=== PATIENT | male | born 1945 | race Caucasian/White ===

== ENCOUNTER 2022-03-13 10:39 | Outpatient (CLI) | payer OTHER, SELFPAY ==
[2022-03-13 21:44] LABS: Albumin* 4.6 g/dL (3.3-5.0); Chloride* 106 mmol/L (96-114)
[2022-03-13 21:45] LABS: Potassium* 5.2 mmol/L (3.6-5.1); Sodium* 137 mmol/L (135-149)
[2022-03-13 21:47] LABS: Aspartate Amino Transferase* 42 U/L (12-35); Bilirubin Total* 1.4 mg/dL (0.1-1.5); Carbon Dioxide* 20 mmol/L (20-32); Cholesterol* 162 mg/dL (90-199); Creatinine* 1.6 mg/dL (0.5-1.5); Estimated Glomerular Filt Rate 44 ml/min; Total Protein* 7.4 g/dL (6.0-8.3)
[2022-03-13 21:48] LABS: Alanine Aminotransferase* 14 U/L (4-50); Alkaline Phosphatase* 124 U/L (40-150); Blood Urea Nitrogen* 21 mg/dL (7-30); Calcium* 9.1 mg/dL (8.4-10.6); Glucose* 93 mg/dL (60-115); HDL Cholesterol* 53 mg/dL (>=40); LDL Cholesterol Calculated 87 mg/dL (<100); Triglycerides* 111 mg/dL (40-149)
[2022-03-13 23:40] LABS: PSA Screen* 0.66 ng/mL (0.10-4.00); Vitamin B12* 335 pg/mL (243-894)
[2022-03-15 19:43] LABS: Keppra (Levetiracetam) 14 ug/mL (10-40)
== END 2022-03-13 10:40 | disposition home or self-care (01) ==
PROVIDERS: PCP Physician Assistant Medical; Visit Provider Physician Assistant Medical
DX: Z00.00 Encounter for general adult medical examination without abnormal findings (principal); I10 Essential (primary) hypertension; N18.9 Chronic kidney disease, unspecified; E78.5 Hyperlipidemia, unspecified; G40.219 Localization-related (focal) (partial) symptomatic epilepsy and epileptic syndromes with complex partial seizures, intractable, without status epilepticus; Z13.29 Encounter for screening for other suspected endocrine disorder; Z12.5 Encounter for screening for malignant neoplasm of prostate
CPT/HCPCS: 80053; 80061; 80177; 82607; 84153; 84443

== ENCOUNTER 2022-03-17 07:53 | Outpatient (CLI) | payer OTHER, SELFPAY ==
--- NOTE | 2022-03-17 08:15 | CRLHL7_ITS ---
For Patients: As a result of the Century Cures Act, medical imaging exams and procedure reports are released immediately into your electronic medical record. You may view this report before your referring provider. If you have questions, please contact your health care provider. Examination: US abdominal aorta Indication: Abdominal aortic aneurysm screening. Technique: Hung scale and color Doppler images of the aorta and common iliac arteries are obtained. Comparison: None Findings: Proximal aorta: 2.6 x 3.0 cm Mid aorta: 2.1 x 2.6 cm Distal aorta: 3.1 x 3.5 cm Right common iliac artery: 1.3 x 1.6 cm Left common iliac artery: 1.3 x 1.6 cm Diffuse atherosclerotic disease. 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 Dictated by Wesley Verde MD @ 03/17/2022 8:51:34 AM (Electronically Signed)
== END 2022-03-17 07:54 | disposition home or self-care (01) ==
PROVIDERS: PCP Physician Assistant Medical; Visit Provider Physician Assistant Medical
DX: Z13.6 Encounter for screening for cardiovascular disorders (principal); I71.4 Abdominal aortic aneurysm, without rupture
CPT/HCPCS: 76706

== ENCOUNTER 2022-05-08 11:24 | Outpatient (CLI) | payer OTHER, SELFPAY ==
[2022-05-08 22:07] LABS: Potassium* 4.5 mmol/L (3.6-5.1)
== END 2022-05-08 11:25 | disposition home or self-care (01) ==
PROVIDERS: PCP Physician Assistant Medical; Visit Provider Physician Assistant Medical
DX: E87.5 Hyperkalemia (principal)
CPT/HCPCS: 84132

== ENCOUNTER 2022-07-27 16:03 | Outpatient (CLI) | payer OTHER, SELFPAY ==
[2022-07-27 13:42] LABS: Albumin* 4.3 g/dL (3.3-5.0); Chloride* 105 mmol/L (96-114)
[2022-07-27 13:43] LABS: Potassium* 4.8 mmol/L (3.6-5.1); Sodium* 138 mmol/L (135-149)
[2022-07-27 13:45] LABS: Alanine Aminotransferase* 21 U/L (4-50); Alkaline Phosphatase* 74 U/L (40-150); Aspartate Amino Transferase* 29 U/L (12-35); Blood Urea Nitrogen* 27 mg/dL (7-30); Carbon Dioxide* 26 mmol/L (20-32); Creatinine* 1.6 mg/dL (0.5-1.5); Estimated Glomerular Filt Rate 44 ml/min; Glucose* 91 mg/dL (60-115); Total Protein* 7.1 g/dL (6.0-8.3)
== END 2022-07-27 16:04 | disposition home or self-care (01) ==
PROVIDERS: PCP Physician Assistant Medical; Visit Provider Physician Assistant Medical
DX: N18.9 Chronic kidney disease, unspecified (principal); Z79.01 Long term (current) use of anticoagulants
CPT/HCPCS: 80053

== ENCOUNTER 2023-06-01 09:30 | Outpatient (CLI) | payer OTHER, SELFPAY | END 2023-06-01 09:31 | disposition home or self-care (01) | LOC: NFLDREF 06-04 07:45 | PROVIDERS: PCP Physician Assistant Medical; Referring Provider Physician Assistant Medical; Visit Provider Physician Assistant Medical | DX: I50.9 Heart failure, unspecified (principal); Z79.01 Long term (current) use of anticoagulants; Z12.5 Encounter for screening for malignant neoplasm of prostate | CPT/HCPCS: 80053; 80061; 84153 ==

== ENCOUNTER 2023-06-18 12:50 | Outpatient (CLI) | payer OTHER, SELFPAY | END 2023-06-18 12:51 | disposition home or self-care (01) | LOC: LKVREF 12:51 | PROVIDERS: PCP Physician Assistant Medical; Visit Provider Physician Assistant Medical | DX: I50.9 Heart failure, unspecified (principal); E87.5 Hyperkalemia | CPT/HCPCS: 83880 ==

== ENCOUNTER 2023-07-05 09:35 | Outpatient (CLI) | payer OTHER, SELFPAY | END 2023-07-05 09:36 | disposition home or self-care (01) | LOC: NFLDREF 07-11 20:21 | PROVIDERS: PCP Physician Assistant Medical; Referring Provider Physician Assistant Medical; Visit Provider Physician Assistant Medical | DX: Z79.01 Long term (current) use of anticoagulants (principal) | CPT/HCPCS: 85610 ==

== ENCOUNTER 2023-09-19 09:26 | Inpatient (IN) | payer OTHER, SELFPAY ==
[2023-09-19] VITALS (12 sets, daily range): BP systolic 139–199; BP diastolic 91–160; PULSE 53–70; RESP 14–20; TEMP 36.5–37; O2SAT 90–96; BMI 32.3; BMI 32.0
--- NOTE | 2023-09-19 09:38 | CT_ITS ---
Patient: MERCEDES MCDONOUGH Facility:?[facility] RIS Patient ID:?[id number] Site Patient ID:?[id number]. Site :?1945 Study:?CT-Head W/O STROKE PROTOCOL-09/19/2023 9:56:42 AM Ordering Physician:NATO Final Report: INDICATION: Stroke, left-sided weakness TECHNIQUE: CT of the head was performed without IV contrast. COMPARISON: 12/02/2020. FINDINGS: Parenchyma: No acute hemorrhage or large territory infarct. Moderate confluent periventricular white matter hypoattenuation is nonspecific and is favored to represent chronic small vessel ischemic disease. Right frontal lobe encephalomalacia. Chronic left cerebellar encephalomalacia. 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 Ventricles and extra-axial spaces: Appropriate for age. Visualized paranasal sinuses: Opacified left maxillary sinus with thickening of the left maxillary sinus bradshaw; dehiscence of the lateral wall the maxillary sinus. Mild mucosal thickening of the bilateral ethmoid sinuses. Mastoid air cells: Clear. Bones: No focal abnormality. Additional comment: Partial visualization of postsurgical changes from median sternotomy. IMPRESSION: 1. No acute hemorrhage or large territory infarct. 2. Chronic left maxillary sinusitis. Findings discussed with Dr. George at 10:06 a.m. on 09/19/2023. Please note that all CT scans at this facility use dose modulation, iterative reconstruction, and/or weight-based dosing when appropriate to reduce radiation dose to as low as reasonably achievable. Dictated by Memo Snyder MD @ 09/19/2023 10:07:52 AM Signed by:?Memo Snyder MD @09/19/2023 10:07:52 AM (Electronic Signature)
--- NOTE | 2023-09-19 09:42 | CT_ITS ---
Patient: MERCEDES MCDONOUGH Facility:?[facility] RIS Patient ID:?[id number] Site Patient ID:?[id number]. Site :?1945 Study:?CT-Head Angio CTA HEAD W/ISOVUE 370 95CC STROKE-09/19/2023 10:03:49 AM Ordering Physician:NATO Final Report: CT ANGIOGRAM HEAD DATE: 09/19/2023 CLINICAL HISTORY: Patient with left-sided weakness. TECHNIQUE: Standard helical CT image acquisition through the intracranial circulation following intravenous administration of contrast material with bolus tracking. 2D and 3D MIP images for post-processing were performed and interpreted on an independent workstation and 3D images were permanently archived. COMPARISON: CT same day. FINDINGS: There is no proximal intracranial large vessel occlusion. There is no intracranial aneurysm. The right internal carotid artery is normal. The right middle cerebral artery and its branches are normal. The right anterior cerebral artery and its branches are normal. The left internal carotid artery is normal. The left middle cerebral artery and its branches are normal. The left anterior cerebral artery and its branches are normal. The anterior communicating artery is well visualized and appears normal. The right vertebral artery and PICA are normal. The left vertebral artery and PICA are normal. The left vertebral artery is dominant. The basilar artery is patent and appears normal. The right posterior cerebral artery is normal. The left posterior cerebral artery is normal. The visualized venous structures are patent. IMPRESSION: Patent proximal intracranial vasculature. Findings were communicated to Dr. George at 10:05 AM. Please note that all CT scans at this facility use dose modulation, iterative reconstruction, and/or weight-based dosing when appropriate to reduce radiation dose to as low as reasonably achievable. Dictated by: Maxine Gupta MD @ 09/19/2023 10:11:39 Signed by:?Maxine Gupta MD @09/19/2023 10:11:39 AM (Electronic Signature)
--- NOTE | 2023-09-19 09:42 | CT_ITS ---
Patient: MERCEDES MCDONOUGH Facility:?[facility] RIS Patient ID:?[id number] Site Patient ID:?[id number]. Site :?1945 Study:?CT-Neck Angio CTA NECK W/ISOVUE 370 95CC STROKE-09/19/2023 10:03:26 AM Ordering Physician:NATO Final Report: CT ANGIOGRAM NECK DATE: 09/19/2023 CLINICAL HISTORY: Patient with left-sided weakness. TECHNIQUE: Standard helical CT image acquisition of the neck up to the skull base after bolus intravenous contrast enhancement. 2D and 3D MIP images for post-processing were performed and interpreted on an independent workstation and 3D images were permanently archived. COMPARISON: CT same day. FINDINGS: The origins of the great vessels from the aortic arch are patent. The origin of the right vertebral artery demonstrates severe narrowing. The origin of the left vertebral artery demonstrates mild narrowing. The common carotid arteries are patent. There is a mild (<50%) stenosis at the origin of the right internal carotid artery by NASCET criteria caused by calcified plaque with a >2mm residual lumen. There is a mild (<50%) stenosis at the origin of the left internal carotid artery by NASCET criteria caused by calcified plaque with a >2mm residual lumen. The rest of the cervical segments of the internal carotid arteries are patent up to the skull base. The left vertebral artery is dominant. The cervical segments of the vertebral arteries are patent up to the skull base. The visualized lung apices are unremarkable. The thyroid gland is unremarkable. The soft tissues of the neck are unremarkable. There are degenerative changes in the cervical spine. IMPRESSION: 1. Mild (<50%) stenosis at the origin of the right internal carotid artery by NASCET criteria caused by calcified plaque with a >2mm residual lumen. 2. Mild (<50%) stenosis at the origin of the left internal carotid artery by NASCET criteria caused by calcified plaque with a >2mm residual lumen. 3. Severe right and mild dominant left vertebral artery origin stenosis. Findings were communicated to Dr. George at 10:05 AM. Please note that all CT scans at this facility use dose modulation, iterative reconstruction, and/or weight-based dosing when appropriate to reduce radiation dose to as low as reasonably achievable. Dictated by: Maxine Gupta MD @ 09/19/2023 10:09:36 Signed by:?Maxine Gupta MD @09/19/2023 10:09:36 AM (Electronic Signature)
--- NOTE | 2023-09-19 09:46 | ED.GENADULT ---
HPI - General Adult General Chief complaint: Neuro Symptoms/Altered Deficit Stated complaint: Possible stroke Time Seen by Provider: 09/19/23 09:32 History of Present Illness HPI narrative: Patient is a 70 year white male that is had a history of ischemic cardiomyopathy, coronary artery aneurysm, chronic atrial fibrillation paroxysmal, on chronic Coumadin, who has had a history of a CVA in the past by chart review, presents with left arm weakness some tingling in his right arm weakness in his lower extremities bilaterally that started when he arose this morning. He reports that at midnight last night he was well helped his back from the bathroom. This morning when he got up at about 7:00 a.m. he sat up slowly in noticed tingling in his right arm and noticed that his left arm was not as good as it has been in trouble getting the bathroom, his family presents with him to the emergency department. He continues on Coumadin, his last INR is unknown. He has no chest pain, he still feels weak in his left upper extremity and some tingling this in his right arm but mostly is symptoms are no left arm. His visions not been affected, no facial asymmetry is been noted. By description it appears his last known well as about midnight last night Related Data Home Medications Medication Instructions Recorded Confirmed nitroglycerin 0.4 mg sublingual 0.4 mg sublingual Q5M PRN 02/02/22 06/18/23 tablet levetiracetam 500 mg tablet 500 mg PO BID 03/13/22 06/18/23 (Keppra) torsemide 5 mg tablet 5 mg PO 07/07/22 06/18/23 ascorbic acid (vitamin C) 500 mg 500 mg PO QDAY 10/14/22 06/18/23 tablet cholecalciferol (vitamin D3) 62.5 mcg PO .QD 10/14/22 06/18/23 mcg (2,500 unit) capsule amiodarone 200 mg tablet 200 mg PO BID 06/18/23 06/18/23 aspirin 81 mg chewable tablet 81 mg PO DAILY 09/06/23 09/06/23 Previous Rx's Medication Instructions Recorded benzonatate 200 mg capsule 200 mg PO TID PRN cough #30 caps 10/14/22 ezetimibe 10 mg tablet 10 mg PO QDAY #90 tabs 06/20/23 warfarin 1 mg tablet 1 mg PO DIRECTED #90 tabs 07/05/23 pantoprazole 40 mg tablet,delayed 40 mg PO QDAY #90 tabs 07/31/23 release metoprolol succinate 50 mg 50 mg PO QDAY #90 tabs 08/09/23 tablet,extended release 24 hr losartan 50 mg tablet 50 mg PO QDAY #90 tabs 09/06/23 Allergies Allergy/AdvReac Type Severity Reaction Status Date / Time amlodipine Allergy Severe hives/rash Verified 09/06/23 10:48 iothalamate Allergy Severe had to do Uncoded 09/06/23 10:48 chest compressions and shock heart with angio dye statins Allergy Intermediate muscle Uncoded 09/06/23 10:48 aches HMG-CoA reductase inhibitor AdvReac Intermediate muscle Uncoded 09/06/23 10:48 aches Review of Systems Status of ROS: Reports: 6 or more systems reviewed and unremarkable except as noted in History and below [facility] Medical History History of CVA (cerebrovascular accident) ?Z86.73 - Personal history of transient ischemic attack (TIA), and cerebral infarction without residual deficits (ICD-10) Flexion deformity, right elbow ?M21.221 - Flexion deformity, right elbow (ICD-10) Ribs, multiple fractures ?S22.49XA - Multiple fractures of ribs, unspecified side, initial encounter for closed fracture (ICD-10) BPPV (benign paroxysmal positional vertigo) ?H81.10 - Benign paroxysmal vertigo, unspecified ear (ICD-10) Surgical History History of three vessel coronary artery bypass ?Z95.1 - Presence of aortocoronary bypass graft (ICD-10) History of surgery on right wrist ?Z98.890 - Other specified postprocedural states (ICD-10) History of carpal tunnel surgery of left wrist ?Z98.890 - Other specified postprocedural states (ICD-10) History of ankle surgery ?Z98.890 - Other specified postprocedural states (ICD-10) Family History Mother Asthma Maternal Grandmother Diabetes Family/Other Cardiomyopathy Father High blood pressure Social History Narrative: Does not use illicit drugs Former smoker- quit in 2011 Occasional alcohol consumption Smoking Status: Former smoker Do you use any of these nicotine containing products: None Second hand tobacco smoke exposure: No How often do you have a drink containing alcohol: monthly or less How many standard drinks containing alcohol do you have on a typical day: 1 or 2 How often do you have six or more drinks on one occasion: Never AUDIT-C Alcohol total score: 1 Non-prescribed substance use: denies use Little interest or pleasure in doing things: more than half the days Feeling down, depressed, or hopeless: not at all service: No Exam Narrative: Exam Narrative: Objective: Patient's vital signs show blood pressure 187/1 60 and this will be recheck, his afebrile, his pulse is 56, O2 sat is 95% on room air He is alert orient x3, no facial asymmetry He does have weakness to grasp in his left upper extremity is unable to pronate and supinate his left upper extremity, but he is able to hold his arms forward and does not have significant drift for up to 10 seconds Heart rhyth regular with occasional ectopic beat, 2/6 systolic murmur Abdomen benign Extremities without edema 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 His sensation appears intact. Based on his NIH stroke scale this to be about 7 given his lateral gaze deficit, his left arm weakness. Const: Vital Signs, click to edit/add: Vital Signs - 24 hr 09/19/23 09:34 09/19/23 09:34 09/19/23 10:05 Temperature 97.7 F Pulse Rate 62 Pulse Rate [Pulse Oximeter] 56 L Respiratory Rate 20 17 Blood Pressure 192/112 H Blood Pressure [Le ft Upper Arm] 187/160 H Pulse Oximetry 95 94 94 Oxygen Delivery Me thod Room Air 09/19/23 10:15 09/19/23 10:30 09/19/23 10:48 Temperature Pulse Rate 58 L 61 56 L Pulse Rate [Pulse Oximeter] Respiratory Rate 14 14 18 Blood Pressure 182/105 H 173/118 H 188/96 H Blood Pressure [Le ft Upper Arm] Pulse Oximetry 96 94 90 Oxygen Delivery Me thod 09/19/23 11:02 09/19/23 11:15 Temperature Pulse Rate 59 L 61 Pulse Rate [Pulse Oximeter] Respiratory Rate 14 14 Blood Pressure 187/112 H 169/102 H Blood Pressure [Le ft Upper Arm] Pulse Oximetry 93 93 Oxygen Delivery Me thod Course Vital Signs Vital signs: Initial Vital Signs Temperature 97.7 F 09/19/23 09:34 Temperature Source Temporal Artery Scan 09/19/23 09:34 Pulse Rate 56 L 09/19/23 09:34 Pulse Rhythm Regular 09/19/23 09:34 Respiratory Rate 20 09/19/23 09:34 Blood Pressure 187/160 H 09/19/23 09:34 Blood Pressure Mean 169 H 09/19/23 09:34 Blood Pressure Position Supine 09/19/23 09:34 Pulse Oximetry 95 09/19/23 09:34 Oxygen Delivery Method Room Air 09/19/23 09:34 Vital Signs Temperature 97.7 F 09/19/23 09:34 Pulse Rate 56 L 09/19/23 09:34 Respiratory Rate 20 09/19/23 09:34 Blood Pressure 187/160 H 09/19/23 09:34 Pulse Oximetry 95 09/19/23 09:34 Oxygen Delivery Method Room Air 09/19/23 09:34 Temperature 97.7 F 09/19/23 11:35 Pulse Rate 56 L 09/19/23 11:35 Respiratory Rate 14 09/19/23 11:35 Blood Pressure 187/160 H 09/19/23 11:35 Pulse Oximetry 93 09/19/23 11:15 Oxygen Delivery Method Room Air 09/19/23 09:34 Medications Administered Medications: Discontinued Medications Generic Name Dose Route Start Last Admin Trade Name Freq PRN Reason Stop Dose Admin Aspirin 324 mg 09/19/23 10:09 09/19/23 10:17 Aspirin 81 Mg Tab.Chew PO 09/19/23 10:10 324 mg ONCE ONE Administration Sodium Chloride 500 mls @ 500 mls/hr 09/19/23 09:38 09/19/23 11:21 0.9 % Sodium Chloride 500 Ml IV 09/19/23 10:37 Infused .Q1H ONE Infusion Medical Decision Making MDM Narrative Medical decision making narrative: Patient is a 78-year-old male with history of stroke in the past by chart review, history of paroxysmal atrial fibrillation, on Coumadin. The patient appears to have a last known well at midnight last night. He did not feel well this morning when he got up. He describes mostly tingling in his right arm and left arm weakness, he reports both legs felt weak as well. He has not had any recent illness, no chest pain. He on presentation a stroke code was activated and he was sent to CT and CTA. Dr. missy ramires was consulted at [facility] and will do interview and give recommendations based on imaging studies. He is concerned that this far out there may not be much utility in treatment with lytics, but perhaps thrombectomy might be considered. Will discuss with the family and after Dr. mendez consults. Lab studies, EKG, telemetry monitoring, IV fluid to be given. Addendum 10:19 a.m. patient's head and neck CT scans are pretty unremarkable other than pretty significant narrowing of the right vertebral artery. Dr. Ramires reviewed the films. Wilmar that local care would be appropriate likely at this time given his duration of symptoms and findings on CT CTA. He did recommend aspirin be given. He will consult with the patient via video and give further recommendations. EKG by my read shows normal sinus rhythm with occasional PVCs no acute ST T wave changes. Dr. Ramires called back and did suggest getting an MRI of the head, increasing the patient's INR. Continuing aspirin. Lab Data Labs: Lab Results 09/19/23 09/19/23 Range/Units 09:40 09:47 WBC 5.73 (4.50-11.00) K/uL RBC 5.13 (4.30-5.90) m/uL Hgb 15.4 (13.5-17.5) gm/dL Hct 47.0 (37.0-53.0) % MCV 92 (80-100) fL MCH 30 (26-34) pg MCHC 33 (32-36) gm/dL RDW Coeff of Maximus 14.4 (11.5-15.5) % Plt Count 178 (140-440) K/uL Neut % (Auto) 68.5 (42.0-72.0) % Lymph % (Auto) 18.0 L (20-44) % Blaine % (Auto) 11.5 H (0.0-11.0) % Eos % (Auto) 1.6 (0.0-7.0) % Baso % (Auto) 0.2 (0.0-3.0) % Neut # (Auto) 3.93 (1.7-7.0) K/uL Lymph # (Auto) 1.00 (0.90-2.90) K/uL Blaine # (Auto) 0.70 (0.00-0.90) K/UL Eos # (Auto) 0.09 (0.00-0.50) K/uL Baso # (Auto) 0.01 (0.00-0.30) K/uL Abs Immat Gran (auto) 0.01 (0.00-0.30) K/uL Imm/Tot Granulo (auto) 0.2 % INR 1.77 H (0.91-1.10) APTT 32 (23-33) Seconds Sodium 138 (135-149) mmol/L Potassium 4.3 (3.6-5.1) mmol/L Chloride 107 (96-114) mmol/L Carbon Dioxide 23 (20-32) mmol/L Anion Gap 8 (7-15) mEq/L BUN 24 (7-30) mg/dL Creatinine 1.7 H (0.5-1.5) mg/dL Estimated Creat Clear 32.32 Estimated GFR 41 ml/min Glucose 99 (60-115) mg/dL Calcium 9.5 (8.4-10.6) mg/dL Total Bilirubin 1.1 (0.1-1.5) mg/dL Direct Bilirubin 0.2 (0.0-0.5) mg/dL AST 28 (12-35) U/L ALT 17 (4-50) U/L Alkaline Phosphatase 74 (40-150) U/L Troponin I < 0.01 L (0.01-0.04) ng/mL C-Reactive Protein < 0.5 L (0.5-1.0) mg/dL NT-Pro-B Natriuret Pep 921 pg/mL Total Protein 7.5 (6.0-8.3) g/dL Albumin 4.5 (3.3-5.0) g/dL Urine Color Yellow (Yellow) Urine Appearance Clear (Clear) Urine pH 7.5 (5.0-8.5) Ur Specific Blackstone 1.015 (1.000-1.030) Urine Protein 2+ A (Negative) Urine Glucose (UA) Negative (Negative) Urine Ketones Negative (Negative) Urine Blood Negative (Negative) Urine Nitrite Negative (Negative) Urine Bilirubin Negative (Negative) Urine Urobilinogen 0.2 (0.2-1.0) Ur Leukocyte Esterase Negative (Negative) Urine RBC 0-2 (0-2) Urine WBC 0-2 (0-5) Ur Squamous Epith Cells None (None-Few) Urine Bacteria None (None) SARS-CoV-2 (PCR) Negative SARS-CoV-2 (Negative) Influenza Type A (PCR) Negative PCR FLU A (Negative) Influenza Type B (PCR) Negative PCR FLU B (Negative) RSV (PCR) Negative PCR RSV (Negative) Discharge Plan Discharge Clinical Impression: Acute CVA (cerebrovascular accident) Patient Disposition: Admitted As Inpatient
[2023-09-19 10:07] LABS: Basophils Absolute Auto 0.01 K/uL (0.00-0.30); Basophils Percent Auto 0.2 % (0.0-3.0); Eosinophils Absolute Auto 0.09 K/uL (0.00-0.50); Eosinophils Percent Auto 1.6 % (0.0-7.0); Hemoglobin* 15.4 gm/dL (13.5-17.5); Immature Granulocytes Abs Auto 0.01 K/uL (0.00-0.30); Immature Granulocytes Pct Auto 0.2 %; Mean Corpuscular HGB Conc 33 gm/dL (32-36); Mean Corpuscular Hemoglobin 30 pg (26-34); Mean Corpuscular Volume 92 fL (80-100); Monocytes Percent Auto 11.5 % (0.0-11.0); Neutrophils Absolute Auto 3.93 K/uL (1.7-7.0); Neutrophils Percent Auto 68.5 % (42.0-72.0); Platelet Count* 178 K/uL (140-440); RDW Coefficient of Variation % 14.4 % (11.5-15.5); Red Blood Count 5.13 m/uL (4.30-5.90); Slide Review Reflex No; White Blood Count* 5.73 K/uL (4.50-11.00)
[2023-09-19 10:10] LABS: Albumin* 4.5 g/dL (3.3-5.0); Chloride* 107 mmol/L (96-114); Sodium* 138 mmol/L (135-149)
[2023-09-19 10:11] LABS: Potassium* 4.3 mmol/L (3.6-5.1)
[2023-09-19 10:13] LABS: Anion Gap 8 mEq/L (7-15); Aspartate Amino Transferase* 28 U/L (12-35); Bilirubin Direct* 0.2 mg/dL (0.0-0.5); Bilirubin Total* 1.1 mg/dL (0.1-1.5); Blood Urea Nitrogen* 24 mg/dL (7-30); Carbon Dioxide* 23 mmol/L (20-32); Creatinine* 1.7 mg/dL (0.5-1.5); Est. Creatinine Clearance* 32.32; Estimated Glomerular Filt Rate 41 ml/min; Total Protein* 7.5 g/dL (6.0-8.3)
[2023-09-19 10:14] LABS: Alanine Aminotransferase* 17 U/L (4-50); Alkaline Phosphatase* 74 U/L (40-150); Calcium* 9.5 mg/dL (8.4-10.6); Glucose* 99 mg/dL (60-115)
[2023-09-19] MEDS: ASPIRIN 81 MG TAB.CHEW 324 MG PO (10:17)
[2023-09-19] MEDS: 0.9 % SODIUM CHLORIDE 500 ML 500 ML IV (10:18)
[2023-09-19 10:26] LABS: C Reactive Protein* < 0.5 mg/dL (0.5-1.0); NT Pro B Type NatriureticPept* 921 pg/mL; Troponin I* < 0.01 ng/mL (0.01-0.04)
[2023-09-19 10:30] LABS: INR 1.77 (0.91-1.10); Prothrombin Time 21.8 Seconds
[2023-09-19 10:31] LABS: Partial Thromboplastin Time* 32 Seconds (23-33)
[2023-09-19 10:33] LABS: PCR FLU A Negative PCR FLU A (Negative); PCR FLU B Negative PCR FLU B (Negative); PCR RSV Negative PCR RSV (Negative); SARS PCR* Negative SARS-CoV-2 (Negative)
[2023-09-19 10:59] LABS: Appearance Urine Clear (Clear); Bilirubin Urine Negative (Negative); Blood Urine Negative (Negative); Color Urine Yellow (Yellow); Glucose Urine Negative (Negative); Ketones Urine Negative (Negative); Leukocyte Esterase Urine Negative (Negative); Nitrite Urine Negative (Negative); Protein Urine 2+ (Negative); Specific Gravity Urine 1.015 (1.000-1.030); Urobilinogen Urine 0.2 (0.2-1.0); pH Urine 7.5 (5.0-8.5)
[2023-09-19 11:09] LABS: RBC Urine 0-2 (0-2); WBC Urine 0-2 (0-5)
--- NOTE | 2023-09-19 13:05 | MR_ITS ---
Patient: MERCEDES MCDONOUGH Facility:?[facility] RIS Patient ID:?[id number] Site Patient ID:?[id number]. Site :?1945 Study:?MRI-Head W/O-09/19/2023 3:39:09 PM Ordering Physician:ATPAN CORCORAN Final Report: Indication: Left face and arm numbness. Technique: Multiplanar, multisequence MRI of the brain was performed without intravenous contrast. Comparison: CT head 09/19/2023. MR brain 12/03/2020. Findings: Moderate thinning of the corpus callosum. Partially empty sella morphology. Moderate degenerative change visualized upper cervical spine. Innumerable foci of restricted diffusion, predominantly involving the right cerebral hemisphere and cerebellum although also involving the left parietal, occipital, medial temporal regions and cerebellum. There is corresponding T2 FLAIR hyperintensity. The ventricles are proportionate to the cerebral sulci. The 4th ventricle appears midline. The basal cisterns appear patent. No abnormal extra-axial fluid collection identified. Moderate parenchymal volume loss. Progressed moderate T2 FLAIR hyperintense foci within the subcortical and periventricular white matter, favored to represent chronic ischemic microvascular disease. Chronic right frontal and bilateral cerebellar infarcts. There is no intracranial mass, abnormal mass-effect or midline shift identified. Both globes are preserved. Severe left maxillary sinus mucosal disease. Impression: 1. Hfixq-[id number]-left diffuse/innumerable foci of cerebral and cerebellar acute/subacute infarcts. Overall this is suggestive of a central embolic phenomena. 2. Progressed moderate chronic ischemic microvascular disease. 3. Stable chronic right frontal and bilateral cerebellar infarcts. Dictated by Torsten Zhong MD @ 09/19/2023 3:54:26 PM Signed by:?Torsten Zhong MD @09/19/2023 3:54:26 PM (Electronic Signature)
[2023-09-19 13:22] LABS: Lab Add On Test New Spec Needed
--- NOTE | 2023-09-19 14:05 | P.IMHP_ITS ---
Hospitalist- H&P: HPI History of Present Illness Date Seen: 09/19/23 Chief complaint: Possible stroke Narrative: Isra Lehman is a 78 year old male with a history of ischemic stroke, anticoagulation with Coumadin for atrial fibrillation, coronary artery disease for which he has had a CABG, hypertension and hyperlipidemia presented through the ER today for concerns of left arm weakness. His son, Jelani, is here with him and helps to give history. Marino was up around midnight helping his get to the bathroom and back and felt okay at that time, but was not seen by anyone other than his who has some cognitive impairment and could not contribute meaningfully to the history although she is in the room with us. At 7 in the morning when he woke up, his son who lives with them, had to help him get his medications because his left arm was not working. Jelani noticed that Marino was also leaning to the left and seem to be having trouble walking with what looked like a weak left leg. Marino tells me that he has been having trouble keeping his INR within the 2-3 range recently since he started amiodarone 3 months ago. He also notes that he sometimes goes out for salad at [facility] and that seems to throw off his INR as well. He denies any headache, dizziness or lightheadedness, chest pain or shortness of breath. Jelani notes that Marino's left arm is already starting to move better than it was in the emergency department. Review of Systems Status of ROS: Reports: 10 or more systems reviewed and unremarkable except as noted in History and below [facility] Medical History (Updated 09/19/23 @ 19:01 by Laila Villalta MD) Ascending aortic aneurysm ?I71.21 - Aneurysm of the ascending aorta, without rupture (ICD-10) Abdominal aortic aneurysm (AAA) ?I71.40 - Abdominal aortic aneurysm, without rupture, unspecified (ICD-10) Former smoker ?Z87.891 - Personal history of nicotine dependence (ICD-10) Long-term (current) use of anticoagulants, INR goal 2.0-3.0 ?Z79.01 - [facility] (current) use of anticoagulants (ICD-10) Partial symptomatic epilepsy with complex partial seizures, intractable, without status epilepticus ?G40.219 - Localization-related (focal) (partial) symptomatic epilepsy and epileptic syndromes with complex partial seizures, intractable, without status epilepticus (ICD-10) Paroxysmal atrial fibrillation ?I48.0 - Paroxysmal atrial fibrillation (ICD-10) Hyperlipidemia ?E78.5 - Hyperlipidemia, unspecified (ICD-10) Gastroesophageal reflux ?K21.9 - Gastro-esophageal reflux disease without esophagitis (ICD-10) 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 - Ventricular premature depolarization (ICD-10) Coronary artery aneurysm ?I25.41 - Coronary artery aneurysm (ICD-10) COPD (chronic obstructive pulmonary disease) ?J44.9 - Chronic obstructive pulmonary disease, unspecified (ICD-10) Congestive heart failure ?I50.9 - Heart failure, unspecified (ICD-10) CKD (chronic kidney disease) ?N18.9 - Chronic kidney disease, unspecified (ICD-10) Cerebrovascular disease ?I67.9 - Cerebrovascular disease, unspecified (ICD-10) Coronary artery disease ?I25.10 - Atherosclerotic heart disease of nikolski coronary artery without angina pectoris (ICD-10) Hypertension ?I10 - Essential (primary) hypertension (ICD-10) History of CVA (cerebrovascular accident) ?Z86.73 - Personal history of transient ischemic attack (TIA), and cerebral infarction without residual deficits (ICD-10) Flexion deformity, right elbow ?M21.221 - Flexion deformity, right elbow (ICD-10) Ribs, multiple fractures ?S22.49XA - Multiple fractures of ribs, unspecified side, initial encounter for closed fracture (ICD-10) BPPV (benign paroxysmal positional vertigo) ?H81.10 - Benign paroxysmal vertigo, unspecified ear (ICD-10) Surgical History History of three vessel coronary artery bypass ?Z95.1 - Presence of aortocoronary bypass graft (ICD-10) History of surgery on right wrist ?Z98.890 - Other specified postprocedural states (ICD-10) History of carpal tunnel surgery of left wrist ?Z98.890 - Other specified postprocedural states (ICD-10) History of ankle surgery ?Z98.890 - Other specified postprocedural states (ICD-10) Family History Mother Asthma Maternal Grandmother Diabetes Family/Other Cardiomyopathy Father High blood pressure Social History (Updated 09/19/23 @ 18:10 by Laila Villalta MD) Narrative: . is undergoing treatment for Multiple Myeloma and has some cognitive impairment. Son, Jelani, lives with them and sets up meds for patient's . Son works during the day and stops by the house or calls 1-5 times during the work day to check on them. Does not use illicit drugs Former smoker- quit in 2011 Occasional alcohol consumption What is your current living situation?: I presently have a place to live Problems where you live: no known problems Problems where you live details: N/A In the past 12 months, utilities in danger of being shut off: no In past 12 months, lack of transportation kept you from medical appts, meetings, work, or getting things needed for daily living: no In the past 12 mos, have been you worried that your food would run out before you had money to buy more?: never true In the past 12 mos, the food you bought just didn't last and you didn't have money to buy more?: never true Smoking Status: Former smoker Do you use any of these nicotine containing products: None Second hand tobacco smoke exposure: No How often do you have a drink containing alcohol: monthly or less How many standard drinks containing alcohol do you have on a typical day: 1 or 2 How often do you have six or more drinks on one occasion: Never AUDIT-C Alcohol total score: 1 Non-prescribed substance use: denies use How often does anyone, including family, friends and others, physically hurt you : never How often does anyone, including family, friends and others, insult or talk down to you: never How often does anyone, including family, friends and others, threaten you with harm: never How often does anyone, including family, friends and others, scream or curse at you: never Little interest or pleasure in doing things: more than half the days Feeling down, depressed, or hopeless: not at all service: No Meds Home Medications and Allergies Home Medications Medication Instructions Recorded Confirmed Type nitroglycerin 0.4 mg sublingual 0.4 mg sublingual Q5M PRN 02/02/22 09/19/23 History tablet levetiracetam 500 mg tablet 500 mg PO BID 03/13/22 09/19/23 History (Keppra) torsemide 5 mg tablet 5 mg PO DAILY 07/07/22 09/19/23 History ascorbic acid (vitamin C) 500 mg 500 mg PO DAILY 10/14/22 09/19/23 History tablet amiodarone 200 mg tablet 200 mg PO DAILY 06/18/23 09/19/23 History acetaminophen 325 mg tablet 650 mg PO Q6H PRN 09/19/23 09/19/23 History aspirin 81 mg tablet,delayed 81 mg PO DAILY 09/19/23 09/19/23 History release cholecalciferol (vitamin D3) 125 125 mcg PO DAILY 09/19/23 09/19/23 History mcg (5,000 unit) capsule ezetimibe 10 mg tablet 10 mg PO HS 09/19/23 09/19/23 History losartan 50 mg tablet 50 mg PO HS 09/19/23 09/19/23 History melatonin 5 mg capsule 5 mg PO HS PRN 09/19/23 09/19/23 History metoprolol succinate 50 mg 50 mg PO HS 09/19/23 09/19/23 History tablet,extended release 24 hr pantoprazole 40 mg tablet,delayed 40 mg PO DAILY 09/19/23 09/19/23 History release rosuvastatin 5 mg tablet 5 mg PO MOWEFR@21 09/19/23 09/19/23 History warfarin 1 mg tablet 1 mg PO HS 09/19/23 09/19/23 History Allergies Allergy/AdvReac Type Severity Reaction Status Date / Time amlodipine Allergy Severe hives/rash Verified 09/06/23 10:48 iothalamate Allergy Severe had to do Uncoded 09/06/23 10:48 chest compressions and shock heart with angio dye statins Allergy Intermediate muscle Uncoded 09/06/23 10:48 aches HMG-CoA reductase inhibitor AdvReac Intermediate muscle Uncoded 09/06/23 10:48 aches Exam Narrative: Exam Narrative: General: No acute distress. Awake alert oriented x3. Speech is clear. HEENT: Normocephalic atraumatic, pupils equally round and reactive to light and accommodation. Oropharynx clear. Mucous membranes are moist. No cervical lymphadenopathy, thyromegaly or carotid bruits. No JVD. Cardiovascular: Regular rate and rhythm. Grade 2/6 systolic murmur loudest at left sternal border. Chest: No increased work of breathing. Clear to auscultation bilaterally. No crackles or wheezes. Abdomen: Bowel sounds present. Soft, nondistended, nontender. No hepatosplenomegaly or masses. Extremities: No edema, no cyanosis or clubbing. Skin: No jaundice, no pallor, no rashes. Neuro: Unable to do Romberg due to his inability told his left arm up for an extended period of time. While in the bed, patient repeatedly leaned profoundly to the left despite being repositioned multiple times. Left lower facial droop noted. Cranial nerves 2-12 are otherwise intact. Extraocular movements are full. No nystagmus. No facial asymmetry. Tongue is midline. Peripheral vision and vision are grossly intact. Strength is diminished in the entire left upper extremity with strength of 3/5 in the shoulder and city assessor strength of 2/5. Left lower extremity strength is 4/5 right upper and lower extremity strength are 5/5. Light touch sensation is intact in face body and extremities. Coordination is somewhat diminished in the left upper extremity but otherwise intact in right upper and both lower extremities. Const: Vital Signs, click to edit/add: Vital Signs - 24 hr 09/19/23 09:34 09/19/23 09:34 09/19/23 10:05 Temperature 97.7 F Pulse Rate 62 Pulse Rate [Pulse Oximeter] 56 L Respiratory Rate 20 17 Blood Pressure 192/112 H Blood Pressure [Le ft Upper Arm] 187/160 H Pulse Oximetry 95 94 94 Oxygen Delivery Me od Room Air 09/19/23 10:15 09/19/23 10:30 09/19/23 10:48 Temperature Pulse Rate 58 L 61 56 L Pulse Rate [Pulse Oximeter] Respiratory Rate 14 14 18 Blood Pressure 182/105 H 173/118 H 188/96 H Blood Pressure [Le ft Upper Arm] Pulse Oximetry 96 94 90 Oxygen Delivery Me thod 09/19/23 11:02 09/19/23 11:15 09/19/23 11:35 Temperature 97.7 F Pulse Rate 59 L 61 Pulse Rate [Pulse Oximeter] 56 L Respiratory Rate 14 14 14 Blood Pressure 187/112 H 169/102 H Blood Pressure [Le ft Upper Arm] 187/160 H Pulse Oximetry 93 93 Oxygen Delivery Me thod Hospitalist - H&P: Result Labs Labs: Short CBC 09/19/23 Range/Units 09:47 WBC 5.73 (4.50-11.00) K/uL Hgb 15.4 (13.5-17.5) gm/dL Hct 47.0 (37.0-53.0) % Plt Count 178 (140-440) K/uL BMP 09/19/23 09:47 Sodium 138 Potassium 4.3 Chloride 107 Carbon Dioxide 23 BUN 24 Creatinine 1.7 H Glucose 99 Calcium 9.5 Cardiac Enzymes 09/19/23 Range/Units 09:47 Troponin I < 0.01 L (0.01-0.04) ng/mL Liver Function 09/19/23 Range/Units 09:47 Total Bilirubin 1.1 (0.1-1.5) mg/dL Direct Bilirubin 0.2 (0.0-0.5) mg/dL AST 28 (12-35) U/L ALT 17 (4-50) U/L Alkaline Phosphatase 74 (40-150) U/L Albumin 4.5 (3.3-5.0) g/dL Urine 09/19/23 Range/Units 09:40 Urine Color Yellow (Yellow) Urine Appearance Clear (Clear) Urine pH 7.5 (5.0-8.5) Ur Specific [place] 1.015 (1.000-1.030) Urine Protein 2+ A (Negative) Urine Glucose (UA) Negative (Negative) Study: CT-Head W/O STROKE PROTOCOL-09/19/2023 9:56:42 AM Ordering Physician: RAVEN Final Report: INDICATION: Stroke, left-sided weakness TECHNIQUE: CT of the head was performed without IV contrast. COMPARISON: 12/02/2020. FINDINGS: Parenchyma: No acute hemorrhage or large territory infarct. Moderate confluent periventricular white matter hypoattenuation is nonspecific and is favored to represent chronic small vessel ischemic disease. Right frontal lobe encephalomalacia. Chronic left cerebellar encephalomalacia. 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 Ventricles and extra-axial spaces: Appropriate for age. Visualized paranasal sinuses: Opacified left maxillary sinus with thickening of the left maxillary sinus bradshaw; dehiscence of the lateral wall the maxillary sinus. Mild mucosal thickening of the bilateral ethmoid sinuses. Mastoid air cells: Clear. Bones: No focal abnormality. Additional comment: Partial visualization of postsurgical changes from median sternotomy. IMPRESSION: 1. No acute hemorrhage or large territory infarct. 2. Chronic left maxillary sinusitis. Findings discussed with Dr. George at 10:06 a.m. on 09/19/2023. Please note that all CT scans at this facility use dose modulation, iterative re construction, and/or weight-based dosing when appropriate to reduce radiation dose to as low as reasonably achievable. Dictated by Memo Snyder MD @ 09/19/2023 10:07:52 AM Signed by: Memo Snyder MD @09/19/2023 10:07:52 AM (Electronic Signature) Dictated By: Lillian Starks MD Signed By: 09/19/23 1034 DD/ 1007 TD/TT: 09/19/23 1033 Study: CT-Head Angio CTA HEAD W/ISOVUE 370 95CC STROKE-09/19/2023 10:03:49 AM Ordering Physician: RAVEN Final Report: CT ANGIOGRAM HEAD DATE: 09/19/2023 CLINICAL HISTORY: Patient with left-sided weakness. TECHNIQUE: Standard helical CT image acquisition through the intracranial circulation following intravenous administration of contrast material with bolus tracking. 2D and 3D MIP images for post-processing were performed and interpreted on an independent workstation and 3D images were permanently archived. COMPARISON: CT same day. FINDINGS: There is no proximal intracranial large vessel occlusion. There is no intracranial aneurysm. The right internal carotid artery is normal. The right middle cerebral artery and its branches are normal. The right anterior cerebral artery and its branches are normal. The left internal carotid artery is normal. The left middle cerebral artery and its branches are normal. The left anterior cerebral artery and its branches are normal. The anterior communicating artery is well visualized and appears normal. The right vertebral artery and PICA are normal. The left vertebral artery and PICA are normal. The left vertebral artery is dominant. The basilar artery is patent and appears normal. The right posterior cerebral artery is normal. The left posterior cerebral artery is normal. The visualized venous structures are patent. IMPRESSION: Patent proximal intracranial vasculature. Findings were communicated to Dr. George at 10:05 AM. Please note that all CT scans at this facility use dose modulation, iterative reconstruction, and/or weight-based dosing when appropriate to reduce radiation dose to as low as reasonably achievable. Dictated by: Maxine Gupta MD @ 09/19/2023 10:11:39 Signed by: Maxine Gupta MD @09/19/2023 10:11:39 AM (Electronic Signature) Dictated By: Maxine Gupta M.D. Signed By: 09/19/23 1035 DD/ 1011 TD/TT: 09/19/23 1034 Study: CT-Neck Angio CTA NECK W/ISOVUE 370 95CC STROKE-09/19/2023 10:03:26 AM Ordering Physician: RAVEN Final Report: CT ANGIOGRAM NECK DATE: 09/19/2023 CLINICAL HISTORY: Patient with left-sided weakness. TECHNIQUE: Standard helical CT image acquisition of the neck up to the skull base after bolus intravenous contrast enhancement. 2D and 3D MIP images for post-processing were performed and interpreted on an independent workstation and 3D images were permanently archived. COMPARISON: CT same day. FINDINGS: The origins of the great vessels from the aortic arch are patent. The origin of the right vertebral artery demonstrates severe narrowing. The origin of the left vertebral artery demonstrates mild narrowing. The common carotid arteries are patent. There is a mild (<50%) stenosis at the origin of the right internal carotid artery by NASCET criteria caused by calcified plaque with a >2mm residual lumen. There is a mild (<50%) stenosis at the origin of the left internal carotid artery by NASCET criteria caused by calcified plaque with a >2mm residual lumen. The rest of the cervical segments of the internal carotid arteries are patent up to the skull base. The left vertebral artery is dominant. The cervical segments of the vertebral arteries are patent up to the skull base. The visualized lung apices are unremarkable. The thyroid gland is unremarkable. The soft tissues of the neck are unremarkable. There are degenerative changes in the cervical spine. IMPRESSION: 1. Mild (<50%) stenosis at the origin of the right internal carotid artery by NASCET criteria caused by calcified plaque with a >2mm residual lumen. 2. Mild (<50%) stenosis at the origin of the left internal carotid artery by NASCET criteria caused by calcified plaque with a >2mm residual lumen. 3. Severe right and mild dominant left vertebral artery origin stenosis. Findings were communicated to Dr. George at 10:05 AM. Please note that all CT scans at this facility use dose modulation, iterative reconstruction, and/or weight-based dosing when appropriate to reduce radiation dose to as low as reasonably achievable. Dictated by: Maxine Gupta MD @ 09/19/2023 10:09:36 Signed by: Maxine Gupta MD @09/19/2023 10:09:36 AM (Electronic Signature) Dictated By: Maxine Gupta M.D. Signed By: 09/19/23 1032 DD/ 1009 TD/TT: 09/19/23 1031 Assessment and Plan Assessment and plan (1) Acute CVA (cerebrovascular accident): Problem comment: - Appreciate Dr. George's recommendations. - symptoms are most concerning for stroke although patient does have a remote seizure history for which he has been on Keppra. I will admit Marino for observation and obtain an MRI, echocardiogram, continuous cardiac monitoring, neuro checks, seizure precautions, anticoagulation and anti-platelet therapy. Will allow for permissive hypertension. Per Dr. George's recommendations I will also give gentle IV fluids. I spoke with the patient's dry cans operator, Dr. Gardner from [facility], regarding anticoagulation. We spoke about the patient's recent difficulty in keeping the INR within the goal range and the possibility of using apixaban. His dry cans operator noted that due to coronary artery ectasias, PFO, and mural thrombus history they had been keeping him on warfarin, but with his more recent difficulty having a stable INR and if this is truly a stroke, then it would be beneficial for him to gone 1 of the newer anticoagulants, preferably apixaban. Dr. Gardner noted that the patient's most recent echocardiogram in May 2023 showed an EF of 56% and there were no wall motion abnormalities and no mural thrombus. Status: Acute (2) Long-term (current) use of anticoagulants, INR goal 2.0-3.0: Problem comment: indication: a-fib, duration: lifelong Status: Chronic (3) Obstructive sleep apnea treated with continuous positive airway pressure (CPAP): Status: Chronic (4) Paroxysmal atrial fibrillation: Problem comment: 06/15/2023-saw cardiology. Started amiodarone, Holter monitor indicated that he was having asymptomatic ventricular ectopy including the interval increased burden in ventricular premature complexes as well as multiple runs of ventricular tachycardia. - good rate control, also see acute CVA above for anticoagulation discussion Status: Chronic (5) Partial symptomatic epilepsy with complex partial seizures, intractable, without status epilepticus: Problem comment: Continue Keppra, seizure precautions Status: Chronic (6) Hyperlipidemia: Problem comment: Continue rosuvastatin Status: Chronic (7) CKD (chronic kidney disease): Problem comment: Appears to be at baseline kidney function. Will need renal dosing if starting apixaban. Recheck renal function in the morning. Status: Chronic (8) Cerebrovascular disease: Problem comment: 11/2020- [facility] Status: Chronic (9) Hypertension: Problem comment: Allow for permissive hypertension for the next 72 hours. Status: Chronic Total Time Spent Total Time Spent: Today I spent 70 minutes admitting the patient. Greater than 50% included 3 different visits with the patient and his family reviewing history, medications, and results as well as 10 minute phone call with the patient's dry cans operator and reviewing [facility] records through [facility] [facility] EMR.
[2023-09-19 14:12] LABS: Troponin I* < 0.01 ng/mL (0.01-0.04)
[2023-09-19] MEDS: PERFLUTREN LIPID MICROSPHERES 2 ML VIAL IV (15:53)
[2023-09-19] MEDS: 0.9 % SODIUM CHLORIDE 1000 ml 1,000 ML 75 ML IV (16:24)
[2023-09-19] MEDS: WARFARIN 2 MG TABLET 1 MG PO (17:15)
[2023-09-19] MEDS: ROSUVASTATIN CALCIUM 10 MG TABLET 5 MG PO (21:59)
[2023-09-19] MEDS: METOPROLOL SUCCINATE (XL) 50 MG TAB PO (21:59)
[2023-09-19] MEDS: EZETIMIBE 10 MG TABLET PO (21:59)
[2023-09-19] MEDS: levETIRAcetam 500 MG TABLET PO (21:59)
[2023-09-20 03:00] VITALS: BP 143/90; PULSE 58; RESP 18; TEMP 36.6; O2SAT 95
[2023-09-20 06:28] LABS: Basophils Absolute Auto 0.01 K/uL (0.00-0.30); Basophils Percent Auto 0.2 % (0.0-3.0); Eosinophils Percent Auto 1.6 % (0.0-7.0); Hematocrit 45.4 % (37.0-53.0); Hemoglobin* 14.5 gm/dL (13.5-17.5); Immature Granulocytes Abs Auto 0.01 K/uL (0.00-0.30); Immature Granulocytes Pct Auto 0.2 %; Lymphocytes Percent Auto 21.4 % (20-44); Mean Corpuscular HGB Conc 32 gm/dL (32-36); Mean Corpuscular Hemoglobin 29 pg (26-34); Mean Corpuscular Volume 92 fL (80-100); Monocytes Percent Auto 12.2 % (0.0-11.0); Neutrophils Absolute Auto 3.91 K/uL (1.7-7.0); Neutrophils Percent Auto 64.4 % (42.0-72.0); Platelet Count* 170 K/uL (140-440); RDW Coefficient of Variation % 14.7 % (11.5-15.5); Red Blood Count 4.95 m/uL (4.30-5.90); White Blood Count* 6.07 K/uL (4.50-11.00)
[2023-09-20 06:32] LABS: Slide Review Reflex No
--- NOTE | 2023-09-20 06:35 | PC.NURSE ---
Shift note: Pt is alert and oriented to self, time, place and situation, answering questions correctly, using call-light appropriately. However seems slightly confused this morning: repeating the same questions, have some trouble making simple decisions, needs cuing with ambulation and the bathroom. Pt have been incontinent overnight, his left arm is still severely weak.
[2023-09-20] MEDS: OMEPRAZOLE 20 MG CAPSULE DR 40 MG PO (06:43)
[2023-09-20 06:44] LABS: Chloride* 109 mmol/L (96-114); Sodium* 139 mmol/L (135-149)
[2023-09-20 06:47] LABS: Anion Gap 7 mEq/L (7-15); Blood Urea Nitrogen* 21 mg/dL (7-30); Carbon Dioxide* 23 mmol/L (20-32); Cholesterol* 133 mg/dL (90-199); Creatinine* 1.7 mg/dL (0.5-1.5); Est. Creatinine Clearance* 32.32; Estimated Glomerular Filt Rate 41 ml/min
[2023-09-20 06:48] LABS: Calcium* 8.9 mg/dL (8.4-10.6); Glucose* 94 mg/dL (60-115); HDL Cholesterol* 53 mg/dL (>=40); LDL Cholesterol Calculated 66 mg/dL (<100); Triglycerides* 71 mg/dL (40-149)
[2023-09-20 07:00] VITALS: BP 154/88; PULSE 64; RESP 18; TEMP 36.6; O2SAT 95
[2023-09-20 07:10] LABS: INR 1.72 (0.91-1.10); Prothrombin Time 21.4 Seconds
[2023-09-20] MEDS: AMIODARONE 200 MG TABLET PO (09:59)
[2023-09-20] MEDS: ASCORBIC ACID 500 MG TABLET PO (09:59)
[2023-09-20] MEDS: SODIUM CHLORIDE 0.9 % (FLUSH) 10 ML SYRINGE 5 ML IVF ×2 (10:00→20:54)
[2023-09-20] MEDS: ASPIRIN 81 MG TABLET EC PO (10:00)
[2023-09-20] MEDS: TORSEMIDE 5 MG TABLET PO (10:00)
[2023-09-20] MEDS: levETIRAcetam 500 MG TABLET PO ×2 (10:00→20:53)
[2023-09-20 11:00] VITALS: BP 147/94; RESP 16; TEMP 36.6; O2SAT 93
--- NOTE | 2023-09-20 14:43 | PM.IMPN1 ---
Progress Note: A&P Assessment and plan (1) Acute CVA (cerebrovascular accident): Problem details: - Appreciate Dr. George's recommendations. - symptoms are most concerning for stroke although patient does have a remote seizure history for which he has been on Keppra. I will admit Marino for observation and obtain an MRI, echocardiogram, continuous cardiac monitoring, neuro checks, seizure precautions, anticoagulation and anti-platelet therapy. Will allow for permissive hypertension. Per Dr. George's recommendations I will also give gentle IV fluids. I spoke with the patient's director cloud transformation, Dr. Gardner from [place], regarding anticoagulation. We spoke about the patient's recent difficulty in keeping the INR within the goal range and the possibility of using apixaban. His director cloud transformation noted that due to coronary artery ectasias, PFO, and mural thrombus history they had been keeping him on warfarin, but with his more recent difficulty having a stable INR and if this is truly a stroke, then it would be beneficial for him to gone 1 of the newer anticoagulants, preferably apixaban. Dr. Gardner noted that the patient's most recent echocardiogram in May 2023 showed an EF of 56% and there were no wall motion abnormalities and no mural thrombus. 09/20: MRI showing right greater than left diffuse/innumerable foci of cerebellar and cerebral acute/subacute infarcts. Overall suggested of a central embolic phenomena. Cardioembolic in nature. Neurology follow-up recommending to stop Coumadin, start Eliquis 5 mg twice daily on 09/20. Okay to continue home metoprolol, not recommending starting any new antihypertensives currently. Status: Acute (2) Paroxysmal atrial fibrillation: Problem details: 06/15/2023-saw cardiology. Started amiodarone, Holter monitor indicated that he was having asymptomatic ventricular ectopy including the interval increased burden in ventricular premature complexes as well as multiple runs of ventricular tachycardia. - good rate control, also see acute CVA above for anticoagulation discussion 09/19: DC Coumadin, start Eliquis 5 mg b.i.d. on 09/20 (consider adjusting dose for age and kidney function in 2 years). Continue amiodarone, metoprolol. Status: Chronic (3) Obstructive sleep apnea treated with continuous positive airway pressure (CPAP): Problem details: CPAP Status: Chronic (4) Partial symptomatic epilepsy with complex partial seizures, intractable, without status epilepticus: Problem details: Continue Keppra, seizure precautions Status: Chronic (5) Hyperlipidemia: Problem details: Continue rosuvastatin Status: Chronic (6) CKD (chronic kidney disease): Problem details: Appears to be at baseline kidney function, 1.6-2.0. Per neurology recommendations, start Eliquis 5 mg b.i.d., may need to consider reducing to 2.5 mg twice daily in 2 years) Status: Chronic (7) Cerebrovascular disease: Problem details: Aspirin, statin Status: Chronic (8) Hypertension: Problem details: Allow for permissive hypertension for 72 hours. Continue metoprolol. Neurology recommending not to add any further antihypertensives. Status: Chronic Plan Therapies recommending TCU. visitor services technician to assist with discharge planning/placement needs. Time Spent With Patient Total time spent: Total time spent caring for the patient today was 45 minutes. This includes time spent for the visit reviewing the chart, time spent during the visit, time spent after the visit and documentation and planning in coordination of care. Subjective Date Seen: 09/20/23 Interval history: Patient is seen this morning after follow-up evaluation with Neurology. Is pleased with the information he is received. Reports his left-sided weakness has slightly improved since yesterday. Has remained afebrile. Tolerating orals without nausea vomiting. No difficulty swallowing after being evaluated by speech therapy yesterday. MRI shows numerous small and tiny acute ischemic strokes in bilateral cerebral and cerebellar hemispheres, cardioembolic in etiology. Therapies recommending TCU. Exam Narrative: Exam Narrative: PHYSICAL EXAM General: Very pleasant, conversant, NAD HEENT: Normocephalic, atraumatic, sclera white, EOMI, oral mucosa moist Cardiovascular: RRR, S1S2. No pitting edema Pulmonary: CTA bilaterally without rhonchi, rales, expiratory wheezes. No dyspnea Neurological: Alert, answering questions appropriately, cranial nerves intact, left-sided weakness upper extremity/lower extremity Extremities: No gross joint deformity or swelling. AROMI. Neurovascularly intact Skin: Warm, dry. Const: Vital Signs, click to edit/add: Vital Signs - 24 hr 09/19/23 15:00 09/19/23 15:00 09/19/23 15:00 Temperature Pulse Rate 59 L Pulse Rate [Apical ] 56 L Respiratory Rate 18 18 Blood Pressure [Ri ght Arm] Pulse Oximetry 93 Oxygen Delivery Me thod Room Air 09/19/23 15:00 09/19/23 19:00 09/19/23 23:00 Temperature 98 F 98 F Pulse Rate 53 L Pulse Rate [Apical ] 63 70 Respiratory Rate 18 18 Blood Pressure [Ri ght Arm] 175/110 H 142/91 H Pulse Oximetry 95 93 Oxygen Delivery Me thod Room Air Room Air 09/19/23 23:00 09/19/23 23:00 09/19/23 23:00 Temperature 98.6 F Pulse Rate Pulse Rate [Apical ] 70 68 Respiratory Rate 18 18 18 Blood Pressure [Ri ght Arm] 139/94 H Pulse Oximetry 92 92 Oxygen Delivery Me thod Room Air CPAP 09/20/23 03:00 09/20/23 07:00 09/20/23 07:00 Temperature 98 F 97.9 F Pulse Rate Pulse Rate [Apical ] 58 L Respiratory Rate 18 18 Blood Pressure [Ri ght Arm] 143/90 H 154/88 H Pulse Oximetry 95 95 95 Oxygen Delivery Me thod CPAP Room Air Room Air 09/20/23 07:00 Temperature Pulse Rate 64 Pulse Rate [Apical ] Respiratory Rate Blood Pressure [Ri ght Arm] Pulse Oximetry Oxygen Delivery Me thod Labs Labs: Laboratory Results - last 24 hr 09/19/23 09/19/23 09/20/23 09:47 15:01 05:59 WBC 6.07 RBC 4.95 Hgb 14.5 Hct 45.4 MCV 92 MCH 29 MCHC 32 RDW Coeff of Maximus 14.7 Plt Count 170 Neut % (Auto) 64.4 Lymph % (Auto) 21.4 [place] % (Auto) 12.2 H Eos % (Auto) 1.6 Baso % (Auto) 0.2 Neut # (Auto) 3.91 Lymph # (Auto) 1.30 [place] # (Auto) 0.70 Eos # (Auto) 0.10 Baso # (Auto) 0.01 Abs Immat Gran (auto) 0.01 Imm/Tot Granulo (auto) 0.2 INR 1.72 H Sodium 139 Potassium 4.0 Chloride 109 Carbon Dioxide 23 Anion Gap 7 BUN 21 Creatinine 1.7 H Estimated Creat Clear 32.32 Estimated GFR 41 Glucose 94 Calcium 8.9 Triglycerides 71 Cholesterol 133 LDL Cholesterol, Calc 66 HDL Cholesterol 53 TSH 3.130 Lab Acknowledgement Test Added
[2023-09-20 15:00] VITALS: BP 152/88; PULSE 53; RESP 18; TEMP 36.8; O2SAT 95
--- NOTE | 2023-09-20 16:44 | PC.SOCIAL ---
Discharge planning: wire web worker met with pt, his , their son and daughter this afternoon to discuss discharge planning. PT/OT are recommending short-term rehab. Pt was made inpatient today. Spoke to family about the possibility of having to private pay. This would be a financial burden for them. wire web worker spoke to the doctor on duty and he is medically ready for discharge as early as tomorrow(Sunday). Pt lives in [place] and would like to stay close to home, if possible. Pt and family asked this worker to contact the following facilities listed below. 1. [facility] #[phone]- no male TCU bed openings until September 25. 2. [facility] #[phone]- has a male TCU opening for tomorrow(Sunday) possibly, if not Sunday. wire web worker secure emailed the referral to [facility] and they are reviewing. 3. [facility] #[phone]- left message. Social work to follow-up as needed.
[2023-09-20 19:00] VITALS: BP 138/96; PULSE 62; RESP 18; TEMP 36.8; O2SAT 92
--- NOTE | 2023-09-20 19:56 | PC.NURSE ---
End of Shift: The patient is talkative and cooperative... Alert and orientated. Slight L facial droop... L ream cutter is moderately weak.. lacks some coordination in L arm. L leg has mild weakness. VS on RA.. Hypertensive... but ok Per MD. Neuro follow up was completed this morning. The patients family visited. SANTA w/ gabriel and MELISSA to [facility]. This evening @ 1830 Esther CASAS found the patient on the floor on his knees/buttocks... the patient stated he was reaching for a piece of corn that fell on the floor. He stated he did not hit his head, no visible skin tears or bruises. VS were completed after and the patient was educated that he should have called the call light was in reach..... Safety report was filled out. Rhea VALLE BSN
[2023-09-20] MEDS: METOPROLOL SUCCINATE (XL) 50 MG TAB PO (20:53)
[2023-09-20] MEDS: APIXABAN 5 MG TABLET PO (20:53)
[2023-09-20] MEDS: EZETIMIBE 10 MG TABLET PO (20:53)
--- NOTE | 2023-09-20 22:41 | PC.NURSE ---
End of Shift ([id number]): Patient pleasant and cooperative. Afebrile. Denies pain. Up to bathroom with 1 assist, walker and gait belt. Tolerating regular diet with no nausea or difficulty swallowing.
[2023-09-21] VITALS (11 sets, daily range): BP systolic 129–164; BP diastolic 80–108; PULSE 47–67; RESP 16–18; TEMP 36.6–37; O2SAT 93–95
--- NOTE | 2023-09-21 05:44 | PC.NURSE ---
Pt pleasant and cooperative. VSS he has been up to the BR twice this shift with assist of 1,walker and gait belt. Minimal gaitt disturbance noted. Right arm with moderate wkness noted. Pt does tend to pick that arm up and move it as needed. He reports no numbness or tingling. No swallowing issues noted by this nurse.
[2023-09-21] MEDS: OMEPRAZOLE 20 MG CAPSULE DR 40 MG PO (06:05)
[2023-09-21 06:46] LABS: Chloride* 108 mmol/L (96-114); Potassium* 4.1 mmol/L (3.6-5.1); Sodium* 136 mmol/L (135-149)
[2023-09-21 06:48] LABS: Creatinine* 1.7 mg/dL (0.5-1.5); Est. Creatinine Clearance* 32.32; Estimated Glomerular Filt Rate 41 ml/min
[2023-09-21 06:49] LABS: Anion Gap 6 mEq/L (7-15); Blood Urea Nitrogen* 24 mg/dL (7-30); Carbon Dioxide* 22 mmol/L (20-32)
[2023-09-21 06:50] LABS: Glucose* 93 mg/dL (60-115)
[2023-09-21] MEDS: ASPIRIN 81 MG TABLET EC PO (08:21)
[2023-09-21] MEDS: TORSEMIDE 5 MG TABLET PO (08:22)
[2023-09-21] MEDS: ASCORBIC ACID 500 MG TABLET PO (08:22)
[2023-09-21] MEDS: APIXABAN 5 MG TABLET PO ×2 (08:22→20:19)
[2023-09-21] MEDS: levETIRAcetam 500 MG TABLET PO ×2 (08:22→20:20)
--- NOTE | 2023-09-21 10:33 | NUTR.NU ---
RDN with nutrition screen related to diet education. Patient admitted for possible CVA. He has a history of heart failure, CAD, and CVAs. Current diet is Heart Healthy (low fat/low cholesterol/2gm sodium). Height 5ft 6in; weight 202lb 14.4oz; BMI is 32.7 kg/m2. Meal intakes have been adequate of 75%+. RDN visited with patient whom agreed to receive diet education. He reports his son (designated caregiver) plows snow so he will not be available. Heart healthy diet education provided. Discussed following a Mediterranean-style diet using the plate method that includes ? plate non-starchy vegetables and fruit, ? plate whole grains/starch, ? plate healthy protein (fish, poultry, legumes, nuts/seeds), and healthy fats. Discussed limiting saturated fat and sodium intake. Handouts provided to support discussion. RDN contact information provided and encouraged patient to call with questions. RDN to follow up as needed.
--- NOTE | 2023-09-21 11:25 | PC.SOCIAL ---
Addendum entered by CHANTELLE Wolf 09/21/23 14:06: Discharge planning: switchboard wire worker helper heard back from [facility] and they are still reviewing pt's referral. They questioned the pt's insurance not being active and this worker received assistance from to get additional insurance information and sent the information to [facility]. switchboard wire worker helper has not heard anything from [facility]. Social work to follow-up as needed. Original Note: Discharge planning: switchboard wire worker helper heard back from [facility] in [place] and they do not have male TCU openings right now. [facility] is reviewing the pt's referral, but has not responded back yet with an answer. switchboard wire worker helper has emailed Mary at [facility] and left multiple messages with no response. switchboard wire worker helper reached out to [facility] and they do have male TCU beds available. switchboard wire worker helper sent them the pt's referral. Pt's family did state to this social work associate yesterday that if this worker needed to start looking further out for facilities to go ahead; therefore, the reasoning behind contacting [facility]. Social work to follow-up as needed.
--- NOTE | 2023-09-21 12:50 | P.IMPN_ITS ---
Progress Note: A&P Assessment and plan (1) Acute CVA (cerebrovascular accident): Problem details: - Appreciate Dr. George's recommendations. - symptoms are most concerning for stroke although patient does have a remote seizure history for which he has been on Keppra. I will admit Marino for ob servation and obtain an MRI, echocardiogram, continuous cardiac monitoring, neuro checks, seizure precautions, anticoagulation and anti-platelet therapy. Will allow for permissive hypertension. Per Dr. George's recommendations I will also give gentle IV fluids. I spoke with the patient's hydroelectric machinery mechanic, Dr. Gardner from [facility], regarding anticoagulation. We spoke about the patient's recent difficulty in keeping the INR within the goal range and the possibility of using apixaban. His hydroelectric machinery mechanic noted that due to coronary artery ectasias, PFO, and mural thrombus history they had been keeping him on warfarin, but with his more recent difficulty having a stable INR and if this is truly a stroke, then it would be beneficial for him to gone 1 of the newer anticoagulants, preferably apixaban. Dr. Gardner noted that the patient's most recent echocardiogram in May 2023 showed an EF of 56% and there were no wall motion abnormalities and no mural thrombus. 09/19: MRI showing right greater than left diffuse/innumerable foci of cerebellar and cerebral acute/subacute infarcts. Overall suggested of a central embolic phenomena. Cardioembolic in nature. Neurology follow-up recommending to stop Coumadin, start Eliquis 5 mg twice daily on 09/20. Okay to continue home metoprolol, not recommending starting any new antihypertensives currently. surgical services tech assisting with discharge planning/placement needs. As of 09/20 [facility] is assessing. Status: Acute (2) Paroxysmal atrial fibrillation: Problem details: 06/15/2023-saw [facility] cardiology. Started amiodarone, Holter monitor indicated that he was having asymptomatic ventricular ectopy including the interval increased burden in ventricular premature complexes as well as multiple runs of ventricular tachycardia. - good rate control, also see acute CVA above for anticoagulation discussion 09/19: DC Coumadin, start Eliquis 5 mg b.i.d. on 09/20 (consider adjusting dose for age and kidney function in 2 years). Continue amiodarone, metoprolol. Status: Chronic (3) Arrhythmia: Problem details: Chronic, followed by [facility] cardiovascular disease. Bradycardic earlier in the morning, amiodarone held. EKG showing bradycardia, PVCs, bigeminy (all noted in previous history). Heart rate improved. Resume amiodarone Continue telemetry Status: Acute (4) Obstructive sleep apnea treated with continuous positive airway pressure (CPAP): Problem details: CPAP Status: Chronic (5) Partial symptomatic epilepsy with complex partial seizures, intractable, without status epilepticus: Problem details: Continue Keppra, seizure precautions Status: Chronic (6) Hyperlipidemia: Problem details: Continue rosuvastatin Status: Chronic (7) CKD (chronic kidney disease): Problem details: Appears to be at baseline kidney function, 1.6-2.0. Per neurology recommendat ions, start Eliquis 5 mg b.i.d., may need to consider reducing to 2.5 mg twice daily in 2 years) Status: Chronic (8) Cerebrovascular disease: Problem details: Aspirin, statin Status: Chronic (9) Hypertension: Problem details: Allow for permissive hypertension for 72 hours. Continue metoprolol. Neurology recommending not to add any further antihypertensives. Status: Chronic Plan Awaiting placement Time Spent With Patient Total time spent: Total time spent caring for the patient today was 45 minutes. This includes time spent for the visit reviewing the chart, time spent during the visit, time spent after the visit and documentation and planning in coordination of care. Subjective Date Seen: 09/21/23 Interval history: Patient continues to feel well. Strength is improving on left side. Denies headache or dizziness. Denies chest pain, palpitations, or shortness of breath. Remains afebrile. Tolerating orals without nausea vomiting. Overnight, heart rate noted to dip into 40s and 50s. Asymptomatic with this. In reviewing his Epic records, Cardiovascular visit at [facility] 08/21/23: echocardiogram, MRI, ECG, Holter monitor reviewed. Patient has a history of PVCs, NSVT, ischemic cardiomyopathy, CAD status post 3 vessel CABG, atrial fibrillation. Holter monitor at that time showed heart rate varied from 45-92 bpm, bigeminy, junctional rhythms. Recommendations for management of his PVCs and NSVT included continuing on amiodarone, EP study, EP study with ablation. Heart rate later in the morning noted to again be 60-70s. Exam Narrative: Exam Narrative: PHYSICAL EXAM General: Very pleasant, conversant, NAD HEENT: Normocephalic, atraumatic, sclera white, EOMI, oral mucosa moist Cardiovascular: RRR, S1S2. No pitting edema Pulmonary: CTA bilaterally without rhonchi, rales, expiratory wheezes. No dyspnea Neurological: Alert, answering questions appropriately, cranial nerves intact, left-sided weakness upper extremity/lower extremity - improved from yesterday Extremities: No gross joint deformity or swelling. AROMI. Neurovascularly intact Skin: Warm, dry. Const: Vital Signs, click to edit/add: Vital Signs - 24 hr 09/20/23 15:00 09/20/23 15:00 09/20/23 15:00 Temperature 98.3 F Pulse Rate Pulse Rate [Apical ] 53 L 53 L Respiratory Rate 18 18 18 Blood Pressure [Ri ght Arm] 152/88 H Pulse Oximetry 95 95 Oxygen Delivery Me thod Room Air Room Air 09/20/23 19:00 09/21/23 03:00 09/21/23 03:00 Temperature 98.3 F Pulse Rate 50 L Pulse Rate [Apical ] 62 50 L Respiratory Rate 18 Blood Pressure [Ri ght Arm] 138/96 H Pulse Oximetry 92 Oxygen Delivery Me thod Room Air 09/21/23 03:00 09/21/23 04:33 09/21/23 07:00 Temperature 98.3 F 97.9 F Pulse Rate Pulse Rate [Apical ] 47 L 50 L Respiratory Rate 18 16 Blood Pressure [Ri ght Arm] 129/80 134/108 H Pulse Oximetry 95 95 93 Oxygen Delivery Me thod CPAP CPAP Room Air 09/21/23 07:00 09/21/23 07:00 09/21/23 10:38 Temperature 97.8 F Pulse Rate 48 L Pulse Rate [Apical ] 52 L Respiratory Rate 16 16 Blood Pressure [Ri ght Arm] 134/85 Pulse Oximetry 93 93 Oxygen Delivery Me thod Room Air Room Air Labs Labs: Laboratory Results - last 24 hr 09/21/23 05:49 Sodium 136 Potassium 4.1 Chloride 108 Carbon Dioxide 22 Anion Gap 6 L BUN 24 Creatinine 1.7 H Estimated Creat Clear 32.32 Estimated GFR 41 Glucose 93 Calcium 9.0
[2023-09-21] MEDS: ROSUVASTATIN CALCIUM 10 MG TABLET 5 MG PO (20:18)
[2023-09-21] MEDS: METOPROLOL SUCCINATE (XL) 25 MG TAB PO (20:19)
[2023-09-21] MEDS: EZETIMIBE 10 MG TABLET PO (20:19)
[2023-09-21] MEDS: SODIUM CHLORIDE 0.9 % (FLUSH) 10 ML SYRINGE 5 ML IVF (20:20)
[2023-09-21] MEDS: MELATONIN 3 MG TABLET PO (20:20)
[2023-09-22] VITALS (9 sets, daily range): BP systolic 129–168; BP diastolic 74–105; PULSE 49–71; RESP 16–24; TEMP 36.4–36.9; O2SAT 92–97
[2023-09-22] MEDS: LORazepam 0.5 MG TABLET PO (00:27)
[2023-09-22] MEDS: ACETAMINOPHEN 325 MG TABLET 650 MG PO (05:23)
[2023-09-22] MEDS: OMEPRAZOLE 20 MG CAPSULE DR 40 MG PO (05:24)
--- NOTE | 2023-09-22 05:35 | PC.NURSE ---
Pt was slightly confused and anxious this night. 0.5mg Ativan given and pt was then able to sleep. A1 to BR and voiding. VS unremarkable. Afebrile. Left side weakness minimal compared to right.
[2023-09-22 06:46] LABS: Chloride* 107 mmol/L (96-114); Potassium* 4.1 mmol/L (3.6-5.1); Sodium* 137 mmol/L (135-149)
[2023-09-22 06:49] LABS: Anion Gap 6 mEq/L (7-15); Blood Urea Nitrogen* 23 mg/dL (7-30); Calcium* 9.1 mg/dL (8.4-10.6); Carbon Dioxide* 24 mmol/L (20-32); Creatinine* 1.7 mg/dL (0.5-1.5); Est. Creatinine Clearance* 32.32; Estimated Glomerular Filt Rate 41 ml/min; Glucose* 95 mg/dL (60-115)
--- NOTE | 2023-09-22 08:31 | PM.IMPN1 ---
Progress Note: A&P Assessment and plan (1) Acute CVA (cerebrovascular accident): Problem details: - Appreciate Dr. George's recommendations. --obtain an MRI, echocardiogram, continuous cardiac monitoring, neuro checks, seizure precautions, anticoagulation and asp/statin, gentle IV fluids. -patient's assistant professor of communication, Dr. Gardner from [facility] agreed with warfarin --> apixaban change. 09/19: MRI showing right greater than left diffuse/innumerable foci of cerebellar and cerebral acute/subacute infarcts. Overall suggested of a central embolic phenomena. Cardioembolic in nature. Neurology follow-up recommending to stop Coumadin, start Eliquis 5 mg twice daily on 09/20. Okay to continue home metoprolol, not recommending starting any new antihypertensives currently. 09/18: Echo revealed a technically limited exam. Normal LV size. Mild increased wall thickness. EF 55-60%. Global systolic RV function is normal. No significant valve disease. nutritional services cook assisting with discharge planning/placement needs. As of 09/20 Johanna is assessing. Status: Acute (2) Paroxysmal atrial fibrillation: Problem details: 06/15/2023-saw [facility] cardiology. Started amiodarone, Holter monitor indicated that he was having asymptomatic ventricular ectopy including the interval increased burden in ventricular premature complexes as well as multiple runs of ventricular tachycardia. - good rate control, also see acute CVA above for anticoagulation discussion 09/19: DC Coumadin, start Eliquis 5 mg b.i.d. on 09/20 (consider adjusting dose for age and kidney function in 2 years). Continue amiodarone, metoprolol. 09/21: Adjusted amiodarone from 200-100 mg daily. Status: Chronic (3) Arrhythmia: Problem details: Chronic, followed by [facility] cardiovascular disease. Intermittent bradycardia, albeit asymptomatic has been as low as 49. Will just amiodarone down to 100 mg daily while continue metoprolol 25 mg at night. Continue telemetry Status: Acute (4) Obstructive sleep apnea treated with continuous positive airway pressure (CPAP): Problem details: CPAP Status: Chronic (5) Partial symptomatic epilepsy with complex partial seizures, intractable, without status epilepticus: Problem details: Continue Keppra, seizure precautions Status: Chronic (6) Hyperlipidemia: Problem details: Continue rosuvastatin Status: Chronic (7) CKD (chronic kidney disease): Problem details: Appears to be at baseline kidney function, 1.6-2.0. Per neurology recommendations, start Eliquis 5 mg b.i.d., may need to consider reducing to 2.5 mg twice daily in 2 years) Status: Chronic (8) Cerebrovascular disease: Problem details: Aspirin, statin Status: Chronic (9) Hypertension: Problem details: Allow for permissive hypertension for 72 hours. Continue metoprolol. Neurology recommending not to add any further antihypertensives. Status: Chronic Subjective Date Seen: 09/22/23 Interval history: Daily Progress Note - Hospital Medicine Day #: 4 CC: cardioembolic right sided cerebellar and cerebral acute/subacute infarcts OVERNIGHT UPDATES FROM STAFF & MED, LAB, IMAGING UPDATES BMP stable. reviewed. Heart Rates: 49-67. asymptomatic with bradycardia. Cardiovascular visit at [facility] 08/21/23: echocardiogram, MRI, ECG, Holter monitor reviewed. Patient has a history of PVCs, NSVT, ischemic cardiomyopathy, CAD status post 3 vessel CABG, atrial fibrillation. Holter monitor at that time showed heart rate varied from 45-92 bpm, bigeminy, junctional rhythms. Recommendations for management of his PVCs and NSVT included continuing on amiodarone, EP study, EP study with ablation. Assessment: 78-year-old man with acute ischemic strokes in bilateral cerebral and cerebellar hemispheres. He has numerous small and tiny infarcts. Etiology is clearly cardioembolic. He has atrial fibrillation and is on Coumadin, however his INR constantly fluctuates and it is 1.7 today. I recommend switching to a DOAC for stroke prevention. ? -MRI brain reviewed, numerous small new strokes -Stop Coumadin -Start Eliquis 5 mg twice daily tomorrow (he does have a creatinine >1.5, however his age is under 80 and his weight is over 60 kg. His dose could be reduced to 2.5 mg twice daily in 2 years) -If Eliquis is not covered by insurance, would alternatively use Xarelto -PT, OT, CARPENTER SUPER[employer]OR [employer] -Okay to continue home metoprolol, but I do not recommend starting any new antihypertensives at this time -Family updated at bedside -Discussed with bedside nurse Objective: alert. was out walking with PT when I arrive to see him. 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 He is understandable, coherent. Vitals: see above Lungs: Clear. Cardiac: S1S2. Neuro: did not see him walking but report is he's improving and I take him thru the left hand gross and fine motor - improved by report. Disposition/Potential discharge - Likely to return to previous living situation. Today I spent 50minutes seeing the patient, reviewing Expanse and EPIC notes/diagnostics, discussing the care plan with our care time that includes social work, PT/OT, pharmacy, RT, intermediate and documenting my impressions and plan in the medical record. Exam Const: Vital Signs, click to edit/add: Vital Signs - 24 hr 09/21/23 10:38 09/21/23 16:09 09/21/23 16:09 Temperature 97.8 F 97.8 F Pulse Rate Pulse Rate [Apical ] 52 L 62 Respiratory Rate 16 18 18 Blood Pressure [Ri ght Arm] 134/85 164/90 H Pulse Oximetry 93 95 95 Oxygen Delivery Me thod Room Air Room Air Room Air 09/21/23 16:10 09/21/23 19:19 09/21/23 19:45 Temperature 98.6 F Pulse Rate 61 65 Pulse Rate [Apical ] 67 Respiratory Rate 16 Blood Pressure [Ri ght Arm] 152/97 H Pulse Oximetry 94 Oxygen Delivery Me thod Room Air 09/21/23 21:53 09/21/23 22:28 09/21/23 22:29 Temperature 98.2 F Pulse Rate Pulse Rate [Apical ] 54 L 54 L Respiratory Rate 16 16 16 Blood Pressure [Ri ght Arm] 157/86 H Pulse Oximetry 94 94 Oxygen Delivery Me thod Room Air Room Air 09/22/23 02:57 09/22/23 05:23 09/22/23 08:24 Temperature 98.4 F 98.4 F Pulse Rate Pulse Rate [Apical ] 60 Respiratory Rate 18 Blood Pressure [Ri ght Arm] 139/90 H Pulse Oximetry 97 92 Oxygen Delivery Me thod Room Air Room Air 09/22/23 08:24 Temperature 98.2 F Pulse Rate Pulse Rate [Apical ] 55 L Respiratory Rate 16 Blood Pressure [Ri ght Arm] 143/74 H Pulse Oximetry 92 Oxygen Delivery Me thod Room Air Labs Labs: Laboratory Results - last 24 hr 09/22/23 05:38 Sodium 137 Potassium 4.1 Chloride 107 Carbon Dioxide 24 Anion Gap 6 L BUN 23 Creatinine 1.7 H Estimated Creat Clear 32.32 Estimated GFR 41 Glucose 95 Calcium 9.1
[2023-09-22] MEDS: ASPIRIN 81 MG TABLET EC PO (09:23)
[2023-09-22] MEDS: ASCORBIC ACID 500 MG TABLET PO (09:23)
[2023-09-22] MEDS: TORSEMIDE 5 MG TABLET PO (09:24)
[2023-09-22] MEDS: APIXABAN 5 MG TABLET PO ×2 (09:24→20:14)
[2023-09-22] MEDS: AMIODARONE 200 MG TABLET 100 MG PO (09:24)
[2023-09-22] MEDS: SODIUM CHLORIDE 0.9 % (FLUSH) 10 ML SYRINGE 5 ML IVF ×2 (09:24→20:15)
[2023-09-22] MEDS: levETIRAcetam 500 MG TABLET PO ×2 (09:24→20:15)
[2023-09-22] MEDS: METOPROLOL SUCCINATE (XL) 25 MG TAB PO (20:13)
[2023-09-22] MEDS: EZETIMIBE 10 MG TABLET PO (20:14)
[2023-09-23] VITALS (8 sets, daily range): BP systolic 119–185; BP diastolic 81–107; PULSE 54–66; RESP 16–18; TEMP 36.4–36.5; O2SAT 94–97
[2023-09-23] MEDS: OMEPRAZOLE 20 MG CAPSULE DR 40 MG PO (06:21)
[2023-09-23 06:42] LABS: Chloride* 106 mmol/L (96-114); Potassium* 4.4 mmol/L (3.6-5.1); Sodium* 138 mmol/L (135-149)
[2023-09-23 06:45] LABS: Anion Gap 6 mEq/L (7-15); Blood Urea Nitrogen* 22 mg/dL (7-30); Carbon Dioxide* 26 mmol/L (20-32); Creatinine* 1.7 mg/dL (0.5-1.5); Est. Creatinine Clearance* 32.32; Estimated Glomerular Filt Rate 41 ml/min
[2023-09-23 06:46] LABS: Calcium* 9.2 mg/dL (8.4-10.6); Glucose* 93 mg/dL (60-115)
[2023-09-23] MEDS: ASPIRIN 81 MG TABLET EC PO (08:58)
[2023-09-23] MEDS: ASCORBIC ACID 500 MG TABLET PO (08:59)
[2023-09-23] MEDS: TORSEMIDE 5 MG TABLET PO (08:59)
[2023-09-23] MEDS: levETIRAcetam 500 MG TABLET PO ×2 (08:59→20:53)
[2023-09-23] MEDS: AMIODARONE 200 MG TABLET 100 MG PO (08:59)
[2023-09-23] MEDS: SODIUM CHLORIDE 0.9 % (FLUSH) 10 ML SYRINGE 5 ML IVF (08:59)
[2023-09-23] MEDS: APIXABAN 5 MG TABLET PO ×2 (08:59→20:53)
--- NOTE | 2023-09-23 10:04 | PM.IMPN1 ---
Progress Note: A&P Assessment and plan (1) Acute CVA (cerebrovascular accident): Problem details: - Appreciate Dr. George's recommendations. --obtain an MRI, echocardiogram, continuous cardiac monitoring, neuro checks, seizure precautions, anticoagulation and asp/statin, gentle IV fluids. -patient's virology teacher, Dr. Gardner from [place] agreed with warfarin --> apixaban change. 09/19: MRI showing right greater than left diffuse/innumerable foci of cerebellar and cerebral acute/subacute infarcts. Overall suggested of a central embolic phenomena. Cardioembolic in nature. Neurology follow-up recommending to stop Coumadin, start Eliquis 5 mg twice daily on 09/20. Okay to continue home metoprolol, not recommending starting any new antihypertensives currently. 09/18: Echo revealed a technically limited exam. Normal LV size. Mild increased wall thickness. EF 55-60%. Global systolic RV function is normal. No significant valve disease. web services architect assisting with discharge planning/placement needs. As of 09/20 Johanna is assessing. Status: Acute (2) Paroxysmal atrial fibrillation: Problem details: 06/15/2023-saw [facility] cardiology. Started amiodarone, Holter monitor indicated that he was having asymptomatic ventricular ectopy including the interval increased burden in ventricular premature complexes as well as multiple runs of ventricular tachycardia. - good rate control, also see acute CVA above for anticoagulation discussion 09/19: DC Coumadin, start Eliquis 5 mg b.i.d. on 09/20 (consider adjusting dose for age and kidney function in 2 years). Continue amiodarone, metoprolol. 09/21: Adjusted amiodarone from 200-100 mg daily. 09/22: on amiodarone 100mg. bradycardia improved. Status: Chronic (3) Arrhythmia: Problem details: Chronic, followed by [facility] cardiovascular disease. Will just amiodarone down to 100 mg daily while continue metoprolol 25 mg at night. Continue telemetry Status: Acute (4) Obstructive sleep apnea treated with continuous positive airway pressure (CPAP): Problem details: CPAP Status: Chronic (5) Partial symptomatic epilepsy with complex partial seizures, intractable, without status epilepticus: Problem details: Continue Keppra, seizure precautions Status: Chronic (6) Hyperlipidemia: Problem details: Continue rosuvastatin Status: Chronic (7) CKD (chronic kidney disease): Problem details: Appears to be at baseline kidney function, 1.6-2.0. Per neurology recommendations, start Eliquis 5 mg b.i.d., may need to consider reducing to 2.5 mg twice daily in 2 years) Status: Chronic (8) Cerebrovascular disease: Problem details: Aspirin, statin Status: Chronic (9) Hypertension: Problem details: Allow for permissive hypertension for 72 hours. Continue metoprolol. Neurology recommending not to add any further antihypertensives. Status: Chronic Subjective Date Seen: 09/23/23 Interval history: Daily Progress Note - Hospital Medicine Day #: 5 CC: cardioembolic right sided cerebellar and cerebral acute/subacute infarcts OVERNIGHT UPDATES FROM STAFF & MED, LAB, IMAGING UPDATES Heart Rates improved 54-71. asymptomatic with bradycardia. we decreased amiodarone to 100mg 09/21 Reports a good night. Reports irritated bleeding external hemorrhoids; RN confirmed. On a new OAC warfarin --> eliquis in this hospitalization. I reviewed PT notes. LUE, LLE weakness but making progress. BMP Stable. Objective: up alert. eating breakfast in his chair. Vitals: see above Lungs: Clear. Cardiac: S1S2. No rectal exam. Neuro: stable exam. Disposition/Potential discharge - SNF for rehab recommended. Today I spent 50minutes seeing the patient, reviewing Expanse and EPIC notes/diagnostics, discussing the care plan with our care time that includes social work, PT/OT, pharmacy, RT, ch[facility] and documenting my impressions and plan in the medical record. Exam Const: Vital Signs, click to edit/add: Vital Signs - 24 hr 09/22/23 12:30 09/22/23 15:42 09/22/23 16:08 Temperature 97.7 F Pulse Rate 61 Pulse Rate [Apical ] 58 L Pulse Rate [Pulse Oximeter] Respiratory Rate 20 Blood Pressure [Ri ght Arm] 152/79 H Pulse Oximetry 95 92 Oxygen Delivery Me thod Room Air Room Air 09/22/23 16:08 09/22/23 20:08 09/22/23 20:08 Temperature 97.8 F 97.5 F L Pulse Rate 71 Pulse Rate [Apical ] 56 L Pulse Rate [Pulse Oximeter] 66 Respiratory Rate 18 20 Blood Pressure [Ri ght Arm] 130/79 129/99 H Pulse Oximetry 92 94 Oxygen Delivery Me thod Room Air Room Air 09/22/23 20:08 09/22/23 20:08 09/22/23 22:00 Temperature 97.7 F Pulse Rate Pulse Rate [Apical ] 66 Pulse Rate [Pulse Oximeter] 64 Respiratory Rate 20 24 [facility]105 H Pulse Oximetry 94 92 Oxygen Delivery Me thod Room Air Room Air 09/23/23 03:10 09/23/23 07:47 Temperature 97.5 F L Pulse Rate Pulse Rate [Apical ] Pulse Rate [Pulse Oximeter] 54 L 64 Respiratory Rate 16 16 Blood Pressure [facility] 158/94 H 151/107 H Pulse Oximetry 95 96 Oxygen Delivery Me thod CPAP Room Air Labs Labs: Laboratory Results - last 24 hr 09/23/23 05:40 Sodium 138 Potassium 4.4 Chloride 106 Carbon Dioxide 26 Anion Gap 6 L BUN 22 Creatinine 1.7 H Estimated Creat Clear 32.32 Estimated GFR 41 Glucose 93 Calcium 9.2
--- NOTE | 2023-09-23 18:07 | PC.NURSE ---
Pt alert and oriented. Pt pleasant and cooperative. VSS. IV removed per hospitalist. Pt had no complaints of pain. Pt SBA with walker and gait belt. Family at bedside most of shift. Pt awaiting placement for discharge.? ?
[2023-09-23] MEDS: EZETIMIBE 10 MG TABLET PO (20:53)
[2023-09-23] MEDS: METOPROLOL SUCCINATE (XL) 25 MG TAB PO (21:21)
[2023-09-24] VITALS (8 sets, daily range): BP systolic 128–172; BP diastolic 69–104; PULSE 32–93; RESP 16–20; TEMP 36.4–37.2; O2SAT 91–95
[2023-09-24] MEDS: OMEPRAZOLE 20 MG CAPSULE DR 40 MG PO (05:37)
--- NOTE | 2023-09-24 06:36 | PC.NURSE ---
Pt alert and oriented x3. Afebrile. Pt denies pain, chest pain, SOB, headache and N/V. Pt's Linda coma score 15/15, pt has strong photographic supervisor and strength on both sides. Pt is up SBA with walker and gait belt to bathroom. Pt had high blood pressures, updated Dr. Brower no new orders, continuing plan of care. Pt had large bowel movement with blood overnight. Blood is bright red and pt reports having kirk of hemorrhoids. Pt slept intermittently throughout night.
[2023-09-24] MEDS: AMIODARONE 200 MG TABLET 100 MG PO (09:36)
[2023-09-24] MEDS: TORSEMIDE 5 MG TABLET PO (09:37)
[2023-09-24] MEDS: levETIRAcetam 500 MG TABLET PO ×2 (09:37→20:44)
[2023-09-24] MEDS: APIXABAN 5 MG TABLET PO ×2 (09:37→20:45)
[2023-09-24] MEDS: ASPIRIN 81 MG TABLET EC PO (09:38)
[2023-09-24] MEDS: ASCORBIC ACID 500 MG TABLET PO (09:38)
--- NOTE | 2023-09-24 12:29 | PC.SOCIAL ---
Addendum entered by Kiesha Rahman [facility] 09/24/23 16:08: Discharge planning: Pre-admission screening was done and number was sent to Mary at [facility]. [id number]. Social work to follow-up as needed. Addendum entered by Kiesha Rahman [facility] 09/24/23 15:29: Discharge planning: Pt has been offically accepted to [facility] for tomorrow(Sunday), as prior authorization has gone through. Pt's family was informed and pt's daughter can transport him to [facility] tomorrow between 11am-12pm. Social work to follow-up as needed. Addendum entered by Kiesha Rahman [facility] 09/24/23 14:53: Discharge planning: Spoke to pt's daughter who can transport pt to [facility] tomorrow(Sunday) if prior authorization is approved by then. Social work to follow-up as needed. Addendum entered by Kiesha Rahman [facility] 09/24/23 14:06: Discharge planning: Pt has been accepted to [facility], they are currently running a prior authorization through pt's insurance. log chain worker updated the pt with this information. Social work to follow-up as needed. Original Note: Discharge planning: log chain worker checked in with [facility] today about the pt's referral and they are still reviewing the referral. log chain worker has been in contact with an Kiesha Johnson from the [place] office for [facility] and she will get back to this worker when they have an answer. log chain worker met with the pt, his and son and updated them. The family is still hoping for the pt to be able to go to [facility] for rehab. Social work to follow-up as needed.
--- NOTE | 2023-09-24 13:07 | PM.IMPN1 ---
Progress Note: A&P Assessment and plan (1) Acute CVA (cerebrovascular accident): Problem details: - Appreciate Dr. George's recommendations. --obtain an MRI, echocardiogram, continuous cardiac monitoring, neuro checks, seizure precautions, anticoagulation and asp/statin, gentle IV fluids. -patient's program trainer, Dr. Gardner from [place] agreed with warfarin --> apixaban change. 09/19: MRI showing right greater than left diffuse/innumerable foci of cerebellar and cerebral acute/subacute infarcts. Overall suggested of a central embolic phenomena. Cardioembolic in nature. Neurology follow-up recommending to stop Coumadin, start Eliquis 5 mg twice daily on 09/20. Okay to continue home metoprolol, not recommending starting any new antihypertensives currently. 09/18: Echo revealed a technically limited exam. Normal LV size. Mild increased wall thickness. EF 55-60%. Global systolic RV function is normal. No significant valve disease. clinical services consultant assisting with discharge planning/placement needs. As of 09/20 Johanna is assessing. Status: Acute (2) Paroxysmal atrial fibrillation: Problem details: 06/15/2023-saw [place] cardiology. Started amiodarone, Holter monitor indicated that he was having asymptomatic ventricular ectopy including the interval increased burden in ventricular premature complexes as well as multiple runs of ventricular tachycardia. - good rate control, also see acute CVA above for anticoagulation discussion 09/19: DC Coumadin, start Eliquis 5 mg b.i.d. on 09/20 (consider adjusting dose for age and kidney function in 2 years). Continue amiodarone, metoprolol. 09/21: Adjusted amiodarone from 200-100 mg daily. 09/22: on amiodarone 100mg. bradycardia improved. Status: Chronic (3) Arrhythmia: Problem details: Chronic, followed by [place] cardiovascular disease. Will just amiodarone down to 100 mg daily while continue metoprolol 25 mg at night. Continue telemetry Status: Acute (4) Obstructive sleep apnea treated with continuous positive airway pressure (CPAP): Problem details: CPAP Status: Chronic (5) Partial symptomatic epilepsy with complex partial seizures, intractable, without status epilepticus: Problem details: Continue Keppra, seizure precautions Status: Chronic (6) Hyperlipidemia: Problem details: Continue rosuvastatin Status: Chronic (7) CKD (chronic kidney disease): Problem details: Appears to be at baseline kidney function, 1.6-2.0. Per neurology recommendations, start Eliquis 5 mg b.i.d., may need to consider reducing to 2.5 mg twice daily in 2 years) Status: Chronic (8) Cerebrovascular disease: Problem details: Aspirin, statin Status: Chronic (9) Hypertension: Problem details: Allow for permissive hypertension for 72 hours. Continue metoprolol. Neurology recommending not to add any further antihypertensives. Status: Chronic (10) Hemorrhoids: Problem details: anusol suppository; topical hydrocortisone. soften stools with miralax. Status: Acute (11) Insomnia: Problem details: trazodone started 09/23 Status: Acute Subjective Date Seen: 09/24/23 Interval history: Daily Progress Note - Hospital Medicine Day #: 6 CC: cardioembolic right sided cerebellar and cerebral acute/subacute infarcts OVERNIGHT UPDATES FROM STAFF & MED, LAB, IMAGING UPDATES Patient didn't sleep well overnight. Otherwise feels like he is slowly improving. family bedside this morning. Heart Rates have been 60's (RN charted 30's but this is likely counting every other?). we decreased amiodarone to 100mg 09/21 no new labs today. Objective: up alert. eating breakfast in his chair. Vitals: see above Lungs: Clear. Cardiac: S1S2. Neuro: stable exam. Disposition/Potential discharge - SNF for rehab recommended. Today I spent 50minutes seeing the patient, reviewing Expanse and EPIC notes/diagnostics, discussing the care plan with our care time that includes social work, PT/OT, pharmacy, RT, prison and documenting my impressions and plan in the medical record. Exam Const: Vital Signs, click to edit/add: Vital Signs - 24 hr 09/23/23 14:35 09/23/23 14:40 09/23/23 19:55 Temperature 97.5 F L 97.6 F Pulse Rate [Apical ] 60 Pulse Rate [Pulse Oximeter] 60 60 Respiratory Rate 18 18 16 Blood Pressure [Le ft Arm] Blood Pressure [Ri ght Arm] 119/91 H 167/102 H Pulse Oximetry 94 94 94 Oxygen Delivery Me thod Room Air Room Air Room Air 09/23/23 21:25 09/23/23 21:25 09/23/23 21:25 Temperature 97.5 F L Pulse Rate [Apical ] Pulse Rate [Pulse Oximeter] 65 Respiratory Rate 16 16 16 Blood Pressure [Le ft Arm] Blood Pressure [Ri ght Arm] 185/81 H Pulse Oximetry 94 95 Oxygen Delivery Or thod Room Air Room Air 09/24/23 01:41 09/24/23 08:11 09/24/23 08:11 Temperature 97.7 F 98.4 F Pulse Rate [Apical ] Pulse Rate [Pulse Oximeter] 63 32 L 32 L Respiratory Rate 16 18 18 Blood Pressure [Le ft Arm] Blood Pressure [Ri ght Arm] 172/104 H 146/84 H Pulse Oximetry 94 91 Oxygen Delivery Or thod Room Air Room Air 09/24/23 08:11 09/24/23 11:18 Temperature 97.6 F Pulse Rate [Apical ] Pulse Rate [Pulse Oximeter] 34 L Respiratory Rate 18 20 Blood Pressure [Le ft Arm] 153/74 H Blood Pressure [Ri ght Arm] Pulse Oximetry 91 95 [facility]
--- NOTE | 2023-09-24 14:10 | PC.NURSE ---
End of Shift: Patient pleasant and cooperative. Patient vitally stable, lungs clear, BS WNL, NO IV. Patient denies pain, SBA/walker. Patient tolerating regular diet, urinating, no BM this shift. Tele reapplied reading NS with 1 degree HB. Patient has been up in chair this shift. Neuros intact.
[2023-09-24] MEDS: TRAZODONE HCL 50 MG TABLET PO (20:44)
[2023-09-24] MEDS: METOPROLOL SUCCINATE (XL) 25 MG TAB PO (20:44)
[2023-09-24] MEDS: MELATONIN 3 MG TABLET PO (20:45)
[2023-09-24] MEDS: EZETIMIBE 10 MG TABLET PO (20:45)
[2023-09-24] MEDS: ROSUVASTATIN CALCIUM 10 MG TABLET 5 MG PO (21:02)
[2023-09-25 02:55] VITALS: BP 117/85; PULSE 60; RESP 14; TEMP 36.7; O2SAT 92
[2023-09-25] MEDS: OMEPRAZOLE 20 MG CAPSULE DR 40 MG PO (06:12)
--- NOTE | 2023-09-25 07:32 | PC.NURSE ---
Pt alert and oriented x3. Afebrile. Pt denies pain, chest pain, SOB, and N/V. Pt reported feeling nervous about blood with stools and taking Apixaban, RN provided education on medication and updated MD. Pt is voiding, tolerating regular diet, and up SBA with walker to the bathroom. Pt slept throughout most of night. Night uneventful. ?
[2023-09-25 08:18] VITALS: BP 134/81; PULSE 42; RESP 18; TEMP 36.4; O2SAT 96
[2023-09-25] MEDS: AMIODARONE 200 MG TABLET 100 MG PO (09:22)
[2023-09-25] MEDS: TORSEMIDE 5 MG TABLET PO (09:22)
[2023-09-25] MEDS: levETIRAcetam 500 MG TABLET PO (09:23)
[2023-09-25] MEDS: APIXABAN 5 MG TABLET PO (09:23)
[2023-09-25] MEDS: ASCORBIC ACID 500 MG TABLET PO (09:23)
[2023-09-25] MEDS: ASPIRIN 81 MG TABLET EC PO (09:23)
--- NOTE | 2023-09-25 09:52 | PC.SOCIAL ---
Addendum entered by CHANTELLE Wolf 09/25/23 11:51: Discharge planning: channel worker secure emailed D/C orders for pt to Mary at [facility] this morning. Social work to follow-up as needed. Original Note: Discharge planning: channel worker provided pt with The Important Message from Medicare form today. Pt is all set to go to [facility] today between 11am-12pm. Pt's daughter will transport him. Social work to follow-up as needed.
[2023-09-25 10:14] VITALS: O2SAT 96
[2023-09-25 10:15] VITALS: PULSE 42
[2023-09-25 10:40] VITALS: PULSE 71
--- NOTE | 2023-09-25 11:57 | PC.NURSE ---
Discharge: Pleasant and cooperative, patient discharged to [facility] at approximately 11:00. Nurse to nurse report given to Kay at [facility], all questions were answered.
--- NOTE | 2023-09-25 16:02 | PM.DS1 ---
DS: Providers Provider Date Seen: 09/25/23 Date of admission: 09/20/23 15:29 Primary care physician: Yohana Watkins PA-C Admitting Clinician: Laila Villalta MD Consults: 09/19/23 13:04 Consult to Occupational Therapy [CONS] Routine Comment: Reason(s) for OT Consult:: Evaluate and Treat Any Restrictions?:: No Restrictions Consult to Physical Therapy [CONS] Routine Comment: Reason(s) for PT Consult:: Evaluate and Treat Any Restrictions?:: No Restrictions Consult to Tool Maker [CONS] Routine Comment: Reason for Consult:: Discharge Planning Needs 09/19/23 13:05 Consult to Speech Therapy [CONS] Routine Comment: Reason(s) for Speech Consult:: Speaking Difficulty 09/19/23 18:15 Consult to Physical Therapy [CONS] Routine Comment: Reason(s) for PT Consult:: Unstable Gait Any Restrictions?:: Unknown Attending Physician on discharge: Angela Mckenzie MD [facility] Date of Discharge: 09/25/23 DS: Diagnosis Discharge Diagnosis (1) Acute CVA (cerebrovascular accident): Status: Acute Problem details: -August 2023 -Appreciate Dr. George's recommendations. -obtain an MRI, echocardiogram, continuous cardiac monitoring, neuro checks, seizure precautions, anticoagulation and asp/statin, gentle IV fluids. -patient's developmental mathematics instructor, Dr. Gardner from [facility] agreed with warfarin --> apixaban change. 09/19: MRI showing right greater than left diffuse/innumerable foci of cerebellar and cerebral acute/subacute infarcts. Overall suggested of a central embolic phenomena. Cardioembolic in nature. Neurology follow-up recommending to stop Coumadin, start Eliquis 5 mg twice daily on 09/20. Okay to continue home metoprolol, not recommending starting any new antihypertensives currently. 09/18: Echo revealed a technically limited exam. Normal LV size. Mild increased wall thickness. EF 55-60%. Global systolic RV function is normal. No significant valve disease. 09/24: Discharge to rehab, [facility] in [place] (2) Paroxysmal atrial fibrillation: Status: Chronic Problem details: 06/15/2023-saw [facility] cardiology. Started amiodarone, Holter monitor indicated that he was having asymptomatic ventricular ectopy including the interval increased burden in ventricular premature complexes as well as multiple runs of ventricular tachycardia. - good rate control, also see acute CVA above for anticoagulation discussion 09/19: DC Coumadin, start Eliquis 5 mg b.i.d. on 09/20 (consider adjusting dose for age and kidney function in 2 years). Continue amiodarone, metoprolol. 09/21: Adjusted amiodarone from 200-100 mg daily. 09/22: on amiodarone 100mg. bradycardia improved. (3) Long-term (current) use of anticoagulants, INR goal 2.0-3.0: Status: Chronic Problem details: indication: a-fib, duration: lifelong Of previously had been on warfarin which was difficult for him to manage and target INR was difficult to maintain. As of this hospitalization warfarin was transition to oral apixaban. (4) Arrhythmia: Status: Acute Problem details: Chronic, followed by [facility] cardiovascular disease. Will just amiodarone down to 100 mg daily while continue metoprolol 25 mg at night. Continue losartan (5) Hemorrhoids: Status: Acute Problem details: anusol suppository; topical hydrocortisone. soften stools with miralax. Hold apixaban if rectal bleeding from hemorrhoids is brisk were continuous. (6) Partial symptomatic epilepsy with complex partial seizures, intractable, without status epilepticus: Status: Chronic Problem details: Continue Keppra, seizure precautions (7) Insomnia: Status: Acute Problem details: trazodone started 09/23 DS: Summary Hospital Course Hospital Course: FINAL DIAGNOSIS/FOLLOW UP ISSUES: 1. CVA, acute ischemic strokes in bilateral cerebral and cerebellar hemispheres. Embolic. Warfarin was switched to Eliquis. Sent to rehab on 09/25/2023 2. Paroxysmal AFib. Rate controlled on metoprolol. 3. External hemorrhoid, intermittent bleeding with oral anticoagulation. Consider general surgery referral BRIEF HOSPITAL COURSE: Patient was admitted for 7 days. Synopsis of acute inpatient issues are outlined above. Chronic medical conditions with notable findings outlined above. Our inpatient therapy team did fantastic work with checked. They worked with his left-sided weakness. He was walking the halls with assistance before discharge. His rate control AFib was not an issue. I did lower his dose of amiodarone because he was having some mild bradycardia that was asymptomatic. Continued his losartan at discharge. I decreased his dose of metoprolol at night from 50-25 mg. I switched his warfarin to Eliquis. DISCHARGE MEDICATIONS: See Reconciled list - SIGNIFICANT CHANGES: Amiodarone went from 200-100 mg Metoprolol XL went from 50-25 mg at bedtime Losartan was continued Warfarin went to Eliquis Specific instructions to the patient and follow-up are outlined below. REVIEW OF SYSTEMS No new chest pain or dyspnea Pain controlled No voiding difficulties Tolerating diet challenge PHYSICAL EXAM: CONSTITUTIONAL: Alert, cooperative. VITAL SIGNS: see record. HEENT: Normocephalic, atraumatic. PERRL, EOMI, conjunctivae pink, no scleral icterus. Ears and nose externally normal. Pharynx normal. NECK: No JVD. No carotid bruit, no thyromegaly, no adenopathy. CHEST: Clear to auscultation bilaterally. HEART: S1 and S2 normal. Edema ABDOMEN: Soft, nontender. Normal bowel sounds. MUSCULOSKELETAL: No gross joint deformity or swelling. NEURO: Cranial nerves intact. Grossly intact. Acute, subacute left-sided hemiparesis, mild. SKIN: No rashes, petechiae, concerning changes PSYCHIATRIC: Mood euthymic. DISPOSITION: Rehab, 3 Links Time spent on discharge 37 minutes. Status at Discharge Functional status at discharge: uses cane/walker Overall status at discharge: patient is progressing back to baseline Time Spent with Patient Time attestation: Total time spent providing and/or coordinating discharge services: Time spent: Greater than 30 minutes Exam Const: Vital Signs, click to edit/add: Vital Signs - 24 hr 09/24/23 19:30 09/24/23 21:00 09/24/23 21:00 Temperature 98.2 F Pulse Rate 62 Pulse Rate [Pulse Oximeter] 65 Respiratory Rate 18 18 Blood Pressure [Ri ght Arm] 155/100 H Pulse Oximetry 92 94 Oxygen Delivery Me thod Room Air Room Air 09/24/23 21:00 09/25/23 02:55 09/25/23 08:18 Temperature 98.0 F 98.0 F 97.6 F Pulse Rate Pulse Rate [Pulse Oximeter] 60 60 42 L Respiratory Rate 18 14 18 Blood Pressure [Ri ght Arm] 150/75 H 117/85 134/81 Pulse Oximetry 94 92 96 Oxygen Delivery Me thod Room Air Room Air Room Air 09/25/23 10:14 09/25/23 10:15 09/25/23 10:40 Temperature Pulse Rate 71 Pulse Rate [Pulse Oximeter] 42 L Respiratory Rate Blood Pressure [Ri ght Arm] Pulse Oximetry 96 Oxygen Delivery Me thod Room Air Discharge Plan Discharge Disposition: Xfer [facility] Date of Admission: 09/20/23 15:29 Attending Provider on Discharge: Angela Mckenzie Primary Care Provider: Yohana Watkins Discharge Medications: New trazodone 50 mg Tablet 50 - 100 mg PO HS Qty: 60 0RF hydrocortisone [Anusol-HC] 2.5 % Cream With Perineal Applicator 1 applic topical QID PRNQty: 60 0RF Eliquis 5 mg Tablet 5 mg PO BID Qty: 60 0RF metoprolol succinate 25 mg tablet extended release 24 hr 25 mg PO HS Qty: 30 2RF Continued levetiracetam [Keppra] 500 mg tablet 500 mg PO BID torsemide 5 mg tablet 5 mg PO DAILY ascorbic acid (vitamin C) 500 mg tablet 500 mg PO DAILY acetaminophen 325 mg tablet 650 mg PO Q6H PRN cholecalciferol (vitamin D3) 125 mcg (5,000 unit) capsule 125 mcg PO DAILY melatonin 5 mg capsule 5 mg PO HS PRN aspirin 81 mg tablet,delayed release (DR/EC) 81 mg PO DAILY rosuvastatin 5 mg tablet 5 mg PO MOWEFR@21 pantoprazole 40 mg tablet,delayed release (DR/EC) 40 mg PO DAILY Rx Instructions: for GERD ezetimibe 10 mg tablet 10 mg PO HS losartan 50 mg tablet 50 mg PO HS nitroglycerin 0.4 mg tablet, sublingual 0.4 mg sublingual Q5M PRN Rx Instructions: do not exceed 3 doses per episode Changed amiodarone 200 mg tablet 100 mg PO DAILY Qty: 15 0RF Discontinued metoprolol succinate 50 mg tablet extended release 24 hr 50 mg PO HS warfarin 1 mg tablet 1 mg PO HS Protocol: Dose Management Condition: Sunday Dose/Route: 1 mg Instruction: 1 x 1 mg tablet Condition: Sunday Dose/Route: 1 mg Instruction: 1 x 1 mg tablet Condition: Sunday Dose/Route: 1 mg Instruction: 1 x 1 mg tablet Condition: Sunday Dose/Route: 1 mg Instruction: 1 x 1 mg tablet Condition: Dose/Route: 1 mg Instruction: 1 x 1 mg tablet Condition: Sunday Dose/Route: 1 mg Instruction: 1 x 1 mg tablet Condition: Sunday Dose/Route: 1 mg Instruction: 1 x 1 mg tablet Protocol Text: Adjustment Start Date: 09/06/23 INR Value: 2.0 INR Date: 09/06/23 Recheck Date: 09/20/23 Discharge Orders: Discharge Order (Routine); Ordered 09/25/23 Ordered By: Angela Mckenzie Additional Instructions: Patient has had a stroke; we feel it is from his AFIB and his warfarin was not keeping his blood thin enough. We switched him to apixaban from warfarin. He has hemorrhoids that are bleeding some and this maybe slightly worse with the anticogulant. Please watch the blood loss from these and consider having these addressed if they are more than intermittent. Activity Level: Activity as Tolerated Discharge Diet: Regular Follow Up Appointments: [facility] [place] [Outside] (Patient is being discharged to [facility]) Yohana Watkins PA-C [Primary Care Provider] - Forms: [facility] Info Instructions Admit to: SNF Discharge Potential: Good Length of Stay: <30 days Can use facility standing orders?: Yes Code Status: Full Code Rehab Potential: Good Therapy: Physical Therapy, Occupational Therapy and Speech Therapy Therapy Orders: Evaluate and Treat Oxygen: No Urinary Catheter: No INR Goal: on eliquis (apixaban) thus no INR needed Orders are good >30 days: Yes
== END 2023-09-25 11:00 | DRG 65 ==
LOC: ED 09:46 → MEDSURG 11:16
PROVIDERS: Physician Assistant; Admitting Provider Family Medicine; Emergency Provider Family Medicine; PCP Physician Assistant Medical; Visit Provider Family Medicine
DX: I63.443 Cerebral infarction due to embolism of bilateral cerebellar arteries (principal); G40.219 Localization-related (focal) (partial) symptomatic epilepsy and epileptic syndromes with complex partial seizures, intractable, without status epilepticus; I13.0 Hypertensive heart and chronic kidney disease with heart failure and stage 1 through stage 4 chronic kidney disease, or unspecified chronic kidney disease; I48.20 Chronic atrial fibrillation, unspecified; Z87.891 Personal history of nicotine dependence; Z79.01 Long term (current) use of anticoagulants; I48.0 Paroxysmal atrial fibrillation; E78.5 Hyperlipidemia, unspecified; K21.9 Gastro-esophageal reflux disease without esophagitis; I49.3 Ventricular premature depolarization; J44.9 Chronic obstructive pulmonary disease, unspecified; N18.30 Chronic kidney disease, stage 3 unspecified; I50.9 Heart failure, unspecified; I25.10 Atherosclerotic heart disease of native coronary artery without angina pectoris; Z86.73 Personal history of transient ischemic attack (TIA), and cerebral infarction without residual deficits; Z95.1 Presence of aortocoronary bypass graft; G47.33 Obstructive sleep apnea (adult) (pediatric); Z99.89 Dependence on other enabling machines and devices; R29.810 Facial weakness; G83.24 Monoplegia of upper limb affecting left nondominant side; R29.707 NIHSS score 7; I49.8 Other specified cardiac arrhythmias; K64.9 Unspecified hemorrhoids; G47.00 Insomnia, unspecified
CPT/HCPCS: 36415; 70450; 70496; 70498; 70551; 80048; 80061; 80076; 81001; 83880; 84443; 84484; 85025; 85610; 85730; 86140; 87086; 87631; 92523; 92610; 93005; 93308; 93321; 93325; 94761; 97110; 97112; 97116; 97161; 97165; 97530; 97535; 99233; 99285; 99291; G0378; G0427; A9270; J7030; Q9957; Q9967

== ENCOUNTER 2023-12-10 11:06 | Emergency (ER) | payer OTHER, SELFPAY ==
[2023-12-10 11:18] VITALS: BP 166/102; PULSE 54; RESP 16; TEMP 36.9; O2SAT 97; BMI 29.1
--- NOTE | 2023-12-10 11:24 | ED.GENADULT ---
HPI - General Adult General Chief complaint: Eye Problems Stated complaint: something blocking vision in right eye Time Seen by Provider: 12/10/23 11:10 History of Present Illness HPI narrative: patient woke up this am around 0830 noticed a black spot in the lower vision of the left eye that looks like a cloudy and has edges. hx of 40 years ago blood clot in the eye. Other hx is September 19, 2023 left sided stroke from sounds like A fib. is on [place]. 78-year-old man presenting to the emergency department with concern of loss of vision. Does have a history of CVA and atrial fibrillation. Continues to take Eliquis twice daily. Further questioning reveals that around 7:00 a.m. 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 This was noting that his lower right vision was darkened. He woke up around 830 then and this persisted. It looks like a darker [place] clearly defined. He describes later to me that he closes his eyes and it looks brighter white in that same area. History of CVA with a history of atrial fibrillation is noted. No headache and no other visual symptoms. No weakness or loss of sensation otherwise. No sense of palpitations or nausea. Blood pressure mid we is little bit elevated as I inquire when he says that he suspects that this is related to nerves. Related Data Home Medications ?Medication ?Instructions ?Recorded ?Confirmed nitroglycerin 0.4 mg sublingual 0.4 mg sublingual Q5M PRN 02/02/22 12/10/23 tablet levetiracetam 500 mg tablet 500 mg PO BID 03/13/22 12/10/23 (Keppra) torsemide 5 mg tablet 5 mg PO DAILY 07/07/22 12/10/23 ascorbic acid (vitamin C) 500 mg 500 mg PO DAILY 10/14/22 12/10/23 tablet acetaminophen 325 mg tablet 650 mg PO Q6H PRN 09/19/23 12/10/23 aspirin 81 mg tablet,delayed 81 mg PO DAILY 09/19/23 12/10/23 release cholecalciferol (vitamin D3) 125 125 mcg PO DAILY 09/19/23 12/10/23 mcg (5,000 unit) capsule ezetimibe 10 mg tablet 10 mg PO HS 09/19/23 12/10/23 losartan 50 mg tablet 50 mg PO HS 09/19/23 12/10/23 rosuvastatin 5 mg tablet 5 mg PO MOWEFR@21 09/19/23 12/10/23 metoprolol succinate 50 mg 25 mg PO QDAY 11/14/23 12/10/23 tablet,extended release 24 hr Previous Rx's ?Medication ?Instructions ?Recorded amiodarone 200 mg tablet 100 mg (1/2 x 200 mg) PO DAILY #15 09/25/23 tabs meclizine 25 mg tablet 25 mg PO TID PRN dizziness #90 tabs 10/10/23 apixaban 5 mg tablet (Eliquis) 5 mg PO BID #180 tabs 11/07/23 trazodone 50 mg tablet 50 mg PO HS #90 tabs 11/07/23 pantoprazole 40 mg tablet,delayed 40 mg PO DAILY #90 tabs 11/23/23 release Allergies Allergy/AdvReac Type Severity Reaction Status Date / Time amlodipine Allergy Severe hives/rash Verified 12/10/23 11:22 iothalamate Allergy Severe had to do Uncoded 11/07/23 14:49 chest compressions and shock heart with angio dye statins Allergy Intermediate muscle Uncoded 11/07/23 14:49 aches HMG-CoA reductase inhibitor AdvReac Intermediate muscle Uncoded 11/07/23 14:49 aches Review of Systems Status of ROS: Reports: 6 or more systems reviewed and unremarkable except as noted in History and below [facility] Medical History History of CVA (cerebrovascular accident) (~08/2023) ?Z86.73 - Personal history of transient ischemic attack (TIA), and cerebral infarction without residual deficits (ICD-10) Ulnar neuropathy ?G56.20 - Lesion of ulnar nerve, unspecified upper limb (ICD-10) Arrhythmia ?I49.9 - Cardiac arrhythmia, unspecified (ICD-10) Former smoker ?Z87.891 - Personal history of nicotine dependence (ICD-10) Hyperlipidemia ?E78.5 - Hyperlipidemia, unspecified (ICD-10) 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 - Ventricular premature depolarization (ICD-10) Coronary artery aneurysm ?I25.41 - Coronary artery aneurysm (ICD-10) Cerebrovascular disease ?I67.9 - Cerebrovascular disease, unspecified (ICD-10) Ribs, multiple fractures ?S22.49XA - Multiple fractures of ribs, unspecified side, initial encounter for closed fracture (ICD-10) BPPV (benign paroxysmal positional vertigo) ?H81.10 - Benign paroxysmal vertigo, unspecified ear (ICD-10) Surgical History History of three vessel coronary artery bypass ?Z95.1 - Presence of aortocoronary bypass graft (ICD-10) History of surgery on right wrist ?Z98.890 - Other specified postprocedural states (ICD-10) History of carpal tunnel surgery of left wrist ?Z98.890 - Other specified postprocedural states (ICD-10) History of ankle surgery ?Z98.890 - Other specified postprocedural states (ICD-10) Family History Mother Asthma Maternal Grandmother Diabetes Family/Other Cardiomyopathy Father High blood pressure Social History Narrative: . is undergoing treatment for Multiple Myeloma and has some cognitive impairment. Son, Jelani, lives with them and sets up meds for patient's . Son works during the day and stops by the house or calls 1-5 times during the work day to check on them. Does not use illicit drugs Former smoker- quit in 2011 Occasional alcohol consumption What is your current living situation?: I presently have a place to live Problems where you live: no known problems Problems where you live details: N/A In the past 12 months, utilities in danger of being shut off: no In past 12 months, lack of transportation kept you from medical appts, meetings, work, or getting things needed for daily living: no In the past 12 mos, have been you worried that your food would run out before you had money to buy more?: never true In the past 12 mos, the food you bought just didn't last and you didn't have money to buy more?: never true Smoking Status: Former smoker Do you use any of these nicotine containing products: None Second hand tobacco smoke exposure: No How often do you have a drink containing alcohol: monthly or less How many standard drinks containing alcohol do you have on a typical day: 1 or 2 How often do you have six or more drinks on one occasion: Never AUDIT-C Alcohol total score: 1 Non-prescribed substance use: denies use How often does anyone, including family, friends and others, physically hurt you: never How often does anyone, including family, friends and others, insult or talk down to you: never How often does anyone, including family, friends and others, threaten you with harm: never How often does anyone, including family, friends and others, scream or curse at you: never Little interest or pleasure in doing things: more than half the days Feeling down, depressed, or hopeless: not at all service: No Exam Narrative: Exam Narrative: Pleasant. Good sense of humor. It is warm and dry. Head is atraumatic. Neck is supple with strong carotid of stroke. He is breathing easily. Pupils are right and 2 mm and appropriately reactive. They are equal. Funduscopic exam is quite difficult but looks similar side to side. Do not appreciate clear vascular anomaly. He is clear in anterior chambers bilaterally. Moving all extremities without difficulty with good strength and without sensory losses. Cranial nerves 2-12 are in intact otherwise. He has full visual galo to confrontation bilaterally. Above this graying of lower right side vision he reports normal vision, normal acuity otherwise. Const: Vital Signs, click to edit/add: Vital Signs - 24 hr 12/10/23 11:18 Temperature 98.5 F Pulse Rate [Pulse Oximeter] 54 L Respiratory Rate 16 Blood Pressure [Ri ght Upper Arm] 166/102 H Pulse Oximetry 97 Oxygen Delivery Me thod Room Air Documenting provider has reviewed patient's vital signs: yes Course Vital Signs Vital signs: Initial Vital Signs Temperature 98.5 F 12/10/23 11:18 Temperature Source Temporal Artery Scan 12/10/23 11:18 Pulse Rate 54 L 12/10/23 11:18 Respiratory Rate 16 12/10/23 11:18 Blood Pressure 166/102 H 12/10/23 11:18 Blood Pressure Mean 123 H 12/10/23 11:18 Blood Pressure Position Sitting 12/10/23 11:18 Pulse Oximetry 97 12/10/23 11:18 Oxygen Delivery Method Room Air 12/10/23 11:18 Vital Signs Temperature 98.5 F 12/10/23 11:18 Pulse Rate 54 L 12/10/23 11:18 Respiratory Rate 16 12/10/23 11:18 Blood Pressure 166/102 H 12/10/23 11:18 Pulse Oximetry 97 12/10/23 11:18 Oxygen Delivery Method Room Air 12/10/23 11:18 Temperature 98.5 F 12/10/23 11:18 Pulse Rate 54 L 12/10/23 11:18 Respiratory Rate 16 12/10/23 11:18 Blood Pressure 166/102 H 12/10/23 11:18 Pulse Oximetry 97 12/10/23 11:18 Oxygen Delivery Method Room Air 12/10/23 11:18 Medical Decision Making MDM Narrative Medical decision making narrative: This appears to me to be more of a retinal issue/detachment. Possible hemorrhage considering anticoagulation status. Regardless this is something that he woke with going on for at least 5 hours the time this interview. He is maintained on anticoagulation and has no major deficits. Not sure what more intervention could be indicated here. Did discuss these findings with his supervisor bindery/cable tv installer in [place] who are able to see him this early afternoon. Would seem prudent particularly because he is anticoagulated to go ahead and do a basic head CT looking for any evidence of bleed. If this eye exam is fully normal, would consider return to the emergency department for MRI imaging for other occlusion/CVA at that point. Mr. Lehman is in agreement with this plan. Head CT reviewed by me looks to show chronic changes including encephalomalacia Radiology over-read just returned noted as below Study:?CT-Head WITHOUT-12/10/2023 12:28:02 PM Ordering Physician:Bisi Olson Final Report: INDICATION: CLOUDED/OBSCURED RT EYE LOWER VISUAL FIELD TECHNIQUE: CT of the head without contrast. Coronal and sagittal reformats. Bone and soft tissue algorithms. COMPARISON: MRI 09/19/2023, CT 09/19/2023, 11/08/2018 FINDINGS: No acute intracranial hemorrhage or extra-axial collection. No evidence of acute cortical infarction. 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 Chronic encephalomalacia in the right anterior frontal lobe. Chronic lacunar infarct in the head of the left caudate nucleus. Chronic infarct in the left superior cerebellum. Partially empty sella. No mass effect or midline shift. Moderate generalized cerebral/cerebellar parenchymal volume loss. Moderate regions of decreased attenuation within the periventricular and subcortical white matter of both cerebral hemispheres most likely reflects chronic microvascular ischemic disease and age related change in this patient. Vascular calcifications within the carotid siphons. Orbital contents are normal. No calvarial fractures. No lytic or sclerotic osseous lesions within the calvarium or skull base. Scalp and other imaged soft tissue structures are normal. Mastoid air cells are clear. Complete opacification of the left maxillary sinus containing hyperdense material likely inspissated secretions. IMPRESSION: 1. No evidence of acute intracranial abnormality. 2. 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 3. Chronic encephalomalacia in the right anterior frontal lobe. Chronic lacunar infarct in the head of the left caudate nucleus. Chronic infarct in the left superior cerebellum. 4. Moderate parenchymal volume loss and chronic small vessel disease. 5. Complete opacification of the left maxillary sinus containing hyperdense material likely inspissated secretions. Absent further symptoms, plan as above to receive eye exam and return if recommended. I would anticipate necessity of basic brain MRI in this case given subtlety of symptoms. On reassessment he does think that perhaps this grayed area has reduced a little. Discharge Plan Discharge Clinical Impression: Alteration in vision, Hypertension Patient Disposition: Home w/ Parent or Adult Additional Instructions: Please head on up to your eye clinic in [place]. Your eye doctor is expecting you by 230pm for an appointment. If they do not think that there is an eye issue here, you can return to this facility and we will investigate further. Our phone number here again is [phone] or [phone] Otherwise would check your blood pressure every other day after a period of rest and follow-up with your primary care provider if your pressures remain elevated. Prescriptions: No Action levetiracetam [Keppra] 500 mg tablet 500 mg PO BID trazodone 50 mg tablet 50 mg PO HS Qty: 90 1RF Rx Instructions: one tablet once daily for sleep aide Eliquis 5 mg tablet 5 mg PO BID Qty: 180 1RF Rx Instructions: one tablet twice daily metoprolol succinate 50 mg tablet extended release 24 hr 25 mg PO QDAY torsemide 5 mg tablet 5 mg PO DAILY ascorbic acid (vitamin C) 500 mg tablet 500 mg PO DAILY meclizine 25 mg tablet 25 mg PO TID PRN (Reason: dizziness) Qty: 90 0RF Rx Instructions: one tablet three times daily for vertigo acetaminophen 325 mg tablet 650 mg PO Q6H PRN cholecalciferol (vitamin D3) 125 mcg (5,000 unit) capsule 125 mcg PO DAILY aspirin 81 mg tablet,delayed release (DR/EC) 81 mg PO DAILY rosuvastatin 5 mg tablet 5 mg PO MOWEFR@21 ezetimibe 10 mg tablet 10 mg PO HS losartan 50 mg tablet 50 mg PO HS amiodarone 200 mg tablet 100 mg PO DAILY Qty: 15 0RF nitroglycerin 0.4 mg tablet, sublingual 0.4 mg sublingual Q5M PRN Rx Instructions: do not exceed 3 doses per episode pantoprazole 40 mg tablet,delayed release (DR/EC) 40 mg PO DAILY Qty: 90 2RF Rx Instructions: for GERD Follow Up/Referrals: Yohana Watkins PA-C [Primary Care Provider] - Stand Alone Forms: [facility] Info Instructions
--- NOTE | 2023-12-10 11:46 | CRLHL7_ITS ---
For Patients: As a result of the Century Cures Act, medical imaging exams and procedure reports are released immediately into your electronic medical record. You may view this report before your referring provider. If you have questions, please contact your health care provider. INDICATION: CLOUDED/OBSCURED RT EYE LOWER VISUAL FIELD TECHNIQUE: CT of the head without contrast. Coronal and sagittal reformats. Bone and soft tissue algorithms. COMPARISON: MRI 09/19/2023, CT 09/19/2023, 11/08/2018 FINDINGS: No acute intracranial hemorrhage or extra-axial collection. No evidence of acute cortical infarction. 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 Chronic encephalomalacia in the right anterior frontal lobe. Chronic lacunar infarct in the head of the left caudate nucleus. Chronic infarct in the left superior cerebellum. Partially empty sella. No mass effect or midline shift. Moderate generalized cerebral/cerebellar parenchymal volume loss. Moderate regions of decreased attenuation within the periventricular and subcortical white matter of both cerebral hemispheres most likely reflects chronic microvascular ischemic disease and age related change in this patient. Vascular calcifications within the carotid siphons. Orbital contents are normal. No calvarial fractures. No lytic or sclerotic osseous lesions within the calvarium or skull base. Scalp and other imaged soft tissue structures are normal. Mastoid air cells are clear. Complete opacification of the left maxillary sinus containing hyperdense material likely inspissated secretions. IMPRESSION: 1. No evidence of acute intracranial abnormality. 2. 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 3. Chronic encephalomalacia in the right anterior frontal lobe. Chronic lacunar infarct in the head of the left caudate nucleus. Chronic infarct in the left superior cerebellum. 4. Moderate parenchymal volume loss and chronic small vessel disease. 5. Complete opacification of the left maxillary sinus containing hyperdense material likely inspissated secretions. Please note that all CT scans at this facility use dose modulation, iterative reconstruction, and/or weight-based dosing when appropriate to reduce radiation dose to as low as reasonably achievable. Dictated by Wesley Lema MD @ 12/10/2023 1:02:51 PM (Electronically Signed)
== END 2023-12-10 13:27 | disposition home or self-care (01) ==
PROVIDERS: Emergency Provider Family Medicine; PCP Physician Assistant Medical
DX: H53.9 Unspecified visual disturbance (principal); I10 Essential (primary) hypertension
CPT/HCPCS: 70450; 99284

== ENCOUNTER 2023-12-10 16:27 | Inpatient (IN) | payer OTHER, SELFPAY ==
[2023-12-10] VITALS (14 sets, daily range): BP systolic 137–179; BP diastolic 80–100; PULSE 45–61; RESP 16–20; TEMP 36.4–36.9; O2SAT 88–98; BMI 31.3; BMI 30.9
--- NOTE | 2023-12-10 17:01 | CRLHL7_ITS ---
For Patients: As a result of the Century Cures Act, medical imaging exams and procedure reports are released immediately into your electronic medical record. You may view this report before your referring provider. If you have questions, please contact your health care provider. INDICATION: Neurologic deficit. TECHNIQUE: Brain MRI without contrast. COMPARISON: Head CT from 12/10/2023. brain MRI from 09/19/2023. FINDINGS: Punctate focus of diffusion restriction within the right periatrial white matter, likely an acute or subacute infarct. Recent, likely subacute infarct is also present within the left periatrial white matter. Right anterior frontal encephalomalacia with accompanying hemosiderin staining. Right posterior temporal microhemorrhage. Multiple more prominent microhemorrhages within the brainstem and left cerebellar hemisphere. Small chronic cortical infarct right posterior superior temporal lobe. Chronic lacunar infarcts within the basal ganglia, right thalamus and deep cerebral white matter. Multiple chronic infarcts within the bilateral cerebellar hemispheres. Patchy and confluent T2/FLAIR hyperintensity within the supratentorial white matter and brainstem, typical for chronic microvascular ischemic change. No mass effect or herniation. No hydrocephalus or extra-axial collections. The pituitary gland, parasellar structures and optic chiasm are normal. All the major intracranial vascular structures demonstrate normal flow-related signal. The orbital contents are normal. No calvarial or skull base marrow replacing process. Complete opacification of the left maxillary sinus with a polyp or retention cyst. L no extracranial soft tissue findings. IMPRESSION: 1. Punctate recent infarcts within the right and left periatrial white matter. Given the location/distribution, embolic etiology is likely, as before. 2. Numerous chronic infarcts within the supratentorial/infratentorial brain as detailed above. Also present on prior MRI, with many on that exam seen as acute to subacute. 3. Right anterior frontal encephalomalacia and hemosiderin staining, compatible with chronic hemorrhage or hemorrhagic infarct. A few microhemorrhages within the supratentorial brain as well as more prominent microhemorrhages within the brainstem and left cerebellar hemisphere. These findings are all unchanged. 4. Moderate chronic microvascular ischemic/senescent changes. Dictated by Aaron Garcia MD @ 12/10/2023 6:59:54 PM (Electronically Signed)
--- NOTE | 2023-12-10 18:01 | ED_ITS ---
HPI - General Adult General Chief complaint: Eye Problems Stated complaint: Stroke eval, blood clot in eye Time Seen by Provider: 12/10/23 16:40 Source: patient and family Mode of arrival: ambulatory Limitations: no limitations History of Present Illness HPI narrative: 78-year-old male returning to the ER today for follow-up imaging. Patient was seen earlier today with acute changes in his vision. He describes it as a black cloud on the lower visual field of the left eye is. Patient does have a history of strokes and is on Eliquis. Her his son who helps to take care of him, he states that he was a little out of it this morning. He was slower to respond and was not quite like his usual self. He states that all of that has since resolved and he is back to his usual self. Patient states that the visual field distortion was still present. He has not since developed headache, nausea or vomiting, no dizziness or vertigo. A head CT was done this morning, did not show any acute findings. He then proceeded to the eye doctor who noted a Hollenhorst plaque - this was explained to the patient as a stroke like blockage causing visual changes. He was then directed back here for an MRI. Related Data Home Medications ?Medication ?Instructions ?Recorded ?Confirmed nitroglycerin 0.4 mg sublingual 0.4 mg sublingual Q5M PRN 02/02/22 12/10/23 tablet levetiracetam 500 mg tablet 500 mg PO BID 03/13/22 12/10/23 (Keppra) torsemide 5 mg tablet 5 mg PO DAILY 07/07/22 12/10/23 ascorbic acid (vitamin C) 500 mg 500 mg PO DAILY 10/14/22 12/10/23 tablet acetaminophen 325 mg tablet 650 mg PO Q6H PRN 09/19/23 12/10/23 aspirin 81 mg tablet,delayed 81 mg PO DAILY 09/19/23 12/10/23 release cholecalciferol (vitamin D3) 125 125 mcg PO DAILY 09/19/23 12/10/23 mcg (5,000 unit) capsule ezetimibe 10 mg tablet 10 mg PO HS 09/19/23 12/10/23 losartan 50 mg tablet 50 mg PO HS 09/19/23 12/10/23 rosuvastatin 5 mg tablet 5 mg PO MOWEFR@09/19/23 12/10/23 metoprolol succinate 50 mg 25 mg PO QDAY 11/14/23 12/10/23 tablet,extended release 24 hr Previous Rx's ?Medication ?Instructions ?Recorded amiodarone 200 mg tablet 100 mg (1/2 x 200 mg) PO DAILY #15 09/25/23 tabs meclizine 25 mg tablet 25 mg PO TID PRN dizziness #90 tabs 10/10/23 apixaban 5 mg tablet (Eliquis) 5 mg PO BID #180 tabs 11/07/23 trazodone 50 mg tablet 50 mg PO HS #90 tabs 11/07/23 pantoprazole 40 mg tablet,delayed 40 mg PO DAILY #90 tabs 11/23/23 release Allergies Allergy/AdvReac Type Severity Reaction Status Date / Time amlodipine Allergy Severe hives/rash Verified 12/10/23 11:22 [id number] Reductase AdvReac Intermediate myalgia Verified 12/10/23 16:42 Inhibitor iothalamate Allergy Severe had to do Uncoded 12/10/23 16:42 chest compressions and shock heart with angio dye Review of Systems Status of ROS: Reports: 10 or more systems reviewed and unremarkable except as noted in History and below [facility] Medical History History of CVA (cerebrovascular accident) (~08/2023) ?Z86.73 - Personal history of transient ischemic attack (TIA), and cerebral infarction without residual deficits (ICD-10) Ulnar neuropathy ?G56.20 - Lesion of ulnar nerve, unspecified upper limb (ICD-10) Arrhythmia ?I49.9 - Cardiac arrhythmia, unspecified (ICD-10) Former smoker ?Z87.891 - Personal history of nicotine dependence (ICD-10) Hyperlipidemia ?E78.5 - Hyperlipidemia, unspecified (ICD-10) 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 - Ventricular premature depolarization (ICD-10) Coronary artery aneurysm ?I25.41 - Coronary artery aneurysm (ICD-10) Cerebrovascular disease ?I67.9 - Cerebrovascular disease, unspecified (ICD-10) Ribs, multiple fractures ?S22.49XA - Multiple fractures of ribs, unspecified side, initial encounter for closed fracture (ICD-10) BPPV (benign paroxysmal positional vertigo) ?H81.10 - Benign paroxysmal vertigo, unspecified ear (ICD-10) Surgical History History of three vessel coronary artery bypass ?Z95.1 - Presence of aortocoronary bypass graft (ICD-10) History of surgery on right wrist ?Z98.890 - Other specified postprocedural states (ICD-10) History of carpal tunnel surgery of left wrist ?Z98.890 - Other specified postprocedural states (ICD-10) History of ankle surgery ?Z98.890 - Other specified postprocedural states (ICD-10) Family History Mother Asthma Maternal Grandmother Diabetes Family/Other Cardiomyopathy Father High blood pressure Social History Narrative: . is undergoing treatment for Multiple Myeloma and has some cognitive impairment. Son, Jelani, lives with them and sets up meds for patient's . Son works during the day and stops by the house or calls 1-5 times during the work day to check on them. Does not use illicit drugs Former smoker- quit in 2011 Occasional alcohol consumption What is your current living situation?: I presently have a place to live Problems where you live: no known problems Problems where you live details: N/A In the past 12 months, utilities in danger of being shut off: no In past 12 months, lack of transportation kept you from medical appts, meetings, work, or getting things needed for daily living: no In the past 12 mos, have been you worried that your food would run out before you had money to buy more?: never true In the past 12 mos, the food you bought just didn't last and you didn't have money to buy more?: never true Smoking Status: Former smoker Do you use any of these nicotine containing products: None Second hand tobacco smoke exposure: No How often do you have a drink containing alcohol: monthly or less How many standard drinks containing alcohol do you have on a typical day: 1 or 2 How often do you have six or more drinks on one occasion: Never AUDIT-C Alcohol total score: 1 Non-prescribed substance use: denies use How often does anyone, including family, friends and others, physically hurt you : never How often does anyone, including family, friends and others, insult or talk down to you: never How often does anyone, including family, friends and others, threaten you with harm: never How often does anyone, including family, friends and others, scream or curse at you: never Little interest or pleasure in doing things: more than half the days Feeling down, depressed, or hopeless: not at all service: No Exam Narrative: Exam Narrative: Well-nourished well-developed patient in no acute distress. Alert and oriented. Answers questions appropriately. Mood and affect are appropriate. Thoughts are goal oriented and rational. No tangential or magical thinking noted. Patie nt speaks in full sentences without needing to catch his breath. HEENT: Normocephalic atraumatic. Pupils are equally round and dilated. Extraocular muscles are intact. Conjunctivae are moist without any icterus noted. Moist mucous membranes. Extremities: Moving all extremities without difficulty. No obvious neurologic deficits. Cranial nerves 3-12 are intact. Skin: Well perfused without any obvious rashes. Const: Vital Signs, click to edit/add: Vital Signs - 24 hr 12/10/23 16:39 12/10/23 18:35 Temperature 98.5 F Pulse Rate 54 L Pulse Rate [Pulse Oximeter] 61 Respiratory Rate 16 16 Blood Pressure 143/100 H Blood Pressure [Le ft Upper Arm] 146/81 H Pulse Oximetry 95 94 Oxygen Delivery Me thod Room Air Room Air Course Course ED Course: Brain MRI ordered. This showed recent punctate infarcts in the periatrial white matter and several microhemorrhages. Discussed this with Dr. Duarte, stroke neurology at [facility] who recommended admission an echocardiogram to rule out a cardioembolic source. She felt that this was likely a progression of his micro vascular disease. Discussed continuing his Eliquis at this time. Vital Signs Vital signs: Initial Vital Signs Temperature 98.5 F 12/10/23 16:39 Temperature Source Temporal Artery Scan 12/10/23 16:39 Pulse Rate 61 12/10/23 16:39 Respiratory Rate 16 12/10/23 16:39 Blood Pressure 146/81 H 12/10/23 16:39 Blood Pressure Mean 102 12/10/23 16:39 Blood Pressure Position Sitting 12/10/23 16:39 Pulse Oximetry 95 12/10/23 16:39 Oxygen Delivery Method Room Air 12/10/23 16:39 Vital Signs Temperature 98.5 F 12/10/23 16:39 Pulse Rate 61 12/10/23 16:39 Respiratory Rate 16 12/10/23 16:39 Blood Pressure 146/81 H 12/10/23 16:39 Pulse Oximetry 95 12/10/23 16:39 Oxygen Delivery Method Room Air 12/10/23 16:39 Temperature 98.5 F 12/10/23 16:39 Pulse Rate 54 L 12/10/23 18:35 Respiratory Rate 16 12/10/23 18:35 Blood Pressure 143/100 H 12/10/23 18:35 Pulse Oximetry 94 12/10/23 18:35 Oxygen Delivery Method Room Air 12/10/23 18:35 Medical Decision Making MDM Narrative Medical decision making narrative: 78-year-old male with stroke-like symptoms and vision changes. Patient will be admitted for further management. Medical Records Medical records reviewed: Yes I reviewed the patient's medical records Imaging Data MRI - head: Attestation: I have reviewed the pertinent imaging results. Radiologist's impression: TECHNIQUE: Brain MRI without contrast. COMPARISON: Head CT from 12/10/2023. brain MRI from 09/19/2023. FINDINGS: Punctate focus of diffusion restriction within the right periatrial white matter, likely an acute or subacute infarct. Recent, likely subacute infarct is also present within the left periatrial white matter. Right anterior frontal encephalomalacia with accompanying hemosiderin staining. Right posterior temporal microhemorrhage. Multiple more prominent microhemorrhages within the brainstem and left cerebellar hemisphere. Small chronic cortical infarct right posterior superior temporal lobe. Chronic lacunar infarcts within the basal ganglia, right thalamus and deep cerebral white matter. Multiple chronic infarcts within the bilateral cerebellar hemispheres. Patchy and confluent T2/FLAIR hyperintensity within the supratentorial white matter and brainstem, typical for chronic microvascular ischemic change. No mass effect or herniation. No hydrocephalus or extra-axial collections. The pituitary gland, parasellar structures and optic chiasm are normal. All the major intracranial vascular structures demonstrate normal flow-related signal. The orbital contents are normal. No calvarial or skull base marrow replacing process. Complete opacification of the left maxillary sinus with a polyp or retention cyst. L no extracranial soft tissue findings. IMPRESSION: 1. Punctate recent infarcts within the right and left periatrial white matter. Given the location/distribution, embolic etiology is likely, as before. 2. Numerous chronic infarcts within the supratentorial/infratentorial brain as detailed above. Also present on prior MRI, with many on that exam seen as acute to subacute. 3. Right anterior frontal encephalomalacia and hemosiderin staining, compatible with chronic hemorrhage or hemorrhagic infarct. A few microhemorrhages within the supratentorial brain as well as more prominent microhemorrhages within the brainstem and left cerebellar hemisphere. These findings are all unchanged. 4. Moderate chronic microvascular ischemic/senescent changes. Discharge Plan Discharge Clinical Impression: Stroke Patient Disposition: Admitted As Observation Condition: Stable Prescriptions: No Action levetiracetam [Keppra] 500 mg tablet 500 mg PO BID trazodone 50 mg tablet 50 mg PO HS Qty: 90 1RF Rx Instructions: one tablet once daily for sleep aide Eliquis 5 mg tablet 5 mg PO BID Qty: 180 1RF Rx Instructions: one tablet twice daily metoprolol succinate 50 mg tablet extended release 24 hr 25 mg PO QDAY torsemide 5 mg tablet 5 mg PO DAILY ascorbic acid (vitamin C) 500 mg tablet 500 mg PO DAILY meclizine 25 mg tablet 25 mg PO TID PRN (Reason: dizziness) Qty: 90 0RF Rx Instructions: one tablet three times daily for vertigo acetaminophen 325 mg tablet 650 mg PO Q6H PRN cholecalciferol (vitamin D3) 125 mcg (5,000 unit) capsule 125 mcg PO DAILY aspirin 81 mg tablet,delayed release (DR/EC) 81 mg PO DAILY rosuvastatin 5 mg tablet 5 mg PO MOWEFR@21 ezetimibe 10 mg tablet 10 mg PO HS losartan 50 mg tablet 50 mg PO HS amiodarone 200 mg tablet 100 mg PO DAILY Qty: 15 0RF nitroglycerin 0.4 mg tablet, sublingual 0.4 mg sublingual Q5M PRN Rx Instructions: do not exceed 3 doses per episode pantoprazole 40 mg tablet,delayed release (DR/EC) 40 mg PO DAILY Qty: 90 2RF Rx Instructions: for GERD Follow Up/Referrals: Yohana Watkins PA-C [Primary Care Provider] -
--- NOTE | 2023-12-10 21:00 | PM.IMHP1 ---
Hospitalist- H&P: DHAVAL History of Present Illness Date Seen: 12/10/23 Chief complaint: Stroke eval, blood clot in eye Narrative: Isra Lehman is a 78 year old male with history of multiple previous ischemic strokes, chronic anticoagulation on Eliquis, coronary artery disease, history of atrial fibrillation and history of ventricular tachycardia who awoke this morning at 6:45 a.m. and noted a visual disturbance in his right eye. He noted that in the lower left visual field of his right eye he had a purple cloud impairing his vision. He presented to the emergency department this morning for evaluation. He had a head CT which showed chronic ischemic changes: encephalomalacia in the right anterior frontal lobe, chronic lacunar infarct in the head of the left caudate nucleus and chronic infarct in the left superior cerebellum. Incidentally noted were findings consistent with left maxillary opacification and sinusitis and a 6 mm colloid cyst in the superior 3rd ventricle. No acute findings. He was referred to ophthalmology for evaluation. 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 He was referred back to the emergency room for any brain MRI. The MRI showed recent acute infarcts in the right and left periatrial white matter suggestive of embolic etiology. Also also seen were old chronic changes including multiple infarcts and some hemosiderin staining suggesting chronic hemorrhage. Neurologic consultation recommended admission and echocardiogram. He has had no other symptoms other than this cloudiness in his right eye involving the lower left visual field. No other visual disturbance, diplopia, loss of vision, focal numbness or weakness. His son notes that he was having some left-sided weakness possibly at the time but patient reports no problem now. Patient was hospitalized here in August for stroke with multiple foci of cerebral and cerebellar acute and subacute infarcts likely due to a central embolic phenomena. At that time he had a subtherapeutic INR on warfarin. He was switched to Eliquis for alternative anticoagulation. He reports he has been generally doing better since that time. He has had follow-up with [facility] and is pending electrophysiology study in December with possible ablation. Details of this are uncertain. 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 #4 Heart failure with improved ejection fraction (LV ejection fraction approximately 55%) #5 High burden ventricular ectopy including ventricular tachycardia #6 Remote history of postoperative atrial fibrillation #6 Systemic hypertension, impaired fasting glucose with elevated hemoglobin A1c, dyslipidemia with statin related myalgias #7 Mild ascending aorta dilatation (44 mm) + infrarenal abdominal aortic aneurysm (3.5 cm) #8 Atrial septal aneurysm with patent foramen ovale #9 Cardioembolic stroke (August 2023) #9a Chronic cerebro(micro)vascular ischemic changes with prior indeterminate neurologic spells #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 We also discussed the uncertainties as to the origination of the thromboembolism with potential contributors including the remote history of postoperative atrial fibrillation, the modest left ventricular systolic dysfunction but without prior apical infarction or aneurysm, as well as the atrial septal aneurysm with patent foramen ovale but without recent signs or symptoms concerning for venous thrombosis (he does not recall extremity venous ultrasound performed during hospitalization). I am in the process of requesting the outside records including the dismissal summary, medication list, and MR brain + echocardiogram images for review. No medication changes recommended today. We reviewed the recent Heart Rhythm consultation and for now have opted to continue amiodarone and will reassess in approximately one month (he will notify me when he is returning to [place] and I will arrange a in-person visit). Importance for ongoing amiodarone-related surveillance testing previously reviewed and I suspect updated thyroid function cascade and hepatic function panel were obtained during hospitalization based on my request to his admitting physician. Will require annual studies (electrocardiogram, thyroid testing, hepatic function testing, chest radiograph + pulmonary function testing, and ophthalmologic examination) which will be due in June 2024. Review of Systems Narrative: Patient reports feeling fine other than the events of today described above. He reports he is been attempting to improve his fitness by walking every day. He uses a walker primarily because he has to stop and rest every quarter mile. Last year he was able to walk 2 miles a day and so far this year he has only gotten to 1 mile a day. Activity is limited by fatigue, not dyspnea or chest pain. [facility] Medical History (Updated 12/10/23 @ 21:30 by Eris Garcia MD) Bradycardia ?R00.1 - Bradycardia, unspecified (ICD-10) History of CVA (cerebrovascular accident) (~08/2023) ?Z86.73 - Personal history of transient ischemic attack (TIA), and cerebral infarction without residual deficits (ICD-10) Ulnar neuropathy ?G56.20 - Lesion of ulnar nerve, unspecified upper limb (ICD-10) Arrhythmia ?I49.9 - Cardiac arrhythmia, unspecified (ICD-10) Former smoker ?Z87.891 - Personal history of nicotine dependence (ICD-10) Hyperlipidemia ?E78.5 - Hyperlipidemia, unspecified (ICD-10) 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 - Ventricular premature depolarization (ICD-10) Coronary artery aneurysm ?I25.41 - Coronary artery aneurysm (ICD-10) Cerebrovascular disease ?I67.9 - Cerebrovascular disease, unspecified (ICD-10) Ribs, multiple fractures ?S22.49XA - Multiple fractures of ribs, unspecified side, initial encounter for closed fracture (ICD-10) BPPV (benign paroxysmal positional vertigo) ?H81.10 - Benign paroxysmal vertigo, unspecified ear (ICD-10) Surgical History History of three vessel coronary artery bypass ?Z95.1 - Presence of aortocoronary bypass graft (ICD-10) History of surgery on right wrist ?Z98.890 - Other specified postprocedural states (ICD-10) History of carpal tunnel surgery of left wrist ?Z98.890 - Other specified postprocedural states (ICD-10) History of ankle surgery ?Z98.890 - Other specified postprocedural states (ICD-10) Family History Mother Asthma Maternal Grandmother Diabetes Family/Other Cardiomyopathy Father High blood pressure Social History (Updated 12/10/23 @ 21:23 by Eris Garcia MD) Narrative: . is undergoing treatment for Multiple Myeloma and has some cognitive impairment. Son, Jelani, lives with them and sets up meds for the patient and his . Son works during the day and stops by the house or calls 1-5 times during the work day to check on them. Does not use illicit drugs Former smoker- quit in 2011 Occasional alcohol consumption Can ambulate without a walker but uses a four-wheel walker when he goes on longer walks so he can stop and rest. What is your current living situation?: I presently have a place to live Problems where you live: no known problems Problems where you live details: N/A In the past 12 months, utilities in danger of being shut off: no In past 12 months, lack of transportation kept you from medical appts, meetings, work, or getting things needed for daily living: no In the past 12 mos, have been you worried that your food would run out before you had money to buy more?: never true In the past 12 mos, the food you bought just didn't last and you didn't have money to buy more?: never true Smoking Status: Former smoker Do you use any of these nicotine containing products: None Second hand tobacco smoke exposure: No How often do you have a drink containing alcohol: monthly or less How many standard drinks containing alcohol do you have on a typical day: 1 or 2 How often do you have six or more drinks on one occasion: Never AUDIT-C Alcohol total score: 1 Non-prescribed substance use: denies use How often does anyone, including family, friends and others, physically hurt you: never How often does anyone, including family, friends and others, insult or talk down to you: never How often does anyone, including family, friends and others, threaten you with harm: never How often does anyone, including family, friends and others, scream or curse at you: never Little interest or pleasure in doing things: more than half the days Feeling down, depressed, or hopeless: not at all service: No Meds Home Medications and Allergies Home Medications ?Medication ?Instructions ?Recorded ?Confirmed ?Type nitroglycerin 0.4 mg sublingual 0.4 mg sublingual Q5M PRN 02/02/22 12/10/23 History tablet levetiracetam 500 mg tablet 500 mg PO BID 03/13/22 12/10/23 History (Keppra) torsemide 5 mg tablet 5 mg PO DAILY 07/07/22 12/10/23 History ascorbic acid (vitamin C) 500 mg 500 mg PO DAILY 10/14/22 12/10/23 History tablet acetaminophen 325 mg tablet 650 mg PO Q6H PRN 09/19/23 12/10/23 History aspirin 81 mg tablet,delayed 81 mg PO DAILY 09/19/23 12/10/23 History release cholecalciferol (vitamin D3) 125 125 mcg PO DAILY 09/19/23 12/10/23 History mcg (5,000 unit) capsule ezetimibe 10 mg tablet 10 mg PO HS 09/19/23 12/10/23 History losartan 50 mg tablet 50 mg PO HS 09/19/23 12/10/23 History rosuvastatin 5 mg tablet 5 mg PO MOWEFR@21 09/19/23 12/10/23 History metoprolol succinate 50 mg 25 mg PO QDAY 11/14/23 12/10/23 History tablet,extended release 24 hr Allergies Allergy/AdvReac Type Severity Reaction Status Date / Time amlodipine Allergy Severe hives/rash Verified 12/10/23 11:22 [id number] Reductase AdvReac Intermediate myalgia Verified 12/10/23 16:42 Inhibitor iothalamate Allergy Severe had to do Uncoded 12/10/23 16:42 chest compressions and shock heart with angio dye Exam Narrative: Exam Narrative: He is alert and appears in no distress. He gives his own history with fair detail. He is uncertain about the medical diagnosis and treatment that he is going to have at [place] next month. Speech is fluent. Comprehension is good. He has no facial asymmetry. Eyes are normal. Pupils are equal round reactive to light. Extraocular movements are full. No dysconjugate gaze. No diplopia. Visual galo: Intact in both eyes however he describes a cloudiness to his right eye lower left visual quadrant. He can see finger movements and count fingers in that area however. Facial sensations intact. Oropharynx is normal. Tongue is midline. Neck is supple without mass or adenopathy. Respirations are clear to auscultation. Cardiovascular: S1, S2, regular rhythm, bradycardia. Distant heart sounds. Abdomen is soft without tenderness or mass. Extremities: Right elbow has chronic deformity since childhood injury with a lack of extension. Strength in both upper extremities otherwise symmetric and full in the shoulder, elbow, wrist. Lower extremities have symmetric strength in hip flexion, knee flexion and extension, ankle flexion and extension and great toe extension bilaterally. Const: Vital Signs, click to edit/add: Vital Signs - 24 hr 12/10/23 16:39 12/10/23 18:35 12/10/23 18:36 Temperature 98.5 F Pulse Rate 54 L 54 L Pulse Rate [Pulse Oximeter] 61 Respiratory Rate 16 16 Blood Pressure 143/100 H Blood Pressure [Le ft Upper Arm] 146/81 H Pulse Oximetry 95 94 88 Oxygen Delivery Me thod Room Air Room Air 12/10/23 18:37 12/10/23 18:45 12/10/23 19:00 Temperature Pulse Rate 49 L 55 L 50 L Pulse Rate [Pulse Oximeter] Respiratory Rate Blood Pressure 147/80 H Blood Pressure [Le ft Upper Arm] Pulse Oximetry 92 94 94 Oxygen Delivery Me thod 12/10/23 19:02 12/10/23 19:15 12/10/23 19:30 Temperature Pulse Rate 50 L 51 L 45 L Pulse Rate [Pulse Oximeter] Respiratory Rate 16 Blood Pressure 137/92 H Blood Pressure [Le ft Upper Arm] Pulse Oximetry 93 95 95 Oxygen Delivery Me thod Room Air 12/10/23 19:31 12/10/23 19:45 Temperature Pulse Rate 52 L 45 L Pulse Rate [Pulse Oximeter] Respiratory Rate Blood Pressure 154/93 H Blood Pressure [Le ft Upper Arm] Pulse Oximetry 96 96 Oxygen Delivery Me thod Documenting provider has reviewed patient's vital signs: yes Hospitalist - H&P: Result Imaging MR Brain: Radiologist's impression: INDICATION: Neurologic deficit. TECHNIQUE: Brain MRI without contrast. COMPARISON: Head CT from 12/10/2023. brain MRI from 09/19/2023. FINDINGS: Punctate focus of diffusion restriction within the right periatrial white matter, likely an acute or subacute infarct. Recent, likely subacute infarct is also present within the left periatrial white matter. Right anterior frontal encephalomalacia with accompanying hemosiderin staining. Right posterior temporal microhemorrhage. Multiple more prominent microhemorrhages within the brainstem and left cerebellar hemisphere. Small chronic cortical infarct right posterior superior temporal lobe. Chronic lacunar infarcts within the basal ganglia, right thalamus and deep cerebral white matter. Multiple chronic infarcts within the bilateral cerebellar hemispheres. Patchy and confluent T2/FLAIR hyperintensity within the supratentorial white matter and brainstem, typical for chronic microvascular ischemic change. No mass effect or herniation. No hydrocephalus or extra-axial collections. The pituitary gland, parasellar structures and optic chiasm are normal. All the major intracranial vascular structures demonstrate normal flow-related signal. The orbital contents are normal. No calvarial or skull base marrow replacing process. Complete opacification of the left maxillary sinus with a polyp or retention cyst. L no extracranial soft tissue findings. IMPRESSION: 1. Punctate recent infarcts within the right and left periatrial white matter. Given the location/distribution, embolic etiology is likely, as before. 2. Numerous chronic infarcts within the supratentorial/infratentorial brain as detailed above. Also present on prior MRI, with many on that exam seen as acute to subacute. 3. Right anterior frontal encephalomalacia and hemosiderin staining, compatible with chronic hemorrhage or hemorrhagic infarct. A few microhemorrhages within the supratentorial brain as well as more prominent microhemorrhages within the brainstem and left cerebellar hemisphere. These findings are all unchanged. 4. Moderate chronic microvascular ischemic/senescent changes. Assessment and Plan Assessment and plan (1) Stroke: Problem comment: MRI evidence of acute stroke. 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 Suspicious for cardioembolic stroke. Repeat echo. Refer back to [facility] for further evaluation and treatment of embolic stroke. Continue apixaban 5 mg b.i.d. and aspirin 81 mg daily Status: Acute (2) Bradycardia: Problem comment: Pulse is in the 40s and 50s today. Hold metoprolol. Consider resuming metoprolol at a reduced dose depending on his pulse. Continue amiodarone at low dose of 100 mg daily. Status: Acute Plan Patient is admitted for ongoing evaluation and management of stroke including cardiac monitoring, echocardiogram, symptom monitoring. Total Time Spent Total Time Spent: Total time spent today is 85 minutes, 60 minutes in coordination of care discussing with patient other providers ongoing evaluation management of stroke
[2023-12-10] MEDS: APIXABAN 5 MG TABLET PO (21:31)
[2023-12-10] MEDS: levETIRAcetam 500 MG TABLET PO (21:31)
[2023-12-10] MEDS: LOSARTAN POTASSIUM 50 MG TABLET PO (21:31)
[2023-12-10] MEDS: EZETIMIBE 10 MG TABLET PO (21:32)
[2023-12-10] MEDS: SODIUM CHLORIDE 0.9 % (FLUSH) 10 ML SYRINGE 5 ML IVF (21:34)
[2023-12-10] MEDS: TRAZODONE HCL 50 MG TABLET PO (22:54)
[2023-12-11 03:39] VITALS: BP 148/88; PULSE 51; RESP 20; TEMP 36; O2SAT 95
--- NOTE | 2023-12-11 05:19 | PC.NURSE ---
Patient admitted to the unit at 195. A&Ox3. Denies pain. SBA. Denies SOB/headache/CP. Cloudiness in R. eye remains but patient feels is improving. No new symptoms or concerns overnight.
[2023-12-11 07:05] VITALS: PULSE 46
[2023-12-11 08:14] VITALS: BP 143/95; PULSE 59; RESP 20; TEMP 37.2; O2SAT 100
[2023-12-11] MEDS: AMIODARONE 200 MG TABLET 100 MG PO (09:10)
[2023-12-11] MEDS: OMEPRAZOLE 20 MG CAPSULE DR 40 MG PO (09:12)
[2023-12-11] MEDS: levETIRAcetam 500 MG TABLET PO (09:12)
[2023-12-11] MEDS: APIXABAN 5 MG TABLET PO (09:12)
[2023-12-11] MEDS: TORSEMIDE 5 MG TABLET PO (09:12)
[2023-12-11] MEDS: ASPIRIN 81 MG TABLET EC PO (09:12)
[2023-12-11] MEDS: ASCORBIC ACID 500 MG TABLET PO (09:12)
[2023-12-11] MEDS: SODIUM CHLORIDE 0.9 % (FLUSH) 10 ML SYRINGE 5 ML IVF (09:13)
--- NOTE | 2023-12-11 10:02 | NUTR.NU ---
RDN with diet education related to heart healthy diet. Patient admitted for stroke. Current weight 193 lbs; height 5ft 7in; BMI 30.2 kg/m2. Weight has decreased about 10 lbs within 90 days, this is not significant weight loss. Current diet is Heart Healthy (low fat, low cholesterol, 2 gram sodium). Breakfast intake today was 100%. Patient was hospitalized in August 2022 for CVA and received heart healthy diet education on 09/21/2023. RDN visited with patient whom reports doing well at home. He has been trying to watch what he eats, however he does like sweets and cookies. He lives with his and son who cares for him. Patient declined diet education at this time. No nutrition interventions - RDN will continue to monitor and follow-up prn.
[2023-12-11 11:14] VITALS: BP 132/88; PULSE 63; RESP 18; TEMP 37.4; O2SAT 96
--- NOTE | 2023-12-11 14:50 | PM.DS1 ---
DS: Providers Provider Time Seen by Provider: 11:08 Date Seen: 12/11/23 Date of admission: 12/11/23 09:06 Primary care physician: Yohana Watkins PA-C Admitting Clinician: Eris Garcia MD Consults: 12/10/23 20:19 Consult to Occupational Therapy [CONS] Routine Comment: Reason(s) for OT Consult:: Evaluate and Treat Any Restrictions?:: No Restrictions Consult to Physical Therapy [CONS] Routine Comment: Reason(s) for PT Consult:: Evaluate and Treat Any Restrictions?:: No Restrictions Attending Physician on discharge: Laila Villalta MD Date of Discharge: 12/11/23 DS: Diagnosis Discharge Diagnosis (1) Bradycardia: Status: Acute Problem details: Pulse is in the 40s and 50s 12/09 and overnight into 12/10. Continue to hold metoprolol and have patient f/u with PCP. Continue amiodarone at low dose of 100 mg daily. (2) Stroke: Status: Acute Problem details: Although MRI evidence of acute stroke. Dr. George states these are all old lesions present on previous MRI, nothing new. 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 Continue apixaban 5 mg b.i.d. and aspirin [address] George thought this was possibly caused by a cholesterol plaque from the mild R internal carotid stenosis and we should increase crestor to 10 mg MWF or 5 mg daily. Patient wants 10mg MWF. (3) History of CVA (cerebrovascular accident): Status: Acute Problem details: -August 202309/19: MRI showing right greater than left diffuse/innumerable foci of cerebellar and cerebral acute/subacute infarcts. Overall suggested of a central embolic phenomena. Cardioembolic in nature. Started Eliquis 5 mg twice daily on 09/20. 09/18: Echo revealed a technically limited exam. Normal LV size. Mild increased wall thickness. EF 55-60%. Global systolic RV function is normal. No significant valve disease. 12/10 Dr. George reviewed MRI done 12/09 and thought there were no new lesions, but that there is a phenomenon that can happen that makes the lesions appear to be acute. He said he went through lesion by lesion and was able to match them to lesions already present on MRI from August. (4) Hyperlipidemia: Status: Chronic Problem details: Increase rosuvastatin as above DS: Summary Hospital Course Hospital Course: Per H&P: Isra Lehman is a 78 year old male with history of multiple previous ischemic strokes, chronic anticoagulation on Eliquis, coronary artery disease, history of atrial fibrillation and history of ventricular tachycardia who awoke this morning at 6:45 a.m. and noted a visual disturbance in his right eye. He noted that in the lower left visual field of his right eye he had a purple cloud impairing his vision. He presented to the emergency department this morning for evaluation. He had a head CT which showed chronic ischemic changes: encephalomalacia in the right anterior frontal lobe, chronic lacunar infarct in the head of the left caudate nucleus and chronic infarct in the left superior cerebellum. Incidentally noted were findings consistent with left maxillary opacification and sinusitis and a 6 mm colloid cyst in the superior 3rd ventricle. No acute findings. He was referred to ophthalmology for evaluation. 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 He was referred back to the emergency room for any brain MRI. The MRI showed recent acute infarcts in the right and left periatrial white matter suggestive of embolic etiology. Also also seen were old chronic changes including multiple infarcts and some hemosiderin staining suggesting chronic hemorrhage. Neurologic consultation recommended admission and echocardiogram. He has had no other symptoms other than this cloudiness in his right eye involving the lower left visual field. No other visual disturbance, diplopia, loss of vision, focal numbness or weakness. His son notes that he was having some left-sided weakness possibly at the time but patient reports no problem now. Patient was hospitalized here in August for stroke with multiple foci of cerebral and cerebellar acute and subacute infarcts likely due to a central embolic phenomena. At that time he had a subtherapeutic INR on warfarin. He was switched to Eliquis for alternative anticoagulation. He reports he has been generally doing better since that time. He has had follow-up with [facility] and is pending electrophysiology study in December with possible ablation. Details of this are uncertain. 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 #4 Heart failure with improved ejection fraction (LV ejection fraction approximately 55%) #5 High burden ventricular ectopy including ventricular tachycardia #6 Remote history of postoperative atrial fibrillation #6 Systemic hypertension, impaired fasting glucose with elevated hemoglobin A1c, dyslipidemia with statin related myalgias #7 Mild ascending aorta dilatation (44 mm) + infrarenal abdominal aortic aneurysm (3.5 cm) #8 Atrial septal aneurysm with patent foramen ovale #9 Cardioembolic stroke (August 2023) #9a Chronic cerebro(micro)vascular ischemic changes with prior indeterminate neurologic spells #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 We also discussed the uncertainties as to the origination of the thromboembolism with potential contributors including the remote history of postoperative atrial fibrillation, the modest left ventricular systolic dysfunction but without prior apical infarction or aneurysm, as well as the atrial septal aneurysm with patent foramen ovale but without recent signs or symptoms concerning for venous thrombosis (he does not recall extremity venous ultrasound performed during hospitalization). I am in the process of requesting the outside records including the dismissal summary, medication list, and MR brain + echocardiogram images for review. No medication changes recommended today. We reviewed the recent Heart Rhythm consultation and for now have opted to continue amiodarone and will reassess in approximately one month (he will notify me when he is returning to [place] and I will arrange a in-person visit). Importance for ongoing amiodarone-related surveillance testing previously reviewed and I suspect updated thyroid function cascade and hepatic function panel were obtained during hospitalization based on my request to his admitting physician. Will require annual studies (electrocardiogram, thyroid testing, hepatic function testing, chest radiograph + pulmonary function testing, and ophthalmologic examination) which will be due in June 2024. Overnight patient remained bradycardic, but asymptomatic. HR 40-60s (Metoprolol was on hold, so last dose was evening of 12/08). 12/09 MRI obtained, results below. Dr. George from stroke Neuro consulted and thought this was not a cardioembolic stroke and wanted him to have increased crestor. Patient is discharged in stable condition. Time Spent with Patient Time attestation: Total time spent providing and/or coordinating discharge services: Exam Narrative: Exam Narrative: General: No acute distress. Awake, alert, oriented x3. No pallor. No jaundice. Oropharynx: Clear. Mucous membranes moist. Cardiovascular: Regular rate and rhythm. No murmurs, gallops, or rubs. Respiratory: Clear to auscultation bilaterally. No wheezes or crackles. Neuro: He describes post edge damp like cloudiness in his right eye that is unchanged, possibly a little bit better, from yesterday. Visual galo and vision are otherwise intact. Neuro exam is otherwise unremarkable. Const: Vital Signs, click to edit/add: Vital Signs - 24 hr 12/10/23 16:39 12/10/23 18:35 12/10/23 18:36 Temperature 98.5 F Pulse Rate 54 L 54 L Pulse Rate [Pulse Oximeter] 61 Respiratory Rate 16 16 Blood Pressure 143/100 H Blood Pressure [Le ft Arm] Blood Pressure [Le ft Upper Arm] 146/81 H Blood Pressure [Ri ght Arm] Pulse Oximetry 95 94 88 Oxygen Delivery Me thod Room Air Room Air 12/10/23 18:37 12/10/23 18:45 12/10/23 19:00 Temperature Pulse Rate 49 L 55 L 50 L Pulse Rate [Pulse Oximeter] Respiratory Rate Blood Pressure 147/80 H Blood Pressure [Le ft Arm] Blood Pressure [Le ft Upper Arm] Blood Pressure [Ri ght Arm] Pulse Oximetry 92 94 94 Oxygen Delivery Me thod 12/10/23 19:02 12/10/23 19:15 12/10/23 19:30 Temperature Pulse Rate 50 L 51 L 45 L Pulse Rate [Pulse Oximeter] Respiratory Rate 16 Blood Pressure 137/92 H Blood Pressure [Le ft Arm] Blood Pressure [Le ft Upper Arm] Blood Pressure [Ri ght Arm] Pulse Oximetry 93 95 95 Oxygen Delivery Me thod Room Air 12/10/23 19:31 12/10/23 19:45 12/10/23 23:00 Temperature Pulse Rate 52 L 45 L 51 L Pulse Rate [Pulse Oximeter] Respiratory Rate Blood Pressure 154/93 H Blood Pressure [Le ft Arm] Blood Pressure [Le ft Upper Arm] Blood Pressure [Ri ght Arm] Pulse Oximetry 96 96 Oxygen Delivery Me thod 12/10/23 23:09 12/10/23 23:17 12/11/23 03:39 Temperature 97.5 F L 97.5 F L 96.8 F L Pulse Rate Pulse Rate [Pulse Oximeter] 59 L 60 51 L Respiratory Rate 20 20 20 Blood Pressure Blood Pressure [Le ft Arm] 179/82 H 141/93 H 148/88 H Blood Pressure [Le ft Upper Arm] Blood Pressure [Ri ght Arm] Pulse Oximetry 98 93 95 Oxygen Delivery Me thod Room Air Room Air Room Air 12/11/23 07:05 12/11/23 08:14 12/11/23 08:14 Temperature 98.9 F Pulse Rate 46 L Pulse Rate [Pulse Oximeter] 59 L 59 L Respiratory Rate 20 20 Blood Pressure Blood Pressure [Le ft Arm] Blood Pressure [Le ft Upper Arm] Blood Pressure [Ri ght Arm] 143/95 H Pulse Oximetry 100 Oxygen Delivery Me thod Room Air 12/11/23 11:14 Temperature 99.4 F Pulse Rate Pulse Rate [Pulse Oximeter] 63 Respiratory Rate 18 Blood Pressure Blood Pressure [Le ft Arm] 132/88 Blood Pressure [Le ft Upper Arm] Blood Pressure [Ri ght Arm] Pulse Oximetry 96 Oxygen Delivery Me thod Room Air DS: Data Data Completed and Pending Completed studies during hospitalization: 12/10/2023 EKG: Sinus bradycardia with sinus arrhythmia with occasional premature ventricular complexes, 53 beats per minute. Left anterior fascicular block. Ordering Physician: Wesley Urena M.D. Date of Service: 12/10/23 Procedure(s): CT head/brain wo con Accession Number(s): [id number] cc: Yohana PRASAD; Wesley Urena M.D.~ For Patients: As a result of the 21st Century Cures Act, medical imaging exams and procedure reports are released immediately into your electronic medical record. You may view this report before your referring provider. If you have questions, please contact your health care provider. INDICATION: CLOUDED/OBSCURED RT EYE LOWER VISUAL FIELD TECHNIQUE: CT of the head without contrast. Coronal and sagittal reformats. Bone and soft tissue algorithms. COMPARISON: MRI 09/19/2023, CT 09/19/2023, 11/08/2018 FINDINGS: No acute intracranial hemorrhage or extra-axial collection. No evidence of acute cortical infarction. 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 Chronic encephalomalacia in the right anterior frontal lobe. Chronic lacunar infarct in the head of the left caudate nucleus. Chronic infarct in the left superior cerebellum. Partially empty sella. No mass effect or midline shift. Moderate generalized cerebral/cerebellar parenchymal volume loss. Moderate regions of decreased attenuation within the periventricular and subcortical white matter of both cerebral hemispheres most likely reflects chronic microvascular ischemic disease and age related change in this patient. Vascular calcifications within the carotid siphons. Orbital contents are normal. No calvarial fractures. No lytic or sclerotic osseous lesions within the calvarium or skull base. Scalp and other imaged soft tissue structures are normal. Mastoid air cells are clear. Complete opacification of the left maxillary sinus containing hyperdense material likely inspissated secretions. IMPRESSION: 1. No evidence of acute intracranial abnormality. 2. 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 3. Chronic encephalomalacia in the right anterior frontal lobe. Chronic lacunar infarct in the head of the left caudate nucleus. Chronic infarct in the left superior cerebellum. 4. Moderate parenchymal volume loss and chronic small vessel disease. 5. Complete opacification of the left maxillary sinus containing hyperdense material likely inspissated secretions. Please note that all CT scans at this facility use dose modulation, iterative reconstruction, and/or weight-based dosing when appropriate to reduce radiation dose to as low as reasonably achievable. Dictated by Wesley Lema MD @ 12/10/2023 1:02:51 PM (Electronically Signed) Ordering Physician: Donya Baldwin M.D. Date of Service: 12/10/23 Procedure(s): MR head/brain wo con Accession Number(s): [id number] cc: Donya Baldwin M.D.; Yohana PRASAD~ For Patients: As a result of the 21st Century Cures Act, medical imaging exams and procedure reports are released immediately into your electronic medical record. You may view this report before your referring provider. If you have questions, please contact your health care provider. INDICATION: Neurologic deficit. TECHNIQUE: Brain MRI without contrast. COMPARISON: Head CT from 12/10/2023. brain MRI from 09/19/2023. FINDINGS: Punctate focus of diffusion restriction within the right periatrial white matter, likely an acute or subacute infarct. Recent, likely subacute infarct is also present within the left periatrial white matter. Right anterior frontal encephalomalacia with accompanying hemosiderin staining. Right posterior temporal microhemorrhage. Multiple more prominent microhemorrhages within the brainstem and left cerebellar hemisphere. Small chronic cortical infarct right posterior superior temporal lobe. Chronic lacunar infarcts within the basal ganglia, right thalamus and deep cerebral white matter. Multiple chronic infarcts within the bilateral cerebellar hemispheres. Patchy and confluent T2/FLAIR hyperintensity within the supratentorial white matter and brainstem, typical for chronic microvascular ischemic change. No mass effect or herniation. No hydrocephalus or extra-axial collections. The pituitary gland, parasellar structures and optic chiasm are normal. All the major intracranial vascular structures demonstrate normal flow-related signal. The orbital contents are normal. No calvarial or skull base marrow replacing process. Complete opacification of the left maxillary sinus with a polyp or retention cyst. L no extracranial soft tissue findings. IMPRESSION: 1. Punctate recent infarcts within the right and left periatrial white matter. Given the location/distribution, embolic etiology is likely, as before. 2. Numerous chronic infarcts within the supratentorial/infratentorial brain as detailed above. Also present on prior MRI, with many on that exam seen as acute to subacute. 3. Right anterior frontal encephalomalacia and hemosiderin staining, compatible with chronic hemorrhage or hemorrhagic infarct. A few microhemorrhages within the supratentorial brain as well as more prominent microhemorrhages within the brainstem and left cerebellar hemisphere. These findings are all unchanged. 4. Moderate chronic microvascular ischemic/senescent changes. Dictated by Aaron Garcia MD @ 12/10/2023 6:59:54 PM (Electronically Signed) Discharge Plan Discharge Disposition: Home, Self-Care Date of Admission: 12/11/23 09:06 Attending Provider on Discharge: Laila Villalta Primary Care Provider: Yohana Watkins Condition: Stable Anticipated Discharge Date/Time: 12/11/23 15:11 Discharge Medications: Continued levetiracetam [Keppra] 500 mg tablet 500 mg PO BID Eliquis 5 mg tablet 5 mg PO BID Qty: 180 1RF Rx Instructions: one tablet twice daily metoprolol succinate 50 mg tablet extended release 24 hr 25 mg PO QDAY torsemide 5 mg tablet 5 mg PO DAILY ascorbic acid (vitamin C) 500 mg tablet 500 mg PO DAILY meclizine 25 mg tablet 25 mg PO TID PRN (Reason: dizziness) Qty: 90 0RF Rx Instructions: one tablet three times daily for vertigo trazodone 50 mg tablet 50 mg PO HS Rx Instructions: one tablet once daily for sleep aide acetaminophen 325 mg tablet 650 mg PO Q6H PRN cholecalciferol (vitamin D3) 125 mcg (5,000 unit) capsule 125 mcg PO DAILY aspirin 81 mg tablet,delayed release (DR/EC) 81 mg PO DAILY ezetimibe 10 mg tablet 10 mg PO HS losartan 50 mg tablet 50 mg PO HS nitroglycerin 0.4 mg tablet, sublingual 0.4 mg sublingual Q5M PRN Rx Instructions: do not exceed 3 doses per episode pantoprazole 40 mg tablet,delayed release (DR/EC) 40 mg PO DAILY Qty: 90 2RF Rx Instructions: for GERD Changed rosuvastatin 5 mg tablet 10 mg PO MOWEFR@21 Qty: 30 0RF Discontinued metoprolol succinate 25 mg tablet extended release 24 hr 25 mg PO QPM amiodarone 200 mg tablet 200 mg PO DAILY Discharge Orders: Discharge Order (Routine); Ordered 12/11/23 Ordered By: Laila Villalta Additional Instructions: Cardiology 2-3 weeks Activity Level: No Restrictions Discharge Diet: Low Fat/Low Cholesterol Follow Up Appointments: Yohana Watkins PA-C [Primary Care Provider] - (3-5 days) Forms: [employer] Info Instructions
--- NOTE | 2023-12-11 17:21 | PC.NURSE ---
Discharge: Patient pleasant and cooperative. Patient vitally stable, lungs clear, BS WNL, IV removed, catheter intact. Patient denies pain and SBA when ambulating to toilet. Patient urinating and had 2 BM, tolerating regular diet. Patient reports right eye vision has not improved. Tele=Sinus Chandrakant w/ [facility] this afternoon. Patient signed belongings sheet and discharge form. Patient had no further questions regarding discharge information. Patient left the floor by foot with family to home at 1635.
== END 2023-12-11 16:35 | disposition home or self-care (01) | DRG 123 ==
LOC: ED 19:37 → MEDSURG 19:55
PROVIDERS: Admitting Provider Family Medicine; Emergency Provider Family Medicine; PCP Physician Assistant Medical; Visit Provider Family Medicine
DX: H34.211 Partial retinal artery occlusion, right eye (principal); R00.1 Bradycardia, unspecified; I48.91 Unspecified atrial fibrillation; Z79.01 Long term (current) use of anticoagulants; I69.398 Other sequelae of cerebral infarction; G93.89 Other specified disorders of brain; I44.4 Left anterior fascicular block; I25.10 Atherosclerotic heart disease of native coronary artery without angina pectoris; Z95.1 Presence of aortocoronary bypass graft; E78.5 Hyperlipidemia, unspecified
CPT/HCPCS: 70450; 70551; 97112; 97116; 97161; 97165; 99284; G0378; A9270

== ENCOUNTER 2024-01-22 11:33 | Outpatient (CLI) | payer OTHER, SELFPAY | END 2024-01-22 11:34 | disposition home or self-care (01) | LOC: NFLDREF 01-24 10:38 | PROVIDERS: PCP Physician Assistant Medical; Referring Provider Physician Assistant Medical; Visit Provider Physician Assistant Medical | DX: I10 Essential (primary) hypertension (principal) | CPT/HCPCS: 80048 ==

== ENCOUNTER 2024-01-31 09:35 | Outpatient (CLI) | payer OTHER, SELFPAY | END 2024-01-31 09:36 | disposition home or self-care (01) | LOC: NFLDREF 02-02 06:37 | PROVIDERS: PCP Physician Assistant Medical; Referring Provider Physician Assistant Medical; Visit Provider Physician Assistant Medical | DX: I10 Essential (primary) hypertension (principal); E78.5 Hyperlipidemia, unspecified | CPT/HCPCS: 80048 ==

== ENCOUNTER 2024-02-14 13:11 | Outpatient (CLI) | payer OTHER, SELFPAY | END 2024-02-14 13:12 | disposition home or self-care (01) | PROVIDERS: PCP Physician Assistant Medical; Referring Provider Physician Assistant Medical; Visit Provider Physician Assistant Medical | DX: I10 Essential (primary) hypertension (principal) | CPT/HCPCS: 80048 ==

== ENCOUNTER 2024-05-28 11:45 | Outpatient (RCR) | payer OTHER, SELFPAY ==
--- NOTE | 2024-02-18 10:05 | PT.OPE ---
PT [place] Outpatient Eval PT [facility] Outpatient Eval Start: 02/14/24 18:04 Freq: Status: Active Protocol: Document 02/14/24 18:04 BMS (Rec: 02/14/24 18:09 BMS [id number]) E-signed By Kemi Mckeon PT Physical Therapy Outpatient Evaluation Insurance Information Recert Due Date 05/13/24 Insurance Name [employer] Insurance Information/Comments medicare advantage Medical Diagnosis history of falling Z91.81 dizziness and giddiness R42 TIA Z86.73 other malaise R53.81 Treating Diagnosis abnormal gait R26.89 dysmetria R27.8 weakness R53.1 Imaging Report Information 12/10/23upnctate focus of diffusion restriction R periatrial white matter, acute or subacute. alsp L periatrial multiple chronic infarcts B cerebellar hemispheres. chronic lacunar infarcts basal ganglia, R thalamus and deep cerebral white matter. stable 6mm colloid cyst ant sup 3rd ventricle chronic encephalomalacia in R anterior frontal lobe. chronic lacunar in head of L caudate nucleus. chronic infarct in L superior cerebellum. mod parenchymal volume loss and chronic small vessel disease. complete opacification of L maxillary sinus. Referring MD Yohana Watkins Subjective Preferred Name Marino Subjective had stroke in August, discovered when I couldnt turn hand over. went to ED. L side affected. hx of vertigo 7+ years ago, fell to floor, vomiting etc, had little bit few nights before stroke. Happened in care center severe again where I vomited and had to call 911 to get help. Vision in R eye is cloudy, now like a kaleidoscope, happened about a month after stroke. have hereditory 'thick blood' dont know why, was on warfarin now on eliquis. had triple bypass 06/2017, heart ablation 03/2018. want to be able to get up and down from floor, run and play with 5 grandkids, improve leg strength, get up from low/soft furniture, bed in/out and better balance and not verr to L with walking. 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 #4 Heart failure with improved ejection fraction (LV ejection fraction approximately 55%) #5 High burden ventricular ectopy including ventricular tachycardia #6 Remote history of postoperative atrial fibrillation #6 Systemic hypertension, impaired fasting glucose with elevated hemoglobin A1c, dyslipidemia with statin related myalgias #7 Mild ascending aorta dilatation (44 mm) + infrarenal abdominal aortic aneurysm (3.5 cm) #8 Atrial septal aneurysm with patent foramen ovale #9 Cardioembolic stroke (August 2023) #9a Chronic cerebro(micro) vascular ischemic changes with prior indeterminate neurologic spells #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 R shoulder limited in flex and ext R elbow flex WFL, ext only to 90, hard end feel. hip flex 90, ER/IR not assessed this date. abduct 45 in standing with lateral lean ext limited in standing. knees B HS tightness, ankle tightness. Strength hip flex R = 5/5, L = 4+/5. L hoof trimmer ~ 50% R though no dynamometer available at time of exam shoulder R ER 3/5, abduct 3/5 other shoulder, elbow wrist groups 5/5 Balance & Gait Gait = wide based, lack of full hip ext B, knee flex for compnesation, lack of L arm swing and path deviation with head turn. patient reports hx of veering to left meena when in open space, and bumping left door frame when passing through. heels ~4 apart EO steady after adjusting foot position, EC LOB to L, tandem falls to L sit to stand requires use of calves on chair or use of UE, LOB requiring mod to max assist for recovery. reaching overhead w R UE - LOB L Posture sitting in chair, left slump, lean that progresses as patient talks. can correct with verbal cueing, standing also slumps leftsomewhat. COG awareness limited. ant pelvic tilt, seated more of a sacral sit after minutes. Other/Pertinent Objective attempts to stand with hips toward back of chair, even with cueing tends to LOB posterior Double vision with convergence point ~ 12 from bridge, gaze stab target doubles with R cervical rotation. able to smooth pursuit and target with some difficulty. gaze stab not accurate due to visual deficits, continue to test. Finger to nose L moderate dysmetria with difficulty attaining target, lateral over /under shoot Functional Test Performed & Score 5x STS 20 sec use of backs of legs on chair or UE - LOB L and posterior Activities-specific Balance Confidence (ABC) Scale Summary 1. Walk around the house? Confidence walking around the house: 100 / 100 (100 points) 2. Walk up or down stairs? Confidence walking up or down stairs: 80 / 100 (80 points) 3. Bend over and cotton picker a slipper from the front of a closet floor? Confidence bending over (e.g. to cotton picker slipper): 80 / 100 (80 points) 4. Reach for a small can off a shelf at eye level? Confidence reaching for a can at eye level: 100 / 100 (100 points) 5. Stand on your tip toes and reach for something above your head? Confidence standing on tip toes, reaching above head: 80 / 100 (80 points) 6. Stand on a chair and reach for something? Confidence standing on a chair and reachin / 100 (50 points) 7. Sweep the floor? Confidence sweeping the floor: 100 / 100 (100 points) 8. Walk outside the house to a car parked in the driveway? Confidence walking outside home to car in driveway: 100 / 100 (100 points) 9. Get into or out of a car? Confidence getting into or out of car: 80 / 100 (80 points) 10. Walk across a parking lot to the mall? Confidence walking across parking lot to mall: 100 / 100 (100 points) 11. Walk up or down a ramp? Confidence walking down a ramp : 80 / 100 (80 points) 12. Walk in a crowded mall where people rapidly walk past you? Confidence walking in crowded mall with people walking rapidly: 80 / 100 (80 points) 13. Are bumped into by people as you walk through the mall? Confidence when bumped into by people walking at mall: 80 / 100 (80 points) 14. Step onto or off of an escalator while you are holding onto a railing? Confidence stepping on or off escalator holding railin / 100 (100 points) 15. Step on/off escalator holding parcels so cannot hold railing? Confidence stepping on or off escalator not holding railing : 50 / 100 (50 points) 16. Walk outside on icy sidewalks? Confidence walking on icy sidewalks: 40 / 100 (40 points) The tools listed on this website do not substitute for the informed opinion of a licensed physician or other health care provider. All scores should be re- checked. Please see our full Terms of Use. Total ABC score: 1300/1600=81.3 percent Assessment Assessment/Impression Patient is very pleasant 78 yo male referred to physical therapy s/p CVA in August, TIAs and poss even in November. He presents with altered perception of midline, visual deficit in R lower hemisphere of eye presenting as kalideoscope pattern per patient report, weakness of L UE and LE, altered gait, impaired ROM R elbow (dominant arm) after childhood injury and multiple surgeries resulting in extension limited to 90 and loss of supination pronation. L LE loss of hamstring flexibility, core weakness, L lean in stance and gait, decreased awareness of L side and impaired balance reactions. He did spend 2.5 weeks in care center in [place] and relates it was not a positive experience. He has been doing 's rehab exercises with her (she has deconditioning due to multiple myeloma and treatment affects ), they both live with son Albaro who is primary caregiver, appears attentive and accompanies patient to this appt to assist in hx. 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 Vision impairment due to hx clot in R eye impairs visual compensation in gait and balance. Dysmetria noted L UE with finger to nose test. Has hx of thick blood and has now switched to Eliquis rather than warfarin, August CVA poss due to low INR. He also endorses hx of vertigo, poss position related that was severe many years ago, then again in care center had severe bout and vomited. Despite deconditioning and functional weakness, impaired vision, lack of balance and multiple limitations anticipate patient will achieve goals though may take extended period of time due to complexity. Further assessment of neuro status ( sensation, proprioception etc) to follow as warranted. Primary Functional Limitations L side weakness, endurance, impaired proprioception and perception of midline in sitting and stance, impaired gait and balance, weakness and ROM deficiets Plan of Care Rehabilitation Potential Good Rehabilitation Potential Comments very motivated, with involved director marketing communications (son) however is chronically ill with multiple myeloma and memory loss will impact ability to participate in clinic sessions . Physical Therapy Goals 1) Pt demo I with home program for safety modifications and exercise to mitigate fall risk , improve functional strength and improve balance and gait. Program to be advanced as tolerated to maximize patient gain. 2) Patient demo ability to perform floor transfers for fall recovery with and without use of chair or stool. 3) Patient demo appropriate balance reactions including ankle, hip and step strategies . 4) Patient demo ability to achieve and maintain midline in stance and sitting to reduce back and hip pain 5) Pt demo ability to dual and multitask safely in gait to assist for whom he is caregiver. 6) Pt demo ability to change speed and direction on command and in response to environment safely and with appropriate swiftness for dependent care and interaction with grandchildren Coordination/Communication With Referral Source Treatment Plan/Direct Interventions Gait Training,Manual Therapy, Neuromuscular Re-ed,Self-Care/ Home Management,Therapeutic Activities,Therapeutic Exercises Frequency/Duration 1-2x/ week x 6 weeks, then 1x/ 1-2 weeks x 6 weeks Patient Will Be Discharged From Therapy Completion of LTG(s),Skills Plateau,Independent w/HEP, Independently Progressing Evaluation Billing Untimed Code Treatment Minutes 40 Complexity Low Certification Information Initial Certification Date 02/14/24 Ending Certification Date 05/13/24 Provider Signature Required Yes Provider Signature Shows Agreement With POC & Medical Necessity Physician NPI Number Write NPI# Here Physician Comment/Change : Physician Signature & Date Requested Please Sign/Date Here
== END 2024-09-25 23:59 | disposition home or self-care (01) ==
PROVIDERS: PCP Physician Assistant Medical; Visit Provider Physician Assistant Medical
DX: Z91.81 History of falling (principal); R42 Dizziness and giddiness; Z86.73 Personal history of transient ischemic attack (TIA), and cerebral infarction without residual deficits; R53.81 Other malaise; R26.89 Other abnormalities of gait and mobility; R53.1 Weakness; Z51.89 Encounter for other specified aftercare
CPT/HCPCS: 97110; 97112; 97116; 97140; 97161

== ENCOUNTER 2024-07-07 17:38 | Emergency (ER) | payer OTHER, SELFPAY ==
--- OUTSIDE RECORDS SUMMARY | 2024-07-07 17:41 | XMS_ITS | Referral Summary ---
Author Organization [facility] Address [address] [place] [address] Care Team Providers Care Kraft Digester Operator Name Role Phone Yohana Watkins PA-C Primary Care Provider Allergies Active Allergy Reactions Criticality Noted Date Comments Amlodipine Hives Medium 01/13/2021 Contrast Dye Anaphylaxis High 05/10/2016 Cardiac arrest during stent placement Iodinated Contrast Media Anaphylaxis High 08/16/2017 Medications VITAMIN D, CHOLECALCIFEROL , PO Take 1,000 Units by mouth daily Active Nitroglycerin (NITROSTAT SL) Place 0.4 mg under the tongue every 5 minutes as needed for chest pain Active acetaminophen (TYLENOL) 325 MG tablet Take 650 mg by mouth every 6 hours as needed Active aspirin (ASA) 81 MG EC tablet Take 81 mg by mouth every morning Active pantoprazole (PROTONIX) 40 MG EC tablet Take 40 mg by mouth daily Active ketoconazole (NIZORAL) 2 % external cream Apply topically 2 times daily as needed Active Ascorbic Acid (VITAMIN C) 500 MG CAPS Take 1 capsule by mouth daily Active melatonin 3 MG tablet Take 1 mg by mouth nightly as needed Active warfarin (COUMADIN) 1 MG tablet Take 2 mg by mouth Six days a week except Sunday Active levETIRAcetam (KEPPRA) 500 MG tabletIndicatio ns:Seizure (H) Take 1 tablet (500 mg) by mouth 2 times daily 60 tablet 8 Active lisinopril (ZESTRIL) 5 MG tablet Take 5 mg by mouth 2 times daily Active ezetimibe (ZETIA) 10 MG tablet Take 10 mg by mouth daily Active metoprolol succinate ER (TOPROL-XL) 50 MG 24 hr tablet Take 50 mg by mouth every evening Active Active Problems Problem Noted Date Diagnosed Date Cerebrovascular accident (CVA), unspecified mech anism 01/13/2021 Altered mental status 06/19/2018 NSTEMI (non-ST elevated myocardial infarction) 1 Esophageal reflux 05/19/2002 Essential hypertension, benign Immunizations Name Administration Dates Next Due Dates Unk - Records Requested 03/20/2000 Pneumococcal 23 valent 02/04/2007 TD,PF 7+ (Tenivac) 05/19/2002 Social History Tobacco Use Types Packs/Day Years Used Date Smoking Tobacco: Former Cigarettes 1.5 20 0 01/30/1982 - 01/30/2002 Comments:very seldom Alcohol Use Standard Drinks/Week Comments Yes 5 (1 standard drink = 0.6 oz pur e alcohol) 1-2 drinks/ night Adolescent Education Answer Date Record ed Getting School Help Needed Not on file 04/07 Sex and Gender Information Value Date Recorded Sex Assigned at Not on file 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 Sex 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 Gender Identity Not on file Sexual Orientation Not on file 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 Not on file Not on file Not on file Last Filed Vital Signs Vital Sign Reading Time Taken Comments Blood Pressure 127/77 01/14/2021 1:27 PM CDT Pulse 71 01/14/2021 1:27 PM CDT Temperature 36.6 C (97.8 F) 01/14/2021 1:27 PM CDT Respiratory Rate 18 01/14/2021 1:27 PM CDT Oxygen Saturation 94% 01/14/2021 1:27 PM CDT Inhaled Oxygen Concentration - - Weight 88.8 kg (195 lb 12.8 oz) 01/13/2021 5:19 PM CDT Height 162.6 cm (5' 4) 01/13/2021 5:19 PM CDT Body Mass Index 33.61 01/13/2021 5:19 PM CDT Plan of Treatment Not on file Insurance [facility] MEDICARE ADVANTAGE Advance Directives For more information, please contact: [phone] * No CPR- Do NOT Intubate (Latest Code Status on File) Date Activated Date Inactivated Comments 01/13/2021 5:21 PM 01/14/2021 6:32 PM NO basic or advanced life-sustaining interventions are performed Question Answer Comments Code status determined by: Discussion with patie nt/ legal decision maker * Full Code Date Activated Date Inactivated Comments 06/19/2018 9:28 PM 06/20/2018 7:09 PM Question Answer Comments Code status determined by: Other (please documen t) * Full Code Date Activated Date Inactivated Comments 04/25/2017 12:11 PM 06/19/2018 6:20 PM * Full Code Date Activated Date Inactivated Comments 04/24/2017 2:55 PM 04/25/2017 12:11 PM Care Teams Kraft Digester Operator Relationship Specialty Start Date End Date Yohana Watkins PA-C [facility] [id number], [place] [id number] PCP - General Physician Recreational Specialist 01/13/21
--- OUTSIDE RECORDS SUMMARY | 2024-07-07 17:41 | XMS_ITS | Clinical Summary ---
Author Organization [facility] Address [address] 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 Gender Identity Not on file Sexual Orientation [...] Plan of Treatment Not on file Insurance [facility] MEDICARE ADVANTAGE Advance Directives For more information, please contact: [phone] * No CPR- Do NOT Intubate (Latest Code Status on File) Date Activated Date Inactivated Comments 01/13/2021 5:21 PM 01/14/2021 6:32 PM NO basic or advanced life-sustaining interventions are performed Question Answer Comments Code status determined by: Discussion with vinnye nt/ legal decision maker * Full Code Date Activated Date Inactivated Comments 06/19/2018 9:28 PM 06/20/2018 7:09 PM Question Answer Comments Code status determined by: Other (please yfnn t) * Full Code Date Activated Date Inactivated Comments 04/25/2017 12:11 PM 06/19/2018 6:20 PM * Full Code Date Activated Date Inactivated Comments 04/24/2017 2:55 PM 04/25/2017 12:11 PM Care Teams Armhole Raiser Lockstitch Relationship Specialty Start Date End Date Yohana Watkins PA-C [facility] [address], [place] [address] PCP - General Physician Records Management Coordinator 01/13/21
--- OUTSIDE RECORDS SUMMARY | 2024-07-07 17:41 | XMS_ITS | Clinical Summary ---
Author Organization [facility]) [facility] & [facility] Address [place], [place] [address] Care Team Providers Care Partner Cco Name Role Phone BaldwinDonya Jeff Primary Care Provider [phone] Allergies Active Allergy Reactions Criticality Noted Date Comments Amlodipine Hives High 01/13/2021 Iodinated Contrast Media Anaphylaxis,Other - Describe In Comment Field High 05/10/2016 Cardiac arrest during stent placement Vjkqtrd-Rct-Put Reductase Inhibitors Other - Describe In Comment Field High 01/03/2022 Medications meclizine (ANTIVERT) 25 mg tabletIndication s:Vertigo Take 1 Tablet (25 mg) by mouth 3 times daily if needed for Vertigo. 30 Tablet 10/03/2023 Active Social History Tobacco Use Types Packs/Day Years Used Date Smoking Tobacco: Never Assessed Sex and Gender Information Value Date Recorded Sex Assigned at Not on file Legal Sex Male 10:23 AM CDT Gender Identity Not on file Sexual Orientation Not on file Last Filed Vital Signs Vital Sign Reading Time Taken Comments Blood Pressure 118/72 10/03/2023 4:07 AM CDT Pulse 58 10/03/2023 4:07 AM CDT Temperature 36.6 C (97.8 F) 10/02/2023 11:42 PM CDT Respiratory Rate 18 10/02/2023 11:42 PM CDT Oxygen Saturation 95% 10/03/2023 4:07 AM CDT Inhaled Oxygen Concentration - - Weight 93 kg (205 lb) 10/02/2023 11:40 PM CDT Height 167.6 cm (5' 6) 10/02/2023 11:40 PM CDT Body Mass Index 33.09 10/02/2023 11:40 PM CDT Plan of Treatment Health Maintenance Due Date Last Done Comments Tdap 1956 Depression screening for age 12+ 1957 BMI (ht and wt on same day) for age 18+ 1963 Hepatitis C screening for ag e 18-79 1963 Tetanus booster 1965 Zoster (shingles) series for age 50+ (1 of 2) 1995 Medicare Wellness for age 65+ 2010 Pneumococcal series for age 50+ (1 of 1 - PCV) 2010 RSV vaccine for adults or (1 - 1-dose 75+ series) 2020 COVID-19 vaccine series (2023- season) 2024 05/18/2022, 05/17/2021, 09/11/2020, Additional history exists Influenza for age 65+ 03/02/2024 Insurance [employer] MEDICARE PART B HB ONLY Advance Directives Documents on File Type Date Recorded Patient Asset Protection Officer Expl anation POLST 09/27/2023 Care Teams Partner Cco Relationship Specialty Start Date End Date Donya Baldwin PCP - General Family Practice 07/02/13
--- OUTSIDE RECORDS SUMMARY | 2024-07-07 17:42 | XMS_ITS | Continuity of Care Document ---
Author Organization [facility] Address [address] [place] [address] Care Team Providers Care Wood Gang Sawyer Name Role Phone Elsewhere, Pcp Primary Care Provider Unavailabl e Source Comments Patient records contain information from all sites at [facility]. For routine questions regarding patient records, call [phone] during business hours, M-F 8:00 AM - 5:00 PM Central Time. Record requests for emergency care only can be directed to [phone] at any time.[facility] Encounters Date Type Department Care Team Description 06/16/2024 8:16 AM WOOD GANG SAWYER - 06/16/2024 11:59 PM WOOD GANG SAWYER Hospital Encounter Department of Cardiovascular Diseases in [place], [place] [address] [place] [address] Aaron Galan M.D. Aftercare Cardiac Defibrillator Discharge Disposition: Home or Self Care 06/16/2024 10:00 AM WOOD GANG SAWYER Office Visit Department of Cardiovascular Medicine in [place], [place] [address] [place] [address] Arminda Schaeffer M.D. Beat Premature Ventricular (Primary Dx); Presence Cardioverter- Defibrillator (ICD And AICD); Tachycardia Ventricular Nonsustained (HCC); Coronary Artery Disease With Stable Angina (HCC); Aneurysm Coronary Artery 06/12/2024 2:15 PM WOOD GANG SAWYER Clinical Communication Virtual Review in [place], [place] [address] [place] [address] Pre-visit Intake 05/15/2024 Clinical Communication Department of Cardiovascular Medicine in [place], [place] [address] [place] [phone] eNha Gardner M.D. Update on blood pressures and med 05/01/2024 Documentation Department of Cardiovascular Medicine in [place], [place] [address] [place] [phone] Neha Gardner M.D. 05/01/2024 Orders Only Department of Cardiovascular Medicine in [place], [place] [address] [place] [phone] Neha Gardner M.D. 03/24/2024 4:30 PM CDT Office Visit Department of Cardiovascular Medicine in [place], [place] [address] [place] [phone] Kemal Miller M.D. Presence Cardioverter- Defibrillator (ICD And AICD) (Primary Dx) 03/21/2024 Documentation Division of Cardiovascular Diseases in [address] [address] Kemal Miller M.D. 03/21/2024 Clinical Communication Department of Cardiovascular Medicine in [place], [place] [address] [place] [phone] Caramel Coloring OperatorPartha M.D. 03/21/2024 7:51 AM CDT - 03/21/2024 11:59 PM CDT Hospital Encounter Department of Cardiovascular Diseases in [place], [place] [address] [place] [phone] Wesley Varghese M.D., Ph.D. Discharge Disposition: Home or Self Care 03/20/2024 Orders Only Department of Cardiovascular Medicine in [place], [place] [address] [place] [phone] Edna Harirs R.N. Aftercare Cardiac Defibrillator (Primary Dx) 03/20/2024 Clinical Communication Department of Cardiovascular Medicine in [address] [address] Kemal Miller M.D. DEVICE REGISTRATION (ICD IMPLANT) 03/20/2024 9:56 AM CDT - 03/20/2024 11:59 PM CDT Hospital Encounter Department of Cardiovascular Diseases in [address] [address] Kemal Miller M.D. Aftercare Cardiac Defibrillator Discharge Disposition: Home or Self Care 03/19/2024 Orders Only Division of Cardiovascular Diseases in [address] [address] Vickie Leavitt R.N. Aftercare Cardiac Defibrillator (Primary Dx) 03/19/2024 12:19 PM CDT Anesthesia Event Division of Cardiovascular Diseases in [address] [address] Edu Escalona APRN, DARIELA, D.N.P. Catrachita Farah APRN, CRNA, D.N.P. 03/19/2024 12:35 PM CDT - 03/19/2024 4:05 PM CDT Surgery Division of Cardiovascular Diseases in [address] [address] Kemal Miller M.D. DIAGNOSTIC EPS 03/19/2024 10:38 AM CDT - 03/19/2024 6:30 PM CDT Hospital Encounter Division of Cardiovascular Diseases in [address] [address] Kemal Miller M.D. Tachycardia Ventricular Nonsustained (HCC) Discharge Disposition: Home or Self Care 03/18/2024 3:00 PM CDT Office Visit Department of Cardiovascular Medicine in [place], [place] [address] [place] [phone] Neha Gardner M.D. Tachycardia Ventricular Nonsustained (HCC) (Primary Dx); Coronary Artery Disease With Stable Angina (HCC); Hyperlipidemia 03/18/2024 8:18 AM CDT - 03/18/2024 10:23 AM CDT Hospital Encounter Department of Cardiovascular Diseases in [place], [place] [address] [place] [phone] Kemal Miller M.D. Tachycardia Ventricular Nonsustained (HCC) Discharge Disposition: Home or Self Care 03/18/2024 11:57 AM CDT - 03/18/2024 11:59 PM CDT Hospital Encounter Department of Radiology, [facility] in [place], [place] [address] [place] [address] Kemal Miller M.D. Tachycardia Ventricular Nonsustained (HCC) Discharge Disposition: Home or Self Care 03/18/2024 10:24 AM CDT - 03/18/2024 11:56 AM CDT Hospital Encounter Department of Laboratory Medicine and Pathology, [facility] in [place], [place] [address] [place] [address] Kemal Miller M.D. Tachycardia Ventricular Nonsustained (HCC) Discharge Disposition: Home or Self Care 03/18/2024 1:00 PM CDT Office Visit Department of Cardiovascular Medicine in [place], [place] [address] [place] [phone] Katie Harvey APRN, C.N.P. 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 Ablation Questions 02/14/2024 Clinical Communication Department of Cardiovascular Medicine in [place], [place] [address] [place] [phone] Neha Gardner M.D. Follow-up (Labs today) 02/08/2024 Clinical Communication Department of Cardiovascular Medicine in [place], [place] [address] [place] [phone] Neha Gardner M.D. Blood Pressure (Blood pressure log) 01/18/2024 Clinical Communication Department of Cardiovascular Medicine in [place], [place] [address] [place] [phone] Neha Gardner M.D. Follow-up 01/15/2024 4:26 PM CDT - 01/15/2024 11:59 PM CDT Hospital Encounter Department of Laboratory Medicine and Pathology, [facility] in [place], [place] [address] [place] [phone] Neha Gardner M.D. Ectopy Ventricular Discharge Disposition: Home or Self Care 01/15/2024 3:00 PM CDT Office Visit Department of Cardiovascular Medicine in [place], [place] [address] [place] [phone] Neha Gardner M.D. 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 Med Question 01/07/2024 Orders Only Department of Cardiovascular Medicine in [place], [place] [address] [place] [phone] Neha Gardner M.D. Tachycardia Ventricular Nonsustained (HCC) (Primary Dx); Coronary Artery Disease With Stable Angina (HCC) 01/01/2024 Clinical Communication Department of Cardiovascular Medicine in [place], [place] [address] [place] [phone] Vida Guido, RSashaNSasha 01/01/2024 Documentation Division of Cardiovascular Diseases in [address] [phone] Kemal Miller M.D. 01/01/2024 Orders Only Division of Cardiovascular Diseases in [place], [place] [address] [place] [address] Kemal Miller M.D. 12/31/2023 Clinical Communication Department of Cardiovascular Medicine in [place], [place] [address] [place] [address] Neha Gardner M.D. EP study +/- ICD implantation still on? 12/19/2023 Clinical Communication Department of Cardiovascular Medicine in [place], [place] [address] [place] [address] Neha Gardner M.D. Follow-up 12/18/2023 2:00 PM CDT Office Visit Department of Cardiovascular Medicine in [place], [place] [address] [place] [address] Neha Gardner M.D. Ectopy Ventricular (Primary Dx); Tachycardia Ventricular Nonsustained (HCC); Hyperlipidemia; Aneurysm Coronary Artery; 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 Failure (HCC) 12/18/2023 11:51 AM CDT - 12/18/2023 11:59 PM CDT Hospital Encounter Department of Cardiovascular Diseases in [place], [place] [address] [place] [address] Kemal Miller M.D. Tachycardia Ventricular Nonsustained (HCC) Discharge Disposition: Home or Self Care 12/04/2023 Clinical Communication Department of Cardiovascular Medicine in [place], [place] [address] [place] [address] Neha Gardner M.D. Follow-up 11/08/2023 Clinical Communication Department of Cardiovascular Medicine in [place], [place] [address] [place] [address] Neha Gardner M.D. Med Question 11/07/2023 Clinical Communication Department of Cardiovascular Medicine in [place], [place] [address] [place] [phone] Caramel Coloring OperatorPartha M.D. 10/09/2023 Clinical Communication Department of Cardiovascular Medicine in [place], [place] [address] [place] [address] Jolanta Carranza R.N. 09/26/2023 10:00 AM CDT Virtual Visit Department of Cardiovascular Medicine in [place], [place] [address] [place] [address] Neha Gardner M.D. 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 Coronary Artery Disease With Stable Angina (HCC) (Primary Dx) 08/30/2023 Clinical Communication Department of Cardiovascular Medicine in [place], [place] [address] [place] [phone] Arminda Schaeffer M.D. After Visit Question (EP study) 08/09/2023 9:00 AM WOOD GANG SAWYER Comprehensive Visit Department of Cardiovascular Medicine in [place], [place] [address] [place] [address] Kemal Miller M.D. Tachycardia Ventricular Nonsustained (HCC) (Primary Dx); Ectopy Ventricular; Cardiomyopathy Ischemic; Coronary Artery Disease With Stable Angina (HCC) 07/06/2023 10:50 AM WOOD GANG SAWYER - 07/06/2023 11:04 AM WOOD GANG SAWYER Hospital Encounter Department of Laboratory Medicine and Pathology, [facility] in [place], [place] [address] [place] [address] Neha Gardner M.D. Ectopy Ventricular; Cardiomyopathy Ischemic; Coronary Artery Disease With Stable Angina (HCC) Discharge Disposition: Home or Self Care 07/06/2023 12:46 PM WOOD GANG SAWYER - 07/06/2023 11:59 PM WOOD GANG SAWYER Hospital Encounter Department of Cardiovascular Diseases in [place], [place] [address] [place] [address] Neha Gardner M.D. Ectopy Ventricular; Cardiomyopathy Ischemic; Coronary Artery Disease With Stable Angina (HCC) Discharge Disposition: Home or Self Care 07/06/2023 11:05 AM WOOD GANG SAWYER - 07/06/2023 12:45 PM WOOD GANG SAWYER Hospital Encounter Department of Radiology, [address] [address] Neha Gardner M.D. Ectopy Ventricular; Cardiomyopathy Ischemic; Coronary Artery Disease With Stable Angina (HCC) Discharge Disposition: Home or Self Care 06/15/2023 Refill Department of Cardiovascular Medicine in [address] [address] Neha Gardner M.D. Med Refill 06/15/2023 Clinical Communication Department of Cardiovascular Medicine in [address] [address] Caramel Coloring OperatorPartha M.D. Int cons (Int cons/Evaluate for VT ablation) 06/15/2023 8:14 AM WOOD GANG SAWYER - 06/15/2023 9:49 AM WOOD GANG SAWYER Hospital Encounter Department of Laboratory Medicine and Pathology, [address] [address] Neha Gardner M.D. Coronary Artery Disease With Stable Angina (HCC); Ectopy Ventricular; 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 Failure (HCC); Hyperlipidemia Discharge Disposition: Home or Self Care 06/15/2023 9:50 AM WOOD GANG SAWYER - 06/15/2023 11:59 PM WOOD GANG SAWYER Hospital Encounter Department of Radiology, [facility] in [address] [address] Neha Gardner M.D. Coronary Artery Disease With Stable Angina (HCC); Ectopy Ventricular; 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 Failure (HCC); Hyperlipidemia Discharge Disposition: Home or Self Care 06/15/2023 1:00 PM WOOD GANG SAWYER Office Visit Department of Cardiovascular Medicine [address] [address] Neha Gardner M.D. Ectopy Ventricular (Primary Dx); Cardiomyopathy Ischemic; Coronary Artery Disease With Stable Angina (HCC); Aneurysm Coronary Artery; Hyperlipidemia 06/14/2023 9:15 AM WOOD GANG SAWYER Clinical Communication Virtual Review in [place], [place] [address] [place] [address] Pre-visit Intake 05/30/2023 9:00 AM WOOD GANG SAWYER Virtual Visit Department of Cardiovascular Medicine in [place], [place] [address] [place] [address] Neha Gardner M.D. Coronary Artery Disease With Stable Angina (HCC) (Primary Dx); Ectopy Ventricular; 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 Failure (HCC); Hyperlipidemia 05/29/2023 Orders Only Department of Cardiovascular Medicine in [place], [place] [address] [place] [address] Neha Gardner M.D. Ectopy Ventricular (Primary Dx) 05/28/2023 Clinical Communication Department of Cardiovascular Medicine in [address] [address] Neha Gardner M.D. Notification criteria 05/23/2023 Orders Only Department of Cardiovascular Medicine in [address] [address] Manpreet Lanier M.D. 05/23/2023 12:49 PM WOOD GANG SAWYER - 05/23/2023 11:59 PM WOOD GANG SAWYER Hospital Encounter Department of Cardiovascular Diseases in [address] [address] Neha Gardner M.D. Coronary Artery Disease With Stable Angina (HCC); Ectopy Ventricular; 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 Failure (HCC); Hyperlipidemia Discharge Disposition: Home or Self Care 05/23/2023 12:13 PM WOOD GANG SAWYER - 05/23/2023 12:48 PM WOOD GANG SAWYER Hospital Encounter Department of Laboratory Medicine and Pathology, [facility] in [address] [address] Neha Gardner M.D. Coronary Artery Disease With Stable Angina (HCC); Ectopy Ventricular; 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 Failure (HCC); Hyperlipidemia Discharge Disposition: Home or Self Care 05/23/2023 11:17 AM WOOD GANG SAWYER - 05/23/2023 12:12 PM WOOD GANG SAWYER Hospital Encounter Department of Cardiovascular Diseases in [place], [place] [address] [place] [address] Neha Gardner M.D. Coronary Artery Disease With Stable Angina (HCC); Ectopy Ventricular; 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 Failure (HCC); Hyperlipidemia Discharge Disposition: Home or Self Care 04/11/2023 Clinical Communication Department of Cardiovascular Medicine in [place], [place] [address] [place] [address] Neha Gardner M.D. Echo 08/07/2022 8:50 AM WOOD GANG SAWYER - 08/07/2022 11:59 PM WOOD GANG SAWYER Hospital Encounter Department of Laboratory Medicine and Pathology, [place], [place] [address] [place] [address] Neha Gardner M.D. Coronary Artery Disease With Stable Angina (HCC) Discharge Disposition: Home or Self Care 08/05/2022 Orders Only Department of Cardiovascular Medicine in [address] [address] Neha Gardner M.D. Coronary Artery Disease With Stable Angina (HCC) (Primary Dx) 06/28/2022 Episode Changes Department of Cardiovascular Medicine in [address] [address] Donna Swift 06/23/2022 8:30 AM WOOD GANG SAWYER Office Visit Department of Cardiovascular Medicine in [place], [place] [address] [place] [phone] Neha Gardner M.D. Coronary Artery Disease With Stable Angina (HCC) (Primary Dx); Ectopy Ventricular; 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 Failure (HCC); Hyperlipidemia 06/09/2022 11:15 AM WOOD GANG SAWYER - 06/09/2022 11:53 AM WOOD GANG SAWYER Hospital Encounter Department of Laboratory Medicine and Pathology, [place], [place] [address] [place] [address] Neha Gardner M.D. Cardiomyopathy Ischemic; Coronary Artery Disease With Stable Angina (HCC); Aneurysm Coronary Artery; Ectopy Ventricular; Hyperlipidemia Discharge Disposition: Home or Self Care 06/09/2022 2:34 PM WOOD GANG SAWYER - 06/09/2022 11:59 PM WOOD GANG SAWYER Hospital Encounter Department of Cardiovascular Diseases in [place], [place] [address] [place] [address] Neha Gardner M.D. Cardiomyopathy Ischemic; Coronary Artery Disease With Stable Angina (HCC); Aneurysm Coronary Artery; Ectopy Ventricular; Hyperlipidemia Discharge Disposition: Home or Self Care 06/09/2022 11:54 AM WOOD GANG SAWYER - 06/09/2022 2:33 PM WOOD GANG SAWYER Hospital Encounter Department of Cardiovascular Diseases in [place], [place] [address] [place] [address] Neha Gardner M.D. Cardiomyopathy Ischemic; Coronary Artery Disease With Stable Angina (HCC); Aneurysm Coronary Artery; Ectopy Ventricular; Hyperlipidemia Discharge Disposition: Home or Self Care 06/08/2022 9:45 AM WOOD GANG SAWYER Clinical Communication Virtual Review in [place], [place] [address] [place] [address] Pre-visit Intake 05/29/2022 Clinical Communication Department of Cardiovascular Medicine in [place], [place] [address] [place] [phone] Caramel Coloring OperatorPartha M.D. 05/22/2022 8:15 AM WOOD GANG SAWYER Clinical Communication Virtual Review in [address] [address] 05/05/2022 Orders Only Department of Cardiovascular Medicine in [place], [place] [address] [place] [address] Neha Gardner M.D. Cardiomyopathy Ischemic (Primary Dx); Coronary Artery Disease With Stable Angina (HCC); Aneurysm Coronary Artery; Ectopy Ventricular; Hyperlipidemia 05/04/2022 Clinical Communication Department of Cardiovascular Medicine in [place], [place] [address] [place] [address] Neha Gardner M.D. Follow-up 04/04/[address] [address] Yohana Watkins P.A. 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 (HCC) (Primary Dx); Abdominal Aortic Aneurysm Without Rupture Unspecified (HCC); Aneurysm Coronary Artery 08/26/2021 Refill Department of Cardiovascular Medicine in [place], [place] [address] [place] [phone] Neha Gardner M.D. Med Refill 08/14/2021 Refill Department of Cardiovascular Medicine in [place], [place] [address] [place] [address] Neha Gardner M.D. Med Refill 08/01/2021 Remote Monitoring Remote Patient Monitoring [facility] [address] [place] [address] Makenzie Meeks Complex Care Coordination (July Bill ) 07/15/2021 Remote Monitoring Remote Patient Monitoring [facility] [address] [place] [address] Makenzie Meeks Graduation (Patient graduated from the Remote Monitoring program. ) 07/15/2021 Remote Monitoring Remote Patient Monitoring [facility] [address] [place] [address] Kathryn Avitia, R.N. COVID-19 Remote Patient Monitoring; Graduation 07/14/2021 Remote Monitoring Remote Patient Monitoring [facility] [address] [place] [address] Karen Maxwell, R.N. COVID-19 Remote Patient Monitoring; Symptom Assessment 07/14/2021 Remote Monitoring Remote Patient Monitoring [facility] [address] [place] [address] Mabel Brambila, M.S.N., R.N. COVID-19 Remote Patient Monitoring; Symptom Assessment 07/13/2021 Remote Monitoring Remote Patient Monitoring [facility] [address] [place] [address] Joo Mckeon, R.N., C.M.S.R.N., [facility] COVID-19 Remote Patient Monitoring; Symptom Assessment 07/10/2021 Refill Department of Cardiovascular Medicine in [place], [place] [address] [place] [address] Neha Gardner M.D. Med Refill 07/07/2021 Remote Monitoring Remote Patient Monitoring [facility] [address] [place] [address] Megan Clinton Welcome Call (Welcome call completed (automatic vulcanizing lead operator), equipment ordered before 1 pm today, scheduled to arrive 07/08); Patient Education (Complex Care/COVID19, welcome letter, and terms of service sent 07/07) 07/07/2021 Episode Changes Remote Patient Monitoring [facility] [address] [place] [address] Megan Clinton Nereyda 07/07/2021 Remote Monitoring Remote Patient Monitoring [facility] [address] [place] [address] Karen Maxwell, RSashaN. COVID-19 Remote Patient Monitoring; Intake Assessment 07/06/2021 Episode Changes Remote Patient Monitoring [facility] [address] [place] [address] Kalee Hilton R.N. 07/06/2021 Clinical Communication Division of [facility], [place], [place] [address] [place] [phone] Fabian Mckinney M.S., R.N. Results ([facility]) 07/05/2021 External Outreach Department of Family Medicine in [place], [place] [address] [place] [address] Tana Brunner M.D. Contact With And (Suspected) Exposure To COVID-19 (Primary Dx) Discharge Disposition: Home or Self Care 07/05/2021 2:40 PM WOOD GANG SAWYER Admin Visit Urgent Care, [facility], in [place], [place] [address] [place] [address] 07/04/2021 Clinical Communication Division of [facility], [place], [place] [address] [place] [phone] Marciano Kelly R.N. 03/29/2021 Orders Only RST PCP HL[facility] RXOANAT Yohana Chavez M.D. 03/22/2021 9:00 AM CDT Ancillary Procedure Department of Radiology in [place], [place] [address] [place] [phone] Lauren Portillo M.D. Stroke Cerebrovascular Accident Personal History 03/22/2021 9:00 AM CDT Ancillary Procedure Department of Radiology in [place], [place] [address] [place] [phone] Lauren Portillo M.D. Stroke Cerebrovascular Accident Personal History 03/22/2021 11:30 AM CDT Comprehensive Visit Department of Neurology in [place], [place] [address] [place] [phone] Lauren Portillo M.D. Cerebrovascular Disease (Primary Dx); Spells Neurological (HCC) 03/21/2021 9:40 AM CDT Clinical Communication Virtual Review in [place], [place] [address] [place] [address] Neha Gardner M.D. Pre-visit Intake 01/19/[address] [address] Yohana Watkins P.A. Stroke (HCC) (Primary Dx) 01/07/2021 Documentation Department of Cardiovascular Medicine in [place], [place] [address] [place] [phone] Neha Gardner M.D. 01/07/2021 Orders Only Department of Cardiovascular Medicine in [place], [place] [address] [place] [phone] Neha Gardner M.D. Stroke (HCC) (Primary Dx) 07/12/2020 Refill Department of Cardiovascular Medicine in [place], [place] [address] [place] [phone] Neha Gardner M.D. Med Refill 06/16/2020 4:00 PM WOOD GANG SAWYER Office Visit Department of Cardiovascular Medicine in [address] [address] Neha Gardner M.D. 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 Beat Premature Ventricular; Cardiomyopathy Ischemic; Coronary Artery Disease With Stable Angina (HCC); Hyperlipidemia Discharge Disposition: Home or Self Care 06/16/2020 11:43 AM WOOD GANG SAWYER - 06/16/2020 11:59 PM [facility] Hospital Encounter Department of Cardiovascular Diseases in [place], [place] [address] [place] [phone] Neha Gardner M.D. Beat Premature Ventricular; Cardiomyopathy Ischemic; Coronary Artery Disease With Stable Angina (HCC); Hyperlipidemia Discharge Disposition: Home or Self Care 06/14/2020 Orders Only Department of Cardiovascular Medicine in [place], [place] [address] [place] [phone] Neha Gardner M.D. Cardiomyopathy Ischemic (Primary Dx); Beat Premature Ventricular; Coronary Artery Disease With Stable Angina (HCC); Hyperlipidemia 06/11/2020 Orders Only Department of Cardiovascular Medicine in [address] [phone] Neha Gardner M.D. 02/09/2020 Refill Department of Cardiovascular Medicine in [address] [phone] Neha Gardner M.D. Med Refill 12/09/2019 Clinical Communication Department of Cardiovascular Medicine in [address] [phone] Neha Gardner M.D. Med Question (Communication) 08/26/2019 Refill Department of Cardiovascular Medicine in [address] [phone] Neha Gardner M.D. Med Refill; Med Refill 08/14/2019 Refill Department of Cardiovascular Medicine in [place], [place] [address] [place] [phone] Neha Gardner M.D. Med Refill 08/12/2019 Clinical Communication Department of Cardiovascular Medicine in [address] [phone] Neha Gardner M.D. Results 08/07/2019 Clinical Communication Department of Cardiovascular Medicine in [address] [phone] Neha Gardner M.D. New Medication Clarification 07/30/2019 Clinical Communication Department of Cardiovascular Diseases in [place], [place] [address] [place] [phone] Gisela Galdamez CRAT 07/21/2019 9:19 AM WOOD GANG SAWYER - 07/21/2019 11:59 PM WOOD GANG SAWYER Hospital Encounter Department of Cardiovascular Diseases in [place], [place] [address] [place] [address] Neha Gardner M.D. Failure Heart (HCC); Beat Premature Ventricular; Cardiomyopathy Ischemic Discharge Disposition: Home or Self Care 07/09/2019 Orders Only Department of Cardiovascular Medicine in [place], [place] [address] [place] [phone] Neha Gardner M.D. Cardiomyopathy Ischemic (Primary Dx) 07/08/2019 2:00 PM WOOD GANG SAWYER Comprehensive Visit Department of Cardiovascular Medicine in [place], [place] [address] [place] [phone] Neha Gardner M.D. 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 Cardiomyopathy Ischemic; Failure Heart (HCC); Chronic Kidney Disease Stage 3 Glomerular Filtration Rate 30 To 59; Hyperlipidemia; Aneurysm Coronary Artery; Coronary Artery Disease With Stable Angina (HCC) Discharge Disposition: Home or Self Care 07/08/2019 10:20 AM WOOD GANG SAWYER - 07/08/2019 11:59 PM [facility] GANG SAW[facility] Hospital Encounter Department of Laboratory Medicine and Pathology, [facility] in [place], [place] [address] [place] [address] Neha Gardner M.D. Cardiomyopathy Ischemic; Failure Heart (HCC); Chronic Kidney Disease Stage 3 Glomerular Filtration Rate 30 To 59; Hyperlipidemia; Aneurysm Coronary Artery; Coronary Artery Disease With Stable Angina (HCC) Discharge Disposition: Home or Self Care 07/04/2019 Clinical Communication Department of Cardiovascular Medicine in [place], [place] [address] [place] [phone] Neha Gardner M.D. 06/26/2019 Clinical Communication Department of Cardiovascular Medicine in [place], [place] [address] [place] [phone] Neha Gardner M.D. 06/03/2019 Clinical Communication Department of Cardiovascular Medicine in [place], [place] [address] [place] [phone] Neha Gardner M.D. Appointment 01/21/2019 4:00 PM CDT Office Visit Department of Cardiovascular Medicine in [address] [phone] Neha Gardner M.D. Cardiomyopathy Ischemic (Primary Dx); Failure Heart (HCC); Chronic Kidney Disease Stage 3 Glomerular Filtration Rate 30 To 59; Hyperlipidemia; Aneurysm Coronary Artery; Coronary Artery Disease With Stable Angina (HCC) 01/21/2019 1:14 PM CDT - 01/21/2019 11:59 PM CDT Hospital Encounter Department of Cardiovascular Diseases in [address] [phone] Neha Gardner M.D. Coronary Artery Disease (Unspecified); Cardiomyopathy Ischemic; Pain Chest; Dyspnea On Exertion; Snoring; Apnea Sleep Obstructive Discharge Disposition: Home or Self Care 01/07/2019 8:44 AM CDT - 01/07/2019 12:18 PM CDT Hospital Encounter Department of Radiology, [facility], in [place], [place] [address] [place] [phone] Neha Gardner M.D. Coronary Artery Disease (Unspecified); Cardiomyopathy Ischemic; Pain Chest; Dyspnea On Exertion; Snoring; Apnea Sleep Obstructive Discharge Disposition: Home or Self Care 01/07/2019 12:19 PM CDT - 01/07/2019 11:59 PM CDT Hospital Encounter Department of Radiology, [facility], in [place], [place] [address] [place] [phone] Neha Gardner M.D. Coronary Artery Disease (Unspecified); Cardiomyopathy Ischemic; Pain Chest; Dyspnea On Exertion; Snoring; Apnea Sleep Obstructive Discharge Disposition: Home or Self Care 12/31/2018 7:20 AM CDT - 12/31/2018 11:59 PM CDT Hospital Encounter Department of Radiology, [facility] in [place], [place] [address] [place] [address] Neha Gardner M.D. Coronary Artery Disease (Unspecified); Hyperlipidemia; Fatigue; Impaired Fasting Glucose; Cardiomyopathy Ischemic Discharge Disposition: Home or Self Care 12/31/2018 6:50 AM CDT - 12/31/2018 7:19 AM CDT Hospital Encounter Department of Laboratory Medicine and Pathology, [facility] in [place], [place] [address] [place] [phone] Neha Gardner M.D. Coronary Artery Disease (Unspecified); Hyperlipidemia; Fatigue; Impaired Fasting Glucose; Cardiomyopathy Ischemic Discharge Disposition: Home or Self Care 12/31/2018 9:30 AM CDT Office Visit Department of Cardiovascular Medicine in [place], [place] [address] [place] [phone] Neha Gardner M.D. 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 Coronary Artery Disease (Unspecified); Hyperlipidemia; Fatigue; Impaired Fasting Glucose; Cardiomyopathy Ischemic Discharge Disposition: Home or Self Care 12/16/2018 Orders Only Department of Cardiovascular Medicine in [place], [place] [address] [place] [phone] Neha Gardner M.D. Coronary Artery Disease (Unspecified) (Primary Dx); Hyperlipidemia; Fatigue; Impaired Fasting Glucose; Cardiomyopathy Ischemic 12/13/2018 Clinical Communication Department of Cardiovascular Medicine in [place], [place] [address] [place] [address] Neha Gardner M.D. Appointment 06/14/2018 Refill Department of Cardiovascular Medicine in [place], [place] [address] [place] [address] Neha Gardner M.D. Med Refill 06/04/2017 6:13 AM WOOD GANG SAWYER - 06/12/2017 1:56 PM [facility] GANG SAWYER Hospital Encounter HX [facility] LEONOR FORDE 5C 06/04/2017 5:10 AM WOOD GANG SAWYER - 06/04/2017 11:59 PM [facility] GANG SAWYER Hospital Encounter HX NO MAPPING Natasha Duarte 06/04/2017 7:50 AM WOOD GANG SAWYER Telemedicine Department of Anesthesiology 06/01/2017 - 06/01/2017 11:59 PM WOOD GANG SAWYER Hospital Encounter HX NO MAPPING Provider, Historical 05/08/2017 - 05/08/2017 11:59 PM [facility] GANG SAWYER Hospital Encounter HX NO MAPPING Provider, Historical 05/08/2017 3:16 PM WOOD GANG SAWYER - 05/08/2017 11:59 PM [facility] GANG SAWYER Hospital Encounter HX [facility] Elvin Moreno M.D. 12/13/2016 - 12/13/2016 11:59 PM CDT Hospital Encounter HX NO MAPPING 05/02/2016 - 05/02/2016 11:59 PM CDT Hospital Encounter HX NO MAPPING Provider, Historical 03/21/2016 - 03/21/2016 11:59 PM CDT Hospital Encounter HX NO MAPPING 02/16/2016 - 02/16/2016 11:59 PM CDT Hospital Encounter HX NO MAPPING 01/27/2016 - 01/27/2016 11:59 PM CDT Hospital Encounter HX NO MAPPING 01/27/2016 - 01/27/2016 11:59 PM CDT Hospital Encounter HX NO MAPPING 01/13/2016 11:26 PM CDT - 01/14/2016 11:04 PM CDT Hospital Encounter HX RST KRISTEN 2C 01/13/2016 5:36 PM CDT - 01/13/2016 11:26 PM CDT Hospital Encounter HX [facility]ERG[facility]Y TRAUMA UNI Provider, Historical Allergies Active Allergy Reactions Criticality Noted Date Comments Iodinated Contrast Media Anaphylaxis High 05/10/2016 Cardiac arrest during stent placement Amlodipine Hives (Reselect Reaction) High 01/13/2021 Cyfjpmr-Lpn-Efs Reductase Inhibitors Other (see comments) Medium 01/03/2022 Body/Joint Aches Iothalamate Sodium Other (see comments) High 022 Contrast Dye Medications acetaminophen (TYLENOL) 325 mg tablet Take 650 mg by mouth as needed. Active ascorbic acid, vitamin C, 500 mg capsule Take 1 capsule by mouth daily. Active levETIRAcetam (KEPPRA) 500 mg tablet Take 500 mg by mouth 2 (two) times a day. 8 Active pantoprazole (PROTONIX) 40 mg EC tablet Take 40 mg by mouth every morning before breakfast. Active ezetimibe (ZETIA) 10 mg tablet Take 1 tablet (10 mg total) by mouth daily. 30 tablet 11 [address] Active [address] tablet Take 81 mg by mouth daily. Active nitroglycerin (NITROSTAT) 0.4 mg SL tablet DISSOLVE ONE TABLET UNDER THE TONGUE EVERY 5 MINUTES NEEDED FOR CHEST PAIN. DO NOT EXCEED A TOTAL OF 3 DOSES IN 15 MINUTES 25 tablet 3 2 Active rosuvastatin (CRESTOR) 10 mg tablet Take 10 mg by mouth 3 (three) times a week. Every Sunday, Sunday, and Sunday 30 tablet 11 4 Active apixaban (ELIQUIS) 5 mg tablet Take 5 mg by mouth 2 (two) times a day. Active meclizine (ANTIVERT) 25 mg tablet Take 25 mg by mouth 3 (three) times a day as needed for dizziness. Active cholecalciferol (Vitamin D3) 125 mcg (5,000 Unit) tablet Take 1 tablet (125 mcg total) by mouth daily. 4 Active amiodarone (Pacerone) 200 mg tablet Take 0.5 tablets (100 mg total) by mouth daily. 4 Active torsemide (Demadex) 5 mg tablet Take 1 tablet (5 mg total) by mouth daily. Continue rotation list below: Day 1 - 1 Tablet Day 2 - 2 Tablets 90 tablet 4 Active carvediloL (Coreg) 6.25 mg tablet TAKE 1 TABLET BY MOUTH TWICE DAILY WITH A MEAL /FOOD 4 Active valsartan (Diovan) 160 mg tablet Take 160 mg by mouth 2 (two) times a day. 4 Active losartan (Cozaar) 50 mg tablet Take 50 mg by mouth 2 (two) times a day. 4 06/16/20 24 Discontinu ed(Alterna te therapy) metoprolol succinate (Toprol XL) 50 mg 24 hr tablet Take 1 tablet (50 mg total) by mouth daily. Do not crush or chew. 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 12/31/2018 Aneurysm Coronary Artery 12/31/2018 Hypertensive Heart And Chron ic Kidney Disease Without Heart Failure With Stage 1 To 4 Chronic Kidney Disease Or Unspecified Chronic Kidney Disease 12/31/2018 Ulnar Hammer Syndrome 12/31/2018 Hyperlipidemia 12/31/2018 Cardiomyopathy Ischemic 04/07/2016 Coronary Artery Disease With Stable Angina 03/07 Resolved Problems Problem Noted Date Diagnosed Date Resolved Date Prolonged QT Interval 06/11/20172018 Failure Heart 11/02/2016 06/18/2020 Immunizations Name Administration Dates Next Due Influenza Split 04/20/2017 Tdap 01/13/2016 Family History Medical History Relation Name Comments Hypertension Father Casey Speiker Asthma Mother Afshan Salas (Gerald) Speiker Rheum arthritis Mother Afshan Salas (Gerald) Speiker Diabetes Paternal Grandfather Isra Duarte Relation Name Status Comments Father Casey Speiker Alive Mother Afshan Salas (Gerlad) Speiker Alive Paternal Grandfather Isra Duarte Alive Social History Smoking Status as of 07/07/2024 Tobacco Use Types Packs/Day Years Used Date Smoking Tobacco: Never Assessed Social Connection and Isolation Panel [NHANES] A nswer Date Recorded In a typical week, how many times do you talk on the phone with family, friends, or neighbors? Twice a week 03/18/20 21 How often do you get togethe r with friends or relatives? Once a week 03/18/2021 How often do you attend chur ch or catholic services? 1 to 4 times per year 03/18/2021 Do you belong to any clubs o r organizations such as presybeterian groups, unions, fraternal or athletic groups, or school groups? No 03/18/2021 How often do you attend meet ings of the clubs or organizations you belong to? 1 to 4 times per year 03/18/2021 Are you , , di vorced, , never , or living with a partner? 03/18/2021 AUDIT-C Answer Date Recorded Q1: How often do you have a drink containing alc ohol? Monthly or less 03/18/2021 Q2: How many drinks containi ng alcohol do you have on a typical day when you are drinking? 1 or 2 03/18/2021 Q3: How often do you have si x or more drinks on one occasion? Less than monthly 03/18/2021 Overall Financial Resource Strain (CARDIA) Answe r Date Recorded How hard is it for you to pa y for the very basics like food, housing, medical care, and heating? Not hard at all 05/29/2023 [facility] [place] [facility] - Occupational Stress Questionnaire Answer Date Recorded Do you feel stress - tense, restless, nervous, or anxious, or unable to sleep at night because your mind is troubled all the time - these days? Not at all 03/18/2021 Exercise Vital Sign Answer Date Recorde d On average, how many days pe r week do you engage in moderate to strenuous exercise (like a brisk walk)? 1 day 05/29/2023 On average, how many minutes do you engage in exercise at this level? 60 min 05/29/2023 Hunger Vital Sign Answer Date Recorded Within the past 12 months, y ou worried that your food would run out before you got the money to buy more. Never true 05/29/20 23 Within the past 12 months, t he food you bought just didn't last and you didn't have money to get more. Never true 05/29/2023 PRAPARE - Transportation Answer Date Re corded In the past 12 months, has l ack of transportation kept you from medical appointments or from getting medications? No 05/03 In the past 12 months, has l ack of transportation kept you from meetings, work, or from getting things needed for daily living? No 05/29/2023 Nutrition Answer Date Recorded On average, how many serving s of fruits and vegetables do you eat per day (serving size is equal to 1 cup or approximately the size of a tennis ball)? 0-2 05/29/2023 Dental Answer Date Recorded Dental: Regular Dentist Yes 06/29/20 Employment Answer Date Recorded Employment status Retired 05/29/2023 Housing Stability Answer Date Recorded What is your living situation today? I have a [facility] place to live 05/29/2023 Education Answer Date Recorded What is the highest level of school you have completed or the highest degree you have received? 12th grade 03/18/2021 Sex and Gender Information Value Date Recorded Sex Assigned at Male 03/18/2021 9:25 AM CDT Legal Sex Male 6:03 AM WOOD GANG SAWYER Gender Identity Male 12/20/2017 11:12 AM CDT Sexual Orientation Straight 12/20/2017 11 :12 AM CDT Last Filed Vital Signs Vital Sign Reading Time Taken Comments Blood Pressure 144/90 06/16/2024 9:51 AM WOOD GANG SAWYER Pulse 70 06/16/2024 9:51 AM WOOD GANG SAWYER Temperature 36.8 C (98.2 F) 03/24/2024 5:10 PM CDT Respiratory Rate 21 06/12/2017 1:15 PM WOOD GANG SAWYER Value from [employer]. Oxygen Saturation 96% 03/24/2024 5:1 0 PM CDT Inhaled Oxygen Concentration - - Weight 89.7 kg (197 lb 10.3 oz) 06/16/2024 9:51 AM WOOD GANG SAWYER Height 165.9 cm (5' 5.32) 06/16/2024 9 :51 AM WOOD GANG SAWYER Body Mass Index 32.57 06/16/2024 9:51 AM WOOD GANG SAWYER Plan of Treatment Not on file Medical Devices Implanted Type Area Lead Software Architect Device Identifier Shelf Expiration Date Model / Serial / Lot Conversions - Default Historical Implant Device Implanted:Qty: 2 on 01/14/2016 Ankle Implant Right: Ankle Description:Body Location - Ankle R. Device Status Text - Ankle Imp. Lead Rl4f Defib Biplr 59 - [id number] - [id number] Implanted:Qty: 1 on 03/19/2024 by Kemal Miller M.D. at [facility] Cardiac Lead N/A: Heart [employer] 01/29/2026 [id number] / [id number] / Lead Ppm Ingevity+ Biplr 52 - [id number] - [id number] Implanted:Qty: 1 on 03/19/2024 by Kemal Miller M.D. at [facility] Cardiac Lead N/A: Heart [employer] 01/29/2026 [id number] / [id number] / Variax-Screw Lock Cross Pin 2.3x 8 - Renee [id number] Implanted:Qty: 2 on 01/14/2016 Hardware e.g. pins/screws/rods Polina Description:Device Manufactu rer - Polina Quynh.. Device Status Text - [id number]. Trimed-Screw Andrés. 3.5mm X 35mm - Renee [id number] Implanted:Qty: 1 on 01/14/2016 Hardware e.g. pins/screws/rods [employer] Description:Device Manufactu rer - [employer].. Device Status Text - [id number]. Variax-Screw Lock Cross Pin 2.3x13 - Renee [id number] Implanted:Qty: 1 on 01/14/2016 Hardware e.g. pins/screws/rods [place] Description:Device Manufactu rer - Polina Quynh.. Device Status Text - [id number]. Variax-Screw Lock Cross Pin 2.3x11 - Renee [id number] Implanted:Qty: 1 on 01/14/2016 Hardware e.g. pins/screws/rods Polina Description:Device Manufactu rer - [place] Quynh.. Device Status Text - [id number]. Variax-Plate 2.3mm Profyle T Ji 6ho - Renee [id number] Implanted:Qty: 1 on 01/14/2016 Hardware e.g. pins/screws/rods Polina Description:Device Manufactu rer - [place] Quynh.. Device Status Text - [id number]. Icd Rsn Dr 0.99x5.37x7.38 - [id number] - [id number] Implanted:Qty: 1 on 03/19/2024 by Kemal Miller M.D. at [facility] Implant Cardiac Defibrillator Left: Chest [employer] 02/13/2026 [id number] / [id number] / Conversions - Default Historical Implant Device Implanted:01/13 (Quantity not on file) Misc Other Right: Wrist Description:Body Location - Wrist R. plate and screws. Device Status Text - MiscOther. Conversions - Default Historical Implant Device Implanted:01/13 (Quantity not on file) Orthopedic Other Right: Wrist Description:Body Location - Wrist R. plate and screws. Device Status Text - OrthoOthr. Conversions - Default Historical Implant Device Implanted:01/13 (Quantity not on file) Wrist Implant Right: Wrist Description:Body Location - Wrist R. plate and screws. Device Status Text - Wrist Imp. Procedures Procedure Name Priority Date/Time Associated Diagnosis Comments ICD DUAL CHAMBER INTERROGATION WITH PROGRAMMING Routine 06/16/2024 8:47 AM WOOD GANG SAWYER Aftercare Cardiac Defibrillator INTERFACED REMOTE DEVICE CHECK Routine 03/21/2024 7:51 AM CDT ICD DUAL CHAMBER INTERROGATION WITH PROGRAMMING Routine 03/20/2024 10:33 AM CDT Aftercare Cardiac Defibrillator DX CHEST AP OR PA AND LATERAL 2 VIEWS RAD - Routine (most inpatients and all outpatients) 03/19/2024 4:19 PM CDT ECG Routine 03/19/2024 3:55 PM CDT HEART RHYTHM PROCEDURE Routine 03/19/2024 3:12 PM CDT Tachycardia Ventricular Nonsustained (HCC) HEART RHYTHM PROCEDURE Routine 03/19/2024 3:12 PM CDT Tachycardia Ventricular Nonsustained (HCC) CAR CARDIAC DEVICE INTERROGATION Routine 03/19/2024 2:58 PM CDT DX CHEST AP OR PA AND LATERAL 2 VIEWS RAD - Routine (most inpatients and all outpatients) 03/18/2024 12:13 PM CDT Tachycardia Ventricular Nonsustained (HCC) ECG Routine 03/18/2024 11:46 AM CDT Tachycardia Ventricular Nonsustained (HCC) TYPE AND SCREEN Routine 03/18/2024 11:06 AM CDT Tachycardia Ventricular Nonsustained (HCC) CBC WITHOUT DIFFERENTIAL, B Routine 03/18/2024 11:06 AM CDT Tachycardia Ventricular Nonsustained (HCC) COMPREHENSIVE METABOLIC PANEL, S/P Routine 03/18/2024 11:06 AM CDT Tachycardia Ventricular Nonsustained (HCC) (TTE) 2D ECHO DOPPLER COLOR Routine 03/18/2024 9:57 AM CDT Tachycardia Ventricular Nonsustained (HCC) BASIC METABOLIC PANEL, S/P Routine 01/15/2024 4:33 PM CDT Ectopy Ventricular ECG Routine 01/15/2024 2:10 PM CDT Tachycardia Ventricular Nonsustained (HCC) Coronary Artery Disease With Stable Angina (HCC) HOLTER MONITOR - IN CLINIC DIVISION CHIEF Routine 12/18/2023 12:08 PM CDT Tachycardia Ventricular Nonsustained (HCC) OUTSIDE MR NEURO Routine 09/19/2023 2:[address] NEURO Routine 09/19/2023 9:[address] NEURO Routine 09/19/2023 9:50 AM CDT OUTSIDE OTHER Routine 09/19/2023 9:45 AM CDT OUTSIDE US CARD Routine 09/19/2023 12:00 AM CDT HOLTER MONITOR - IN CLINIC DIVISION CHIEF Routine 07/07/2023 3:08 PM WOOD GANG SAWYER Ectopy Ventricular Cardiomyopathy Ischemic Coronary Artery Disease With Stable Angina (HCC) MR CARDIAC WITHOUT AND WITH IV CONTRAST RAD - Routine (most inpatients and all outpatients) 07/06/2023 12:32 PM WOOD GANG SAWYER Ectopy Ventricular Cardiomyopathy Ischemic Coronary Artery Disease With Stable Angina (HCC) ALANINE AMINOTRANSFERASE (ALT), S/P Routine 07/06/2023 10:59 AM WOOD GANG SAWYER Ectopy Ventricular Cardiomyopathy Ischemic Coronary Artery Disease With Stable Angina (HCC) LIPID PANEL, S Routine 07/06/2023 10:59 AM WOOD GANG SAWYER Ectopy Ventricular Cardiomyopathy Ischemic Coronary Artery Disease With Stable Angina (HCC) PULMONARY FUNCTION TESTS Routine 06/15/2023 10:28 AM WOOD GANG SAWYER Coronary Artery Disease With Stable Angina (HCC) Ectopy Ventricular 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 Failure (HCC) Hyperlipidemia DX CHEST AP OR PA AND LATERAL 2 VIEWS RAD - Routine (most inpatients and all outpatients) 06/15/2023 9:58 AM WOOD GANG SAWYER Coronary Artery Disease With Stable Angina (HCC) Ectopy Ventricular 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 Failure (HCC) Hyperlipidemia ECG Routine 06/15/2023 8:48 AM [facility] GANG SAWYER Coronary Artery Disease With Stable Angina (HCC) Ectopy Ventricular 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 Failure (HCC) Hyperlipidemia THYROID FUNCTION CASCADE, S Routine 06/15/2023 8:28 AM [facility] GANG SAWYER Coronary Artery Disease With Stable Angina (HCC) Ectopy Ventricular 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 Failure (HCC) Hyperlipidemia MAGNESIUM, S Routine 06/15/2023 8:28 AM [facility] GANG SAWYER Coronary Artery Disease With Stable Angina (HCC) Ectopy Ventricular 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 Failure (HCC) Hyperlipidemia PROTHROMBIN TIME (PT), P Routine 06/15/2023 8:27 AM [facility] Coronary Artery Disease With Stable Angina (HCC) Ectopy Ventricular 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 Failure (HCC) Hyperlipidemia [employer] - [employer] DIV[employer] CHIEF Routine 05/24/2023 10:55 AM [facility] Coronary Artery Disease With Stable Angina (HCC) Ectopy Ventricular 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 Failure (HCC) Hyperlipidemia (TTE) 2D ECHO DOPPLER COLOR Routine 05/23/2023 1:44 PM [facility] Coronary Artery Disease With Stable Angina (HCC) Ectopy Ventricular 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 Failure (HCC) Hyperlipidemia CBC WITHOUT DIFFERENTIAL, B Routine 05/23/2023 12:26 PM [facility] Coronary Artery Disease With Stable Angina (HCC) Ectopy Ventricular 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 Failure (HCC) Hyperlipidemia LIPID PANEL, S Routine 05/23/2023 12:26 PM [facility] Coronary Artery Disease With Stable Angina (HCC) Ectopy Ventricular 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 Failure (HCC) Hyperlipidemia COMPREHENSIVE METABOLIC PANEL, S/P Routine 05/23/2023 12:26 PM [facility] Coronary Artery Disease With Stable Angina (HCC) Ectopy Ventricular 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 Failure (HCC) Hyperlipidemia HEMOGLOBIN A1C, B Routine 05/23/2023 12:26 PM [facility] Coronary Artery Disease With Stable Angina (HCC) Ectopy Ventricular 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 Failure (HCC) Hyperlipidemia NT-PRO B-TYPE NATRIURETIC PEPTIDE (BNP), S Routine 05/23/2023 12:26 PM [facility] Coronary Artery Disease With Stable Angina (HCC) Ectopy Ventricular 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 Failure (HCC) Hyperlipidemia BASIC METABOLIC PANEL, S/P Routine 08/07/2022 9:47 AM [facility] Coronary Artery Disease With Stable Angina (HCC) [employer] MONIT[employer] - IN CLINIC DIVISION CHIEF Routine 06/10/2022 12:51 PM [facility] Cardiomyopathy Ischemic Coronary Artery Disease With Stable Angina (HCC) Aneurysm Coronary Artery Ectopy Ventricular Hyperlipidemia (TTE) 2D ECHO DOPPLER COLOR AND CONTRAST Routine 06/09/2022 4:08 PM [facility] Cardiomyopathy Ischemic Coronary Artery Disease With Stable Angina (HCC) Aneurysm Coronary Artery Ectopy Ventricular Hyperlipidemia ECG Routine 06/09/2022 11:50 AM [facility] Cardiomyopathy Ischemic Coronary Artery Disease With Stable Angina (HCC) Aneurysm Coronary Artery Ectopy Ventricular Hyperlipidemia CBC WITH DIFFERENTIAL, B Routine 06/09/2022 11:37 AM [facility] Cardiomyopathy Ischemic Coronary Artery Disease With Stable Angina (HCC) Aneurysm Coronary Artery Ectopy Ventricular Hyperlipidemia COMPREHENSIVE METABOLIC PANEL, S/P Routine 06/09/2022 11:37 AM [facility] Cardiomyopathy Ischemic Coronary Artery Disease With Stable Angina (HCC) Aneurysm Coronary Artery Ectopy Ventricular Hyperlipidemia HEMOGLOBIN A1C, B Routine 06/09/2022 11:37 AM [facility] Cardiomyopathy Ischemic Coronary Artery Disease With Stable Angina (HCC) Aneurysm Coronary Artery Ectopy Ventricular Hyperlipidemia MAGNESIUM, S Routine 06/09/2022 11:37 AM [facility] Cardiomyopathy Ischemic Coronary Artery Disease With Stable Angina (HCC) Aneurysm Coronary Artery Ectopy Ventricular Hyperlipidemia THYROID FUNCTION CASCADE, S Routine 06/09/2022 11:37 AM [facility] Cardiomyopathy Ischemic Coronary Artery Disease With Stable Angina (HCC) Aneurysm Coronary Artery Ectopy Ventricular Hyperlipidemia LIPID PANEL, S Routine 06/09/2022 11:37 AM [facility] Cardiomyopathy Ischemic Coronary Artery Disease With Stable Angina (HCC) Aneurysm Coronary Artery Ectopy Ventricular Hyperlipidemia OUTSIDE US BODY Routine 03/17/2022 8:10 AM CDT OUTSIDE DX SKELETAL Routine 11/24/2021 9:15 AM CDT OUTSIDE DX SKELETAL Routine 11/24/2021 9:10 AM CDT SARS CORONAVIRUS-2 RNA, V Routine 07/05/2021 2:52 PM [facility] Contact With And (Suspected) Exposure To COVID-19 INTERPRETATION OF OUTSIDE MR HEAD RAD - Routine (most inpatients and all outpatients) 03/22/2021 9:15 AM CDT Stroke Cerebrovascular Accident Personal History INTERPRETATION OF OUTSIDE CT HEAD RAD - Routine (most inpatients and all outpatients) 03/22/2021 9:09 AM CDT Stroke Cerebrovascular Accident Personal History OUTSIDE MR NEURO Routine 12/03/2020 11:50 AM CDT OUTSIDE MR NEURO Routine 12/03/2020 11:45 AM CDT OUTSIDE MR NEURO Routine 12/03/2020 11:[address] NEURO Routine 12/02/2020 5:10 PM CDT (TTE) 2D ECHO DOPPLER COLOR AND CONTRAST Routine 06/16/2020 1:43 PM [facility] Beat Premature Ventricular Cardiomyopathy Ischemic Coronary Artery Disease With Stable Angina (HCC) Hyperlipidemia ECG Routine 06/16/2020 8:56 AM [facility] Beat Premature Ventricular Cardiomyopathy Ischemic Coronary Artery Disease With Stable Angina (HCC) Hyperlipidemia CBC WITHOUT DIFFERENTIAL, B Routine 06/16/2020 8:44 AM [facility] Beat Premature Ventricular Cardiomyopathy Ischemic Coronary Artery Disease With Stable Angina (HCC) Hyperlipidemia NT-PRO B-TYPE NATRIURETIC PEPTIDE (BNP), S Routine 06/16/2020 8:44 AM [facility] Beat Premature Ventricular Cardiomyopathy Ischemic Coronary Artery Disease With Stable Angina (HCC) Hyperlipidemia THYROID-STIMULATING HORMONE-SENSITIVE (S-TSH) Routine 06/16/2020 8:44 AM [facility] Beat Premature Ventricular Cardiomyopathy Ischemic Coronary Artery Disease With Stable Angina (HCC) Hyperlipidemia LIPID PANEL, S Routine 06/16/2020 8:44 AM [facility] Beat Premature Ventricular Cardiomyopathy Ischemic Coronary Artery Disease With Stable Angina (HCC) Hyperlipidemia COMPREHENSIVE METABOLIC PANEL, S/P Routine 06/16/2020 8:44 AM [facility] Beat Premature Ventricular Cardiomyopathy Ischemic Coronary Artery Disease With Stable Angina (HCC) Hyperlipidemia [employer] - [employer] DIVISION CHIEF Routine 07/21/2019 9:34 AM [facility] Failure Heart (HCC) Beat Premature Ventricular Cardiomyopathy Ischemic ECG Routine 07/08/2019 11:23 AM [facility] Cardiomyopathy Ischemic Failure Heart (HCC) Chronic Kidney Disease Stage 3 Glomerular Filtration Rate 30 To 59 Hyperlipidemia Aneurysm Coronary Artery Coronary Artery Disease With Stable Angina (HCC) NM CARDIAC BLOOD POOL MUGA AT REST RAD - Routine (most inpatients and all outpatients) 07/08/2019 11:12 AM [facility] Cardiomyopathy Ischemic Failure Heart (HCC) Chronic Kidney Disease Stage 3 Glomerular Filtration Rate 30 To 59 Hyperlipidemia Aneurysm Coronary Artery Coronary Artery Disease With Stable Angina (HCC) CBC WITHOUT DIFFERENTIAL, B Routine 07/08/2019 10:58 AM [facility] Cardiomyopathy Ischemic Failure Heart (HCC) Chronic Kidney Disease Stage 3 Glomerular Filtration Rate 30 To 59 Hyperlipidemia Aneurysm Coronary Artery Coronary Artery Disease With Stable Angina (HCC) NT-PRO B-TYPE NATRIURETIC PEPTIDE (BNP), S Routine 07/08/2019 10:58 AM [facility] Cardiomyopathy Ischemic Failure Heart (HCC) Chronic Kidney Disease Stage 3 Glomerular Filtration Rate 30 To 59 Hyperlipidemia Aneurysm Coronary Artery Coronary Artery Disease With Stable Angina (HCC) LIPID PANEL, S Routine 07/08/2019 10:58 AM [facility] Cardiomyopathy Ischemic Failure Heart (HCC) Chronic Kidney Disease Stage 3 Glomerular Filtration Rate 30 To 59 Hyperlipidemia Aneurysm Coronary Artery Coronary Artery Disease With Stable Angina (HCC) BASIC METABOLIC PANEL, S/P Routine 07/08/2019 10:54 AM [facility] Failure Heart (HCC) CARDIOPULMONARY (VO2) EXERCISE TEST Routine 01/21/2019 2:10 PM CDT Coronary Artery Disease (Unspecified) Cardiomyopathy Ischemic Pain Chest Dyspnea On Exertion Snoring Apnea Sleep Obstructive PULMONARY FUNCTION TESTS Routine 01/21/2019 9:02 AM CDT Coronary Artery Disease (Unspecified) Cardiomyopathy Ischemic Pain Chest Dyspnea On Exertion Snoring Apnea Sleep Obstructive PET CT CARDIAC PERFUSION REST AND STRESS RAD - Routine (most inpatients and all outpatients) 01/07/2019 3:14 PM CDT Coronary Artery Disease (Unspecified) Cardiomyopathy Ischemic Pain Chest Dyspnea On Exertion Snoring Apnea Sleep Obstructive CT CARDIAC ANGIOGRAM WITH CORONARY ARTERIES WITH IV CONTRAST RAD - Routine (most inpatients and all outpatients) 01/07/2019 10:43 AM CDT Coronary Artery Disease (Unspecified) Cardiomyopathy Ischemic Pain Chest Dyspnea On Exertion Snoring Apnea Sleep Obstructive ECG Routine 12/31/2018 8:01 AM CDT Coronary Artery Disease (Unspecified) Hyperlipidemia Fatigue Impaired Fasting Glucose Cardiomyopathy Ischemic DX CHEST AP OR PA AND LATERAL 2 VIEWS RAD - Routine (most inpatients and all outpatients) 12/31/2018 7:32 AM CDT Coronary Artery Disease (Unspecified) Hyperlipidemia Fatigue Impaired Fasting Glucose Cardiomyopathy Ischemic PROTHROMBIN TIME (PT), P Routine 12/31/2018 7:15 AM CDT Coronary Artery Disease (Unspecified) Hyperlipidemia Fatigue Impaired Fasting Glucose Cardiomyopathy Ischemic NT-PRO B-TYPE NATRIURETIC PEPTIDE (BNP), S Routine 12/31/2018 7:15 AM CDT Coronary Artery Disease (Unspecified) Hyperlipidemia Fatigue Impaired Fasting Glucose Cardiomyopathy Ischemic TROPONIN T, 5TH GEN, P Routine 12/31/2018 7:15 AM CDT Coronary Artery Disease (Unspecified) Hyperlipidemia Fatigue Impaired Fasting Glucose Cardiomyopathy Ischemic HEMOGLOBIN A1C, B Routine 12/31/2018 7:15 AM CDT Coronary Artery Disease (Unspecified) Hyperlipidemia Fatigue Impaired Fasting Glucose Cardiomyopathy Ischemic CBC WITHOUT DIFFERENTIAL, B Routine 12/31/2018 7:15 AM CDT Coronary Artery Disease (Unspecified) Hyperlipidemia Fatigue Impaired Fasting Glucose Cardiomyopathy Ischemic THYROID-STIMULATING HORMONE-SENSITIVE (S-TSH) Routine 12/31/2018 7:15 AM CDT Coronary Artery Disease (Unspecified) Hyperlipidemia Fatigue Impaired Fasting Glucose Cardiomyopathy Ischemic LIPID PANEL, S Routine 12/31/2018 7:15 AM CDT Coronary Artery Disease (Unspecified) Hyperlipidemia Fatigue Impaired Fasting Glucose Cardiomyopathy Ischemic COMPREHENSIVE METABOLIC PANEL, S/P Routine 12/31/2018 7:15 AM CDT Coronary Artery Disease (Unspecified) Hyperlipidemia Fatigue Impaired Fasting Glucose Cardiomyopathy Ischemic C-REACTIVE PROTEIN (CRP), S/P Routine 12/31/2018 7:13 AM CDT Coronary Artery Disease (Unspecified) Pain Chest (TTE) 2D ECHO DOPPLER COLOR AND CONTRAST Routine 12/30/2018 8:04 PM CDT Coronary Artery Disease (Unspecified) Hyperlipidemia Fatigue Impaired Fasting Glucose Cardiomyopathy Ischemic OUTSIDE OTHER Routine 11/08/2018 1:05 PM CDT PROTHROMBIN TIME (PT), P Routine 05/28/2018 9:18 AM [facility] Coronary Artery Disease CBC WITHOUT DIFFERENTIAL, B Routine 06/12/2017 6:50 AM [facility] PROTHROMBIN TIME (PT), P Routine 06/12/2017 6:50 AM [facility] ELPN WITH CREATININE SHEREEN, P Routine 06/12/2017 6:50 AM [facility] PROTHROMBIN TIME (PT), P Routine 06/11/2017 7:46 AM [facility] CBC WITHOUT DIFFERENTIAL, B Routine 06/11/2017 7:46 AM [facility] ELPN WITH CREATININE SHEREEN, P Routine 06/11/2017 7:46 AM [facility] ECG Routine 06/11/2017 7:15 AM [facility] DX CHEST AP OR PA AND LATERAL 2 VIEWS Routine 06/11/2017 6:08 AM [facility] GLUCOSE POCT, B Routine 06/10/2017 5:36 PM [facility] GLUCOSE POCT, B Routine 06/10/2017 12:05 PM [facility] DX CHEST PORTABLE 1 VIEW Routine 06/10/2017 9:22 AM [facility] ELPN WITH CREATININE SHEREEN, P Routine 06/10/2017 6:09 AM [facility] CBC WITHOUT DIFFERENTIAL, B Routine 06/10/2017 6:09 AM [facility] PROTHROMBIN TIME (PT), P Routine 06/10/2017 6:09 AM [facility] GLUCOSE POCT, B Routine 06/09/2017 10:40 PM [facility] DX ABDOMEN PORTABLE ANTERIOR POSTERIOR 1 VIEW Routine 06/09/2017 6:25 PM [facility] GLUCOSE POCT, B Routine 06/09/2017 5:54 PM [facility] DX CHEST AP OR PA AND LATERAL 2 VIEWS Routine 06/09/2017 5:35 PM [facility] GLUCOSE POCT, B Routine 06/09/2017 12:33 PM [facility] MAGNESIUM, S Routine 06/09/2017 6:18 AM [facility] PROTHROMBIN TIME (PT), P Routine 06/09/2017 6:18 AM [facility] CBC WITHOUT DIFFERENTIAL, B Routine 06/09/2017 6:18 AM [facility] ELPN WITH CREATININE SHEREEN, P Routine 06/09/2017 6:18 AM [facility] PHOSPHORUS (INORGANIC), S Routine 06/09/2017 6:18 AM [facility] CALCIUM, TOT, S/P Routine 06/09/2017 6:18 AM [facility] MICROSCOPIC MANUAL Routine 06/08/2017 11:13 PM [facility] CREATININE, RANDOM, U Routine 06/08/2017 11:13 PM [facility] URINALYSIS WITH MICROSCOPIC Routine 06/08/2017 11:13 PM [facility] CHLORIDE, RANDOM, U Routine 06/08/2017 11:13 PM [facility] SODIUM, RANDOM, U Routine 06/08/2017 11:13 PM [facility] DX CHEST PORTABLE POST-PICC PLACEMENT 1 VIEW Routine 06/08/2017 6:35 PM [facility] GLUCOSE POCT, B Routine 06/08/2017 6:01 PM [facility] ELPN WITH CREATININE SHEREEN, P Routine 06/08/2017 3:44 PM [facility] GLUCOSE POCT, B Routine 06/08/2017 11:39 AM [facility] GLUCOSE POCT, B Routine 06/08/2017 7:39 AM [facility] ELPN WITH CREATININE SHEREEN, P Routine 06/08/2017 6:38 AM [facility] CBC WITHOUT DIFFERENTIAL, B Routine 06/08/2017 6:38 AM [facility] PROTHROMBIN TIME (PT), P Routine 06/08/2017 6:38 AM [facility] DX CHEST PORTABLE 1 VIEW Routine 06/08/2017 6:35 AM [facility] GLUCOSE POCT, B Routine 06/07/2017 9:52 PM [facility] GLUCOSE POCT, B Routine 06/07/2017 6:06 PM [facility] GLUCOSE POCT, B Routine 06/07/2017 11:43 AM [facility] ELPN WITH CREATININE SHEREEN, P Routine 06/07/2017 11:43 AM [facility] PROTHROMBIN TIME (PT), P Routine 06/07/2017 11:43 AM [facility] CORTROSYN STIM/ANTONI Routine 06/07/2017 9:02 AM [facility] THYROID FUNCTION CASCADE, S Routine 06/07/2017 9:02 AM [facility] GLUCOSE POCT, B Routine 06/07/2017 7:48 AM [facility] DX CHEST PORTABLE 1 VIEW Routine 06/07/2017 6:38 AM [facility] ELPN WITH CREATININE SHEREEN, P Routine 06/07/2017 5:47 AM [facility] PROTHROMBIN TIME (PT), P Routine 06/07/2017 5:47 AM [facility] ABG W/COOX Routine 06/07/2017 5:47 AM [facility] CBC WITHOUT DIFFERENTIAL, B Routine 06/07/2017 5:47 AM [facility] GLUCOSE POCT, B Routine 06/06/2017 9:44 PM [facility] ELPN WITH CREATININE SHEREEN, P Routine 06/06/2017 8:51 PM [facility] GLUCOSE POCT, B Routine 06/06/2017 5:16 PM [facility] ELPN WITH CREATININE SHEREEN, P Routine 06/06/2017 12:50 PM [facility] GLUCOSE POCT, B Routine 06/06/2017 12:42 PM [facility] PREPARE RED BLOOD CELLS Routine 06/06/2017 8:22 AM [facility] ANTIBODY SCREEN, B Routine 06/06/2017 8:22 AM [facility] ABORH, RBC Routine 06/06/2017 8:22 AM [facility] ABG W/COOX Routine 06/06/2017 8:08 AM [facility] GLUCOSE POCT, B Routine 06/06/2017 8:06 AM [facility] DX CHEST PORTABLE 1 VIEW Routine 06/06/2017 6:45 AM [facility] CBC WITHOUT DIFFERENTIAL, B Routine 06/06/2017 4:53 AM [facility] PROTHROMBIN TIME (PT), P Routine 06/06/2017 4:53 AM [facility] ELPN WITH CREATININE SHEREEN, P Routine 06/06/2017 4:53 AM [facility] ELPN WITH CREATININE SHEREEN, P Routine 06/06/2017 2:57 AM [facility] GLUCOSE POCT, B Routine 06/05/2017 9:40 PM [facility] GLUCOSE POCT, B Routine 06/05/2017 5:36 PM [facility] LACTATE, B/P Routine 06/05/2017 4:51 PM [facility] GLUCOSE POCT, B Routine 06/05/2017 4:49 PM [facility] ABG W/COOX Routine 06/05/2017 3:56 PM [facility] GLUCOSE POCT, B Routine 06/05/2017 3:54 PM [facility] DX CHEST PORTABLE 1 VIEW Routine 06/05/2017 3:10 PM [facility] ABG AND ELECTROLYTES, B (RAPIDPOINT - AZ) Routine 06/05/2017 2:51 PM [facility] GLUCOSE POCT, B Routine 06/05/2017 2:48 PM [facility] GLUCOSE POCT, B Routine 06/05/2017 1:25 PM [facility] ELECTROLYTE (CHEM 4) PANEL, S/P Routine 06/05/2017 12:35 PM [facility] GLUCOSE POCT, B Routine 06/05/2017 12:14 PM [facility] GLUCOSE POCT, B Routine 06/05/2017 11:26 AM [facility] GLUCOSE POCT, B Routine 06/05/2017 10:31 AM [facility] GLUCOSE POCT, B Routine 06/05/2017 9:33 AM [facility] GLUCOSE POCT, B Routine 06/05/2017 8:37 AM [facility] GLUCOSE POCT, B Routine 06/05/2017 8:00 AM [facility] GLUCOSE POCT, B Routine 06/05/2017 6:41 AM [facility] DX CHEST PORTABLE 1 VIEW Routine 06/05/2017 6:03 AM [facility] GLUCOSE POCT, B Routine 06/05/2017 5:34 AM [facility] GLUCOSE POCT, B Routine 06/05/2017 4:28 AM [facility] ELPN WITH CREATININE SHEREEN, P Routine 06/05/2017 3:49 AM [facility] ACTIVATED PARTIAL THROMBOPLASTIN TIME (APTT), P Routine 06/05/2017 3:49 AM [facility] CBC WITHOUT DIFFERENTIAL, B Routine 06/05/2017 3:49 AM [facility] ABG W/COOX Routine 06/05/2017 3:49 AM [facility] PROTHROMBIN TIME (PT), P Routine 06/05/2017 3:49 AM [facility] GLUCOSE POCT, B Routine 06/05/2017 3:44 AM [facility] GLUCOSE POCT, B Routine 06/05/2017 2:48 AM [facility] GLUCOSE POCT, B Routine 06/05/2017 1:36 AM [facility] GLUCOSE POCT, B Routine 06/05/2017 12:50 AM [facility] GLUCOSE POCT, B Routine 06/04/2017 11:49 PM [facility] ACTIVATED PARTIAL THROMBOPLASTIN TIME (APTT), P Routine 06/04/2017 11:07 PM [facility] ELPN WITH CREATININE SHEREEN, P Routine 06/04/2017 11:07 PM [facility] ABG W/COOX Routine 06/04/2017 11:07 PM [facility] FIBRINOGEN, P Routine 06/04/2017 11:07 PM [facility] CBC WITHOUT DIFFERENTIAL, B Routine 06/04/2017 11:07 PM [facility] LACTATE, B/P Routine 06/04/2017 11:07 PM [facility] PROTHROMBIN TIME (PT), P Routine 06/04/2017 11:07 PM [facility] ACT, POCT, B Routine 06/04/2017 11:06 PM [facility] GLUCOSE POCT, B Routine 06/04/2017 11:04 PM [facility] DX CHEST PORTABLE 1 VIEW Routine 06/04/2017 10:34 PM [facility] ECG Routine 06/04/2017 10:13 PM [facility] ABG W/COOX Routine 06/04/2017 8:19 PM [facility] CALCIUM, IONIZED, S/B Routine 06/04/2017 8:19 PM [facility] LACTATE, B/P Routine 06/04/2017 8:19 PM [facility] GLUCOSE, WHOLE BLOOD Routine 06/04/2017 8:19 PM [facility] POTASSIUM, B Routine 06/04/2017 8:19 PM [facility] SODIUM, S/P Routine 06/04/2017 8:19 PM [facility] ACT, POCT, B Routine 06/04/2017 8:18 PM [facility] GLUCOSE POCT, B Routine 06/04/2017 8:18 PM [facility] HEMOGLOBIN (HGB), POCT, B Routine 06/04/2017 8:17 PM [facility] ACTIVATED PARTIAL THROMBOPLASTIN TIME (APTT), P Routine 06/04/2017 7:32 PM [facility] FIBRINOGEN, P Routine 06/04/2017 7:32 PM [facility] PROTHROMBIN TIME (PT), P Routine 06/04/2017 7:32 PM [facility] CBC WITHOUT DIFFERENTIAL, B Routine 06/04/2017 7:32 PM [facility] GLUCOSE POCT, B Routine 06/04/2017 7:27 PM [facility] LACTATE, B/P Routine 06/04/2017 6:50 PM [facility] GLUCOSE POCT, B Routine 06/04/2017 6:48 PM [facility] ABG W/COOX Routine 06/04/2017 5:27 PM [facility] GLUCOSE POCT, B Routine 06/04/2017 5:25 PM [facility] GLUCOSE POCT, B Routine 06/04/2017 4:44 PM [facility] GLUCOSE POCT, B Routine 06/04/2017 3:37 PM [facility] DX CHEST PORTABLE 1 VIEW Routine 06/04/2017 3:04 PM [facility] ACT, POCT, B Routine 06/04/2017 2:41 PM [facility] PROTHROMBIN TIME (PT), P Routine 06/04/2017 2:41 PM [facility] ACTIVATED PARTIAL THROMBOPLASTIN TIME (APTT), P Routine 06/04/2017 2:41 PM [facility] CALCIUM, IONIZED, S/B Routine 06/04/2017 2:41 PM [facility] ABG W/COOX Routine 06/04/2017 2:41 PM [facility] LACTATE, B/P Routine 06/04/2017 2:41 PM [facility] CBC WITHOUT DIFFERENTIAL, B Routine 06/04/2017 2:41 PM [facility] FIBRINOGEN, P Routine 06/04/2017 2:41 PM [facility] ELPN WITH CREATININE SHEREEN, P Routine 06/04/2017 2:41 PM [facility] GLUCOSE POCT, B Routine 06/04/2017 2:31 PM [facility] DX CHEST PORTABLE 1 VIEW Routine 06/04/2017 1:59 PM [facility] ACTIVATED PARTIAL THROMBOPLASTIN TIME (APTT), P Routine 06/04/2017 12:37 PM [facility] PLATELETS, B Routine 06/04/2017 12:37 PM [facility] SODIUM, S/P Routine 06/04/2017 12:37 PM [facility] ABG W/COOX Routine 06/04/2017 12:37 PM [facility] FIBRINOGEN, P Routine 06/04/2017 12:37 PM [facility] LACTATE, B/P Routine 06/04/2017 12:37 PM [facility] PROTHROMBIN TIME (PT), P Routine 06/04/2017 12:37 PM [facility] CALCIUM, IONIZED, S/B Routine 06/04/2017 12:37 PM [facility] GLUCOSE, WHOLE BLOOD Routine 06/04/2017 12:37 PM [facility] POTASSIUM, B Routine 06/04/2017 12:37 PM [facility] ACT, POCT, B Routine 06/04/2017 12:36 PM [facility] ACT, POCT, B Routine 06/04/2017 11:36 AM [facility] POTASSIUM, B Routine 06/04/2017 11:05 AM [facility] SODIUM, S/P Routine 06/04/2017 11:05 AM [facility] GLUCOSE, WHOLE BLOOD Routine 06/04/2017 11:05 AM [facility] CALCIUM, IONIZED, S/B Routine 06/04/2017 11:05 AM [facility] ABG W/COOX Routine 06/04/2017 11:05 AM [facility] ACT, POCT, B Routine 06/04/2017 10:49 AM [facility] HXINTRA-OP AUTO TX Routine 06/04/2017 10:45 AM [facility] ACT, POCT, B Routine 06/04/2017 10:15 AM [facility] HEMOGLOBIN (HGB), POCT, B Routine 06/04/2017 10:14 AM [facility] ACT, POCT, B Routine 06/04/2017 8:48 AM [facility] POTASSIUM, B Routine 06/04/2017 8:42 AM [facility] ABG W/COOX Routine 06/04/2017 8:42 AM [facility] GLUCOSE, WHOLE BLOOD Routine 06/04/2017 8:42 AM [facility] LACTATE, B/P Routine 06/04/2017 8:42 AM [facility] [facility] SODIUM, S/P Routine 06/04/2017 8:42 AM [employer] [facility] CALCIUM, IONIZED, S/B Routine 06/04/2017 8:42 AM [facility] [facility] [facility] ANESTHESIOLOGY IMAGE EXAM Routine 06/04/2017 7:50 AM [employer] [facility] [facility] ECHO TRANSESOPHAGEAL (JOSTIN) Routine 06/04/2017 7:37 AM [employer] [facility] [facility] ECHOCARDIOLOGY IMAGE EXAM Routine 06/04/2017 6:45 AM [employer] [facility] ECG Routine 06/01/2017 12:34 PM [employer] [facility] US LOWER EXTREMITY VEINS Routine 06/01/2017 12:09 PM [employer] US UPPER EXTREMITY ARTERIES GRAFT Routine 06/01/2017 12:08 PM [employer] [facility] ABORH, RBC Routine 06/01/2017 11:56 AM [employer] [facility] ANTIBODY SCREEN, B Routine 06/01/2017 11:55 AM [employer] [facility] ABORH, RBC Routine 06/01/2017 11:55 AM [employer] [facility] CBC WITH DIFFERENTIAL, B Routine 06/01/2017 10:37 AM [employer] [facility] POTASSIUM, S/P Routine 06/01/2017 10:37 AM [employer] SODIUM, S/P Routine 06/01/2017 10:37 AM [employer] [facility] BUN (BLOOD UREA NITROGEN), S/P Routine 06/01/2017 10:37 AM [employer] [facility] PROTHROMBIN TIME (PT), P Routine 06/01/2017 10:37 AM [employer] [facility] CREATININE WITH EGFR, S/P Routine 06/01/2017 10:37 AM [employer] [facility] HEMOGLOBIN A1C, B Routine 06/01/2017 10:37 AM [employer] [facility] DX CHEST AP OR PA AND LATERAL 2 VIEWS Routine 06/01/2017 9:36 AM [employer] [facility] [facility] CARDIOLOGY IMAGE EXAM Routine 05/08/2017 11:15 AM [employer] [facility] [facility] CARDIAC CATHETERIZATION Routine 05/08/2017 11:08 AM [employer] [facility] COENZYME Q10, TOTAL, P Routine 05/08/2017 7:52 AM [employer] [facility] ALKALINE PHOSPHATASE, S/P Routine 05/08/2017 7:52 AM [employer] [facility] LIPASE, S/P Routine 05/08/2017 7:52 AM [employer] [facility] 25-HYDROXYVITAMIN D2 AND D3, S Routine 05/08/2017 7:52 AM [employer] ALANINE AMINOTRANSFERASE (ALT), S/P Routine 05/08/2017 7:52 AM [employer] BILIRUBIN, TOT, S/P Routine 05/08/2017 7:52 AM [employer] [facility] ECG Routine 05/04/2017 8:36 AM CDT CBC WITHOUT DIFFERENTIAL, B Routine 05/04/2017 8:26 AM CDT CREATININE WITH EGFR, S/P Routine 05/04/2017 8:26 AM CDT GLUCOSE, FASTING, S/P Routine 05/04/2017 8:26 AM CDT TROPONIN T, 5TH GEN, P Routine 05/04/2017 8:26 AM CDT SODIUM, S/P Routine 05/04/2017 8:26 AM CDT BUN (BLOOD UREA NITROGEN), S/P Routine 05/04/2017 8:26 AM CDT POTASSIUM, S/P Routine 05/04/2017 8:26 AM CDT ECG Routine 12/13/2016 12:48 PM CDT ECHO TRANSTHORACIC (TTE) Routine 12/13/2016 10:34 AM CDT ECHOCARDIOLOGY IMAGE EXAM Routine 12/13/2016 10:30 AM CDT POTASSIUM, S/P Routine 12/13/2016 9:44 AM CDT LIPID PANEL, S Routine 12/13/2016 9:44 AM CDT CREATININE WITH EGFR, S/P Routine 12/13/2016 9:44 AM CDT GLUCOSE, FASTING, S/P Routine 12/13/2016 9:44 AM CDT NT-PRO B-TYPE NATRIURETIC PEPTIDE (BNP), S Routine 12/13/2016 9:44 AM CDT CBC WITHOUT DIFFERENTIAL, B Routine 12/13/2016 9:44 AM CDT SODIUM, S/P Routine 12/13/2016 9:44 AM CDT DX WRIST 3+ VIEWS Routine 05/29/2016 8:22 AM [employer] DX HAND UNILATERAL 2 VIEWS Routine 05/29/2016 8:22 AM [employer] DX FINGER UNILATERAL 2+ VIEWS Routine 05/29/2016 8:22 AM [employer] CARDIAC CATHETERIZATION Routine 05/02/2016 10:50 AM CDT CARDIOLOGY IMAGE EXAM Routine 05/02/2016 10:28 AM CDT PROTHROMBIN TIME (PT), P Routine 05/02/2016 9:11 AM CDT CREATININE WITH EGFR, S/P Routine 05/02/2016 9:11 AM CDT SODIUM, S/P Routine 05/02/2016 9:11 AM CDT POTASSIUM, S/P Routine 05/02/2016 9:11 AM CDT CBC WITHOUT DIFFERENTIAL, B Routine 05/02/2016 9:11 AM CDT MR CARDIAC WITHOUT AND WITH IV CONTRAST Routine 03/21/2016 3:02 PM CDT NM CARDIAC PERFUSION REST AND STRESS SPECT Routine 03/21/2016 12:07 PM CDT DX CHEST AP OR PA AND LATERAL 2 VIEWS Routine 03/21/2016 9:41 AM CDT SESTAMIBI SCAN Routine 03/21/2016 9:39 AM CDT LIPID PANEL, S Routine 03/21/2016 9:03 AM CDT CBC WITHOUT DIFFERENTIAL, B Routine 03/21/2016 9:03 AM CDT SODIUM, S/P Routine 03/21/2016 9:03 AM CDT THYROID-STIMULATING HORMONE-SENSITIVE (S-TSH) Routine 03/21/2016 9:03 AM CDT MAGNESIUM, S Routine 03/21/2016 9:03 AM CDT CREATININE WITH EGFR, S/P Routine 03/21/2016 9:03 AM CDT BUN (BLOOD UREA NITROGEN), S/P Routine 03/21/2016 9:03 AM CDT POTASSIUM, S/P Routine 03/21/2016 9:03 AM CDT ECG Routine 03/21/2016 8:26 AM CDT DX FINGER UNILATERAL 2+ VIEWS Routine 03/02/2016 9:48 AM CDT DX HAND UNILATERAL 3+ VIEWS Routine 03/02/2016 9:48 AM CDT DX WRIST 3+ VIEWS Routine 03/02/2016 9:48 AM CDT ECHOCARDIOLOGY IMAGE EXAM Routine 02/25/2016 12:31 PM CDT ECHO TRANSTHORACIC (TTE) Routine 02/25/2016 12:10 PM CDT DX FINGER UNILATERAL 2+ VIEWS Routine 02/16/2016 11:33 AM CDT DX WRIST 3+ VIEWS Routine 02/16/2016 11:33 AM CDT DX HAND UNILATERAL 3+ VIEWS Routine 02/16/2016 11:33 AM CDT DX HAND UNILATERAL 3+ VIEWS Routine 01/27/2016 10:13 AM CDT DX FINGER UNILATERAL 2+ VIEWS Routine 01/27/2016 10:13 AM CDT DX WRIST 3+ VIEWS Routine 01/27/2016 10:13 AM CDT FL FLUORO LESS THAN 1 HOUR Routine 01/14/2016 3:[address] 3D REQUIRING INDEPENDENT WORKSTATION Routine 01/14/2016 8:40 AM CDT PLASTIC AND RECON SURGERY IMAGE EXAM Routine 01/14/2016 12:[address] UPPER EXTREMITY WITHOUT IV CONTRAST Routine 01/13/2016 11:50 PM CDT OUTSIDE DX SKELETAL Routine 01/13/2016 1:26 PM CDT ECHOCARDIOLOGY IMAGE EXAM Routine 02/10/2015 9:19 AM CDT ECHO TRANSTHORACIC (TTE) Routine 02/10/2015 9:05 AM CDT ARTERIAL UPPER EXTREMITY Routine 10/11/2012 9:58 AM CDT SEDIMENTATION RATE, B Routine 10/11/2012 9:50 AM CDT CBC WITH DIFFERENTIAL, B Routine 10/11/2012 9:50 AM CDT ANTINUCLEAR ABS (LIZZIE), S Routine 10/11/2012 9:50 AM CDT Results * ICD DUAL CHAMBER INTERROGATION WITH PROGRAMMING (06/16/2024 8:47 AM [employer]) Only the most recent of3 resultswithin the time period is included. Date Time Interrogation Session [id number] [employer] [facility] Implantable Pulse Generator Lead Software Architect [email or web address] LAB SYSTEM Implantable Pulse Generator Type Defibrillator [facility] Implantable Pulse Generator Model D533 [facility] Implantable Pulse Generator Serial Number [id number] [facility] Implantable Pulse Generator Implant Date 20240319 [facility] Battery Status [facility] Chandrakant Statistic RA Percent Paced 72.00 [facility] Chandrakant Statistic RV Percent Paced 4.00 [facility] Lead Channel Sensing Intrinsic Amplitude 4.700 [facility] Lead Channel Setting Sensing Sensitivity 0.25 [facility] Lead Channel Impedance Value 595 [facility] Lead Channel Pacing Threshold Amplitude 0.900 [facility] Lead Channel Pacing Threshold Pulse Width 0.4 [facility] Lead Channel Measurements Date and Time 20240616 [facility] Lead Channel Setting Pacing Amplitude 2.000 [facility] Lead Channel Setting Pacing Pulse Width 0.4 [facility] Lead Channel Sensing Intrinsic Amplitude 7.100 [facility] Lead Channel Setting Sensing Sensitivity 0.60 [facility] Lead Channel Impedance Value 363 [facility] Lead Channel Pacing Threshold Amplitude 0.700 [facility] Lead Channel Pacing Threshold Pulse Width 0.4 [facility] Lead Channel Measurements Date and Time 20240320 [facility] Lead Channel Setting Pacing Amplitude 3.500 [facility] Lead Channel Setting Pacing Pulse Width 0.4 [facility] Chandrakant Setting Mode (NBG Code) DDDR [facility] Chandrakant Setting Lower Rate Limit 70 [facility] Chandrakant Setting AT Mode Switch Rate 170 [facility] Chandrakant Setting Maximum Tracking Rate 120 [facility] Chandrakant Setting Maximum Sensor Rate 120 [facility] Chandrakant Setting PAV Delay 180 [facility] Chandrakant Setting CARLOS Delay 150 [facility] Therapy Statistic Recent Shocks Delivered 0 [facility] Therapy Statistic Recent Shocks Aborted 0 [facility] Therapy Statistic Recent ATP Delivered 0 [facility] Murj Shock Measured Impedance 61 [facility] Zone Setting Type Category VF [facility] Murj Rate 1 200 [facility] Murj Therapies 41J, 41Jx7 [facility] Zone Setting Status On [facility] Murj Zone ID 1 [facility] Zone Setting Type Category [place] [facility] Murj Rate 1 150 [facility] Murj Therapies OffJ,OffJ [facility] Zone Setting Status Monitor F[facility] Murj Zone ID 2 [facility] Implantable Lead Lead Software Architect [employer] [facility] Implantable Lead Model 7841-52 [facility] Implantable Lead Location Right Atrium [facility] Implantable Lead Connection Status Connected [facility] Implantable Lead Serial Number [id number] [facility] Implantable Lead Implant Date 20240319 [facility] Implantable Lead Special Function Lead length: 52.00 cm [facility] Implantable Lead Lead Software Architect [employer] [facility] Implantable Lead Model 0672-59 [facility] Implantable Lead Location Right Ventricle [facility] Implantable Lead Connection Status Connected [facility] Implantable Lead Serial Number [id number] [facility] Implantable Lead Implant Date 20240319 [facility] Implantable Lead Special Function Lead length: 59.00 cm [facility] Anatomical Region Laterality Modality Echocardiography 06/20/2024 6:18 PM [employer] Impressions 06/20/2024 6:18 PM [employer] Encounter Impression: Title: Normal In-Office: With Events * Normal Device Function * 3 month post implant follow-up * Events or Alerts: 2, device reports 2 NSVT event, One EGM shows ventricular tachy run, rate ~150 bpm, duration 8 seconds, second EGM shows ventricular tachy run ~170 bpm, duration ~ 1 second, followed by some PVC's. * Battery: MATIAS, 13 years * Sensing, impedance and thresholds reviewed and tested * Presenting Rhythm: A paced, V sensed 70 bpm. * Underlying Rhythm: Sinus rhythm 60 bpm. * Heart Rate Histograms reviewed * Pacing and Detection Parameters were evaluated Plan: This patient underwent device interrogation. I agree that the device interrogation was medically indicated to provide appropriate care and continue routine device interrogations as indicated. Encounter Summary: This report includes 1 transmission that was received on 2024-06-16. Battery, lead impedance, sensing amplitude and pacing threshold data was reviewed. Narrative Procedure Note Avinash Jefferson M.B.B.S. - 06/20/2024 IMPRESSION: Encounter Impression: Title: Normal In-Office: With Events * Normal Device Function * 3 month post implant follow-up * Events or Alerts: 2, device reports 2 NSVT event, One EGM showsventricular tachy run, rate ~150 bpm, duration 8 seconds, second EGM showsventricular tachy run ~170 bpm, duration ~ 1 second, followed by somePVC's. * Battery: MATIAS, 13 years * Sensing, impedance and thresholds reviewed and tested * Presenting Rhythm: A paced, V sensed 70 bpm. * Underlying Rhythm: Sinus rhythm 60 bpm. * Heart Rate Histograms reviewed * Pacing and Detection Parameters were evaluated Plan: This patient underwent device interrogation. I agree that the deviceinterrogation was medically indicated to provide appropriate care andcontinue routine device interrogations as indicated. Encounter Summary: This report includes 1 transmission that was receivedon 2024-06-16. Battery, lead impedance, sensing amplitude and pacingthreshold data was reviewed. us Aaron Galan M.D. CV IMPLANTABLE CARDIAC DEVICE Final Result * CAR CARDIAC DEVICE INTERROGATION (03/21/2024 7:51 AM CDT) Date Time Interrogation Session [id number] [employer] [facility] Type Interrogation Session Remote Device Initiated [employer] [facility] Implantable Pulse Generator Lead Software Architect [email or web address] LAB SYSTEM Implantable Pulse Generator Type Defibrillator [facility] Implantable Pulse Generator Model D533 [facility] Implantable Pulse Generator Serial Number [id number] [facility] Implantable Pulse Generator Implant Date 20240319 [employer] [facility] Battery Remaining Percentage 100.00 % [employer] [facility] Battery Remaining Longevity 120.0 mo [employer] [facility] Battery Status Beginning of Service [employer] [facility] Chandrakant Statistic RA Percent Paced 70.00 [facility] Chandrakant Statistic RV Percent Paced 5.00 [facility] Lead Channel Setting Sensing Sensitivity 0.25 [facility] Lead Channel Pacing Threshold Amplitude 0.500 [facility] Lead Channel Pacing Threshold Pulse Width 0.4 [facility] Lead Channel Measurements Date and Time 2024-03-19 [facility] Lead Channel Setting Pacing Amplitude 3.500 [facility] Lead Channel Setting Pacing Pulse Width 0.4 [facility] Lead Channel Setting Sensing Sensitivity 0.60 [facility] Lead Channel Pacing Threshold Amplitude 0.400 [facility] Lead Channel Pacing Threshold Pulse Width 0.4 [facility] Lead Channel Measurements Date and Time 2024-03-19 [facility] Lead Channel Setting Pacing Amplitude 3.500 [facility] Lead Channel Setting Pacing Pulse Width 0.4 [facility] Chandrakant Setting Mode (NBG Code) DDDR [facility] Chandrakant Setting Lower Rate Limit 70 [facility] Chandrakant Setting AT Mode Switch Rate 170 [facility] Chandrakant Setting Maximum Tracking Rate 120 [facility] Chandrakant Setting Maximum Sensor Rate 120 [facility] Chandrakant Setting PAV Delay 80 [facility] Chandrakant Setting CARLOS Delay 65 [facility] Therapy Statistic Recent Shocks Delivered 0 [facility] Therapy Statistic Recent Shocks Aborted 0 [facility] Therapy Statistic Recent ATP Delivered 0 [facility] Lead Channel Setting Sensing Polarity Bipolar [facility] Lead Channel Setting Sensing Polarity Bipolar [facility] Lead Channel Setting Pacing Polarity Bipolar [facility] Lead Channel Setting Pacing Polarity Bipolar [facility] Lead Channel Pacing Threshold Polarity Bipolar [facility] Lead Channel Pacing Threshold Polarity Bipolar [facility] Zone Setting Type Category VF [facility] Murj Rate 1 200 [facility] Murj Therapies Burst,41J,41J,41J x 6 [facility] Zone Setting Status On [facility] Murj Zone ID 1 [facility] Zone Setting Type Category [place] [facility] Murj Rate 1 150 [facility] Zone Setting Status Monitor F[facility] Murj Zone ID 2 [facility] Implantable Lead Lead Software Architect [employer] [facility] Implantable Lead Model 7841-52 [facility] Implantable Lead Location Right Atrium [facility] Implantable Lead Connection Status Connected [facility] Implantable Lead Serial Number [id number] [facility] Implantable Lead Implant Date 20240319 [facility] Implantable Lead Polarity Type Bipolar Lead [facility] Implantable Lead Special Function Lead length: 52.00 cm [facility] Implantable Lead Lead Software Architect [employer] [facility] Implantable Lead Model 0672-59 [facility] Implantable Lead Location Right Ventricle [facility] Implantable Lead Connection Status Connected [facility] Implantable Lead Serial Number [id number] [facility] Implantable Lead Implant Date 20240319 [facility] Implantable Lead Polarity Type Unknown [facility] Implantable Lead Special Function Lead length: 59.00 cm [facility] Anatomical Region Laterality Modality Other 03/24/2024 9:55 AM CDT Impressions 03/24/2024 9:55 AM CDT Encounter Impression: Title: Unscheduled Remote * Reason: Right ventricular intrinsic amplitude out of range. New implant from 03-19-2024 * Alerts or Events: 1 * Battery: Battery is at 100%, 10.00 yrs * Sensing, impedance and thresholds reviewed * Programmed parameters reviewed * Presenting rhythm reviewed and reports AP-VS at 68 bpm, with PACs and PVCs-no undersensing noted * Heart Rate Histograms reviewed * No significant changes noted Title: Non-sustained Ventricular Tachycardia * Stored EGMs are consistent with or suggestive of Non-sustained VT * Total episodes: 1 Review of EGM is suggestive of intermittent runs of 3-10 beats at time, of NSVT with retrograde, at 165 bpm. Title: Premature Ventricular Contraction (PVC) Number of PVCs from counters: Since 03-20-2024, there has been 4780 total PVCs. Plan: Routine remote follow up and as needed. This patient underwent device interrogation. I agree that the device interrogation was medically indicated to provide appropriate care and continue routine device interrogations as indicated. Encounter Summary: This report includes 2 total transmissions that were received between 2024-03-20 and 2024-03-21. 1 transmission was archived as non- contributory. The remaining transmission was used to construct the conclusion and plan for this report. Battery, lead impedance, sensing amplitude and pacing threshold data was reviewed. Narrative Procedure Note Wesley Varghese M.D., Ph.D. - 03/24/2024 IMPRESSION: Encounter Impression: Title: Unscheduled Remote * Reason: Right ventricular intrinsic amplitude out of range. New implantfrom 03-19-2024 * Alerts or Events: 1 * Battery: Battery is at 100%, 10.00 yrs * Sensing, impedance and thresholds reviewed * Programmed parameters reviewed * Presenting rhythm reviewed and reports AP-VS at 68 bpm, with PACs andPVCs-no undersensing noted * Heart Rate Histograms reviewed * No significant changes noted Title: Non-sustained Ventricular Tachycardia * Stored EGMs are consistent with or suggestive of Non-sustained VT * Total episodes: 1 Review of EGM is suggestive of intermittent runs of 3-10 beats at time, ofNSVT with retrograde, at 165 bpm. Title: Premature Ventricular Contraction (PVC) Number of PVCs from counters: Since 03-20-2024, there has been 4780 totalPVCs. Plan: Routine remote follow up and as needed. This patient underwent device interrogation. I agree that the deviceinterrogation was medically indicated to provide appropriate care andcontinue routine device interrogations as indicated. Encounter Summary: This report includes 2 total transmissions that werereceived between 2024-03-20 and 2024-03-21. 1 transmission was archived asnon- contributory. The remaining transmission was used to construct theconclusion and plan for this report. Battery, lead impedance, sensing amplitude and pacing threshold data wasreviewed. us Wesley Varghese M.D., Ph.D. CV IMPLANTABLE CARDI AC DEVICE Edited Result - Final * DX Chest AP or PA and Lateral 2 Views (03/19/2024 4:19 PM CDT) Only the most recent of8 resultswithin the time period is included. Anatomical Region Laterality Modality Chest, Thoracic RST LOS, Tho racic ARZ LOS, Thoracic FLA LOS N/A Digital Radiography Impressions 03/19/2024 4:24 PM CDT Since 03/18/2024, interval placement of left chest wall ICD with leads projecting over the right atrium and right ventricle. No pneumothorax. Mild bibasilar atelectasis. Tortuous aorta. Sternotomy. Mediastinal surgical clips. Old left rib fractures. Thoracic spondylosis. Narrative 03/19/2024 4:24 PM CDT EXAM: DX CHEST AP OR PA AND LATERAL 2 VIEWS Procedure Note Khang Coronel M.D. - 03/19/2024 EXAM: DX CHEST AP OR PA AND LATERAL 2 VIEWS IMPRESSION: Since 03/18/2024, interval placement of left chest wall ICD with leadsprojecting over the right atrium and right ventricle. No pneumothorax.Mild bibasilar atelectasis. Tortuous aorta. Sternotomy. Mediastinalsurgical clips. Old left rib fractures. Thoracic spondylosis. us Cindy Martinez APRN., M.S.N. IMG DIAGNOSTIC IMAGING PROCEDURES Final Result * ECG 12 Lead (03/19/2024 3:55 PM CDT) Only the most recent of14 resultswithin the time period is included. Ventricular Rate ECG/Min 73 BPM MUSE ND Interval 224 ms MUSE QRSD Interval 106 ms MUSE QT Interval 420 ms MUSE QTC Interval 462 ms MUSE R Foster -52 degrees MUSE T Wave Foster 77 degrees MUSE 03/19/2024 3:55 PM CDT 03/19/2024 4:26 PM CDT Impressions MUSE - 03/19/2024 4:26 PM CDT Atrial-paced rhythm Premature ventricular complexes Left anterior fascicular block Nonspecific ST and T wave abnormality When compared with ECG of 18-Mar-2024 11:46, Significant changes have occurred Reviewed by ARTI Griffin Narrative Procedure Note Basilio Laureano M.B.B.SSasha - 03/19/2024 IMPRESSION: Atrial-paced rhythm Premature ventricular complexes Left anterior fascicular block Nonspecific ST and T wave abnormality When compared with ECG of 18-Mar-2024 11:46, Significant changes have occurred Reviewed by ARTI Griffin us Manpreet Martinez APRNNUmberto., M.S.N. ECG ORDER TODD Final Result MUSE NA * DIAGNOSTIC EPS, ICD IMPLANT (03/19/2024 3:12 PM CDT) Anatomical Region Laterality Modality X-Ray Angiograph y 03/19/2024 12:4 9 PM CDT Narrative 03/20/2024 7:54 AM CDT For the complete report, see the Order-Level Documents. PROCEDURE TYPES 1. DIAGNOSTIC EPS 2. ICD IMPLANT PRE-PROCEDURE DIAGNOSIS 1. Tachycardia Ventricular Nonsustained (HCC) FINAL IMPRESSIONS 1. Inducible sustained ventricular tachycardia. 2. Post dual chamber internal cardioverter defibrillator (ICD). HRS NOTE EP STUDY POSITIVE Mr. Lehman was brought to the EP lab in the post-absorptive state. He was prepped and draped in the usual sterile fashion. Patient then was placed under sedation by Anesthesia team. Vascular access was obtained as mentioned elsewhere in this note. An octapolar catheter was placed in the right ventricle. Once catheters were in place, patient was given 2000 U of heparin. At baseline patient was in sinus rhythm with normal intracardiac intervals as mentioned below. He had frequent PVCs with a RBBB morphology and superior axis, all positive in the precordial leads. Programmed ventricular stimulation was performed from the right ventricular apex at 600 ms and [address] trains and up to 3 ventricular extra stimuli. With triplets we induced a fast monomorphic ventricular tachycardia degenerating in ventricular flutter and fibrillation. The monomorphic VT was similar in morphology with the PVC's. Patient collapsed hemodynamically. A single 200 J shock restored sinus rhythm. The EP study was terminated at this juncture. Catheter was removed from the body. Pressure applied to the vascular access sites. Post procedure measurements as in the appended note. There were no recognized complications. ICD IMPLANT After the EP study patient was prepped and re-draped in the usual sterile manner. He received prophylactic IV antibiotic. Under moderate sedation and local anesthesia, a left infraclavicular incision was made and a pre-pectoral pocket was formed using a combination of sharp, blunt, and cautery dissection. Using the Seldinger technique and guided by ultrasound, vascular access was obtained to the left subclavian/axillary vein without difficulties. The right ventricular lead then was advanced to the right ventricle and positioned in the right ventricular apex. At the final location, adequate sensing and pacing thresholds were observed (R-wave 14-17 mV, pacing threshold 0.7V @ 0.5ms). The atrial lead was placed at the area of the right atrial appendage. The leads' set screws were fully deployed under fluoroscopy. The atrial lead at the final location had adequate pacing threshold and sensing (P-wave 1.7-2.0 mV, pacing threshold 1.1V @0.5ms). There was no extra cardiac stimulation at full output in both leads. Both leads stayed in stable positions and were secured to the pectoral muscle using suture sleeves. The pocket was then irrigated with saline solution. The pulse generator was interfaced with the leads and the leads were secured using a wrench torque. On all leads, the connecting pin was visualized through the distal set screw which was tightened and tested under direct observation. Gentle tugging to each lead assured secure connections. The pulse generator was placed in the pocket with the excess leads coiled underneath. The generator was sutured to the underlying pectoral muscle. The pocket was then closed. The incision was covered with sterile dressing. Final fluoroscopy confirmed stable positions of both leads. DIAGNOSTIC/ABLATION INTRA-PROCEDURE - MAC Anesthesia - Central access completed - Catheter placement - Patient underwent ventricular pacing protocols. - Arrhythmia initiated - DC cardioversion/defibrillation was required 1 times - Proceed to ICD implantation For the complete report, see the Order-Level Documents. Procedure Note Kemal Miller M.D. - 03/20/2024 For the complete report, see the Order-Level Documents. PROCEDURE TYPES 1. DIAGNOSTIC EPS 2. ICD IMPLANT PRE-PROCEDURE DIAGNOSIS 1. Tachycardia Ventricular Nonsustained (HCC) FINAL IMPRESSIONS 1. Inducible sustained ventricular tachycardia. 2. Post dual chamber internal cardioverter defibrillator (ICD). HRS NOTE EP STUDY POSITIVE Mr. Lehman was brought to the EP lab in thepost-absorptive state. He was prepped and draped in the usual sterilefashion. Patient then was placed under sedation by Anesthesia team.Vascular access was obtained as mentioned elsewhere in this note. Anoctapolar catheter was placed in the right ventricle. Once catheters werein place, patient was given 2000 U of heparin. At baseline patient was in sinus rhythm with normal intracardiac intervalsas mentioned below. He had frequent PVCs with a RBBB morphology andsuperior axis, all positive in the precordial leads. Programmedventricular stimulation was performed from the right ventricular apex at600 ms and [address] and up to 3 ventricular extra stimuli. Withtriplets we induced a fast monomorphic ventricular tachycardiadegenerating in ventricular flutter and fibrillation. The monomorphic VTwas similar in morphology with the PVC's. Patient collapsedhemodynamically. A single 200 J shock restored sinus rhythm. The EP studywas terminated at this juncture. Catheter was removed from the body.Pressure applied to the vascular access sites. Post procedure measurementsas in the appended note. There were no recognized complications. ICD IMPLANT After the EP study patient was prepped and re-draped in the usual sterilemanner. He received prophylactic IV antibiotic. Under moderate sedationand local anesthesia, a left infraclavicular incision was made and apre-pectoral pocket was formed using a combination of sharp, blunt, andcautery dissection. Using the Seldinger technique and guided byultrasound, vascular access was obtained to the left subclavian/axillaryvein without difficulties. The right ventricular lead then was advanced tothe right ventricle and positioned in the right ventricular apex. At thefinal location, adequate sensing and pacing thresholds were observed(R-wave 14-17 mV, pacing threshold 0.7V @ 0.5ms). The atrial lead wasplaced at the area of the right atrial appendage. The leads' set screwswere fully deployed under fluoroscopy. The atrial lead at the finallocation had adequate pacing threshold and sensing (P-wave 1.7- 2.0 mV,pacing threshold 1.1V @0.5ms). There was no extra cardiac stimulation atfull output in both leads. Both leads stayed in stable positions and weresecured to the pectoral muscle using suture sleeves. The pocket was thenirrigated with saline solution. The pulse generator was interfaced withthe leads and the leads were secured using a wrench torque. On all leads,the connecting pin was visualized through the distal set screw which wastightened and tested under direct observation. Gentle tugging to each leadassured secure connections. The pulse generator was placed in the pocketwith the excess leads coiled underneath. The generator was sutured to theunderlying pectoral muscle. The pocket was then closed. The incision wascovered with sterile dressing. Final fluoroscopy confirmed stablepositions of both leads. DIAGNOSTIC/ABLATION INTRA-PROCEDURE - MAC Anesthesia - Central access completed - Catheter placement - Patient underwent ventricular pacing protocols. - Arrhythmia initiated - DC cardioversion/defibrillation was required 1 times - Proceed to ICD implantation For the complete report, see the Order-Level Documents. us Kemal Gu M.D. CV ELECTROPHYSIOLOG Y PROCS Edited Result - Final * CBC without Differential (03/18/2024 11:06 AM CDT) Only the most recent of20 resultswithin the time period is included. Hemoglobin 14.9 13.2 - 16.6 g/dL 03/18/2024 11:47 AM CDT DTL Hematocrit 45.9 38.3 - 48.6 % 03/18/2024 11:47 AM CDT DTL Erythrocytes 4.79 4.35 - 5.65 x10(12)/L 03/18/2024 11:47 AM CDT DTL MCV 95.8 78.2 - 97.9 fL 03/18/2024 11:47 AM CDT DTL RBC Distrib Width 13.9 11.8 - 14.5 % 03/18/2024 11:47 AM CDT DTL Platelet Count 145 135 - 317 x10(9)/L 03/18/2024 11:47 AM CDT DTL Leukocytes 6.4 3.4 - 9.6 x10(9)/L 03/18/2024 11:47 AM CDT DTL Blood (Blood, Venous) 03/18/2024 11:06 AM CDT 03/18/2024 11:29 AM CDT Kemal Gu M.D. LAB BLOOD ADD-ON Fi nal Result [facility] [address] [place] [address], [facility] [address] [place] [address] * Type and Screen (with Reflex Antibody ID) (03/18/2024 11:06 AM CDT) ABORh O Pos Not applicable 03/18/2024 12:55 PM CDT ETRM Antibody Screen Negative Negative 03/18/2024 1:07 PM CDT ETRM Type & Screen Expiration 03/21/2024 23:59 03/18/2024 12:55 PM CDT ETRM Testing Location [facility] DEFAULT 03/18/2024 11:44 AM CDT ETRM Blood (Blood, Venous) 03/18/2024 11:06 AM CDT 03/18/2024 11:44 AM CDT us Kemal Gu M.D. LAB BLOOD BANK TEST ORDERABLES Final Result [facility] [address] [place] [address], [place] ETRM [facility] [address] [place] [address] * (ABNORMAL) Comprehensive Metabolic Panel (03/18/2024 11:06 AM CDT) Only the most recent of5 resultswithin the time period is included. Potassium, S 4.6 3.6 - 5.2 mmol/L 03/18/2024 11:56 AM CDT DTL Sodium, S 142 135 - 145 mmol/L 03/18/2024 11:56 AM CDT DTL Chloride, S 104 98 - 107 mmol/L 03/18/2024 11:56 AM CDT DTL Bicarbonate, S 30(H) 22 - 29 mmol/L 03/18/2024 11:56 AM CDT DTL Anion Gap 8 7 - 15 03/18/2024 11:56 AM CDT DTL BUN (Blood Urea Nitrogen), S 18 8 - 24 mg/dL 03/18/2024 11:56 AM CDT DTL Creatinine 1.92(H) 0.74 - 1.35 mg/dL 03/18/2024 11:56 AM CDT DTL Estimated GFR (eGFR) 35(L) >=60 mL/min/BS A 03/18/2024 11:56 AM CDT DTL Comment: Estimated GFR calculated using the 2020 CKD_EPI creatinine equation. Calcium, Total, S 9.3 8.8 - 10.2 mg/dL 03/18/2024 11:56 AM CDT DTL Glucose, S 92 70 - 140 mg/dL 03/18/2024 11:56 AM CDT DTL Protein, Total, S 6.6 6.3 - 7.9 g/dL 03/18/2024 11:56 AM CDT DTL Albumin, S 4.3 3.5 - 5.0 g/dL 03/18/2024 11:56 AM CDT DTL Aspartate Aminotransferase (AST), S 18 8 - 48 U/L 03/18/2024 11:56 AM CDT DTL Alkaline Phosphatase, S 87 40 - 129 U/L 03/18/2024 11:56 AM CDT DTL Alanine Aminotransferase (ALT), S 11 7 - 55 U/L 03/18/2024 11:56 AM CDT DTL Bilirubin, Total, S 1.1 0.0 - 1.2 mg/dL 03/18/2024 11:56 AM CDT DTL Blood (Blood, Venous) 03/18/2024 11:06 AM CDT 03/18/2024 11:38 AM CDT Kemal Gu M.D. LAB BLOOD ADD-ON Fi nal Result [facility] [address] [place] [address], [facility] [address] [place] [address] * (TTE) 2D ECHO DOPPLER COLOR (03/18/2024 9:57 AM CDT) Ejection Fraction 55 MC CV EIMS Sinus of Valsalva 41 MC CV EIMS Sinotubular Junction 32 MC CV EIMS Wall Motion Score Index 1.06 MC CV EIMS LV End-Diastolic Diameter 52 MC CV EIMS LV End-Systolic Diameter 35 MC CV EIMS MV E Velocity 0.6 MC CV EIMS MV A Velocity 0.9 MC CV EIMS MV E/A 0.67 MC CV EIMS MV e' Velocity Medial 0.05 MC CV EIMS MV E/e' Medial 12 MC CV EIMS Left ventricular stroke volume index 40 MC CV EIMS Cardiac Output 4.33 MC CV EIMS Cardiac Index 2.2 MC CV EIMS Tricuspid Annular S 0.06 MC CV EIMS TR Vmax 2.5 MC CV EIMS RA Pressure 5 MC CV EIMS RV Systolic Pressure 30 MC CV EIMS Anatomical Region Laterality Modality Echocardiography 03/18/2024 8:48 AM CDT Impressions 03/18/2024 10:27 AM CDT Status post coronary artery bypass graft(s) (Linneus, 06-04-2017). LEFT VENTRICLE:Mildly enlarged left ventricular chamber size. Calculated 2-D linear left ventricular ejection fraction 55%. Regional wall motion abnormalities were present (see wall motion graphics). Left ventricular cardiac index 2.20 l/min/m2. Left ventricular stroke volume index 40 ml/m2. Increased concentric left ventricular wall thickness. Abnormal ventricular septal motion due to conduction. Normal left ventricular filling pressure. RIGHT VENTRICLE:Mildly enlarged right ventricular chamber size. Borderline reduced right ventricular systolic function. Estimated right ventricular systolic pressure 30 mmHg (right atrial pressure of 5 mmHg). ATRIA:Mildly enlarged left atrial size. Normal right atrial size. CARDIAC VALVES:Sclerotic aortic valve. Trivial aortic valve regurgitation. Mildly calcified mitral annulus. Mildly thickened mitral valve. Mild mitral valve regurgitation. Normal tricuspid valve. Mild tricuspid valve regurgitation. OTHER ECHO FINDINGS:Normal inferior vena cava size with normal inspiratory collapse (>50%). Normal sinus of Valsalva diameter of 41 mm. Upper limit of normal of the sinus of Valsalva for age, sex and BSA is 43 mm. Prominent epicardial fat layer. No pericardial effusion. No intracardiac mass or thrombus, but the left atrial appendage cannot be visualized adequately with transthoracic echo to exclude thrombus in this location. For the complete report, see the Order-Level Documents. Narrative 03/18/2024 10:27 AM CDT For the complete report, see the Order-Level Documents. Hemodynamics Heart Rate: 55 BPM Blood Pressure: 149 / 92 mmHg ECG: Sinus rhythm with ectopics, Bradycardia. Final Impressions 1. Mildly enlarged left ventricular chamber size, calculated 2-D linear ejection fraction 55%. 2. Mildly enlarged right ventricular chamber size, borderline reduced systolic function, estimated right ventricular systolic pressure 30 mmHg (right atrial pressure of 5 mmHg). 3. Normal left ventricular filling pressure. 4. Mild tricuspid valve regurgitation. 5. Mild mitral valve regurgitation. 6. Normal sinus of Valsalva diameter of 41 mm, upper limit of normal for age, sex and BSA is 43 mm. 7. Normal inferior vena cava size with normal inspiratory collapse (>50%). 8. No pericardial effusion. Procedure Note Kalin Garcia M.D. - 03/18/2024 For the complete report, see the Order-Level Documents. Hemodynamics Heart Rate: 55 BPM Blood Pressure: 149 / 92 mmHg ECG: Sinus rhythm with ectopics, Bradycardia. Final Impressions 1. Mildly enlarged left ventricular chamber size, calculated 2-D linearejection fraction 55%. 2. Mildly enlarged right ventricular chamber size, borderline reducedsystolic function, estimated right ventricular systolic pressure 30 mmHg(right atrial pressure of 5 mmHg). 3. Normal left ventricular filling pressure. 4. Mild tricuspid valve regurgitation. 5. Mild mitral valve regurgitation. 6. Normal sinus of Valsalva diameter of 41 mm, upper limit of normal forage, sex and BSA is 43 mm. 7. Normal inferior vena cava size with normal inspiratory collapse(>50%). 8. No pericardial effusion. Findings Status post coronary artery bypass graft(s) (Linneus, 06-04-2017). LEFT VENTRICLE:Mildly enlarged left ventricular chamber size. Calculated2-D linear left ventricular ejection fraction 55%. Regional wall motionabnormalities were present (see wall motion graphics). Left ventricularcardiac index 2.20 l/min/m2. Left ventricular stroke volume index 40ml/m2. Increased concentric left ventricular wall thickness. Abnormalventricular septal motion due to conduction. Normal left ventricularfilling pressure. RIGHT VENTRICLE:Mildly enlarged right ventricular chamber size. Borderlinereduced right ventricular systolic function. Estimated right ventricularsystolic pressure 30 mmHg (right atrial pressure of 5 mmHg). ATRIA:Mildly enlarged left atrial size. Normal right atrial size. CARDIAC VALVES:Sclerotic aortic valve. Trivial aortic valve regurgitation.Mildly calcified mitral annulus. Mildly thickened mitral valve. Mildmitral valve regurgitation. Normal tricuspid valve. Mild tricuspid valveregurgitation. OTHER ECHO FINDINGS:Normal inferior vena cava size with normal inspiratorycollapse (>50%). Normal sinus of Valsalva diameter of 41 mm. Upper limitof normal of the sinus of Valsalva for age, sex and BSA is 43 mm.Prominent epicardial fat layer. No pericardial effusion. No intracardiacmass or thrombus, but the left atrial appendage cannot be visualizedadequately with transthoracic echo to exclude thrombus in this location. For the complete report, see the Order-Level Documents. Kemal Gu M.D. CV ECHO PROCEDURES Final Result * (ABNORMAL) Basic Metabolic Panel (01/15/2024 4:33 PM CDT) Only the most recent of3 resultswithin the time period is included. Potassium, S 4.8 3.6 - 5.2 mmol/L 01/15/2024 5:28 PM CDT DTL Sodium, S 143 135 - 145 mmol/L 01/15/2024 5:28 PM CDT DTL Chloride, S 106 98 - 107 mmol/L 01/15/2024 5:28 PM CDT DTL Bicarbonate, S 28 22 - 29 mmol/L 01/15/2024 5:28 PM CDT DTL Anion Gap 9 7 - 15 01/15/2024 5:28 PM CDT DTL BUN (Blood Urea Nitrogen), S 21 8 - 24 mg/dL 01/15/2024 5:28 PM CDT DTL Creatinine 1.99(H) 0.74 - 1.35 mg/dL 01/15/2024 5:28 PM CDT DTL Estimated GFR (eGFR) 34(L) >=60 mL/min/BSA 01/15/2024 5:28 PM CDT DTL Comment: Estimated GFR calculated using the 2020 CKD_EPI creatinine equation. Calcium, Total, S 9.1 8.8 - 10.2 mg/dL 01/15/2024 5:28 PM CDT DTL Glucose, S 93 70 - 140 mg/dL 01/15/2024 5:28 PM CDT DTL Blood (Blood, Venous) 01/15/2024 4:33 PM CDT 01/15/2024 5:11 PM CDT us Neha Gardner M.D. LAB BLOOD ADD-ON Final Resul t [facility] [address] [place] [address], [facility] DTL [facility] [address] [place] [address] * HOLTER MONITOR - IN CLINIC DIVISION CHIEF (12/18/2023 12:08 PM CDT) Only the most recent of5 resultswithin the time period is included. Bradycardia Runs 0 count HOLTER SENTINEL Min Heart Rate 46 ALEIDA R SENTINEL Holter Pauses 0 count HOLTER SENTINEL SVE Max Per Hour Time [id number] HOLTER SENTINEL SVE Percent Beats 0 percent HOLTER SENTINEL VT Max Rate Time [id number] HOLTER SENTINEL Max Heart Rate 106 ALEIDA R SENTINEL VT Longest 5 beats HOLTER SENTINEL VT Runs 17 count HOLTER SENTINEL SVE Max Per Hour 77 count HOLTER SENTINEL SVE Total Beats 421 count HOLTER SENTINEL VE Total Beats 16,415 count ALEIDA R SENTINEL Recording Date [id number] HOLTER SENTINEL VT Max Rate 124 HOLTER SENTINEL Mean Heart Rate 71 HOLTER SENTINEL VE Percent Beats 12 percent HOLTER SENTINEL Max Heart Rate Time [id number] HOLTER SENTINEL VT Longest Time [id number] HOLTER SENTINEL VE Max Per Hour 1,346 count HOLTER SENTINEL Analysis Date 20,240,625 ALEIDA R SENTINEL Min Heart Rate Time [id number] HOLTER SENTINEL VE Max Per Hour Time [id number] HOLTER SENTINEL AF Count 0 count HOLTER SENTINEL SVT Runs 0 count HOLTER SENTINEL Tachycardia Runs 0 count HOLTER SENTINEL 12/18/2023 12:0 6 PM CDT Kemal Gu M.D. CV CARDIAC SERVICES PROCEDURES Final Result Performing Organization Address City/[facility]/ZIP Co de Phone Number HOLTER SENTINEL NA * MR head/brain wo con-Outside MR Neuro (09/19/2023 2:55 PM CDT) Only the most recent of4 resultswithin the time period is included. Narrative IIMS - 10/02/2023 4:32 PM CDT This order has been created and auto-finalized to support the import of outside images. If available, original interpretation can be found on the Media Tab in Chart Review, in Document Viewer, or as an image in QREADS. If a re-interpretation or overread is required please follow defined workflow. us Provider Not In System IMG MRI PROCEDURES Final Result IIMS NA * CT angio head-Outside CT Neuro (09/19/2023 9:55 AM CDT) Only the most recent of3 resultswithin the time period is included. Narrative IIMS - 10/02/2023 4:40 PM CDT This order has been created and auto-finalized to support the import of outside images. If available, original interpretation can be found on the Media Tab in Chart Review, in Document Viewer, or as an image in QREADS. If a re-interpretation or overread is required please follow defined workflow. us Provider Not In System IMG CT PROCEDURES Final R esult Performing Organization Address [facility] de Phone Number IIMS NA * CT ANGIO NECK-Outside Other (09/19/2023 9:45 AM CDT) Only the most recent of2 resultswithin the time period is included. Narrative IIMS - 11/08/2023 1:05 PM CDT This order has been created and auto-finalized to support the import of outside images. If available, original interpretation can be found on the Media Tab in Chart Review, in Document Viewer, or as an image in QREADS. If a re-interpretation or overread is required please follow defined workflow. us Provider Not In System IMG DIAGNOSTIC IMAGING ND OCEDURES Final Result Performing Organization Address [facility] de Phone Number IIMS NA * ECHO TTE LIMITED W CONTRAST W COLOR W DOPPLER-Outside US Card (09/19/2023 12:00 AM CDT) Narrative IIPA - 09/26/2023 4:22 PM CDT This order has been created and auto-finalized to support the import of outside images. If available, original interpretation can be found on the Media Tab in Chart Review, in Document Viewer, or as an image in QREADS. If a re-interpretation or overread is required please follow defined workflow. us Provider Not In System IMG NON RAD IMAGING PROCE DURES Final Result Performing Organization Address [facility] de Phone Number IIMS NA * MR Cardiac without and with IV Contrast (07/06/2023 12:32 PM WOOD GANG SAWYER) Only the most recent of2 resultswithin the time period is included. Anatomical Region Laterality Modality Cardiac, Cardiovascular RST LOS, Thoracic ARZ LOS, Cardiovascular FLA LOS N/A Magnetic Resonance Impressions 07/06/2023 2:46 PM WO[facility] GANG SAWYER 1. Linear mid-myocardial and subepicardial late enhancement of the basal to mid lateral, inferior, and inferoseptal segments with sparing of the majority of the subendocardium (e.g. series 9, image 5-8). While not definitive, these findings are more suggestive of an underlying nonischemic cardiomyopathy, such as genetic or idiopathic dilated cardiomyopathy, a large territory of prior healed myocarditis, or less likely cardiac sarcoidosis. The pattern and degree of late enhancement is similar compared to MRI on 03/21/2016, however improved image quality better shows predominant subendocardial sparing. 2. Normal left ventricular size with intraventricular dyssynchrony and mild global hypokinesis. LVEF 41%. 3. Normal right ventricular size and systolic function. RVEF 45%. Narrative 07/06/2023 2:46 PM WOOD GANG SAWYER EXAM: MR CARDIAC WITHOUT AND WITH IV CONTRAST COMPARISON: Cardiac PET perfusion from 01/07/2019, CT cardiac angiogram from 01/07/2019, cardiac MRI 03/21/2016 FINDINGS: Imaging series somewhat limited due to patient tiring with respiratory holds. LEFT VENTRICLE: Normal left ventricular chamber size. Normal wall thickness. Abnormal septal motion and generalized hypokinesis without other regional wall motion abnormalities. Delayed postcontrast images demonstrate linear mid myocardial and subepicardial late enhancement of the basal to mid lateral, inferior, and inferoseptal segments (e.g. Series 9, image 5-8). RIGHT VENTRICLE: Normal right ventricular chamber size. Normal systolic function. ATRIA: Qualitatively, mildly enlarged left and normal right atrial size. VALVES: Aortic Valve: Normal cusp thickness. Tiny jet of regurgitation. Mitral Valve: Normal leaflet thickness. Small jet of regurgitation. Pulmonic Valve: Not well visualized. Tricuspid Valve: Normal leaflet thickness. Small jet of regurgitation. PERICARDIUM: Normal pericardial thickness. No pericardial effusion. No abnormal pericardial enhancement. ADDITIONAL FINDINGS: Trace right pleural effusion with associated probable mild linear subsegmental atelectasis or scarring. Bilateral renal cysts. Sternotomy. MEASUREMENTS: Patient weight: 91.4 kg Patient height: 166.2 cm BSA: 2.1 m2 Series 5: LEFT VENTRICLE: LV End Diastolic Volume = 115mL; Index = 56mL/m2 (normal = 55-115) LV End Systolic Volume = 68mL; Index = 33mL/m2 (normal = 20-52) LV Stroke Volume = 47mL; Index = 23mL/m2 (normal = 29-69) LV Ejection Fraction = 41% (normal = 48-68) LV End Diastolic Mass = 120g; Index = 58g/m2 (normal = 35-71) Series 5: RIGHT VENTRICLE: RV End Diastolic Volume = 101mL; Index = 49mL/m2 (normal = 59-127) RV End Systolic Volume = 56mL; Index = 27mL/m2 (normal = 21-65) RV Stroke Volume = 45mL; Index = 22mL/m2 (normal = 32-68) RV Ejection Fraction = 45% (normal = 42-66) Procedure Note Meghna Moeller M.D. - 07/06/2023 EXAM: MR CARDIAC WITHOUT AND WITH IV CONTRAST COMPARISON: Cardiac PET perfusion from 01/07/2019, CT cardiac angiogramfrom 01/07/2019, cardiac MRI 03/21/2016 FINDINGS: Imaging series somewhat limited due to patient tiring withrespiratory holds. LEFT VENTRICLE: Normal left ventricular chamber size. Normal wall thickness. Abnormalseptal motion and generalized hypokinesis without other regional wallmotion abnormalities. Delayed postcontrast images demonstrate linear mid myocardial andsubepicardial late enhancement of the basal to mid lateral, inferior, andinferoseptal segments (e.g. Series 9, image 5-8). RIGHT VENTRICLE: Normal right ventricular chamber size. Normal systolic function. ATRIA: Qualitatively, mildly enlarged left and normal right atrial size. VALVES: Aortic Valve: Normal cusp thickness. Tiny jet of regurgitation. Mitral Valve: Normal leaflet thickness. Small jet of regurgitation. Pulmonic Valve: Not well visualized. Tricuspid Valve: Normal leaflet thickness. Small jet of regurgitation. PERICARDIUM: Normal pericardial thickness. No pericardial effusion. No abnormalpericardial enhancement. ADDITIONAL FINDINGS: Trace right pleural effusion with associated probable mild linearsubsegmental atelectasis or scarring. Bilateral renal cysts.Sternotomy. MEASUREMENTS: Patient weight: 91.4 kg Patient height: 166.2 cm BSA: 2.1 m2 Series 5: LEFT VENTRICLE: LV End Diastolic Volume = 115mL; Index = 56mL/m2 (normal = 55-115) LV End Systolic Volume = 68mL; Index = 33mL/m2 (normal = 20-52) LV Stroke Volume = 47mL; Index = 23mL/m2 (normal = 29-69) LV Ejection Fraction = 41% (normal = 48-68) LV End Diastolic Mass = 120g; Index = 58g/m2 (normal = 35-71) Series 5: RIGHT VENTRICLE: RV End Diastolic Volume = 101mL; Index = 49mL/m2 (normal = 59-127) RV End Systolic Volume = 56mL; Index = 27mL/m2 (normal = 21-65) RV Stroke Volume = 45mL; Index = 22mL/m2 (normal = 32-68) RV Ejection Fraction = 45% (normal = 42-66) IMPRESSION: 1. Linear mid-myocardial and subepicardial late enhancement of the basalto mid lateral, inferior, and inferoseptal segments with sparing of themajority of the subendocardium (e.g. series 9, image 5-8). While notdefinitive, these findings are more suggestive of an underlying nonischemic cardiomyopathy, such as genetic oridiopathic dilated cardiomyopathy, a large territory of prior healedmyocarditis, or less likely cardiac sarcoidosis. The pattern and degree oflate enhancement is similar compared to MRI on 03/21/2016, however improved image quality better showspredominant subendocardial sparing. 2. Normal left ventricular size with intraventricular dyssynchrony andmild global hypokinesis. LVEF 41%. 3. Normal right ventricular size and systolic function. RVEF 45%. us Neha Gardner M.D. [facility] MRI PROCEDURES Final Res ult * Lipid Panel (07/06/2023 10:59 AM WO[facility] GANG SAWYER) Only the most recent of8 resultswithin the time period is included. Triglycerides 121 mg/dL 07/06/2023 11:55 AM [facility] DTL Comment: ----REFERENCE VALUE---- Normal: <150 mg/dL Borderline High: 150-199 mg/dL High: 200-499 mg/dL Very High: > or =500 mg/dL Cholesterol, Total 143 mg/dL 2023 11:55 AM [facility] DTL Comment: ----REFERENCE VALUE---- Desirable: < 200 mg/dL Borderline High: 200 - 239 mg/dL High: > or = 240 mg/dL Cholesterol, LDL, Calculated 62 mg/dL 07/06/2023 11:55 AM [facility] GANG [facility]WY[facility] DTL Comment: ----REFERENCE VALUE---- Desirable: <100 mg/dL Above Desirable: 100-129 mg/dL Borderline High: 130-159 mg/dL High: 160-189 mg/dL Very High: >=190 mg/dL ----ADDITIONAL INFORMATION---- LDL cholesterol calculated using the Madrid/NIH equation. Cholesterol, HDL, S 60 >=40 mg/dL 07/06/2023 11:55 AM [facility] GANG [facility]WY[facility] DTL Cholesterol, Non-HDL, Calculated 83 mg/dL 07/06/2023 11:55 AM [facility]ANG [facility] DTL Comment: ----REFERENCE VALUE---- Desirable: <130 mg/dL Above Desirable: 130-159 mg/dL Borderline High: 160-189 mg/dL High: 190-219 mg/dL Very High: > or =220 mg/dL Fasting (8 HR or more) No 07/06/2023 11:37 AM [facility] GANG [facility]WYER DTL Blood (Blood, Venous) 07/06/2023 10:59 AM WO[facility] GANG SAWYER 07/06/2023 11:37 AM [facility] GANG [facility]ER us Neha Gardner M.D. LAB BLOOD ADD-ON Final Resul t [facility] [address] [place] [address], [facility] [address] [place] [address] * ALT (Alanine Aminotransferase) (07/06/2023 10:59 AM WOOD GANG SAWYER) Only the most recent of2 resultswithin the time period is included. Alanine Aminotransferase (ALT), S 14 7 - 55 U/L 07/06/2023 11:55 AM [facility] GANG SAWYER DTL Blood (Blood, Venous) 07/06/2023 10:59 AM WO[facility] GANG SAWYER 07/06/2023 11:37 AM [facility] GANG SAWYER us Neha Gardner M.D. LAB BLOOD ADD-ON Final Resul t [facility] [address] [place] [address], [facility] [address] [place] [address] * Pulmonary Function Tests (06/15/2023 10:28 AM WOOD GANG SAWYER) PostFVC 3.53 L 06/15/2023 12:58 PM [facility] SUITE PostFEV1 2.25 L 06/15/2023 12:58 PM [facility] FEV1/FVC POST 63.77 % 06/15/2023 12:58 PM [facility] FEF 25-75 % POST 1.14 L/s 06/15/2023 12:58 PM [facility] PEF POST 7.34 L/s 06/15/2023 12:58 PM [facility] PIF POST 6.44 L/s 06/15/2023 12:58 PM [facility] SUITE FEF 50 % FIF 50 POST 20.99 % 06/15/2023 12:58 PM [facility] FET POST 11.81 sec 06/15/2023 12:58 PM [facility] TLC 6.06 L 06/15/2023 12:58 PM [facility] FRCPLETH PROVBASE 3.84 L 06/15/2023 12:58 PM [facility] SUITE RV 2.62 L 06/15/2023 12:58 PM [facility] RV % TLC PRE 43.31 % 06/15/2023 12:58 PM [facility] SUITE DLCO 22.57 ml/(min*mm Hg) 06/15/2023 12:58 PM [facility] DLCOc 21.97 ml/(min*mm Hg) 06/15/2023 12:58 PM [facility] HB 15.60 g(Hb)/dL 06/15/2023 12:58 PM [facility] VA 5.98 L 06/15/2023 12:58 PM [facility] FVC 3.07 L 06/15/2023 12:58 PM [facility] FEV1 1.91 L 06/15/2023 12:58 PM [facility] FEV1/FVC 62.18 % 06/15/2023 12:58 PM [facility] TIH24-10% 0.91 L/s 06/15/2023 12:58 PM [facility] PEF PRE 6.25 L/s 06/15/2023 12:58 PM [facility] PIF PRE 6.02 L/s 06/15/2023 12:58 PM [facility] FEF 50 % FIF 50 PRE 17.83 % 06/15/2023 12:58 PM [facility] FET PRE 12.37 sec 06/15/2023 12:58 PM [facility] SUBSTANCE POST Albuterol 06/15/2023 12:58 PM [facility] 06/15/2023 10:2 8 AM [facility] Impressions [place] - 06/15/2023 12:58 PM [facility] The FEV1 is mildly reduced with the FEV1/ FVC ratio near the lowest limit of normal suggesting that this is on the basis of airway obstruction as there is also an acute improvement in expiratory flow and volume with bronchodilator. Lung volumes, diffusing capacity, and oxygen saturation at rest are within normal limits. Compared to previous testing done on 01/21/2019, there has been and improvement in post bronchodilator FVC. Narrative Procedure Note Sunny Chowdhury M.D. - 06/15/2023 IMPRESSION: The FEV1 is mildly reduced with the FEV1/ FVC ratio near the lowest limitof normal suggesting that this is on the basis of airway obstruction asthere is also an acute improvement in expiratory flow and volume withbronchodilator. Lung volumes, diffusing capacity, and oxygen saturation at rest are within normallimits. Compared to previous testing done on 01/21/2019, there has beenand improvement in post bronchodilator FVC. us Neha Gardner M.D. PFT ORDERABLES Final Result Performing Organization Address City/[facility]/ZIP Co de Phone Number [place] [facility] SU[address] NA * Thyroid Function [place] (06/15/2023 8:28 AM [facility]) Only the most recent of3 resultswithin the time period is included. TSH, Sensitive 3.5 0.3 - 4.2 mIU/L 06/15/2023 9:38 AM [facility] DTL Blood (Blood, Venous) 06/15/2023 8:28 AM [facility] 06/15/2023 9:13 AM [facility] us Neha Gardner M.D. LAB BLOOD ADD-ON Final Resul t Performing Organization Address [facility] Co de Phone Number [facility] [address] [facility] [address] [place] [address] * Magnesium (06/15/2023 8:28 AM [facility]) Only the most recent of4 resultswithin the time period is included. Magnesium, S 2.2 1.7 - 2.3 mg/dL 06/15/2023 9:38 AM [facility] DTL Blood (Blood, Venous) 06/15/2023 8:28 AM [facility] 06/15/2023 9:13 AM [facility] us Neha Gardner M.D. LAB BLOOD ADD-ON Final Resul t Performing Organization Address City/[facility] Co de Phone Number [facility] [address] [place] [address], [facility] DTL [facility] [address] [place] [address] * (ABNORMAL) Prothrombin Time (PT) (06/15/2023 8:27 AM [facility]) Only the most recent of18 resultswithin the time period is included. Prothrombin Time, P 36.9(H) 9.4 - 12.5 sec 06/15/2023 9:17 AM [facility] DTL INR 3.3 0.9 - 1.1 06/15/2023 9:17 AM [facility] DTL Comment: ----ADDITIONAL INFORMATION---- Standard intensity warfarin therapeutic range: 2.0 to 3.0 High intensity warfarin therapeutic range: 2.5 to 3.5 Blood (Blood, Venous) 06/15/2023 8:27 AM [facility] 06/15/2023 8:55 AM [facility] us Neha Gardner M.D. LAB BLOOD ADD-ON Final Resul t [facility] [address] [place] [address], [facility] [address] [place] [address] * (TTE) 2D ECHO DOPPLER COLOR (05/23/2023 1:44 PM [facility]) Ejection Fraction 56 MC CV EIMS Sinus of Valsalva 43 MC CV EIMS Mid-Ascending Aorta 44 MC CV EIMS Wall Motion Score Index 1 MC CV EIMS LV End-Diastolic Diameter 59 MC CV EIMS LV End-Systolic Diameter 39 MC CV EIMS LV End-Diastolic Volume 146 MC CV EIMS LV End-Systolic Volume 62 MC CV EIMS Left ventricular stroke volume index 35 MC CV EIMS Cardiac Output 5.11 MC CV EIMS Cardiac Index 2.5 MC CV EIMS TR Vmax 2.28 MC CV EIMS RA Pressure 5 MC CV EIMS RV Systolic Pressure 26 MC CV EIMS IVC Diameter 13 MC CV EIMS AV mean gradient 6 MC CV EIMS Aortic valve area 2.28 MC CV EIMS Aortic Valve Dimensionless Index 0.5 MC CV EIMS Aortic Valve Systolic Peak Velocity 1.6 MC CV EIMS Anatomical Region Laterality Modality Echocardiography 05/23/2023 1:10 PM [facility] Impressions 05/23/2023 11:12 PM [facility] Status post coronary artery bypass graft(s). Frequent atrial ectopy was noted during the exam. LEFT VENTRICLE:Mildly enlarged left ventricular chamber size. Increased concentric left ventricular wall thickness. Calculated 2-D linear left ventricular ejection fraction 56%. Left ventricular stroke volume index 35 ml/m2. Left ventricular cardiac index 2.50 l/min/m2. Normal left ventricular filling pressure. RIGHT VENTRICLE:Mildly enlarged right ventricular chamber size. Borderline reduced right ventricular systolic function. Estimated right ventricular systolic pressure 26 mmHg (systolic blood pressure 165 mmHg). ATRIA:Mildly enlarged left atrial size by visual estimate. Normal right atrial size by visual estimate. CARDIAC VALVES:Trileaflet aortic valve. Sclerotic aortic valve. Trivial aortic valve regurgitation. Mildly calcified mitral annulus. Mildly thickened mitral valve. Mild mitral valve regurgitation. Pulmonary valve not well visualized. Normal pulmonary valve systolic velocities. No pulmonary valve regurgitation. Normal tricuspid valve. Mild tricuspid valve regurgitation. OTHER ECHO FINDINGS:Normal inferior vena cava size with normal inspiratory collapse (>50%). Borderline enlarged sinus of Valsalva diameter of 43 mm. Upper limit of normal of the sinus of Valsalva for age, sex and BSA is 43 mm. Enlarged mid ascending aorta diameter of 44 mm. Upper limit of normal of the mid ascending aorta, for age, sex and BSA is 43 mm. No intracardiac mass or thrombus, but the left atrial appendage cannot be visualized adequately with transthoracic echo to exclude thrombus in this location. No pericardial effusion. Prominent epicardial fat layer. For the complete report, see the Order-Level Documents. Narrative 05/23/2023 11:12 PM [facility] For the complete report, see the Order-Level Documents. Hemodynamics Heart Rate: 81 BPM Blood Pressure: 165 / 81 mmHg Final Impressions 1. Mildly enlarged left ventricular chamber size. Ejection fraction 56% with [id number] variability in setting of frequent ventricular ectopic beats. No regional wall motion abnormalities. 2. Normal left ventricular filling pressure. 3. Mildly enlarged right ventricular chamber size, borderline reduced systolic function. 4. Estimated right ventricular systolic pressure 26 mmHg (right atrial pressure of 5 mmHg). 5. Borderline enlarged sinus of Valsalva diameter of 43 mm, upper limit of normal for age, sex and BSA is 43 mm. 6. Enlarged mid ascending aorta diameter of 44 mm, upper limit of normal for age, sex and BSA is 43 mm. 7. No pericardial effusion. 8. Compared to the report of 06/09/2022 the following changes have occurred: ejection fraction has improved. Side by side comparison of images performed. Procedure Note Manpreet Lanier M.D. - 05/23/2023 For the complete report, see the Order-Level Documents. Hemodynamics Heart Rate: 81 BPM Blood Pressure: 165 / 81 mmHg Final Impressions 1. Mildly enlarged left ventricular chamber size. Ejection fraction 56%with [id number] variability in setting of frequent ventricular ectopicbeats. No regional wall motion abnormalities. 2. Normal left ventricular filling pressure. 3. Mildly enlarged right ventricular chamber size, borderline reducedsystolic function. 4. Estimated right ventricular systolic pressure 26 mmHg (right atrialpressure of 5 mmHg). 5. Borderline enlarged sinus of Valsalva diameter of 43 mm, upper limit ofnormal for age, sex and BSA is 43 mm. 6. Enlarged mid ascending aorta diameter of 44 mm, upper limit of normalfor age, sex and BSA is 43 mm. 7. No pericardial effusion. 8. Compared to the report of 06/09/2022 the following changes haveoccurred: ejection fraction has improved. Side by side comparison ofimages performed. Findings Status post coronary artery bypass graft(s). Frequent atrial ectopy wasnoted during the exam. LEFT VENTRICLE:Mildly enlarged left ventricular chamber size. Increasedconcentric left ventricular wall thickness. Calculated 2-D linear leftventricular ejection fraction 56%. Left ventricular stroke volume index 35ml/m2. Left ventricular cardiac index 2.50 l/min/m2. Normal leftventricular filling pressure. RIGHT VENTRICLE:Mildly enlarged right ventricular chamber size. Borderlinereduced right ventricular systolic function. Estimated right ventricularsystolic pressure 26 mmHg (systolic blood pressure 165 mmHg). ATRIA:Mildly enlarged left atrial size by visual estimate. Normal rightatrial size by visual estimate. CARDIAC VALVES:Trileaflet aortic valve. Sclerotic aortic valve. Trivialaortic valve regurgitation. Mildly calcified mitral annulus. Mildlythickened mitral valve. Mild mitral valve regurgitation. Pulmonary valvenot well visualized. Normal pulmonary valve systolic velocities. Nopulmonary valve regurgitation. Normal tricuspid valve. Mild tricuspidvalve regurgitation. OTHER ECHO FINDINGS:Normal inferior vena cava size with normal inspiratorycollapse (>50%). Borderline enlarged sinus of Valsalva diameter of 43 mm.Upper limit of normal of the sinus of Valsalva for age, sex and BSA is 43mm. Enlarged mid ascending aorta diameter of 44 mm. Upper limit of normalof the mid ascending aorta, for age, sex and BSA is 43 mm. No intracardiacmass or thrombus, but the left atrial appendage cannot be visualizedadequately with transthoracic echo to exclude thrombus in this location.No pericardial effusion. Prominent epicardial fat layer. For the complete report, see the Order-Level Documents. us Neha Gardner M.D. CV ECHO PROCEDURES Final Res ult * (ABNORMAL) NT-Pro B-Type Natriuretic Peptide (BNP) (05/23/2023 12:26 PM [facility]) Only the most recent of5 resultswithin the time period is included. NT-Pro BNP 996(H) <=540 pg/mL 05/23/2023 1:34 PM [facility] DTL Comment: NT-proBNP values less than 300 pg/mL have a 99% negative predictive value for excluding acute congestive heart failure. A cutoff of 1200 pg/mL for patients with an eGFR<60 yields a diagnostic sensitivity and specificity of 89% and 72% for acute congestive heart failure. A diagnostic NT-proBNP cutoff of 1800 pg/mL has been suggested in adults over 75 years of age in the absence of renal failure. Blood (Blood, Venous) 05/23/2023 12:26 PM [facility] 05/23/2023 12:59 PM [facility] us Neha Gardner M.D. LAB BLOOD ADD-ON Final Resul t [facility] [address] [place] [address], [place] DTL [facility] [address] [place] [address] * (ABNORMAL) Hemoglobin A1c (05/23/2023 12:26 PM [facility]) Only the most recent of4 resultswithin the time period is included. Hemoglobin A1c, B 6.2(H) 4.0 - 5.6 % 05/23/2023 1:28 PM [facility] DTL Comment: Hemoglobin A1c values of 5.7-6.4 percent indicate an increased risk for developing diabetes mellitus. In diabetic patients, HbA1c goals should be discussed with healthcare provider. Blood (Blood, Venous) 05/23/2023 12:26 PM [facility] 05/23/2023 1:00 PM [facility] us Neha Gardner M.D. LAB BLOOD ADD-ON Final Resul t [facility] [address] [place] [address], [place] DTL [facility] [address] [place] [address] * (TTE) 2D ECHO DOPPLER COLOR AND CONTRAST (06/09/2022 4:08 PM [facility]) Pathologist [facility] Ejection Fraction 49 MC CV EIMS Sinus of Valsalva 43 MC CV EIMS Mid-Ascending Aorta 44 MC CV EIMS Wall Motion Score Index 1.31 MC CV EIMS LV Mass Index 128 MC CV EIMS LV End-Diastolic Diameter 54 MC CV EIMS LV End-Systolic Diameter 38 MC CV EIMS LV End-Diastolic Volume 143 MC CV EIMS LV End-Systolic Volume 73 MC CV EIMS MV E Velocity 0.60 MC CV EIMS MV A Velocity 0.90 MC CV EIMS MV E/A 0.67 MC CV EIMS MV e' Velocity Medial 0.05 MC CV EIMS MV e' Velocity Lateral 0.14 MC CV EIMS MV E/e' Medial 12 MC CV EIMS MV E/e' Lateral 4.30 MC CV EIMS Left ventricular stroke volume index 41 MC CV EIMS Cardiac Output 5.68 MC CV EIMS Cardiac Index 2.93 MC CV EIMS LV Interventricular Septal Wall Thickness 11 MC CV EIMS LV Posterior Wall Thickness 12 MC CV EIMS LV Relative Wall Thickness 44 MC CV EIMS TAPSE 12 MC CV EIMS Tricuspid Annular S 0.06 MC CV EIMS TR Vmax 2.48 MC CV EIMS RA Pressure 5 MC CV EIMS RV Systolic Pressure 30 MC CV EIMS AV mean gradient 6 MC CV EIMS Aortic valve area 2.51 MC CV EIMS Aortic Valve Dimensionless Index 0.61 MC CV EIMS MV mean gradient 2 MC CV EIMS Aortic Valve Systolic Peak Velocity 1.60 MC CV EIMS Anatomical Region Laterality Modality Echocardiography 06/09/2022 2:39 PM [facility] Impressions 06/09/2022 4:12 PM [facility] Status post coronary artery bypass graft(s). Frequent atrial ectopy was noted during the exam. LEFT VENTRICLE:Mildly enlarged left ventricular chamber size. Increased concentric left ventricular wall thickness. Left ventricular mass index by 2D 128 g/m2. Calculated 2-D biplane volumetric left ventricular ejection fraction of 49% with the use of ultrasound enhancing agent. Left ventricular stroke volume index 41 ml/m2. Left ventricular cardiac index 2.93 l/min/m2. Regional wall motion abnormalities were present (see wall motion graphics). Grade 1/3 left ventricular diastolic dysfunction, consistent with low to normal left ventricular filling pressure at rest. RIGHT VENTRICLE:Mildly enlarged right ventricular chamber size. Borderline reduced right ventricular systolic function. Estimated right ventricular systolic pressure 30 mmHg (systolic blood pressure 156 mmHg). ATRIA:Mildly enlarged left atrial size by visual estimate. Normal right atrial size by visual estimate. CARDIAC VALVES:Trileaflet aortic valve. Sclerotic aortic valve. Trivial aortic valve regurgitation. Mildly calcified mitral annulus. Mildly thickened mitral valve. Mild mitral valve regurgitation. Pulmonary valve not well visualized. Normal pulmonary valve systolic velocities. No pulmonary valve regurgitation. Normal tricuspid valve. Mild tricuspid valve regurgitation. OTHER ECHO FINDINGS:Normal inferior vena cava size with normal inspiratory collapse (>50%). Borderline enlarged sinus of Valsalva diameter of 43 mm. Upper limit of normal of the sinus of Valsalva for age, sex and BSA is 43 mm. Enlarged mid ascending aorta diameter of 44 mm. Upper limit of normal of the mid ascending aorta, for age, sex and BSA is 42 mm. Abdominal aorta incompletely visualized. Imaging inadequate for detection of atrial level shunt by color flow imaging. No intracardiac mass or thrombus, but the left atrial appendage cannot be visualized adequately with transthoracic echo to exclude thrombus in this location. No pericardial effusion. Prominent epicardial fat layer. For the complete report, see the Order-Level Documents. Narrative 06/09/2022 4:12 PM [facility] For the complete report, see the Order-Level Documents. Hemodynamics Heart Rate: 69 BPM Blood Pressure: 156 / 92 mmHg ECG: Sinus rhythm with ectopics, LAFB Final Impressions 1. Echo findings are consistent with hypertensive heart disease and coronary artery disease with mild degenerative aortic valve disease. 2. Calculated 2-D biplane volumetric left ventricular ejection fraction of 49% with the use of ultrasound enhancing agent. 3. Left ventricular cardiac index 2.93 l/min/m2. 4. Grade 1/3 left ventricular diastolic dysfunction, consistent with low to normal left ventricular filling pressure at rest. 5. Estimated right ventricular systolic pressure 30 mmHg (systolic blood pressure 156 mmHg). 6. No intracardiac mass or thrombus, but the left atrial appendage cannot be visualized adequately with transthoracic echo to exclude thrombus in this location. 7. No pericardial effusion. 8. Prominent epicardial fat layer. Procedure Note Miguel Mcnamara M.D. - 06/09/2022 For the complete report, see the Order-Level Documents. Hemodynamics Heart Rate: 69 BPM Blood Pressure: 156 / 92 mmHg ECG: Sinus rhythm with ectopics, LAFB Final Impressions 1. Echo findings are consistent with hypertensive heart disease andcoronary artery disease with mild degenerative aortic valve disease. 2. Calculated 2-D biplane volumetric left ventricular ejection fraction of49% with the use of ultrasound enhancing agent. 3. Left ventricular cardiac index 2.93 l/min/m2. 4. Grade 1/3 left ventricular diastolic dysfunction, consistent with lowto normal left ventricular filling pressure at rest. 5. Estimated right ventricular systolic pressure 30 mmHg (systolic bloodpressure 156 mmHg). 6. No intracardiac mass or thrombus, but the left atrial appendage cannotbe visualized adequately with transthoracic echo to exclude thrombus inthis location. 7. No pericardial effusion. 8. Prominent epicardial fat layer. Findings Status post coronary artery bypass graft(s). Frequent atrial ectopy wasnoted during the exam. LEFT VENTRICLE:Mildly enlarged left ventricular chamber size. Increasedconcentric left ventricular wall thickness. Left ventricular mass index by2D 128 g/m2. Calculated 2-D biplane volumetric left ventricular ejectionfraction of 49% with the use of ultrasound enhancing agent. Leftventricular stroke volume index 41 ml/m2. Left ventricular cardiac index2.93 l/min/m2. Regional wall motion abnormalities were present (see wallmotion graphics). Grade 1/3 left ventricular diastolic dysfunction,consistent with low to normal left ventricular filling pressure at rest. RIGHT VENTRICLE:Mildly enlarged right ventricular chamber size. Borderlinereduced right ventricular systolic function. Estimated right ventricularsystolic pressure 30 mmHg (systolic blood pressure 156 mmHg). ATRIA:Mildly enlarged left atrial size by visual estimate. Normal rightatrial size by visual estimate. CARDIAC VALVES:Trileaflet aortic valve. Sclerotic aortic valve. Trivialaortic valve regurgitation. Mildly calcified mitral annulus. Mildlythickened mitral valve. Mild mitral valve regurgitation. Pulmonary valvenot well visualized. Normal pulmonary valve systolic velocities. Nopulmonary valve regurgitation. Normal tricuspid valve. Mild tricuspidvalve regurgitation. OTHER ECHO FINDINGS:Normal inferior vena cava size with normal inspiratorycollapse (>50%). Borderline enlarged sinus of Valsalva diameter of 43 mm.Upper limit of normal of the sinus of Valsalva for age, sex and BSA is 43mm. Enlarged mid ascending aorta diameter of 44 mm. Upper limit of normalof the mid ascending aorta, for age, sex and BSA is 42 mm. Abdominal aortaincompletely visualized. Imaging inadequate for detection of atrial levelshunt by color flow imaging. No intracardiac mass or thrombus, but theleft atrial appendage cannot be visualized adequately with transthoracicecho to exclude thrombus in this location. No pericardial effusion.Prominent epicardial fat layer. For the complete report, see the Order-Level Documents. us Neha Gardner M.D. CV ECHO PROCEDURES Final Res ult * (ABNORMAL) CBC with Differential, Blood (06/09/2022 11:37 AM [facility]) Only the most recent of3 resultswithin the time period is included. Hemoglobin 15.3 13.2 - 16.6 g/dL 06/09/2022 12:24 PM [facility] DTL Hematocrit 48.9(H) 38.3 - 48.6 % 06/09/2022 12:24 PM [facility] DTL Erythrocytes 5.31 4.35 - 5.65 x10(12)/L 06/09/2022 12:24 PM [facility] DTL MCV 92.1 78.2 - 97.9 fL 06/09/2022 12:24 PM [facility] DTL RBC Distrib Width 14.2 11.8 - 14.5 % 06/09/2022 12:24 PM [facility] DTL Platelet Count 201 135 - 317 x10(9)/L 06/09/2022 12:24 PM [facility] DTL Leukocytes 5.9 3.4 - 9.6 x10(9)/L 06/09/2022 12:24 PM [facility] DTL Neutrophils 3.20 1.56 - 6.45 x10(9)/L 06/09/2022 12:24 PM [facility] DTL Lymphocytes 1.79 0.95 - 3.07 x10(9)/L 06/09/2022 12:24 PM [facility] DTL Monocytes 0.62 0.26 - 0.81 x10(9)/L 06/09/2022 12:24 PM [facility] DTL Eosinophils 0.24 0.03 - 0.48 x10(9)/L 06/09/2022 12:24 PM [facility] DTL Basophils <0.03 0.01 - 0.08 x10(9)/L 06/09/2022 12:24 PM [facility] DTL Blood (Blood, Venous) 06/09/2022 11:37 AM [facility] 06/09/2022 12:15 PM [facility] us Neha Gardner M.D. LAB BLOOD ADD-ON Final Resul t Performing Organization Address City/[facility]/[place] [address], [facility] [place] [address] * US Abd Aortic Aneurysm Screen-Outside US Body (03/17/2022 8:10 AM CDT) Narrative [facility] - 05/10/2022 1:22 PM [facility] This order has been created and auto-finalized to support the import of outside images. If available, original interpretation can be found on the Media Tab in Chart Review, in Document Viewer, or as an image in QREADS. If a re-interpretation or overread is required please follow defined workflow. us Provider Not In System IMG US PROCEDURES Final R esult Performing Organization Address City/[facility]/ZIP Co de Phone Number [facility] NA * KNEE, LEFT 1 or 2V-Outside Skeletal Xray (11/24/2021 9:15 AM CDT) Only the most recent of3 resultswithin the time period is included. Narrative [facility] - 05/10/2022 1:22 PM [facility] This order has been created and auto-finalized to support the import of outside images. If available, original interpretation can be found on the Media Tab in Chart Review, in Document Viewer, or as an image in QREADS. If a re-interpretation or overread is required please follow defined workflow. us Provider Not In System IMG DIAGNOSTIC IMAGING ND OCEDURES Final Result Performing Organization Address [facility] Co de Phone Number [facility] NA * (ABNORMAL) SARS Coronavirus-2 RNA, V Symptomatic (07/05/2021 2:52 PM [facility]) SARS-CoV-2 Specimen Source Swab, Nasopharynx 07/05/2021 11:04 PM [facility] SARS CoV-2 RNA, TMA Detected(A) Undetected 07/05/2021 11:04 PM [facility] Comment: SARS-CoV-2 RNA present. ----ADDITIONAL INFORMATION---- This molecular amplification test was performed using the Aptima SARS-CoV-2 assay ([employer] on the [employer] System under emergency use authorization (EUA) by the U.S. Food and Drug Administration. Fact sheets for this EUA assay can be found at the following links: For Healthcare Providers: https://www.fda.gov/media/648568/download For Patients: https://www.fda.gov/media/275158/download Varies (Nasopharynx) 07/05/2021 2:52 PM WO[employer] GANG SAWYER 07/05/2021 5:13 PM [employer]WYER us Tana Brunner M.D. LAB MICROBIOLOGY - GENERAL ORDERABLES Final Result Performing Organization Address City/[facility]/ZIP Co de Phone Number [facility] [place] [address], [facility] MKTO [facility] [place] [address] * Interpretation of Outside MR Head (03/22/2021 9:15 AM CDT) Anatomical Region Laterality Modality Neuroradiology RST LOS, Neur oradiology ARZ LOS, Neuroradiology FLA LOS, Head, Other N/A Magnetic Resonance 03/22/2021 10:3 5 AM CDT Impressions 03/22/2021 10:56 AM CDT 1. 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 2. Extensive chronic ischemic changes as noted. Narrative 03/22/2021 10:56 AM CDT EXAM: INTERPRETATION OF OUTSIDE MR HEAD, INTERPRETATION OF OUTSIDE CT HEAD COMPARISON: Outside head CT 11/08/2018 FINDINGS: Outside MRI brain with and without IV contrast 12/03/[address] without IV contrast 12/02/2020: Minimal possible restricted diffusion in the right frontal centrum semiovale could represent an early subacute infarct, though this has some chronic changes centrally. Advanced leukoaraiosis. Extensive scattered chronic infarcts, most prominently in the left cerebellar hemisphere, left beni (with a small amount of associated hemosiderin), and right frontal lobe. Moderate to advanced generalized parenchymal volume loss. Head CT demonstrates no acute intracranial hemorrhage or mass effect. Small 4-5 mm hyperattenuating lesion in the anterior superior 3rd ventricle, likely representing a colloid cyst. Lateral ventricular caliber is unchanged compared to 11/08/2018. Low-attenuation change around the lateral ventricles is also stable. Procedure Note Franco Marin M.D. - 03/22/2021 EXAM: INTERPRETATION OF OUTSIDE MR HEAD, INTERPRETATION OF OUTSIDE CTHEAD COMPARISON: Outside head CT 11/08/2018 FINDINGS: Outside MRI brain with and without IV contrast 12/03/[address] without IV contrast 12/02/2020: Minimal possible restricted diffusion in the right frontal centrumsemiovale could represent an early subacute infarct, though this has some chronicchanges centrally. Advanced leukoaraiosis. Extensive scattered chronic infarcts,most prominently in the left cerebellar hemisphere, left beni (with a smallamount of associated hemosiderin), and right frontal lobe. Moderate to advanced generalized parenchymal volume loss. Head CT demonstrates no acute intracranial hemorrhage or mass effect.Small 4-5 mm hyperattenuating lesion in the anterior superior 3rd ventricle,likely representing a colloid cyst. Lateral ventricular caliber is unchangedcompared to 11/08/2018. Low-attenuation change around the lateral ventricles isalso stable. IMPRESSION: 1. 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 2. Extensive chronic ischemic changes as noted. us Lauren HODGSON MRI PROCEDURES Final Res ult * Interpretation of Outside CT Head (03/22/2021 9:09 AM CDT) Anatomical Region Laterality Modality Head, Neuroradiology RST LOS , Neuroradiology ARZ LOS, Neuroradiology FLA LOS, Other N/A Computed Tomography 03/22/2021 10:3 5 AM CDT Impressions 03/22/2021 10:56 AM CDT 1. 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 2. Extensive chronic ischemic changes as noted. Narrative 03/22/2021 10:56 AM CDT EXAM: INTERPRETATION OF OUTSIDE MR HEAD, INTERPRETATION OF OUTSIDE CT HEAD COMPARISON: Outside head CT 11/08/2018 FINDINGS: Outside MRI brain with and without IV contrast 12/03/[address] without IV contrast 12/02/2020: Minimal possible restricted diffusion in the right frontal centrum semiovale could represent an early subacute infarct, though this has some chronic changes centrally. Advanced leukoaraiosis. Extensive scattered chronic infarcts, most prominently in the left cerebellar hemisphere, left beni (with a small amount of associated hemosiderin), and right frontal lobe. Moderate to advanced generalized parenchymal volume loss. Head CT demonstrates no acute intracranial hemorrhage or mass effect. Small 4-5 mm hyperattenuating lesion in the anterior superior 3rd ventricle, likely representing a colloid cyst. Lateral ventricular caliber is unchanged compared to 11/08/2018. Low-attenuation change around the lateral ventricles is also stable. Procedure Note Franco Marin M.D. - 03/22/2021 EXAM: INTERPRETATION OF OUTSIDE MR HEAD, INTERPRETATION OF OUTSIDE CTHEAD COMPARISON: Outside head CT 11/08/2018 FINDINGS: Outside MRI brain with and without IV contrast 12/03/[address] without IV contrast 12/02/2020: Minimal possible restricted diffusion in the right frontal centrumsemiovale could represent an early subacute infarct, though this has some chronicchanges centrally. Advanced leukoaraiosis. Extensive scattered chronic infarcts,most prominently in the left cerebellar hemisphere, left beni (with a smallamount of associated hemosiderin), and right frontal lobe. Moderate to advanced generalized parenchymal volume loss. Head CT demonstrates no acute intracranial hemorrhage or mass effect.Small 4-5 mm hyperattenuating lesion in the anterior superior 3rd ventricle,likely representing a colloid cyst. Lateral ventricular caliber is unchangedcompared to 11/08/2018. Low-attenuation change around the lateral ventricles isalso stable. IMPRESSION: 1. 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 2. Extensive chronic ischemic changes as noted. us Lauren Portillo M.D. IMG CT PROCEDURES Final Resu lt * (TTE) 2D ECHO DOPPLER COLOR AND CONTRAST (06/16/2020 1:43 PM WO[employer]ANG SAWYER) Ejection Fraction 44 MC CV EIMS Wall Motion Score Index 1.75 MC CV EIMS LV End-Diastolic Volume 154 MC CV EIMS LV End-Systolic Volume 85 MC CV EIMS MV E Velocity 0.5 MC CV EIMS MV A Velocity 0.9 MC CV EIMS MV E/A 0.56 MC CV EIMS MV e' Velocity Medial 0.04 MC CV EIMS MV E/e' Medial 12.5 MC CV EIMS Left ventricular stroke volume index 44 MC CV EIMS Cardiac Output 6.70 MC CV EIMS Cardiac Index 3.28 MC CV EIMS TR Vmax 2.50 MC CV EIMS RA Pressure 5 MC CV EIMS RV Systolic Pressure 30 MC CV EIMS WMSI At Rest 1.75 MC CV EIMS WMSI At Peak Stress 1.75 MC CV EIMS Anatomical Region Laterality Modality Echocardiography 06/16/2020 12:2 7 PM [employer] GANG SAWYER Impressions 06/16/2020 2:06 PM [employer] GANG SAWYER Intravenous Lumason ultrasound enhancement agent(s) administered to enhance endocardial border definition. Echocardiogram performed per left ventricular function protocol. Last full echocardiogram performed 12/30/2018. LEFT VENTRICLE: Mildly enlarged left ventricular chamber size. Calculated 2-D biplane volumetric left ventricular ejection fraction 44 %. Regional wall motion abnormalities were present (see wall motion graphics). Grade 1/3 left ventricular diastolic dysfunction, consistent with low to normal left ventricular filling pressure at rest. RIGHT VENTRICLE: Mildly enlarged right ventricular chamber size. Mildly reduced right ventricular systolic function. Estimated right ventricular systolic pressure 30 mmHg (systolic blood pressure 142 mmHg). ATRIA: Enlarged left atrial size. Enlarged right atrial size. CARDIAC VALVES: Sclerotic aortic valve. No aortic valve regurgitation. Mildly thickened mitral valve. Mildly calcified mitral annulus. Trivial mitral valve regurgitation. Normal tricuspid valve. Mild tricuspid valve regurgitation. OTHER ECHO FINDINGS: Normal inferior vena cava size with normal inspiratory collapse (>50%). No intracardiac mass or thrombus, but the left atrial appendage cannot be visualized adequately with transthoracic echo to exclude thrombus in this location. No pericardial effusion. Prominent anterior epicardial fat layer. For the complete report, see the Order-Level Documents. Narrative 06/16/2020 2:06 PM [employer]ANG SAWYER For the complete report, see the Order-Level Documents. Final Impressions 1. Status post coronary artery bypass graft(s) (04 JUN 2017). 2. Technically challenging study despite the use of echo contrast imaging. 3. Mildly enlarged left ventricular chamber size. Calculated ejection fraction 44%. 4. Regional wall motion abnormalities were present (see wall motion graphics). 5. Grade 1/3 left ventricular diastolic dysfunction, consistent with low to normal left ventricular filling pressure at rest. 6. Mildly enlarged right ventricular chamber size. Mildly reduced right ventricular systolic function. 7. Estimated right ventricular systolic pressure 30 mmHg (systolic blood pressure 142 mmHg). 8. No significant valvular heart disease. 9. Normal inferior vena cava size with normal inspiratory collapse (>50%). 10. Compared to the report of 12/30/2018 no significant change has occurred. Side by side comparison of images performed. Procedure Note Nam Rivera M.D. - 06/16/2020 For the complete report, see the Order-Level Documents. Final Impressions 1. Status post coronary artery bypass graft(s) (04 JUN 2017). 2. Technically challenging study despite the use of echo contrastimaging. 3. Mildly enlarged left ventricular chamber size. Calculated ejectionfraction 44%. 4. Regional wall motion abnormalities were present (see wall motiongraphics). 5. Grade 1/3 left ventricular diastolic dysfunction, consistent with lowto normal left ventricular filling pressure at rest. 6. Mildly enlarged right ventricular chamber size. Mildly reduced rightventricular systolic function. 7. Estimated right ventricular systolic pressure 30 mmHg (systolic bloodpressure 142 mmHg). 8. No significant valvular heart disease. 9. Normal inferior vena cava size with normal inspiratory collapse(>50%). 10. Compared to the report of 12/30/2018 no significant change hasoccurred. Side by side comparison of images performed. Findings Intravenous Lumason ultrasound enhancement agent(s) administered toenhance endocardial border definition. Echocardiogram performed per left ventricular functionprotocol. Last full echocardiogram performed 12/30/2018. LEFT VENTRICLE: Mildly enlargedleft ventricular chamber size. Calculated 2-D biplane volumetric left ventricular ejectionfraction 44 %. Regional wall motion abnormalities were present (see wall motion graphics). Grade1/3 left ventricular diastolic dysfunction, consistent with low to normal left ventricularfilling pressure at rest. RIGHT VENTRICLE: Mildly enlarged right ventricular chamber size. Mildlyreduced right ventricular systolic function. Estimated right ventricular systolicpressure 30 mmHg (systolic blood pressure 142 mmHg). ATRIA: Enlarged left atrial size. Enlargedright atrial size. CARDIAC VALVES: Sclerotic aortic valve. No aortic valve regurgitation.Mildly thickened mitral valve. Mildly calcified mitral annulus. Trivial mitral valveregurgitation. Normal tricuspid valve. Mild tricuspid valve regurgitation. OTHER ECHOFINDINGS: Normal inferior vena cava size with normal inspiratory collapse (>50%). No intracardiacmass or thrombus, but the left atrial appendage cannot be visualized adequately withtransthoracic echo to exclude thrombus in this location. No pericardial effusion. Prominent anteriorepicardial fat layer. For the complete report, see the Order-Level Documents. us Neha Gardner M.D. CV ECHO PROCEDURES Final Res ult * S-TSH (Thyroid-Stimulating Hormone - Sensitive) (06/16/2020 8:44 AM WO[employer] SAWYER) Only the most recent of3 resultswithin the time period is included. TSH, Sensitive 1.7 0.3 - 4.2 mIU/L 06/16/2020 10:03 AM [employer]ANG SAWYER DTL Blood (Blood, Venous) 06/16/2020 8:44 AM [employer] SAWYER 06/16/2020 9:06 AM [employer] us Neha Gardner M.D. LAB BLOOD ADD-ON Final Resul t [facility] [address] [place] [address], [facility] DTL [facility] [address] [place] [address] * NM Cardiac Blood Pool MUGA (07/08/2019 11:12 AM WOOD GANG SAWYER) 07/08/2019 9:10 AM WO[employer] GANG SAWYER Narrative CV MERGE - 07/08/2019 11:45 AM WO[employer] GANG SAWYER See PDF For Result Procedure Note Sly Glass M.D. - 07/08/2019 See PDF For Result us Neha Gardner M.D. IMG NM PROCEDURES Final Resu lt LISA GARCIA NA * CARDIOPULMONARY (VO2) EXERCISE TEST (01/21/2019 2:10 PM CDT) 01/21/2019 1:14 PM CDT Narrative CV MERGE - 01/21/2019 4:06 PM CDT See PDF For Result Procedure Note Deepa Abrams M.D. - 01/21/2019 See PDF For Result us Neha Gardner M.D. CV STRESS PROCEDURES Final R esult Performing Organization Address City/[facility]/ZIP Co de Phone Number CV RADHA NA * Pulmonary Function Tests (01/21/2019 9:02 AM CDT) [facility]CO SINGLE BREATH POST 21.13 ml/(min*mm Hg) 01/21/2019 1:48 PM CDT [place] DLCOC SINGLE BREATH POST 20.32 ml/(min*mm Hg) 01/21/2019 1:48 PM CDT [place] HB 16.10 g(Hb)/dL 01/21/2019 1:48 PM CDT [place] VA SINGLE BREATH POST 5.54 L 01/21/2019 1:48 PM CDT [place] VC MAX POST 3.26 L 01/21/2019 1:48 PM CDT [place] PostFVC 3.25 L 01/21/2019 1:48 PM CDT [place] [facility] PostFEV1 2.11 L 01/21/2019 1:48 PM CDT [place] [facility] FEV1/FVC POST 64.80 % 01/21/2019 1:48 PM CDT [place] [facility] FEF 25-75 % POST 1.09 L/s 01/21/2019 1:48 PM CDT [place] [facility] PEF POST 7.51 L/s 01/21/2019 1:48 PM CDT [place] [facility] FET POST 10.17 sec 01/21/2019 1:48 PM CDT [facility] VC MAX PRE 3.54 L 01/21/2019 1:48 PM CDT [place] [facility] FVC 3.54 L 01/21/2019 1:48 PM CDT [place] [facility] FEV1 2.34 L 01/21/2019 1:48 PM CDT [place] [facility] FEV1/FVC 65.94 % 01/21/2019 1:48 PM CDT [facility] SU[facility] UNT65-18% 1.31 L/s 01/21/2019 1:48 PM CDT [place] [facility] PEF PRE 6.61 L/s 01/21/2019 1:48 PM CDT [place] [facility] FET PRE 9.96 sec 01/21/2019 1:48 PM CDT [place] [facility] MVV 71.93 L/min 01/21/2019 1:48 PM CDT [place] [facility] SUBSTANCE POST NaN 01/21/2019 1:48 PM CDT [place] [facility] DOSE POST NaN 01/21/2019 1:48 PM CDT [facility] SU[facility] % PRED VC MAX 101.21 % 01/21/2019 1:48 PM CDT [facility] SUITE FVC% 101.21 % 01/21/2019 1:48 PM CDT [facility] SUITE FEV1% 87.82 % 01/21/2019 1:48 PM CDT [place] [facility] % PRED FEV1/FVC 86.46 % 01/21/2019 1:48 PM CDT [place] [facility] % PRED FEF 25-75% 64.20 % 01/21/2019 1:48 PM CDT [place] [facility] % PRED PEF 93.24 % 01/21/2019 1:48 PM CDT [place] [facility] PRED VC MAX 3.50 L 01/21/2019 1:48 PM CDT [place] [facility] PRED FVC 3.50 L 01/21/2019 1:48 PM CDT [facility] PRED FEV 1 2.66 L 01/21/2019 1:48 PM CDT [place] PRED FEV1/FVC 76.27 % 01/21/2019 1:48 PM CDT [place] PRED FEF 25-75% 2.03 L/s 01/21/2019 1:48 PM CDT [place] PRED PEF 7.09 L/s 01/21/2019 1:48 PM CDT [place] 01/21/2019 9:02 AM CDT us Neha Gardner M.D. PFT ORDERABLES Final Result Performing Organization Address [facility] Co de Phone Number [place] NA * PET Cardiac Perfusion Rest and Stress (01/07/2019 3:14 PM CDT) 01/07/2019 2:55 PM CDT Narrative [facility] MERGE - 01/07/2019 4:53 PM CDT See PDF For Result us Neha Gardner M.D. IMG NM PROCEDURES Final Resu lt Performing Organization Address [facility] Co de Phone Number [facility] NA * CT Cardiac Angiogram with Coronary Arteries with IV Contrast (01/07/2019 10:43 AM CDT) Anatomical Region Laterality Modality Cardiac, Cardiovascular RST LOS, Thoracic ARZ LOS, Cardiovascular FLA LOS N/A Computed Tomography 01/07/2019 2:08 PM CDT Impressions 01/07/2019 2:55 PM CDT 1. No evidence of sternal dehiscence or mediastinitis. 2. Patent coronary artery bypass grafts. 3. 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 4. Fusiform dilatation of the ascending aorta, 40 mm. Narrative 01/07/2019 2:55 PM CDT EXAM: CT CARDIAC ANGIOGRAM WITH CORONARY ARTERIES WITH IV CONTRAST COMPARISON: PA and lateral chest radiographs 12/31/2018. FINDINGS: Postoperative changes of median sternotomy and coronary artery bypass grafting. Intact sternal wires. Well opposed sternal fragments with upper limit of normal separation of the sternal manubrial fragments, however, no osteolysis. No ventral extrapleural chest wall emphysema or fluid collection. No retrosternal/anterior mediastinal fluid collection. No pneumomediastinum. Mild thickening and/or trace fluid in the anterior inferior or cardiomegaly overlying the right ventricular apex (series 7, image 201). No pericardial enhancement or calcification. CORONARY ARTERY BYPASS GRAFTS: Left internal mammary artery to distal left anterior descending coronary artery: Patent. Aortosaphenous saphenous vein graft to the dominant obtuse marginal branch: Widely patent. Mild fusiform ectasia of the distal graft, however, no thrombus. Aortosaphenous vein graft to right coronary artery: Widely patent. [place] CORONARY ARTERIES: Mild calcification of the left main coronary artery. Otherwise, diffuse calcified and noncalcified atherosclerotic plaque. Patent. Fusiform dilatation of the distal left circumflex coronary artery measuring up to 10 mm with large mural thrombus. Fusiform dilatation of the mid and distal right coronary artery measuring up 9 mm in the mid segment with minimal thrombus. CAD-RADS 2G. THORACIC AORTA: Fusiform dilatation of the ascending aorta, 40 mm in the midsegment. Scattered calcified atherosclerotic plaque of the aortic root, centered to the junction, and proximal ascending aorta. Mild-moderate mixed atherosclerotic plaque of the aortic arch and descending thoracic aorta. Near moderate luminal stenosis of the proximal left subclavian artery secondary to predominantly noncalcified ulcerated noncalcified atherosclerotic plaque. PULMONARY ARTERY: Nondilated main pulmonary artery. PULMONARY VEINS: Two right and 2 left widely patent pulmonary veins drain to the left atrium. OTHER CARDIAC FINDINGS: Interventricular septal dyskinesis. Hypokinesis of the left ventricular apex most conspicuous in the inferior segment. Left atrial chamber enlargement. Small patent foramen ovale suspected. Mild thickening of the anterior posterior mitral valve leaflets. Normal calcification of the posterior mitral valve leaflet. ADDITIONAL FINDINGS: Minimal right right greater than left biapical pulmonary emphysema. Very mild pulmonary fibrosis in the peripheral upper lobes, and middle lobe, lingula, and posterior lateral lung bases. Associated bronchiolectasis most conspicuous in the lower lobes. Minimal subsegmental bronchial plugging, for example in the superior right lower lobe. Few benign intrapulmonary lymph nodes most conspicuous along the peripheral minor fissure. Subcentimeter calcified pulmonary granuloma in the peripheral middle lobe. Noncalcified solid pulmonary micronodule (sub-3 mm) in the peripheral superior lingula (series 7, image 153) is most likely infectious or inflammatory but technically indeterminant. Trace nondependent left pleural fluid/pleural thickening may be sequela of prior cardiac surgery. No right pleural effusion. Possible peripheral hepatic segment 2 cyst, incompletely visualized. Small exophytic cortical cysts in the visualized superior right renal pole. Subcentimeter lipoma of the right diaphragmatic varsha. CAD-RADS CATEGORIES: (based on most severe single lesion) 0: 0%, No stenosis 1: 1-24%, Minimal stenosis 2: 25-49%, Mild stenosis 3: 50-69%, Moderate stenosis 4: 70-99%, Severe stenosis 5: 100%, Occluded Modifiers: N: Non-diagnostic segment(s) S: Stent G: Graft V: Vulnerable plaque Procedure Note Rosio Bae M.D. - 01/07/2019 EXAM: CT CARDIAC ANGIOGRAM WITH CORONARY ARTERIES WITH IV CONTRAST COMPARISON: PA and lateral chest radiographs 12/31/2018. FINDINGS: Postoperative changes of median sternotomy and coronary artery bypassgrafting. Intact sternal wires. Well opposed sternal fragments with upper limit of normal separation ofthe sternal manubrial fragments, however, no osteolysis. No ventralextrapleural chest wall emphysema or fluid collection. No retrosternal/anterior mediastinal fluid collection. Nopneumomediastinum. Mild thickening and/or trace fluid in the anterior inferior orcardiomegaly overlying the right ventricular apex (series 7, image 201). Nopericardial enhancement or calcification. CORONARY ARTERY BYPASS GRAFTS: Left internal mammary artery to distal left anterior descending coronaryartery: Patent. Aortosaphenous saphenous vein graft to the dominant obtuse marginalbranch: Widely patent. Mild fusiform ectasia of the distal graft, however, nothrombus. Aortosaphenous vein graft to right coronary artery: Widely patent. [place] CORONARY ARTERIES: Mild calcification of the left main coronaryartery. Otherwise, diffuse calcified and noncalcified atherosclerotic plaque.Patent. Fusiform dilatation of the distal left circumflex coronary arterymeasuring up to 10 mm with large mural thrombus. Fusiform dilatation of the mid anddistal right coronary artery measuring up 9 mm in the mid segment with minimal thrombus. CAD-RADS 2G. THORACIC AORTA: Fusiform dilatation of the ascending aorta, 40 mm in the midsegment.Scattered calcified atherosclerotic plaque of the aortic root, centered to thejunction, and proximal ascending aorta. Mild-moderate mixed atherosclerotic plaqueof the aortic arch and descending thoracic aorta. Near moderate luminal stenosisof the proximal left subclavian artery secondary to predominantly noncalcified ulcerated noncalcified atherosclerotic plaque. PULMONARY ARTERY: Nondilated main pulmonary artery. PULMONARY VEINS: Two right and 2 left widely patent pulmonary veins drain to the leftatrium. OTHER CARDIAC FINDINGS: Interventricular septal dyskinesis. Hypokinesis of the left ventricularapex most conspicuous in the inferior segment. Left atrial chamber enlargement. Small patent foramen ovale suspected. Mild thickening of the anterior posterior mitral valve leaflets. Normal calcification of the posterior mitral valve leaflet. ADDITIONAL FINDINGS: Minimal right right greater than left biapical pulmonary emphysema. Verymild pulmonary fibrosis in the peripheral upper lobes, and middle lobe,lingula, and posterior lateral lung bases. Associated bronchiolectasis most conspicuousin the lower lobes. Minimal subsegmental bronchial plugging, for example inthe superior right lower lobe. Few benign intrapulmonary lymph nodes most conspicuous along the peripheral minor fissure. Subcentimeter calcified pulmonary granuloma in the peripheral middle lobe. Noncalcified solidpulmonary micronodule (sub-3 mm) in the peripheral superior lingula (series 7, ) is most likely infectious or inflammatory but technically indeterminant. Trace nondependent left pleural fluid/pleural thickening may be sequela ofprior cardiac surgery. No right pleural effusion. Possible peripheral hepatic segment 2 cyst, incompletely visualized.Small exophytic cortical cysts in the visualized superior right renal pole. Subcentimeter lipoma of the right diaphragmatic varsha. CAD-RADS CATEGORIES: (based on most severe single lesion) 0: 0%, No stenosis 1: 1-24%, Minimal stenosis 2: 25-49%, Mild stenosis 3: 50-69%, Moderate stenosis 4: 70-99%, Severe stenosis 5: 100%, Occluded Modifiers: N: Non-diagnostic segment(s) S: Stent G: Graft V:Vulnerable plaque IMPRESSION: 1. No evidence of sternal dehiscence or mediastinitis. 2. Patent coronary artery bypass grafts. 3. Advanced takotna coronary artery disease with fusiform aneurysms of theleft circumflex and right coronary arteries with mural thrombus. 4. Fusiform dilatation of the ascending aorta, 40 mm. us Neha Gardner M.D. IMG CT PROCEDURES Final Resu lt * (ABNORMAL) Troponin T, 5th Generation (12/31/2018 7:15 AM CDT) Only the most recent of2 resultswithin the time period is included. Troponin T, 5th gen 25(H) <=15 ng/L 12/31/2018 8:37 AM CDT Blood (Blood, Venous) 12/31/2018 7:15 AM CDT 12/31/2018 7:37 AM CDT us Neha Gardner M.D. LAB BLOOD ADD-ON Final Resul t Performing Organization Address City/[facility] Co de Phone Number [facility] [address] * CRP (C-Reactive Protein) (12/31/2018 7:13 AM CDT) Pathologist [facility] C-Reactive Protein (CRP), S <3.0 <=8.0 mg/L 01/03/2019 10:46 AM CDT Blood (Blood, Venous) 12/31/2018 7:13 AM CDT 01/03/2019 10:10 AM CDT us Neha Gardner M.D. LAB BLOOD ADD-ON Final Resul t Performing Organization Address City/[facility]/ZIP Co de Phone Number [facility] [address] * (TTE) 2D ECHO DOPPLER COLOR AND CONTRAST (12/30/2018 8:04 PM CDT) Pathologist [facility] Ejection Fraction 42 MC CV EIMS Sinus of Valsalva 39 MC CV EIMS Aortic arch 35 MC CV EIMS Mid-Ascending Aorta 42 MC CV EIMS Wall Motion Score Index 1.94 MC CV EIMS LV Mass Index 162 MC CV EIMS LV End-Diastolic Diameter 58 MC CV EIMS LV End-Systolic Diameter 44 MC CV EIMS LV End-Diastolic Volume 141 MC CV EIMS LV End-Systolic Volume 81 MC CV EIMS MV E Velocity 0.5 MC CV EIMS MV A Velocity 0.9 MC CV EIMS MV E/A 0.56 MC CV EIMS MV e' Velocity Medial 0.04 MC CV EIMS MV e' Velocity Lateral 0.07 MC CV EIMS MV E/e' Medial 12.5 MC CV EIMS MV E/e' Lateral 7.1 MC CV EIMS Left ventricular stroke volume index 38 MC CV EIMS Cardiac Output 4.59 MC CV EIMS Cardiac Index 2.38 MC CV EIMS LV Interventricular Septal Wall Thickness 12 MC CV EIMS LV Posterior Wall Thickness 13 MC CV EIMS LV Relative Wall Thickness 45 MC CV EIMS TAPSE 14 MC CV EIMS Tricuspid Annular S 0.08 MC CV EIMS TR Vmax 2.50 MC CV EIMS RA Pressure 5 MC CV EIMS RV Systolic Pressure 30 MC CV EIMS AV mean gradient 5 MC CV EIMS Aortic valve area 2.82 MC CV EIMS Aortic Valve Dimensionless Index 0.62 MC CV EIMS LA Volume Index 40 MC CV EIMS WMSI At Rest 1.94 MC CV EIMS WMSI At Peak Stress 1.94 MC CV EIMS Anatomical Region Laterality Modality Echocardiography 12/30/2018 6:23 PM CDT Narrative 12/30/2018 8:44 PM CDT For the complete report, see the Order-Level Documents below. Final Impressions 1. Technically challenging study despite the use of echo contrast imaging. 2. Status post coronary artery bypass graft(s) (04 JUN 2017). 3. Mild left ventricular enlargement. Concentric hypertrophy. Calculated ejection fraction 42%. 4. Regional wall motion abnormalities were present (see wall motion graphics) (challenging endocardial delineation). 5. Grade 1/4 left ventricular diastolic dysfunction, consistent with low to normal left ventricular filling pressure. 6. Mild right ventricular enlargement with mild decreased systolic function. Estimated RV systolic pressure 30 mmHg. 7. No significant valvular heart disease. 8. Normal inferior vena cava size with normal inspiratory collapse (>50%). No pericardial effusion. Findings Intravenous Definity ultrasound enhancement agent was administered to enhance endocardial border definition. Definity was not very helpful. LEFT VENTRICLE: Mild left ventricular enlargement. Concentric left ventricular hypertrophy. Calculated left ventricular ejection fraction 42 %. Regional wall motion abnormalities were present (see wall motion graphics). Grade 1/4 left ventricular diastolic dysfunction, consistent with low to normal left ventricular filling pressure. RIGHT VENTRICLE: Mild right ventricular enlargement. Mild decrease in right ventricular systolic function. Estimated right ventricular systolic pressure 30 mmHg (systolic blood pressure 144 mmHg). ATRIA: Mild-moderate left atrial enlargement. Left atrial volume index 40 ml/m^2. Right atrial enlargement. CARDIAC VALVES: Trileaflet aortic valve. Sclerotic aortic valve. Trivial aortic valve regurgitation. Mildly thickened mitral valve. Mildly calcified mitral annulus. Mild mitral valve regurgitation. Normal pulmonary valve. Normal pulmonary valve systolic velocity. Trivial pulmonary valve regurgitation. Normal tricuspid valve. Mild tricuspid valve regurgitation. OTHER ECHO FINDINGS: Normal inferior vena cava size with normal inspiratory collapse (>50%). Ascending aorta dilatation (diameter 42 mm at mid level). No abdominal aortic aneurysm. No atrial level shunt by color flow imaging. No intracardiac mass or thrombus, but the left atrial appendage cannot be visualized adequately with transthoracic echo to exclude thrombus in this location. No pericardial effusion. Prominent anterior epicardial fat layer. For the complete report, see the Order-Level Documents below. See PDF For Result Procedure Note iMrian Wren M.B.B.S., Ph.D. - 12/30/2018 For the complete report, see the Order-Level Documents below. Final Impressions 1. Technically challenging study despite the use of echo contrastimaging. 2. Status post coronary artery bypass graft(s) (04 JUN 2017). 3. Mild left ventricular enlargement. Concentric hypertrophy. Calculatedejection fraction 42%. 4. Regional wall motion abnormalities were present (see wall motiongraphics) (challenging endocardial delineation). 5. Grade 1/4 left ventricular diastolic dysfunction, consistent with lowto normal left ventricular filling pressure. 6. Mild right ventricular enlargement with mild decreased systolicfunction. Estimated RV systolic pressure 30 mmHg. 7. No significant valvular heart disease. 8. Normal inferior vena cava size with normal inspiratory collapse (>50%).No pericardial effusion. Findings Intravenous Definity ultrasound enhancement agent was administered toenhance endocardial border definition. Definity was not very helpful. LEFT VENTRICLE: Mildleft ventricular enlargement. Concentric left ventricular hypertrophy. Calculated leftventricular ejection fraction 42 %. Regional wall motion abnormalities were present (see wallmotion graphics). Grade 1/4 left ventricular diastolic dysfunction, consistent with low tonormal left ventricular filling pressure. RIGHT VENTRICLE: Mild right ventricularenlargement. Mild decrease in right ventricular systolic function. Estimated rightventricular systolic pressure 30 mmHg (systolic blood pressure 144 mmHg). ATRIA: Mild-moderate leftatrial enlargement. Left atrial volume index 40 ml/m^2. Right atrial enlargement. CARDIACVALVES: Trileaflet aortic valve. Sclerotic aortic valve. Trivial aortic valveregurgitation. Mildly thickened mitral valve. Mildly calcified mitral annulus. Mild mitral valveregurgitation. Normal pulmonary valve. Normal pulmonary valve systolic velocity. Trivialpulmonary valve regurgitation. Normal tricuspid valve. Mild tricuspid valveregurgitation. OTHER ECHO FINDINGS: Normal inferior vena cava size with normal inspiratory collapse(>50%). Ascending aorta dilatation (diameter 42 mm at mid level). No abdominal aorticaneurysm. No atrial level shunt by color flow imaging. No intracardiac mass or thrombus, but theleft atrial appendage cannot be visualized adequately with transthoracic echo to excludethrombus in this location. No pericardial effusion. Prominent anterior epicardial fat layer. For the complete report, see the Order-Level Documents below. See PDF For Result us Neha Gardner M.D. CV ECHO PROCEDURES Final Res ult * (ABNORMAL) Electrolyte Panel with Creatinine Shereen (06/12/2017 6:50 AM [facility]) Only the most recent of15 resultswithin the time period is included. Chloride, S 90(L) 98 - 107 MMOL/L [facility] BUN (Blood Urea Nitrogen), S 39(H) 8 - 24 MG/DL [facility] HX Bicarbonate, P/S 31(H) 22 - 29 MMOL/L [facility] Creatinine, Shereen 2.5(H) 0.7 - 1.2 MG/DL [facility] Sodium, P 134(L) 135 - 145 MMOL/L [facility] Potassium, P 3.6 3.6 - 5.2 MMOL/L [facility] Glucose, S 137 70 - 140 MG/DL [facility] Anion Gap 13 7 - [address] [facility] 06/12/2017 6:50 AM [facility] 06/12/2017 6:50 AM [facility] [facility] us Elvin Moreno M.D. LAB BLOOD ADD-ON Final Resu lt Performing Organization Address City/[facility]/ZIP Co de Phone Number [facility] [address] * Glucose, POCT (06/10/2017 5:36 PM [facility] [facility]) Only the most recent of44 resultswithin the time period is included. Last Intake 3-4 hours [facility] Glucose, POCT, B 106 70 - 140 MG/DL [facility] Sample Site, Blood Gas, POCT Capillary [facility] 06/10/2017 5:36 PM [facility] 06/10/2017 5:36 PM [facility] Historical Provider LAB POCT ORDERABLES-MANUAL F inal Result Performing Organization Address City/[facility] Co de Phone Number [facility] [address] * DX Chest Portable 1 View (06/10/2017 9:22 AM [facility] [facility]) Only the most recent of9 resultswithin the time period is included. Anatomical Region Laterality Modality Chest N/A Radiographic Ayana ging 06/10/2017 9:22 AM [facility] Impressions 06/10/2017 9:45 AM [facility] Improved aeration of the lungs since 06/09/17 with decreased left basilar atelectasis. Right basilar chest tube. No pneumothorax. Mild right basilar atelectasis. Left PICC tip at the SVC/RA junction. Sternotomy. Mild pulmonary vascular congestion. Electronically signed by: Neha Coronel MD [phone] 10-Jun-2017 09:45 Narrative 06/10/2017 9:45 AM [facility] 10-Jun-2017 09:22:00 Exam: Portable-Chest Indications: S/P CVS ORIGINAL REPORT - 10-Jun-2017 09:45:00 EXAM: Chest; 1 view: Procedure Note Khang Coronel M.D. - 09/26/2017 10-Jun-2017 09:22:00 Exam: Portable-Chest Indications: S/P CVS ORIGINAL REPORT - 10-Jun-2017 09:45:00 EXAM: Chest; 1 view: IMPRESSION: Improved aeration of the lungs since 06/09/17 with decreasedleft basilar atelectasis. Right basilar chest tube. No pneumothorax. Mildright basilar atelectasis. Left PICC tip at the SVC/RA junction.Sternotomy. Mild pulmonary vascular congestion. Electronically signed by: Neha Coronle MD [phone] 10-Jun-2017 09:45 us Maribell Roberts APRN, C.N.P., M.S.N. IMG DIAGNOS TIC IMAGING PROCEDURES Final Result * DX Abdomen Portable Anterior Posterior 1 View (06/09/2017 6:25 PM [facility] [facility]) Anatomical Region Laterality Modality Abdomen N/A Radiographic Ayana ging 06/09/2017 6:25 PM [facility] Impressions 06/09/2017 8:19 PM [facility] [facility] Nonobstructive bowel gas pattern with gas seen in the distal colon and rectum. 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 Electronically signed by: Kita Marin MD [phone] 09-Jun-2017 18:58 I have reviewed the films/images and agree with the above interpretation. Electronically signed by: Wesley Brock M.D. [phone] 09-Jun-2017 20:19 Narrative 06/09/2017 8:19 PM [facility] 09-Jun-2017 18:25:00 Exam: Portable-Abdomen Indications: R/O ileus ORIGINAL REPORT - 09-Jun-2017 18:58:00 EXAM: Portable-Abdomen, 1vw: Procedure Note Wesley Brock M.B., Ch.B. - 09/26/2017 09-Jun-2017 18:25:00 Exam: Portable-Abdomen Indications: R/O ileus ORIGINAL REPORT - 09-Jun-2017 18:58:00 EXAM: Portable-Abdomen, 1vw: IMPRESSION: Nonobstructive bowel gas pattern with gas seen in the distal colon andrectum. Advanced degenerative changes of the thoracolumbar spine and SIjoints. Electronically signed by: Kita Marin MD [phone] 09-Jun-2017 18:58 I have reviewed the films/images and agree with the above interpretation. Electronically signed by: Wesley Brock M.D. [phone] 09-Jun-2017 20:19 Maribell Roberts APRN, C.N.P., M.S.N. IMG DIAGNOS TIC IMAGING PROCEDURES Final Result * Phosphorus Inorganic (06/09/2017 6:18 AM [facility]) Phosphorus (Inorganic), S 4.1 2.5 - 4.5 MG/DL [facility] Comment:Drawn From PICC 06/09/2017 6:18 AM [facility] 06/09/2017 6:18 AM [facility] Narrative [facility] - 06/09/2017 8:57 AM [facility] [facility] Drawn From PICC us Elvin Moreno M.D. LAB BLOOD ADD-ON Final Resu lt Performing Organization Address [facility] Co de Phone Number [facility] [address] * (ABNORMAL) Calcium, Total (06/09/2017 6:18 AM [facility]) Calcium, Total, S 8.3(L) 8.9 - 10.1 MG/DL [facility] Comment:Drawn From PICC 06/09/2017 6:18 AM [facility] 06/09/2017 6:18 AM [facility] [facility] Narrative [facility] - 06/09/2017 8:57 AM [facility] [facility] Drawn From PICC us Elvin Moreno M.D. LAB BLOOD ADD-ON Final Resu lt Performing Organization Address City/[facility]/ZIP Co de Phone Number [facility] [address] * Sodium, Random, Urine (06/08/2017 11:13 PM [facility] [facility]) Sodium, Random, U 32 Interpret with other; clinical data. MMOL/L [facility] 06/08/2017 11:1 3 PM [facility] 06/08/2017 11:13 PM [facility] Getachew Dunaway APRN.N.P., M.S.N. LAB URINE O RDERABLES Final Result Performing Organization Address City/[facility]/ZIP Co de Phone Number [facility] [address] * (ABNORMAL) Microscopic Manual (06/08/2017 11:13 PM [facility]) Dysmorphic RBC <25 <25 % [facility] WBC 1-3 1-3 (Males); 1-10 (Females) /HPF [facility] Microscopy Abnormal [facility] Blood 21-30(A) <3 /HPF [facility] Casts, Hyaline 1-3 /LPF [facility] 06/08/2017 11:1 3 PM [facility] 06/08/2017 11:13 PM [facility] Getachew Dunaway APRN.N.P., M.S.N. LAB URINE O RDERABLES Final Result Performing Organization Address [facility]/ZIP Co de Phone Number [facility] [address] * Creatinine, Random, Urine (06/08/2017 11:13 PM [facility] [facility]) Creatinine, Random, U 52 Used to normalize other; values. MG/DL [facility] 06/08/2017 11:1 3 PM [facility] 06/08/2017 11:13 PM [facility] Getachew Dunaway APRN.N.P., M.S.N. LAB URINE O RDERABLES Final Result [facility] [address] * Chloride, Random, Urine (06/08/2017 11:13 PM [facility]) Chloride, Random, U 31 Interpret with other; clinical data. MMOL/L [facility] 06/08/2017 11:1 3 PM [facility] 06/08/2017 11:13 PM [facility] Getachew Dunaway APRN.N.P., M.S.N. LAB URINE O RDERABLES Final Result [facility] [address] * (ABNORMAL) Urinalysis with Microscopic (06/08/2017 11:13 PM [facility]) pH, 24 HR, U 5.2 4.5 - 8.0 [facility] Comment: ADDITIONAL INFORMATION This test was developed and its performance characteristics determined by [facility] in a manner consistent with CLIA requirements. This test has not been cleared or approved by the [place]. Food and Drug Administration. Appearance Normal Normal [facility] Source Void [facility] Osmolality, 24 HR, U 264 150 - 1150 MOSM/KG [facility] Glucose 3 0 - 15 MG/DL [facility] Protein, U 10 <26 MG/DL [facility] Comment: ADDITIONAL INFORMATION On 12/26/2016 the total protein assay method changed resulting in approximately a 15% increase in protein values. Protein/Osmolality 0.38 <0.42 RATIO [facility] Comment: ADDITIONAL INFORMATION On 12/26/2016 the total protein assay method changed resulting in approximately a 15% increase in protein values. Predicted 24 Hr Protein 373 MG/24 H [facility] Predicted Range 118-1176 MG/24 H [facility] Hemoglobin, QL Moderate( A) Negative [facility] 06/08/2017 11:1 3 PM [facility] 06/08/2017 11:13 PM [facility] [facility] us Maribell Roberts APRN, C.N.P., M.S.N. LAB URINE O RDERABLES Final Result [facility] [address] [place] [address], [facility] * DX Chest Portable Post PICC Placement 1 View (06/08/2017 6:35 PM [facility] [facility]) Anatomical Region Laterality Modality Chest N/A Radiographic Ayana ging 06/08/2017 6:35 PM [facility] Impressions 06/08/2017 8:47 PM [facility] Left PICC with tip in the upper SVC. Electronically signed by: Nereyda Hilton MD [phone] 08-Jun-2017 18:39 I have reviewed the films/images and agree with the above interpretation. Electronically signed by: Wesley Brock M.D. [phone] 08-Jun-2017 20:47 Narrative 06/08/2017 8:47 PM [facility] 08-Jun-2017 18:35:00 Exam: Portable-Chest PICC Indications: Left - PICC Placement ORIGINAL REPORT - 08-Jun-2017 18:39:00 EXAM: Chest; 1 view Procedure Note Wesley Brock M.B., Ch.B. - 09/26/2017 08-Jun-2017 18:35:00 Exam: Portable-Chest PICC Indications: Left - PICC Placement ORIGINAL REPORT - 08-Jun-2017 18:39:00 EXAM: Chest; 1 view IMPRESSION: Left PICC with tip in the upper SVC. Electronically signed by: Nereyda Hilton MD [phone] 08-Jun-2017 18:39 I have reviewed the films/images and agree with the above interpretation. Electronically signed by: Wesley Brock M.D. [phone] 08-Jun-2017 20:47 Sherly Hay R.N. IMG DIAGNOSTIC IMAGING ND OCEDURES Final Result * Cortrosyn Stim/Antoni (06/07/2017 9:02 AM [facility]) [facility] Cortisol, 60 Min 48 Not applicable MCG/DL [facility] Cortisol, Baseline 21 Not applicable MCG/DL [facility] Cortisol, 30 Min 42 Not applicable MCG/DL [facility] 06/07/2017 9:02 AM [facility] 06/07/2017 9:02 AM [facility] Elvin Moreno M.D. LAB BLOOD NON ADD-ON Final Result Performing Organization Address City/State/[facility] Co de Phone Number [facility] [address] * (ABNORMAL) Blood Gas with Coox, Arterial (06/07/2017 5:47 AM [facility]) Only the most recent of11 resultswithin the time period is included. [facility] Arterial Sample Site Art Line [facility] FIO2 0.53 .21=AIR [facility] pH 7.46(H) 7.35 - 7.45 PH [facility] Base Excess 5(H) -2 - 2 MMOL/L [facility] O2Hb 97.4 94.0 - 98.0 % [facility] COHb 1.1 <3.0 % [facility] Device [place] [facility] Spont. breaths/min 18 [facility] pO2 121(H) 80 - 100 MM HG [facility] pCO2 40 35 - 45 MM HG [facility] HCO3 29(H) 22 - 26 MMOL/L [facility] Hb 9.7(L) 13.5 - 17.5 G/DL [facility] MetHb <1.0 <1.6 % [facility] CtO2 13.5(L) 21.0 - 23.0 VOL % [facility] 06/07/2017 5:47 AM [facility] 06/07/2017 5:47 AM [facility] Elvin Moreno M.D. LAB BLOOD NON ADD-ON Final Result Performing Organization Address [facility] Co de Phone Number [facility] [address] * ABORh, RBC (06/06/2017 8:22 AM [facility]) Only the most recent of3 resultswithin the time period is included. Pathologist [facility] HXABO/RH BLOOD TYPE O Pos [facility] 06/06/2017 8:22 AM [facility] Historical Provider LAB BLOOD BANK TEST ORDERABL ES Final Result Performing Organization Address [facility] de Phone Number [facility] [address] * Prepare Red Blood Cells (06/06/2017 8:22 AM [facility]) Pathologist [facility] HXRBC # UNITS TRANSFUSED 1 [facility] HXRBC UNIT INFO RBC [facility] Comment: Unit Blood Type O Pos Unit Number [id number] Component Type Red Blood Cells - -3 Leukoreduced Issue Date/Time [id number] 06/06/2017 8:22 AM [facility] Historical Provider BLOOD BANK PRODUCT ORDERABLE S Final Result Performing Organization Address [facility] de Phone Number [facility] [address] * Antibody Screen, RBC (06/06/2017 8:22 AM [facility]) Only the most recent of2 resultswithin the time period is included. Pathologist [facility] Antibody Screen Negative [facility] 06/06/2017 8:22 AM [facility] Historical Provider LAB BLOOD BANK TEST ORDERABL ES Final Result Performing Organization Address City/[facility]/ZIP Co de Phone Number [facility] [address] * Lactate (06/05/2017 4:51 PM [facility]) Only the most recent of7 resultswithin the time period is included. Lactate, P 0.8 0.6 - 2.3 MMOL/L [facility] 06/05/2017 4:51 PM [facility] 06/05/2017 4:51 PM [facility] Pete Baker P.A.-C. LAB BLOOD NON ADD-ON Fi nal Result Performing Organization Address [facility] Co de Phone Number [facility] [address] * (ABNORMAL) ABG and Lytes, POCT (06/05/2017 2:51 PM [facility]) Arterial Sample Site Artline [facility] Comment: ADDITIONAL INFORMATION Performed at the Point of Care pH 7.41 7.35 - 7.45 [facility] Comment: ADDITIONAL INFORMATION Performed at the Point of Care Base Excess 3(H) -2 - 2 MMOL/L [facility] Comment: ADDITIONAL INFORMATION Performed at the Point of Care HCO3 27(H) 21 - 25 MMOL/L [facility] Comment: ADDITIONAL INFORMATION Performed at the Point of Care Sodium, B 138 135 - 145 MMOL/L [facility] Comment: ADDITIONAL INFORMATION Performed at the Point of Care Potassium, B 4.5 3.6 - 5.2 MMOL/L [facility] Comment: ADDITIONAL INFORMATION Performed at the Point of Care Calcium, Ionized, B 4.70 4.65 - 5.30 MG/DL [facility] Comment: ADDITIONAL INFORMATION Performed at the Point of Care pH 7.41 7.35 - 7.45 [facility] Comment: ADDITIONAL INFORMATION Performed at the Point of Care Glucose, POCT, B 127 70 - 140 MG/DL [facility] Comment: ADDITIONAL INFORMATION Performed at the Point of Care Hematocrit, POCT, B 23.0(L) 38.8 - 50.0 % [facility] Comment: ADDITIONAL INFORMATION Performed at the Point of Care pCO2 43 35 - 45 MM HG [facility] Comment: ADDITIONAL INFORMATION Performed at the Point of Care pO2 60(L) 70 - 100 MM HG [facility] Comment: ADDITIONAL INFORMATION Performed at the Point of Care 06/05/2017 2:51 PM [facility] 06/05/2017 2:51 PM [facility] Historical Provider LAB BLOOD NON ADD-ON Final R esult Performing Organization Address City/[facility]/ZIP Co de Phone Number [facility] [address] * (ABNORMAL) Electrolyte (Chem 4) Panel (06/05/2017 12:35 PM [facility]WY[facility]) Sodium, S 140 135 - 145 MMOL/L [facility] Potassium, S 4.9 3.6 - 5.2 MMOL/L [facility] Creatinine 2.1(H) 0.8 - 1.3 MG/DL [facility] BUN (Blood Urea Nitrogen), S 27(H) 8 - 24 MG/DL [facility] Anion Gap 16(H) 7 - [address] [facility] Glucose, S 114 70 - 140 MG/DL [facility] Chloride, S 99 98 - 107 MMOL/L [facility] HX Bicarbonate, P/S 25 22 - 29 MMOL/L [facility] 06/05/2017 12:3 5 PM [employer] [facility] [facility] 06/05/2017 12:35 PM [employer] Elvin Moreno M.D. LAB BLOOD ADD-ON Final Resu lt Performing Organization Address City/[facility]/ZIP Co de Phone Number [facility] [address] * APTT (Activated Partial Thromboplastin Time) (06/05/2017 3:49 AM [employer]WY[employer]) Only the most recent of5 resultswithin the time period is included. APTT, P 27 25 - 37 [facility] 06/05/2017 3:49 AM [facility] [facility] 06/05/2017 3:49 AM [employer] Maria Del Carmen Bruce APRN C.N.P. LAB BLOOD ADD-ON Final Result Performing Organization Address [facility] Co de Phone Number [facility] [address] * (ABNORMAL) Fibrinogen (06/04/2017 11:07 PM [employer]) Only the most recent of4 resultswithin the time period is included. Fibrinogen, P 198(L) 200 - 393 MG/DL [facility] 06/04/2017 11:0 7 PM [employer] 06/04/2017 11:07 PM [employer] us Hugo Aj PSashaA.ClarenceC. LAB BLOOD ADD-ON Final Result Performing Organization Address [facility] de Phone Number [facility] [address] * ACT (Activated Clotting Time), POCT (06/04/2017 11:06 PM [employer]WYER) Only the most recent of8 resultswithin the time period is included. Activated Clotting Time, POCT 131 84 - 139 SEC [facility] 06/04/2017 11:0 6 PM [employer] 06/04/2017 11:06 PM [employer] Historical Provider LAB POCT ORDERABLES - DEVICE Final Result Performing Organization Address [facility] de Phone Number [facility] [address] * Potassium, Blood (06/04/2017 8:19 PM [employer]WY[employer]) Only the most recent of4 resultswithin the time period is included. Potassium, B 4.8 3.6 - 5.2 MMOL/L [facility] Comment:Drawn in [place] 06/04/2017 8:19 PM [employer] 06/04/2017 8:19 PM [employer] Narrative [facility] - 06/04/2017 8:22 PM [employer] Drawn in [place] us Elvin Moreno M.D. LAB BLOOD NON ADD-ON Final Result Performing Organization Address City/[facility]/ZIP Co de Phone Number [facility] [address] * (ABNORMAL) Glucose, Whole Blood (06/04/2017 8:19 PM [employer]) Only the most recent of4 resultswithin the time period is included. Glucose, S 168(H) 70 - 140 MG/DL [facility] Comment:Drawn in [place] 06/04/2017 8:19 PM [employer] 06/04/2017 8:19 PM [employer] Narrative [facility] - 06/04/2017 8:22 PM [employer] Drawn in [place] us Elvin Moreno M.D. LAB BLOOD ADD-ON Final Resu lt Performing Organization Address [facility] Co de Phone Number [facility] [address] * Sodium (06/04/2017 8:19 PM [employer]) Only the most recent of9 resultswithin the time period is included. Sodium, B 141 135 - 145 MMOL/L [facility] Comment:Drawn in [place] 06/04/2017 8:19 PM [employer] 06/04/2017 8:19 PM [employer] Narrative [facility] - 06/04/2017 8:23 PM [employer] Drawn in [place] us Elvin Moreno M.D. LAB BLOOD ADD-ON Final Resu lt Performing Organization Address City/[facility]/ZIP Co de Phone Number [facility] [address] * Calcium, Ionized (06/04/2017 8:19 PM [employer]) Only the most recent of5 resultswithin the time period is included. Calcium, Ionized, B 5.08 4.65 - 5.30 MG/DL [facility] Comment:Drawn in [place] 06/04/2017 8:19 PM [employer] 06/04/2017 8:19 PM [employer] SAW[employer]ER Narrative [facility] - 06/04/2017 8:22 PM [employer] Drawn in [place] Elvin Moreno M.D. LAB BLOOD NON ADD-ON Final Result Performing Organization Address City/[facility]/ZIP Co de Phone Number [facility] [address] * (ABNORMAL) Hemoglobin (HGB), POCT (06/04/2017 8:17 PM [employer]) Only the most recent of2 resultswithin the time period is included. Pathologist [facility] Hemoglobin, B 12.5(L) 13.5 - 17.5 G/DL [facility] 06/04/2017 8:17 PM [employer] 06/04/2017 8:17 PM [employer] Historical Provider LAB POCT ORDERABLES - DEVICE Final Result Performing Organization Address [facility] Co de Phone Number [facility] [address] * (ABNORMAL) Platelet Count (06/04/2017 12:37 PM WO[employer] GANG SAWYER) [facility] HX Platelet Count 133(L) 150 - 450 X10(9)/L [facility] Comment:Drawn in [place] 06/04/2017 12:3 7 PM [employer] 06/04/2017 12:37 PM [employer] Narrative [facility] - 06/04/2017 12:47 PM [employer] Drawn in [place] Historical Provider LAB BLOOD ADD-ON Final Resul t Performing Organization Address City/[facility]/ZIP Co de Phone Number [facility] [address] * HX intra-Op Auto Tx (06/04/2017 10:45 AM WO[employer] SAWYER) HXRBC # UNITS TRANSFUSED 1.25 [facility] HXRBC UNIT INFO RBC [facility] Comment: Component Type Intraoperative Salvaged RBC Unit Number =[id number] Issue Date/Time [id number] Component Type Intraoperative Salvaged RBC Unit Number =[id number] Issue Date/Time [id number] 06/04/2017 10:4 5 AM [employer] us Historical Provider LAB HISTORICAL ORDERS Final Result Performing Organization Address City/[facility]/ZIP Co de Phone Number [facility] [address] * ANESTHESIOLOGY IMAGE EXAM (06/04/2017 7:50 AM [employer]WYER) 06/04/2017 7:49 AM [employer] Narrative [facility] - 06/04/2017 8:55 AM [employer] This order has been created and auto-finalized to support the import of images acquired without order. The clinical documentation to support these images can be found on the encounter that produced images. us Provider Not In System IMG NON RAD IMAGING PROCE DURES Final Result Performing Organization Address [facility] Co de Phone Number [facility] NA * Echo Transesophageal (JOSTIN) (06/04/2017 7:37 AM WO[employer]WYER) Anatomical Region Laterality Modality Echocardiography 06/04/2017 7:37 AM [employer] us Historical Provider CV ECHO PROCEDURES Final Res ult * Echocardiology Image Exam (06/04/2017 6:45 AM [employer]) Only the most recent of4 resultswithin the time period is included. Anatomical Region Laterality Modality Other 06/04/2017 6:45 AM [employer] Addenda Addendum by Provider, Dianna Samuel on 06/04/2017 6:45 AM [employer] ECHO^^^MCR INTRAOP 06/04/2017 06:45:08 INTRAOP us Historical Provider IMG NON RAD IMAGING PROCEDUR ES Final Result * US Lower Extremity Veins (06/01/2017 12:09 PM [employer] SAWYER) Anatomical Region Laterality Modality Vascular, Lower Extremity Ultras ound 06/01/2017 12:0 9 PM [employer] Impressions 06/01/2017 12:14 PM [employer] Both great saphenous veins are suitable in size for graft purposes from the upper thigh to near the ankle. FINDINGS: Right: The right great saphenous vein measures 3 mm in the upper thigh, 3.6 mm in the lower thigh, 3.6 mm in the upper calf and 3.2 mm at the ankle. Left: The left great saphenous vein measures 4.9 mm in the upper thigh, 4.6 mm in the lower thigh, 3.6 mm in the upper calf and 4.4 mm at the ankle. Electronically signed by: Bev Avendano MD. [id number] 01-Jun-2017 12:14 Narrative 06/01/2017 12:14 PM [employer] 01-Jun-2017 12:09:00 Exam: B US Lower Extremity Veins Lmt Indications: Coronary Artery Disease (CAD) With Stable Angina ORIGINAL REPORT - 01-Jun-2017 12:14:00 EXAM: US Extremity Duplex Scan Veins Limited with color and spectral Doppler analysis BOTH COMPARISON: None Procedure Note Abimael Avendano M.D. - 09/26/2017 01-Jun-2017 12:09:00 Exam: B US Lower Extremity Veins Lmt Indications: Coronary Artery Disease (CAD) With Stable Angina ORIGINAL REPORT - 01-Jun-2017 12:14:00 EXAM: US Extremity Duplex Scan Veins Limited with color and spectralDoppler analysis BOTH COMPARISON: None IMPRESSION: Both great saphenous veins are suitable in size for graftpurposes from the upper thigh to near the ankle. FINDINGS: Right: The right great saphenous vein measures 3 mm in theupper thigh, 3.6 mm in the lower thigh, 3.6 mm in the upper calf and 3.2mm at the ankle. Left: The left great saphenous vein measures 4.9 mm in the upper thigh,4.6 mm in the lower thigh, 3.6 mm in the upper calf and 4.4 mm at theankle. Electronically signed by: Bev Avendano MD. [id number] 01-Jun-2017 12:14 us Kirsty Pennington P.A.-C. 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 The radial arteries should NOT be used for graft purposes. Electronically signed by: Bev Avendano MD. [id number] 01-Jun-2017 12:14 Narrative 06/01/2017 12:14 PM [employer]ER 01-Jun-2017 12:08:00 Exam: B US Upper Extrem Art-Graft Lm Indications: Coronary Artery Disease (CAD) With Stable Angina ORIGINAL REPORT - 01-Jun-2017 12:14:00 EXAM: US Upper Extremity Artery and/or Graft Limited with color and spectral Doppler analysis BOTH COMPARISON: None Procedure Note Abimael Avendano M.D. 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 The radialarteries should NOT be used for graft purposes. Electronically signed by: Bev Avendano MD. [id number] 01-Jun-2017 12:14 us Kirsty Pennington P.A.-C. IMG US PROCEDURES Final Result * BUN (Blood Urea Nitrogen) (06/01/2017 10:37 AM [employer]) Only the most recent of3 resultswithin the time period is included. BUN (Blood Urea Nitrogen), S 21 8 - 24 MG/DL [facility] 06/01/2017 10:3 7 AM [employer] 06/01/2017 10:37 AM [employer] us Kirsty Pennington P.A.-C. LAB BLOOD ADD-ON Final R esult Performing Organization Address [facility] Co de Phone Number [facility] [address] * (ABNORMAL) Potassium (06/01/2017 10:37 AM [employer]) Only the most recent of5 resultswithin the time period is included. Potassium, S 5.3(H) 3.6 - 5.2 MMOL/L [facility] 06/01/2017 10:3 7 AM [employer] 06/01/2017 10:37 AM [employer] us Kirsty FryeCSasha LAB BLOOD ADD-ON Final R esult Performing Organization Address [facility] de Phone Number [facility] [address] * Creatinine with Estimated GFR (MDRD) (06/01/2017 10:37 AM [employer]WYER) Only the most recent of5 resultswithin the time period is included. Creatinine 1.3 0.8 - 1.3 MG/DL [facility] 06/01/2017 10:3 7 AM [employer] 06/01/2017 10:37 AM [employer] us Kirsty FryeCSasha LAB BLOOD ADD-ON Final R esult Performing Organization Address [facility] de Phone Number [facility] [address] * Cardiology Image Exam (05/08/2017 11:15 AM [employer]) Only the most recent of2 resultswithin the time period is included. Anatomical Region Laterality Modality Other 05/08/2017 11:1 5 AM [employer] [facility] Addenda Addendum by Provider, Dianna Samuel on 05/08/2017 11:15 AM [employer] [facility] CARD^^^MCR CATH 05/08/2017 11:15:04 CATH Historical Provider IMG NON RAD IMAGING PROCEDUR ES Final Result * Cardiac Catheterization (05/08/2017 11:08 AM [employer]) Anatomical Region Laterality Modality Other 05/08/2017 11:0 8 AM [employer] Historical Provider CV CARDIAC CATH PROCEDURES F inal Result * (ABNORMAL) Coenzyme Q10, Total, P (05/08/2017 7:52 AM [employer]WYER) Interpretation . [facility] Comment: In this sample, the total coenzyme Q10 concentration was elevated. This finding is likely related to supplementation. Other possible causes include cardiovascular diseases or hypercholesterolemia. ADDITIONAL INFORMATION High-Performance Liquid Chromatography (HPLC) with Electrochemical Detection This test was developed and its performance characteristics determined by [facility] in a manner consistent with CLIA requirements. This test has not been cleared or approved by the U.S. Food and Drug Administration. HX CoQ10 Total-Linneus 2901(H) 433 - 1532 MCG/L [facility] Reviewed by . [facility] Comment:Deuce Gaitan 05/08/2017 7:52 AM [employer] 05/08/2017 7:52 AM [employer] Neha Gardner M.D. LAB BLOOD ADD-ON Final Resul t [facility] [address] [place] [address], [facility] * 25-Hydroxyvitamin D2 and D3 (05/08/2017 7:52 AM [employer]) 25-Hydroxy D2 <4.0 NG/ML [facility] 25-Hydroxy D3 44 NG/ML [facility] 25-Hydroxy D Total 44 SeeComment NG/ML [facility] Comment: REFERENCE VALUE 25-HYDROXY D TOTAL (D2+D3) Optimum levels in the healthy population are 20-50, patients with bone disease may benefit from higher levels within this range. ADDITIONAL INFORMATION This test was developed and its performance characteristics determined by [facility] in a manner consistent with CLIA requirements. This test has not been cleared or approved by the U.S. Food and Drug Administration. 05/08/2017 7:52 AM [employer] 05/08/2017 7:52 AM [employer] us Neha Gardner M.D. LAB BLOOD ADD-ON Final Resul t Performing Organization Address [facility] Co de Phone Number [facility] [address] * Alkaline Phosphatase (05/08/2017 7:52 AM WO[employer] SAWYER) Alkaline Phosphatase, S 67 45 - 115 U/L [facility] 05/08/2017 7:52 AM [employer] 05/08/2017 7:52 AM [employer] us Neha Gardner M.D. LAB BLOOD ADD-ON Final Resul t Performing Organization Address [facility] Co de Phone Number [facility] [address] * Lipase (05/08/2017 7:52 AM WO[employer] SAWYER) Lipase, S 49 10 - 73 U/L [facility] 05/08/2017 7:52 AM [employer] SAW[employer]ER 05/08/2017 7:52 AM [employer] us Neha Gardner M.D. LAB BLOOD ADD-ON Final Resul t Performing Organization Address [facility] Co de Phone Number [facility] [address] * Bilirubin, Total (05/08/2017 7:52 AM WO[employer] SAWY[employer]) Bilirubin, Total, S 1.0 <=1.2 MG/DL [facility] 05/08/2017 7:52 AM [employer] 05/08/2017 7:52 AM [employer] us Neha Gardner M.D. LAB BLOOD ADD-ON Final Resul t Performing Organization Address [facility] de Phone Number [facility] [address] * Glucose, Fasting (05/04/2017 8:26 AM CDT) Only the most recent of2 resultswithin the time period is included. Last Intake 14 HR [facility] Glucose, P 89 70 - 100 MG/DL [facility] 05/04/2017 8:26 AM CDT 05/04/2017 8:26 AM CDT Result Sarah Gardner M.D. LAB BLOOD NON ADD-ON Final R esult Performing Organization Address [facility] de Phone Number [facility] [address] * Echo Transthoracic (TTE) (12/13/2016 10:34 AM CDT) Anatomical Region Laterality Modality Echocardiography 12/13/2016 10:3 4 AM CDT Result Sarah Gardner M.D. CV ECHO PROCEDURES Final Res ult * DX Wrist 3+ Views (05/29/2016 8:22 AM [employer]) Only the most recent of4 resultswithin the time period is included. Anatomical Region Laterality Modality Radiographic Ayana ging 05/29/2016 8:22 AM [employer] Impressions 05/29/2016 8:33 AM [employer] Since 03/02/2016, interval removal of the percutaneous pin across a fracture of the distal phalanx of the thumb. There has been interval healing with sclerosis and the fracture has nearly completely healed. Advanced arthritis at the 1st CMC, MCP, and IP joints. Stable luceny in the base of the 1st metacarpal, likely degenerative. Decrease in the soft tissue swelling of the thumb. Screw fixation of the distal radius. The distal radial fracture has undergone mild healing with the fracture line still visible. Healing, comminuted fracture of the distal ulna with a well-corticated osseous fragment adjacent to the tip of the distal ulna. Ulnar positive variance. Advanced arthritis at the DRUJ. Plate and screw fixation of the 5th metacarpal shaft with interval healing of the fracture. Mild interval healing of the fracture at the base of the 3rd proximal phalanx. Well-corticated ossicle adjacent to the 1st IP joint, likely from prior trauma. 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 Degenerative arthritis throughout the hand and wrist. Osteopenia. Linear radiopaque density adjacent to the 5th MCP joint is again seen. Scattered soft tissue swelling. Electronically signed by: Ashli Grayson MD [id number] 29-May-2016 08:33 Narrative 05/29/2016 8:33 AM [employer] 29-May-2016 08:22:00 Exam: R Wrist 3vw AP/Lat w/tilt Lat Indications: Fx Radius Distal Closed Subsequent R ORIGINAL REPORT - 29-May-2016 08:33:00 EXAM: Right Thumb 3vw AP/Lat/Obl: Right Hand 2vw: Right Wrist 3vw AP/Lat w/tilt Lat: Procedure Note Neil Grayson M.D. - 09/27/2017 29-May-2016 08:22:00 Exam: R Wrist 3vw AP/Lat w/tilt Lat Indications: Fx Radius Distal Closed Subsequent R ORIGINAL REPORT - 29-May-2016 08:33:00 EXAM: Right Thumb 3vw AP/Lat/Obl: Right Hand 2vw: Right Wrist 3vw AP/Lat w/tilt Lat: IMPRESSION: Since 03/02/2016, interval removal of the percutaneous pinacross a fracture of the distal phalanx of the thumb. There has beeninterval healing with sclerosis and the fracture has nearly completelyhealed. Advanced arthritis at the 1st CMC, MCP, and IP joints. Stableluceny in the base of the 1st metacarpal, likely degenerative. Decrease inthe soft tissue swelling of the thumb. Screw fixation of the distal radius. The distal radial fracture hasundergone mild healing with the fracture line still visible. Healing,comminuted fracture of the distal ulna with a well-corticated osseousfragment adjacent to the tip of the distal ulna. Ulnar positive variance.Advanced arthritis at the DRUJ. Plate and screw fixation of the 5th metacarpal shaft with interval healingof the fracture. Mild interval healing of the fracture at the base of the3rd proximal phalanx. Well-corticated ossicle adjacent to the 1st IPjoint, likely from prior trauma. 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 Degenerative arthritis throughout the handand wrist. Osteopenia. Linear radiopaque density adjacent to the 5th MCPjoint is again seen. Scattered soft tissue swelling. Electronically signed by: Ashli Grayson MD 29-May-2016 08:33 Dulce Angeles IM DIAGNOSTIC IMAGING PROC EDURES Final Result * DX Hand 2 Views (05/29/2016 8:22 AM [employer]) Anatomical Region Laterality Modality Upper Extremity, Hand N/A Radiograph ic Imaging 05/29/2016 8:22 AM [employer] Impressions 05/29/2016 8:33 AM [employer] Since 03/02/2016, interval removal of the percutaneous pin across a fracture of the distal phalanx of the thumb. There has been interval healing with sclerosis and the fracture has nearly completely healed. Advanced arthritis at the 1st CMC, MCP, and IP joints. Stable luceny in the base of the 1st metacarpal, likely degenerative. Decrease in the soft tissue swelling of the thumb. Screw fixation of the distal radius. The distal radial fracture has undergone mild healing with the fracture line still visible. Healing, comminuted fracture of the distal ulna with a well-corticated osseous fragment adjacent to the tip of the distal ulna. Ulnar positive variance. Advanced arthritis at the DRUJ. Plate and screw fixation of the 5th metacarpal shaft with interval healing of the fracture. Mild interval healing of the fracture at the base of the 3rd proximal phalanx. Well-corticated ossicle adjacent to the 1st IP joint, likely from prior trauma. 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 Degenerative arthritis throughout the hand and wrist. Osteopenia. Linear radiopaque density adjacent to the 5th MCP joint is again seen. Scattered soft tissue swelling. Electronically signed by: Ashli Grayson MD [id number] 29-May-2016 08:33 Narrative 05/29/2016 8:33 AM [facility] [facility] 29-May-2016 08:22:00 Exam: R Hand 2vw Indications: Fx Metacarpal Bone Closed Initial ORIGINAL REPORT - 29-May-2016 08:33:00 EXAM: Right Thumb 3vw AP/Lat/Obl: Right Hand 2vw: Right Wrist 3vw AP/Lat w/tilt Lat: Procedure Note Neil Grayson M.D. - 09/27/2017 29-May-2016 08:22:00 Exam: R Hand 2vw Indications: Fx Metacarpal Bone Closed Initial ORIGINAL REPORT - 29-May-2016 08:33:00 EXAM: Right Thumb 3vw AP/Lat/Obl: Right Hand 2vw: Right Wrist 3vw AP/Lat w/tilt Lat: IMPRESSION: Since 03/02/2016, interval removal of the percutaneous pinacross a fracture of the distal phalanx of the thumb. There has beeninterval healing with sclerosis and the fracture has nearly completelyhealed. Advanced arthritis at the 1st CMC, MCP, and IP joints. Stableluceny in the base of the 1st metacarpal, likely degenerative. Decrease inthe soft tissue swelling of the thumb. Screw fixation of the distal radius. The distal radial fracture hasundergone mild healing with the fracture line still visible. Healing,comminuted fracture of the distal ulna with a well-corticated osseousfragment adjacent to the tip of the distal ulna. Ulnar positive variance.Advanced arthritis at the DRUJ. Plate and screw fixation of the 5th metacarpal shaft with interval healingof the fracture. Mild interval healing of the fracture at the base of the3rd proximal phalanx. Well-corticated ossicle adjacent to the 1st IPjoint, likely from prior trauma. 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 Degenerative arthritis throughout the handand wrist. Osteopenia. Linear radiopaque density adjacent to the 5th MCPjoint is again seen. Scattered soft tissue swelling. Electronically signed by: Ashli Grayson MD 29-May-2016 08:33 Dulce Angeles IMG DIAGNOSTIC IMAGING PROC EDURES Final Result * DX Finger 2+ Views (05/29/2016 8:22 AM [employer]) Only the most recent of4 resultswithin the time period is included. Anatomical Region Laterality Modality Upper Extremity, Fingers N/A Radiogr aphic Imaging 05/29/2016 8:22 AM [employer] Impressions 05/29/2016 8:33 AM [employer] Since 03/02/2016, interval removal of the percutaneous pin across a fracture of the distal phalanx of the thumb. There has been interval healing with sclerosis and the fracture has nearly completely healed. Advanced arthritis at the 1st CMC, MCP, and IP joints. Stable luceny in the base of the 1st metacarpal, likely degenerative. Decrease in the soft tissue swelling of the thumb. Screw fixation of the distal radius. The distal radial fracture has undergone mild healing with the fracture line still visible. Healing, comminuted fracture of the distal ulna with a well-corticated osseous fragment adjacent to the tip of the distal ulna. Ulnar positive variance. Advanced arthritis at the DRUJ. Plate and screw fixation of the 5th metacarpal shaft with interval healing of the fracture. Mild interval healing of the fracture at the base of the 3rd proximal phalanx. Well-corticated ossicle adjacent to the 1st IP joint, likely from prior trauma. 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 Degenerative arthritis throughout the hand and wrist. Osteopenia. Linear radiopaque density adjacent to the 5th MCP joint is again seen. Scattered soft tissue swelling. Electronically signed by: Ashli Grayson MD 29-May-2016 08:33 Narrative 05/29/2016 8:33 AM [employer] 29-May-2016 08:22:00 Exam: R Thumb 3vw AP/Lat/Obl Indications: Fx Thumb Base Closed Initial NOS ORIGINAL REPORT - 29-May-2016 08:33:00 EXAM: Right Thumb 3vw AP/Lat/Obl: Right Hand 2vw: Right Wrist 3vw AP/Lat w/tilt Lat: Procedure Note Neil Grayson M.D. - 09/27/2017 29-May-2016 08:22:00 Exam: R Thumb 3vw AP/Lat/Obl Indications: Fx Thumb Base Closed Initial NOS ORIGINAL REPORT - 29-May-2016 08:33:00 EXAM: Right Thumb 3vw AP/Lat/Obl: Right Hand 2vw: Right Wrist 3vw AP/Lat w/tilt Lat: IMPRESSION: Since 03/02/2016, interval removal of the percutaneous pinacross a fracture of the distal phalanx of the thumb. There has beeninterval healing with sclerosis and the fracture has nearly completelyhealed. Advanced arthritis at the 1st CMC, MCP, and IP joints. Stableluceny in the base of the 1st metacarpal, likely degenerative. Decrease inthe soft tissue swelling of the thumb. Screw fixation of the distal radius. The distal radial fracture hasundergone mild healing with the fracture line still visible. Healing,comminuted fracture of the distal ulna with a well-corticated osseousfragment adjacent to the tip of the distal ulna. Ulnar positive variance.Advanced arthritis at the DRUJ. Plate and screw fixation of the 5th metacarpal shaft with interval healingof the fracture. Mild interval healing of the fracture at the base of the3rd proximal phalanx. Well-corticated ossicle adjacent to the 1st IPjoint, likely from prior trauma. 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 Degenerative arthritis throughout the handand wrist. Osteopenia. Linear radiopaque density adjacent to the 5th MCPjoint is again seen. Scattered soft tissue swelling. Electronically signed by: Ashli Grayson MD 8-29-May-2016 08:33 Dulce Angeles IMG DIAGNOSTIC IMAGING PROC EDURES Final Result * Cardiac Catheterization (05/02/2016 10:50 AM CDT) Anatomical Region Laterality Modality Other 05/02/2016 10:5 0 AM CDT Historical Provider CV CARDIAC CATH PROCEDURES F inal Result * NM Cardiac Perfusion Rest and Stress SPECT (03/21/2016 12:07 PM CDT) 03/21/2016 12:0 7 PM CDT [facility] - 03/21/2016 1:46 PM CDT (Please note: Additional images are available in Synthesis) 1. Large area of exercise-induced ischemia involving the apical, anterior and anteroseptal segments. The lack of complete reversibility in the apical and anteroseptal defect could represent associated infarction and/or attenuation. 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 The area of infarction is quantitated at 22% of the myocardium. 2. LV size is normal. LVEF is quantitated at 42% at rest. Regional wall motion abnormalities include hypokinesis involving the apical and inferior segments. 3. There are no previous nuclear stress studies for comparison. 4. * Dr. GARDNER's office notified of study results. STUDY: NC Sestamibi S/R-Exercise INDICATIONS: Primary Reason for Study: Diagnosis of chest pain; Secondary Reason for Study: Screening for CAD; STRESS INFORMATION: Treadmill Protocol: Xavier; METS: 8.97; %FAC: 112.47; Injection Time: 06:31; Total Exercise Time: 07:58; Total Recovery Time: 06:54; SYMPTOMS: Primary Reason for Stopping Study: Fatigue; ECG: Stress ECG Interpretation: Negative for ischemia; Magnitude of ST segment Depression: < 1mm; Configuration of ST Segment: Clearly upsloping; Ventricular Ectopy: > 6 per min; Comment: frequent PVCs and 3 beat runs of nonsustained VT.; PATIENT EDUCATION: Instructions for undergoing test were given: ; Presented: About Your Nuclear Cardiology Stress Test ([id number]); Patient verbalized and demonstrated understanding.; Education Time in minutes: 15; MONITORING PERSONNEL: Primary Monitor: Sangeeta Alcaraz Book Trimmer: Augustus Menard REFERRING PHYSICIAN: ANDREEA GARDNER III INTERPRETING PHYSICIAN: Amador Funez/Vinh Baxter Electronically signed by: Bev Funez MD. [id number] 21-Mar-2016 13:46 [facility] - 03/21/2016 1:46 PM CDT 21-Mar-2016 12:07:00 Exam: NC Sestamibi S/R-Exercise Indications: Ectopy Ventricular;Coronary Artery Disease (CAD) With Stable Angina ORIGINAL REPORT - 21-Mar-2016 13:46:00 SPECT Sestamibi Stress (Exercise) and Rest: FINAL Procedure Note Amador Funez M.D. - 09/27/2017 21-Mar-2016 12:07:00 Exam: NC Sestamibi S/R-Exercise Indications: Ectopy Ventricular;Coronary Artery Disease (CAD) With StableAngina ORIGINAL REPORT - 21-Mar-2016 13:46:00 SPECT Sestamibi Stress (Exercise) and Rest: FINAL IMPRESSION: (Please note: Additional images are available inSynthesis) 1. Large area of exercise-induced ischemia involving the apical, anteriorand anteroseptal segments. The lack of complete reversibility in the apical and anteroseptaldefect could represent associated infarction and/or attenuation. 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 The area of infarction is quantitated at 22% of the myocardium. 2. LV size is normal. LVEF is quantitated at 42% at rest. Regional wall motion abnormalities include hypokinesis involving theapical and inferior segments. 3. There are no previous nuclear stress studies for comparison. 4. * Dr. GARDNER's office notified of study results. STUDY: NC Sestamibi S/R-Exercise INDICATIONS: Primary Reason for Study: Diagnosis of chest pain; SecondaryReason for Study: Screening for CAD; STRESS INFORMATION: Treadmill Protocol: Xavier; METS: 8.97; %FAC: 112.47;Injection Time: 06:31; Total Exercise Time: 07:58; Total Recovery Time:06:54; SYMPTOMS: Primary Reason for Stopping Study: Fatigue; ECG: Stress ECG Interpretation: Negative for ischemia; Magnitude of STsegment Depression: < 1mm; Configuration of ST Segment: Clearly upsloping;Ventricular Ectopy: > 6 per min; Comment: frequent PVCs and 3 beat runsof nonsustained VT.; PATIENT EDUCATION: Instructions for undergoing test were given: ;Presented: About Your Nuclear Cardiology Stress Test ([id number]); Patientverbalized and demonstrated understanding.; Education Time in minutes: 15; MONITORING PERSONNEL: Primary Monitor: Sangeeta Alcaraz Book Trimmer:Augustus Menard REFERRING PHYSICIAN: ANDREEA GARDNER III INTERPRETING PHYSICIAN: Amador Funez/Vinh Baxter Electronically signed by: Bev Funez MD. [id number] 21-Mar-2016 13:46 Neha Gardner M.D. IMG NM PROCEDURES Final Resu lt Performing Organization Address City/State/[facility] Co de Phone Number [facility] [address] [place] [address] * Sestamibi Scan (03/21/2016 9:39 AM CDT) Anatomical Region Laterality Modality Other 03/21/2016 9:39 AM CDT Historical Provider CV CARDIAC CATH PROCEDURES F inal Result * DX Hand 3+ Views (03/02/2016 9:48 AM CDT) Only the most recent of3 resultswithin the time period is included. Anatomical Region Laterality Modality Upper Extremity, Hand N/A Radiograph ic Imaging 03/02/2016 9:48 AM CDT Impressions 03/02/2016 9:58 AM CDT Pin fixation across a fracture of the distal phalanx of the thumb. The fracture line remains visible. Alignment is unchanged. Screw fixation across the intraarticular fracture of the medial styloid. Mild interval healing since 02/16/2016. The fracture line remains visible, predominantly laterally. Healing comminuted fracture of the distal ulna with an ununited well corticated ossicle adjacent to the tip of the distal ulna. Sxglu-zdb-adash fixation across the comminuted fracture of the 5th metacarpal. Fracture line remains visible. Healing fracture of the base of the 3rd proximal phalanx and the 1st proximal phalanx. 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 Scattered degenerative changes throughout the hand and wrist, most marked at the 1st CMC joint where it is advanced. Soft tissue swelling. Electronically signed by: Ashli Grayson MD [id number] 02-Mar-2016 09:58 Narrative 03/02/2016 9:58 AM CDT 02-Mar-2016 09:48:00 Exam: R Hand PA Obl Splayed Lateral Indications: Fx Metacarpal Bone Closed Initial ORIGINAL REPORT - 02-Mar-2016 09:58:00 EXAM: Right Thumb 3vw AP/Lat/Obl: Right Wrist 3vw AP/Lat w/tilt Lat: Right Hand PA Obl Splayed Lateral: Procedure Note Neil Grayson M.D. - 09/27/2017 02-Mar-2016 09:48:00 Exam: R Hand PA Obl Splayed Lateral Indications: Fx Metacarpal Bone Closed Initial ORIGINAL REPORT - 02-Mar-2016 09:58:00 EXAM: Right Thumb 3vw AP/Lat/Obl: Right Wrist 3vw AP/Lat w/tilt Lat: Right Hand PA Obl Splayed Lateral: IMPRESSION: Pin fixation across a fracture of the distal phalanx of the thumb. Thefracture line remains visible. Alignment is unchanged. Screw fixationacross the intraarticular fracture of the medial styloid. Mild intervalhealing since 02/16/2016. The fracture line remains visible, predominantlylaterally. Healing comminuted fracture of the distal ulna with an ununitedwell corticated ossicle adjacent to the tip of the distal ulna.Vogzc-qth-pylcy fixation across the comminuted fracture of the 5thmetacarpal. Fracture line remains visible. Healing fracture of the base ofthe 3rd proximal phalanx and the 1st proximal phalanx. Chondrocalcinosisin the wrist. Scattered degenerative changes throughout the hand andwrist, most marked at the 1st CMC joint where it is advanced. Soft tissueswelling. Electronically signed by: Ashli Grayson MD 9-02-Mar-2016 09:58 us José Antonio Kauffman Jr., P.A.-C. IMG DIAGNOSTIC I MAGING PROCEDURES Final Result * Echo Transthoracic (TTE) (02/25/2016 12:10 PM CDT) Anatomical Region Laterality Modality Echocardiography 02/25/2016 12:1 0 PM CDT us Nickolas Blake M.D., Ph.D. CV ECHO PROCEDURES Catherine l Result * FL Fluoro Less Than 1 Hour (01/14/2016 3:58 PM CDT) Anatomical Region Laterality Modality Radiographic Ayana ging 01/14/2016 3:58 PM CDT Impressions 01/14/2016 4:13 PM CDT Image intensifier used. Image(s) acquired. Electronically signed by: Torsten Pham MD [phone] 14-Jan-2016 16:13 Narrative 01/14/2016 4:13 PM CDT 14-Jan-2016 15:58:00 Exam: Fluoro Assistance less < 1hr Indications: OR 411, ortho, distal radius fracture, first distal phalanx fracture, fifth metacarpal fracture, ulnar styloid fracture, Right Open Reduction Internal Fixation-metacarpal fracture (fifth metacarpal); Right Extensor tendon repair (ring finger); Right Open Reduction Internal Fixation-distal radius fracture; Right Open Reduction Internal Sabdxawq-vkjtigc-sqhdyl fracture (first finger), [facility] ORIGINAL REPORT - 14-Jan-2016 16:13:00 EXAM: Fluoro Assistance less < 1hr: Procedure Note Torsten Pham M.D. - 09/27/2017 14-Jan-2016 15:58:00 Exam: Fluoro Assistance less < 1hr Indications: OR 411, ortho, distal radius fracture, first distal phalanxfracture, fifth metacarpal fracture, ulnar styloid fracture, Right OpenReduction Internal Fixation-metacarpal fracture (fifth metacarpal); RightExtensor tendon repair (ring finger); Right Open Reduction InternalFixation-distal radius fracture; Right Open Reduction HlaixhfvUavslnvq-ytszqmh-blgbdb fracture (first finger), [facility] ORIGINAL REPORT - 14-Jan-2016 16:13:00 EXAM: Fluoro Assistance less < 1hr: IMPRESSION: Image intensifier used. Image(s) acquired. Electronically signed by: Torsten Pham MD [phone] 14-Jan-2016 16:13 us Dulce Angeles IMG FLUOROSCOPY PROCEDURES Final Result * CT 3D Requiring Independent Workstation (01/14/2016 8:40 AM CDT) Anatomical Region Laterality Modality Abdomen, Pelvis Computed Tomogra phy 01/14/2016 8:40 AM CDT Narrative 01/14/2016 3:32 PM CDT 14-Jan-2016 08:40:00 Exam: 3D Requiring independent WS Indications: fx 3D's of rt wrist & hand ORIGINAL REPORT - 14-Jan-2016 15:32:00 3-D images performed on an independent workstation and reside in the CT right CT extremity upper without folder in QREADS dated 01/13/2016. Electronically signed by: Linda Al MD. [phone] 14-Jan-2016 15:32 Procedure Note Bruno Al M.D. - 09/27/2017 14-Jan-2016 08:40:00 Exam: 3D Requiring independent WS Indications: fx 3D's of rt wrist & hand ORIGINAL REPORT - 14-Jan-2016 15:32:00 3-D images performed on an independent workstation and reside in the CTright CT extremity upper without folder in QREADS dated 01/13/2016. Electronically signed by: Linda Al MD. [id number] 14-Jan-2016 15:32 Ho Ferreira M[address]D. IMG CT PROCEDURES Final Result * PLASTIC AND RECON SURGERY IMAGE EXAM (01/14/2016 12:00 AM CDT) Anatomical Region Laterality Modality Other 01/14/2016 Addenda Addendum by ProviderLizzie M.D. on 01/14/2016 12:00 AM CDT PLS^^^MCR Elbow 01/14/2016 00:00:00 Historical Provider IMG NON RAD IMAGING PROCEDUR ES Final Result * CT Upper Extremity without IV Contrast (01/13/2016 11:50 PM CDT) Anatomical Region Laterality Modality Upper Extremity Computed Tomogra phy 01/13/2016 11:5 0 PM CDT Impressions 01/14/2016 9:15 AM CDT 1. Acute, comminuted, intra-articular fracture of the distal right radial metaphysis and epiphysis. 2. Acute, comminuted fracture of the ulnar styloid. 3. Dorsal subluxation/dislocation of the distal ulna in relationship to the radius, suggestive of ligamentous injury at the DRUJ. 4. Additional fractures of the hand, including the right first proximal phalanx, first distal phalanx, fifth metacarpal and third proximal phalanx. 5. Soft tissue edema and blood products about the wrist. FINDINGS: As seen on outside radiographs, there is a acute, comminuted, intra-articular fracture of the distal right radial metaphysis and epiphysis. Mild volar and lateral displacement of the radial styloid fracture fragment. Multiple minimally displaced tiny fracture fragments along the dorsal and volar surface of the distal radius. No definite fracture fragments within the radiocarpal joint. No fracture extension into the DRUJ. Additional comminuted, minimally displaced fracture of the ulnar styloid. 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 There is dorsal subluxation/dislocation of the distal ulna in relationship to the radius, suggestive of ligamentous injury. Degenerative changes about the DRUJ. Acute, comminuted and minimally displaced fracture of the base of the right first proximal phalanx, with intra-articular extension. Acute, nondisplaced fractures of the right first distal phalanx; that there does appear to be a component of this fracture which extends into the IP joint. Acute, mildly displaced fracture of the base of the right fifth metacarpal, with mild lateral displacement of the distal fracture fragment. No definite intra-articular extension. Acute, nondisplaced fracture of the lateral aspect of the base of the right third proximal phalanx. Soft tissue edema and blood products about the wrist. Tiny bone cyst in the capitate. Advanced degenerative changes at the STT joint, including joint space narrowing, subchondral sclerosis and cystic changes. Tiny density medial to the fifth MCP joint is likely due to tiny foreign body. Casting/splinting material about the wrist and hand. Electronically signed by: Manpreet Ovalles MD [phone] 14-Jan-2016 00:15 I have reviewed the films/images and agree with the above interpretation. Electronically signed by: Linda Al MD. [id number] 14-Jan-2016 09:15 Narrative 01/14/2016 9:15 AM CDT 13-Jan-2016 23:50:00 Exam: R CT EXT UPPER wo Indications: fx ORIGINAL REPORT - 14-Jan-2016 00:15:00 EXAM: CT EXT UPPER wo RIGHT COMPARISON: Outside radiograph 01/13/2016 (available in QREADS). Procedure Note Bruno Al M.D. - 09/27/2017 13-Jan-2016 23:50:00 Exam: R CT EXT UPPER wo Indications: fx ORIGINAL REPORT - 14-Jan-2016 00:15:00 EXAM: CT EXT UPPER wo RIGHT COMPARISON: Outside radiograph 01/13/2016 (available in QREADS). IMPRESSION: 1. Acute, comminuted, intra-articular fracture of the distal right radialmetaphysis and epiphysis. 2. Acute, comminuted fracture of the ulnar styloid. 3. Dorsal subluxation/dislocation of the distal ulna in relationship tothe radius, suggestive of ligamentous injury at the DRUJ. 4. Additional fractures of the hand, including the right first proximalphalanx, first distal phalanx, fifth metacarpal and third proximalphalanx. 5. Soft tissue edema and blood products about the wrist. FINDINGS: As seen on outside radiographs, there is a acute, comminuted,intra-articular fracture of the distal right radial metaphysis andepiphysis. Mild volar and lateral displacement of the radial styloidfracture fragment. Multiple minimally displaced tiny fracture fragmentsalong the dorsal and volar surface of the distal radius. No definitefracture fragments within the radiocarpal joint. No fracture extensioninto the DRUJ. Additional comminuted, minimally displaced fracture of theulnar styloid. Well-corticated ossification about the tip of the ulnarstyloid likely represents chronic ununited fracture or ununitedossification center. There is dorsal subluxation/dislocation of the distalulna in relationship to the radius, suggestive of ligamentous injury.Degenerative changes about the DRUJ. Acute, comminuted and minimally displaced fracture of the base of theright first proximal phalanx, with intra-articular extension. Acute,nondisplaced fractures of the right first distal phalanx; that there doesappear to be a component of this fracture which extends into the IP joint.Acute, mildly displaced fracture of the base of the right fifthmetacarpal, with mild lateral displacement of the distal fracturefragment. No definite intra-articular extension. Acute, nondisplacedfracture of the lateral aspect of the base of the right third proximalphalanx. Soft tissue edema and blood products about the wrist. Tiny bone cyst inthe capitate. Advanced degenerative changes at the STT joint, includingjoint space narrowing, subchondral sclerosis and cystic changes. Tinydensity medial to the fifth MCP joint is likely due to tiny foreign body. Casting/splinting material about the wrist and hand. Electronically signed by: Manpreet Ovalles MD [phone] 14-Jan-2016 00:15 I have reviewed the films/images and agree with the above interpretation. Electronically signed by: Linda Al MD. [id number] 14-Jan-2016 09:15 Ho Ferreira M.D. IMG CT PROCEDURES Final Result * Echo Transthoracic (TTE) (02/10/2015 9:05 AM CDT) Anatomical Region Laterality Modality Echocardiography 02/10/2015 9:05 AM CDT Nickolas Blake M.D., Ph.D. CV ECHO PROCEDURES Catherine l Result * Arterial Upper Extremity (10/11/2012 9:58 AM CDT) Anatomical Region Laterality Modality Other 10/11/2012 9:58 AM CDT Wesley Johansen II, M.D., D.P.M. CV CARDIAC CATH PROCEDURES Final Result * Sedimentation Rate (10/11/2012 9:50 AM CDT) Sedimentation Rate, B 0 0 - 22 MM/1 H [facility] 10/11/2012 9:50 AM CDT 10/11/2012 9:50 AM CDT Neha Gardner M.D. LAB BLOOD ADD-ON Final Resul t [facility] [address] * LIZZIE (Antinuclear Antibodies) (10/11/2012 9:50 AM CDT) Antinuclear Ab, S 0.3 <=1.0 (Negative) U [facility] 10/11/2012 9:50 AM CDT 10/11/2012 9:50 AM CDT us Neha Gardner M.D. 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 Coronary Artery Disease (Unspecified) 12/30/2018 Hyperlipidemia 12/30/2018 Fatigue 12/30/2018 Impaired Fasting Glucose 12/30/2018 Cardiomyopathy Ischemic 12/30/2018 Coronary Artery Disease (Unspecified) 12/31/2018 Hyperlipidemia 12/31/2018 Fatigue 12/31/2018 Impaired Fasting Glucose 12/31/2018 Cardiomyopathy Ischemic 12/31/2018 Coronary Artery Disease (Unspecified) 12/31/2018 Hyperlipidemia 12/31/2018 Fatigue 12/31/2018 Impaired Fasting Glucose 12/31/2018 Cardiomyopathy Ischemic 12/31/2018 Coronary Artery Disease (Unspecified) 12/31/2018 Cardiomyopathy Ischemic 12/31/2018 Pain Chest 12/31/2018 Dyspnea On Exertion 12/31/2018 Snoring 12/31/2018 Apnea Sleep Obstructive 12/31/2018 Hyperlipidemia 12/31/2018 Chronic Kidney Disease Stage 3 Glomerular Filtration Rate 30 To 59 12/31/2018 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) 12/31/2018 Aneurysm Coronary Artery 12/31/2018 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) 12/31/2018 Coronary Artery Disease (Unspecified) 01/07/2019 Cardiomyopathy Ischemic 01/07/2019 Pain Chest 01/07/2019 Dyspnea On Exertion 01/07/2019 Snoring 01/07/2019 Apnea Sleep Obstructive 01/07/2019 Coronary Artery Disease (Unspecified) 01/07/2019 Cardiomyopathy Ischemic 01/07/2019 Pain Chest 01/07/2019 Dyspnea On Exertion 01/07/2019 Snoring 01/07/2019 Apnea Sleep Obstructive 01/07/2019 Cardiomyopathy Ischemic 01/21/2019 Failure Heart (HCC) 01/21/2019 Chronic Kidney Disease Stage 3 Glomerular Filtration Rate 30 To 59 01/21/2019 Hyperlipidemia 01/21/2019 Aneurysm Coronary Artery 01/21/2019 Coronary Artery Disease With Stable Angina (HCC) 01/21/2019 Coronary Artery Disease (Unspecified) 01/21/2019 Cardiomyopathy Ischemic 01/21/2019 Pain Chest 01/21/2019 Dyspnea On Exertion 01/21/2019 Snoring 01/21/2019 Apnea Sleep Obstructive 01/21/2019 Failure Heart (HCC) 07/08/2019 Beat Premature Ventricular 07/08/2019 Cardiomyopathy Ischemic 07/08/2019 Coronary Artery Disease With Stable Angina (HCC) 07/08/2019 Aneurysm Coronary Artery 07/08/2019 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 (HCC) 07/08/2019 Hyperlipidemia 07/08/2019 Cardiomyopathy Ischemic 07/08/2019 Failure Heart (HCC) 07/08/2019 Chronic Kidney Disease Stage 3 Glomerular Filtration Rate 30 To 59 07/08/2019 Hyperlipidemia 07/08/2019 Aneurysm Coronary Artery 07/08/2019 Coronary Artery Disease With Stable Angina (HCC) 07/08/2019 Cardiomyopathy Ischemic 07/08/2019 Failure Heart (HCC) 07/08/2019 Chronic Kidney Disease Stage 3 Glomerular Filtration Rate 30 To 59 07/08/2019 Hyperlipidemia 07/08/2019 Aneurysm Coronary Artery 07/08/2019 Coronary Artery Disease With Stable Angina (HCC) 07/08/2019 Cardiomyopathy Ischemic 07/09/2019 Failure Heart (HCC) 07/21/2019 Beat Premature Ventricular 07/21/2019 Cardiomyopathy Ischemic 07/21/2019 Beat Premature Ventricular 06/14/2020 Cardiomyopathy Ischemic 06/14/2020 Coronary Artery Disease With Stable Angina (HCC) 06/14/2020 Hyperlipidemia 06/14/2020 Cardiomyopathy Ischemic 06/16/2020 Coronary Artery Disease With Stable Angina (HCC) 06/16/2020 Aneurysm Coronary Artery 06/16/2020 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 Glomerular Filtration Rate (GFR) 30 To 44 06/16/2020 Ectopy Ventricular 06/16/2020 Beat Premature Ventricular 06/16/2020 Cardiomyopathy Ischemic 06/16/2020 Coronary Artery Disease With Stable Angina (HCC) 06/16/2020 Hyperlipidemia 06/16/2020 Beat Premature Ventricular 06/16/2020 Cardiomyopathy Ischemic 06/16/2020 Coronary Artery Disease With Stable Angina (HCC) 06/16/2020 Hyperlipidemia 06/16/2020 Stroke (HCC) 01/07/2021 Stroke (HCC) 01/19/2021 Stroke (HCC) 03/21/2021 Stroke Cerebrovascular Accident Personal History 03/22/2021 Stroke Cerebrovascular Accident Personal History 03/22/2021 Cerebrovascular Disease 03/22/2021 Spells Neurological (HCC) 03/22/2021 Contact With And (Suspected) Exposure To COVID-19 07/05/2021 COVID-19 Infection 07/06/2021 COVID-19 Infection 07/07/2021 COVID-19 Infection 08/01/2021 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/04/2022 Abdominal Aortic Aneurysm Without Rupture Unspecified (HCC) 04/04/2022 Aneurysm Coronary Artery 04/04/2022 Cardiomyopathy Ischemic 05/05/2022 Coronary Artery Disease With Stable Angina (HCC) 05/05/2022 Aneurysm Coronary Artery 05/05/2022 Ectopy Ventricular 05/05/2022 Hyperlipidemia 05/05/2022 Cardiomyopathy Ischemic 06/09/2022 Coronary Artery Disease With Stable Angina (HCC) 06/09/2022 Aneurysm Coronary Artery 06/09/2022 Ectopy Ventricular 06/09/2022 Hyperlipidemia 06/09/2022 Cardiomyopathy Ischemic 06/09/2022 Coronary Artery Disease With Stable Angina (HCC) 06/09/2022 Aneurysm Coronary Artery 06/09/2022 Ectopy Ventricular 06/09/2022 Hyperlipidemia 06/09/2022 Cardiomyopathy Ischemic 06/09/2022 Coronary Artery Disease With Stable Angina (HCC) 06/09/2022 Aneurysm Coronary Artery 06/09/2022 Ectopy Ventricular 06/09/2022 Hyperlipidemia 06/09/2022 Coronary Artery Disease With Stable Angina (HCC) 06/23/2022 Ectopy Ventricular 06/23/2022 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 Failure (HCC) 06/23/2022 Hyperlipidemia 06/23/2022 Coronary Artery Disease With Stable Angina (HCC) 08/05/2022 Coronary Artery Disease With Stable Angina ([facility]) 08/07/2022 Coronary Artery Disease With Stable Angina (HCC) 05/23/2023 Ectopy Ventricular 05/23/2023 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 Failure (HCC) 05/23/2023 Hyperlipidemia 05/23/2023 Coronary Artery Disease With Stable Angina (HCC) 05/23/2023 Ectopy Ventricular 05/23/2023 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 Failure (HCC) 05/23/2023 Hyperlipidemia 05/23/2023 Coronary Artery Disease With Stable Angina (HCC) 05/23/2023 Ectopy Ventricular 05/23/2023 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 Failure (HCC) 05/23/2023 Hyperlipidemia 05/23/2023 Ectopy Ventricular 05/29/2023 Coronary Artery Disease With Stable Angina ([facility]) 05/30/2023 Ectopy Ventricular 05/30/2023 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 Failure (HCC) 05/30/2023 Hyperlipidemia 05/30/2023 Coronary Artery Disease With Stable Angina ([facility]) 06/15/2023 Ectopy Ventricular 06/15/2023 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 Failure (HCC) 06/15/2023 Hyperlipidemia 06/15/2023 Coronary Artery Disease With Stable Angina ([facility]) 06/15/2023 Ectopy Ventricular 06/15/2023 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 Failure (HCC) 06/15/2023 Hyperlipidemia 06/15/2023 Ectopy Ventricular 06/15/2023 Cardiomyopathy Ischemic 06/15/2023 Coronary Artery Disease With Stable Angina ([facility]) 06/15/2023 Aneurysm Coronary Artery 06/15/2023 Hyperlipidemia 06/15/2023 Ectopy Ventricular 07/06/2023 Cardiomyopathy Ischemic 07/06/2023 Coronary Artery Disease With Stable Angina ([facility]) 07/06/2023 Ectopy Ventricular 07/06/2023 Cardiomyopathy Ischemic 07/06/2023 Coronary Artery Disease With Stable Angina ([facility]) 07/06/2023 Ectopy Ventricular 07/06/2023 Cardiomyopathy Ischemic 07/06/2023 Coronary Artery Disease With Stable Angina ([facility]) 07/06/2023 Ectopy Ventricular 08/09/2023 Cardiomyopathy Ischemic 08/09/2023 Coronary Artery Disease With Stable Angina ([facility]) 08/09/2023 Tachycardia Ventricular Nonsustained ([facility]) 08/09/2023 Coronary Artery Disease With Stable Angina (HCC) 09/18/2023 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] 09/26/2023 Hyperlipidemia [E78.5] 09/26/2023 Aneurysm Coronary Artery [I25.41] 09/26/2023 Tachycardia Ventricular Nonsustained (HCC) [I47.29] 09/26/2023 Coronary Artery Disease With Stable Angina (HCC) [I25.118] 09/26/2023 Tachycardia Ventricular Nonsustained (HCC) 10/09/2023 Tachycardia Ventricular Nonsustained (HCC) 12/18/2023 Hyperlipidemia 12/18/2023 Aneurysm Coronary Artery 12/18/2023 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 Failure (HCC) 12/18/2023 Ectopy Ventricular 12/18/2023 Tachycardia Ventricular Nonsustained (HCC) 12/18/2023 Tachycardia Ventricular Nonsustained (HCC) 01/01/2024 Tachycardia Ventricular Nonsustained (HCC) 01/07/2024 Coronary Artery Disease With Stable Angina (HCC) 01/07/2024 Ectopy Ventricular 01/15/2024 Ectopy Ventricular 01/15/2024 Tachycardia Ventricular Nonsustained (HCC) 01/15/2024 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 Glomerular Filtration Rate (GFR) 30 To 44 01/15/2024 Tachycardia Ventricular Nonsustained (HCC) 03/18/2024 Coronary Artery Disease With Stable Angina (HCC) 03/18/2024 Hyperlipidemia 03/18/2024 Tachycardia Ventricular Nonsustained (HCC) 03/18/2024 Tachycardia Ventricular Nonsustained (HCC) 03/18/2024 Tachycardia Ventricular Nonsustained (HCC) 03/18/2024 Tachycardia Ventricular Nonsustained (HCC) 03/18/2024 Coronary Artery Disease With Stable Angina (HCC) 03/18/2024 Cardiomyopathy Ischemic 03/18/2024 Hypertensive Heart And Chronic Kidney Disease Without Heart Failure With Stage 1 To 4 Chronic Kidney Disease Or Unspecified Chronic Kidney Disease 03/18/2024 Hyperlipidemia 03/18/2024 Stroke Cerebrovascular Accident Personal History 03/18/2024 Obstructive Sleep Apnea Adult 03/18/2024 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) 03/18/2024 Aftercare Cardiac Defibrillator 03/19/2024 Tachycardia Ventricular Nonsustained (HCC) 03/19/2024 Tachycardia Ventricular Nonsustained (HCC) 03/19/2024 Aftercare Cardiac Defibrillator 03/20/2024 Aftercare Cardiac Defibrillator 03/20/2024 Presence Cardioverter- Defibrillator (ICD And AICD) 03/24/2024 Aftercare Cardiac Defibrillator 06/16/2024 Presence Cardioverter- Defibrillator (ICD And AICD) 06/16/2024 Beat Premature Ventricular 06/16/2024 Tachycardia Ventricular Nonsustained (HCC) 06/16/2024 Coronary Artery Disease With Stable Angina (HCC) 06/16/2024 Aneurysm Coronary Artery 06/16/2024 Coronary Artery Disease With Stable Angina (HCC) 03/19/2024 Cardiomyopathy Ischemic 03/19/2024 Chronic Kidney Disease (CKD), Stage 3b Glomerular Filtration Rate (GFR) 30 To 44 (HCC) 03/19/2024 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
--- OUTSIDE RECORDS SUMMARY | 2024-07-07 17:42 | XMS_ITS | Referral Summary ---
Author Organization [facility] Address [address] [place] [id number] Care Team Providers Care Stock Cutter Name Role Phone Elsewhere, Pcp Primary Care Provider Unavailabl e Source Comments Patient records contain information from all sites at [facility]. For routine questions regarding patient records, call [phone] during business hours, M-F 8:00 AM - 5:00 PM Central Time. Record requests for emergency care only can be directed to [phone] at any time.[facility] Encounters Date Type Department Care Team Description 06/16/2024 8:16 AM GANTRY CRANE OPERATOR - 06/16/2024 11:59 PM GANTRY CRANE OPERATOR Hospital Encounter Department of Cardiovascular Diseases in [place], [place] [address] [place] [address] Aaron Galan M.D. Aftercare Cardiac Defibrillator Discharge Disposition: Home or Self Care 06/16/2024 10:00 AM GANTRY CRANE OPERATOR Office Visit Department of Cardiovascular Medicine in [place], [place] [address] [place] [address] Arminda Schaeffer M.D. Beat Premature Ventricular (Primary Dx); Presence Cardioverter- Defibrillator (ICD And AICD); Tachycardia Ventricular Nonsustained (HCC); Coronary Artery Disease With Stable Angina (HCC); Aneurysm Coronary Artery 06/12/2024 2:15 PM GANTRY CRANE OPERATOR Clinical Communication Virtual Review in [place], [place] [address] [place] [address] Pre-visit Intake 05/15/2024 Clinical Communication Department of Cardiovascular Medicine in [place], [place] [address] [place] [phone] Neha Gardner M.D. Update on blood pressures and med 05/01/2024 Documentation Department of Cardiovascular Medicine in [place], [place] [address] [place] [phone] Neha Gardner M.D. 05/01/2024 Orders Only Department of Cardiovascular Medicine in [place], [place] [address] [place] [phone] Neha Gardner M.D. from Last 3 Months Allergies Active Allergy Reactions Criticality Noted Date Comments Amlodipine Hives (Reselect Reaction) High 01/13/2021 Iodinated Contrast Media Anaphylaxis High 05/10/2016 Cardiac arrest during stent placement Iothalamate Sodium Other (see comments) High 022 Contrast Dye Chevyng-Pza-Qpo Reductase Inhibitors Other (see comments) Medium 01/03/2022 Body/Joint Aches Medications acetaminophen (TYLENOL) 325 mg tablet Take [...] Next Due Influenza Split 04/20/2017 Tdap 01/13/2016 Social History Tobacco Use Types Packs/Day Years Used Date Smoking Tobacco: Former Cigarettes 0 0 03/21/2013 - 03/21/2013 Passive Smoke Exposure: Never Smokeless Tobacco: Former Quit: 07/08/1969 Tobacco Cessation:Counseling Given: Not Answered Comments:used tobacco products from when I was about 13 yrs old until about 5 yrs ago. Alcohol Use Standard Drinks/Week Comments Yes 2 (1 standard drink = 0.6 oz pur e alcohol) Not on a regular basis Social Connection and Isolation Panel [NHANES] A nswer Date Recorded In a typical week, how many times do you talk on the phone with family, friends, or neighbors? Twice a week 03/18/20 How often do you get togethe r with friends or relatives? Once a week 03/18/2021 How often do you attend chur ch or scientologist services? 1 to 4 times per year 03/18/2021 Do you belong to any clubs o r organizations such as scientologist groups, unions, fraternal or athletic groups, or [...] and heating? Not hard at all 05/29/2023 [facility] [place] [facility] Occupat ional Health - Occupational Stress [...] your living situation today? I have a [facility] place to live 05/29/2023 Education Answer Date Recorded What is the highest level of school you have completed or the highest degree you have received? 12th grade 03/18/2021 Sex and Gender Information Value Date Recorded Sex Assigned at Male 03/18/2021 9:25 AM CDT Legal Sex Male 6:03 AM GANTRY CRANE OPERATOR Gender Identity Male 12/20/2017 11:12 AM CDT Sexual Orientation Straight 12/20/2017 11 :12 AM CDT Last Filed Vital Signs Vital Sign Reading Time Taken Comments Blood Pressure 144/90 06/16/2024 9:51 AM GANTRY CRANE OPERATOR Pulse 70 06/16/2024 9:51 AM GANTRY CRANE OPERATOR Temperature 36.8 C (98.2 F) 03/24/2024 5:10 PM CDT Respiratory Rate 21 06/12/2017 1:15 PM GANTRY CRANE OPERATOR Value from [employer]. Oxygen Saturation 96% 03/24/2024 5:1 0 PM CDT Inhaled Oxygen Concentration - - Weight 89.7 kg (197 lb 10.3 oz) 06/16/2024 9:51 AM GANTRY CRANE OPERATOR Height 165.9 cm (5' 5.32) 06/16/2024 9 :51 AM GANTRY CRANE OPERATOR Body Mass Index 32.57 06/16/2024 9:51 AM GANTRY CRANE OPERATOR Plan of Treatment Not on file Medical Devices Implanted Type Area Senior Control Systems Engineer Device Identifier Shelf Expiration Date Model / Serial / Lot Conversions - Default Historical Implant Device Implanted:Qty: 2 on 01/14/2016 Ankle Implant Right: Ankle Description:Body Location - Ankle R. Device Status Text - Ankle Imp. Lead Rl4f Defib Biplr 59 - [id number] - [id number] Implanted:Qty: 1 on 03/19/2024 by Kemal Miller M.D. at [facility] Cardiac Lead N/A: Heart [employer] 01/29/2026 [id number] / [id number] / Lead Ppm Ingevity+ Biplr 52 - [id number] - [id number] Implanted:Qty: 1 on 03/19/2024 by Kemal Miller M.D. at [facility] Cardiac Lead N/A: Heart [employer] 01/29/2026 [id number] / [id number] / Variax-Screw Lock Cross Pin 2.3x 8 - Renee [id number] Implanted:Qty: 2 on 01/14/2016 Hardware e.g. pins/screws/rods [place] Description:Device Manufactu rer - [place] Quynh.. Device Status Text - HARDWARE-54390. Trimed-Screw Andrés. 3.5mm X 35mm - Renee [id number] Implanted:Qty: 1 on 01/14/2016 Hardware e.g. pins/screws/rods [employer] Description:Device Manufactu rer - [employer].. Device Status Text - HARDWARE-327382. Variax-Screw Lock Cross Pin 2.3x13 - Renee [id number] Implanted:Qty: 1 on 01/14/2016 Hardware e.g. pins/screws/rods Pol[employer] Description:Device Manufactu rer - [place] Quynh.. Device Status Text - HARDWARE-195704. Variax-Screw Lock Cross Pin 2.3x11 - Renee [id number] Implanted:Qty: 1 on 01/14/2016 Hardware e.g. pins/screws/rods [place] Description:Device Manufactu rer - Polina Quynh.. Device Status Text - HARDWARE-02653. Variax-Plate 2.3mm Profyle T Ji 6ho - Renee [id number] Implanted:Qty: 1 on 01/14/2016 Hardware e.g. pins/screws/rods [employer] Description:Device Manufactu rer - [place] [employer]ynh.. Device Status Text - HARDWARE-425276. Icd Rsn Dr 0.99x5.37x7.38 - [id number] - [id number] Implanted:Qty: 1 on 03/19/2024 by Kemal Miller M.D. at [facility] Implant Cardiac Defibrillator Left: Chest [employer] 02/13/2026 [id number] / [id number] / Conversions - Default Historical Implant Device [...] INTERROGATION WITH PROGRAMMING Routine 06/16/2024 8:47 AM GANTRY CRANE OPERATOR Aftercare Cardiac Defibrillator COMPREHENSIVE METABOLIC PANEL, S/P Routine 03/18/2024 11:06 AM CDT Tachycardia Ventricular Nonsustained (HCC) from Last 3 Months or Most Recently Relevant to Health Maintenance Results * ICD DUAL CHAMBER INTERROGATION WITH PROGRAMMING (06/16/2024 8:47 AM GANTRY CRANE OPERATOR) Date Time Interrogation Session [id number] [facility] Implantable Pulse Generator Senior Control Systems Engineer [employer] Implantable Pulse Generator Type Defibrillator [employer] Implantable Pulse Generator Model D533 [facility] Implantable Pulse Generator Serial Number [id number] [facility] Implantable Pulse Generator Implant Date 20240319 [facility] Battery Status MATIAS [employer]OUND [employer] LAB SYSTEM Chandrakant Statistic RA Percent Paced 72.00 [facility] Chandrakant Statistic RV Percent Paced 4.00 [facility] Lead Channel Sensing Intrinsic Amplitude 4.700 [facility] [employer] Lead Channel Setting Sensing Sensitivity 0.25 [facility] [employer] Lead Channel Impedance Value 595 [facility] Lead Channel Pacing Threshold Amplitude 0.900 [facility] Lead Channel Pacing Threshold Pulse Width 0.4 [facility] Lead Channel Measurements Date and Time 20240616 [facility] Lead Channel Setting Pacing Amplitude 2.000 [facility] Lead Channel Setting Pacing Pulse Width 0.4 [facility] Lead Channel Sensing Intrinsic Amplitude 7.100 [facility] [employer] Lead Channel Setting Sensing Sensitivity 0.60 [facility] [employer] Lead Channel Impedance Value 363 [facility] [employer] Lead Channel Pacing Threshold Amplitude 0.700 [facility] Lead Channel Pacing Threshold Pulse Width 0.4 [facility] Lead Channel Measurements Date and Time 20240320 [facility] Lead Channel Setting Pacing Amplitude 3.500 [facility] Lead Channel Setting Pacing Pulse Width 0.4 [facility] Chandrakant Setting Mode (NBG Code) DDDR [facility] Chandrakant Setting Lower Rate Limit 70 [facility] Chandrakant Setting AT Mode Switch Rate 170 [facility] Chandrakant Setting Maximum Tracking Rate 120 [facility] Chandrakant Setting Maximum Sensor Rate 120 [facility] Chandrakant Setting PAV Delay 180 [...] 2 [facility]OUND[facility] ION [facility] Implantable Lead Senior Control Systems Engineer [employer] [facility] Implantable Lead Model 7841-52 [facility] Implantable Lead Location Right Atrium [facility] Implantable Lead Connection Status Connected [facility] Implantable Lead Serial Number [id number] [facility] Implantable Lead Implant Date 20240319 [facility] Implantable Lead Special Function Lead length: 52.00 cm [facility] Implantable Lead Senior Control Systems Engineer [employer] [facility] Implantable Lead Model 0672-59 [facility] Implantable Lead Location Right Ventricle [facility] Implantable Lead Connection Status Connected [facility] Implantable Lead Serial Number [id number] [facility] Implantable Lead Implant Date 20240319 [facility] Implantable Lead Special Function Lead length: 59.00 cm [facility] Anatomical Region Laterality Modality Echocardiography 06/20/2024 6:18 PM GANTRY CRANE OPERATOR Impressions 06/20/2024 6:18 PM GANTRY CRANE OPERATOR Encounter Impression: Title: Normal In-Office: With Events [...] was reviewed. Narrative Procedure Note Avinash Jefferson M.B.B.SSasha - 06/20/2024 IMPRESSION: Encounter Impression: Title: Normal [...] CV IMPLANTABLE CARDIAC DEVICE Final Result * (ABNORMAL) Comprehensive Metabolic Panel (03/18/2024 11:06 AM CDT) Pathologist [facility] Potassium, S 4.6 3.6 - 5.2 mmol/L [...] LAB BLOOD ADD-ON Fi nal Result [facility] [address] [place] [address], [facility] [address] [place] [address] from Last 3 Months or Most Recently Relevant to Health Maintenance Insurance MEDICA Advance Directives For more information, please contact: [phone] * Full Code (Latest Code Status on File) Date Activated Date Inactivated Comments 03/19/2024 3:30 PM 03/19/2024 8:39 PM Question Answer Comments Full Code: Not Discussed Due to: Patient not available Care Teams Stock Cutter Relationship Specialty Start Date End Date Elsewhere, Pcp PCP - General Internal Medicine 06/12/24
--- OUTSIDE RECORDS SUMMARY | 2024-07-07 17:42 | XMS_ITS ---
Author Organization [facility] Address [address] [place] [address] Care Team Providers Care Environmental Engineer Scientist Name Role Phone Unavailable Unavailable Unavailable Surgery Details Not on file Complications Check Surgery Details section. Procedure Estimated Blood Loss Check Surgery Details section. Procedure Findings Check Surgery Details section. Procedure Specimens Taken Check Surgery Details section.
--- OUTSIDE RECORDS SUMMARY | 2024-07-07 17:43 | XMS_ITS | Encounter Summary ---
Author Organization [facility] Address [address] [place] [phone] Care Team Providers Care Veterinary Medical Officer Name Role Phone Elsewhere, Pcp Primary Care Provider Unavailabl e Encounter Details Date Type Department Care Team (Latest Contact Info) Description 06/16/2024 8:16 AM BAR HELPER - 06/16/2024 11:59 PM BAR HELPER Hospital Encounter Department of Cardiovascular Diseases in [place], [place] [address] [place] [phone] Aaron Galan M.D. [address] [place] [phone] Aftercare Cardiac Defibrillator Discharge Disposition: Home or Self Care Social History Tobacco Use Types Packs/Day Years Used Date Smoking Tobacco: Former Cigarettes 0 0 03/21/2013 - 03/21/2013 Passive Smoke Exposure: Never Smokeless Tobacco: Former Quit: 07/08/1969 Comments:used tobacco produc ts from when I was about 13 yrs [...] 03/18/2021 How often do you attend chur or yarsani services? 1 to 4 times per year 03/18/2021 Do you belong to any clubs o r organizations such as anabaptism groups, unions, fraternal or athletic groups, or [...] and heating? Not hard at all 05/29/2023 [facility] [place] of Occupat ional Health - Occupational Stress [...] your living situation today? I have a [facility] place to live 05/29/2023 Education Answer Date Recorded What is the highest level of school you have completed or the highest degree you have received? 12th grade 03/18/2021 Sex and Gender Information Value Date Recorded Sex Assigned at Male 03/18/2021 9:25 AM CDT Legal Sex Male 6:03 AM BAR HELPER Gender Identity Male 12/20/2017 11:12 AM CDT Sexual Orientation Straight 12/20/2017 11 :12 AM CDT documented as of this encounter Medications at Time of Discharge acetaminophen (TYLENOL) 325 mg tablet Take 650 mg by mouth as needed. amiodarone (Pacerone) 200 mg tablet Take 0.5 tablets (100 mg total) by mouth daily. 03/19/2024 apixaban (ELIQUIS) 5 mg tablet Take 5 mg by mouth 2 (two) times a day. ascorbic acid, vitamin C, 500 mg capsule Take 1 capsule by mouth daily. aspirin [address] tablet Take 81 mg by mouth daily. carvediloL (Coreg) 6.25 mg tablet TAKE 1 TABLET BY MOUTH TWICE DAILY WITH A MEAL /FOOD 05/26/2024 cholecalciferol (Vitamin D3) 125 mcg (5,000 Unit) tablet Take 1 tablet (125 mcg total) by mouth daily. 03/19/2024 ezetimibe (ZETIA) 10 mg tablet Take 1 tablet (10 mg total) by mouth daily. 30 tablet 11 06/16/2020 levETIRAcetam (KEPPRA) 500 mg tablet Take 500 mg by mouth 2 (two) times a day. 06/20/2018 meclizine (ANTIVERT) 25 mg tablet Take 25 mg by mouth 3 (three) times a day as needed for dizziness. nitroglycerin (NITROSTAT) 0.4 mg SL tablet DISSOLVE ONE TABLET UNDER THE TONGUE EVERY 5 MINUTES NEEDED FOR CHEST PAIN. DO NOT EXCEED A TOTAL OF 3 DOSES IN 15 MINUTES 25 tablet 3 08/29/2021 pantoprazole (PROTONIX) 40 mg EC tablet Take 40 mg by mouth every morning before breakfast. rosuvastatin (CRESTOR) 10 mg tablet Take 10 mg by mouth 3 (three) times a week. Every Sunday, Sunday, and Sunday 30 tablet 11 12/18/2023 torsemide (Demadex) 5 mg tablet Take 1 tablet (5 mg total) by mouth daily. Continue rotation list below: Day 1 - 1 Tablet Day 2 - 2 Tablets 90 tablet 03/24/2024 valsartan (Diovan) 160 mg tablet Take 160 mg by mouth 2 (two) times a day. 06/13/2024 documented as of this encounter Plan of Treatment Not on file documented as of this encounter Procedures Procedure Name Priority Date/Time Associated Diagnosis Comments ICD DUAL CHAMBER INTERROGATION WITH PROGRAMMING Routine 06/16/2024 8:47 AM BAR HELPER Aftercare Cardiac Defibrillator documented in this encounter Results * ICD DUAL CHAMBER INTERROGATION WITH PROGRAMMING (06/16/2024 8:47 AM BAR HELPER) Date Time Interrogation Session [id number] [facility] Implantable Pulse Generator Horse Race Timer [employer] [facility] Implantable Pulse Generator Type Defibrillator [facility] Implantable Pulse Generator Model D533 [facility] Implantable Pulse Generator Serial Number [id number] [facility] Implantable Pulse Generator Implant Date 20240319 [facility] Battery Status [facility] [place] Statistic RA Percent Paced 72.00 [facility] [place] Statistic RV Percent Paced 4.00 [facility] Lead Channel Sensing Intrinsic Amplitude 4.700 [facility] Lead Channel Setting Sensing Sensitivity 0.25 [facility] Lead Channel Impedance Value 595 [facility] Lead Channel Pacing Threshold Amplitude 0.900 [facility] Lead Channel Pacing Threshold Pulse Width 0.4 [employer] [facility] Lead Channel Measurements Date and Time 20240616 [facility] Lead Channel Setting Pacing Amplitude [...] SYSTEM [place] Setting Maximum Sensor Rate 120 [facility] [place] Setting PAV Delay 180 [facility] [place] Setting CARLOS Delay 150 [facility] Therapy Statistic Recent Shocks Delivered [...] 2 [facility] Implantable Lead Horse Race Timer [employer] [facility] Implantable Lead Model 7841-52 [facility] Implantable Lead Location Right [employer] Implantable Lead Connection Status Connected [facility] Implantable Lead Serial Number [id number] [facility] Implantable Lead Implant Date 20240319 [facility] Implantable Lead Special Function Lead length: 52.00 cm [facility] Implantable Lead Horse Race Timer [employer] [facility] Implantable Lead Model 0672-59 [facility] Implantable Lead Location Right Ventricle [facility] Implantable Lead Connection Status Connected [facility] Implantable Lead Serial Number [id number] [facility] Implantable Lead Implant Date 20240319 [facility] Implantable Lead Special Function Lead length: 59.00 cm [facility] Anatomical Region Laterality Modality Echocardiography 06/20/2024 6:18 PM BAR HELPER Impressions 06/20/2024 6:18 PM BAR HELPER Encounter Impression: Title: Normal In-Office: With Events [...] M.D. CV IMPLANTABLE CARDIAC DEVICE Final Result documented in this encounter Visit Diagnoses Diagnosis Aftercare Cardiac Defibrillator documented in this encounter Care Teams Veterinary Medical Officer Relationship Specialty Start Date End Date Elsewhere, Pcp PCP - General Internal Medicine 06/12/24 documented as of this encounter
--- OUTSIDE RECORDS SUMMARY | 2024-07-07 17:43 | XMS_ITS | Encounter Summary ---
Author Organization [facility] Address [address] [place] [id number] Care Team Providers Care Alterations Sewer Name Role Phone Elsewhere, Pcp Primary Care Provider Unavailabl e Reason for Visit * Reason Onset Date Comments Pre-visit Intake 06/12/2024 * Appointment Request (Routine) - Authorized Specialty Diagnoses / Procedures Referred By Alisia jones Referred To Contact Cardiovascular Disease Referral ID Status Reason Start Date Expiration Date V isits Requested Visits Authorized [id number] Authorized 03/25/2024 03/25/2025 1 1 Encounter Details Date Type Department Care Team (Latest Contact Info) Description 06/12/2024 2:15 PM GIZZARD PEELER Clinical Communication Virtual Review in [place], [place] [address] [place] [address] Pre-visit Intake Social History Tobacco Use Types Packs/Day Years [...] often do you attend chur ch or shinto services? 1 to 4 times per year 03/18/2021 Do you belong to any clubs o r organizations such as gnosticism groups, unions, fraternal or athletic groups, or [...] and heating? Not hard at all 05/29/2023 [facility] of Occupat ional Health - Occupational Stress [...] AM CDT Legal Sex Male 6:03 AM GIZZARD PEELER Gender Identity Male 12/20/2017 11:12 AM CDT Sexual Orientation Straight 12/20/2017 11 :12 AM CDT documented as of this encounter Plan of Treatment Not on file documented as of this encounter Visit Diagnoses Not on filedocumented in this encounter Care Teams Alterations Sewer Relationship Specialty Start Date End Date Elsewhere, Pcp PCP - General Internal Medicine 06/12/24 documented as of this encounter
--- OUTSIDE RECORDS SUMMARY | 2024-07-07 17:43 | XMS_ITS | Encounter Summary ---
Author Organization [facility] Address [address] [place] [address] Care Team Providers Care Human Resource Manager Name Role Phone Elsewhere, Pcp Primary Care Provider Unavailabl e Reason for Visit * Reason Onset Date Comments Update on blood pressures and med 05/15/2024 Encounter Details Date Type Department Care Team (Latest Contact Info) Description 05/15/2024 Clinical Communication Department of Cardiovascular Medicine in [place], [place] [address] [place] [phone] Neha Gardner M.D. [address] [place] [phone] Update on blood pressures and med Social History Tobacco Use Types Packs/Day Years Used Date Smoking Tobacco: Former Cigarettes 0 0 03/21/2013 - 03/21/2013 Smokeless Tobacco: Former Quit: 07/08/1969 Comments:used tobacco [...] often do you attend chur ch or religion services? 1 to 4 times per year 03/18/2021 Do you belong to any clubs o r organizations such as latter day groups, unions, fraternal or athletic groups, or [...] and heating? Not hard at all 05/29/2023 [facility] [place] of Occupat ional Health - Occupational Stress [...] your living situation today? I have a [facility] place to live 05/29/2023 Education Answer Date Recorded What is the highest level of school you have completed or the highest degree you have received? 12th grade 03/18/2021 Sex and Gender Information Value Date Recorded Sex Assigned at Male 03/18/2021 9:25 AM CDT Legal Sex Male 6:03 AM HIGH SCHOOL ADMISSIONS REPRESENTATIVE Gender Identity Male 12/20/2017 11:12 AM CDT Sexual Orientation Straight 12/20/2017 11 :12 AM CDT documented as of this encounter Plan of Treatment Not on file documented as of this encounter Visit Diagnoses Not on filedocumented in this encounter Care Teams Human Resource Manager Relationship Specialty Start Date End Date Elsewhere, Pcp PCP - General Internal Medicine 06/12/24 documented as of this encounter
--- OUTSIDE RECORDS SUMMARY | 2024-07-07 17:43 | XMS_ITS | Encounter Summary ---
Author Organization [facility] Address [address] [place] [address] Care Team Providers Care Real Estate Appraiser Name Role Phone Elsewhere, Pcp Primary Care Provider Unavailabl e Reason for Referral * Outpatient (Routine) - Authorized Specialty Diagnoses / Procedures Referred By Contac t Referred To Contact Cardiovascular Disease Arminda Schaeffer M.D. 200 [place] [address] Phone: tel: fax: [facility] Referral ID Status Reason Start Date Expiration Date V isits Requested Visits Authorized [id number] Authorized 06/16/2024 12/16/2025 1 1 NG MACHINE OPERATOR PRODUCTION * Outpatient (Routine) - Authorized Specialty Diagnoses / Procedures Referred By Contac t Referred To Contact Diagnoses Presence Cardioverter- Defibrillator (ICD And AICD) Beat Premature Ventricular Procedures ECG 12 Lead Arminda Schaeffer M.D. 200 [place] [address] Phone: tel: fax: [facility] Referral ID Status Reason Start Date Expiration Date V isits Requested Visits Authorized [id number] Authorized 06/16/2024 06/16/2025 1 1 NG MACHINE OPERATOR PRODUCTION * Cardiovascular-Diagnostic (Routine) - Authorized Specialty Diagnoses / Procedures Referred By Alisia jones Referred To Contact Diagnoses Presence Cardioverter- Defibrillator (ICD And AICD) Beat Premature Ventricular Procedures Echo Transthoracic (TTE) Arminda Schaeffer M.D. [address] [place] [phone] Phone: tel: fax: [facility] Referral ID Status Reason Start Date Expiration Date V isits Requested Visits Authorized [id number] Authorized 06/16/2024 06/16/2025 1 1 NG MACHINE OPERATOR PRODUCTION Reason for Visit * Outpatient (Routine) - Closed Specialty Diagnoses / Procedures Referred By Alisia jones Referred To Contact Cardiovascular Disease Suzy Silver APRN, C.N.P., M.S.N. [address] [place] [phone] Phone: tel: fax: Arminda Schaeffer M.D. [address] [place] [phone] Phone: tel: fax: Referral ID Status Reason Start Date Expiration Date Visits Re quested Visits Authorized [id number] Closed 03/19/2024 09/18/2025 1 1 Encounter Details Date Type Department Care Team (Latest Contact Info) Description 06/16/2024 10:00 AM HONING MACHINE OPERATOR PRODUCTION Office Visit Department of Cardiovascular Medicine in [place], [place] [address] [place] [phone] Arminda Schaeffer M.D. [address] [place] [phone] Beat Premature Ventricular (Primary Dx); Presence Cardioverter- Defibrillator (ICD And AICD); Tachycardia Ventricular Nonsustained (HCC); Coronary Artery Disease With Stable Angina (HCC); Aneurysm Coronary Artery Social History Tobacco Use Types Packs/Day Years [...] often do you attend chur ch or quaker services? 1 to 4 times per year 03/18/2021 Do you belong to any clubs o r organizations such as hoahaoism groups, unions, fraternal or athletic groups, or [...] and heating? Not hard at all 05/29/2023 [facility] [place] of Occupat ional Health - Occupational Stress [...] your living situation today? I have a [facility] place to live 05/29/2023 Education Answer Date Recorded What is the highest level of school you have completed or the highest degree you have received? 12th grade 03/18/2021 Sex and Gender Information Value Date Recorded Sex Assigned at Male 03/18/2021 9:25 AM CDT Legal Sex Male 6:03 AM HONING MACHINE OPERATOR PRODUCTION Gender Identity Male 12/20/2017 11:12 AM CDT Sexual Orientation Straight 12/20/2017 11 :12 AM CDT documented as of this encounter Last Filed Vital Signs Vital Sign Reading Time Taken Comments Blood Pressure 144/90 06/16/2024 9:51 AM HONING MACHINE OPERATOR PRODUCTION Pulse 70 06/16/2024 9:51 AM HONING MACHINE OPERATOR PRODUCTION Temperature - - Respiratory Rate - - Oxygen Saturation - - Inhaled Oxygen Concentration - - Weight 89.7 kg (197 lb 10.3 oz) 06/16/2024 9:51 AM HONING MACHINE OPERATOR PRODUCTION Height 165.9 cm (5' 5.32) 06/16/2024 9:51 AM CS T Body Mass Index 32.57 06/16/2024 9:51 AM HONING MACHINE OPERATOR PRODUCTION documented in this encounter Consult Notes * Arminda Schaeffer M.D. - 06/16/2024 10:00 AM CST REFERRAL SOURCE: Referring Provider: Suzy Silver APRN, * SUBJECTIVE CHIEF COMPLAINT / REASON FOR VISIT Mr. Lehman is a 79 y.o. male who [facility] today for follow-up. Mr. Lehman's past medical history is as follows: # Inducible VT s/p dual chamber ICD 03/25 # PVC, on amiodarone # Ischemic cardiomyopathy with improved EF # Coronary artery disease s/p 3 vessel coronary artery bypass grafting (June 2017) # Remote history of postoperative atrial fibrillation # Borderline to mild ascending aorta dilatation + infrarenal abdominal aortic aneurysm (3.5 cm) # Chronic cerebro(micro)vascular ischemic changes with prior indeterminate neurologic spells # Chronic kidney disease stage 3b # Obstructive sleep apnea maintained on CPAP # Presumptive seizure maintained on levetiracetam In 2021, he saw Dr. Gardner for routine follow-up and was found to have 21% burden of PVCs. There were various morphology but the majority arising from the left ventricle inferoseptal base. After a discussion of various options, the patient decided to monitor. On follow-up, his ventricular ectopy increased to 41% with runs of nonsustained VT (longest being [address] Gardner, the patient proceeded with initiation of low dose amiodarone with subsequent improvement in PVC burden to 7%. He also takes metoprolol succinate. We ultimately proceeded with an EP study during which he has inducible for VT and proceeded with a dual chamber ICD implant. He had postprocedure hematoma but ultimately did well. He presents for follow-up today. He notes overall improvement in his quality of life and cardiovascular health. The PVCs are asymptomatic and he may tense on amiodarone. He does not notice any overt effects of amiodarone at the moment. The following portions of the patient's history were reviewed and updated as appropriate: allergies, current medications, family history, medical history, social history, surgical history, psychiatric history, substance abuse history, problem list, labs, diagnostics tests. I also reviewed pertinentclinical notes in the electronic health record. REVIEW OF SYSTEMS A comprehensive review of systems was completed; pertinent abnormalities are included in the History of Present Illness. Cardiac Medications: Current Outpatient Medications: valsartan (Diovan) 160 mg tablet, Take 160 mg by mouth 2 (two) times a day., Disp: , Rfl: acetaminophen (TYLENOL) 325 mg tablet, Take 650 mg by mouth as needed., Disp: , Rfl: amiodarone (Pacerone) 200 mg tablet, Take 0.5 tablets (100 mg total) by mouth daily., Disp: , Rfl: apixaban (ELIQUIS) 5 mg tablet, Take 5 mg by mouth 2 (two) times a day., Disp: , Rfl: ascorbic acid, vitamin C, 500 mg capsule, Take 1 capsule by mouth daily. , Disp: , Rfl: aspirin [address] tablet, Take 81 mg by mouth daily., Disp: , Rfl: carvediloL (Coreg) 6.25 mg tablet, TAKE 1 TABLET BY MOUTH TWICE DAILY WITH A MEAL /FOOD, Disp: , Rfl: cholecalciferol (Vitamin D3) 125 mcg (5,000 Unit) tablet, Take 1 tablet (125 mcg total) by mouth daily., Disp: , Rfl: ezetimibe (ZETIA) 10 mg tablet, Take 1 tablet (10 mg total) by mouth daily., Disp: 30 tablet, Rfl: 11 levETIRAcetam (KEPPRA) 500 mg tablet, Take 500 mg by mouth 2 (two) times a day. , Disp: , Rfl: meclizine (ANTIVERT) 25 mg tablet, Take 25 mg by mouth 3 (three) times a day as needed for dizziness., Disp: , Rfl: nitroglycerin (NITROSTAT) 0.4 mg SL tablet, DISSOLVE ONE TABLET UNDER THE TONGUE EVERY 5 MINUTES ASNEEDED FOR CHEST PAIN. DO NOT EXCEED A TOTAL OF 3 DOSES IN 15 MINUTES, Disp: 25 tablet, Rfl: 3 pantoprazole (PROTONIX) 40 mg EC tablet, Take 40 mg by mouth every morning before breakfast. , Disp: , Rfl: rosuvastatin (CRESTOR) 10 mg tablet, Take 10 mg by mouth 3 (three) times a week. Every Sunday, Sunday, and Sunday, Disp: 30 tablet, Rfl: 11 torsemide (Demadex) 5 mg tablet, Take 1 tablet (5 mg total) by mouth daily. Continue rotation list below: Day 1 - 1 Tablet Day 2 - 2 Tablets, Disp: 90 tablet, Rfl: 0 OBJECTIVE BP 144/90 (BP Location: Left arm, Patient Position: Sitting, Cuff Size: Regular) Pulse 70 Ht 165.9 cm Wt 89.7 kg BMI 32.57 kg/m?? PHYSICAL EXAMINATION General: Appears comfortable, stated age, and in no acute distress. Cardiovascular: Regular rate and rhythm with a good S1 and S2. No murmurs Lungs: Clear to auscultation bilaterally. Abdomen: Good bowel sounds throughout. Nontender. Nondistended. Extremities: Warm and well perfused. No lower extremity edema. Neuro: Alert and oriented x 3. Moves all extremities grossly. Psychiatric: Affect congruent. Answers questions appropriately. DIAGNOSTICS I have reviewed the relevant labs, imaging, and diagnostic workup with relevant data below: Imaging: Echocardiogram 03/25: 1. Mildly enlarged left ventricular chamber size, [...] cava size with normal inspiratory collapse (>50%). MRI: 1. Linear mid-myocardial and subepicardial late enhancement [...] ventricular size and systolic function. RVEF 45%. Device interrogation: Encounter Impression: Title: Normal In-Office: With Events [...] reviewed * Pacing and Detection Parameters were evaluate PVC burden is around 4% ASSESSMENT / PLAN # Premature ventricular contractions, on amiodarone # Ischemic cardiomyopathy with improved EF # Coronary artery disease s/p 3 vessel coronary artery bypass grafting (June 2017) # Remote history of postoperative atrial fibrillation # Borderline to mild ascending aorta dilatation + infrarenal abdominal aortic aneurysm (3.5 cm) # history of CVA # Chronic kidney disease stage 3b # Obstructive sleep apnea maintained on CPAP It was a pleasure to meet Mr. Lehman in clinic today. He comes today with his son and to discussion management options for his PVCs. He is on amiodarone and has had a decrease in his PVC burden from 41% to around 4%. We discussed options for management of PVCs given that he is asymptomatic and has a preserved LV function. We discussed the possibility of catheter ablation versus continuing on amiodarone while being watchful for side effects. Specifically, we discussed amiodarone related toxicity such as vision, photosensitivity, lung damage, kidney damage, liver damage, thyroid issues, amongst others. We discussed the importance of surveillance, this includes 2x/annual eye exam, LFTs, TFTs, x-ray, PFTs, CBC, Cr, and LFTs. He wishes to a void invasive procedures at the moment and I think this is reasonable given his prior history and multiple comorbidities. The patient is agreeable to close monitoring and will call us if any side effects are noted. Recommendations: Continue amiodarone 100 mg daily Return to clinic in 6 months with blood work, echo, device interrogation prior Arminda Schaeffer M.D. 06/16/2024 NG MACHINE OPERATOR PRODUCTION documented in this encounter Plan of Treatment Scheduled Orders Name Type Priority Associated Diagnoses Order Schedule Cardiac Device Interrogation Implantable Cardiac Device Routine Presence Cardioverter- Defibrillator (ICD And AICD) Beat Premature Ventricular Expected: 12/15/2024, Expires: 09/14/2025 Echo Transthoracic (TTE) Echocardiography Routine Presence Cardioverter- Defibrillator (ICD And AICD) Beat Premature Ventricular Expected: 12/15/2024, Expires: 09/14/2025 ECG 12 Lead ECG Routine Presence Cardioverter- Defibrillator (ICD And AICD) Beat Premature Ventricular Expected: 12/15/2024, Expires: 09/14/2025 Comprehensive Metabolic Panel Lab Routine Presence Cardioverter- Defibrillator (ICD And AICD) Beat Premature Ventricular Expected: 12/15/2024, Expires: 09/14/2025 Thyroid Function [facility] Routine Presence Cardioverter- Defibrillator (ICD And AICD) Beat Premature Ventricular Expected: 12/15/2024, Expires: 09/14/2025 Pulmonary Function Tests PFT Routine Presence Cardioverter- Defibrillator (ICD And AICD) Beat Premature Ventricular Expected: 12/15/2024, Expires: 09/14/2025 Scheduled Referrals Name Type Priority Associated Diagnoses Order Schedule Cardiovascular Disease office visit (clinic) Outpatient Referral Routine Expect ed: 12/15/2024, Expires: 09/14/2025 documented as of this encounter Visit Diagnoses Diagnosis Beat Premature Ventricular- Primary Presence Cardioverter- Defibrillator (ICD And AICD) Tachycardia Ventricular Nonsustained (HCC) Coronary Artery Disease With Stable Angina (HCC) Aneurysm Coronary Artery documented in this encounter Care Teams Real Estate Appraiser Relationship Specialty Start Date End Date Elsewhere, Pcp PCP - General Internal Medicine 06/12/24 documented as of this encounter
[2024-07-07 18:16] VITALS: BP 146/87; PULSE 81; RESP 20; TEMP 37.2; O2SAT 92; BMI 31.3
--- NOTE | 2024-07-07 18:54 | ED_ITS ---
HPI - General Adult General Date Seen: 07/07/24 Chief complaint: GI Bleed Stated complaint: rectal bleeding/lathargic Time Seen by Provider: 07/07/24 18:51 History of Present Illness HPI narrative: 79-year-old gentleman with a past medical history of stroke, atrial fibrillation, pacemaker, CHF, COPD, coronary artery aneurysm, hyperlipidemia, ascending and abdominal aortic aneurysm, sleep apnea. he is currently on apixaban and amiodarone for AFib. He has a history of hemorrhoids that bleed in a minor fashion or occasionally. For instance, sometimes he notes movement of bright red blood per rectum after he has a long car ride. Today she was passing a bowel movement about 4:00 p.m. that was brown and nonbloody and then had abrupt onset of bright red liquid E blood per rectum. He was bleeding into the toilet and says the bleeding was dripping fairly briskly. The bleeding persisted for about an hour at home and just would not stop. He was concerned about the persistence of bleeding so called his son. His son came to his house and found the patient who was still bleeding from his rectum. He looked pale at home so his son brought him straight here to the ER. He has been taking his Eliquis lately, including this morning. He is not having any rectal pain. No abdominal pain. Now that he is here in the ER is feeling better. No lightheadedness or dizziness. Related Data Home Medications ?Medication ?Instructions ?Recorded ?Confirmed nitroglycerin 0.4 mg sublingual 0.4 mg sublingual Q5M PRN 02/02/22 05/15/24 tablet levetiracetam 500 mg tablet 500 mg PO BID 03/13/22 05/15/24 (Keppra) ascorbic acid (vitamin C) 500 mg 500 mg PO DAILY 10/14/22 05/15/24 tablet acetaminophen 325 mg tablet 650 mg PO Q6H PRN 09/19/23 05/15/24 aspirin 81 mg tablet,delayed 81 mg PO DAILY 09/19/23 05/15/24 release cholecalciferol (vitamin D3) 125 125 mcg PO DAILY 09/19/23 05/15/24 mcg (5,000 unit) capsule ezetimibe 10 mg tablet 10 mg PO HS 09/19/23 05/15/24 trazodone 50 mg tablet 50 mg PO HS 12/11/23 05/15/24 amiodarone 100 mg tablet 100 mg PO QDAY 12/13/23 05/15/24 torsemide 5 mg tablet 10 mg PO DAILY 01/23/24 05/15/24 Previous Rx's ?Medication ?Instructions ?Recorded meclizine 25 mg tablet 25 mg PO TID PRN dizziness #90 tabs 10/10/23 pantoprazole 40 mg tablet,delayed 40 mg PO DAILY #90 tabs 11/23/23 release apixaban 5 mg tablet (Eliquis) 5 mg PO BID #180 tabs 05/09/24 torsemide 5 mg tablet 5 - 10 mg (1 - 2 x 5 mg) PO QAM 05/19/24 #135 tabs carvedilol 6.25 mg tablet 6.25 mg PO BID #180 tabs 05/26/24 rosuvastatin 10 mg tablet 10 mg PO 3XW #45 tabs 05/28/24 valsartan 160 mg tablet 160 mg PO BID #180 tabs 06/11/24 Allergies Allergy/AdvReac Type Severity Reaction Status Date / Time amlodipine Allergy Severe hives/rash Verified 05/15/24 14:09 [id number] Reductase AdvReac Intermediate myalgia Verified 05/15/24 14:09 Inhibitor iothalamate Allergy Severe had to do Uncoded 05/15/24 14:09 chest compressions and shock heart with angio dye [facility] Medical History (Updated 07/07/24 @ 23:11 by Jelani Aragon MD) Bradycardia ?R00.1 - Bradycardia, unspecified (ICD-10) History of CVA (cerebrovascular accident) (~08/2023) ?Z86.73 - Personal history of transient ischemic attack (TIA), and cerebral infarction without residual deficits (ICD-10) Ulnar neuropathy ?G56.20 - Lesion of ulnar nerve, unspecified upper limb (ICD-10) Arrhythmia ?I49.9 - Cardiac arrhythmia, unspecified (ICD-10) Former smoker ?Z87.891 - Personal history of nicotine dependence (ICD-10) Hyperlipidemia ?E78.5 - Hyperlipidemia, unspecified (ICD-10) 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 - Ventricular premature depolarization (ICD-10) Coronary artery aneurysm ?I25.41 - Coronary artery aneurysm (ICD-10) Cerebrovascular disease ?I67.9 - Cerebrovascular disease, unspecified (ICD-10) Ribs, multiple fractures ?S22.49XA - Multiple fractures of ribs, unspecified side, initial encounter for closed fracture (ICD-10) BPPV (benign paroxysmal positional vertigo) ?H81.10 - Benign paroxysmal vertigo, unspecified ear (ICD-10) Surgical History History of three vessel coronary artery bypass ?Z95.1 - Presence of aortocoronary bypass graft (ICD-10) History of surgery on right wrist ?Z98.890 - Other specified postprocedural states (ICD-10) History of carpal tunnel surgery of left wrist ?Z98.890 - Other specified postprocedural states (ICD-10) History of ankle surgery ?Z98.890 - Other specified postprocedural states (ICD-10) Family History Mother Asthma Maternal Grandmother Diabetes Family/Other Cardiomyopathy Father High blood pressure Social History (Updated 12/10/23 @ 21:23 by Eris Garcia MD) Narrative: . is undergoing treatment for Multiple Myeloma and has some cognitive impairment. Son, Jelani, lives with them and sets up meds for the patient and his . Son works during the day and stops by the house or calls 1-5 times during the work day to check on them. Does not use illicit drugs Former smoker- quit in 2011 Occasional alcohol consumption Can ambulate without a walker but uses a four-wheel walker when he goes on longer walks so he can stop and rest. What is your current living situation?: I presently have a place to live Problems where you live: no known problems Problems where you live details: n/a In the past 12 months, utilities in danger of being shut off: no In past 12 months, lack of transportation kept you from medical appts, meetings, work, or getting things needed for daily living: no In the past 12 mos, have been you worried that your food would run out before you had money to buy more?: never true In the past 12 mos, the food you bought just didn't last and you didn't have money to buy more?: never true Highest level of school completed/degree received: Associate degree: occupational, technical, vocational program Smoking Status: Former smoker Do you use any of these nicotine containing products: None Second hand tobacco smoke exposure: No How often do you have a drink containing alcohol: never How many standard drinks containing alcohol do you have on a typical day: 1 or 2 How often do you have six or more drinks on one occasion: Never AUDIT-C Alcohol total score: 0 Non-prescribed substance use: denies use How often does anyone, including family, friends and others, physically hurt you : never How often does anyone, including family, friends and others, insult or talk down to you: never How often does anyone, including family, friends and others, threaten you with harm: never How often does anyone, including family, friends and others, scream or curse at you: never service: No Exam Narrative: Exam Narrative: Constitutional: Appears well-developed and well-nourished. Alert. Conversant. Non toxic. HENT: Head: Atraumatic. Nose: Nose normal. Mouth/Throat: Oral mucosa is clear and moist. no trismus. Pharynx normal. Tonsils symmetric. No tonsillar enlargement, erythema, or exudate. Eyes: Conjunctivae normal. EOM normal. Pupils equal, round, and reactive to light. No scleral icterus. Neck: Normal range of motion. Neck supple. No tracheal deviation present. Cardiovascular: Pacemaker in left upper chest. Normal rate, regular rhythm. No gallop. No friction rub. No murmur heard. Symmetric radial artery pulses Pulmonary/Chest: Effort normal. No stridor. No respiratory distress. No wheezes. No rales. No rhonchi . No tenderness. Abdominal: Soft. Bowel sounds normal. No distension. No mass. No tenderness. No rebound. No guarding. Rectal: He does have bright red blood in the gluteal cleft which I wiped away. He does have what appears to be a thrombosed hemorrhoid, I think it is probably an internal hemorrhoid that is prolapsed out and is oozing of dark red blood. The prolapsed hemorrhoid is slightly tender. He is stoic. We infiltrated around the hemorrhoid with 1% lidocaine with epinephrine. I then applied a dressing with surgeon foam over the bleeding site on the hemorrhoid. Musculoskeletal: RUE: Normal range of motion. No tenderness. No deformity LUE: Normal range of motion. No tenderness. No deformity RLE: Normal range of motion. No edema. No tenderness. No deformity LLE: Normal range of motion. No edema. No tenderness. No deformity Lymph: No cervical adenopathy. Neurological: Alert and oriented to person, place, and time. Normal strength. CN II-VII intact. No sensory deficit. GCS eye subscore is 4. GCS verbal subscore is 5. GCS motor subscore is 6. Normal coordination Skin: Skin is warm and dry. No rash noted. No pallor. Normal capillary refill. Psychiatric: Normal mood. Normal affect. Const: Vital Signs, click to edit/add: Vital Signs - 24 hr 07/07/24 18:16 Temperature 99 F Pulse Rate [Pulse Oximeter] 81 Respiratory Rate 20 Blood Pressure [Le ft Upper Arm] 146/87 H Pulse Oximetry 92 Oxygen Delivery Me thod Room Air Course Course ED Course: Recheck-after local infiltration of 1% lidocaine with epinephrine-5 mL into the soft tissue around the hemorrhoid and application of surgeon foam to the bleeding hemorrhoid, bleeding is stopped. No active bleeding or oozing at this time. Recheck-hemoglobin came back reassuring at 13.8. Patient has been resting in bed for a couple of hours that her recurrent bleeding. Will try ambulation trial. Patient was easily ambulatory (using his cane) in the hallway to go to the bathroom. Urination was fine. He did not note any bleeding going to and from the bathroom but when I came back to recheck him again he had dislodged the Gelfoam and bleeding had recurred. We reapplied another Gelfoam dressing and bleeding again. Recheck-currently not bleeding. His and his family are comfortable discharging to home. Vital Signs Vital signs: Initial Vital Signs Temperature 99 F 07/07/24 18:16 Temperature Source Temporal Artery Scan 07/07/24 18:16 Pulse Rate 81 07/07/24 18:16 Respiratory Rate 20 07/07/24 18:16 Blood Pressure 146/87 H 07/07/24 18:16 Blood Pressure Mean 106 H 07/07/24 18:16 Blood Pressure Position Sitting 07/07/24 18:16 Pulse Oximetry 92 07/07/24 18:16 Oxygen Delivery Method Room Air 07/07/24 18:16 Vital Signs Temperature 99 F 07/07/24 18:16 Pulse Rate 81 07/07/24 18:16 Respiratory Rate 20 07/07/24 18:16 Blood Pressure 146/87 H 07/07/24 18:16 Pulse Oximetry 92 07/07/24 18:16 Oxygen Delivery Method Room Air 07/07/24 18:16 Temperature 99 F 07/07/24 18:16 Pulse Rate 81 07/07/24 18:16 Respiratory Rate 20 07/07/24 18:16 Blood Pressure 146/87 H 07/07/24 18:16 Pulse Oximetry 92 07/07/24 18:16 Oxygen Delivery Method Room Air 07/07/24 18:16 Medical Decision Making MDM Narrative Medical decision making narrative: This is a very pleasant 79-year-old gentleman on Eliquis for stroke prophylaxis with AFib presenting to the ER today with bright red blood per rectum that began around 4:00 p.m. this afternoon after passing a bowel movement. Differential is broad including rectal fissure, bleeding hemorrhoid, and other causes of lower GI bleeding such as proctitis, colitis, AVM, diverticular bleeding, among others. Clinical exam reveals no abdominal tenderness, stable vital signs, normal hemoglobin, and exam shows evidence for a bleeding hemorrhoid. This appears to be a bleeding internal hemorrhoid which is prolapsed out of the rectum. Since he is anticoagulated on Eliquis, I suspect the bleeding is exaggerated over what otherwise might have been. Fortunately we were able to get control the bleeding by application of Gel-Foam and infiltration of lidocaine with appy. At this point he is hemodynamically stable and bleeding has stopped. I think he is safe for discharge home. Did reviewed the chance that the bleeding will likely recur later, since he is on Eliquis. He will hold Eliquis tonight. Precautions for return to the ER reviewed. Would recommend close outpatient follow-up with General surgery to consider operative intervention to remove this bleeding hemorrhoid. It sounds like it has been bleeding off and on for a while, but was more persistent today. Although he is on Eliquis, at this point I do not think he needs to be admitted for hemoglobin monitoring. Likewise would hold off on complete reversal of his Eliquis due to the risk of thrombotic /embolic events. Lab Data Labs: Lab Results 07/07/24 Range/Units 19:38 WBC 7.99 (4.50-11.00) K/uL RBC 4.52 (4.30-5.90) m/uL Hgb 13.8 (13.5-17.5) gm/dL Hct 42.7 (37.0-53.0) % MCV 95 (80-100) fL MCH 31 (26-34) pg MCHC 32 (32-36) gm/dL RDW Coeff of Maximus 12.8 (11.5-15.5) % Plt Count 158 (140-440) K/uL Neut % (Auto) 61.3 (42.0-72.0) % Lymph % (Auto) 25.9 (20-44) % Williams % (Auto) 11.1 H (0.0-11.0) % Eos % (Auto) 1.3 (0.0-7.0) % Baso % (Auto) 0.3 (0.0-3.0) % Neut # (Auto) 4.90 (1.7-7.0) K/uL Lymph # (Auto) 2.07 (0.90-2.90) K/uL Williams # (Auto) 0.90 (0.00-0.90) K/UL Eos # (Auto) 0.10 (0.00-0.50) K/uL Baso # (Auto) 0.02 (0.00-0.30) K/uL Abs Immat Gran (auto) 0.01 (0.00-0.30) K/uL Imm/Tot Granulo (auto) 0.1 % Blood Type O Positive Antibody Screen NEGATIVE Discharge Plan Discharge Clinical Impression: Bleeding hemorrhoid Patient Disposition: Home, Self-Care Condition: Stable Instructions: Sitz Bath (DC) Additional Instructions: As we discussed, we can see the your bleeding is coming from a hemorrhoid. I think that the bleeding from her hemorrhoid is worse than the normal amount of bleeding from a hemorrhoid because of your Eliquis. For tonight and for armando rrow morning do not take your Eliquis. If you have more trouble with bleeding from a hemorrhoid tonight, try to sit down and hold a posted stamp size piece of the Gelfoam gauze and some toilet paper over the bleeding area. Usually with the Gelfoam and direct pressure the bleeding will stop within 5 or 10 minutes. If the bleeding does not stop after 10 minutes or if you have any other concerns such as weakness, dizziness, or symptoms of anemia, return to the ER for re-evaluation In the morning, please call the [facility] at [phone] to schedule and ER follow-up visit with the general surgeons to talk about a surgical procedure to repair or remove your hemorrhoid Prescriptions: No Action levetiracetam [Keppra] 500 mg tablet 500 mg PO BID amiodarone 100 mg tablet 100 mg PO QDAY ascorbic acid (vitamin C) 500 mg tablet 500 mg PO DAILY meclizine 25 mg tablet 25 mg PO TID PRN (Reason: dizziness) Qty: 90 0RF Rx Instructions: one tablet three times daily for vertigo trazodone 50 mg tablet 50 mg PO HS Rx Instructions: one tablet once daily for sleep aide acetaminophen 325 mg tablet 650 mg PO Q6H PRN cholecalciferol (vitamin D3) 125 mcg (5,000 unit) capsule 125 mcg PO DAILY aspirin 81 mg tablet,delayed release (DR/EC) 81 mg PO DAILY ezetimibe 10 mg tablet 10 mg PO HS nitroglycerin 0.4 mg tablet, sublingual 0.4 mg sublingual Q5M PRN Rx Instructions: do not exceed 3 doses per episode pantoprazole 40 mg tablet,delayed release (DR/EC) 40 mg PO DAILY Qty: 90 2RF Rx Instructions: for GERD torsemide 5 mg tablet 10 mg PO DAILY Eliquis 5 mg tablet 5 mg PO BID Qty: 180 0RF Rx Instructions: one tablet twice daily torsemide 5 mg tablet 5 - 10 mg PO QAM Qty: 135 0RF Rx Instructions: take one tablet every other day; the opposite days take 2 tablet ( alternate 5mg and 10mg every other day) carvedilol 6.25 mg tablet 6.25 mg PO BID Qty: 180 0RF Rx Instructions: 1 tablet twice daily must administer with a meal/food rosuvastatin 10 mg tablet 10 mg PO 3XW Qty: 45 3RF Rx Instructions: one tablet, 3 x weekly valsartan 160 mg tablet 160 mg PO BID Qty: 180 1RF Rx Instructions: one tablet twice daily for blood pressure STOP losartan Follow Up/Referrals: Yohana Watkins PA-C [Primary Care Provider] - Stand Alone Forms: The Simple Info Instructions
--- OUTSIDE RECORDS SUMMARY | 2024-07-07 19:38 | XMS_ITS | Clinical Summary ---
Author Organization [facility] Address [place], [place] [address] Care Team Providers Care Sr Risk Management Consultant Name Role Phone BaldwinDonya Jeff Primary Care Provider [phone] Allergies Active Allergy Reactions Criticality Noted Date Comments Amlodipine Hives High 01/13/2021 Iodinated Contrast Media Anaphylaxis,Other - Describe In Comment Field High 05/10/2016 Cardiac arrest during stent placement [id number] Reductase Inhibitors Other - Describe In Comment [...] exists Influenza for age 65+ 03/02/2024 Insurance [employer] MEDICARE PART B HB ONLY Advance Directives Documents on File Type Date Recorded Patient Supervisor Paper Products Expl anation POLST 09/27/2023 Care Teams Sr Risk Management Consultant Relationship Specialty Start Date End Date Donya Baldwin PCP - General Family Practice 07/02/13
--- OUTSIDE RECORDS SUMMARY | 2024-07-07 19:38 | XMS_ITS | Referral Summary ---
Author Organization [place] Address [address] 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
--- OUTSIDE RECORDS SUMMARY | 2024-07-07 19:38 | XMS_ITS | Clinical Summary ---
Author Organization [place] Address [address] [facility] 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 MEDICARE ADVANTAGE Advance Directives For more information, please contact: [phone] * No CPR- Do NOT Intubate (Latest [...] 2:55 PM 04/25/2017 12:11 PM Care Teams Records Management Analyst Relationship Specialty Start Date End Date Yohana Watkins PA-C [facility] [address], [place] [address] PCP - General Physician Clam Shovel Operator 01/13/21
--- OUTSIDE RECORDS SUMMARY | 2024-07-07 19:39 | XMS_ITS | Continuity of Care Document ---
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 For routine questions regarding patient records, call [phone] during business hours, M-F 8:00 AM - 5:00 PM Central Time. Record requests for emergency care only can be directed to [phone] at any time.[facility] Encounters Date Type Department Care Team Description 06/16/2024 8:16 AM WELDING ROD COATER - 06/16/2024 11:59 PM WELDING ROD COATER Hospital Encounter Department of Cardiovascular Diseases in [place], [place] [address] [place] [address] Aaron Galan M.D. Aftercare Cardiac Defibrillator Discharge Disposition: Home or Self Care 06/16/2024 10:00 AM WELDING ROD [employer]ATER Office Visit Department of Cardiovascular Medicine in [place], [place] [address] [place] [address] Arminda Schaeffer M.D. Beat Premature Ventricular (Primary Dx); Presence Cardioverter- Defibrillator (ICD And AICD); Tachycardia Ventricular Nonsustained (HCC); Coronary Artery Disease With Stable Angina (HCC); Aneurysm Coronary Artery 06/12/2024 2:15 PM WELDING ROD COATER Clinical Communication Virtual Review in [place], [place] [address] [place] [address] Pre-visit Intake 05/15/2024 Clinical Communication Department of Cardiovascular Medicine in [place], [place] [address] [place] [address] Neha Gardner M.D. Update on blood pressures and med 05/01/2024 Documentation Department of Cardiovascular Medicine in [place], [place] [address] [place] [address] Neha Gardner M.D. 05/01/2024 Orders Only Department of Cardiovascular Medicine in [place], [place] [address] [place] [address] Neha Gardner M.D. 03/24/2024 4:30 PM CDT Office Visit Department of Cardiovascular Medicine in [place], [place] [address] [place] [address] Kemal Miller M.D. Presence Cardioverter- Defibrillator (ICD And AICD) (Primary Dx) 03/21/2024 Documentation Division of Cardiovascular Diseases in [address] [address] Kemal Miller M.D. 03/21/2024 Clinical Communication Department of Cardiovascular Medicine in [place], [place] [address] [place] [phone] Forging Machine HandPartha M.D. 03/21/2024 7:51 AM CDT - 03/21/2024 11:59 PM CDT Hospital Encounter Department of Cardiovascular Diseases in [place], [place] [address] [place] [address] Wesley Varghese M.D., Ph.D. Discharge Disposition: Home or Self Care 03/20/2024 Orders Only Department of Cardiovascular Medicine in [place], [place] [address] [place] [address] Edna Harris R.N. Aftercare Cardiac Defibrillator (Primary Dx) 03/20/2024 Clinical Communication Department of Cardiovascular Medicine in [address] [address] Kemal Miller M.D. DEVICE REGISTRATION (ICD IMPLANT) 03/20/2024 9:56 AM CDT - 03/20/2024 11:59 PM CDT Hospital Encounter Department of Cardiovascular Diseases in [address] [address] Kemal Miller M.D. Aftercare Cardiac Defibrillator Discharge Disposition: Home or Self Care 03/19/2024 Orders Only Division of Cardiovascular Diseases in [address] [address] Vickie Leavitt R.N. Aftercare Cardiac Defibrillator (Primary Dx) 03/19/2024 12:19 PM CDT Anesthesia Event Division of Cardiovascular Diseases in [address] [address] Edu Escalona APRN, DARIELA, D.N.P. Catrachita Faarh APRN, CRNA, D.N.P. 03/19/2024 12:35 PM CDT - 03/19/2024 4:05 PM CDT Surgery Division of Cardiovascular Diseases in [address] [address] Kemal Miller M.D. DIAGNOSTIC EPS 03/19/2024 10:38 AM CDT - 03/19/2024 6:30 PM CDT Hospital Encounter Division of Cardiovascular Diseases in [address] [address] Kemal Miller M.D. Tachycardia Ventricular Nonsustained (HCC) Discharge Disposition: Home or Self Care 03/18/2024 3:00 PM CDT Office Visit Department of Cardiovascular Medicine in [place], [place] [address] [place] [address] Neha Gardner M.D. Tachycardia Ventricular Nonsustained (HCC) (Primary Dx); Coronary Artery Disease With Stable Angina (HCC); Hyperlipidemia 03/18/2024 8:18 AM CDT - 03/18/2024 10:23 AM CDT Hospital Encounter Department of Cardiovascular Diseases in [place], [place] [address] [place] [address] Kemal Miller M.D. Tachycardia Ventricular Nonsustained (HCC) Discharge Disposition: Home or Self Care 03/18/2024 11:57 AM CDT - 03/18/2024 11:59 PM CDT Hospital Encounter Department of Radiology, [facility] in [place], [place] [address] [place] [address] Kemal Miller M.D. Tachycardia Ventricular Nonsustained (HCC) Discharge Disposition: Home or Self Care 03/18/2024 10:24 AM CDT - 03/18/2024 11:56 AM CDT Hospital Encounter Department of Laboratory Medicine and Pathology, [facility] in [place], [place] [address] [place] [address] Kemal Miller M.D. Tachycardia Ventricular Nonsustained (HCC) Discharge Disposition: Home or Self Care 03/18/2024 1:00 PM CDT Office Visit Department of Cardiovascular Medicine in [place], [place] [address] [place] [address] Katie Harvey APRN, C.N.P. Tachycardia Ventricular Nonsustained [...] Clinical Communication Department of Cardiovascular Medicine in [place], [place] [address] [place] [address] Neha Gardner M.D. Ablation Questions 02/14/2024 Clinical Communication Department of Cardiovascular Medicine in [place], [place] [address] [place] [phone] Neha Gardner M.D. Follow-up (Labs today) 02/08/2024 Clinical Communication Department of Cardiovascular Medicine in [place], [place] [address] [place] [address] Neha Gardner M.D. Blood Pressure (Blood pressure log) 01/18/2024 Clinical Communication Department of Cardiovascular Medicine in [place], [place] [address] [place] [address] Neha Gardner M.D. Follow-up 01/15/2024 4:26 PM CDT - 01/15/2024 11:59 PM CDT Hospital Encounter Department of Laboratory Medicine and Pathology, [facility] in [place], [place] [address] [place] [address] Neha Gardner M.D. Ectopy Ventricular Discharge Disposition: Home or Self Care 01/15/2024 3:00 PM CDT Office Visit Department of Cardiovascular Medicine in [place], [place] [address] [place] [address] Neha Gardner M.D. 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 Med Question 01/07/2024 Orders Only Department of Cardiovascular Medicine in [place], [place] [address] [place] [address] Neha Gardner M.D. Tachycardia Ventricular Nonsustained (HCC) (Primary Dx); Coronary Artery Disease With Stable Angina (HCC) 01/01/2024 Clinical Communication Department of Cardiovascular Medicine in [place], [place] [address] [place] [address] Vida Guido, RSashaNSasha 01/01/2024 Documentation Division of Cardiovascular Diseases in [address] [address] Kemal Miller M.D. 01/01/2024 Orders Only Division of Cardiovascular Diseases in [place], [place] [address] [place] [address] Kemal Miller M.D. 12/31/2023 Clinical Communication Department of Cardiovascular Medicine in [place], [place] [address] [place] [address] Neha Gardner M.D. EP study +/- ICD implantation still on? 12/19/2023 Clinical Communication Department of Cardiovascular Medicine in [place], [place] [address] [place] [address] Neha Gardner M.D. Follow-up 12/18/2023 2:00 PM CDT Office Visit Department of Cardiovascular Medicine in [place], [place] [address] [place] [address] Neha Gardner M.D. Ectopy Ventricular (Primary Dx); Tachycardia Ventricular Nonsustained (HCC); Hyperlipidemia; Aneurysm Coronary Artery; 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 Failure (HCC) 12/18/2023 11:51 AM CDT - 12/18/2023 11:59 PM CDT Hospital Encounter Department of Cardiovascular Diseases in [place], [place] [address] [place] [address] Kemal Miller M.D. Tachycardia Ventricular Nonsustained (HCC) Discharge Disposition: Home or Self Care 12/04/2023 Clinical Communication Department of Cardiovascular Medicine in [place], [place] [address] [place] [address] Neha Gardner M.D. Follow-up 11/08/2023 Clinical Communication Department of Cardiovascular Medicine in [place], [place] [address] [place] [address] Neha Gardner M.D. Med Question 11/07/2023 Clinical Communication Department of Cardiovascular Medicine in [place], [place] [address] [place] [phone] Forging Machine HandPartha M.D. 10/09/2023 Clinical Communication Department of Cardiovascular Medicine in [place], [place] [address] [place] [address] Jolanta Carranza R.N. 09/26/2023 10:00 AM CDT Virtual Visit Department of Cardiovascular Medicine in [place], [place] [address] [place] [address] Neha Gardner M.D. 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 Coronary Artery Disease With Stable Angina (HCC) (Primary Dx) 08/30/2023 Clinical Communication Department of Cardiovascular Medicine in [place], [place] [address] [place] [phone] Arminda Schaeffer M.D. After Visit Question (EP study) 08/09/2023 9:00 AM WELDING ROD COATER Comprehensive Visit Department of Cardiovascular Medicine in [place], [place] [address] [place] [address] Kemal Miller M.D. Tachycardia Ventricular Nonsustained (HCC) (Primary Dx); Ectopy Ventricular; Cardiomyopathy Ischemic; Coronary Artery Disease With Stable Angina (HCC) 07/06/2023 10:50 AM WELDING ROD COATER - 07/06/2023 11:04 AM WELDING ROD COATER Hospital Encounter Department of Laboratory Medicine and Pathology, [facility] in [place], [place] [address] [place] [address] Neha Gardner M.D. Ectopy Ventricular; Cardiomyopathy Ischemic; Coronary Artery Disease With Stable Angina (HCC) Discharge Disposition: Home or Self Care 07/06/2023 12:46 PM WELDING ROD COATER - 07/06/2023 11:59 PM WELDING ROD COATER Hospital Encounter Department of Cardiovascular Diseases in [place], [place] [address] [place] [address] Neha Gardner M.D. Ectopy Ventricular; Cardiomyopathy Ischemic; Coronary Artery Disease With Stable Angina (HCC) Discharge Disposition: Home or Self Care 07/06/2023 11:05 AM WELDING ROD COATER - 07/06/2023 12:45 PM WELDING ROD COATER Hospital Encounter Department of Radiology, [address] [address] Neha Gardner M.D. Ectopy Ventricular; Cardiomyopathy Ischemic; Coronary Artery Disease With Stable Angina (HCC) Discharge Disposition: Home or Self Care 06/15/2023 Refill Department of Cardiovascular Medicine in [address] [address] Neha Gardner M.D. Med Refill 06/15/2023 Clinical Communication Department of Cardiovascular Medicine in [address] [address] Forging Machine HandPartha M.D. Int cons (Int cons/Evaluate for VT ablation) 06/15/2023 8:14 AM WELDING ROD COATER - 06/15/2023 9:49 AM WELDING ROD COATER Hospital Encounter Department of Laboratory Medicine and Pathology, [address] [address] Neha Gardner M.D. Coronary Artery Disease With Stable Angina (HCC); Ectopy Ventricular; 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 Failure (HCC); Hyperlipidemia Discharge Disposition: Home or Self Care 06/15/2023 9:50 AM WELDING ROD COATER - 06/15/2023 11:59 PM WELDING ROD COATER Hospital Encounter Department of Radiology, [facility] in [address] [address] Neha Gardner M.D. Coronary Artery Disease With Stable Angina (HCC); Ectopy Ventricular; 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 Failure (HCC); Hyperlipidemia Discharge Disposition: Home or Self Care 06/15/2023 1:00 PM WELDING ROD COATER Office Visit Department of Cardiovascular Medicine [address] [address] Neha Gardner M.D. Ectopy Ventricular (Primary Dx); Cardiomyopathy Ischemic; Coronary Artery Disease With Stable Angina (HCC); Aneurysm Coronary Artery; Hyperlipidemia 06/14/2023 9:15 AM WELDING ROD COATER Clinical Communication Virtual Review in [place], [place] [address] [place] [address] Pre-visit Intake 05/30/2023 9:00 AM WELDING ROD COATER Virtual Visit Department of Cardiovascular Medicine in [place], [place] [address] [place] [address] Neha Gardner M.D. Coronary Artery Disease With Stable Angina (HCC) (Primary Dx); Ectopy Ventricular; 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 Failure (HCC); Hyperlipidemia 05/29/2023 Orders Only Department of Cardiovascular Medicine in [place], [place] [address] [place] [address] Neha Gardner M.D. Ectopy Ventricular (Primary Dx) 05/28/2023 Clinical Communication Department of Cardiovascular Medicine in [address] [address] Neha Gardner M.D. Notification criteria 05/23/2023 Orders Only Department of Cardiovascular Medicine in [address] [address] Manpreet Lanier M.D. 05/23/2023 12:49 PM WELDING ROD COATER - 05/23/2023 11:59 PM WELDING ROD COATER Hospital Encounter Department of Cardiovascular Diseases in [address] [address] Neha Gardner M.D. Coronary Artery Disease With Stable Angina (HCC); Ectopy Ventricular; 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 Failure (HCC); Hyperlipidemia Discharge Disposition: Home or Self Care 05/23/2023 12:13 PM WELDING ROD COATER - 05/23/2023 12:48 PM WELDING ROD COATER Hospital Encounter Department of Laboratory Medicine and Pathology, [facility] in [address] [address] Neha Gardner M.D. Coronary Artery Disease With Stable Angina (HCC); Ectopy Ventricular; 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 Failure (HCC); Hyperlipidemia Discharge Disposition: Home or Self Care 05/23/2023 11:17 AM WELDING ROD COATER - 05/23/2023 12:12 PM WELDING ROD COATER Hospital Encounter Department of Cardiovascular Diseases in [place], [place] [address] [place] [address] Neha Gardner M.D. Coronary Artery Disease With Stable Angina (HCC); Ectopy Ventricular; 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 Failure (HCC); Hyperlipidemia Discharge Disposition: Home or Self Care 04/11/2023 Clinical Communication Department of Cardiovascular Medicine in [place], [place] [address] [place] [address] Neha Gardner M.D. Echo 08/07/2022 8:50 AM WELDING ROD COATER - 08/07/2022 11:59 PM WELDING ROD COATER Hospital Encounter Department of Laboratory Medicine and Pathology, [place], [place] [address] [place] [address] Neha Gardner M.D. Coronary Artery Disease With Stable Angina (HCC) Discharge Disposition: Home or Self Care 08/05/2022 Orders Only Department of Cardiovascular Medicine in [address] [address] Neha Gardner M.D. Coronary Artery Disease With Stable Angina (HCC) (Primary Dx) 06/28/2022 Episode Changes Department of Cardiovascular Medicine in [address] [address] Donna Swift 06/23/2022 8:30 AM WELDING ROD COATER Office Visit Department of Cardiovascular Medicine in [place], [place] [address] [place] [address] Neha Gardner M.D. Coronary Artery Disease With Stable Angina (HCC) (Primary Dx); Ectopy Ventricular; 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 Failure (HCC); Hyperlipidemia 06/09/2022 11:15 AM WELDING ROD COATER - 06/09/2022 11:53 AM WELDING ROD COATER Hospital Encounter Department of Laboratory Medicine and Pathology, [place], [place] [address] [place] [address] Neha Gardner M.D. Cardiomyopathy Ischemic; Coronary Artery Disease With Stable Angina (HCC); Aneurysm Coronary Artery; Ectopy Ventricular; Hyperlipidemia Discharge Disposition: Home or Self Care 06/09/2022 2:34 PM WELDING ROD COATER - 06/09/2022 11:59 PM WELDING ROD COATER Hospital Encounter Department of Cardiovascular Diseases in [place], [place] [address] [place] [address] Neha Gardner M.D. Cardiomyopathy Ischemic; Coronary Artery Disease With Stable Angina (HCC); Aneurysm Coronary Artery; Ectopy Ventricular; Hyperlipidemia Discharge Disposition: Home or Self Care 06/09/2022 11:54 AM WELDING ROD COATER - 06/09/2022 2:33 PM WELDING ROD COATER Hospital Encounter Department of Cardiovascular Diseases in [place], [place] [address] [place] [address] Neha Gardner M.D. Cardiomyopathy Ischemic; Coronary Artery Disease With Stable Angina (HCC); Aneurysm Coronary Artery; Ectopy Ventricular; Hyperlipidemia Discharge Disposition: Home or Self Care 06/08/2022 9:45 AM WELDING ROD COATER Clinical Communication Virtual Review in [place], [place] [address] [place] [address] Pre-visit Intake 05/29/2022 Clinical Communication Department of Cardiovascular Medicine in [place], [place] [address] [place] [phone] Forging Machine HandPartha M.D. 05/22/2022 8:15 AM WELDING ROD COATER Clinical Communication Virtual Review in [address] [address] 05/05/2022 Orders Only Department of Cardiovascular Medicine in [place], [place] [address] [place] [address] Neha Gardner M.D. Cardiomyopathy Ischemic (Primary Dx); Coronary Artery Disease With Stable Angina (HCC); Aneurysm Coronary Artery; Ectopy Ventricular; Hyperlipidemia 05/04/2022 Clinical Communication Department of Cardiovascular Medicine in [place], [place] [address] [place] [address] Neha Gardner M.D. Follow-up 04/04/[address] [address] Yohana Watkins P.A. 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 (HCC) (Primary Dx); Abdominal Aortic Aneurysm Without Rupture Unspecified (HCC); Aneurysm Coronary Artery 08/26/2021 Refill Department of Cardiovascular Medicine in [place], [place] [address] [place] [address] Neha Gardner M.D. Med Refill 08/14/2021 Refill Department of Cardiovascular Medicine in [place], [place] [address] [place] [address] Neha Gardner M.D. Med Refill 08/01/2021 Remote Monitoring Remote Patient Monitoring [facility] [address] [place] [address] Makenzie Meeks Complex Care Coordination (July Bill ) 07/15/2021 Remote Monitoring Remote Patient Monitoring [facility] [address] [place] [address] Makenzie Meeks Graduation (Patient graduated from the Remote Monitoring program. ) 07/15/2021 Remote Monitoring Remote Patient Monitoring [facility] [address] [place] [address] Kathryn Avitia, R.N. COVID-19 Remote Patient Monitoring; Graduation 07/14/2021 Remote Monitoring Remote Patient Monitoring [facility] [address] [place] [address] Karen Maxwell, R.N. COVID-19 Remote Patient Monitoring; Symptom Assessment 07/14/2021 Remote Monitoring Remote Patient Monitoring [facility] [address] [place] [address] Mabel Brambila, M.S.N., R.N. COVID-19 Remote Patient Monitoring; Symptom Assessment 07/13/2021 Remote Monitoring Remote Patient Monitoring [facility] [address] [place] [address] Joo Mckeon, R.N., C.M.S.R.N., [facility] COVID-19 Remote Patient Monitoring; Symptom Assessment 07/10/2021 Refill Department of Cardiovascular Medicine in [place], [place] [address] [place] [address] Neha Gardner M.D. Med Refill 07/07/2021 Remote Monitoring Remote Patient Monitoring [facility] [address] [place] [address] Megan Clinton Welcome Call (Welcome call completed (company laborer), equipment ordered before 1 pm today, scheduled to arrive 07/08); Patient Education (Complex Care/COVID19, welcome letter, and terms of service sent 07/07) 07/07/2021 Episode Changes Remote Patient Monitoring [facility] [address] [place] [address] Megan Clinton Nereyda 07/07/2021 Remote Monitoring Remote Patient Monitoring [facility] [address] [place] [address] Karen Maxwell, RSashaN. COVID-19 Remote Patient Monitoring; Intake Assessment 07/06/2021 Episode Changes Remote Patient Monitoring [facility] [address] [place] [address] Kalee Hilton R.N. 07/06/2021 Clinical Communication Division of Count Includes [facility] Internal Medicine, [place], [place] [address] [place] [address] Fabian Mckinney M.S., R.N. Results ([facility]) 07/05/2021 External Outreach Department of Family Medicine in [place], [place] [address] [place] [address] Tana Brunner M.D. Contact With And (Suspected) Exposure To COVID-19 (Primary Dx) Discharge Disposition: Home or Self Care 07/05/2021 2:40 PM WELDING ROD COATER Admin Visit Urgent Care, [facility], in [place], [place] [address] [place] [address] 07/04/2021 Clinical Communication Division of Count Includes [facility] Internal Medicine, [place], [place] [address] [place] [address] Marciano Kelly R.N. 03/29/2021 Orders Only [facility] Yohana Chavez M.D. 03/22/2021 9:00 AM CDT Ancillary Procedure Department of Radiology in [place], [place] [address] [place] [address] Lauren Portillo M.D. Stroke Cerebrovascular Accident Personal History 03/22/2021 9:00 AM CDT Ancillary Procedure Department of Radiology in [place], [place] [address] [place] [address] Lauren Portillo M.D. Stroke Cerebrovascular Accident Personal History 03/22/2021 11:30 AM CDT Comprehensive Visit Department of Neurology in [place], [place] [address] [place] [address] Lauren Portillo M.D. Cerebrovascular Disease (Primary Dx); Spells Neurological (HCC) 03/21/2021 9:40 AM CDT Clinical Communication Virtual Review in [place], [place] [address] [place] [address] Neha Gardner M.D. Pre-visit Intake 01/19/[address] [address] Yohana Watkins P.A. Stroke (HCC) (Primary Dx) 01/07/2021 Documentation Department of Cardiovascular Medicine in [place], [place] [address] [place] [address] Neha Gardner M.D. 01/07/2021 Orders Only Department of Cardiovascular Medicine in [place], [place] [address] [place] [address] Neha Gardner M.D. Stroke (HCC) (Primary Dx) 07/12/2020 Refill Department of Cardiovascular Medicine in [place], [place] [address] [place] [address] Neha Gardner M.D. Med Refill 06/16/2020 4:00 PM WELDING [employer] Office Visit Department of Cardiovascular Medicine in [address] [address] Neha Gardner M.D. 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, in [place], [place] [address] [place] [address] Neha Gardner M.D. Beat Premature Ventricular; Cardiomyopathy Ischemic; Coronary Artery Disease With Stable Angina (HCC); Hyperlipidemia Discharge Disposition: Home or Self Care 06/16/2020 11:43 AM WELDING ROD COATER - 06/16/2020 11:59 PM WELDING [employer] Hospital Encounter Department of Cardiovascular Diseases in [place], [place] [address] [place] [address] Neha Gardner M.D. Beat Premature Ventricular; Cardiomyopathy Ischemic; Coronary Artery Disease With Stable Angina (HCC); Hyperlipidemia Discharge Disposition: Home or Self Care 06/14/2020 Orders Only Department of Cardiovascular Medicine in [place], [place] [address] [place] [phone] Neha Gardner M.D. Cardiomyopathy Ischemic (Primary Dx); Beat Premature Ventricular; Coronary Artery Disease With Stable Angina (HCC); Hyperlipidemia 06/11/2020 Orders Only Department of Cardiovascular Medicine in [address] [phone] Neha Gardner M.D. 02/09/2020 Refill Department of Cardiovascular Medicine in [address] [address] Neha Gardner M.D. Med Refill 12/09/2019 Clinical Communication Department of Cardiovascular Medicine in [address] [address] Neha Gardner M.D. Med Question (Communication) 08/26/2019 Refill Department of Cardiovascular Medicine in [address] [address] Neha Gardner M.D. Med Refill; Med Refill 08/14/2019 Refill Department of Cardiovascular Medicine in [place], [place] [address] [place] [phone] Neha Gardner M.D. Med Refill 08/12/2019 Clinical Communication Department of Cardiovascular Medicine in [address] [phone] Neha Gardner M.D. Results 08/07/2019 Clinical Communication Department of Cardiovascular Medicine in [address] [phone] Neha Gardner M.D. New Medication Clarification 07/30/2019 Clinical Communication Department of Cardiovascular Diseases in [place], [place] [address] [place] [phone] Gisela Galdamez CRAT 07/21/2019 9:19 AM WELDING ROD COATER - 07/21/2019 11:59 PM WELDING ROD COATER Hospital Encounter Department of Cardiovascular Diseases in [place], [place] [address] [place] [address] Neha Gardner M.D. Failure Heart (HCC); Beat Premature Ventricular; Cardiomyopathy Ischemic Discharge Disposition: Home or Self Care 07/09/2019 Orders Only Department of Cardiovascular Medicine in [place], [place] [address] [place] [phone] Neha Gardner M.D. Cardiomyopathy Ischemic (Primary Dx) 07/08/2019 2:00 PM WELDING ROD COATER Comprehensive Visit Department of Cardiovascular Medicine in [place], [place] [address] [place] [phone] Neha Gardner M.D. 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 Cardiomyopathy Ischemic; Failure Heart (HCC); Chronic Kidney Disease Stage 3 Glomerular Filtration Rate 30 To 59; Hyperlipidemia; Aneurysm Coronary Artery; Coronary Artery Disease With Stable Angina (HCC) Discharge Disposition: Home or Self Care 07/08/2019 10:20 AM WELDING ROD COATER - 07/08/2019 11:59 PM WELDING ROD COATER Hospital Encounter Department of Laboratory Medicine and Pathology, [facility] in [place], [place] [address] [place] [address] Neha Gardner M.D. Cardiomyopathy Ischemic; Failure Heart (HCC); Chronic Kidney Disease Stage 3 Glomerular Filtration Rate 30 To 59; Hyperlipidemia; Aneurysm Coronary Artery; Coronary Artery Disease With Stable Angina (HCC) Discharge Disposition: Home or Self Care 07/04/2019 Clinical Communication Department of Cardiovascular Medicine in [place], [place] [address] [place] [phone] Neha Gardner M.D. 06/26/2019 Clinical Communication Department of Cardiovascular Medicine in [place], [place] [address] [place] [phone] Neha Gardner M.D. 06/03/2019 Clinical Communication Department of Cardiovascular Medicine in [place], [place] [address] [place] [phone] Neha Gardner M.D. Appointment 01/21/2019 4:00 PM CDT Office Visit Department of Cardiovascular Medicine in [address] [phone] Neha Gardner M.D. Cardiomyopathy Ischemic (Primary Dx); Failure Heart (HCC); Chronic Kidney Disease Stage 3 Glomerular Filtration Rate 30 To 59; Hyperlipidemia; Aneurysm Coronary Artery; Coronary Artery Disease With Stable Angina (HCC) 01/21/2019 1:14 PM CDT - 01/21/2019 11:59 PM CDT Hospital Encounter Department of Cardiovascular Diseases in [address] [phone] Neha Gardner M.D. Coronary Artery Disease (Unspecified); Cardiomyopathy Ischemic; Pain Chest; Dyspnea On Exertion; Snoring; Apnea Sleep Obstructive Discharge Disposition: Home or Self Care 01/07/2019 8:44 AM CDT - 01/07/2019 12:18 PM CDT Hospital Encounter Department of Radiology, [facility], in [place], [place] [address] [place] [phone] Neha Gardner M.D. Coronary Artery Disease (Unspecified); Cardiomyopathy Ischemic; Pain Chest; Dyspnea On Exertion; Snoring; Apnea Sleep Obstructive Discharge Disposition: Home or Self Care 01/07/2019 12:19 PM CDT - 01/07/2019 11:59 PM CDT Hospital Encounter Department of Radiology, [facility], in [place], [place] [address] [place] [phone] Neha Gardner M.D. Coronary Artery Disease (Unspecified); Cardiomyopathy Ischemic; Pain Chest; Dyspnea On Exertion; Snoring; Apnea Sleep Obstructive Discharge Disposition: Home or Self Care 12/31/2018 7:20 AM CDT - 12/31/2018 11:59 PM CDT Hospital Encounter Department of Radiology, [facility] in [place], [place] [address] [place] [address] Neha Gardner M.D. Coronary Artery Disease (Unspecified); Hyperlipidemia; Fatigue; Impaired Fasting Glucose; Cardiomyopathy Ischemic Discharge Disposition: Home or Self Care 12/31/2018 6:50 AM CDT - 12/31/2018 7:19 AM CDT Hospital Encounter Department of Laboratory Medicine and Pathology, [facility] in [place], [place] [address] [place] [phone] Neha Gardner M.D. Coronary Artery Disease (Unspecified); Hyperlipidemia; Fatigue; Impaired Fasting Glucose; Cardiomyopathy Ischemic Discharge Disposition: Home or Self Care 12/31/2018 9:30 AM CDT Office Visit Department of Cardiovascular Medicine in [place], [place] [address] [place] [phone] Neha Gardner M.D. Coronary Artery Disease (Unspecified) [...] Hospital Encounter Department of Cardiovascular Diseases in [place], [place] [address] [place] [address] Neha Gardner M.D. Coronary Artery Disease (Unspecified); Hyperlipidemia; Fatigue; Impaired Fasting Glucose; Cardiomyopathy Ischemic Discharge Disposition: Home or Self Care 12/16/2018 Orders Only Department of Cardiovascular Medicine in [place], [place] [address] [place] [phone] Neha Gardner M.D. Coronary Artery Disease (Unspecified) (Primary Dx); Hyperlipidemia; Fatigue; Impaired Fasting Glucose; Cardiomyopathy Ischemic 12/13/2018 Clinical Communication Department of Cardiovascular Medicine in [place], [place] [address] [place] [address] Neha Gardner M.D. Appointment 06/14/2018 Refill Department of Cardiovascular Medicine in [place], [place] [address] [place] [address] Neha Gardner M.D. Med Refill 06/04/2017 6:13 AM WELDING ROD COATER - 06/12/2017 1:56 PM WELDING ROD COATER Hospital Encounter HX RST LEONOR FORDE 5C 06/04/2017 5:10 AM WELDING ROD COATER - 06/04/2017 11:59 PM WELDING ROD COATER Hospital Encounter HX NO MAPPING Natasha Duarte 06/04/2017 7:50 AM WELDING ROD COATER Telemedicine Department of Anesthesiology 06/01/2017 - 06/01/2017 11:59 PM WELDING ROD [employer]ATER Hospital Encounter HX NO MAPPING Provider, Historical 05/08/2017 - 05/08/2017 11:59 PM WELDING ROD COATER Hospital Encounter HX NO MAPPING Provider, Historical 05/08/2017 3:16 PM WELDING ROD COATER - 05/08/2017 11:59 PM WELDING ROD COATER Hospital Encounter HX [facility] [...] placement Amlodipine Hives (Reselect Reaction) High 01/13/2021 Hphmfyk-Mrj-Qog Reductase Inhibitors Other (see comments) Medium 01/03/2022 [...] Father Casey Speiker Alive Mother Afshan Salas (Gerald) Speiker Alive Paternal Grandfather Isra Duarte Alive [...] often do you attend chur ch or jainism services? 1 to 4 times per year 03/18/2021 Do you belong to any clubs o r organizations such as gnosticist groups, unions, fraternal or athletic groups, or [...] and heating? Not hard at all 05/29/2023 [facility] of Occupat ional Health - Occupational Stress [...] your living situation today? [facility] 05/29/2023 Education Answer Date Recorded What is the highest level of school you have completed or the highest degree you have received? 12th grade 03/18/2021 Sex and Gender Information Value Date Recorded Sex Assigned at Male 03/18/2021 9:25 AM CDT Legal Sex Male 6:03 AM WELDING ROD COATER Gender Identity Male 12/20/2017 11:12 AM CDT Sexual Orientation Straight 12/20/2017 11 :12 AM CDT Last Filed Vital Signs Vital Sign Reading Time Taken Comments Blood Pressure 144/90 06/16/2024 9:51 AM WELDING ROD COATER Pulse 70 06/16/2024 9:51 AM WELDING ROD COATER Temperature 36.8 C (98.2 F) 03/24/2024 5:10 PM CDT Respiratory Rate 21 06/12/2017 1:15 PM WELDING ROD COATER Value from [employer]. Oxygen Saturation 96% 03/24/2024 5:1 0 PM CDT Inhaled Oxygen Concentration - - Weight 89.7 kg (197 lb 10.3 oz) 06/16/2024 9:51 AM WELDING ROD COATER Height 165.9 cm (5' 5.32) 06/16/2024 9 :51 AM WELDING ROD COATER Body Mass Index 32.57 06/16/2024 9:51 AM WELDING ROD COATER Plan of Treatment Not on file Medical Devices Implanted Type Area Advertising Assistant Device Identifier Shelf Expiration Date Model / Serial / Lot Conversions - Default Historical Implant Device Implanted:Qty: 2 on 01/14/2016 Ankle Implant Right: Ankle Description:Body Location - Ankle R. Device Status Text - Ankle Imp. Lead Rl4f Defib Biplr 59 - [id number] - [id number] Implanted:Qty: 1 on 03/19/2024 by Kemal Miller M.D. at [facility] Cardiac Lead N/A: Heart [employer] 01/29/2026 [id number] / [id number] / Lead Ppm Ingevity+ Biplr 52 - [id number] - [id number] Implanted:Qty: 1 on 03/19/2024 by Kemal Milelr M.D. at [facility] Cardiac Lead N/A: Heart [employer] 01/29/2026 [id number] / [id number] / Variax-Screw Lock Cross Pin 2.3x 8 - Renee [id number] Implanted:Qty: 2 on 01/14/2016 Hardware e.g. pins/screws/rods Polina Description:Device Manufactu rer - Polina Quynh.. Device Status Text - [id number]. Trimed-Screw Andrés. 3.5mm X 35mm - Renee [id number] Implanted:Qty: 1 on 01/14/2016 Hardware e.g. pins/screws/rods [employer] Description:Device Manufactu rer - [employer].. Device Status Text - [id number]. Variax-Screw Lock Cross Pin 2.3x13 - Renee [id number] Implanted:Qty: 1 on 01/14/2016 Hardware e.g. pins/screws/rods Benson Description:Device Manufactu rer - Polina Quynh.. Device Status Text - HARDWARE-967072. Variax-Screw Lock Cross Pin 2.3x11 - Renee [id number] Implanted:Qty: 1 on 01/14/2016 Hardware e.g. pins/screws/rods Polina Description:Device Manufactu rer - Benson Quynh.. Device Status Text - HARDWARE-51061. Variax-Plate 2.3mm Profyle T Ji 6ho - Renee [id number] Implanted:Qty: 1 on 01/14/2016 Hardware e.g. pins/screws/rods Polina Description:Device Manufactu rer - Benson Quynh.. Device Status Text - HARDWARE-219261. Icd Rsn Dr 0.99x5.37x7.38 - [id number] - [id number] Implanted:Qty: 1 on 03/19/2024 by Kemal Miller M.D. at [facility] Implant Cardiac Defibrillator Left: Chest [employer] 02/13/2026 [id number] / [id number] / Conversions - Default Historical Implant Device [...] INTERROGATION WITH PROGRAMMING Routine 06/16/2024 8:47 AM WELDING ROD COATER Aftercare Cardiac Defibrillator INTERFACED REMOTE DEVICE CHECK [...] Angina (HCC) HOLTER MONITOR - IN CLINIC TILE SORTER Routine 12/18/2023 12:08 PM CDT Tachycardia Ventricular Nonsustained (HCC) OUTSIDE MR NEURO Routine 09/19/2023 2:[address] NEURO Routine 09/19/2023 9:[address] NEURO Routine 09/19/2023 9:50 AM CDT OUTSIDE OTHER Routine 09/19/2023 9:45 AM CDT OUTSIDE US CARD Routine 09/19/2023 12:00 AM CDT HOLTER MONITOR - IN CLINIC TILE SORTER Routine 07/07/2023 3:08 PM WELDING ROD COATER Ectopy Ventricular Cardiomyopathy Ischemic Coronary Artery Disease With Stable Angina (HCC) MR CARDIAC WITHOUT AND WITH IV CONTRAST RAD - Routine (most inpatients and all outpatients) 07/06/2023 12:32 PM WELDING ROD COATER Ectopy Ventricular Cardiomyopathy Ischemic Coronary Artery Disease With Stable Angina (HCC) ALANINE AMINOTRANSFERASE (ALT), S/P Routine 07/06/2023 10:59 AM WELDING ROD COATER Ectopy Ventricular Cardiomyopathy Ischemic Coronary Artery Disease With Stable Angina (HCC) LIPID PANEL, S Routine 07/06/2023 10:59 AM WELDING ROD COATER Ectopy Ventricular Cardiomyopathy Ischemic Coronary Artery Disease With Stable Angina (HCC) PULMONARY FUNCTION TESTS Routine 06/15/2023 10:28 AM WELDING ROD COATER Coronary Artery Disease With Stable Angina (HCC) Ectopy Ventricular 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 Failure (HCC) Hyperlipidemia DX CHEST AP OR PA AND LATERAL 2 VIEWS RAD - Routine (most inpatients and all outpatients) 06/15/2023 9:58 AM WELDING ROD COATER Coronary Artery Disease With Stable Angina (HCC) Ectopy Ventricular 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 Failure (HCC) Hyperlipidemia ECG Routine 06/15/2023 8:48 AM WELDING ROD COATER Coronary Artery Disease With Stable Angina (HCC) Ectopy Ventricular 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 Failure (HCC) Hyperlipidemia THYROID FUNCTION CASCADE, S Routine 06/15/2023 8:28 AM WELDING ROD COATER Coronary Artery Disease With Stable Angina (HCC) Ectopy Ventricular 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 Failure (HCC) Hyperlipidemia MAGNESIUM, S Routine 06/15/2023 8:28 AM WELDING ROD COATER Coronary Artery Disease With Stable Angina (HCC) Ectopy Ventricular 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 Failure (HCC) Hyperlipidemia PROTHROMBIN TIME (PT), P Routine 06/15/2023 8:27 AM WELDING ROD COATER Coronary Artery Disease With Stable Angina (HCC) Ectopy Ventricular 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 Failure (HCC) Hyperlipidemia HOLTER MONITOR - IN CLINIC TILE SORTER Routine 05/24/2023 10:55 AM WELDING ROD COATER Coronary Artery Disease With Stable Angina (HCC) Ectopy Ventricular 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 Failure (HCC) Hyperlipidemia (TTE) 2D ECHO DOPPLER COLOR Routine 05/23/2023 1:44 PM WELDING ROD COATER Coronary Artery Disease With Stable Angina (HCC) Ectopy Ventricular 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 Failure (HCC) Hyperlipidemia CBC WITHOUT DIFFERENTIAL, B Routine 05/23/2023 12:26 PM WELDING ROD COATER Coronary Artery Disease With Stable Angina (HCC) Ectopy Ventricular 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 Failure (HCC) Hyperlipidemia LIPID PANEL, S Routine 05/23/2023 12:26 PM WELDING ROD COATER Coronary Artery Disease With Stable Angina (HCC) Ectopy Ventricular 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 Failure (HCC) Hyperlipidemia COMPREHENSIVE METABOLIC PANEL, S/P Routine 05/23/2023 12:26 PM WELDING ROD COATER Coronary Artery Disease With Stable Angina (HCC) Ectopy Ventricular 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 Failure (HCC) Hyperlipidemia HEMOGLOBIN A1C, B Routine 05/23/2023 12:26 PM WELDING ROD COATER Coronary Artery Disease With Stable Angina (HCC) Ectopy Ventricular 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 Failure (HCC) Hyperlipidemia NT-PRO B-TYPE NATRIURETIC PEPTIDE (BNP), S Routine 05/23/2023 12:26 PM WELDING ROD COATER Coronary Artery Disease With Stable Angina (HCC) Ectopy Ventricular 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 Failure (HCC) Hyperlipidemia BASIC METABOLIC PANEL, S/P Routine 08/07/2022 9:47 AM WELDING ROD COATER Coronary Artery Disease With Stable Angina (HCC) HOLTER MONITOR - IN CLINIC TILE SORTER Routine 06/10/2022 12:51 PM WELDING ROD COATER Cardiomyopathy Ischemic Coronary Artery Disease With Stable Angina (HCC) Aneurysm Coronary Artery Ectopy Ventricular Hyperlipidemia (TTE) 2D ECHO DOPPLER COLOR AND CONTRAST Routine 06/09/2022 4:08 PM WELDING ROD COATER Cardiomyopathy Ischemic Coronary Artery Disease With Stable Angina (HCC) Aneurysm Coronary Artery Ectopy Ventricular Hyperlipidemia ECG Routine 06/09/2022 11:50 AM WELDING ROD COATER Cardiomyopathy Ischemic Coronary Artery Disease With Stable Angina (HCC) Aneurysm Coronary Artery Ectopy Ventricular Hyperlipidemia CBC WITH DIFFERENTIAL, B Routine 06/09/2022 11:37 AM WELDING ROD COATER Cardiomyopathy Ischemic Coronary Artery Disease With Stable Angina (HCC) Aneurysm Coronary Artery Ectopy Ventricular Hyperlipidemia COMPREHENSIVE METABOLIC PANEL, S/P Routine 06/09/2022 11:37 AM WELDING ROD COATER Cardiomyopathy Ischemic Coronary Artery Disease With Stable Angina (HCC) Aneurysm Coronary Artery Ectopy Ventricular Hyperlipidemia HEMOGLOBIN A1C, B Routine 06/09/2022 11:37 AM WELDING ROD COATER Cardiomyopathy Ischemic Coronary Artery Disease With Stable Angina (HCC) Aneurysm Coronary Artery Ectopy Ventricular Hyperlipidemia MAGNESIUM, S Routine 06/09/2022 11:37 AM WELDING ROD COATER Cardiomyopathy Ischemic Coronary Artery Disease With Stable Angina (HCC) Aneurysm Coronary Artery Ectopy Ventricular Hyperlipidemia THYROID FUNCTION CASCADE, S Routine 06/09/2022 11:37 AM WELDING ROD COATER Cardiomyopathy Ischemic Coronary Artery Disease With Stable Angina (HCC) Aneurysm Coronary Artery Ectopy Ventricular Hyperlipidemia LIPID PANEL, S Routine 06/09/2022 11:37 AM WELDING ROD COATER Cardiomyopathy Ischemic Coronary Artery Disease With Stable Angina (HCC) Aneurysm Coronary Artery Ectopy Ventricular Hyperlipidemia OUTSIDE US BODY Routine 03/17/2022 8:10 AM CDT OUTSIDE DX SKELETAL Routine 11/24/2021 9:15 AM CDT OUTSIDE DX SKELETAL Routine 11/24/2021 9:10 AM CDT SARS CORONAVIRUS-2 RNA, V Routine 07/05/2021 2:52 PM WELDING ROD COATER Contact With And (Suspected) Exposure To COVID-19 [...] COLOR AND CONTRAST Routine 06/16/2020 1:43 PM WELDING ROD COATER Beat Premature Ventricular Cardiomyopathy Ischemic Coronary Artery Disease With Stable Angina (HCC) Hyperlipidemia ECG Routine 06/16/2020 8:56 AM WELDING ROD COATER Beat Premature Ventricular Cardiomyopathy Ischemic Coronary Artery Disease With Stable Angina (HCC) Hyperlipidemia CBC WITHOUT DIFFERENTIAL, B Routine 06/16/2020 8:44 AM WELDING ROD COATER Beat Premature Ventricular Cardiomyopathy Ischemic Coronary Artery Disease With Stable Angina (HCC) Hyperlipidemia NT-PRO B-TYPE NATRIURETIC PEPTIDE (BNP), S Routine 06/16/2020 8:44 AM WELDING ROD COATER Beat Premature Ventricular Cardiomyopathy Ischemic Coronary Artery Disease With Stable Angina (HCC) Hyperlipidemia THYROID-STIMULATING HORMONE-SENSITIVE (S-TSH) Routine 06/16/2020 8:44 AM WELDING ROD COATER Beat Premature Ventricular Cardiomyopathy Ischemic Coronary Artery Disease With Stable Angina (HCC) Hyperlipidemia LIPID PANEL, S Routine 06/16/2020 8:44 AM WELDING ROD COATER Beat Premature Ventricular Cardiomyopathy Ischemic Coronary Artery Disease With Stable Angina (HCC) Hyperlipidemia COMPREHENSIVE METABOLIC PANEL, S/P Routine 06/16/2020 8:44 AM WELDING ROD COATER Beat Premature Ventricular Cardiomyopathy Ischemic Coronary Artery Disease With Stable Angina (HCC) Hyperlipidemia HOLTER MONITOR - IN CLINIC TILE SORTER Routine 07/21/2019 9:34 AM WELDING ROD COATER Failure Heart (HCC) Beat Premature Ventricular Cardiomyopathy Ischemic ECG Routine 07/08/2019 11:23 AM WELDING ROD COATER Cardiomyopathy Ischemic Failure Heart (HCC) Chronic Kidney Disease Stage 3 Glomerular Filtration Rate 30 To 59 Hyperlipidemia Aneurysm Coronary Artery Coronary Artery Disease With Stable Angina (HCC) NM CARDIAC BLOOD POOL MUGA AT REST RAD - Routine (most inpatients and all outpatients) 07/08/2019 11:12 AM WELDING ROD COATER Cardiomyopathy Ischemic Failure Heart (HCC) Chronic Kidney Disease Stage 3 Glomerular Filtration Rate 30 To 59 Hyperlipidemia Aneurysm Coronary Artery Coronary Artery Disease With Stable Angina (HCC) CBC WITHOUT DIFFERENTIAL, B Routine 07/08/2019 10:58 AM WELDING ROD COATER Cardiomyopathy Ischemic Failure Heart (HCC) Chronic Kidney Disease Stage 3 Glomerular Filtration Rate 30 To 59 Hyperlipidemia Aneurysm Coronary Artery Coronary Artery Disease With Stable Angina (HCC) NT-PRO B-TYPE NATRIURETIC PEPTIDE (BNP), S Routine 07/08/2019 10:58 AM WELDING ROD COATER Cardiomyopathy Ischemic Failure Heart (HCC) Chronic Kidney Disease Stage 3 Glomerular Filtration Rate 30 To 59 Hyperlipidemia Aneurysm Coronary Artery Coronary Artery Disease With Stable Angina (HCC) LIPID PANEL, S Routine 07/08/2019 10:58 AM WELDING ROD COATER Cardiomyopathy Ischemic Failure Heart (HCC) Chronic Kidney Disease Stage 3 Glomerular Filtration Rate 30 To 59 Hyperlipidemia Aneurysm Coronary Artery Coronary Artery Disease With Stable Angina (HCC) BASIC METABOLIC PANEL, S/P Routine 07/08/2019 10:54 AM WELDING ROD COATER Failure Heart (HCC) CARDIOPULMONARY (VO2) EXERCISE TEST [...] TIME (PT), P Routine 05/28/2018 9:18 AM WELDING ROD COATER Coronary Artery Disease CBC WITHOUT DIFFERENTIAL, B Routine 06/12/2017 6:50 AM WELDING ROD COATER PROTHROMBIN TIME (PT), P Routine 06/12/2017 6:50 AM WELDING ROD COATER ELPN WITH CREATININE SHEREEN, P Routine 06/12/2017 6:50 AM WELDING ROD COATER PROTHROMBIN TIME (PT), P Routine 06/11/2017 7:46 AM WELDING ROD COATER CBC WITHOUT DIFFERENTIAL, B Routine 06/11/2017 7:46 AM WELDING ROD COATER ELPN WITH CREATININE SHEREEN, P Routine 06/11/2017 7:46 AM WELDING ROD COATER ECG Routine 06/11/2017 7:15 AM WELDING ROD COATER DX CHEST AP OR PA AND LATERAL 2 VIEWS Routine 06/11/2017 6:08 AM WELDING ROD COATER GLUCOSE POCT, B Routine 06/10/2017 5:36 PM WELDING ROD COATER GLUCOSE POCT, B Routine 06/10/2017 12:05 PM WELDING ROD COATER DX CHEST PORTABLE 1 VIEW Routine 06/10/2017 9:22 AM WELDING ROD COATER ELPN WITH CREATININE SHEREEN, P Routine 06/10/2017 6:09 AM WELDING ROD COATER CBC WITHOUT DIFFERENTIAL, B Routine 06/10/2017 6:09 AM WELDING ROD COATER PROTHROMBIN TIME (PT), P Routine 06/10/2017 6:09 AM WELDING ROD COATER GLUCOSE POCT, B Routine 06/09/2017 10:40 PM WELDING ROD COATER DX ABDOMEN PORTABLE ANTERIOR POSTERIOR 1 VIEW Routine 06/09/2017 6:25 PM WELDING ROD COATER GLUCOSE POCT, B Routine 06/09/2017 5:54 PM WELDING ROD COATER DX CHEST AP OR PA AND LATERAL 2 VIEWS Routine 06/09/2017 5:35 PM WELDING ROD COATER GLUCOSE POCT, B Routine 06/09/2017 12:33 PM WELDING ROD COATER MAGNESIUM, S Routine 06/09/2017 6:18 AM WELDING ROD COATER PROTHROMBIN TIME (PT), P Routine 06/09/2017 6:18 AM WELDING ROD COATER CBC WITHOUT DIFFERENTIAL, B Routine 06/09/2017 6:18 AM WELDING ROD COATER ELPN WITH CREATININE SHEREEN, P Routine 06/09/2017 6:18 AM WELDING ROD COATER PHOSPHORUS (INORGANIC), S Routine 06/09/2017 6:18 AM WELDING ROD COATER CALCIUM, TOT, S/P Routine 06/09/2017 6:18 AM WELDING ROD COATER MICROSCOPIC MANUAL Routine 06/08/2017 11:13 PM WELDING ROD COATER CREATININE, RANDOM, U Routine 06/08/2017 11:13 PM WELDING ROD COATER URINALYSIS WITH MICROSCOPIC Routine 06/08/2017 11:13 PM WELDING ROD COATER CHLORIDE, RANDOM, U Routine 06/08/2017 11:13 PM WELDING ROD COATER SODIUM, RANDOM, U Routine 06/08/2017 11:13 PM WELDING ROD COATER DX CHEST PORTABLE POST-PICC PLACEMENT 1 VIEW Routine 06/08/2017 6:35 PM WELDING ROD COATER GLUCOSE POCT, B Routine 06/08/2017 6:01 PM WELDING ROD COATER ELPN WITH CREATININE SHEREEN, P Routine 06/08/2017 3:44 PM WELDING ROD COATER GLUCOSE POCT, B Routine 06/08/2017 11:39 AM WELDING ROD COATER GLUCOSE POCT, B Routine 06/08/2017 7:39 AM WELDING ROD COATER ELPN WITH CREATININE SHEREEN, P Routine 06/08/2017 6:38 AM WELDING ROD COATER CBC WITHOUT DIFFERENTIAL, B Routine 06/08/2017 6:38 AM WELDING ROD COATER PROTHROMBIN TIME (PT), P Routine 06/08/2017 6:38 AM WELDING ROD COATER DX CHEST PORTABLE 1 VIEW Routine 06/08/2017 6:35 AM WELDING ROD COATER GLUCOSE POCT, B Routine 06/07/2017 9:52 PM WELDING ROD COATER GLUCOSE POCT, B Routine 06/07/2017 6:06 PM WELDING ROD COATER GLUCOSE POCT, B Routine 06/07/2017 11:43 AM WELDING ROD COATER ELPN WITH CREATININE SHEREEN, P Routine 06/07/2017 11:43 AM WELDING ROD COATER PROTHROMBIN TIME (PT), P Routine 06/07/2017 11:43 AM WELDING ROD COATER CORTROSYN STIM/ANTONI Routine 06/07/2017 9:02 AM WELDING ROD COATER THYROID FUNCTION CASCADE, S Routine 06/07/2017 9:02 AM WELDING ROD COATER GLUCOSE POCT, B Routine 06/07/2017 7:48 AM WELDING ROD COATER DX CHEST PORTABLE 1 VIEW Routine 06/07/2017 6:38 AM WELDING ROD COATER ELPN WITH CREATININE SHEREEN, P Routine 06/07/2017 5:47 AM WELDING ROD COATER PROTHROMBIN TIME (PT), P Routine 06/07/2017 5:47 AM WELDING ROD COATER ABG W/COOX Routine 06/07/2017 5:47 AM WELDING ROD COATER CBC WITHOUT DIFFERENTIAL, B Routine 06/07/2017 5:47 AM WELDING ROD COATER GLUCOSE POCT, B Routine 06/06/2017 9:44 PM WELDING ROD COATER ELPN WITH CREATININE SHEREEN, P Routine 06/06/2017 8:51 PM WELDING ROD COATER GLUCOSE POCT, B Routine 06/06/2017 5:16 PM WELDING ROD COATER ELPN WITH CREATININE SHEREEN, P Routine 06/06/2017 12:50 PM WELDING ROD COATER GLUCOSE POCT, B Routine 06/06/2017 12:42 PM WELDING ROD COATER PREPARE RED BLOOD CELLS Routine 06/06/2017 8:22 AM WELDING ROD COATER ANTIBODY SCREEN, B Routine 06/06/2017 8:22 AM WELDING ROD COATER ABORH, RBC Routine 06/06/2017 8:22 AM WELDING ROD COATER ABG W/COOX Routine 06/06/2017 8:08 AM WELDING ROD COATER GLUCOSE POCT, B Routine 06/06/2017 8:06 AM WELDING ROD COATER DX CHEST PORTABLE 1 VIEW Routine 06/06/2017 6:45 AM WELDING ROD COATER CBC WITHOUT DIFFERENTIAL, B Routine 06/06/2017 4:53 AM WELDING ROD COATER PROTHROMBIN TIME (PT), P Routine 06/06/2017 4:53 AM WELDING ROD COATER ELPN WITH CREATININE SHEREEN, P Routine 06/06/2017 4:53 AM WELDING ROD COATER ELPN WITH CREATININE SHEREEN, P Routine 06/06/2017 2:57 AM WELDING ROD COATER GLUCOSE POCT, B Routine 06/05/2017 9:40 PM WELDING ROD COATER GLUCOSE POCT, B Routine 06/05/2017 5:36 PM WELDING ROD COATER LACTATE, B/P Routine 06/05/2017 4:51 PM WELDING ROD COATER GLUCOSE POCT, B Routine 06/05/2017 4:49 PM WELDING ROD COATER ABG W/COOX Routine 06/05/2017 3:56 PM WELDING ROD COATER GLUCOSE POCT, B Routine 06/05/2017 3:54 PM WELDING ROD COATER DX CHEST PORTABLE 1 VIEW Routine 06/05/2017 3:10 PM WELDING ROD COATER ABG AND ELECTROLYTES, B ([place] - [place]) Routine 06/05/2017 2:51 PM WELDING ROD COATER GLUCOSE POCT, B Routine 06/05/2017 2:48 PM WELDING ROD COATER GLUCOSE POCT, B Routine 06/05/2017 1:25 PM WELDING ROD COATER ELECTROLYTE (CHEM 4) PANEL, S/P Routine 06/05/2017 12:35 PM WELDING ROD COATER GLUCOSE POCT, B Routine 06/05/2017 12:14 PM WELDING ROD COATER GLUCOSE POCT, B Routine 06/05/2017 11:26 AM WELDING ROD COATER GLUCOSE POCT, B Routine 06/05/2017 10:31 AM WELDING ROD COATER GLUCOSE POCT, B Routine 06/05/2017 9:33 AM WELDING ROD COATER GLUCOSE POCT, B Routine 06/05/2017 8:37 AM WELDING ROD COATER GLUCOSE POCT, B Routine 06/05/2017 8:00 AM WELDING ROD COATER GLUCOSE POCT, B Routine 06/05/2017 6:41 AM WELDING ROD COATER DX CHEST PORTABLE 1 VIEW Routine 06/05/2017 6:03 AM WELDING ROD COATER GLUCOSE POCT, B Routine 06/05/2017 5:34 AM WELDING ROD COATER GLUCOSE POCT, B Routine 06/05/2017 4:28 AM WELDING ROD COATER ELPN WITH CREATININE SHEREEN, P Routine 06/05/2017 3:49 AM WELDING ROD COATER ACTIVATED PARTIAL THROMBOPLASTIN TIME (APTT), P Routine 06/05/2017 3:49 AM WELDING ROD COATER CBC WITHOUT DIFFERENTIAL, B Routine 06/05/2017 3:49 AM WELDING ROD COATER ABG W/COOX Routine 06/05/2017 3:49 AM WELDING ROD COATER PROTHROMBIN TIME (PT), P Routine 06/05/2017 3:49 AM WELDING ROD COATER GLUCOSE POCT, B Routine 06/05/2017 3:44 AM WELDING ROD COATER GLUCOSE POCT, B Routine 06/05/2017 2:48 AM WELDING ROD COATER GLUCOSE POCT, B Routine 06/05/2017 1:36 AM WELDING ROD COATER GLUCOSE POCT, B Routine 06/05/2017 12:50 AM WELDING ROD COATER GLUCOSE POCT, B Routine 06/04/2017 11:49 PM WELDING ROD COATER ACTIVATED PARTIAL THROMBOPLASTIN TIME (APTT), P Routine 06/04/2017 11:07 PM WELDING ROD COATER ELPN WITH CREATININE SHEREEN, P Routine 06/04/2017 11:07 PM WELDING ROD COATER ABG W/COOX Routine 06/04/2017 11:07 PM WELDING ROD COATER FIBRINOGEN, P Routine 06/04/2017 11:07 PM WELDING ROD COATER CBC WITHOUT DIFFERENTIAL, B Routine 06/04/2017 11:07 PM WELDING ROD COATER LACTATE, B/P Routine 06/04/2017 11:07 PM WELDING ROD COATER PROTHROMBIN TIME (PT), P Routine 06/04/2017 11:07 PM WELDING ROD COATER ACT, POCT, B Routine 06/04/2017 11:06 PM WELDING ROD COATER GLUCOSE POCT, B Routine 06/04/2017 11:04 PM WELDING ROD COATER DX CHEST PORTABLE 1 VIEW Routine 06/04/2017 10:34 PM WELDING ROD COATER ECG Routine 06/04/2017 10:13 PM WELDING ROD COATER ABG W/COOX Routine 06/04/2017 8:19 PM WELDING ROD COATER CALCIUM, IONIZED, S/B Routine 06/04/2017 8:19 PM WELDING ROD COATER LACTATE, B/P Routine 06/04/2017 8:19 PM WELDING ROD COATER GLUCOSE, WHOLE BLOOD Routine 06/04/2017 8:19 PM WELDING ROD COATER POTASSIUM, B Routine 06/04/2017 8:19 PM WELDING ROD COATER SODIUM, S/P Routine 06/04/2017 8:19 PM WELDING ROD COATER ACT, POCT, B Routine 06/04/2017 8:18 PM WELDING ROD COATER GLUCOSE POCT, B Routine 06/04/2017 8:18 PM WELDING ROD COATER HEMOGLOBIN (HGB), POCT, B Routine 06/04/2017 8:17 PM WELDING ROD COATER ACTIVATED PARTIAL THROMBOPLASTIN TIME (APTT), P Routine 06/04/2017 7:32 PM WELDING ROD COATER FIBRINOGEN, P Routine 06/04/2017 7:32 PM WELDING ROD COATER PROTHROMBIN TIME (PT), P Routine 06/04/2017 7:32 PM WELDING ROD COATER CBC WITHOUT DIFFERENTIAL, B Routine 06/04/2017 7:32 PM WELDING ROD COATER GLUCOSE POCT, B Routine 06/04/2017 7:27 PM WELDING ROD COATER LACTATE, B/P Routine 06/04/2017 6:50 PM WELDING ROD COATER GLUCOSE POCT, B Routine 06/04/2017 6:48 PM WELDING ROD COATER ABG W/COOX Routine 06/04/2017 5:27 PM WELDING ROD COATER GLUCOSE POCT, B Routine 06/04/2017 5:25 PM WELDING ROD COATER GLUCOSE POCT, B Routine 06/04/2017 4:44 PM WELDING ROD COATER GLUCOSE POCT, B Routine 06/04/2017 3:37 PM WELDING ROD COATER DX CHEST PORTABLE 1 VIEW Routine 06/04/2017 3:04 PM WELDING ROD COATER ACT, POCT, B Routine 06/04/2017 2:41 PM WELDING ROD COATER PROTHROMBIN TIME (PT), P Routine 06/04/2017 2:41 PM WELDING ROD COATER ACTIVATED PARTIAL THROMBOPLASTIN TIME (APTT), P Routine 06/04/2017 2:41 PM WELDING ROD COATER CALCIUM, IONIZED, S/B Routine 06/04/2017 2:41 PM WELDING ROD COATER ABG W/COOX Routine 06/04/2017 2:41 PM WELDING ROD COATER LACTATE, B/P Routine 06/04/2017 2:41 PM WELDING ROD COATER CBC WITHOUT DIFFERENTIAL, B Routine 06/04/2017 2:41 PM WELDING ROD COATER FIBRINOGEN, P Routine 06/04/2017 2:41 PM WELDING ROD COATER ELPN WITH CREATININE SHEREEN, P Routine 06/04/2017 2:41 PM WELDING ROD COATER GLUCOSE POCT, B Routine 06/04/2017 2:31 PM WELDING ROD COATER DX CHEST PORTABLE 1 VIEW Routine 06/04/2017 1:59 PM WELDING ROD COATER ACTIVATED PARTIAL THROMBOPLASTIN TIME (APTT), P Routine 06/04/2017 12:37 PM WELDING ROD COATER PLATELETS, B Routine 06/04/2017 12:37 PM WELDING ROD COATER SODIUM, S/P Routine 06/04/2017 12:37 PM WELDING ROD COATER ABG W/COOX Routine 06/04/2017 12:37 PM WELDING ROD COATER FIBRINOGEN, P Routine 06/04/2017 12:37 PM WELDING ROD COATER LACTATE, B/P Routine 06/04/2017 12:37 PM WELDING ROD COATER PROTHROMBIN TIME (PT), P Routine 06/04/2017 12:37 PM WELDING ROD COATER CALCIUM, IONIZED, S/B Routine 06/04/2017 12:37 PM WELDING ROD COATER GLUCOSE, WHOLE BLOOD Routine 06/04/2017 12:37 PM WELDING ROD COATER POTASSIUM, B Routine 06/04/2017 12:37 PM WELDING ROD COATER ACT, POCT, B Routine 06/04/2017 12:36 PM WELDING ROD COATER ACT, POCT, B Routine 06/04/2017 11:36 AM WELDING ROD COATER POTASSIUM, B Routine 06/04/2017 11:05 AM WELDING ROD COATER SODIUM, S/P Routine 06/04/2017 11:05 AM WELDING ROD COATER GLUCOSE, WHOLE BLOOD Routine 06/04/2017 11:05 AM WELDING ROD COATER CALCIUM, IONIZED, S/B Routine 06/04/2017 11:05 AM WELDING ROD COATER ABG W/COOX Routine 06/04/2017 11:05 AM WELDING ROD COATER ACT, POCT, B Routine 06/04/2017 10:49 AM WELDING ROD COATER HXINTRA-OP AUTO TX Routine 06/04/2017 10:45 AM WELDING ROD COATER ACT, POCT, B Routine 06/04/2017 10:15 AM WELDING ROD COATER HEMOGLOBIN (HGB), POCT, B Routine 06/04/2017 10:14 AM WELDING ROD COATER ACT, POCT, B Routine 06/04/2017 8:48 AM WELDING ROD COATER POTASSIUM, B Routine 06/04/2017 8:42 AM WELDING ROD COATER ABG W/COOX Routine 06/04/2017 8:42 AM WELDING ROD COATER GLUCOSE, WHOLE BLOOD Routine 06/04/2017 8:42 AM WELDING ROD COATER LACTATE, B/P Routine 06/04/2017 8:42 AM WELDING ROD COATER SODIUM, S/P Routine 06/04/2017 8:42 AM WELDING ROD COATER CALCIUM, IONIZED, S/B Routine 06/04/2017 8:42 AM WELDING ROD COATER ANESTHESIOLOGY IMAGE EXAM Routine 06/04/2017 7:50 AM WELDING ROD COATER ECHO TRANSESOPHAGEAL (JOSTIN) Routine 06/04/2017 7:37 AM WELDING ROD COATER ECHOCARDIOLOGY IMAGE EXAM Routine 06/04/2017 6:45 AM WELDING ROD COATER ECG Routine 06/01/2017 12:34 PM WELDING ROD COATER US LOWER EXTREMITY VEINS Routine 06/01/2017 12:09 PM WELDING ROD COATER US UPPER EXTREMITY ARTERIES GRAFT Routine 06/01/2017 12:08 PM WELDING ROD COATER ABORH, RBC Routine 06/01/2017 11:56 AM WELDING ROD COATER ANTIBODY SCREEN, B Routine 06/01/2017 11:55 AM WELDING ROD COATER ABORH, RBC Routine 06/01/2017 11:55 AM WELDING ROD COATER CBC WITH DIFFERENTIAL, B Routine 06/01/2017 10:37 AM WELDING ROD COATER POTASSIUM, S/P Routine 06/01/2017 10:37 AM WELDING ROD COATER SODIUM, S/P Routine 06/01/2017 10:37 AM WELDING ROD COATER BUN (BLOOD UREA NITROGEN), S/P Routine 06/01/2017 10:37 AM WELDING ROD COATER PROTHROMBIN TIME (PT), P Routine 06/01/2017 10:37 AM WELDING ROD COATER CREATININE WITH EGFR, S/P Routine 06/01/2017 10:37 AM WELDING ROD COATER HEMOGLOBIN A1C, B Routine 06/01/2017 10:37 AM WELDING ROD COATER DX CHEST AP OR PA AND LATERAL 2 VIEWS Routine 06/01/2017 9:36 AM WELDING ROD COATER CARDIOLOGY IMAGE EXAM Routine 05/08/2017 11:15 AM WELDING ROD COATER CARDIAC CATHETERIZATION Routine 05/08/2017 11:08 AM WELDING ROD COATER COENZYME Q10, TOTAL, P Routine 05/08/2017 7:52 AM WELDING ROD COATER ALKALINE PHOSPHATASE, S/P Routine 05/08/2017 7:52 AM WELDING ROD COATER LIPASE, S/P Routine 05/08/2017 7:52 AM WELDING ROD COATER 25-HYDROXYVITAMIN D2 AND D3, S Routine 05/08/2017 7:52 AM WELDING ROD COATER ALANINE AMINOTRANSFERASE (ALT), S/P Routine 05/08/2017 7:52 AM WELDING ROD COATER BILIRUBIN, TOT, S/P Routine 05/08/2017 7:52 AM WELDING ROD COATER ECG Routine 05/04/2017 8:36 AM CDT CBC [...] WRIST 3+ VIEWS Routine 05/29/2016 8:22 AM WELDING ROD COATER DX HAND UNILATERAL 2 VIEWS Routine 05/29/2016 8:22 AM WELDING ROD COATER DX FINGER UNILATERAL 2+ VIEWS Routine 05/29/2016 8:22 AM WELDING ROD COATER CARDIAC CATHETERIZATION Routine 05/02/2016 10:50 AM CDT [...] CHAMBER INTERROGATION WITH PROGRAMMING (06/16/2024 8:47 AM WELDING ROD COATER) Only the most recent of3 resultswithin the time period is included. Date Time Interrogation Session [id number] [facility] Implantable Pulse Generator Advertising Assistant [employer] [facility] Implantable Pulse Generator Type Defibrillator [facility] Implantable Pulse Generator Model D533 [facility] Implantable Pulse Generator Serial Number [id number] [facility] Implantable Pulse Generator Implant Date 20240319 [facility] Battery Status [facility] Chandrakant Statistic RA Percent Paced 72.00 [facility] [employer] Statistic RV Percent Paced 4.00 [facility] Lead Channel Sensing Intrinsic Amplitude 4.700 [facility] Lead Channel Setting Sensing Sensitivity 0.25 [facility] Lead Channel Impedance Value 595 [facility] Lead Channel Pacing Threshold Amplitude 0.900 [facility] Lead Channel Pacing Threshold Pulse Width 0.4 [facility] Lead Channel Measurements Date and Time 20240616 [facility] Lead Channel Setting Pacing Amplitude 2.000 [facility] Lead Channel Setting Pacing Pulse Width 0.4 [facility] Lead Channel Sensing Intrinsic Amplitude 7.100 [facility] Lead Channel Setting Sensing Sensitivity 0.60 [facility] Lead Channel Impedance Value 363 [facility] Lead Channel Pacing Threshold Amplitude 0.700 [facility] Lead Channel Pacing Threshold Pulse Width 0.4 [facility] Lead Channel Measurements Date and Time 20240320 [facility] Lead Channel Setting Pacing Amplitude 3.500 [facility] Lead Channel Setting Pacing Pulse Width 0.4 [facility] Chandrakant Setting Mode (NBG Code) DDDR [facility] Setting Lower Rate Limit 70 [facility] [employer] Setting AT Mode Switch Rate 170 [facility] [place] Setting Maximum Tracking Rate 120 [facility] [employer] Setting Maximum Sensor Rate 120 [facility] [place] Setting PAV Delay 180 [...] 2 [facility] Implantable Lead Advertising Assistant [employer] [facility] Implantable Lead Model 7841-52 [facility] Implantable Lead Location Right [facility] Implantable Lead Connection Status Connected [facility] Implantable Lead Serial Number [id number] [facility] Implantable Lead Implant Date 20240319 [facility] Implantable Lead Special Function Lead length: 52.00 cm [facility] Implantable Lead Advertising Assistant [employer] [facility] Implantable Lead Model 0672-59 [facility] Implantable Lead Location Right Ventricle [facility] Implantable Lead Connection Status Connected [facility] Implantable Lead Serial Number [id number] [facility] Implantable Lead Implant Date 20240319 [facility] Implantable Lead Special Function Lead length: 59.00 cm [facility] Anatomical Region Laterality Modality Echocardiography 06/20/2024 6:18 PM WELDING ROD COATER Impressions 06/20/2024 6:18 PM WELDING ROD COATER Encounter Impression: Title: Normal In-Office: With Events [...] 7:51 AM CDT) Date Time Interrogation Session [id number] [facility] Type Interrogation Session Remote Device Initiated [facility] Implantable Pulse Generator Advertising Assistant [employer] [facility] SYSTEM Implantable Pulse Generator Type Defibrillator [facility] Implantable Pulse Generator Model D533 [facility] Implantable Pulse Generator Serial Number [id number] [facility] Implantable Pulse Generator Implant Date 20240319 [facility] Battery Remaining Percentage 100.00 % [facility] Battery Remaining Longevity 120.0 mo [facility] Battery Status Beginning of Service [facility] Chandrakant Statistic RA Percent Paced [...] Lead Channel Pacing Threshold Pulse Width 0.4 [facility] Lead Channel Measurements Date and Time 2024-03-19 [facility] Lead Channel Setting Pacing Amplitude 3.500 [facility] Lead Channel Setting Pacing Pulse Width 0.4 [facility] Ch[facility] Setting Mode (NBG Code) DDDR [facility] [place] Setting Lower Rate Limit 70 [facility] Chandrakant Setting AT Mode Switch Rate 170 [facility] Chandra[place]ant Setting Maximum Tracking Rate 120 [facility] [place] Setting Maximum Sensor Rate 120 [facility] Chandrakant Setting PAV Delay 80 [facility] Chandrakant Setting CARLOS Delay 65 [facility] Therapy Statistic Recent Shocks Delivered 0 [facility] Therapy Statistic Recent Shocks Aborted 0 [facility] Therapy Statistic Recent ATP Delivered 0 [facility] Lead Channel Setting Sensing Polarity Bipolar [facility] Lead Channel Setting Sensing Polarity Bipolar [facility] Lead Channel Setting Pacing Polarity Bipolar [facility] Lead Channel Setting Pacing Polarity Bipolar [facility] Lead Channel Pacing Threshold Polarity Bipolar [facility] Lead Channel Pacing Threshold Polarity Bipolar [facility] Zone Setting Type Category VF [...] 2 [facility] Implantable Lead Advertising Assistant [employer] [facility] Implantable Lead Model 7841-52 [facility] Implantable Lead Location Right [facility] Implantable Lead Connection Status Connected [facility] Implantable Lead Serial Number [id number] [facility] Implantable Lead Implant Date 20240319 [facility] Implantable Lead Polarity Type Bipolar Lead [facility] Implantable Lead Special Function Lead length: 52.00 cm [facility] Implantable Lead Advertising Assistant [employer] [facility] Implantable Lead Model 0672-59 [facility] Implantable Lead Location Right Ventricle [facility] Implantable Lead Connection Status Connected [facility] Implantable Lead Serial Number [id number] [facility] Implantable Lead Implant Date 20240319 [facility] Implantable Lead Polarity Type Unknown [facility] Implantable Lead Special Function Lead length: 59.00 cm [facility] Anatomical Region Laterality Modality Other [...] included. Ventricular Rate ECG/Min 73 BPM MUSE [place] Interval 224 ms MUSE QRSD Interval 106 ms MUSE QT Interval 420 ms MUSE QTC Interval 462 ms MUSE R [place] -52 degrees MUSE T Wave [place] 77 degrees MUSE 03/19/2024 3:55 PM CDT [...] M.D. LAB BLOOD ADD-ON Fi nal Result [facility] [address] [place] [address], [facility] [address] [place] [address] * Type and Screen (with Reflex Antibody [...] LAB BLOOD BANK TEST ORDERABLES Final Result [facility] [address] [place] [address], [place] [facility] [address] [place] [address] * (ABNORMAL) Comprehensive Metabolic Panel (03/18/2024 11:06 [...] M.D. LAB BLOOD ADD-ON Fi nal Result [facility] [address] [place] [address], [facility] [address] [place] [address] * (TTE) 2D ECHO DOPPLER COLOR (03/18/2024 [...] CDT Status post coronary artery bypass graft(s) ([place], 06-04-2017). LEFT VENTRICLE:Mildly enlarged left ventricular chamber [...] Findings Status post coronary artery bypass graft(s) ([place], 06-04-2017). LEFT VENTRICLE:Mildly enlarged left ventricular chamber [...] M.D. LAB BLOOD ADD-ON Final Resul t [facility] [address] [place] [address], [facility] DTL [facility] [address] [place] [address] * HOLTER MONITOR - IN CLINIC TILE SORTER (12/18/2023 12:08 PM CDT) Only the most recent of5 resultswithin the time period is included. Bradycardia Runs 0 count HOLTER SENTINEL Min Heart Rate 46 ALEIDA R SENTINEL Holter Pauses 0 count HOLTER SENTINEL SVE Max Per Hour Time [id number] HOLTER SENTINEL SVE Percent Beats 0 percent HOLTER SENTINEL VT Max Rate Time [id number] HOLTER SENTINEL Max Heart Rate 106 ALEIDA R SENTINEL VT Longest 5 beats HOLTER SENTINEL VT Runs 17 count HOLTER SENTINEL SVE Max Per Hour 77 count HOLTER SENTINEL SVE Total Beats 421 count HOLTER SENTINEL VE Total Beats 16,415 count ALEIDA R SENTINEL Recording Date [id number] HOLTER SENTINEL VT Max Rate 124 HOLTER SENTINEL Mean Heart Rate 71 HOLTER SENTINEL VE Percent Beats 12 percent HOLTER SENTINEL Max Heart Rate Time [id number] HOLTER SENTINEL VT Longest Time [id number] HOLTER SENTINEL VE Max Per Hour 1,346 count HOLTER SENTINEL Analysis Date 20,240,625 ALEIDA R SENTINEL Min Heart Rate Time [id number] HOLTER SENTINEL VE Max Per Hour Time [id number] HOLTER SENTINEL AF Count 0 count HOLTER SENTINEL SVT Runs 0 count HOLTER SENTINEL Tachycardia Runs 0 count HOLTER SENTINEL 12/18/2023 12:0 6 PM CDT Kemal Gu M.D. CV CARDIAC SERVICES PROCEDURES Final Result Performing Organization Address City/[facility]/ZIP Co de Phone Number HOLTER SENTINEL [...] PROCEDURES Final R esult Performing Organization Address [facility]/[place] de Phone Number IIMS NA * CT [...] Provider Not In System IMG DIAGNOSTIC IMAGING [place] OCEDURES Final Result Performing Organization Address [facility] de Phone Number IIMS NA * ECHO TTE LIMITED W CONTRAST W COLOR W DOPPLER-Outside US Card (09/19/2023 12:00 AM CDT) Narrative [facility] - 09/26/2023 4:22 PM CDT This order [...] PROCE DURES Final Result Performing Organization Address [facility]/[place] de Phone Number IIMS NA * MR Cardiac without and with IV Contrast (07/06/2023 12:32 PM WELDING ROD COATER) Only the most recent of2 resultswithin the time period is included. Anatomical Region Laterality Modality Cardiac, Cardiovascular RST LOS, Thoracic ARZ LOS, Cardiovascular FLA LOS N/A Magnetic Resonance Impressions 07/06/2023 2:46 PM WELDING ROD COATER 1. Linear mid-myocardial and subepicardial late enhancement [...] function. RVEF 45%. Narrative 07/06/2023 2:46 PM WELDING ROD COATER EXAM: MR CARDIAC WITHOUT AND WITH IV [...] ult * Lipid Panel (07/06/2023 10:59 AM WELDING ROD COATER) Only the most recent of8 resultswithin the time period is included. Triglycerides 121 mg/dL 07/06/2023 11:55 AM WELDING ROD COATER DTL Comment: ----REFERENCE VALUE---- Normal: <150 mg/dL Borderline High: 150-199 mg/dL High: 200-499 mg/dL Very High: > or =500 mg/dL Cholesterol, Total 143 mg/dL 2023 11:55 AM WELDING ROD COATER DTL Comment: ----REFERENCE VALUE---- Desirable: < 200 mg/dL Borderline High: 200 - 239 mg/dL High: > or = 240 mg/dL Cholesterol, LDL, Calculated 62 mg/dL 07/06/2023 11:55 AM WELDING ROD COATER DTL Comment: ----REFERENCE VALUE---- Desirable: <100 mg/dL Above Desirable: 100-129 mg/dL Borderline High: 130-159 mg/dL High: 160-189 mg/dL Very High: >=190 mg/dL ----ADDITIONAL INFORMATION---- LDL cholesterol calculated using the Madrid/NIH equation. Cholesterol, HDL, S 60 >=40 mg/dL 07/06/2023 11:55 AM WELDING ROD COATER DTL Cholesterol, Non-HDL, Calculated 83 mg/dL 07/06/2023 11:55 AM WELDING ROD COATER DTL Comment: ----REFERENCE VALUE---- Desirable: <130 mg/dL Above Desirable: 130-159 mg/dL Borderline High: 160-189 mg/dL High: 190-219 mg/dL Very High: > or =220 mg/dL Fasting (8 HR or more) No 07/06/2023 11:37 AM WELDING ROD COATER DTL Blood (Blood, Venous) 07/06/2023 10:59 AM WELDING ROD COATER 07/06/2023 11:37 AM WELDING ROD COATER us Neha Gardner M.D. LAB BLOOD ADD-ON Final Resul t [facility] [address] [place] [address], [facility] [address] [place] [address] * ALT (Alanine Aminotransferase) (07/06/2023 10:59 AM WELDING ROD COATER) Only the most recent of2 resultswithin the time period is included. Alanine Aminotransferase (ALT), S 14 7 - 55 U/L 07/06/2023 11:55 AM WELDING ROD COATER DTL Blood (Blood, Venous) 07/06/2023 10:59 AM WELDING ROD COATER 07/06/2023 11:37 AM WELDING ROD COATER us Neha Gardner M.D. LAB BLOOD ADD-ON Final Resul t [facility] [address] [place] [address], [facility] [place] [facility] [address] [place] [address] * Pulmonary Function Tests (06/15/2023 10:28 AM [employer]) PostFVC 3.53 L 06/15/2023 12:58 PM [facility] PostFEV1 2.25 L 06/15/2023 12:58 PM [facility] FEV1/FVC POST 63.77 % 06/15/2023 12:58 PM [facility] FEF 25-75 % POST 1.14 L/s 06/15/2023 12:58 PM [facility] PEF POST 7.34 L/s 06/15/2023 12:58 PM [facility] PIF POST 6.44 L/s 06/15/2023 12:58 PM [facility] FEF 50 % FIF 50 POST 20.99 % 06/15/2023 12:58 PM [facility] FET POST 11.81 sec 06/15/2023 12:58 PM [facility] TLC 6.06 L 06/15/2023 12:58 PM [facility] FRCPLETH PROVBASE 3.84 L 06/15/2023 12:58 PM [facility] SU[facility] RV 2.62 L 06/15/2023 12:58 PM [facility] RV % TLC PRE 43.31 % 06/15/2023 12:58 PM [facility] SU[facility] DLCO 22.57 ml/(min*mm Hg) 06/15/2023 12:58 PM [facility] DLCOc 21.97 ml/(min*mm Hg) 06/15/2023 12:58 PM [facility] HB 15.60 g(Hb)/dL 06/15/2023 12:58 PM [facility] VA 5.98 L 06/15/2023 12:58 PM [facility] FVC 3.07 L 06/15/2023 12:58 PM [facility] FEV1 1.91 L 06/15/2023 12:58 PM [facility] FEV1/FVC 62.18 % 06/15/2023 12:58 PM [facility] MLN87-37% 0.91 L/s 06/15/2023 12:58 PM [facility] PEF PRE 6.25 L/s 06/15/2023 12:58 PM [facility] PIF PRE 6.02 L/s 06/15/2023 12:58 PM [facility] FEF 50 % FIF 50 PRE 17.83 % 06/15/2023 12:58 PM [facility] FET PRE 12.37 sec 06/15/2023 12:58 PM [facility] SUBSTANCE POST Albuterol 06/15/2023 12:58 PM [facility] 06/15/2023 10:2 8 AM [employer] Impressions [facility] - 06/15/2023 12:58 PM [employer] The FEV1 is mildly reduced with the [...] PFT ORDERABLES Final Result Performing Organization Address City/[facility]/ZIP Co de Phone Number [facility] SUITE NA * Thyroid Function Phenix (06/15/2023 8:28 AM [employer]) Only the most recent of3 resultswithin the time period is included. TSH, Sensitive 3.5 0.3 - 4.2 mIU/L 06/15/2023 9:38 AM [employer] DTL Blood (Blood, Venous) 06/15/2023 8:28 AM [employer] 06/15/2023 9:13 AM [employer] us Neha Gardner M.D. LAB BLOOD ADD-ON Final Resul t Performing Organization Address [facility] Co de Phone Number [facility] [address] [facility] [address] [place] [address] * Magnesium (06/15/2023 8:28 AM [employer]) Only the most recent of4 resultswithin the time period is included. Magnesium, S 2.2 1.7 - 2.3 mg/dL 06/15/2023 9:38 AM [employer] DTL Blood (Blood, Venous) 06/15/2023 8:28 AM [employer] 06/15/2023 9:13 AM [employer] us Neha Gardner M.D. LAB BLOOD ADD-ON Final Resul t Performing Organization Address City/[facility] Co de Phone Number [facility] [address] [place] [address], [facility] DTL [facility] [address] [place] [address] * (ABNORMAL) Prothrombin Time (PT) (06/15/2023 8:27 AM [employer]) Only the most recent of18 resultswithin the time period is included. Prothrombin Time, P 36.9(H) 9.4 - 12.5 sec 06/15/2023 9:17 AM [employer] DTL INR 3.3 0.9 - 1.1 06/15/2023 9:17 AM [employer] DTL Comment: ----ADDITIONAL INFORMATION---- Standard intensity warfarin therapeutic range: 2.0 to 3.0 High intensity warfarin therapeutic range: 2.5 to 3.5 Blood (Blood, Venous) 06/15/2023 8:27 AM [employer] 06/15/2023 8:55 AM [employer] us Neha Gardner M.D. LAB BLOOD ADD-ON Final Resul t [facility] [address] [place] [address], [facility] [address] [place] [address] * (TTE) 2D ECHO DOPPLER COLOR (05/23/2023 1:44 PM [employer]) Ejection Fraction 56 MC CV EIMS Sinus [...] Region Laterality Modality Echocardiography 05/23/2023 1:10 PM [employer] Impressions 05/23/2023 11:12 PM [employer] Status post coronary artery bypass graft(s). Frequent [...] the Order-Level Documents. Narrative 05/23/2023 11:12 PM [employer] For the complete report, see the Order-Level Documents. Hemodynamics Heart Rate: 81 BPM Blood Pressure: 165 / 81 mmHg Final Impressions 1. Mildly enlarged left ventricular chamber size. Ejection fraction 56% with [id number] variability in setting of frequent ventricular ectopic [...] left ventricular chamber size. Ejection fraction 56%with apyx-zv-faxa variability in setting of frequent ventricular ectopicbeats. [...] B-Type Natriuretic Peptide (BNP) (05/23/2023 12:26 PM [employer]) Only the most recent of5 resultswithin the time period is included. NT-Pro BNP 996(H) <=540 pg/mL 05/23/2023 1:34 PM [employer] DTL Comment: NT-proBNP values less than 300 [...] failure. Blood (Blood, Venous) 05/23/2023 12:26 PM [employer] 05/23/2023 12:59 PM [employer] us Neha Gardner M.D. LAB BLOOD ADD-ON Final Resul t [facility] [address] [place] [address], [place] DTL [facility] [address] [place] [address] * (ABNORMAL) Hemoglobin A1c (05/23/2023 12:26 PM [employer]) Only the most recent of4 resultswithin the time period is included. Hemoglobin A1c, B 6.2(H) 4.0 - 5.6 % 05/23/2023 1:28 PM [employer] DTL Comment: Hemoglobin A1c values of 5.7-6.4 percent indicate an increased risk for developing diabetes mellitus. In diabetic patients, HbA1c goals should be discussed with healthcare provider. Blood (Blood, Venous) 05/23/2023 12:26 PM [employer] 05/23/2023 1:00 PM [employer] us Neha Gardner M.D. LAB BLOOD ADD-ON Final Resul t [facility] [address] [place] [address], [place] DTL [facility] [address] [place] [address] * (TTE) 2D ECHO DOPPLER COLOR AND CONTRAST (06/09/2022 4:08 PM [employer]) Pathologist [facility] Ejection Fraction 49 MC CV EIMS Sinus [...] Region Laterality Modality Echocardiography 06/09/2022 2:39 PM [employer] Impressions 06/09/2022 4:12 PM [employer] Status post coronary artery bypass graft(s). Frequent [...] the Order-Level Documents. Narrative 06/09/2022 4:12 PM [employer] For the complete report, see the Order-Level [...] CBC with Differential, Blood (06/09/2022 11:37 AM [employer]) Only the most recent of3 resultswithin the time period is included. Hemoglobin 15.3 13.2 - 16.6 g/dL 06/09/2022 12:24 PM [employer] DTL Hematocrit 48.9(H) 38.3 - 48.6 % 06/09/2022 12:24 PM [employer] DTL Erythrocytes 5.31 4.35 - 5.65 x10(12)/L 06/09/2022 12:24 PM [employer] DTL MCV 92.1 78.2 - 97.9 fL 06/09/2022 12:24 PM [employer] DTL RBC Distrib Width 14.2 11.8 - 14.5 % 06/09/2022 12:24 PM [employer] DTL Platelet Count 201 135 - 317 x10(9)/L 06/09/2022 12:24 PM [employer] DTL Leukocytes 5.9 3.4 - 9.6 x10(9)/L 06/09/2022 12:24 PM [employer] DTL Neutrophils 3.20 1.56 - 6.45 x10(9)/L 06/09/2022 12:24 PM [employer] DTL Lymphocytes 1.79 0.95 - 3.07 x10(9)/L 06/09/2022 12:24 PM [employer] DTL Monocytes 0.62 0.26 - 0.81 x10(9)/L 06/09/2022 12:24 PM [employer] DTL Eosinophils 0.24 0.03 - 0.48 x10(9)/L 06/09/2022 12:24 PM [employer] DTL Basophils <0.03 0.01 - 0.08 x10(9)/L 06/09/2022 12:24 PM [employer] DTL Blood (Blood, Venous) 06/09/2022 11:37 AM [employer] 06/09/2022 12:15 PM [employer] us Neha Gardner M.D. LAB BLOOD ADD-ON Final Resul t Performing Organization Address City/[facility]/[place] [address], [facility] [place] [address] * US Abd Aortic Aneurysm Screen-Outside US Body (03/17/2022 8:10 AM CDT) Narrative [facility] - 05/10/2022 1:22 PM [employer] This order has been created and auto-finalized to support the import of outside images. If available, original interpretation can be found on the Media Tab in Chart Review, in Document Viewer, or as an image in QREADS. If a re-interpretation or overread is required please follow defined workflow. us Provider Not In System IMG US PROCEDURES Final R esult Performing Organization Address City/[facility]/ZIP Co de Phone Number [facility] NA * KNEE, LEFT 1 or 2V-Outside Skeletal Xray (11/24/2021 9:15 AM CDT) Only the most recent of3 resultswithin the time period is included. Narrative [facility] - 05/10/2022 1:22 PM [employer] This order has been created and auto-finalized to support the import of outside images. If available, original interpretation can be found on the Media Tab in Chart Review, in Document Viewer, or as an image in QREADS. If a re-interpretation or overread is required please follow defined workflow. us Provider Not In System IMG DIAGNOSTIC IMAGING [place] OCEDURES Final Result Performing Organization Address [facility] Co de Phone Number [facility] NA * (ABNORMAL) SARS Coronavirus-2 RNA, V Symptomatic (07/05/2021 2:52 PM [employer]) SARS-CoV-2 Specimen Source Swab, Nasopharynx 07/05/2021 11:04 PM [employer] [facility] SARS CoV-2 RNA, TMA Detected(A) Undetected 07/05/2021 11:04 PM [employer] [facility] Comment: SARS-CoV-2 RNA present. ----ADDITIONAL INFORMATION---- This molecular amplification test was performed using the Aptima SARS-CoV-2 assay ([employer] on the [employer] System under emergency use authorization (EUA) by the U.S. Food and Drug Administration. Fact sheets for this EUA assay can be found at the following links: For Healthcare Providers: https://www.fda.gov/media/379834/download For Patients: https://www.fda.gov/media/619352/download Varies (Nasopharynx) 07/05/2021 2:52 PM [employer] 07/05/2021 5:13 PM [employer] us Tana Brunner M.D. LAB MICROBIOLOGY - GENERAL ORDERABLES Final Result Performing Organization Address City/[facility]/ZIP Co de Phone Number [facility] [employer] [place] [address], [facility] MK[facility] [place] [address] * Interpretation of Outside MR Head (03/22/2021 [...] DOPPLER COLOR AND CONTRAST (06/16/2020 1:43 PM [employer]) Ejection Fraction 44 MC CV EIMS Wall [...] Laterality Modality Echocardiography 06/16/2020 12:2 7 PM [employer] Impressions 06/16/2020 2:06 PM [employer] Intravenous Lumason ultrasound enhancement agent(s) administered to [...] the Order-Level Documents. Narrative 06/16/2020 2:06 PM [employer] For the complete report, see the Order-Level [...] (Thyroid-Stimulating Hormone - Sensitive) (06/16/2020 8:44 AM [employer]) Only the most recent of3 resultswithin the time period is included. TSH, Sensitive 1.7 0.3 - 4.2 mIU/L 06/16/2020 10:03 AM [employer] DTL Blood (Blood, Venous) 06/16/2020 8:44 AM [employer] 06/16/2020 9:06 AM [employer] us Neha Gardner M.D. LAB BLOOD ADD-ON Final Resul t [facility] [address] [place] [address], [facility] DTL [facility] [address] [place] [address] * [place] Cardiac Blood Pool MUGA (07/08/2019 11:12 AM [employer]) 07/08/2019 9:10 AM [employer] Narrative [facility] - 07/08/2019 11:45 AM [employer] See PDF For Result Procedure Note Sly [...] PROCEDURES Final R esult Performing Organization Address City/[facility]/ZIP Co de Phone Number CV RADHA NA * Pulmonary Function Tests (01/21/2019 9:02 AM CDT) DLCO SINGLE BREATH POST 21.13 ml/(min*mm Hg) 01/21/2019 1:48 PM CDT [facility] DLCOC SINGLE BREATH POST 20.32 ml/(min*mm Hg) 01/21/2019 1:48 PM CDT [facility] HB 16.10 g(Hb)/dL 01/21/2019 1:48 PM CDT [facility] VA SINGLE BREATH POST 5.54 L 01/21/2019 1:48 PM CDT [facility] VC MAX POST 3.26 L 01/21/2019 1:48 PM CDT [facility] PostFVC 3.25 L 01/21/2019 1:48 PM CDT [facility] SUITE PostFEV1 2.11 L 01/21/2019 1:48 PM CDT [facility] SUITE FEV1/FVC POST 64.80 % 01/21/2019 1:48 PM CDT [facility] SUITE FEF 25-75 % POST 1.09 L/s 01/21/2019 1:48 PM CDT [facility] SUITE PEF POST 7.51 L/s 01/21/2019 1:48 PM CDT [facility] SUITE FET POST 10.17 sec 01/21/2019 1:48 PM [facility] VC MAX PRE 3.54 L 01/21/2019 1:48 PM CDT [facility] SUITE FVC 3.54 L 01/21/2019 1:48 PM CDT [facility] SUITE FEV1 2.34 L 01/21/2019 1:48 PM CDT [facility] SUITE FEV1/FVC 65.94 % 01/21/2019 1:48 PM CDT [facility] SU[facility] PSP46-13% 1.31 L/s 01/21/2019 1:48 PM CDT [facility] SUITE PEF PRE 6.61 L/s 01/21/2019 1:48 PM CDT [facility] SUITE FET PRE 9.96 sec 01/21/2019 1:48 PM CDT [facility] SUITE MVV 71.93 L/min 01/21/2019 1:48 PM CDT [facility] SUITE SUBSTANCE POST NaN 01/21/2019 1:48 PM CDT [facility] SUITE DOSE POST NaN 01/21/2019 1:48 PM CDT [facility] % PRED VC MAX 101.21 % 01/21/2019 1:48 PM CDT [facility] FVC% 101.21 % 01/21/2019 1:48 PM CDT [facility] SU[facility] FEV1% 87.82 % 01/21/2019 1:48 PM CDT [facility] SUITE % PRED FEV1/FVC 86.46 % 01/21/2019 1:48 PM CDT [facility] SUITE % PRED FEF 25-75% 64.20 % 01/21/2019 1:48 PM CDT [facility] SUITE % PRED PEF 93.24 % 01/21/2019 1:48 PM CDT [facility] SUITE PRED VC MAX 3.50 L 01/21/2019 1:48 PM CDT [facility] SUITE PRED FVC 3.50 L 01/21/2019 1:48 PM CDT [facility] PRED FEV 1 2.66 L 01/21/2019 1:48 PM CDT [facility] PRED FEV1/FVC 76.27 % 01/21/2019 1:48 PM CDT [facility] PRED FEF 25-75% 2.03 L/s 01/21/2019 1:48 PM CDT [facility] PRED PEF 7.09 L/s 01/21/2019 1:48 PM CDT [facility] 01/21/2019 9:02 AM CDT us Neha Gardner M.D. PFT ORDERABLES Final Result Performing Organization Address [facility] Co de Phone Number [facility] NA * PET Cardiac Perfusion Rest and Stress (01/07/2019 3:14 PM CDT) 01/07/2019 2:55 PM CDT Narrative [facility] - 01/07/2019 4:53 PM CDT See PDF For Result us Neha Gardner M.D. IMG [place] PROCEDURES Final Resu lt Performing Organization Address [facility] Co de Phone Number [facility] NA * CT Cardiac Angiogram with Coronary Arteries with IV Contrast (01/07/2019 10:43 AM CDT) Anatomical Region Laterality Modality Cardiac, Cardiovascular RST LOS, Thoracic ARZ LOS, Cardiovascular FLA LOS N/A Computed Tomography 01/07/2019 2:08 PM CDT Impressions 01/07/2019 2:55 PM CDT 1. No evidence of sternal dehiscence or mediastinitis. 2. Patent coronary artery bypass grafts. 3. 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 NEZ PERCE CORONARY ARTERIES: Mild calcification of the left [...] graft to right coronary artery: Widely patent. NEZ PERCE CORONARY ARTERIES: Mild calcification of the left [...] Patent coronary artery bypass grafts. 3. 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 LAB BLOOD ADD-ON Final Resul t Performing Organization Address City/[facility]/ZIP Co de Phone Number [facility] [address] * (TTE) 2D ECHO DOPPLER COLOR AND CONTRAST (12/30/2018 8:04 PM CDT) Pathologist [facility] Ejection Fraction 42 MC CV EIMS Sinus [...] below. See PDF For Result Procedure Note Mirian Wren M.B.B.S., Ph.D. - 12/30/2018 For the [...] Panel with Creatinine Shereen (06/12/2017 6:50 AM [employer]) Only the most recent of15 resultswithin the time period is included. Chloride, S 90(L) 98 - 107 MMOL/L [facility] BUN (Blood Urea Nitrogen), S 39(H) 8 - 24 MG/DL [facility] HX Bicarbonate, P/S 31(H) 22 - 29 MMOL/L [facility] Creatinine, Shereen 2.5(H) 0.7 - 1.2 MG/DL [facility] Sodium, P 134(L) 135 - 145 MMOL/L [facility] Potassium, P 3.6 3.6 - 5.2 MMOL/L [facility] Glucose, S 137 70 - 140 MG/DL [facility] Anion Gap 13 7 - 15 [facility] 06/12/2017 6:50 AM [employer] 06/12/2017 6:50 AM [employer] us Elvin Moreno M.D. LAB BLOOD ADD-ON Final Resu lt Performing Organization Address City/[facility]/ZIP Co de Phone Number [facility] [address] * Glucose, POCT (06/10/2017 5:36 PM [employer]) Only the most recent of44 resultswithin the time period is included. Last Intake 3-4 hours [facility] Glucose, POCT, B 106 70 - 140 MG/DL [facility] Sample Site, Blood Gas, POCT Capillary [facility] 06/10/2017 5:36 PM [employer] 06/10/2017 5:36 PM [employer] Historical Provider LAB POCT ORDERABLES-MANUAL F inal Result Performing Organization Address City/[facility] Co de Phone Number [facility] [address] * DX Chest Portable 1 View (06/10/2017 9:22 AM [employer]) Only the most recent of9 resultswithin the time period is included. Anatomical Region Laterality Modality Chest N/A Radiographic Ayana ging 06/10/2017 9:22 AM [employer] Impressions 06/10/2017 9:45 AM [employer] Improved aeration of the lungs since 06/09/17 with decreased left basilar atelectasis. Right basilar chest tube. No pneumothorax. Mild right basilar atelectasis. Left PICC tip at the SVC/RA junction. Sternotomy. Mild pulmonary vascular congestion. Electronically signed by: Neha Coronel MD [id number] 10-Jun-2017 09:45 Narrative 06/10/2017 9:45 AM [employer] 10-Jun-2017 09:22:00 Exam: Portable-Chest Indications: S/P CVS [...] congestion. Electronically signed by: Neha Coronel MD [id number] 10-Jun-2017 09:45 us Maribell Roberts APRN, C.N.P., M.S.N. IMG DIAGNOS TIC IMAGING PROCEDURES Final Result * DX Abdomen Portable Anterior Posterior 1 View (06/09/2017 6:25 PM [employer]) Anatomical Region Laterality Modality Abdomen N/A Radiographic Ayana ging 06/09/2017 6:25 PM [employer] Impressions 06/09/2017 8:19 PM [employer] Nonobstructive bowel gas pattern with gas seen in the distal colon and rectum. 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 Electronically signed by: Kita Marin MD [phone] 09-Jun-2017 18:58 I have reviewed the films/images and agree with the above interpretation. Electronically signed by: Wesley Brock M.D. [phone] 09-Jun-2017 20:19 Narrative 06/09/2017 8:19 PM [employer] 09-Jun-2017 18:25:00 Exam: Portable-Abdomen Indications: R/O ileus [...] SIjoints. Electronically signed by: Kita Marin MD [phone] 09-Jun-2017 18:58 I have reviewed the films/images and agree with the above interpretation. Electronically signed by: Wesley Brock M.D. [phone] 09-Jun-2017 20:19 Maribell Roberts APRN, C.N.P., M.S.N. IMG DIAGNOS TIC IMAGING PROCEDURES Final Result * Phosphorus Inorganic (06/09/2017 6:18 AM [employer]) Phosphorus (Inorganic), S 4.1 2.5 - 4.5 MG/DL [facility] Comment:Drawn From PICC 06/09/2017 6:18 AM [employer] 06/09/2017 6:18 AM [employer] Narrative [facility] - 06/09/2017 8:57 AM [employer] Drawn From PICC us Elvin Moreno M.D. LAB BLOOD ADD-ON Final Resu lt Performing Organization Address [facility] Co de Phone Number [facility] [address] * (ABNORMAL) Calcium, Total (06/09/2017 6:18 AM [employer]) Calcium, Total, S 8.3(L) 8.9 - 10.1 MG/DL [facility] Comment:Drawn From PICC 06/09/2017 6:18 AM [employer] 06/09/2017 6:18 AM [employer] Narrative [facility] - 06/09/2017 8:57 AM [employer] Drawn From PICC us Elvin Moreno M.D. LAB BLOOD ADD-ON Final Resu lt Performing Organization Address City/[facility]/ZIP Co de Phone Number [facility] [address] * Sodium, Random, Urine (06/08/2017 11:13 PM [employer]) Sodium, Random, U 32 Interpret with other; clinical data. MMOL/L [facility] 06/08/2017 11:1 3 PM [employer] 06/08/2017 11:13 PM [employer] Getachew Dunaway APRN.N.P., M.S.N. LAB URINE O RDERABLES Final Result Performing Organization Address City/[facility]/ZIP Co de Phone Number [facility] [address] * (ABNORMAL) Microscopic Manual (06/08/2017 11:13 PM [employer]) Dysmorphic RBC <25 <25 % [facility] WBC 1-3 1-3 (Males); 1-10 (Females) /HPF [facility] Microscopy Abnormal [facility] Blood 21-30(A) <3 /HPF [facility] Casts, Hyaline 1-3 /LPF [facility] 06/08/2017 11:1 3 PM [employer] 06/08/2017 11:13 PM [employer] Getachew Dunaway APRN.N.P., M.S.N. LAB URINE O RDERABLES Final Result Performing Organization Address [facility]/ZIP Co de Phone Number [facility] [address] * Creatinine, Random, Urine (06/08/2017 11:13 PM [employer]) Creatinine, Random, U 52 Used to normalize other; values. MG/DL [facility] 06/08/2017 11:1 3 PM [employer] 06/08/2017 11:13 PM [employer] Getachew Dunaway APRN.N.P., M.S.N. LAB URINE O RDERABLES Final Result [facility] [address] * Chloride, Random, Urine (06/08/2017 11:13 PM [employer]) Chloride, Random, U 31 Interpret with other; clinical data. MMOL/L [facility] 06/08/2017 11:1 3 PM [employer] 06/08/2017 11:13 PM [employer] Getachew Dunaway APRN.N.P., M.S.N. LAB URINE O RDERABLES Final Result [facility] [address] * (ABNORMAL) Urinalysis with Microscopic (06/08/2017 11:13 PM [employer]) pH, 24 HR, U 5.2 4.5 - 8.0 [facility] Comment: ADDITIONAL INFORMATION This test was developed and its performance characteristics determined by [facility] in a manner consistent with CLIA requirements. This test has not been cleared or approved by the U.S. Food and Drug Administration. Appearance Normal Normal [facility] Source Void [facility] Osmolality, 24 HR, U 264 150 - 1150 MOSM/KG [facility] Glucose 3 0 - 15 MG/DL [facility] Protein, U 10 <26 MG/DL [facility] Comment: ADDITIONAL INFORMATION On 12/26/2016 the total protein assay method changed resulting in approximately a 15% increase in protein values. Protein/Osmolality 0.38 <0.42 RATIO [facility] Comment: ADDITIONAL INFORMATION On 12/26/2016 the total protein assay method changed resulting in approximately a 15% increase in protein values. Predicted 24 Hr Protein 373 MG/24 H [facility] Predicted Range 118-1176 MG/24 H [facility] Hemoglobin, QL Moderate( A) Negative [facility] 06/08/2017 11:1 3 PM [employer] 06/08/2017 11:13 PM [employer] us Maribell Roberts APRN, C.N.P., M.S.N. LAB URINE O RDERABLES Final Result [facility] [address] [place] [address], [facility] * DX Chest Portable Post PICC Placement 1 View (06/08/2017 6:35 PM [employer]) Anatomical Region Laterality Modality Chest N/A Radiographic Ayana ging 06/08/2017 6:35 PM [employer] Impressions 06/08/2017 8:47 PM [employer] Left PICC with tip in the upper SVC. Electronically signed by: Nereyda Hilton MD [phone] 08-Jun-2017 18:39 I have reviewed the films/images and agree with the above interpretation. Electronically signed by: Wesley Brock M.D. [phone] 08-Jun-2017 20:47 Narrative 06/08/2017 8:47 PM [employer] 08-Jun-2017 18:35:00 Exam: Portable-Chest PICC Indications: Left - PICC Placement ORIGINAL REPORT - 08-Jun-2017 18:39:00 EXAM: Chest; 1 view Procedure Note Wesley Brock M.B., Ch.B. - 09/26/2017 08-Jun-2017 18:35:00 Exam: Portable-Chest PICC Indications: Left - PICC Placement ORIGINAL REPORT - 08-Jun-2017 18:39:00 EXAM: Chest; 1 view IMPRESSION: Left PICC with tip in the upper SVC. Electronically signed by: Nereyda Hilton MD [phone] 08-Jun-2017 18:39 I have reviewed the films/images and agree with the above interpretation. Electronically signed by: Wesley Brock M.D. [id number] 08-Jun-2017 20:47 Sherly Hay R.N. IMG DIAGNOSTIC IMAGING [place] OCEDURES Final Result * Cortrosyn Stim/Antoni (06/07/2017 9:02 AM [employer]) [facility] Cortisol, 60 Min 48 Not applicable MCG/DL [facility] Cortisol, Baseline 21 Not applicable MCG/DL [facility] Cortisol, 30 Min 42 Not applicable MCG/DL [facility] 06/07/2017 9:02 AM [employer] 06/07/2017 9:02 AM [employer] Elvin Moreno M.D. LAB BLOOD NON ADD-ON Final Result Performing Organization Address City/State/[facility] Co de Phone Number [facility] [address] * (ABNORMAL) Blood Gas with Coox, Arterial (06/07/2017 5:47 AM [employer]) Only the most recent of11 resultswithin the time period is included. [facility] Arterial Sample Site Art Line [facility] FIO2 0.53 .21=AIR [facility] pH 7.46(H) 7.35 - 7.45 PH [facility] Base Excess 5(H) -2 - 2 MMOL/L [facility] O2Hb 97.4 94.0 - 98.0 % [facility] COHb 1.1 <3.0 % [facility] Device NC [facility] Spont. breaths/min 18 [facility] pO2 121(H) 80 - 100 MM HG [facility] pCO2 40 35 - 45 MM HG [facility] HCO3 29(H) 22 - 26 MMOL/L [facility] Hb 9.7(L) 13.5 - 17.5 G/DL [facility] MetHb <1.0 <1.6 % [facility] CtO2 13.5(L) 21.0 - 23.0 VOL % [facility] 06/07/2017 5:47 AM [employer] 06/07/2017 5:47 AM [employer] Elvin Moreno M.D. LAB BLOOD NON ADD-ON Final Result Performing Organization Address [facility] Co de Phone Number [facility] [address] * ABORh, RBC (06/06/2017 8:22 AM [employer]) Only the most recent of3 resultswithin the time period is included. Pathologist [facility] HXABO/RH BLOOD TYPE O Pos [facility] 06/06/2017 8:22 AM [employer] Historical Provider LAB BLOOD BANK TEST ORDERABL ES Final Result Performing Organization Address [facility] de Phone Number [facility] [address] * Prepare Red Blood Cells (06/06/2017 8:22 AM [employer]) Pathologist [facility] HXRBC # UNITS TRANSFUSED 1 [facility] HXRBC UNIT INFO RBC [facility] Comment: Unit Blood Type O Pos Unit Number [id number] Component Type Red Blood Cells - -3 Leukoreduced Issue Date/Time [id number] 06/06/2017 8:22 AM [employer] Historical Provider BLOOD BANK PRODUCT ORDERABLE S Final Result Performing Organization Address [facility] de Phone Number [facility] [address] * Antibody Screen, RBC (06/06/2017 8:22 AM [employer]) Only the most recent of2 resultswithin the time period is included. Pathologist [facility] Antibody Screen Negative [facility] 06/06/2017 8:22 AM [employer] Historical Provider LAB BLOOD BANK TEST ORDERABL ES Final Result Performing Organization Address City/[facility]/ZIP Co de Phone Number [facility] [address] * Lactate (06/05/2017 4:51 PM [employer]) Only the most recent of7 resultswithin the time period is included. Lactate, P 0.8 0.6 - 2.3 MMOL/L [facility] 06/05/2017 4:51 PM [employer] 06/05/2017 4:51 PM [employer] Pete Baker P.A.-C. LAB BLOOD NON ADD-ON Fi nal Result Performing Organization Address [facility] Co de Phone Number [facility] [address] * (ABNORMAL) ABG and Lytes, POCT (06/05/2017 2:51 PM [employer]) Arterial Sample Site Artline [facility] Comment: ADDITIONAL INFORMATION Performed at the Point of Care pH 7.41 7.35 - 7.45 [facility] Comment: ADDITIONAL INFORMATION Performed at the Point of Care Base Excess 3(H) -2 - 2 MMOL/L [facility] Comment: ADDITIONAL INFORMATION Performed at the Point of Care HCO3 27(H) 21 - 25 MMOL/L [facility] Comment: ADDITIONAL INFORMATION Performed at the Point of Care Sodium, B 138 135 - 145 MMOL/L [facility] Comment: ADDITIONAL INFORMATION Performed at the Point of Care Potassium, B 4.5 3.6 - 5.2 MMOL/L [facility] Comment: ADDITIONAL INFORMATION Performed at the Point of Care Calcium, Ionized, B 4.70 4.65 - 5.30 MG/DL [facility] Comment: ADDITIONAL INFORMATION Performed at the Point of Care pH 7.41 7.35 - 7.45 [facility] Comment: ADDITIONAL INFORMATION Performed at the Point of Care Glucose, POCT, B 127 70 - 140 MG/DL [facility] Comment: ADDITIONAL INFORMATION Performed at the Point of Care Hematocrit, POCT, B 23.0(L) 38.8 - 50.0 % [facility] Comment: ADDITIONAL INFORMATION Performed at the Point of Care pCO2 43 35 - 45 MM HG [facility] Comment: ADDITIONAL INFORMATION Performed at the Point of Care pO2 60(L) 70 - 100 MM HG [facility] Comment: ADDITIONAL INFORMATION Performed at the Point of Care 06/05/2017 2:51 PM [employer] 06/05/2017 2:51 PM [employer] Historical Provider LAB BLOOD NON ADD-ON Final R esult Performing Organization Address City/[facility]/ZIP Co de Phone Number [facility] [address] * (ABNORMAL) Electrolyte (Chem 4) Panel (06/05/2017 12:35 PM [employer]) Sodium, S 140 135 - 145 MMOL/L [facility] Potassium, S 4.9 3.6 - 5.2 MMOL/L [facility] Creatinine 2.1(H) 0.8 - 1.3 MG/DL [facility] BUN (Blood Urea Nitrogen), S 27(H) 8 - 24 MG/DL [facility] Anion Gap 16(H) 7 - 15 [facility] Glucose, S 114 70 - 140 MG/DL [facility] Chloride, S 99 98 - 107 MMOL/L [facility] HX Bicarbonate, P/S 25 22 - 29 MMOL/L [facility] 06/05/2017 12:3 5 PM [employer] 06/05/2017 12:35 PM [employer] Elvin Moreno M.D. LAB BLOOD ADD-ON Final Resu lt Performing Organization Address City/[facility]/ZIP Co de Phone Number [facility] [address] * APTT (Activated Partial Thromboplastin Time) (06/05/2017 3:49 AM [employer]) Only the most recent of5 resultswithin the time period is included. APTT, P 27 25 - 37 SEC [facility] 06/05/2017 3:49 AM [employer] 06/05/2017 3:49 AM [employer] Maria Del Carmen Bruce APRN C.N.P. LAB BLOOD ADD-ON Final Result Performing Organization Address [facility] Co de Phone Number [facility] [address] * (ABNORMAL) Fibrinogen (06/04/2017 11:07 PM [employer]) Only the most recent of4 resultswithin the time period is included. Fibrinogen, P 198(L) 200 - 393 MG/DL [facility] 06/04/2017 11:0 7 PM [employer] 06/04/2017 11:07 PM [employer] us Hugo Aj PSashaA.ClarenceC. LAB BLOOD ADD-ON Final Result Performing Organization Address [facility] de Phone Number [facility] [address] * ACT (Activated Clotting Time), POCT (06/04/2017 11:06 PM [employer]) Only the most recent of8 resultswithin the time period is included. Activated Clotting Time, POCT 131 84 - 139 SEC [facility] 06/04/2017 11:0 6 PM [employer] 06/04/2017 11:06 PM [employer] Historical Provider LAB POCT ORDERABLES - DEVICE Final Result Performing Organization Address [facility] de Phone Number [facility] [address] * Potassium, Blood (06/04/2017 8:19 PM [employer]) Only the most recent of4 resultswithin the time period is included. Potassium, B 4.8 3.6 - 5.2 MMOL/L [facility] Comment:[place] 06/04/2017 8:19 PM [employer] 06/04/2017 8:19 PM [employer] Narrative [facility] - 06/04/2017 8:22 PM [employer] [place]wn [place] us Elvin Moreno M.D. LAB BLOOD NON ADD-ON Final Result Performing Organization Address City/[facility]/ZIP Co de Phone Number [facility] [address] * (ABNORMAL) Glucose, Whole Blood (06/04/2017 8:19 PM [employer]) Only the most recent of4 resultswithin the time period is included. Glucose, S 168(H) 70 - 140 MG/DL [facility] Comment:[place] 06/04/2017 8:19 PM [employer] 06/04/2017 8:19 PM [employer] Narrative [facility] - 06/04/2017 8:22 PM [employer] [place]wn [place] us Elvin Moreno M.D. LAB BLOOD ADD-ON Final Resu lt Performing Organization Address [facility] Co de Phone Number [facility] [address] * Sodium (06/04/2017 8:19 PM [employer]) Only the most recent of9 resultswithin the time period is included. Sodium, B 141 135 - 145 MMOL/L [facility] Comment:[place] 06/04/2017 8:19 PM [employer] 06/04/2017 8:19 PM [employer] Narrative [facility] - 06/04/2017 8:23 PM [employer] [place]wn [place] us Elvin Moreno M.D. LAB BLOOD ADD-ON Final Resu lt Performing Organization Address City/[facility]/ZIP Co de Phone Number [facility] [address] * Calcium, Ionized (06/04/2017 8:19 PM [employer]) Only the most recent of5 resultswithin the time period is included. Calcium, Ionized, B 5.08 4.65 - 5.30 MG/DL [facility] Comment:[place] 06/04/2017 8:19 PM [employer] 06/04/2017 8:19 PM [employer] Narrative [facility] - 06/04/2017 8:22 PM [employer] [place] Elvin Moreno M.D. LAB BLOOD NON ADD-ON Final Result Performing Organization Address City/[facility]/ZIP Co de Phone Number [facility] [address] * (ABNORMAL) Hemoglobin (HGB), POCT (06/04/2017 8:17 PM [employer]) Only the most recent of2 resultswithin the time period is included. Pathologist [facility] Hemoglobin, B 12.5(L) 13.5 - 17.5 G/DL [facility] 06/04/2017 8:17 PM [employer] 06/04/2017 8:17 PM [employer] Historical Provider LAB POCT ORDERABLES - DEVICE Final Result Performing Organization Address [facility] Co de Phone Number [facility] [address] * (ABNORMAL) Platelet Count (06/04/2017 12:37 PM W[employer]ING [employer]) [facility] HX Platelet Count 133(L) 150 - 450 X10(9)/L [facility] Comment:[place] 06/04/2017 12:3 7 PM [employer] 06/04/2017 12:37 PM [employer] Narrative [facility] - 06/04/2017 12:47 PM [employer] [place]wn [place] Historical Provider LAB BLOOD ADD-ON Final Resul t Performing Organization Address City/[facility]/ZIP Co de Phone Number [facility] [address] * HX intra-Op Auto Tx (06/04/2017 10:45 AM [employer]) HXRBC # UNITS TRANSFUSED 1.25 [facility] HXRBC UNIT INFO RBC [facility] Comment: Component Type Intraoperative Salvaged RBC Unit Number =[id number] Issue Date/Time [id number] Component Type Intraoperative Salvaged RBC Unit Number =[id number] Issue Date/Time [id number] 06/04/2017 10:4 5 AM [employer] us Historical Provider LAB HISTORICAL ORDERS Final Result Performing Organization Address City/[facility]/ZIP Co de Phone Number [facility] [address] * ANESTHESIOLOGY IMAGE EXAM (06/04/2017 7:50 AM [employer]) 06/04/2017 7:49 AM [employer] Narrative [facility] - 06/04/2017 8:55 AM [employer] This order has been created and auto-finalized to support the import of images acquired without order. The clinical documentation to support these images can be found on the encounter that produced images. us Provider Not In System IMG NON RAD IMAGING PROCE DURES Final Result Performing Organization Address [facility] Co de Phone Number [facility] NA * Echo Transesophageal (JOSTIN) (06/04/2017 7:37 AM [employer]) Anatomical Region Laterality Modality Echocardiography 06/04/2017 7:37 AM [employer] us Historical Provider CV ECHO PROCEDURES Final Res ult * Echocardiology Image Exam (06/04/2017 6:45 AM [employer]) Only the most recent of4 resultswithin the time period is included. Anatomical Region Laterality Modality Other 06/04/2017 6:45 AM [employer] Addenda Addendum by Provider, Dianna Samuel on 06/04/2017 6:45 AM [employer] ECHO^^^MCR INTRAOP 06/04/2017 06:45:08 INTRAOP us Historical Provider IMG NON RAD IMAGING PROCEDUR ES Final Result * US Lower Extremity Veins (06/01/2017 12:09 PM [employer]) Anatomical Region Laterality Modality Vascular, Lower Extremity Ultras ound 06/01/2017 12:0 9 PM [employer] Impressions 06/01/2017 12:14 PM [employer] Both great saphenous veins are suitable in [...] [id number] 01-Jun-2017 12:14 Narrative 06/01/2017 12:14 PM [employer] 01-Jun-2017 12:09:00 Exam: B US Lower Extremity [...] Upper Extremity Arteries Graft (06/01/2017 12:08 PM [employer]) Anatomical Region Laterality Modality Ultrasound 06/01/2017 12:0 8 PM [employer] Impressions 06/01/2017 12:14 PM [employer] 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 The radial arteries should NOT be used for graft purposes. Electronically signed by: Bev Avendano MD. [id number] 01-Jun-2017 12:14 Narrative 06/01/2017 12:14 PM [employer] 01-Jun-2017 12:08:00 Exam: B US Upper Extrem [...] BUN (Blood Urea Nitrogen) (06/01/2017 10:37 AM [employer]) Only the most recent of3 resultswithin the time period is included. BUN (Blood Urea Nitrogen), S 21 8 - 24 MG/DL [facility] 06/01/2017 10:3 7 AM [employer] 06/01/2017 10:37 AM [employer] us Kirsty Pennington P.A.-C. LAB BLOOD ADD-ON Final R esult Performing Organization Address [facility] Co de Phone Number [facility] [address] * (ABNORMAL) Potassium (06/01/2017 10:37 AM [employer]) Only the most recent of5 resultswithin the time period is included. Potassium, S 5.3(H) 3.6 - 5.2 MMOL/L [facility] 06/01/2017 10:3 7 AM [employer] 06/01/2017 10:37 AM [employer] us Kirsty FryeCSasha LAB BLOOD ADD-ON Final R esult Performing Organization Address [facility] de Phone Number [facility] [address] * Creatinine with Estimated GFR (MDRD) (06/01/2017 10:37 AM [employer]) Only the most recent of5 resultswithin the time period is included. Creatinine 1.3 0.8 - 1.3 MG/DL [facility] 06/01/2017 10:3 7 AM [employer] 06/01/2017 10:37 AM [employer] us Kirsty FryeCSasha LAB BLOOD ADD-ON Final R esult Performing Organization Address [facility] de Phone Number [facility] [address] * Cardiology Image Exam (05/08/2017 11:15 AM [employer]) Only the most recent of2 resultswithin the time period is included. Anatomical Region Laterality Modality Other 05/08/2017 11:1 5 AM [employer] Addenda Addendum by Provider, Dianna Samuel on 05/08/2017 11:15 AM [employer] CARD^^^MCR CATH 05/08/2017 11:15:04 CATH Historical Provider IMG NON RAD IMAGING PROCEDUR ES Final Result * Cardiac Catheterization (05/08/2017 11:08 AM [employer]) Anatomical Region Laterality Modality Other 05/08/2017 11:0 8 AM [employer] Historical Provider CV CARDIAC CATH PROCEDURES F inal Result * (ABNORMAL) Coenzyme Q10, Total, P (05/08/2017 7:52 AM W[employer]) Interpretation . [facility] Comment: In this sample, the total coenzyme Q10 concentration was elevated. This finding is likely related to supplementation. Other possible causes include cardiovascular diseases or hypercholesterolemia. ADDITIONAL INFORMATION High-Performance Liquid Chromatography (HPLC) with Electrochemical Detection This test was developed and its performance characteristics determined by [facility] in a manner consistent with CLIA requirements. This test has not been cleared or approved by the U.S. Food and Drug Administration. HX CoQ10 Total-[place] 2901(H) 433 - 1532 MCG/L [facility] Reviewed by . [facility] Comment:Deuce Gaitan 05/08/2017 7:52 AM [employer] 05/08/2017 7:52 AM [employer] Neha Gardner M.D. LAB BLOOD ADD-ON Final Resul t [facility] [address] [place] [address], [facility] * 25-Hydroxyvitamin D2 and D3 (05/08/2017 7:52 AM W[employer]) 25-Hydroxy D2 <4.0 NG/ML [facility] 25-Hydroxy D3 44 NG/ML [facility] 25-Hydroxy D Total 44 SeeComment NG/ML [facility] Comment: REFERENCE VALUE 25-HYDROXY D TOTAL (D2+D3) Optimum levels in the healthy population are 20-50, patients with bone disease may benefit from higher levels within this range. ADDITIONAL INFORMATION This test was developed and its performance characteristics determined by [facility] in a manner consistent with CLIA requirements. This test has not been cleared or approved by the U.S. Food and Drug Administration. 05/08/2017 7:52 AM [employer]ING [employer] 05/08/2017 7:52 AM [employer] us Neha Gardner M.D. LAB BLOOD ADD-ON Final Resul t Performing Organization Address [facility] Co de Phone Number [facility] [address] * Alkaline Phosphatase (05/08/2017 7:52 AM W[employer]) Alkaline Phosphatase, S 67 45 - 115 U/L [facility] 05/08/2017 7:52 AM [employer] 05/08/2017 7:52 AM W[employer] us Neha Gardner M.D. LAB BLOOD ADD-ON Final Resul t Performing Organization Address [facility] Co de Phone Number [facility] [address] * Lipase (05/08/2017 7:52 AM W[employer]ING [employer]) Lipase, S 49 10 - 73 U/L [facility] 05/08/2017 7:52 AM [employer] 05/08/2017 7:52 AM [employer] us Neha Gardner M.D. LAB BLOOD ADD-ON Final Resul t Performing Organization Address [facility] Co de Phone Number [facility] [address] * Bilirubin, Total (05/08/2017 7:52 AM W[employer]) Bilirubin, Total, S 1.0 <=1.2 MG/DL [facility] 05/08/2017 7:52 AM [employer] 05/08/2017 7:52 AM [employer] us Neha Gardner M.D. LAB BLOOD ADD-ON Final Resul t Performing Organization Address [facility] de Phone Number [facility] [address] * Glucose, Fasting (05/04/2017 8:26 AM CDT) Only the most recent of2 resultswithin the time period is included. Last Intake 14 HR [facility] Glucose, P 89 70 - 100 MG/DL [facility] 05/04/2017 8:26 AM CDT 05/04/2017 8:26 AM CDT Result Sarah Gardner M.D. LAB BLOOD NON ADD-ON Final R esult Performing Organization Address [facility] de Phone Number [facility] [address] * Echo Transthoracic (TTE) (12/13/2016 10:34 AM CDT) Anatomical Region Laterality Modality Echocardiography 12/13/2016 10:3 4 AM CDT Result Sarah Gardner M.D. CV ECHO PROCEDURES Final Res ult * DX Wrist 3+ Views (05/29/2016 8:22 AM [employer]) Only the most recent of4 resultswithin the time period is included. Anatomical Region Laterality Modality Radiographic Ayana ging 05/29/2016 8:22 AM [employer] Impressions 05/29/2016 8:33 AM [employer]ING [employer] Since 03/02/2016, interval removal of the percutaneous [...] [id number] 29-May-2016 08:33 Narrative 05/29/2016 8:33 AM [employer]ING [employer] 29-May-2016 08:22:00 Exam: R Wrist 3vw AP/Lat [...] DX Hand 2 Views (05/29/2016 8:22 AM W[employer]) Anatomical Region Laterality Modality Upper Extremity, Hand N/A Radiograph ic Imaging 05/29/2016 8:22 AM [employer] Impressions 05/29/2016 8:33 AM [employer] Since 03/02/2016, interval removal of the percutaneous [...] [id number] 29-May-2016 08:33 Narrative 05/29/2016 8:33 AM [employer]ING [employer] 29-May-2016 08:22:00 Exam: R Hand 2vw Indications: [...] DX Finger 2+ Views (05/29/2016 8:22 AM [employer]ING [employer]) Only the most recent of4 resultswithin the time period is included. Anatomical Region Laterality Modality Upper Extremity, Fingers N/A Radiogr aphic Imaging 05/29/2016 8:22 AM W[employer]ING R[employer] Impressions 05/29/2016 8:33 AM [employer]ING [employer] Since 03/02/2016, interval removal of the percutaneous [...] MD 29-May-2016 08:33 Narrative 05/29/2016 8:33 AM [employer]ING [employer] 29-May-2016 08:22:00 Exam: R Thumb 3vw AP/Lat/Obl [...] PM CDT) 03/21/2016 12:0 7 PM CDT [facility] - 03/21/2016 1:46 PM CDT (Please [...] Presented: About Your Nuclear Cardiology Stress Test ([id number]); Patient verbalized and demonstrated understanding.; Education Time in minutes: 15; MONITORING PERSONNEL: Primary Monitor: Sangeeta Alcaraz Polisher Balance Screwhead: Augustus Menard REFERRING PHYSICIAN: ANDREEA GARDNER III INTERPRETING PHYSICIAN: Amador Funez/Vinh Baxter Electronically signed by: Bev Funez MD. [id number] 21-Mar-2016 13:46 [facility] RADIOLOGY SYSTEM - 03/21/2016 1:46 PM CDT [...] ;Presented: About Your Nuclear Cardiology Stress Test ([id number]); Patientverbalized and demonstrated understanding.; Education Time in minutes: 15; MONITORING PERSONNEL: Primary Monitor: Sangeeta Alcaraz Polisher Balance Screwhead:Augustus Menard REFERRING PHYSICIAN: ANDREEA GARDNER III INTERPRETING PHYSICIAN: Amador Funez/Vinh Baxter Electronically signed by: Bev Funez MD. [id number] 21-Mar-2016 13:46 Neha Gardner M.D. IMG NM PROCEDURES Final Resu lt Performing Organization Address City/State/[facility] Co de Phone Number [facility] [address] [place] [address] * Sestamibi Scan (03/21/2016 9:39 AM CDT) [...] to the tip of the distal ulna. [id number] fixation across the comminuted fracture of the 5th metacarpal. Fracture line remains visible. Healing fracture of the base of the 3rd proximal phalanx and the 1st proximal phalanx. 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 Scattered degenerative changes throughout the hand and wrist, most marked at the 1st CMC joint where it is advanced. Soft tissue swelling. Electronically signed by: Ahsli Grayson MD [id number] 02-Mar-2016 09:58 Narrative 03/02/2016 [...] adjacent to the tip of the distal ulna.Uycfv-gpg-azcqy fixation across the comminuted fracture of the [...] Fixation-distal radius fracture; Right Open Reduction Internal Frhmsnoh-gfpugcj-usnoil fracture (first finger), [facility] 88 ORIGINAL REPORT - 14-Jan-2016 16:13:00 EXAM: [...] Reduction InternalFixation-distal radius fracture; Right Open Reduction VqgqhvtqMauxacza-uuzshah-pjzbpx fracture (first finger), [facility] 88 ORIGINAL REPORT - 14-Jan-2016 16:13:00 EXAM: [...] hand. Electronically signed by: Manpreet Ovalles MD [phone] 14-Jan-2016 00:15 I have reviewed the films/images [...] hand. Electronically signed by: Manpreet Ovalles MD [phone] 14-Jan-2016 00:15 I have reviewed the films/images and agree with the above interpretation. Electronically signed by: Linda Al MD. [phone] 14-Jan-2016 09:15 Ho Ferreira M.D. IMG CT [...] B 0 0 - 22 MM/1 H [facility] 10/11/2012 9:50 AM CDT 10/11/2012 9:50 AM CDT Neha Gardner M.D. LAB BLOOD ADD-ON Final Resul t [facility] [address] * LIZZIE (Antinuclear Antibodies) (10/11/2012 9:50 AM CDT) Antinuclear Ab, S 0.3 <=1.0 (Negative) U [facility] 10/11/2012 9:50 AM CDT 10/11/2012 9:50 AM CDT us Neha Gardner M.D. LAB BLOOD ADD-ON Final Resul t [facility] [address] [place] [address], [facility] Visit Diagnoses Diagnosis Start Date Coronary [...] 08/05/2022 Coronary Artery Disease With Stable Angina ([facility]) 08/07/2022 Coronary Artery Disease With [...] 05/29/2023 Coronary Artery Disease With Stable Angina ([facility]) 05/30/2023 Ectopy Ventricular 05/30/2023 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 Failure (HCC) 05/30/2023 Hyperlipidemia 05/30/2023 Coronary Artery Disease With Stable Angina ([facility]) 06/15/2023 Ectopy Ventricular 06/15/2023 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 Failure (HCC) 06/15/2023 Hyperlipidemia 06/15/2023 Coronary Artery Disease With Stable Angina ([facility]) 06/15/2023 Ectopy Ventricular 06/15/2023 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 Failure (HCC) 06/15/2023 Hyperlipidemia 06/15/2023 Ectopy Ventricular 06/15/2023 Cardiomyopathy Ischemic 06/15/2023 Coronary Artery Disease With Stable Angina ([facility]) 06/15/2023 Aneurysm Coronary Artery 06/15/2023 Hyperlipidemia 06/15/2023 Ectopy Ventricular 07/06/2023 Cardiomyopathy Ischemic 07/06/2023 Coronary Artery Disease With Stable Angina ([facility]) 07/06/2023 Ectopy Ventricular 07/06/2023 Cardiomyopathy Ischemic 07/06/2023 Coronary Artery Disease With Stable Angina ([facility]) 07/06/2023 Ectopy Ventricular 07/06/2023 Cardiomyopathy Ischemic 07/06/2023 Coronary Artery Disease With Stable Angina ([facility]) 07/06/2023 Ectopy Ventricular 08/09/2023 Cardiomyopathy Ischemic 08/09/2023 Coronary Artery Disease With Stable Angina ([facility]) 08/09/2023 Tachycardia Ventricular Nonsustained ([facility]) 08/09/2023 Coronary Artery Disease With [...] Defibrillator (ICD And AICD) 03/19/2024 Care Teams Piano Teacher Relationship Specialty Start Date End Date Elsewhere, Pcp PCP - General Internal Medicine 06/12/24
--- OUTSIDE RECORDS SUMMARY | 2024-07-07 19:40 | XMS_ITS | Encounter Summary ---
Author Organization [facility] Address [address] [place] [address] Care Team Providers Care [employer] Social Science Teacher Name Role Phone Elsewhere, Pcp Primary Care Provider Unavailabl e Reason for Referral * Outpatient (Routine) - Authorized Specialty Diagnoses / Procedures Referred By Contac t Referred To Contact Cardiovascular Disease Arminda Schaeffer M.D. [address] [place] [address] Phone: tel: fax: [facility] Referral ID Status Reason Start Date Expiration Date V isits Requested Visits Authorized [id number] Authorized 06/16/2024 12/16/2025 1 1 CER OPERATOR * Outpatient (Routine) - Authorized Specialty Diagnoses / Procedures Referred By Contac t Referred To Contact Diagnoses Presence Cardioverter- Defibrillator (ICD And AICD) Beat Premature Ventricular Procedures ECG 12 Lead Arminda Schaeffer M.D. [address] [place] [address] Phone: tel: fax: [facility] Referral ID Status Reason Start Date Expiration Date V isits Requested Visits Authorized [id number] Authorized 06/16/2024 06/16/2025 1 1 CER OPERATOR * Cardiovascular-Diagnostic (Routine) - Authorized Specialty Diagnoses / Procedures Referred By Alisia jones Referred To Contact Diagnoses Presence Cardioverter- Defibrillator (ICD And AICD) Beat Premature Ventricular Procedures Echo Transthoracic (TTE) Arminda Schaeffer M.D. [address] [place] [phone] Phone: tel: fax: [facility] Referral ID Status Reason Start Date Expiration Date V isits Requested Visits Authorized [id number] Authorized 06/16/2024 06/16/2025 1 1 CER OPERATOR Reason for Visit * Outpatient (Routine) - Closed Specialty Diagnoses / Procedures Referred By Alisia jones Referred To Contact Cardiovascular Disease Suzy Silver APRN, C.N.P., M.S.N. [address] [place] [phone] Phone: tel: fax: Arminda Schaeffer M.D. [address] [place] [phone] Phone: tel: fax: Referral ID Status Reason Start Date Expiration Date Visits Re quested Visits Authorized [id number] Closed 03/19/2024 09/18/2025 1 1 Encounter Details Date Type Department Care Team (Latest Contact Info) Description 06/16/2024 10:00 AM SPLICER OPERATOR Office Visit Department of Cardiovascular Medicine in [place], [place] [address] [place] [phone] Arminda Schaeffer M.D. [address] [place] [phone] Beat Premature Ventricular (Primary Dx); Presence Cardioverter- [...] often do you attend chur ch or jewish services? 1 to 4 times per year 03/18/2021 Do you belong to any clubs o r organizations such as anabaptist groups, unions, fraternal or athletic groups, or [...] and heating? Not hard at all 05/29/2023 [facility] [place] of Occupat ional Health - Occupational Stress [...] your living situation today? I have a [facility] place to live 05/29/2023 Education Answer Date Recorded What is the highest level of school you have completed or the highest degree you have received? 12th grade 03/18/2021 Sex and Gender Information Value Date Recorded Sex Assigned at Male 03/18/2021 9:25 AM CDT Legal Sex Male 6:03 AM SPLICER OPERATOR Gender Identity Male 12/20/2017 11:12 AM CDT Sexual Orientation Straight 12/20/2017 11 :12 AM CDT documented as of this encounter Last Filed Vital Signs Vital Sign Reading Time Taken Comments Blood Pressure 144/90 06/16/2024 9:51 AM SPLICER OPERATOR Pulse 70 06/16/2024 9:51 AM SPLICER OPERATOR Temperature - - Respiratory Rate - - Oxygen Saturation - - Inhaled Oxygen Concentration - - Weight 89.7 kg (197 lb 10.3 oz) 06/16/2024 9:51 AM SPLICER OPERATOR Height 165.9 cm (5' 5.32) 06/16/2024 9:51 AM CS T Body Mass Index 32.57 06/16/2024 9:51 AM SPLICER OPERATOR documented in this encounter Consult Notes * [...] device interrogation prior Arminda Schaeffer M.D. 06/16/2024 CER OPERATOR documented in this encounter Plan of Treatment [...] Ventricular Expected: 12/15/2024, Expires: 09/14/2025 Thyroid Function [facility] Routine Presence Cardioverter- Defibrillator (ICD And [...] Artery documented in this encounter Care Teams [employer] Social Science Teacher Relationship Specialty Start Date End Date Elsewhere, Pcp PCP - General Internal Medicine 06/12/24 documented as of this encounter
--- OUTSIDE RECORDS SUMMARY | 2024-07-07 19:40 | XMS_ITS | Encounter Summary ---
Author Organization [facility] Address [address] [place] [address] Care Team Providers Care Flute Teacher Name Role Phone Elsewhere, Pcp Primary Care Provider Unavailabl e Encounter Details Date Type Department Care Team (Latest Contact Info) Description 06/16/2024 8:16 AM KEY ACCOUNT REPRESENTATIVE - 06/16/2024 11:59 PM KEY ACCOUNT REPRESENTATIVE Hospital Encounter Department of Cardiovascular Diseases in [place], [place] [address] [place] [address] Aaron Galan M.D. [address] [place] [phone] Aftercare Cardiac Defibrillator Discharge Disposition: Home or [...] How often do you attend chur or hindu services? 1 to 4 times per year 03/18/2021 Do you belong to any clubs o r organizations such as judaism groups, unions, fraternal or athletic groups, or [...] and heating? Not hard at all 05/29/2023 [facility] of Occupat ional Health - Occupational Stress [...] your living situation today? I have a [facility] place to live 05/29/2023 Education Answer Date Recorded What is the highest level of school you have completed or the highest degree you have received? 12th grade 03/18/2021 Sex and Gender Information Value Date Recorded Sex Assigned at Male 03/18/2021 9:25 AM CDT Legal Sex Male 6:03 AM KEY ACCOUNT REPRESENTATIVE Gender Identity Male 12/20/2017 11:12 AM [...] INTERROGATION WITH PROGRAMMING Routine 06/16/2024 8:47 AM KEY ACCOUNT REPRESENTATIVE Aftercare Cardiac Defibrillator documented in this encounter Results * ICD DUAL CHAMBER INTERROGATION WITH PROGRAMMING (06/16/2024 8:47 AM KEY ACCOUNT REPRESENTATIVE) Date Time Interrogation Session [id number] [facility] Implantable Pulse Generator Law Libr[facility] Implantable Pulse Generator Type Defibrillator [facility] Implantable Pulse Generator Model D533 [facility] Implantable Pulse Generator Serial Number [id number] [facility] Implantable Pulse Generator Implant Date 20240319 [facility] Battery Status MATIAS FOUND [facility] Chandrakant Statistic RA Percent Paced 72.00 [facility] Chandrakant Statistic RV Percent Paced 4.00 [facility] Lead Channel Sensing Intrinsic Amplitude 4.700 [facility] Lead Channel Setting Sensing Sensitivity 0.25 [facility] Lead Channel Impedance Value 595 [facility] Lead Channel Pacing Threshold Amplitude 0.900 [facility] Lead Channel Pacing Threshold Pulse Width 0.4 [email or web address] Lead Channel Measurements Date and Time 20240616 [facility] Lead Channel Setting Pacing Amplitude [...] SYSTEM Chandrakant Setting Maximum Sensor Rate 120 [facility] Chandrakant Setting PAV Delay 180 [facility] Chandrakant Setting CARLOS Delay 150 [facility] Therapy Statistic Recent Shocks Delivered [...] 2 [facility] Implantable Lead Law Librarian [employer] [facility] Implantable Lead Model 7841-52 [facility] Implantable Lead Location Right At[employer] [facility] Implantable Lead Connection Status Connected [facility] Implantable Lead Serial Number [id number] [facility] Implantable Lead Implant Date 20240319 [facility] Implantable Lead Special Function Lead length: 52.00 cm [facility] Implantable Lead Law Librarian [employer] [facility] Implantable Lead Model 0672-59 [facility] Implantable Lead Location Right Ventricle [facility] Implantable Lead Connection Status Connected [facility] Implantable Lead Serial Number [id number] [facility] Implantable Lead Implant Date 20240319 [facility] Implantable Lead Special Function Lead length: 59.00 cm [facility] Anatomical Region Laterality Modality Echocardiography 06/20/2024 6:18 PM KEY ACCOUNT REPRESENTATIVE Impressions 06/20/2024 6:18 PM KEY ACCOUNT REPRESENTATIVE Encounter Impression: Title: Normal In-Office: With Events [...] Defibrillator documented in this encounter Care Teams Flute Teacher Relationship Specialty Start Date End Date Elsewhere, Pcp PCP - General Internal Medicine 06/12/24 documented as of this encounter
--- OUTSIDE RECORDS SUMMARY | 2024-07-07 19:40 | XMS_ITS ---
Author Organization [facility] Address [address] [place] [address] Care Team Providers Care Companion Caregiver Name Role Phone Unavailable Unavailable Unavailable Surgery Details Not on file Complications Check Surgery Details section. Procedure Estimated Blood Loss Check Surgery Details section. Procedure Findings Check Surgery Details section. Procedure Specimens Taken Check Surgery Details section.
--- OUTSIDE RECORDS SUMMARY | 2024-07-07 19:40 | XMS_ITS | Referral Summary ---
Author Organization [facility] Address [address] [place] [address] Care Team Providers Care Printed Circuit Board Panels Trimmer Name Role Phone Elsewhere, Pcp Primary Care Provider Unavailabl e Source Comments Patient records contain information from all sites at [facility]. For routine questions regarding patient records, call [phone] during business hours, M-F 8:00 AM - 5:00 PM Central Time. Record requests for emergency care only can be directed to [phone] at any time.[facility] Encounters Date Type Department Care Team Description 06/16/2024 8:16 AM ENGINEER GAS PUMPING STATION - 06/16/2024 11:59 PM ENGINEER GAS PUMPING STATION Hospital Encounter Department of Cardiovascular Diseases in [place], [place] [address] [place] [address] Aaron Galan M.D. Aftercare Cardiac Defibrillator Discharge Disposition: Home or Self Care 06/16/2024 10:00 AM ENGINEER GAS PUMPING STATION Office Visit Department of Cardiovascular Medicine in [place], [place] [address] [place] [address] Arminda Schaeffer M.D. Beat Premature Ventricular (Primary Dx); Presence Cardioverter- Defibrillator (ICD And AICD); Tachycardia Ventricular Nonsustained (HCC); Coronary Artery Disease With Stable Angina (HCC); Aneurysm Coronary Artery 06/12/2024 2:15 PM ENGINEER GAS PUMPING STATION Clinical Communication Virtual Review in [place], [place] [address] [place] [address] Pre-visit Intake 05/15/2024 Clinical Communication Department of Cardiovascular Medicine in [place], [place] [address] [place] [phone] Neha Gardner M.D. Update on blood pressures and med 05/01/2024 Documentation Department of Cardiovascular Medicine in [place], [place] [address] [place] [phone] Neha Gardner M.D. 05/01/2024 Orders Only Department of Cardiovascular Medicine in [place], [place] [address] [place] [phone] Neha Gardner M.D. from Last 3 Months Allergies Active Allergy Reactions Criticality Noted Date Comments Amlodipine Hives (Reselect Reaction) High 01/13/2021 Iodinated Contrast Media Anaphylaxis High 05/10/2016 Cardiac arrest during stent placement Iothalamate Sodium Other (see comments) High 022 Contrast Dye Eehagec-Obq-Dlc Reductase Inhibitors Other (see comments) Medium 01/03/2022 [...] often do you attend chur ch or judaism services? 1 to 4 times per year 03/18/2021 Do you belong to any clubs o r organizations such as congregation groups, unions, fraternal or athletic groups, or [...] and heating? Not hard at all 05/29/2023 [facility] of Occupat ional Health - Occupational Stress [...] your living situation today? I have a [facility] place to live 05/29/2023 Education Answer Date Recorded What is the highest level of school you have completed or the highest degree you have received? 12th grade 03/18/2021 Sex and Gender Information Value Date Recorded Sex Assigned at Male 03/18/2021 9:25 AM CDT Legal Sex Male 6:03 AM ENGINEER GAS PUMPING STATION Gender Identity Male 12/20/2017 11:12 AM CDT Sexual Orientation Straight 12/20/2017 11 :12 AM CDT Last Filed Vital Signs Vital Sign Reading Time Taken Comments Blood Pressure 144/90 06/16/2024 9:51 AM ENGINEER GAS PUMPING STATION Pulse 70 06/16/2024 9:51 AM ENGINEER GAS PUMPING STATION Temperature 36.8 C (98.2 F) 03/24/2024 5:10 PM CDT Respiratory Rate 21 06/12/2017 1:15 PM ENGINEER GAS PUMPING STATION Value from [employer]. Oxygen Saturation 96% 03/24/2024 5:1 0 PM CDT Inhaled Oxygen Concentration - - Weight 89.7 kg (197 lb 10.3 oz) 06/16/2024 9:51 AM ENGINEER GAS PUMPING STATION Height 165.9 cm (5' 5.32) 06/16/2024 9 :51 AM ENGINEER GAS PUMPING STATION Body Mass Index 32.57 06/16/2024 9:51 AM ENGINEER GAS PUMPING STATION Plan of Treatment Not on file Medical Devices Implanted Type Area Drier Belt Conveyor Device Identifier Shelf Expiration Date Model / Serial / Lot Conversions - Default Historical Implant Device Implanted:Qty: 2 on 01/14/2016 Ankle Implant Right: Ankle Description:Body Location - Ankle R. Device Status Text - Ankle Imp. Lead Rl4f Defib Biplr 59 - [id number] - [id number] Implanted:Qty: 1 on 03/19/2024 by Kemal Miller M.D. at [facility] Cardiac Lead N/A: Heart [employer] 01/29/2026 [id number] / [id number] / Lead Ppm Ingevity+ Biplr 52 - [id number] - [id number] Implanted:Qty: 1 on 03/19/2024 by Kemal Miller M.D. at [facility] Cardiac Lead N/A: Heart [employer] 01/29/2026 [id number] / [id number] / Variax-Screw Lock Cross Pin 2.3x 8 - [id number] [id number] Implanted:Qty: 2 on 01/14/2016 Hardware e.g. pins/screws/rods Taylor Description:Device Manufactu rer - Taylor Quynh.. Device Status Text - [id number]. Trimed-Screw Andrés. 3.5mm X 35mm - Renee [id number] Implanted:Qty: 1 on 01/14/2016 Hardware e.g. pins/screws/rods [employer]Med Inc Description:Device Manufactu rer - Trimed Inc.. Device Status Text - [id number]. Variax-Screw Lock Cross Pin 2.3x13 - Renee [id number] Implanted:Qty: 1 on 01/14/2016 Hardware e.g. pins/screws/rods Polina Description:Device Manufactu rer - Polina Quynh.. Device Status Text - [id number]. Variax-Screw Lock Cross Pin 2.3x11 - Renee [id number] Implanted:Qty: 1 on 01/14/2016 Hardware e.g. pins/screws/rods Taylor Description:Device Manufactu rer - Polina Quynh.. Device Status Text - HARDWARE-04397. Variax-Plate 2.3mm Profyle T Ji 6ho - Renee [id number] Implanted:Qty: 1 on 01/14/2016 Hardware e.g. pins/screws/rods Polina Description:Device Manufactu rer - Taylor Quynh.. Device Status Text - HARDWARE-845504. Icd Rsn Dr 0.99x5.37x7.38 - [id number] - [id number] Implanted:Qty: 1 on 03/19/2024 by Kemal Miller M.D. at [facility] Implant Cardiac Defibrillator Left: Chest [employer] 02/13/2026 [id number] / [id number] / Conversions - Default Historical Implant Device [...] INTERROGATION WITH PROGRAMMING Routine 06/16/2024 8:47 AM ENGINEER GAS PUMPING STATION Aftercare Cardiac Defibrillator COMPREHENSIVE METABOLIC PANEL, S/P Routine 03/18/2024 11:06 AM CDT Tachycardia Ventricular Nonsustained (HCC) from Last 3 Months or Most Recently Relevant to Health Maintenance Results * ICD DUAL CHAMBER INTERROGATION WITH PROGRAMMING (06/16/2024 8:47 AM ENGINEER GAS PUMPING STATION) Date Time Interrogation Session [id number] [facility] Implantable Pulse Generator Drier Belt Conveyor Jud [employer] [facility] Implantable Pulse Generator Type Defibrillator [facility] Implantable Pulse Generator Model D533 [facility] Implantable Pulse Generator Serial Number [id number] [facility] Implantable Pulse Generator Implant Date 20240319 [facility] Battery Status [facility] Chandrakant Statistic RA Percent Paced [...] 2 [facility] Implantable Lead Drier Belt Conveyor [employer] [facility] Implantable Lead Model 7841-52 [facility] Implantable Lead Location Right [employer] [facility] Implantable Lead Connection Status Connected [facility] Implantable Lead Serial Number [id number] [facility] Implantable Lead Implant Date 20240319 [facility] Implantable Lead Special Function Lead length: 52.00 cm [facility] Implantable Lead Drier Belt Conveyor [employer] [facility] Implantable Lead Model 0672-59 [facility] Implantable Lead Location Right Ventricle [facility] Implantable Lead Connection Status Connected [facility] Implantable Lead Serial Number [id number] [facility] Implantable Lead Implant Date 20240319 [facility] Implantable Lead Special Function Lead length: 59.00 cm [facility] Anatomical Region Laterality Modality Echocardiography 06/20/2024 6:18 PM ENGINEER GAS PUMPING STATION Impressions 06/20/2024 6:18 PM ENGINEER GAS PUMPING STATION Encounter Impression: Title: Normal In-Office: With Events [...] Metabolic Panel (03/18/2024 11:06 AM CDT) Pathologist [facility] Potassium, S 4.6 3.6 - 5.2 mmol/L [...] M.D. LAB BLOOD ADD-ON Fi nal Result [facility] [address] [place] [address], [facility] [place] [address] [place] [address] from Last 3 Months or Most Recently Relevant to Health Maintenance Insurance MEDICA Advance Directives For more information, please contact: [phone] * Full Code (Latest Code Status on File) Date Activated Date Inactivated Comments 03/19/2024 3:30 PM 03/19/2024 8:39 PM Question Answer Comments Full Code: Not Discussed Due to: Patient not available Care Teams Printed Circuit Board Panels Trimmer Relationship Specialty Start Date End Date Elsewhere, Pcp PCP - General Internal Medicine 06/12/24
--- OUTSIDE RECORDS SUMMARY | 2024-07-07 19:40 | XMS_ITS | Encounter Summary ---
Author Organization [facility] Address [address] [place] [address] Care Team Providers Care Call Taker Name Role Phone Elsewhere, Pcp Primary Care Provider Unavailabl e Reason for Visit * Reason Onset Date Comments Update on blood pressures and med 05/15/2024 Encounter Details Date Type Department Care Team (Latest Contact Info) Description 05/15/2024 Clinical Communication Department of Cardiovascular Medicine in [place], [place] [address] [place] [phone] Neha Gardner M.D. [address] [place] [phone] Update on blood pressures and med Social [...] often do you attend chur ch or episcopalian services? 1 to 4 times per year 03/18/2021 Do you belong to any clubs o r organizations such as sikhism groups, unions, fraternal or athletic groups, or [...] and heating? Not hard at all 05/29/2023 [facility] [place] of Occupat ional Health - Occupational Stress [...] your living situation today? [facility] 05/29/2023 Education Answer Date Recorded What is the highest level of school you have completed or the highest degree you have received? 12th grade 03/18/2021 Sex and Gender Information Value Date Recorded Sex Assigned at Male 03/18/2021 9:25 AM CDT Legal Sex Male 6:03 AM REALTY LOAN SPECIALIST Gender Identity Male 12/20/2017 11:12 AM CDT Sexual Orientation Straight 12/20/2017 11 :12 AM CDT documented as of this encounter Plan of Treatment Not on file documented as of this encounter Visit Diagnoses Not on filedocumented in this encounter Care Teams Call Taker Relationship Specialty Start Date End Date Elsewhere, Pcp PCP - General Internal Medicine 06/12/24 documented as of this encounter
--- OUTSIDE RECORDS SUMMARY | 2024-07-07 19:40 | XMS_ITS | Encounter Summary ---
Author Organization [facility] Address [address] [place] [address] Care Team Providers Care Newspaper Carrier Name Role Phone Elsewhere, Pcp Primary Care Provider Unavailabl e Reason for Visit * Reason Onset Date Comments Pre-visit Intake 06/12/2024 * Appointment Request (Routine) - Authorized Specialty Diagnoses / Procedures Referred By Alisia jones Referred To Contact Cardiovascular Disease Referral ID Status Reason Start Date Expiration Date V isits Requested Visits Authorized [id number] Authorized 03/25/2024 03/25/2025 1 1 Encounter Details Date Type Department Care Team (Latest Contact Info) Description 06/12/2024 2:15 PM FAGOT MAKER Clinical Communication Virtual Review in [place], [place] [address] [place] [address] Pre-visit Intake Social History Tobacco Use Types [...] often do you attend chur ch or temple services? 1 to 4 times per year 03/18/2021 Do you belong to any clubs o r organizations such as jehovah's witness groups, unions, fraternal or athletic groups, or [...] and heating? Not hard at all 05/29/2023 [facility] - Occupational Stress [...] your living situation today? I have a [facility] place to live 05/29/2023 Education Answer Date Recorded What is the highest level of school you have completed or the highest degree you have received? 12th grade 03/18/2021 Sex and Gender Information Value Date Recorded Sex Assigned at Male 03/18/2021 9:25 AM CDT Legal Sex Male 6:03 AM FAGOT MAKER Gender Identity Male 12/20/2017 11:12 AM CDT Sexual Orientation Straight 12/20/2017 11 :12 AM CDT documented as of this encounter Plan of Treatment Not on file documented as of this encounter Visit Diagnoses Not on filedocumented in this encounter Care Teams Newspaper Carrier Relationship Specialty Start Date End Date Elsewhere, Pcp PCP - General Internal Medicine 06/12/24 documented as of this encounter
[2024-07-07 19:45] LABS: Basophils Absolute Auto 0.02 K/uL (0.00-0.30); Basophils Percent Auto 0.3 % (0.0-3.0); Eosinophils Percent Auto 1.3 % (0.0-7.0); Hematocrit 42.7 % (37.0-53.0); Hemoglobin* 13.8 gm/dL (13.5-17.5); Immature Granulocytes Abs Auto 0.01 K/uL (0.00-0.30); Immature Granulocytes Pct Auto 0.1 %; Lymphocytes Absolute Auto 2.07 K/uL (0.90-2.90); Lymphocytes Percent Auto 25.9 % (20-44); Mean Corpuscular HGB Conc 32 gm/dL (32-36); Mean Corpuscular Hemoglobin 31 pg (26-34); Mean Corpuscular Volume 95 fL (80-100); Monocytes Percent Auto 11.1 % (0.0-11.0); Neutrophils Percent Auto 61.3 % (42.0-72.0); Platelet Count* 158 K/uL (140-440); RDW Coefficient of Variation % 12.8 % (11.5-15.5); Red Blood Count 4.52 m/uL (4.30-5.90); White Blood Count* 7.99 K/uL (4.50-11.00)
[2024-07-07 19:49] LABS: Slide Review Reflex No
== END 2024-07-07 23:46 | disposition home or self-care (01) ==
PROVIDERS: Emergency Provider Emergency Medicine; PCP Physician Assistant Medical
DX: K64.9 Unspecified hemorrhoids (principal)
CPT/HCPCS: 36415; 85025; 86850; 86900; 86901; 99283

== ENCOUNTER 2024-07-19 21:47 | Emergency (ER) | payer OTHER, SELFPAY ==
[2024-07-19 21:50] VITALS: BP 149/86; PULSE 66; RESP 18; TEMP 37.7; O2SAT 95; BMI 31.3
--- NOTE | 2024-07-19 22:36 | ED.GENADULT ---
HPI - General Adult General Chief complaint: GI Bleed Stated complaint: hemorrhoids, can't stop bleeding Time Seen by Provider: 07/19/24 22:02 Source: patient and family Mode of arrival: ambulatory Limitations: no limitations History of Present Illness HPI narrative: 79-year-old male presenting today with rectal bleeding. Patient was seen on the and diagnosed with an external hemorrhoid that was bleeding. He then had an anoscopy done in the surgery clinic and he was found to have an internal hemorrhoid that was bleeding. Increase fiber in his diet and looser stools were suggested, and they did discuss hemorrhoid banding as well. Patient is on Eliquis. He he did not take his evening dose today. He is not dizzy or lightheaded. He has had bleeding on and off since he was seen on the , however today he was sitting on the couch and felt bleeding coming from the rectum. He does wear depends and his depends had quite a significant amount of blood in them. Related Data Home Medications ?Medication ?Instructions ?Recorded ?Confirmed nitroglycerin 0.4 mg sublingual 0.4 mg sublingual Q5M PRN 02/02/22 07/15/24 tablet levetiracetam 500 mg tablet 500 mg PO BID 03/13/22 07/15/24 (Keppra) ascorbic acid (vitamin C) 500 mg 500 mg PO DAILY 10/14/22 07/15/24 tablet acetaminophen 325 mg tablet 650 mg PO Q6H PRN 09/19/23 07/15/24 aspirin 81 mg tablet,delayed 81 mg PO DAILY 09/19/23 07/15/24 release cholecalciferol (vitamin D3) 125 125 mcg PO DAILY 09/19/23 07/15/24 mcg (5,000 unit) capsule ezetimibe 10 mg tablet 10 mg PO HS 09/19/23 07/15/24 trazodone 50 mg tablet 50 mg PO HS 12/11/23 07/15/24 amiodarone 100 mg tablet 100 mg PO QDAY 12/13/23 07/15/24 torsemide 5 mg tablet 10 mg PO DAILY 01/23/24 07/15/24 Previous Rx's ?Medication ?Instructions ?Recorded meclizine 25 mg tablet 25 mg PO TID PRN dizziness #90 tabs 10/10/23 pantoprazole 40 mg tablet,delayed 40 mg PO DAILY #90 tabs 11/23/23 release apixaban 5 mg tablet (Eliquis) 5 mg PO BID #180 tabs 05/09/24 torsemide 5 mg tablet 5 - 10 mg (1 - 2 x 5 mg) PO QAM 05/19/24 #135 tabs carvedilol 6.25 mg tablet 6.25 mg PO BID #180 tabs 05/26/24 rosuvastatin 10 mg tablet 10 mg PO 3XW #45 tabs 05/28/24 valsartan 160 mg tablet 160 mg PO BID #180 tabs 06/11/24 Allergies Allergy/AdvReac Type Severity Reaction Status Date / Time amlodipine Allergy Severe hives/rash Verified 07/15/24 11:47 Eggzzqt-NFL-SiG Reductase AdvReac Intermediate myalgia Verified 07/15/24 11:47 Inhibitor iothalamate Allergy Severe had to do Uncoded 07/15/24 11:47 chest compressions and shock heart with angio dye Review of Systems Status of ROS: Reports: 10 or more systems reviewed and unremarkable except as noted in History and below [facility] Medical History Bradycardia ?R00.1 - Bradycardia, unspecified (ICD-10) History of CVA (cerebrovascular accident) (~08/2023) ?Z86.73 - Personal history of transient ischemic attack (TIA), and cerebral infarction without residual deficits (ICD-10) Ulnar neuropathy ?G56.20 - Lesion of ulnar nerve, unspecified upper limb (ICD-10) Arrhythmia ?I49.9 - Cardiac arrhythmia, unspecified (ICD-10) Former smoker ?Z87.891 - Personal history of nicotine dependence (ICD-10) Hyperlipidemia ?E78.5 - Hyperlipidemia, unspecified (ICD-10) 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 - Ventricular premature depolarization (ICD-10) Coronary artery aneurysm ?I25.41 - Coronary artery aneurysm (ICD-10) Cerebrovascular disease ?I67.9 - Cerebrovascular disease, unspecified (ICD-10) Ribs, multiple fractures ?S22.49XA - Multiple fractures of ribs, unspecified side, initial encounter for closed fracture (ICD-10) BPPV (benign paroxysmal positional vertigo) ?H81.10 - Benign paroxysmal vertigo, unspecified ear (ICD-10) Surgical History History of three vessel coronary artery bypass ?Z95.1 - Presence of aortocoronary bypass graft (ICD-10) History of surgery on right wrist ?Z98.890 - Other specified postprocedural states (ICD-10) History of carpal tunnel surgery of left wrist ?Z98.890 - Other specified postprocedural states (ICD-10) History of ankle surgery ?Z98.890 - Other specified postprocedural states (ICD-10) Family History Mother Asthma Maternal Grandmother Diabetes Family/Other Cardiomyopathy Father High blood pressure Social History Narrative: . is undergoing treatment for Multiple Myeloma and has some cognitive impairment. Son, Jelani, lives with them and sets up meds for the patient and his . Son works during the day and stops by the house or calls 1-5 times during the work day to check on them. Does not use illicit drugs Former smoker- quit in 2011 Occasional alcohol consumption Can ambulate without a walker but uses a four-wheel walker when he goes on longer walks so he can stop and rest. What is your current living situation?: I presently have a place to live Problems where you live: no known problems Problems where you live details: n/a In the past 12 months, utilities in danger of being shut off: no In past 12 months, lack of transportation kept you from medical appts, meetings, work, or getting things needed for daily living: no In the past 12 mos, have been you worried that your food would run out before you had money to buy more?: never true In the past 12 mos, the food you bought just didn't last and you didn't have money to buy more?: never true Highest level of school completed/degree received: Associate degree: occupational, technical, vocational program Smoking Status: Former smoker Do you use any of these nicotine containing products: None Second hand tobacco smoke exposure: No How often do you have a drink containing alcohol: never How many standard drinks containing alcohol do you have on a typical day: 1 or 2 How often do you have six or more drinks on one occasion: Never AUDIT-C Alcohol total score: 0 Non-prescribed substance use: denies use How often does anyone, including family, friends and others, physically hurt you: never How often does anyone, including family, friends and others, insult or talk down to you: never How often does anyone, including family, friends and others, threaten you with harm: never How often does anyone, including family, friends and others, scream or curse at you: never service: No Exam Narrative: Exam Narrative: Well-nourished well-developed patient in no acute distress. Alert and oriented. Answers questions appropriately. Mood and affect are appropriate. Thoughts are goal oriented and rational. No tangential or magical thinking noted. Patient speaks in full sentences without needing to catch his breath. He is not tachypneic or tachycardic. He does not appear ill or toxic. He does not appear pale. HEENT: Normocephalic atraumatic. Pupils are equally round reactive to light. Extraocular muscles are intact. Conjunctivae are moist without any icterus noted. Moist mucous membranes. Cardiovascular: Irregularly irregular. Abdomen: Soft and nontender nondistended with normal bowel sounds. Skin: Well perfused, not pale. Rectum: Patient has fresh blood is seeping out of the rectum. There is no obvious external hemorrhoid that is bleeding. There are no rectal masses noted. Const: Vital Signs, click to edit/add: Vital Signs - 24 hr 07/19/24 21:50 Temperature 99.9 F H Pulse Rate [Pulse Oximeter] 66 Respiratory Rate 18 Blood Pressure [Ri ght Upper Arm] 149/86 H Pulse Oximetry 95 Oxygen Delivery Me thod Room Air Course Course ED Course: Discussed patient with Dr. Mckenzie, surgeon on-call. She recommended inserting gauze into the rectum for pressure. We took a tampon and wrapped it in Adaptic. This was inserted into the rectum. Patient tolerated this well. He was monitored for approximately 30 minutes afterwards and had no significant bleeding. Vital Signs Vital signs: Initial Vital Signs Temperature 99.9 F H 07/19/24 21:50 Temperature Source Temporal Artery Scan 07/19/24 21:50 Pulse Rate 66 07/19/24 21:50 Respiratory Rate 18 07/19/24 21:50 Blood Pressure 149/86 H 07/19/24 21:50 Blood Pressure Mean 107 H 07/19/24 21:50 Blood Pressure Position Sitting 07/19/24 21:50 Pulse Oximetry 95 07/19/24 21:50 Oxygen Delivery Method Room Air 07/19/24 21:50 Vital Signs Temperature 99.9 F H 07/19/24 21:50 Pulse Rate 66 07/19/24 21:50 Respiratory Rate 18 07/19/24 21:50 Blood Pressure 149/86 H 07/19/24 21:50 Pulse Oximetry 95 07/19/24 21:50 Oxygen Delivery Method Room Air 07/19/24 21:50 Temperature 99.9 F H 07/19/24 21:50 Pulse Rate 66 07/19/24 21:50 Respiratory Rate 18 07/19/24 21:50 Blood Pressure 149/86 H 07/19/24 21:50 Pulse Oximetry 95 07/19/24 21:50 Oxygen Delivery Method Room Air 07/19/24 21:50 Medical Decision Making MDM Narrative Medical decision making narrative: 79-year-old male with an internal hemorrhoid that continues to bleed. At this time he is instructed to stop his Eliquis for 24 hours. He will be at [facility] Sunday night for his 's procedure, he will speak to his special warfare combatant crewman Sunday. At that time they will make the decision of whether to continue the Eliquis or not. Patient will also call our surgical clinic to discuss hemorrhoid banding verses doing this at [facility] where he will be this week. This will be up to the patient. He he understands that he should not be off his Eliquis for more than 24 hours without consulting his special warfare combatant crewman. We discussed that even this can increase his risk of stroke, however his bleeding risk at this time is significant also and he understands this. Discharge Plan Discharge Clinical Impression: Bleeding hemorrhoid Patient Disposition: Home, Self-Care Condition: Stable Additional Instructions: Keep gauze inside the rectum for pressure. Okay to have bowel movements like you normally would, replace the gauze after bowel movements. Stop Eliquis for the entire day on Sunday. Discussed this with your special warfare combatant crewman 1st thing Sunday, you should make a decision at that time with your special warfare combatant crewman of whether or not you will continue Eliquis. You will need hemorrhoid banding, this can be done at [facility] in the general surgery clinic or at [facility] if you prefer. Stopping Eliquis does increase your risk of stroke like we discussed, however we will have a very difficult time getting the rectal bleeding to stop if you do not do this. Prescriptions: No Action levetiracetam [Keppra] 500 mg tablet 500 mg PO BID amiodarone 100 mg tablet 100 mg PO QDAY ascorbic acid (vitamin C) 500 mg tablet 500 mg PO DAILY meclizine 25 mg tablet 25 mg PO TID PRN (Reason: dizziness) Qty: 90 0RF Rx Instructions: one tablet three times daily for vertigo trazodone 50 mg tablet 50 mg PO HS Rx Instructions: one tablet once daily for sleep aide acetaminophen 325 mg tablet 650 mg PO Q6H PRN cholecalciferol (vitamin D3) 125 mcg (5,000 unit) capsule 125 mcg PO DAILY aspirin 81 mg tablet,delayed release (DR/EC) 81 mg PO DAILY ezetimibe 10 mg tablet 10 mg PO HS nitroglycerin 0.4 mg tablet, sublingual 0.4 mg sublingual Q5M PRN Rx Instructions: do not exceed 3 doses per episode pantoprazole 40 mg tablet,delayed release (DR/EC) 40 mg PO DAILY Qty: 90 2RF Rx Instructions: for GERD torsemide 5 mg tablet 10 mg PO DAILY Eliquis 5 mg tablet 5 mg PO BID Qty: 180 0RF Rx Instructions: one tablet twice daily torsemide 5 mg tablet 5 - 10 mg PO QAM Qty: 135 0RF Rx Instructions: take one tablet every other day; the opposite days take 2 tablet ( alternate 5mg and 10mg every other day) carvedilol 6.25 mg tablet 6.25 mg PO BID Qty: 180 0RF Rx Instructions: 1 tablet twice daily must administer with a meal/food rosuvastatin 10 mg tablet 10 mg PO 3XW Qty: 45 3RF Rx Instructions: one tablet, 3 x weekly valsartan 160 mg tablet 160 mg PO BID Qty: 180 1RF Rx Instructions: one tablet twice daily for blood pressure STOP losartan Follow Up/Referrals: Yohana Watkins PA-C [Primary Care Provider] - Stand Alone Forms: [facility] Info Instructions
--- OUTSIDE RECORDS SUMMARY | 2024-07-19 22:52 | XMS_ITS | Referral Summary ---
Author Organization [place] Address [address] [facility] 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
--- OUTSIDE RECORDS SUMMARY | 2024-07-19 22:52 | XMS_ITS | Clinical Summary ---
Author Organization [facility] Address [place], [place] [address] Care Team Providers Care Sort Line Name Role Phone BaldwinDonya Jeff Primary Care Provider [phone] Allergies Active Allergy Reactions Criticality Noted Date Comments Amlodipine Hives High 01/13/2021 Iodinated Contrast Media Anaphylaxis,Other - Describe In Comment Field High 05/10/2016 Cardiac arrest during stent placement Asbhdsf-Vcc-Vsn Reductase Inhibitors Other - Describe In Comment [...] ag e 18-79 1963 Tetanus booster 1965 Pneumococcal series for age 50+ (1 of 1 - PCV) 1995 Zoster (shingles) series for age 50+ (1 of 2) 1995 Medicare Wellness for age 65+ 2010 RSV vaccine for adults or (1 - 1-dose 75+ series) 2020 COVID-19 vaccine series (2023- season) 2024 05/18/2022, 05/17/2021, 09/11/2020, Additional history exists Influenza for age 65+ 03/02/2024 [place] [address] MEDICARE PART B HB ONLY Advance Directives Documents on File Type Date Recorded 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
--- OUTSIDE RECORDS SUMMARY | 2024-07-19 22:52 | XMS_ITS | Clinical Summary ---
Author Organization [place] Address [address] [facility] 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
--- OUTSIDE RECORDS SUMMARY | 2024-07-19 22:52 | XMS_ITS | Continuity of Care Document ---
Author Name [facility] User [email or web address] Address Unknown Organization Unknown Address Unknown Procedures FILTER APPLIED:Only known Procedures with Onset Date within the last 5 years Procedure Date Procedure Provider Additiona l Information Status THERAPEUTIC EXERCISES (62198) Completed NEUROMUSCULAR REEDUCATION (39561) Completed PT EVAL LOW COMPLEX 20 MIN (95390) Completed SELF CARE MNGMENT TRAINING (46192) Completed THERAPEUTIC ACTIVITIES (49793) Completed OT EVAL LOW COMPLEX 30 MIN (66055) Completed GAIT TRAINING THERAPY (79428) Completed LIPID PANEL (35860) Comp leted ASSAY THYROID STIM HORMONE (04287) Completed URINE CULTURE/COLONY COUNT (11236) Completed ROUTINE VENIPUNCTURE (06106) Completed MRI BRAIN STEM W/O DYE (74639) Completed URINALYSIS AUTO W/SCOPE (11943) Completed THROMBOPLASTIN TIME PARTIAL (57637) Completed SPEECH SOUND LANG COMPREHEN (62050) Completed EVALUATE SWALLOWING FUNCTION (02444) Completed TTE F-UP OR LMTD (64461) Completed DOPPLER ECHO EXAM HEART (97951) Completed DOPPLER COLOR FLOW ADD-ON (43674) Completed EMERGENCY DEPT VISIT HI MDM (26301) Completed CRITICAL CARE FIRST HOUR (93045) Completed C-REACTIVE PROTEIN (48531) Completed RESP VIRUS 3-5 TARGETS (39587) Completed ELECTROCARDIOGRAM TRACING (74980) Completed MEASURE BLOOD OXYGEN LEVEL (18958) Completed CT HEAD/BRAIN W/O DYE (99214) Completed CT ANGIOGRAPHY HEAD (98330) Completed CT ANGIOGRAPHY NECK (89113) Completed METABOLIC PANEL TOTAL CA (06088) Completed HEPATIC FUNCTION PANEL (53286) Completed ASSAY OF NATRIURETIC PEPTIDE (92539) Completed ASSAY OF TROPONIN QUANT (02357) Completed COMPLETE CBC W/AUTO DIFF WBC (40458) Completed PROTHROMBIN TIME (68997) Completed PROTHROMBIN TIME (04556) Completed ASSAY OF NATRIURETIC PEPTIDE (51699) Completed LIPID PANEL (43082) Comp leted COMPREHEN METABOLIC PANEL (77146) Completed ASSAY OF PSA TOTAL (96235) Completed Encounters FILTER APPLIED:Only known Encounters with Admission Date within the last 5 years Encounter Location Admission Discharge Billing Code [employer] Driver [facility] Outpatient Yohana Watkins Outpatient Yohana Watkins Outpatient Yohana Watkins Inpatient [id number] Lynette Villalta
== END 2024-07-19 23:43 | disposition home or self-care (01) ==
LOC: ED 22:50
PROVIDERS: Emergency Provider Family Medicine; PCP Physician Assistant Medical
DX: K64.9 Unspecified hemorrhoids (principal)
CPT/HCPCS: 99282; 99283; 99284

== ENCOUNTER 2024-08-07 09:50 | Outpatient (CLI) | payer OTHER, SELFPAY | END 2024-08-07 09:51 | disposition home or self-care (01) | LOC: NFLDREF 08-13 03:22 | PROVIDERS: PCP Physician Assistant Medical; Referring Provider Physician Assistant Medical; Visit Provider Physician Assistant Medical | DX: I25.10 Atherosclerotic heart disease of native coronary artery without angina pectoris (principal); N18.9 Chronic kidney disease, unspecified; E78.5 Hyperlipidemia, unspecified; Z12.5 Encounter for screening for malignant neoplasm of prostate; Z13.1 Encounter for screening for diabetes mellitus | CPT/HCPCS: 80061; 82043; 82570; 84443; G0103 ==

== ENCOUNTER 2024-10-22 11:50 | Outpatient (CLI) | payer OTHER, SELFPAY | END 2024-10-22 11:51 | disposition home or self-care (01) | PROVIDERS: PCP Physician Assistant Medical; Visit Provider Physician Assistant Medical | DX: I10 Essential (primary) hypertension (principal); I50.9 Heart failure, unspecified; N18.9 Chronic kidney disease, unspecified | CPT/HCPCS: 82306; 82607 ==

== ENCOUNTER 2024-12-03 08:08 | Outpatient (CLI) | payer OTHER, SELFPAY ==
--- NOTE | 2024-12-03 | CRLHL7_ITS ---
For Patients: As a result of the Century Cures Act, medical imaging exams and procedure reports are released immediately into your electronic medical record. You may view this report before your referring provider. If you have questions, please contact your health care provider. CT ANGIOGRAM HEAD DATE: 12/03/2024 CLINICAL HISTORY: Patient with dizziness. TECHNIQUE: Standard helical CT image acquisition through the intracranial circulation following intravenous administration of contrast material with bolus tracking. 2D and 3D MIP images for post-processing were performed and interpreted on an independent workstation and 3D images were permanently archived. COMPARISON: None. FINDINGS: There is no proximal intracranial large vessel occlusion. There is no intracranial aneurysm. The right internal carotid artery is normal. The right middle cerebral artery and its branches are normal. The right anterior cerebral artery and its branches are normal. The left internal carotid artery is normal. The left middle cerebral artery and its branches are normal. The left anterior cerebral artery and its branches are normal. The anterior communicating artery is well visualized and appears normal. The right vertebral artery and PICA are normal. The left vertebral artery and PICA are normal. The left vertebral artery is dominant. The basilar artery is patent and appears normal. The right posterior cerebral artery is normal. The left posterior cerebral artery is normal. The visualized venous structures are patent. IMPRESSION: Patent proximal intracranial vasculature without intracranial aneurysms. Please note that all CT scans at this facility use dose modulation, iterative reconstruction, and/or weight-based dosing when appropriate to reduce radiation dose to as low as reasonably achievable. Dictated by: Maxine Gupta MD @ 12/03/2024 11:36:48 (Electronically Signed)
--- NOTE | 2024-12-03 | CRLHL7_ITS ---
For Patients: As a result of the Century Cures Act, medical imaging exams and procedure reports are released immediately into your electronic medical record. You may view this report before your referring provider. If you have questions, please contact your health care provider. CT ANGIOGRAM NECK DATE: 12/03/2024 CLINICAL HISTORY: Patient with dizziness and vertigo. TECHNIQUE: Standard helical CT image acquisition of the neck up to the skull base after bolus intravenous contrast enhancement. 2D and 3D MIP images for post-processing were performed and interpreted on an independent workstation and 3D images were permanently archived. COMPARISON: None. FINDINGS: The origins of the great vessels from the aortic arch are patent. The origin of the right vertebral artery is patent. The origin of the left vertebral artery is patent. The common carotid arteries are patent. There is a mild (less than 50%) stenosis at the origin of the right internal carotid artery by NASCET criteria caused by calcified plaque with a greater than 2mm residual lumen. There is a mild (less than 50%) stenosis at the origin of the left internal carotid artery by NASCET criteria caused by calcified plaque with a greater than 2mm residual lumen. The rest of the cervical segments of the internal carotid arteries are patent up to the skull base. The left vertebral artery is dominant. The cervical segments of the vertebral arteries are patent up to the skull base. The visualized lung apices are unremarkable. The thyroid gland is unremarkable. The soft tissues of the neck are unremarkable. There are degenerative changes in the cervical spine. IMPRESSION: 1. Mild (less than 50%) stenosis at the origin of the right internal carotid artery by NASCET criteria caused by calcified plaque with a greater than 2mm residual lumen. 2. Mild (less than 50%) stenosis at the origin of the left internal carotid artery by NASCET criteria caused by calcified plaque with a greater than 2mm residual lumen. Please note that all CT scans at this facility use dose modulation, iterative reconstruction, and/or weight-based dosing when appropriate to reduce radiation dose to as low as reasonably achievable. Dictated by: Maxine Gupta MD @ 12/03/2024 11:34:19 (Electronically Signed)
[2024-12-03 08:44] LABS: Creatinine* 1.7 mg/dL (0.5-1.5); Estimated Glomerular Filt Rate 41 ml/min
== END 2024-12-03 08:09 | disposition home or self-care (01) ==
LOC: CT 08:09
PROVIDERS: PCP Physician Assistant Medical; Visit Provider Physician Assistant Medical
DX: R42 Dizziness and giddiness (principal); I65.23 Occlusion and stenosis of bilateral carotid arteries
CPT/HCPCS: 36415; 70496; 70498; 82565; Q9967

== ENCOUNTER 2025-01-06 16:30 | Outpatient (RCR) | payer OTHER, SELFPAY ==
--- NOTE | 2024-08-29 11:20 | PT.OPE ---
PT [place] [facility] PT [facility] Eval Start: 08/28/24 09:48 Freq: Status: Active Protocol: Document 08/28/24 09:52 BMS (Rec: 08/28/24 10:49 BMS [id number]) E-signed By Kemi Mckeon PT Physical Therapy Outpatient Evaluation Insurance Information Recert Due Date 11/25/24 Insurance Name Medicare B Provider Fax Number internal Medical Diagnosis Z91.81 Hx falling R53.81 other mailaise Treating Diagnosis abnormal gait R26.89 imbalance hx falls Z91.81 Referring MD Yohana Watkins PA-C NPI# [id number] Subjective Subjective had a sharp pain across the chest 1 time in middle of night, woke me up was different but only once, didnt last. have had heart attack and 4 strokes. fatigued all the time meena last 6 years, never really felt up to snuff. [place] on Mon this week for , got home and slept 12 hours, felt rested when I woke up. VERTIGO - had about a week ago , laying down supine woke up saw ceiling fan looked like was moving but wasn't turned on. not dizzy now, but am lightheaded almost all the time. FALLING: havent fallen. did. stairs 2x/ day for exercise. rail only on one side but can reach the other wall. feel slightly off and have to watch steps when I go down 12-13 staircase. havent been able to get out and walk bc of weather. last few fri have gone to [place] [employer] walked one end to other Mon went to [place] from [facility] to [facility] to [place] and [facility] with SPC was weak and shaky each way, more weak bc how far. Not really doing the ex right now except still do tongue depressor w smile on it. spot on rastafarian Right dry vs lesion? pt to call provider dtr in [place], granddtr fbo, grandson [place] great grandchildren tingling L hand constant since last Mar (maybe from stroke). Both pinky fingers numb all time R arm and hand, R leg run over by tractor, fell off roof compacted ankle. fx R LE, feet not numb/tingly has had several episodes, she had to take a cancer nodule out of lung and now has running both ends still on water pills and some days depends not enough. Pain Comments no pain Current Work Status Retired Precautions Treatment Precautions/Contraindications ICD (implantable cardioverter- defibrillator) in place (Acute ) 03/19/2024- [facility] Z95.810 - Presence of automatic (implantable) cardiac defibrillator (ICD-10) Physical deconditioning (Acute ) Spring/summer 2023- physical therapy R53.81 - Other malaise (ICD-10 ) Risk for falls (Acute) Spring/summer 2023- physical therapy Z91.81 - History of falling ( ICD-10) Stroke (Acute ~12/09/23) 12/09/2023- Although MRI evidence of acute stroke. Dr. George states these are all old lesions present on previous MRI, nothing new. 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 Continue apixaban 5 mg b.i.d. and aspirin [address] George thought this was possibly caused by a cholesterol plaque from the mild R internal carotid stenosis and we should increase crestor to 10 mg MWF or 5 mg daily. Patient wants 10mg MWF. I63.9 - Cerebral infarction, unspecified (ICD-10) Alteration in vision (Acute) 12/09/2023- Right eye; stroke Hollenhorst Plaque H54.7 - Unspecified visual loss (ICD-10) Toenail fungus (Acute) B35.1 - Tinea unguium (ICD-10) Flexion deformity, right elbow (Acute) chronic from childhood fracture M21.221 - Flexion deformity, right elbow (ICD-10) History of CVA ( cerebrovascular accident) ( Acute ~08/2023) -August 202309/19: MRI showing right greater than left diffuse/ innumerable foci of cerebellar and cerebral acute/subacute infarcts. Overall suggested of a central embolic phenomena . Cardioembolic in nature. Started Eliquis 5 mg twice daily on 09/20. 09/18: Echo revealed a technically limited exam. Normal LV size. Mild increased wall thickness. EF 55-60%. Global systolic RV function is normal. No significant valve disease. 12/10 Dr. George reviewed MRI done 12/09 and thought there were no new lesions, but that there is a phenomenon that can happen that makes the lesions appear to be acute. He said he went through lesion by lesion and was able to match them to lesions already present on MRI from August. Z86.73 - Personal history of transient ischemic attack (TIA ), and cerebral infarction without residual deficits (ICD -10) Sleeping difficulty (Acute) Trazodone G47.9 - (ICD-10) Vertigo (Acute) [id number] with post stroke symptoms R42 - Dizziness and giddiness (ICD-10) Paroxysmal atrial fibrillation (Chronic) [id number] Coumadin was switched to apixaban during hospital stay for CVA. I48.0 - Paroxysmal atrial fibrillation (ICD-10) Long-term (current) use of anticoagulants, INR goal 2.0-3 .0 (Chronic) indication: a-fib, duration: lifelong Of previously had been on warfarin which was difficult for him to manage and target INR was difficult to maintain. As of this hospitalization August 2023-warfarin was transition to oral apixaban. Z79.01 - longterm (current) use of anticoagulants (ICD-10) Arrhythmia (Acute) Follows with [facility] 06/15/2023-saw [place] . Started amiodarone, Holter monitor indicated that he was having asymptomatic ventricular ectopy including the interval increased burden in ventricular premature complexes as well as multiple runs of ventricular tachycardia. - good rate control, also see acute CVA above for anticoagulation discussion 09/19: DC Coumadin, start Eliquis 5 mg b.i.d. on 09/20 ( consider adjusting dose for age and kidney function in 2 years). Continue amiodarone, metoprolol. 09/21: Adjusted amiodarone from 200-100 mg daily. Metoprolol was reduced from 50 mg down to 25 mg daily. 09/23/2023: on amiodarone 100mg . bradycardia improved. 11/07/2023-patient was seen in clinic. He had resumed his home dose of amiodarone 200 mg and metoprolol 50 mg daily. I49.9 - Cardiac arrhythmia, unspecified (ICD-10) Hypertension (Chronic) 05/16/2024- patient currently on amiodarone 100, losartan 50 , metoprolol 50 mg, or some might 5 mg every other day, 10 mg opposite I10 - Essential (primary) hypertension (ICD-10) Hemorrhoids (Acute) anusol suppository; topical hydrocortisone. soften stools with miralax. Hold apixaban if rectal bleeding from hemorrhoids is brisk were continuous. K64.9 - Unspecified hemorrhoids (ICD-10) Cerebrovascular disease ( Chronic) Aspirin, statin I67.9 - Cerebrovascular disease, unspecified (ICD-10) CKD (chronic kidney disease) ( Chronic) baseline kidney function, 1.6- 2.0. 08/2023- Per neurology recommendations ( pt had CVA), start Eliquis 5 mg b.i.d., may need to consider reducing to 2.5 mg twice daily in 2 years) N18.9 - Chronic kidney disease , unspecified (ICD-10) Congestive heart failure ( Chronic) HFpEF EF 53% 05/23/2023-BNP 996 I50.9 - Heart failure, unspecified (ICD-10) COPD (chronic obstructive pulmonary disease) (Chronic) mild, not on tx 06/15/2023-patient had pulmonary function test showed mild reduced FEV1, compared to previous test there was improvement in the post bronchodilator FVC J44.9 - Chronic obstructive pulmonary disease, unspecified (ICD-10) Coronary artery disease ( Chronic) s/p angiogram showing multivessel disease and chronic occlusion of LAD. [place] 2015, NSTEMI 04/17. s/p CABG x3 June 2017. Follows with Dr. Everett [facility] [place]. Stress test 01/21/2019- [facility]- negative forischemia with several 3-5 runs of VT. I25.10 - Atherosclerotic heart disease of [place] coronary artery without angina pectoris (ICD-10) Coronary artery aneurysm ( Chronic) Follows with Dr. Gardner at [place] - last seen 06/23; follow annually patient on warfarin, lifelong duration, goal 2-3 [id number] showed ejection fracture was improved . He has an enlarged mid ascending aorta diameter of 44 mm, borderline enlarged sinus of Valsalva diameter of 43 mm , mildly enlarged right ventricle, normal left ventricular filling pressure, mildly enlarged left ventricle chamber size, ejection fraction 56% with edbb-ax-egde variability in setting of frequent ventricular ectopic beats. No regional wall motion abnormalities. 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 I71.40 - Abdominal aortic aneurysm, without rupture, unspecified (ICD-10) Ascending aortic aneurysm ( Chronic) 03/20/2022-CT chest shows dilated ascending aorta 4.2 cm [id number] was completed but there is no reference of the aorta I71.21 - Aneurysm of the ascending aorta, without rupture (ICD-10) Obstructive sleep apnea treated with continuous positive airway pressure (CPAP ) (Chronic) CPAP G47.33 - Obstructive sleep apnea (adult) (pediatric) (ICD -10) Z99.89 - Dependence on other enabling machines and devices (ICD-10) Medical History (Updated 05/16 @ 11:36 by Yohana Watkins PA-C) Bradycardia R00.1 - Bradycardia, unspecified (ICD-10) History of CVA ( cerebrovascular accident) (~) Z86.73 - Personal history of transient ischemic attack (TIA ), and cerebral infarction without residual deficits (ICD -10) Ulnar neuropathy G56.20 - Lesion of ulnar nerve , unspecified upper limb (ICD- 10) Arrhythmia I49.9 - Cardiac arrhythmia, unspecified (ICD-10) Former smoker Z87.891 - Personal history of nicotine dependence (ICD-10) Hyperlipidemia E78.5 - Hyperlipidemia, unspecified (ICD-10) Frequent PVCs I49.3 - Ventricular premature depolarization (ICD-10) Coronary artery aneurysm I25.41 - Coronary artery aneurysm (ICD-10) Cerebrovascular disease I67.9 - Cerebrovascular disease, unspecified (ICD-10) Ribs, multiple fractures S22.49XA - Multiple fractures of ribs, unspecified side, initial encounter for closed fracture (ICD-10) BPPV (benign paroxysmal positional vertigo) H81.10 - Benign paroxysmal vertigo, unspecified ear (ICD- 10) Surgical History (Reviewed 04/24 @ 21:21 by Eris Garcia MD) History of three vessel coronary artery bypass Z95.1 - Presence of aortocoronary bypass graft ( ICD-10) History of surgery on right wrist Therapy Limitations/Systems Review Affect,Cognition,Vision, Hearing,Other Medical Problem Objective Range of Motion L knee lack 10, ankle lack 10 deg from neutral R knee lack 5, R ankle DF 5 deg shoulder flex R = 165, L = 160 elbow 40 degree flex hard endfeel, L= 12 deg hyper wrist R = 10 deg flex and ext. B cervical rotation 60 Strength B shoulder flex R = 5/5: L =4 abduct 4: L =5 bicep 5: L =5 tricep 3- pop: L =5 ER/IR 4 elbow pop; L= 5 HIP FLEX B 4 R quad 4 B HS 5 ankle inv 4, pf 4 seated Balance & Gait SPC, decreased stride length, mild to mod path deviation with slowed pace and wider base of support. increased respiration rate after 100-150 ft, required seated rest after 150' due to increased imbalance. Standing balance wide SHARI steady, LOB with head turns, with tandem stance no c/o dizziness today. LOB with rapid turn requiring therapist assist to catch self . slows when approaches obstacle, stops to step over. stops gait to turn to look at target. unable to SLS. steady w SPC standing in preferred position Posture head forward, flattened back, hip and knee flex. Other/Pertinent Objective R eye visual field cut w clot Functional Test Performed & Score 5x STS = 30 sec, did LOB x 2, 1 time failed standing. initial w UE and bracing calves at chair = 15 sec. 50 ft walk with 180 deg turn ( by rail) = 30 seconds Assessment Assessment/Impression Patient is 79 yo male referred to physical therapy for hx of falls, vertigo, and debility. He lives in own home with who has multiple myeloma and cognitive decline, and his son Albaro who is primary caregiver for both. Patient has history of multiple fractures and surgeries over the years including breaking right leg x2 (ran over by tractor as small child), also compression injury through R ankle. R UE fractures and surgeries, resulting in R elbow fused at ~ 90 degrees and loss of wrist mobility. He presents today ambulating with single point cane with prominent lateral shift in gait, mild to mod path deviation, and LOB requiring assist for recovery with head turn. Gait stride shortened with lack of hip and knee extension and lack of trunk rotation. Balance is impaired with all multifocal dynamics, difficulty with dual task including gait/cognitive. Endurance is impaired, patient is out of breath after 150?. Mod tolerance of ex noted. Impaired strength in LE and UE resulting in difficulty with amb longer distances to participate in ?s medical appointments. Barely able to walk a block [facility]. Patient is appropriate for skilled physical therapy to address above deficits and improve ability to live in modified independent environment at home with son as caregiver. Family may benefit from home health to assist with ADLs and IADLs, did discuss briefly this date, patient is concerned about cost. Primary Functional Limitations gait, balance, endurance, self cares w low energy Plan of Care Rehabilitation Potential Good Physical Therapy Goals 1) Pt demo independence/ modified I with home program to maximize self care and slow deterioration of function. 2) Pt maintain I transfers, transitions and bed mobility for maximum safe independence in own home through training, equipment and adaptation as appropriate in presence of degenerative disease process. 3) Pt participate in gait and balance training to maximize safest independence with home and community mobility using least restrictive aid. 4) Pt participate in clinic program to maximize strength, stability, balance and conditioning for maximal quality of life while considering/ adapting to disease process. 3) Pt will demo 500' ambulation without limp and with best mechanics and balance to decrease risk of fall with community ambulation for things such as grocery shopping, participation in fitness activities. 4) Pt will demo ability to return to walking and functional strengthening for management of chronic conditions to maximize independence and longevity. Coordination/Communication With Referral Source,Patient Caregiver Treatment Plan/Direct Interventions Gait Training,Manual Therapy, Neuromuscular Re-ed,Self-Care/ Home Management,Therapeutic Activities,Therapeutic Exercises Frequency/Duration 1-2x/ week x 6 weeks Patient Will Be Discharged From Therapy Completion of LTG(s),Skills Plateau,Independent w/HEP, Independently Progressing Evaluation Billing Untimed Code Treatment Minutes 35 Complexity Moderate Certification Information Initial Certification Date 08/28/24 Ending Certification Date 11/25/24 Provider Signature Required Yes Provider Signature Shows Agreement With POC & Medical Necessity Physician NPI Number Write NPI# Here Physician Comment/Change : Physician Signature & Date Requested Please Sign/Date Here
--- NOTE | 2024-12-05 12:46 | PT.OPDN ---
[facility] Daily Note PT [facility] Daily Note Start: 08/28/24 09:48 Freq: Status: Active Protocol: Document 12/03/24 10:07 BMS (Rec: 12/03/24 10:20 BMS [id number]) E-signed By Kemi Mckeon, PT PT OP Daily Progress Note Visit Information Note Type Daily Note,Recert/Progress Note,Re-Evaluation Visit Number [id number] Insurance Information Recert Due Date 03/02/25 Insurance Name Medicare B Medical Diagnosis Z91.81 Hx falling R53.81 other mailaise Treating Diagnosis abnormal gait R26.89 imbalance hx falls Z91.81 Referring MD Yohana Watkins PA-C NPI# [id number] Subjective Subjective - has been ~ 2 weeks lasts seconds but happenign all day long - have felt some nausea but not vomiting - had defib check and [facility] blood work ure2 weeks ago - first lay down in bed - quick turn to right felt off but no eye movements per son. - looking to right and laying back in recliner triggers it. blood press has been very high, takes cardiboral then few hours later 150s/80s. -stressed out bc 's hesitatnt to wear cpap and when she doesnt then her cognition tanks patient not getting full night's sleep -Yohana suggested CT through head and neck. - very little looking up - in AM looking on bed the plaque looks like it drops and if stare at it it quits in minutes. - feels off - had CT Yohana wanted to check bc similar to prior to stroke. - one night at end of bed I leaned fwd on bed, fell back against dresser sit leaning against dresser took 10 min to get back up. - has had mild COPD dx. go down to [facility] for pulmonary testing - out of breath getting the mail, now has to sit before can read. was ~ 6 mos ago endurance has really declined. - went into A fib x 1 hour on 10/06/24 - woke him up. did not get defibrillated, then couple weeks later went into Afib x 18 sec. no shock then either. - have felt a squeeze but not as severe pressure in chest. Precautions Treatment ICD (implantable cardioverter-defibrillator) in place ( Precautions/ Acute) Contraindications 03/19/2024- [facility] Z95.810 - Presence of automatic (implantable) cardiac defibrillator (ICD-10) Physical deconditioning (Acute) Spring/summer 2023- physical therapy R53.81 - Other malaise (ICD-10) Risk for falls (Acute) Spring/summer 2023- physical therapy Z91.81 - History of falling (ICD-10) Stroke (Acute ~12/09/23) 12/09/2023- Although MRI evidence of acute stroke. Dr. George states these are all old lesions present on previous MRI, nothing new. 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 Continue apixaban 5 mg b.i.d. and aspirin [address] George thought this was possibly caused by a cholesterol plaque from the mild R internal carotid stenosis and we should increase crestor to 10 mg MWF or 5 mg daily. Patient wants 10mg MWF. I63.9 - Cerebral infarction, unspecified (ICD-10) Alteration in vision (Acute) 12/09/2023- Right eye; stroke Hollenhorst Plaque H54.7 - Unspecified visual loss (ICD-10) Toenail fungus (Acute) B35.1 - Tinea unguium (ICD-10) Flexion deformity, right elbow (Acute) chronic from childhood fracture M21.221 - Flexion deformity, right elbow (ICD-10) History of CVA (cerebrovascular accident) (Acute ~2023) -August 202309/19: MRI showing right greater than left diffuse/ innumerable foci of cerebellar and cerebral acute/ subacute infarcts. Overall suggested of a central embolic phenomena. Cardioembolic in nature. Started Eliquis 5 mg twice daily on 09/20. 09/18: Echo revealed a technically limited exam. Normal LV size. Mild increased wall thickness. EF 55-60%. Global systolic RV function is normal. No significant valve disease. 12/10 Dr. George reviewed MRI done 12/09 and thought there were no new lesions, but that there is a phenomenon that can happen that makes the lesions appear to be acute. He said he went through lesion by lesion and was able to match them to lesions already present on MRI from August. Z86.73 - Personal history of transient ischemic attack (TIA), and cerebral infarction without residual deficits (ICD-10) Sleeping difficulty (Acute) Trazodone G47.9 - (ICD-10) Vertigo (Acute) [id number] with post stroke symptoms R42 - Dizziness and giddiness (ICD-10) Paroxysmal atrial fibrillation (Chronic) [id number] Coumadin was switched to apixaban during hospital stay for CVA. I48.0 - Paroxysmal atrial fibrillation (ICD-10) Long-term (current) use of anticoagulants, INR goal 2.0 -3.0 (Chronic) indication: a-fib, duration: lifelong Of previously had been on warfarin which was difficult for him to manage and target INR was difficult to maintain. As of this hospitalization August 2023- warfarin was transition to oral apixaban. Z79.01 - half-way (current) use of anticoagulants (ICD -10) Arrhythmia (Acute) Follows with [facility] 06/15/2023-saw [facility] cardiology. Started amiodarone, Holter monitor indicated that he was having asymptomatic ventricular ectopy including the interval increased burden in ventricular premature complexes as well as multiple runs of ventricular tachycardia. - good rate control, also see acute CVA above for anticoagulation discussion 09/19: DC Coumadin, start Eliquis 5 mg b.i.d. on 09/20 ( consider adjusting dose for age and kidney function in 2 years). Continue amiodarone, metoprolol. 09/21: Adjusted amiodarone from 200-100 mg daily. Metoprolol was reduced from 50 mg down to 25 mg daily. 09/23/2023: on amiodarone 100mg. bradycardia improved. 11/07/2023-patient was seen in clinic. He had resumed his home dose of amiodarone 200 mg and metoprolol 50 mg daily. I49.9 - Cardiac arrhythmia, unspecified (ICD-10) Hypertension (Chronic) 05/16/2024- patient currently on amiodarone 100, losartan 50, metoprolol 50 mg, or some might 5 mg every other day, 10 mg opposite I10 - Essential (primary) hypertension (ICD-10) Hemorrhoids (Acute) anusol suppository; topical hydrocortisone. soften stools with miralax. Hold apixaban if rectal bleeding from hemorrhoids is brisk were continuous. K64.9 - Unspecified hemorrhoids (ICD-10) Cerebrovascular disease (Chronic) Aspirin, statin I67.9 - Cerebrovascular disease, unspecified (ICD-10) CKD (chronic kidney disease) (Chronic) baseline kidney function, 1.6-2.0. 08/2023- Per neurology recommendations ( pt had CVA), start Eliquis 5 mg b.i.d., may need to consider reducing to 2.5 mg twice daily in 2 years) N18.9 - Chronic kidney disease, unspecified (ICD-10) Congestive heart failure (Chronic) HFpEF EF 53% 05/23/2023-BNP 996 I50.9 - Heart failure, unspecified (ICD-10) COPD (chronic obstructive pulmonary disease) (Chronic) mild, not on tx 06/15/2023-patient had pulmonary function test showed mild reduced FEV1, compared to previous test there was improvement in the post bronchodilator FVC J44.9 - Chronic obstructive pulmonary disease, unspecified (ICD-10) Coronary artery disease (Chronic) s/p angiogram showing multivessel disease and chronic occlusion of LAD. HI 2015, NSTEMI 04/17. s/p CABG x3 June 2017. Follows with Dr. Everett [facility]. Stress test 01/21/2019- [facility]- negative forischemia with several 3-5 runs of VT. I25.10 - Atherosclerotic heart disease of mechoopda coronary artery without angina pectoris (ICD-10) Coronary artery aneurysm (Chronic) Follows with Dr. Gardner at [facility] - last seen 06/23; follow annually patient on warfarin, lifelong duration, goal 2-3 [id number] showed ejection fracture was improved. He has an enlarged mid ascending aorta diameter of 44 mm, borderline enlarged sinus of Valsalva diameter of 43 mm, mildly enlarged right ventricle, normal left ventricular filling pressure, mildly enlarged left ventricle chamber size, ejection fraction 56% with [id number]-[id number] variability in setting of frequent ventricular ectopic beats. No regional wall motion abnormalities. I25.41 - Coronary artery aneurysm (ICD-10) Frequent PVCs (Chronic) ventricular ectopy, nonsustained vtach I49.3 - Ventricular premature depolarization (ICD-10) Gastroesophageal reflux (Chronic) K21.9 - Gastro-esophageal reflux disease without esophagitis (ICD-10) Hyperlipidemia (Chronic) 12/10/2023- Increase rosuvastatin 10mg TID hx of atorvastatin E78.5 - Hyperlipidemia, unspecified (ICD-10) Partial symptomatic epilepsy with complex partial seizures, intractable, without status epilepticus ( Chronic) Continue Keppra, seizure precautions G40.219 - Localization-related (focal) (partial) symptomatic epilepsy and epileptic syndromes with complex partial seizures, intractable, without status epilepticus (ICD-10) Former smoker (Chronic) Quit [id number] CT lung cancer screen- no concerning pulmonary nodules Z87.891 - Personal history of nicotine dependence (ICD- 10) Abdominal aortic aneurysm (AAA) (Chronic) 03/17/22-Impression: Fusiform aneurysm of the distal abdominal aorta measuring 3.1 x 3.5 cm in transverse dimensions and extending over a length of 5. 4 cm. I71.40 - Abdominal aortic aneurysm, without rupture, unspecified (ICD-10) Ascending aortic aneurysm (Chronic) 03/20/2022-CT chest shows dilated ascending aorta 4.2 cm [id number] was completed but there is no reference of the aorta I71.21 - Aneurysm of the ascending aorta, without rupture (ICD-10) Obstructive sleep apnea treated with continuous positive airway pressure (CPAP) (Chronic) CPAP G47.33 - Obstructive sleep apnea (adult) (pediatric) ( ICD-10) Z99.89 - Dependence on other enabling machines and devices (ICD-10) Medical History (Updated 05/16/24 @ 11:36 by Yohana Watkins PA-C) Bradycardia R00.1 - Bradycardia, unspecified (ICD-10) History of CVA (cerebrovascular accident) (~08/2023) Z86.73 - Personal history of transient ischemic attack (TIA), and cerebral infarction without residual deficits (ICD-10) Ulnar neuropathy G56.20 - Lesion of ulnar nerve, unspecified upper limb (ICD-10) Arrhythmia I49.9 - Cardiac arrhythmia, unspecified (ICD-10) Former smoker Z87.891 - Personal history of nicotine dependence (ICD- 10) Hyperlipidemia E78.5 - Hyperlipidemia, unspecified (ICD-10) Frequent PVCs I49.3 - Ventricular premature depolarization (ICD-10) Coronary artery aneurysm I25.41 - Coronary artery aneurysm (ICD-10) Cerebrovascular disease I67.9 - Cerebrovascular disease, unspecified (ICD-10) Ribs, multiple fractures S22.49XA - Multiple fractures of ribs, unspecified side , initial encounter for closed fracture (ICD-10) BPPV (benign paroxysmal positional vertigo) H81.10 - Benign paroxysmal vertigo, unspecified ear ( ICD-10) Surgical History History of three vessel coronary artery bypass Z95.1 - Presence of aortocoronary bypass graft (ICD-10) History of surgery on right wrist Home Exercise Home Exercise Access Code: [email or web address] Comments URL: [email or web address] Date: 09/05/2024 Prepared by: Kemi Mckeon Exercises - Sit to Stand Without Arm Support - 1-3 x daily - 5-7 x weekly - 1-3 sets - 10-20 reps - strength: 5-10 sec hold - Step Sideways - 1-3 x daily - 5-7 x weekly - 1-3 sets - 10-20 reps - strength: 5-10 sec hold - Standing March with Counter Support - 5-7 x weekly - Standing Hip Abduction with Counter Support - 2 x daily - 5-7 x weekly - 2-3 sets - 10-20 reps - Standing Hip Extension with Counter Support - 2 x daily - 5-7 x weekly - 2-3 sets - 10-20 reps Objective Other/Pertinent amb with SPC very slow, wide base, lateral shift, mod Objective path deviation. MMT Hip flex 5 Quad 5 HS 5 Ankle 5 Abduct 5 Adduct 5 Edema R calf more than L Cervical rotation 58 UE ROM as before Very tight HS ext R = 30, L = 50 cramp Resting head L tilt 25 degrees Convergence 20? through top glasses 10? with bifocal. Smooth pursuit loses it with down, Return to sit vertical saccades Functional Test Dizziness Handicap Inventory Summary Performed & Score P1. Does looking up increase your problem? Looking up sometimes increases problem (2 points) E2. Because of your problem, do you feel frustrated? Sometimes feel frustrated because of problem (2 points) F3. Because of your problem, do you restrict your travel for business or pleasure? Dizziness sometimes restricts travel (2 points) P4. Does walking down the aisle of a supermarket increase your problem? Walking in the aisle of a supermarket never increases problem (0 points) F5. Because of your problem, do you have difficulty getting into or out of bed? Always have difficulty getting into or out of bed due to problem (4 points) F6. Does your problem significantly restrict your participation in social activities? Dizziness always restricts participation in social activities (4 points) F7. Because of your problem, do you have difficulty reading? Dizziness sometimes causes difficulty reading (2 points) F8. Does performing more ambitious activities increase your problem? Performing more ambitious sometimes increases problem (2 points) E9. Are you afraid to leave your home without having someone accompany you? Because of problem, sometimes afraid to leave your home without having someone accompany you (2 points) E10. Because of your problem, have you been embarrassed in front of others? Sometimes embarrassed in front of others because of problem (2 points) P11. Do quick movements of your head increase your problem? Quick movements of head sometimes increase problem (2 points) F12. Because of your problem, do you avoid heights? Always avoid heights because of problem (4 points) P13. Does turning over in bed increase your problem? Turning over in bed sometimes increases problem (2 points) F14. Is it difficult for you to do strenuous housework or yard work? It is always difficult to do strenuous housework or yard work (4 points) E15. Are you afraid people may think that you are intoxicated? Sometimes afraid people may think that you are intoxicated (2 points) F16. Because of your problem, is it difficult for you to go for a walk by yourself? It is sometimes difficult to go for a walk by yourself (2 points) The tools listed on this website do not substitute for the informed opinion of a licensed physician or other health care provider. All scores should be re-checked. Please see our full Terms of Use. P17. Does walking down a sidewalk increase your problem ? Walking down a sidewalk never increases problem (0 points) E18. Because of your problem, is it difficult for you to concentrate? It is sometimes difficult to concentrate (2 points) F19. Is it difficult for you to walk around your house in the dark? It is sometimes difficult to walk around house in the dark (2 points) E20. Because of your problem, are you afraid to stay home alone? Never afraid to stay home alone (0 points) E21. Because of your problem, do you feel handicapped? Sometimes feel handicapped (2 points) E22. Has your problem placed stress on your relationship with family/friends? Problem always places stress on relationships with family or friends (4 points) E23. Because of your problem, are you depressed? Sometimes depressed because of problem (2 points) F24. Does your problem interfere with your job or household responsibilities? Problem always interferes with job or household responsibilities (4 points) P25. Does bending over increase your problem? Bending over never increases problem Patient Instructed Yes in Risks/Benefits Neuromuscular Re-Ed Neuromuscular 15 Reeducation Minutes (minutes) Neuromuscular R Rajesh x1 Reeducation Comments lydia/horizontal canal testing. + R posterior. poss L anterior. negative left this date. Treatment Minutes Untimed Code 20 Treatment Minutes Timed Code Treatment 15 Minutes Total Treatment Time 35 Billing Units Neuromuscular 1 Reeducation Units Re-Evaluation Units 1 Assessment/Impression Assessment/ Marino is a very pleasant 79 yo male returning with Impression recurrent vertigo, debility/weakness and imbalance. He does not note onset of any unusual symptoms, but does note the spot in his right eye from 'a clot' is still quite bothersome, his blood pressure has been elevated at times > 190/100 but has been intermittently for past few weeks, and has noticed recurrence of positional vertigo. Today he presents with + R posterior canalithiasis however upon sitting he did have vertical nystagmus, also possibly noted in 2nd position of Right rajesh though quite difficult to discern with naked eye if was torsional or straight vertical. Straight vertical could indicate central nervous system involvement and while he does have hx of stroke and TIA I have not seen this is prior sessions. Patient responded well to repositioning with improved symptoms and gait, will assess at next week appt, patient and son instructed to go to ED should other FAST symptoms occur. Primary Functional balance, gait, functional strength loss, floor Limitations transfers, vertigo, hx falls Plan of Care Physical Therapy 1) Pt demo independence/modified I with home program to Goals maximize self care and slow deterioration of function. 2) Pt maintain I transfers, transitions and bed mobility for maximum safe independence in own home through training, equipment and adaptation as appropriate in presence of degenerative disease process . 3) Pt participate in gait and balance training to maximize safest independence with home and community mobility using least restrictive aid. 4) Pt participate in clinic program to maximize strength, stability, balance and conditioning for maximal quality of life while considering/ adapting to disease process. 3) Pt will demo 500' ambulation without limp and with best mechanics and balance to decrease risk of fall with community ambulation for things such as grocery shopping, participation in fitness activities. 4) Pt will demo ability to return to walking and functional strengthening for management of chronic conditions to maximize independence and longevity. Daily Plan of Care Continue per POC
== END 2025-05-06 23:59 | disposition home or self-care (01) ==
PROVIDERS: PCP Physician Assistant Medical; Visit Provider Physician Assistant Medical
DX: R53.81 Other malaise (principal); R42 Dizziness and giddiness; Z91.81 History of falling; Z51.89 Encounter for other specified aftercare
CPT/HCPCS: 97110; 97112; 97116; 97162; 97163; 97164

== ENCOUNTER 2025-02-20 11:18 | Emergency (ER) | payer OTHER, SELFPAY ==
--- OUTSIDE RECORDS SUMMARY | 2025-01-16 11:50 | XMS_ITS | Encounter Summary ---
Author Organization [facility] Address [address] [place] [id number] Care Team Providers Care Male Impersonator Name Role Phone Elsewhere, Pcp Primary Care Provider Unavailabl e Reason for Referral * MRI/CAT/PET Scan (Routine) - Closed Specialty Diagnoses / Procedures Referred By Alisia jones Referred To Contact Radiology Diagnoses Shortness Of Breath Procedures CT Chest without IV Contrast Kevin Church M.D. 200 [place] [address] Phone: tel: fax: [facility] Referral ID Status Reason Start Date Expiration Date Visits Re quested Visits Authorized [id number] Closed 12/08/2024 03/10/2026 1 1 Reason for Visit * MRI/CAT/PET Scan (Routine) - Closed Specialty Diagnoses / Procedures Referred By Alisia jones Referred To Contact Radiology Diagnoses Shortness Of Breath Procedures CT Chest without IV Contrast Kevin Church M.D. 200 [place] [address] Phone: tel: fax: [facility] Referral ID Status Reason Start Date Expiration Date Visits Re quested Visits Authorized [id number] Closed 12/08/2024 03/10/2026 1 1 Encounter Details Date Type Department Care Team (Latest Contact Info) Description 01/16/2025 11:50 AM CDT - 01/16/2025 11:59 PM CDT Hospital Encounter Department of Radiology, [facility], in [place], [place] [address] [place] [address] Kevin Church M.D. [address] [place] [address] Shortness Of Breath Discharge Disposition: Home or Self Care Social History Tobacco Use Types Packs/Day Years Used Date Smoking Tobacco: Former Cigarettes 0 0 03/21/2013 - 03/21/2013 Passive Smoke Exposure: Never Smokeless Tobacco: Former Snuff Quit: 07/08/1969 Comments:used tobacco produc ts from when I was about 13 yrs old until about 5 yrs ago. Alcohol Use Standard Drinks/Week Comments Yes 2 (1 standard drink = 0.6 oz pur e alcohol) Not on a regular basis [facility] Utilities Answer Date Recorded In the past 12 months has [employer], gas, oil, or water company threatened to shut off services in your home? No 11/13/2024 Hunger Vital Sign Answer Date Recorded Within the past 12 months, y ou worried that your food would run out before you got the money to buy more. Never true 11/14/19 25 Within the past 12 months, t he food you bought just didn't last and you didn't have money to get more. Never true 11/13/2024 PRAPARE - Transportation Answer Date Re corded In the past 12 months, has l ack of transportation kept you from medical appointments or from getting medications? No 10/30 In the past 12 months, has l ack of transportation kept you from meetings, work, or from getting things needed for daily living? No 11/13/2024 Housing Stability Answer Date Recorded What is your living situation today? I have a [facility] place to live 11/13/2024 Education Answer Date Recorded What is the highest level of school you have completed or the highest degree you have received? 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 apixaban (ELIQUIS) 5 mg tablet Take 5 mg by mouth 2 (two) times a day. ascorbic acid, vitamin C, (Vitamin C) 500 mg tablet Take 500 mg by mouth daily. 10/14/2022 ascorbic acid, vitamin C, 500 mg capsule Take 1 capsule by mouth daily. aspirin [address] tablet Take 81 mg by mouth daily. carvediloL (Coreg) 6.25 mg tablet TAKE 1 TABLET BY MOUTH TWICE DAILY WITH A MEAL /FOOD 05/26/2024 cholecalciferol (Vitamin D3) 125 mcg (5,000 Unit) tablet Take 1 tablet (125 mcg total) by mouth daily. 03/19/2024 cyanocobalamin (Vitamin B-12) 1,000 mcg tablet Take 1,000 mcg by mouth daily. 10/23/2024 ezetimibe (ZETIA) 10 mg tablet Take 1 [...] IN 15 MINUTES 25 tablet 3 08/29/2021 Pacerone 100 mg tablet Take 1 tablet by mouth once daily 90 tablet 3 11/11/2024 pantoprazole (PROTONIX) 40 mg EC tablet Take 40 mg by mouth every morning before breakfast. rosuvastatin (CRESTOR) 10 mg tablet Take 10 mg by mouth 3 (three) times a week. Every Sunday, Sunday, and Sunday 30 tablet 11 12/18/2023 tiotropium (Spiriva Respimat) 2.5 mcg/actuation inhaler Inhale 2 puffs daily. 4 g 5 12/08/2024 valsartan (Diovan) 160 mg tablet Take 160 mg by mouth 2 (two) times a day. 06/13/2024 documented as of this encounter Plan of Treatment Upcoming Encounters Date Type Department Care Team (Latest Contact Info) Description 03/23/2025 7:30 AM CDT Clinical Communication Virtual Review in [place], [place] 200 [place] [address] 03/26/2025 12:00 PM CDT Appointment Department of Laboratory Medicine and Pathology, [facility] in [place], [place] [address] [place] [phone] Emiliana Carrasco M.D. [address] [place] [phone] 03/26/2025 2:30 PM CDT Procedure visit Department of Urology in [place], [place] [address] [place] [phone] Emiliana Carrasco M.D. [address] [place] [phone] 03/27/2025 8:00 AM CDT Office Visit Department of Urology in [place], [place] [address] [place] [phone] Kalin Dumont M.D. [address] [place] [phone] documented as of this encounter Procedures Procedure Name Priority Date/Time Associated Diagnosis Comments CT CHEST WITHOUT IV CONTRAST RAD - Routine (most inpatients and all outpatients) 01/16/2025 1:02 PM CDT Shortness Of Breath documented in this encounter Results * CT Chest without IV Contrast (01/16/2025 1:02 PM CDT) Anatomical Region Laterality Modality Chest, Thoracic RST LOS, Tho racic ARZ LOS, Thoracic FLA LOS N/A Computed Tomography, Compute d Tomography Impressions 01/16/2025 1:18 PM CDT Mild nonspecific interstitial fibrotic changes are stable compared with a prior exam from 2019. Narrative 01/16/2025 1:18 PM CDT EXAM: CT CHEST WITHOUT IV CONTRAST COMPARISON: Cardiac CT 01/07/2019. FINDINGS: Mild groundglass and reticular opacities in the periphery of the right lower lobe posteriorly, left lower lobe laterally, and left upper lobe medially. The findings are of uncertain etiology and have not significantly changed compared with the prior exam from 01/07/2019 given technical differences between exams. No honeycombing or traction bronchiectasis. The interstitial opacities in the periphery of the right lower lobe persist on the prone images (series 14). Mild air trapping on the expiratory images (series 4). Severe collapse of the right upper lobe bronchus (series 4, image 184) and moderate to severe collapse of the bronchus intermedius (series 4, image 216) on the expiratory images. Small amount of retained mucus/secretions in the lower trachea at the montrell. No emphysematous changes. No change in a few tiny noncalcified lung nodules. Calcified lung granulomas. No enlarged lymph nodes. No pleural effusions. No significant pericardial effusion. Sternotomy and CABG. Stable mild dilation of the ascending aorta measuring 41 mm. ICD leads in the RA and RV. Small nonobstructing right renal calculi. Hepatic cysts. Degenerative changes of the spine. Stable anterior wedging of upper thoracic vertebral bodies. Procedure Note Elijah Mcfarland M.D. - 01/16/2025 EXAM: CT CHEST WITHOUT IV CONTRAST COMPARISON: Cardiac CT 01/07/2019. FINDINGS: Mild groundglass and reticular opacities in the periphery of the rightlower lobe posteriorly, left lower lobe laterally, and left upper lobemedially. The findings are of uncertain etiology and have notsignificantly changed compared with the prior exam from 01/07/2019 given technical differences between exams. No honeycombingor traction bronchiectasis. The interstitial opacities in the periphery ofthe right lower lobe persist on the prone images (series 14). Mild airtrapping on the expiratory images (series 4). Severe collapse of the right upper lobe bronchus (series 4,image 184) and moderate to severe collapse of the bronchus intermedius(series 4, image 216) on the expiratory images. Small amount of retainedmucus/secretions in the lower trachea at the montrell. No emphysematous changes. No change in a few tiny noncalcified lung nodules. Calcified lunggranulomas. No enlarged lymph nodes. No pleural effusions. No significant pericardial effusion. Sternotomy and CABG. Stable mild dilation of the ascending aorta [id number] mm. ICD leads in the RA and RV. Small nonobstructing right renal calculi. Hepatic cysts. Degenerative changes of the spine. Stable anterior wedging of upperthoracic vertebral bodies. IMPRESSION: Mild nonspecific interstitial fibrotic changes are stable compared with aprior exam from 2019. Kevin Church M.D. IMIzaiah CT PROCEDURES Final Re sult documented in this encounter Visit Diagnoses Diagnosis Shortness Of Breath documented in this encounter Care Teams Male Impersonator Relationship Specialty Start Date End Date Elsewhere, Pcp PCP - General Internal Medicine 06/12/24 documented as of this encounter
--- OUTSIDE RECORDS SUMMARY | 2025-01-16 16:30 | XMS_ITS | Encounter Summary ---
Author Organization [facility] Address [address] [place] [address] Care Team Providers Care Cosmetic Consultant Name Role Phone Elsewhere, Pcp Primary Care Provider Unavailabl e Reason for Referral * Outpatient (Routine) - Authorized Specialty Diagnoses / Procedures Referred By Alisia jones Referred To Contact Pulmonary Medicine Kevin Church M.D. [address] [place] [phone] Phone: tel: fax: [facility] Referral ID Status Reason Start Date Expiration Date V isits Requested Visits Authorized [id number] Authorized 01/18/2025 07/20/2026 1 1 Reason for Visit * Outpatient (Routine) - Closed Specialty Diagnoses / Procedures Referred By Alisia jones Referred To Contact Pulmonary Medicine Kevin Church M.D. [address] [place] [phone] Phone: tel: fax: [facility] Referral ID Status Reason Start Date Expiration Date Visits Re quested Visits Authorized [id number] Closed 12/08/2024 06/09/2026 1 1 Encounter Details Date Type Department Care Team (Late st Contact Info) Description 01/16/2025 4:30 PM CDT Office Visit Division of Pulmonary Medicine in [place], [place] [address] [place] [address] Kevin Church M.D. [address] [place] [address] Chronic Obstructive Pulmonary Disease (HCC) (Primary Dx) Social History Tobacco Use Types Packs/Day Years [...] e alcohol) Not on a regular basis [facility] Utilities Answer Date Recorded In the past 12 months has e [employer], gas, oil, or water [employer] threatened to shut off services in your home? No 11/13/2024 Hunger Vital Sign Answer Date Recorded Within the past 12 months, y ou worried that your food would run out before you got the money to buy more. Never true 11/14/19 Within the past 12 months, t he [...] your living situation today? [facility] 11/13/2024 Education Answer Date Recorded What is the highest level of school you have completed or the highest degree you have received? 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 Gender Identity Male 12/20/2017 11:12 AM CDT Sexual Orientation Straight 12/20/2017 11 :12 AM CDT documented as of this encounter Last Filed Vital Signs Vital Sign Reading Time Taken Comments Blood Pressure 130/74 01/16/2025 4:26 PM CDT Pulse 70 01/16/2025 4:26 PM CDT Temperature 36.3 C (97.3 F) 01/16/2025 4:26 PM CDT Respiratory Rate - - Oxygen Saturation 98% 01/16/2025 4:26 PM CDT Inhaled Oxygen Concentration - - Weight 90.8 kg (200 lb 1.1 oz) 01/16/2025 4:26 P M CDT Height 162.6 cm (5' 4.02) 01/16/2025 4:26 PM CD T Body Mass Index 34.32 01/16/2025 4:26 PM CDT documented in this encounter Progress Notes * Kevin Church M.D. - 01/16/2025 4:30 PM CDT PULMONARY MEDICINE PROGRESS NOTE SUBJECTIVE HISTORY OF PRESENT ILLNESS Patient is a 79 y.o. male who presents for return visit. He has been taking Spiriva Respimat faithfully. He feels that it has resulted in signficintan substantial improvement in his dyspnea and he describes activities such as using motorbike that were previously limited due to dyspnea but he is nowable to do. No significant interval respiratory illness or exacerbation. OBJECTIVE VITAL SIGNS BP 130/74 (BP Location: Left arm, Patient Position: Sitting, Cuff Size: Regular) Pulse 70 Temp 36.3 ??C (Temporal) Ht 162.6 cm Wt 90.8 kg SpO2 98% BMI 34.32 kg/m?? PHYSICAL EXAMINATION Gen: Alert. NAD. Pulm: Fairly clear to auscultation bilaterally ASSESSMENT / PLAN 1. COPD 2. 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 JOSH compliant with CPAP He is generally doing subjectively well. He is reporting reduced dyspnea and improved exertional capacity with the Spiriva Respimat inhaler which we will continue. We discussed that his CT scan results from today are reassuring with no new or concerning findings including no findings indicative of amiodarone pulmonary toxicity. I suggested no change to the plan of care including continuing Spiriva Respimat. Discussed that continued aerobic exercise program would provide benefit. A return visit in 4-6 months would be reasonable or sooner if any new or progressive symptoms. Kevin Church M.D. documented in this encounter Plan of Treatment Upcoming Encounters Date Type Department Care Team (Latest Contact Info) Description 03/23/2025 7:30 AM CDT Clinical Communication Virtual Review in [place], [place] 200 [place] [address] 03/26/2025 12:00 PM CDT Appointment Department of Laboratory Medicine and Pathology, [facility] in [place], [place] [address] [place] [phone] Emiliana Carrasco M.D. [address] [place] [phone] 03/26/2025 2:30 PM CDT Procedure visit Department of Urology in [place], [place] [address] [place] [phone] Emiliana Carrasco M.D. [address] [place] [phone] 03/27/2025 8:00 AM CDT Office Visit Department of Urology in [address] [phone] Kalin Dumont M.D. [address] [place] [phone] Scheduled Referrals Name Type Priority Associated Diagnoses Orde r Schedule Pulmonary Medicine office visit (clinic) Outpatient Referral Routine Expected: 04/20/2025, Expires: 04/20/2026 documented as of this encounter Visit Diagnoses Diagnosis Chronic Obstructive Pulmonary Disease (HCC)- Primary documented in this encounter Care Teams Cosmetic Consultant Relationship Specialty Start Date End Date Elsewhere, Pcp PCP - General Internal Medicine 06/12/24 documented as of this encounter
--- OUTSIDE RECORDS SUMMARY | 2025-02-04 07:40 | XMS_ITS | Encounter Summary ---
Author Organization [facility] Address [address] [place] [id number] Care Team Providers Care Bread Icer Name Role Phone Elsewhere, Pcp Primary Care Provider Unavailabl e Encounter Details Date Type Department Care Team (Latest Contact Info) Description 02/04/2025 7:40 AM CDT - 02/04/2025 11:59 PM CDT Hospital Encounter Department of Cardiovascular Diseases in [place], [place] [address] [place] [address] Hilario Redman M.D. [address] [place] [address] Discharge Disposition: Home or Self Care Social [...] e alcohol) Not on a regular basis [facility] Utilities Answer Date Recorded In the past 12 months has [employer], gas, oil, or water [employer] threatened to shut off services in your [...] your living situation today? I have a [facility] place to live 11/13/2024 Education Answer Date Recorded What is the highest level of school you have completed or the highest degree you have received? 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, in [place], [place] [address] [place] [phone] Emiliana Carrasco M.D. [address] [place] [phone] 03/26/2025 2:30 PM CDT Procedure visit Department of Urology in [place], [place] [address] [place] [phone] Emiliana Carrasco M.D. [address] [place] [phone] 03/27/2025 8:00 AM CDT Office Visit Department of Urology in [place], [place] [address] [place] [address] Kalin Dumont M.D. [address] [place] [address] documented as of this encounter Procedures Procedure Name Priority Date/Time Associated Diagnosis Comments INTERFACED REMOTE DEVICE CHECK Routine 02/04/2025 7:40 AM CDT documented in this encounter Results * CAR CARDIAC DEVICE INTERROGATION (02/04/2025 7:40 AM CDT) Date Time Interrogation Session [id number] [facility] Type Interrogation Session Remote Scheduled [facility] Implantable Pulse Generator [employer] [facility] Implantable Pulse Generator Type Defibrillator [facility] Implantable Pulse Generator Model D533 [facility] Implantable Pulse Generator Serial Number [id number] [facility] Implantable Pulse Generator Implant Date 20240319 [facility] Battery Remaining Percentage 100.00 % [facility] Battery Remaining Longevity 156.0 mo [facility] Battery Status Beginning of Service [facility] Capacitor Charge Time 10.000 [facility] Chandrakant Statistic RA Percent Paced 87.00 [facility] Chandrakant Statistic RV Percent Paced 6.00 [facility] Atrial Tachy Statistic AT/AF [place] Percent 0.00 [facility] Lead Channel Sensing Intrinsic Amplitude 4.600 [facility] Lead Channel Setting Sensing Sensitivity 0.25 [facility] Lead Channel Impedance Value 570 [facility] Lead Channel Measurements Date and Time 20250203 [facility] Lead Channel Setting Pacing Amplitude 2.000 [facility] Lead Channel Setting Pacing Pulse Width 0.4 [facility] Lead Channel Sensing Intrinsic Amplitude 6.800 [facility] Lead Channel Setting Sensing Sensitivity 0.60 [facility] Lead Channel Impedance Value 350 [facility] Lead Channel Pacing Threshold Amplitude 0.600 [facility] Lead Channel Pacing Threshold Pulse Width 0.4 [facility] Lead Channel Measurements Date and Time 20250202 [facility] Lead Channel Setting Pacing Amplitude 2.000 [facility] Lead Channel Setting Pacing Pulse Width 0.4 [facility] Chandrakant Setting Mode (NBG Code) DDDR [facility] Setting Lower Rate Limit 70 [facility] Chandrakant Setting AT Mode Switch Rate 170 [facility] Chandrakant Setting Maximum Tracking Rate 120 [facility] Chandrakant Setting Maximum Sensor Rate 120 [facility] Chandrakant Setting PAV Delay 120 [facility] Chandrakant Setting [place] Delay 100 [facility] Therapy Statistic Recent Shocks Delivered 0 [facility] Therapy Statistic Recent Shocks Aborted 0 [facility] Therapy Statistic Recent ATP Delivered 0 [facility] Murj Shock Measured Impedance 71 [facility] Lead Channel Setting Sensing Polarity Bipolar [facility] Lead Channel Setting Sensing Polarity Bipolar [facility] Lead Channel Setting Pacing Polarity Bipolar [facility] Lead Channel Setting Pacing Polarity Bipolar [facility] Lead Channel Pacing Threshold Polarity Bipolar [facility] Lead Channel Pacing Threshold Polarity Bipolar [facility] Zone Setting Type Category [...] 2 [facility] Implantable Lead [employer] [facility] Implantable Lead Model 7841-52 [facility] Implantable Lead Location Right [employer] [facility] Implantable Lead Connection Status Connected [facility] Implantable Lead Serial Number [id number] [facility] Implantable Lead Implant Date 20240319 [facility] Implantable Lead Polarity Type Bipolar Lead [facility] Implantable Lead Special Function Lead length: 52.00 cm [facility] Implantable Lead [employer] [facility] Implantable Lead Model 0672-59 [facility] Implantable Lead Location Right Ventricle [facility] Implantable Lead Connection Status Connected [facility] Implantable Lead Serial Number [id number] [facility] Implantable Lead Implant Date 20240319 [facility] Implantable Lead Polarity Type Unknown [facility] Implantable Lead Special Function Lead length: 59.00 cm [facility] Anatomical Region Laterality Modality Other 02/04/2025 2:09 PM CDT Impressions 02/04/2025 2:09 PM CDT Encounter Impression: Title: Normal Remote: No Events * Normal Device Function * Alerts or events: None * Battery: Battery is at 100%, 13.00 yrs * Sensing, impedance and thresholds reviewed * Programmed parameters reviewed * Presenting rhythm reviewed * Heart Rate Histograms reviewed * No significant changes noted Title: Normal Remote: No Events * Normal Device Function * Alerts or events: None * Battery: Battery is at 100%, 13.00 yrs * Sensing, impedance and thresholds reviewed * Programmed parameters reviewed * Presenting rhythm reviewed and reports AP-VS at 66 bpm. * Heart Rate Histograms reviewed * No significant changes noted Plan: Routine remote follow up and as needed. This patient underwent device interrogation. I agree that the device interrogation was medically indicated to provide appropriate care and continue routine device interrogations as indicated. Encounter Summary: This report includes 1 transmission that was received on 2025-02-04. Battery, lead impedance, sensing amplitude and pacing threshold data was reviewed. Narrative Procedure Note Hilario Redman M.D. - 02/04/2025 IMPRESSION: Encounter Impression: Title: Normal Remote: No Events * Normal Device Function * Alerts or events: None * Battery: Battery is at 100%, 13.00 yrs * Sensing, impedance and thresholds reviewed * Programmed parameters reviewed * Presenting rhythm reviewed * Heart Rate Histograms reviewed * No significant changes noted Title: Normal Remote: No Events * Normal Device Function * Alerts or events: None * Battery: Battery is at 100%, 13.00 yrs * Sensing, impedance and thresholds reviewed * Programmed parameters reviewed * Presenting rhythm reviewed and reports AP-VS at 66 bpm. * Heart Rate Histograms reviewed * No significant changes noted Plan: Routine remote follow up and as needed. This patient underwent device interrogation. I agree that the deviceinterrogation was medically indicated to provide appropriate care andcontinue routine device interrogations as indicated. Encounter Summary: This report includes 1 transmission that was receivedon 2025-02-04. Battery, lead impedance, sensing amplitude and pacingthreshold data was reviewed. Hilario Redman M.D. CV IMPLANTABLE CARDIAC DEVICE Edited Result - Final documented in this encounter Visit Diagnoses Not on filedocumented in this encounter Care Teams Bread Icer Relationship Specialty Start Date End Date Elsewhere, Pcp PCP - General Internal Medicine 06/12/24 documented as of this encounter
[2025-02-20] VITALS (15 sets, daily range): BP systolic 133–185; BP diastolic 90–107; PULSE 69–72; RESP 10–18; TEMP 36.6; O2SAT 92–98; BMI 31.3
--- NOTE | 2025-02-20 11:43 | ED.GENADULT ---
HPI - General Adult General Chief complaint: Neuro Symptoms/Altered Deficit Stated complaint: right eye issues Time Seen by Provider: 02/20/25 11:25 History of Present Illness HPI narrative: 79 year white male with history of prior stroke. He has had a vertebral artery narrowing on a prior CTA of his neck and head. 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 Had no focal weakness family reported he could not remember if he had a stroke before. Questionable mild confusion but he does not appear confused now is alert and oriented to person place and time. This started about 830 this morning. He has had no weakness in arms or legs. No facial asymmetry. The patient is got a history of an AICD history paroxysmal atrial fib congestive heart failure chronic kidney disease, ascending aortic aneurysm. The patient is on apixaban amiodarone carvedilol aspirin looks like Lamictal nitroglycerin as needed statin torsemide valsartan. Related Data Home Medications ?Medication ?Instructions ?Recorded ?Confirmed nitroglycerin 0.4 mg sublingual 0.4 mg sublingual Q5M PRN 02/02/22 10/22/24 tablet levetiracetam 500 mg tablet 500 mg PO BID 03/13/22 10/22/24 (Keppra) ascorbic acid (vitamin C) 500 mg 500 mg PO DAILY 10/14/22 10/22/24 tablet acetaminophen 325 mg tablet 650 mg PO Q6H PRN 09/19/23 10/22/24 aspirin 81 mg tablet,delayed 81 mg PO DAILY 09/19/23 10/22/24 release cholecalciferol (vitamin D3) 125 125 mcg PO DAILY 09/19/23 10/22/24 mcg (5,000 unit) capsule amiodarone 100 mg tablet 100 mg PO QDAY 12/13/23 10/22/24 Previous Rx's ?Medication ?Instructions ?Recorded meclizine 25 mg tablet 25 mg PO TID PRN dizziness #90 tabs 10/10/23 rosuvastatin 10 mg tablet 10 mg PO 3XW #45 tabs 05/28/24 apixaban 5 mg tablet (Eliquis) 5 mg PO BID #180 tabs 08/25/24 ezetimibe 10 mg tablet 10 mg PO DAILY for cholesterol #90 10/22/24 tabs cyanocobalamin (vitamin B-12) 1,000 mcg PO QDAY #90 tabs 10/23/24 1,000 mcg tablet torsemide 5 mg tablet 5 - 10 mg (1 - 2 x 5 mg) PO QAM 11/12/24 #135 tabs valsartan 160 mg tablet 160 mg PO BID #180 tabs 12/11/24 carvedilol 6.25 mg tablet 9.375 - 12.5 mg (1.5 - 2 x 6.25 01/07/25 mg) PO BID #315 tabs pantoprazole 40 mg tablet,delayed 40 mg PO DAILY #90 tabs 02/11/25 release Allergies Allergy/AdvReac Type Severity Reaction Status Date / Time amlodipine Allergy Severe hives/rash Verified 02/20/25 12:20 Pkkdnyh-EDG-QkH Reductase AdvReac Intermediate myalgia Verified 02/20/25 12:20 Inhibitor iothalamate Allergy Severe had to do Uncoded 02/20/25 12:20 chest compressions and shock heart with angio dye Review of Systems Status of ROS: Reports: 6 or more systems reviewed and unremarkable except as noted in History and below PFSH [facility] Medical History Bradycardia ?R00.1 - Bradycardia, unspecified (ICD-10) History of CVA (cerebrovascular accident) (~08/2023) ?Z86.73 - Personal history of transient ischemic attack (TIA), and cerebral infarction without residual deficits (ICD-10) Ulnar neuropathy ?G56.20 - Lesion of ulnar nerve, unspecified upper limb (ICD-10) Arrhythmia ?I49.9 - Cardiac arrhythmia, unspecified (ICD-10) Former smoker ?Z87.891 - Personal history of nicotine dependence (ICD-10) Hyperlipidemia ?E78.5 - Hyperlipidemia, unspecified (ICD-10) 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 - Ventricular premature depolarization (ICD-10) Coronary artery aneurysm ?I25.41 - Coronary artery aneurysm (ICD-10) Cerebrovascular disease ?I67.9 - Cerebrovascular disease, unspecified (ICD-10) Ribs, multiple fractures ?S22.49XA - Multiple fractures of ribs, unspecified side, initial encounter for closed fracture (ICD-10) BPPV (benign paroxysmal positional vertigo) ?H81.10 - Benign paroxysmal vertigo, unspecified ear (ICD-10) Surgical History History of three vessel coronary artery bypass ?Z95.1 - Presence of aortocoronary bypass graft (ICD-10) History of surgery on right wrist ?Z98.890 - Other specified postprocedural states (ICD-10) History of carpal tunnel surgery of left wrist ?Z98.890 - Other specified postprocedural states (ICD-10) History of ankle surgery ?Z98.890 - Other specified postprocedural states (ICD-10) Family History Mother Asthma Maternal Grandmother Diabetes Family/Other Cardiomyopathy Father High blood pressure Social History Narrative: . is undergoing treatment for Multiple Myeloma and has some cognitive impairment. Son, Jelani, lives with them and sets up meds for the patient and his . Son works during the day and stops by the house or calls 1-5 times during the work day to check on them. Does not use illicit drugs Former smoker- quit in 2011 Occasional alcohol consumption Can ambulate without a walker but uses a four-wheel walker when he goes on longer walks so he can stop and rest. What is your current living situation?: I presently have a place to live Problems where you live: no known problems Problems where you live details: n/a In the past 12 months, utilities in danger of being shut off: no In past 12 months, lack of transportation kept you from medical appts, meetings, work, or getting things needed for daily living: no In the past 12 mos, have been you worried that your food would run out before you had money to buy more?: never true In the past 12 mos, the food you bought just didn't last and you didn't have money to buy more?: never true Highest level of school completed/degree received: Associate degree: occupational, technical, vocational program Smoking Status: Former smoker Do you use any of these nicotine containing products: None Second hand tobacco smoke exposure: No How often do you have a drink containing alcohol: never How many standard drinks containing alcohol do you have on a typical day: 1 or 2 How often do you have six or more drinks on one occasion: Never AUDIT-C Alcohol total score: 0 Non-prescribed substance use: denies use How often does anyone, including family, friends and others, physically hurt you: never How often does anyone, including family, friends and others, insult or talk down to you: never How often does anyone, including family, friends and others, threaten you with harm: never How often does anyone, including family, friends and others, scream or curse at you: never service: No Exam Narrative: Exam Narrative: Objective: Patient's vital signs are being obtained Alert orient x3 No facial asymmetry noted, no forehead muscle strength weakness no asymmetry of the mouth. Tongue protrudes midline. Neck is supple Chest is clear Heart rhythm regular with 2/6 systolic murmur. Extremities are no edema neurologic nonfocal good strength is upper lower extremities no hand drift bilateral with arms extended, no leg weakness. Const: Vital Signs, click to edit/add: Vital Signs - 24 hr 02/20/25 11:30 02/20/25 12:10 02/20/25 12:11 Temperature 97.8 F Pulse Rate 71 71 Pulse Rate [Pulse Oximeter] 69 Respiratory Rate 16 18 Blood Pressure 185/100 H Blood Pressure [Ri ght Upper Arm] 133/90 H Pulse Oximetry 97 92 96 Oxygen Delivery Me thod Room Air 02/20/25 12:15 02/20/25 12:23 02/20/25 12:29 Temperature Pulse Rate 71 70 Pulse Rate [Pulse Oximeter] Respiratory Rate 18 Blood Pressure 146/92 H Blood Pressure [Ri ght Upper Arm] Pulse Oximetry 98 92 98 Oxygen Delivery Me thod 02/20/25 12:30 02/20/25 12:45 02/20/25 12:47 Temperature Pulse Rate 72 70 69 Pulse Rate [Pulse Oximeter] Respiratory Rate 16 Blood Pressure 135/101 H Blood Pressure [Ri ght Upper Arm] Pulse Oximetry 95 97 97 Oxygen Delivery Me thod 02/20/25 13:07 02/20/25 13:15 02/20/25 13:16 Temperature Pulse Rate Pulse Rate [Pulse Oximeter] Respiratory Rate 14 13 12 Blood Pressure 161/107 H Blood Pressure [Ri ght Upper Arm] Pulse Oximetry Oxygen Delivery Me thod 02/20/25 13:17 02/20/25 13:30 02/20/25 13:32 Temperature Pulse Rate Pulse Rate [Pulse Oximeter] Respiratory Rate 10 L 15 Blood Pressure 150/93 H Blood Pressure [Ri ght Upper Arm] Pulse Oximetry Oxygen Delivery Me thod Course Vital Signs Vital signs: Initial Vital Signs Temperature 97.8 F 02/20/25 11:30 Temperature Source Temporal Artery Scan 02/20/25 11:30 Pulse Rate 69 02/20/25 11:30 Respiratory Rate 16 02/20/25 11:30 Blood Pressure 133/90 H 02/20/25 11:30 Blood Pressure Mean 104 02/20/25 11:30 Blood Pressure Position Sitting 02/20/25 11:30 Pulse Oximetry 97 02/20/25 11:30 Oxygen Delivery Method Room Air 02/20/25 11:30 Vital Signs Temperature 97.8 F 02/20/25 11:30 Pulse Rate 69 02/20/25 11:30 Respiratory Rate 16 02/20/25 11:30 Blood Pressure 133/90 H 02/20/25 11:30 Pulse Oximetry 97 02/20/25 11:30 Oxygen Delivery Method Room Air 02/20/25 11:30 Temperature 97.8 F 02/20/25 11:30 Pulse Rate 69 02/20/25 12:47 Respiratory Rate 15 02/20/25 13:30 Blood Pressure 150/93 H 02/20/25 13:32 Pulse Oximetry 97 02/20/25 12:47 Oxygen Delivery Method Room Air 02/20/25 11:30 Medications Administered Medications: Discontinued Medications Generic Name Dose Route Start Last Admin Trade Name Freq PRN Reason Stop Dose Admin Diphenhydramine HCl 25 mg 02/20/25 11:53 02/20/25 11:56 Diphenhydramine 50 Mg/Ml Inj IVP 02/20/25 11:54 25 mg ONCE ONE Administration Hydrocortisone Sodium Succinate 100 mg 02/20/25 11:53 02/20/25 12:01 Hydrocortisone Sod Succinate 50 Mg/Ml Inj IVP 02/20/25 11:54 100 mg ONCE ONE Administration Sodium Chloride 500 mls @ 500 mls/hr 02/20/25 11:48 02/20/25 13:37 0.9 % Sodium Chloride 500 Ml IV 02/20/25 12:47 Infused .Q1H ONE Infusion Medical Decision Making MDM Narrative Medical decision making narrative: [age] white male with history of an AICD, 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 History of multiple small emboli on an MRI scan in the past consistent with embolic phenomenon. Patient has been on Eliquis. 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 Peers his gross visual acuity is fairly good will contact Stroke Neurology, get a head CT a and neck CTA as well as a head CT scan. Disposition pending findings and neurology recommendations. Dr. Ramires on-call stroke neurologist was able to review his MRI scan there concerned about his right internal carotid artery from a prior MRI that was somewhat narrow, certainly amaurosis fugax to be a possibility here in might need carotid artery intervention. Will check the above-mentioned studies. Will have Stroke Neurology consultation. Addendum 1:30 p.m.: Dr. Ramires as work with the patient for Stroke Neurology. Feels he might have a retinal migraine. The CTA of his head neck look largely unchanged from prior. No new strokes on head CT. Patient's EKG showed an atrial paced rhythm no other acute changes. He would recommend keeping him on the aspirin and Eliquis, long to go home rest, fluids, recheck with regular doctor next week. Return sooner problems or concerns. Lab Data Labs: Lab Results 02/20/25 02/20/25 02/20/25 Range/Units 11:50 11:56 Unknown WBC 5.39 (4.50-11.00) K/uL RBC 4.91 (4.30-5.90) m/uL Hgb 13.7 (13.5-17.5) gm/dL Hct 42.9 (37.0-53.0) % MCV 87 (80-100) fL MCH 28 (26-34) pg MCHC 32 (32-36) gm/dL RDW Coeff of Maximus 15.8 H (11.5-15.5) % Plt Count 168 (140-440) K/uL Neut % (Auto) 61.9 (42.0-72.0) % Lymph % (Auto) 22.1 (20-44) % [place] % (Auto) 12.4 H (0.0-11.0) % Eos % (Auto) 3.0 (0.0-7.0) % Baso % (Auto) 0.4 (0.0-3.0) % Neut # (Auto) 3.34 (1.7-7.0) K/uL Lymph # (Auto) 1.19 (0.90-2.90) K/uL [place] # (Auto) 0.70 (0.00-0.90) K/UL Eos # (Auto) 0.16 (0.00-0.50) K/uL Baso # (Auto) 0.02 (0.00-0.30) K/uL Abs Immat Gran (auto) 0.01 (0.00-0.30) K/uL Imm/Tot Granulo (auto) 0.2 % INR 1.22 H (0.91-1.10) APTT 31 (23-33) Seconds Sodium 137 (135-149) mmol/L Potassium 4.9 (3.6-5.1) mmol/L Chloride 102 (96-114) mmol/L Carbon Dioxide 27 (20-32) mmol/L Anion Gap 8 (7-15) mEq/L BUN 25 (7-30) mg/dL Creatinine 1.9 H (0.5-1.5) mg/dL Estimated Creat Clear 29.47 Estimated GFR 35 ml/min Glucose 90 (60-115) mg/dL Calcium 9.3 (8.4-10.6) mg/dL Total Bilirubin 0.8 (0.1-1.5) mg/dL Direct Bilirubin 0.3 (0.0-0.5) mg/dL AST 25 (12-35) U/L ALT 14 (4-50) U/L Alkaline Phosphatase 67 (40-150) U/L NT-Pro-B Natriuret Pep 961 H (See Note) pg/mL Total Protein 7.3 (6.0-8.3) g/dL Albumin 4.5 (3.3-5.0) g/dL POC Creatinine 2.3 H (0.6-1.3) mg/dl POC Troponin I 0.01 (0.01-0.04) ng/ml Discharge Plan Discharge Clinical Impression: Retinal migraine, History of stroke Patient Disposition: Home w/ Parent or Adult Condition: Improved Instructions: Ocular Migraine (ED) Additional Instructions: Light activity for the next couple of days, adequate fluid intake, return if problems or concerns, continue your same medications. Activity Level: Light activity Discharge Diet: Low Fat/Low Cholesterol Prescriptions: No Action levetiracetam [Keppra] 500 mg tablet 500 mg PO BID amiodarone 100 mg tablet 100 mg PO QDAY ascorbic acid (vitamin C) 500 mg tablet 500 mg PO DAILY meclizine 25 mg tablet 25 mg PO TID PRN (Reason: dizziness) Qty: 90 0RF Rx Instructions: one tablet three times daily for vertigo acetaminophen 325 mg tablet 650 mg PO Q6H PRN cholecalciferol (vitamin D3) 125 mcg (5,000 unit) capsule 125 mcg PO DAILY aspirin 81 mg tablet,delayed release (DR/EC) 81 mg PO DAILY nitroglycerin 0.4 mg tablet, sublingual 0.4 mg sublingual Q5M PRN Rx Instructions: do not exceed 3 doses per episode rosuvastatin 10 mg tablet 10 mg PO 3XW Qty: 45 3RF Rx Instructions: one tablet, 3 x weekly Eliquis 5 mg tablet 5 mg PO BID Qty: 180 3RF Rx Instructions: one tablet twice daily ezetimibe 10 mg tablet 10 mg PO DAILY Qty: 90 3RF cyanocobalamin (vitamin B-12) 1,000 mcg tablet 1,000 mcg PO QDAY Qty: 90 3RF Rx Instructions: one tablet once daily torsemide 5 mg tablet 5 - 10 mg PO QAM Qty: 135 3RF Rx Instructions: take one tablet every other day; the opposite days take 2 tablet ( alternate 5mg and 10mg every other day) valsartan 160 mg tablet 160 mg PO BID Qty: 180 1RF Rx Instructions: one tablet twice daily for blood pressure STOP losartan carvedilol 6.25 mg tablet 9.375 - 12.5 mg PO BID Qty: 315 0RF Rx Instructions: 12.5 mg ( 2 tablets) in the morning and 9.375 mg ( 1.5 tablets) in the evening must administer with a meal/food pantoprazole 40 mg tablet,delayed release (DR/EC) 40 mg PO DAILY Qty: 90 2RF Rx Instructions: for GERD Follow Up/Referrals: Yohana Watkins PA-C [Primary Care Provider, [facility]] Stand Alone Forms: [employer] Info Instructions
--- NOTE | 2025-02-20 11:48 | CRLHL7_ITS ---
For Patients: As a result of the Century Cures Act, medical imaging exams and procedure reports are released immediately into your electronic medical record. You may view this report before your referring provider. If you have questions, please contact your health care provider. DATE: 02/20/2025 CLINICAL HISTORY: Patient with focal neurological deficits. TECHNIQUE: Standard helical CT image acquisition through the head and neck was performed after intravenous contrast bolus enhancement. 2D and 3D MIP images for post-processing were performed and interpreted on an independent workstation and 3D images were permanently archived. COMPARISON: CT same day. FINDINGS: The origins of the great vessels from the aortic arch are patent. The origin of the right vertebral artery demonstrates mild narrowing. The origin of the left vertebral artery demonstrates mild narrowing. The common carotid arteries are patent There is a mild (less than 50%) stenosis at the origin of the right internal carotid artery by NASCET criteria. This is caused by calcified plaque with a greater than 2mm residual lumen. There is a mild (less than 50%) stenosis at the origin of the left internal carotid artery by NASCET criteria. This is caused by calcified plaque with a greater than 2mm residual lumen. The rest of the cervical segments of the internal carotid arteries are patent up to their intracranial segments. The intracranial segments of the internal carotid arteries are patent. The left vertebral artery is dominant. The cervical segments of the vertebral arteries are patent. The intracranial segments of the vertebral arteries are patent. The middle cerebral arteries are normal without aneurysm or proximal occlusion identified. The anterior cerebral arteries are normal without aneurysm or proximal occlusion identified. The anterior communicating artery is well visualized and appears normal. The basilar artery is normal without aneurysm or occlusion. The posterior cerebral arteries are normal without aneurysm or proximal occlusion. The visualized lung apices are unremarkable The thyroid gland is unremarkable. The soft tissues of the neck are unremarkable. There are degenerative changes in the cervical spine. IMPRESSION: 1. Mild (less than 50%) stenosis at the origin of the right internal carotid artery by NASCET criteria. This is caused by calcified plaque with a greater than 2mm residual lumen. 2. Mild (less than 50%) stenosis at the origin of the left internal carotid artery by NASCET criteria. This is caused by calcified plaque with a greater than 2mm residual lumen. 3. Mild narrowing at the origins of the vertebral arteries bilaterally. Please note that all CT scans at this facility use dose modulation, iterative reconstruction, and/or weight-based dosing when appropriate to reduce radiation dose to as low as reasonably achievable. Dictated by Maxine Gupta MD @ 02/20/2025 4:31:00 PM (Electronically Signed)
--- NOTE | 2025-02-20 11:51 | CRLHL7_ITS ---
For Patients: As a result of the Century Cures Act, medical imaging exams and procedure reports are released immediately into your electronic medical record. You may view this report before your referring provider. If you have questions, please contact your health care provider. INDICATION: Altered mental status, right-sided vision changes. TECHNIQUE: Noncontrast CT of the head with multiplanar reconstruction utilizing bone and soft tissue algorithms. COMPARISON: Imported CT head dated 12/10/2023. FINDINGS: No acute intracranial hemorrhage. 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 Scattered hypoattenuation within the supratentorial white matter typical of chronic small vessel ischemic changes. Chronic infarcts within the right superior frontal gyrus and left lateral cerebellum. Additional chronic lacunar type infarcts within the left caudate head and cerebellar hemispheres. Moderate diffuse parenchymal volume loss. The ventricles are proportional to the sulci. No abnormal extra-axial fluid collection is identified. Intact calvarium and skull base. Symmetric globes. Hyperdense opacification of the left maxillary sinus. IMPRESSION: 1. No acute intracranial hemorrhage or mass effect. 2. Similar moderate diffuse parenchymal volume loss and chronic small vessel ischemic changes. 3. 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 4. Unchanged chronic infarcts within the right superior frontal gyrus and left lateral cerebellum. 5. Additional unchanged chronic lacunar type infarcts within the left caudate head and cerebellar hemispheres. Findings were discussed with Dr. George on 02/20/2025 at 12:16 p.m.. Please note that all CT scans at this facility use dose modulation, iterative reconstruction, and/or weight-based dosing when appropriate to reduce radiation dose to as low as reasonably achievable. Dictated by Brandon Holley MD @ 02/20/2025 12:17:24 PM (Electronically Signed)
[2025-02-20] MEDS: HYDROCORTISONE SOD SUCCINATE 50 MG/ML inj 100 MG IVP (12:01)
[2025-02-20 12:07] LABS: Hematocrit* 42.9 % (37.0-53.0); Hemoglobin* 13.7 gm/dL (13.5-17.5); Immature Granulocytes Abs Auto 0.01 K/uL (0.00-0.30); Immature Granulocytes Pct Auto 0.2 %; Lymphocytes Absolute Auto 1.19 K/uL (0.90-2.90); Mean Corpuscular HGB Conc 32 gm/dL (32-36); Mean Corpuscular Hemoglobin 28 pg (26-34); Mean Corpuscular Volume 87 fL (80-100); RDW Coefficient of Variation % 15.8 % (11.5-15.5); Red Blood Count* 4.91 m/uL (4.30-5.90); White Blood Count* 5.39 K/uL (4.50-11.00)
[2025-02-20 12:08] LABS: Slide Review Reflex No
--- OUTSIDE RECORDS SUMMARY | 2025-02-20 12:15 | XMS_ITS | Clinical Summary ---
Author Organization [facility] Address [address] [place] [id number] Care Team Providers Care Baffle Installer Name Role Phone Donya Baldwin Primary Care Provider [phone] Allergies Active Allergy Reactions Criticality Noted Date Comments Amlodipine Hives High 01/13/2021 Iodinated Contrast Media Anaphylaxis,Other - Describe In Comment Field High 05/10/2016 Cardiac arrest during stent placement Wrsmomn-Bef-Bvx Reductase Inhibitors Other - Describe In Comment Field High 01/03/2022 Medications meclizine (ANTIVERT) 25 mg tabletIndication s:Vertigo Take 1 Tablet (25 mg) by mouth 3 times daily if needed for Vertigo. 30 Tablet 10/03/2023 Active Social History Tobacco Use Types Packs/Day Years Used Date Smoking Tobacco: Never Assessed Interpersonal Safety Answer Date Record ed Are you being hit, kicked, p ushed or yelled at (see row info)? No 10/02/2023 Interpersonal Safety Abuse 12 - 18 Not on file 10/02/2023 Interpersonal Safety Ambulatory Vulnerability No t on file 10/02/2023 Sex and Gender Information Value Date Recorded [...] Health Maintenance Due Date Last Done Comments Tetanus booster 1956 Depression screening for age 12+ 1957 BMI (ht and wt on same day) for age 18+ 1963 Hepatitis C screening for age 18-79 1963 Pneumococcal series for age 50+ (1 of 1 - PCV) 1995 Zoster (shingles) series for age 50+ (1 of 2) 1995 Medicare Wellness for age 65+ 2010 RSV vaccine for adults or (1 - 1-dose 75+ series) 2020 COVID-19 vaccine series ( - 2023- season) 2024 05/18/2022, 05/17/2021, 09/11/2020, Additional history exists Influenza Vaccine (#1) 2025 Hepatitis B series for 19+ Aged Out N o longer eligible based on patient's age to complete this topic Insurance [employer] [place] [address] MEDICARE PART B HB ONLY Advance Directives Documents on File Type Date Recorded 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
--- OUTSIDE RECORDS SUMMARY | 2025-02-20 12:15 | XMS_ITS | Clinical Summary ---
Author Organization [facility] Address [address] [facility] 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
[2025-02-20 12:16] LABS: Albumin* 4.5 g/dL (3.3-5.0); Chloride* 102 mmol/L (96-114)
[2025-02-20 12:17] LABS: Potassium* 4.9 mmol/L (3.6-5.1); Sodium* 137 mmol/L (135-149)
--- OUTSIDE RECORDS SUMMARY | 2025-02-20 12:17 | XMS_ITS | Continuity of Care Document ---
Author Organization [facility] Address [address] [place] [id number] Care Team Providers Care Preventative Maintenance Technician Name Role Phone Elsewhere, Pcp Primary Care Provider Unavailabl e Source Comments Patient records contain information from all sites at [facility]. For routine questions regarding patient records, call [phone] during business hours, M-F 8:00 AM - 5:00 PM Central Time. Record requests for emergency care only can be directed to [phone] at any time.[facility] Encounters Date Type Department Care Team Description 02/04/2025 7:40 AM CDT - 02/04/2025 11:59 PM CDT Hospital Encounter Department of Cardiovascular Diseases in [place], [place] [address] [place] [address] Hilario Redman M.D. Discharge Disposition: Home or Self Care 01/16/2025 11:50 AM CDT - 01/16/2025 11:59 PM CDT Hospital Encounter Department of Radiology, [facility], in [place], [place] [address] [place] [address] Kevin Church M.D. Shortness Of Breath Discharge Disposition: Home or Self Care 01/16/2025 4:30 PM CDT Office Visit Division of Pulmonary Medicine in [place], [place] [address] [place] [phone] Kevin Church M.D. Chronic Obstructive Pulmonary Disease (HCC) (Primary Dx) 12/30/2024 Clinical Communication Department of Urology in [place], [place] [address] [place] [phone] Kalin Dumont M.D. 12/29/2024 8:39 AM CDT - 12/29/2024 11:59 PM CDT Hospital Encounter Department of Laboratory Medicine and Pathology, [facility] in [place], [place] [address] [place] [phone] Kalin Dumont M.D. Incontinence Urinary Discharge Disposition: Home or Self Care 12/29/2024 10:30 AM CDT Comprehensive Visit Department of Urology in [place], [place] [address] [place] [phone] Kalin Dumont M.D. Incontinence Urinary 12/25/2024 11:45 AM CDT Clinical Communication Virtual Review in [place], [place] [address] [place] [address] Pre-visit Intake 12/25/2024 Orders Only Department of Urology in [place], [place] [address] [place] [phone] [facility]continence Urinary 12/22/2024 [facility] [address] [place] [address] Yohana Watkins, P.A. Incontinence Urinary (Primary Dx) 12/08/2024 [facility] [address] [place] [address] Yohana Watkins, P.A. Infarction Cerebral (HCC) (Primary Dx); Dizziness And Giddiness; Presence Cardioverter- Defibrillator (ICD And AICD) 12/08/2024 2:23 PM CDT - 12/08/2024 11:59 PM CDT Hospital Encounter Department of Cardiovascular Diseases in [place], [place] [address] [place] [phone] Laury, Anvi, M.D. Shortness Of Breath; Tachycardia Ventricular Nonsustained (HCC); Atrial Fibrillation Longstanding Persistent (HCC) Discharge Disposition: Home or Self Care 12/08/2024 11:44 AM CDT - 12/08/2024 2:22 PM CDT Hospital Encounter Department of Radiology, [facility] in [place], [place] [address] [place] [address] Arminda Schaeffer M.D. Shortness Of Breath Discharge Disposition: Home or Self Care 12/08/2024 1:30 PM CDT Comprehensive Visit Division of Pulmonary Medicine in [place], [place] [address] [place] [phone] Kevin Church M.D. Shortness Of Breath 11/19/2024 4:00 PM CDT Office Visit Department of Cardiovascular Medicine in [place], [place] [address] [place] [phone] Neha Gardner M.D. 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 Presence Cardioverter- Defibrillator (ICD And AICD); Beat Premature Ventricular Discharge Disposition: Home or Self Care 11/19/2024 11:00 AM CDT - 11/19/2024 11:59 PM CDT Hospital Encounter Department of Laboratory Medicine and Pathology, [facility], in [place], [place] [address] [place] [phone] Arminda Schaeffer M.D. Presence Cardioverter- Defibrillator (ICD And AICD); Beat Premature Ventricular Discharge Disposition: Home or Self Care 11/19/2024 2:00 PM CDT Office Visit Department of Cardiovascular Medicine in [place], [place] [address] [place] [phone] Arminda Schaeffer M.D. Shortness Of Breath (Primary Dx); Tachycardia Ventricular Nonsustained (HCC); Coronary Artery Disease With Stable Angina; Chronic Kidney Disease (CKD), Stage 3b Glomerular Filtration Rate (GFR) 30 To 44 (HCC); Atrial Fibrillation Longstanding Persistent (HCC) 11/10/2024 Refill Department of Cardiovascular Medicine in [place], [place] [address] [place] [phone] Arminda Schaeffer M.D. Med Refill 11/05/2024 9:24 AM CDT - 11/05/2024 11:59 PM CDT Hospital Encounter Department of Cardiovascular Diseases in [place], [place] [address] [place] [phone] Anais Marin M.B.B.S. Discharge Disposition: Home or Self Care 11/05/2024 Clinical Communication Department of Cardiovascular Medicine in [place], [place] [address] [place] [phone] Maureen Kim, RGeetha. Atrial Fibrillation 10/13/2024 Clinical Communication Department of Cardiovascular Medicine in [place], [place] [address] [place] [phone] Neha Gardner M.D. 10/13/2024 Clinical Communication Department of Cardiovascular Medicine in [place], [place] [address] [place] [phone] Package LinerPartha M.D. Echo Move Up Request (CVD) 08/06/2024 12:49 PM AIR CONDITIONING SERVICE TECHNICIAN - 08/06/2024 11:59 PM AIR CONDITIONING SERVICE TECHNICIAN Hospital Encounter Department of Cardiovascular Diseases in [place], [place] [address] [place] [phone] Kemal Miller M.D. Discharge Disposition: Home or Self Care 07/21/2024 Clinical Communication Department of Cardiovascular Medicine in [place], [place] [address] [place] [phone] Neha Gardner M.D. Med Question 07/11/2024 Orders Only Department of Cardiovascular Medicine in [place], [place] [address] [place] [phone] Arminda Schaeffer M.D. 07/08/2024 Refill Department of Cardiovascular Medicine in [place], [place] [address] [place] [phone] Neha Gardner M.D. Med Refill 06/16/2024 8:16 AM AIR CONDITIONING SERVICE TECHNICIAN - 06/16/2024 11:59 PM AIR CONDITIONING SERVICE TECHNICIAN Hospital Encounter Department of Cardiovascular Diseases in [place], [place] [address] [place] [phone] Aaron Galan M.D. Aftercare Cardiac Defibrillator Discharge Disposition: Home or Self Care 06/16/2024 10:00 AM AIR CONDITIONING SERVICE TECHNICIAN Office Visit Department of Cardiovascular Medicine in [place], [place] [address] [place] [phone] Arminda Schaeffer M.D. Beat Premature Ventricular (Primary Dx); Presence Cardioverter- Defibrillator (ICD And AICD); Tachycardia Ventricular Nonsustained (HCC); Coronary Artery Disease With Stable Angina (HCC); Aneurysm Coronary Artery 06/12/2024 2:15 PM AIR CONDITIONING SERVICE TECHNICIAN Clinical Communication Virtual Review in [place], [place] 200 [place] [address] Pre-visit Intake 05/15/2024 Clinical Communication Department of Cardiovascular Medicine in [place], [place] [address] [place] [phone] Neha Gardner M.D. Update on blood pressures and med 05/01/2024 Documentation Department of Cardiovascular Medicine in [place], [place] [address] [place] [phone] Neha Gardner M.D. 05/01/2024 Orders Only Department of Cardiovascular Medicine in [place], [place] [address] [place] [phone] Neha Gardner M.D. 03/24/2024 4:30 PM CDT Office Visit Department of Cardiovascular Medicine in [place], [place] [address] [place] [phone] Kemal Miller M.D. Presence Cardioverter- Defibrillator (ICD And AICD) (Primary Dx) 03/21/2024 Documentation Division of Cardiovascular Diseases in [address] [phone] Kemal Miller M.D. 03/21/2024 Clinical Communication Department of Cardiovascular Medicine in [place], [place] [address] [place] [phone] Package LinerPartha M.D. 03/21/2024 7:51 AM CDT - 03/21/2024 11:59 PM CDT Hospital Encounter Department of Cardiovascular Diseases in [place], [place] [address] [place] [phone] Wesley Varghese M.D., Ph.D. Discharge Disposition: Home or Self Care 03/20/2024 Orders Only Department of Cardiovascular Medicine in [place], [place] [address] [place] [phone] Edna Harris R.N. Aftercare Cardiac Defibrillator (Primary Dx) 03/20/2024 Clinical Communication Department of Cardiovascular Medicine in [address] [phone] Kemal Miller M.D. DEVICE REGISTRATION (ICD IMPLANT) 03/20/2024 9:56 AM CDT - 03/20/2024 11:59 PM CDT Hospital Encounter Department of Cardiovascular Diseases in [address] [phone] Kemal Miller M.D. Aftercare Cardiac Defibrillator Discharge Disposition: Home or Self Care 03/19/2024 Orders Only Division of Cardiovascular Diseases in [address] [phone] Vickie Leavitt R.N. Aftercare Cardiac Defibrillator (Primary Dx) 03/19/2024 12:19 PM CDT Anesthesia Event Division of Cardiovascular Diseases in [address] [phone] Edu Escalona APRN, DARIELA, D.N.P. Catrachita Farah APRN, DARIELA, D.N.P. 03/19/2024 12:35 PM CDT - 03/19/2024 4:05 PM CDT Surgery Division of Cardiovascular Diseases in [address] [phone] Kemal Miller M.D. DIAGNOSTIC EPS 03/19/2024 10:38 AM CDT - 03/19/2024 6:30 PM CDT Hospital Encounter Division of Cardiovascular Diseases in [place], [place] [address] [place] [phone] Kemal Miller M.D. Tachycardia Ventricular Nonsustained (HCC) Discharge Disposition: Home or Self Care 03/18/2024 3:00 PM CDT Office Visit Department of Cardiovascular Medicine in [place], [place] [address] [place] [phone] Neha Gardner M.D. Tachycardia Ventricular Nonsustained (HCC) (Primary Dx); Coronary Artery Disease With Stable Angina (HCC); Hyperlipidemia 03/18/2024 8:18 AM CDT - 03/18/2024 10:23 AM CDT Hospital Encounter Department of Cardiovascular Diseases in [place], [place] [address] [place] [phone] Kemal Miller M.D. Tachycardia Ventricular Nonsustained (HCC) Discharge Disposition: Home or Self Care 03/18/2024 11:57 AM CDT - 03/18/2024 11:59 PM CDT Hospital Encounter Department of Radiology, [facility], in [place], [place] [address] [place] [phone] Kemal Miller M.D. Tachycardia Ventricular Nonsustained (HCC) Discharge Disposition: Home or Self Care 03/18/2024 10:24 AM CDT - 03/18/2024 11:56 AM CDT Hospital Encounter Department of Laboratory Medicine and Pathology, [facility] in [place], [place] [address] [place] [phone] Kemal Miller M.D. Tachycardia Ventricular Nonsustained (HCC) Discharge Disposition: Home or Self Care 03/18/2024 1:00 PM CDT Office Visit Department of Cardiovascular Medicine in [place], [place] [address] [place] [phone] Ktaie Harvey APRN, C.N.P. Tachycardia Ventricular Nonsustained (HCC) [...] Clinical Communication Department of Cardiovascular Medicine in [place], [place] [address] [place] [phone] Neha Gardner M.D. Ablation Questions 02/14/2024 Clinical Communication Department of Cardiovascular Medicine in [address] [phone] Neha Gardner M.D. Follow-up (Labs today) 02/08/2024 Clinical Communication Department of Cardiovascular Medicine in [place], [place] [address] [place] [phone] Neha Gardner M.D. Blood Pressure (Blood pressure log) 01/18/2024 Clinical Communication Department of Cardiovascular Medicine in [address] [phone] Neha Gardner M.D. Follow-up 01/15/2024 4:26 PM CDT - 01/15/2024 11:59 PM CDT Hospital Encounter Department of Laboratory Medicine and Pathology, [facility] in [place], [place] [address] [place] [phone] Neha Gardner M.D. Ectopy Ventricular Discharge Disposition: Home or Self Care 01/15/2024 3:00 PM CDT Office Visit Department of Cardiovascular Medicine in [address] [phone] Neha Gardner M.D. 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 Med Question 01/07/2024 Orders Only Department of Cardiovascular Medicine in [place], [place] [address] [place] [phone] Neha Gardner M.D. Tachycardia Ventricular Nonsustained (HCC) (Primary Dx); Coronary Artery Disease With Stable Angina (HCC) 01/01/2024 Clinical Communication Department of Cardiovascular Medicine in [place], [place] [address] [place] [phone] Vida Guido R.N. 01/01/2024 Documentation Division of Cardiovascular Diseases in [address] [phone] Kemal Miller M.D. 01/01/2024 Orders Only Division of Cardiovascular Diseases in [address] [address] Kemal Miller M.D. 12/31/2023 Clinical Communication Department of Cardiovascular Medicine in [place], [place] [address] [place] [phone] Neha Gardner M.D. EP study +/- ICD implantation still on? 12/19/2023 Clinical Communication Department of Cardiovascular Medicine in [address] [phone] Neha Gardner M.D. Follow-up 12/18/2023 2:00 PM CDT Office Visit Department of Cardiovascular Medicine in [place], [place] [address] [place] [phone] Neha Gardner M.D. Ectopy Ventricular (Primary Dx); Tachycardia Ventricular Nonsustained (HCC); Hyperlipidemia; Aneurysm Coronary Artery; 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 Failure (HCC) 12/18/2023 11:51 AM CDT - 12/18/2023 11:59 PM CDT Hospital Encounter Department of Cardiovascular Diseases in [place], [place] [address] [place] [address] Kemal Miller M.D. Tachycardia Ventricular Nonsustained (HCC) Discharge Disposition: Home or Self Care 12/04/2023 Clinical Communication Department of Cardiovascular Medicine in [place], [place] [address] [place] [address] Neha Gardner M.D. Follow-up 11/08/2023 Clinical Communication Department of Cardiovascular Medicine in [place], [place] [address] [place] [address] Neha Gardner M.D. Med Question 11/07/2023 Clinical Communication Department of Cardiovascular Medicine in [place], [place] [address] [place] [phone] Package LinerPartha M.D. 10/09/2023 Clinical Communication Department of Cardiovascular Medicine in [place], [place] [address] [place] [address] Jolanta Carranza R.N. 09/26/2023 10:00 AM CDT Virtual Visit Department of Cardiovascular Medicine in [place], [place] [address] [place] [address] Neha Gardner M.D. 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 Coronary Artery Disease With Stable Angina (HCC) (Primary Dx) 08/30/2023 Clinical Communication Department of Cardiovascular Medicine in [place], [place] [address] [place] [phone] Arminda Schaeffer M.D. After Visit Question (EP study) 08/09/2023 9:00 AM AIR CONDITIONING SERVICE TECHNICIAN Comprehensive Visit Department of Cardiovascular Medicine in [place], [place] [address] [place] [phone] Kemal Miller M.D. Tachycardia Ventricular Nonsustained (HCC) (Primary Dx); Ectopy Ventricular; Cardiomyopathy Ischemic; Coronary Artery Disease With Stable Angina (HCC) 07/06/2023 10:50 AM AIR CONDITIONING SERVICE TECHNICIAN - 07/06/2023 11:04 AM AIR CONDITIONING SERVICE TECHNICIAN Hospital Encounter Department of Laboratory Medicine and Pathology, [place], [place] [address] [place] [phone] Neha Gardner M.D. Ectopy Ventricular; Cardiomyopathy Ischemic; Coronary Artery Disease With Stable Angina (HCC) Discharge Disposition: Home or Self Care 07/06/2023 12:46 PM AIR CONDITIONING SERVICE TECHNICIAN - 07/06/2023 11:59 PM AIR CONDITIONING SERVICE TECHNICIAN Hospital Encounter Department of Cardiovascular Diseases in [place], [place] [address] [place] [phone] Neha Gardner M.D. Ectopy Ventricular; Cardiomyopathy Ischemic; Coronary Artery Disease With Stable Angina (HCC) Discharge Disposition: Home or Self Care 07/06/2023 11:05 AM AIR CONDITIONING SERVICE TECHNICIAN - 07/06/2023 12:45 PM AIR CONDITIONING SERVICE TECHNICIAN Hospital Encounter Department of Radiology, [place], [place] [address] [place] [phone] Neha Gardner M.D. Ectopy Ventricular; Cardiomyopathy Ischemic; Coronary Artery Disease With Stable Angina (HCC) Discharge Disposition: Home or Self Care 06/15/2023 Refill Department of Cardiovascular Medicine in [place], [place] [address] [place] [phone] Neha Gardner M.D. Med Refill 06/15/2023 Clinical Communication Department of Cardiovascular Medicine in [place], [place] [address] [place] [phone] Package LinerPartha M.D. Int cons (Int cons/Evaluate for VT ablation) 06/15/2023 8:14 AM AIR CONDITIONING SERVICE TECHNICIAN - 06/15/2023 9:49 AM AIR CONDITIONING SERVICE TECHNICIAN Hospital Encounter Department of Laboratory Medicine and Pathology, [facility] in [place], [place] [address] [place] [phone] Neha Gardner M.D. Coronary Artery Disease With Stable Angina (HCC); Ectopy Ventricular; 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 Failure (HCC); Hyperlipidemia Discharge Disposition: Home or Self Care 06/15/2023 9:50 AM AIR CONDITIONING SERVICE TECHNICIAN - 06/15/2023 11:59 PM AIR CONDITIONING SERVICE TECHNICIAN Hospital Encounter Department of Radiology, [facility], in [address] [phone] Neha Gardner M.D. Coronary Artery Disease With Stable Angina (HCC); Ectopy Ventricular; 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 Failure (HCC); Hyperlipidemia Discharge Disposition: Home or Self Care 06/15/2023 1:00 PM AIR CONDITIONING SERVICE TECHNICIAN Office Visit Department of Cardiovascular Medicine in [address] [phone] Neha Gardner M.D. Ectopy Ventricular (Primary Dx); Cardiomyopathy Ischemic; Coronary Artery Disease With Stable Angina (HCC); Aneurysm Coronary Artery; Hyperlipidemia 06/14/2023 9:15 AM AIR CONDITIONING SERVICE TECHNICIAN Clinical Communication Virtual Review in [address] [address] Pre-visit Intake 05/30/2023 9:00 AM AIR CONDITIONING SERVICE TECHNICIAN Virtual Visit Department of Cardiovascular Medicine in [address] [phone] Neha Gardner M.D. Coronary Artery Disease With Stable Angina (HCC) (Primary Dx); Ectopy Ventricular; 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 Failure (HCC); Hyperlipidemia 05/29/2023 Orders Only Department of Cardiovascular Medicine in [address] [phone] Neha Gardner M.D. Ectopy Ventricular (Primary Dx) 05/28/2023 Clinical Communication Department of Cardiovascular Medicine in [address] [address] Neha Gardner M.D. Notification criteria 05/23/2023 Orders Only Department of Cardiovascular Medicine in [address] [phone] Manpreet Lanier M.D. 05/23/2023 12:49 PM AIR CONDITIONING SERVICE TECHNICIAN - 05/23/2023 11:59 PM AIR CONDITIONING SERVICE TECHNICIAN Hospital Encounter Department of Cardiovascular Diseases in [place], [place] [address] [place] [phone] Neha Gardner M.D. Coronary Artery Disease With Stable Angina (HCC); Ectopy Ventricular; 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 Failure (HCC); Hyperlipidemia Discharge Disposition: Home or Self Care 05/23/2023 12:13 PM AIR CONDITIONING SERVICE TECHNICIAN - 05/23/2023 12:48 PM AIR CONDITIONING SERVICE TECHNICIAN Hospital Encounter Department of Laboratory Medicine and Pathology, [place], [place] [address] [place] [address] Neha Gardner M.D. Coronary Artery Disease With Stable Angina (HCC); Ectopy Ventricular; 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 Failure (HCC); Hyperlipidemia Discharge Disposition: Home or Self Care 05/23/2023 11:17 AM AIR CONDITIONING SERVICE TECHNICIAN - 05/23/2023 12:12 PM AIR CONDITIONING SERVICE TECHNICIAN Hospital Encounter Department of Cardiovascular Diseases in [place], [place] [address] [place] [phone] Neha Gardner M.D. Coronary Artery Disease With Stable Angina (HCC); Ectopy Ventricular; 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 Failure (HCC); Hyperlipidemia Discharge Disposition: Home or Self Care 04/11/2023 Clinical Communication Department of Cardiovascular Medicine in [place], [place] [address] [place] [phone] Neha Gardner M.D. [place] 08/07/2022 8:50 AM AIR CONDITIONING SERVICE TECHNICIAN - 08/07/2022 11:59 PM AIR CONDITIONING SERVICE TECHNICIAN Hospital Encounter Department of Laboratory Medicine and Pathology, [place], [place] [address] [place] [phone] Neha Gardner M.D. Coronary Artery Disease With Stable Angina (HCC) Discharge Disposition: Home or Self Care 08/05/2022 Orders Only Department of Cardiovascular Medicine in [place], [place] [address] [place] [address] Askew, J. Wells, M.D. Coronary Artery Disease With Stable Angina (HCC) (Primary Dx) 06/28/2022 Episode Changes Department of Cardiovascular Medicine in [place], [place] [address] [place] [phone] Donna Swift 06/23/2022 8:30 AM AIR CONDITIONING SERVICE TECHNICIAN Office Visit Department of Cardiovascular Medicine in [place], [place] [address] [place] [phone] Neha Gardner M.D. Coronary Artery Disease With Stable Angina (HCC) (Primary Dx); Ectopy Ventricular; 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 Failure (HCC); Hyperlipidemia 06/09/2022 11:15 AM AIR CONDITIONING SERVICE TECHNICIAN - 06/09/2022 11:53 AM AIR CONDITIONING SERVICE TECHNICIAN Hospital Encounter Department of Laboratory Medicine and Pathology, [facility] in [place], [place] [address] [place] [phone] Neha Gardner M.D. Cardiomyopathy Ischemic; Coronary Artery Disease With Stable Angina (HCC); Aneurysm Coronary Artery; Ectopy Ventricular; Hyperlipidemia Discharge Disposition: Home or Self Care 06/09/2022 2:34 PM AIR CONDITIONING SERVICE TECHNICIAN - 06/09/2022 11:59 PM AIR CONDITIONING SERVICE TECHNICIAN Hospital Encounter Department of Cardiovascular Diseases in [place], [place] [address] [place] [phone] Neha Gardner M.D. Cardiomyopathy Ischemic; Coronary Artery Disease With Stable Angina (HCC); Aneurysm Coronary Artery; Ectopy Ventricular; Hyperlipidemia Discharge Disposition: Home or Self Care 06/09/2022 11:54 AM AIR CONDITIONING SERVICE TECHNICIAN - 06/09/2022 2:33 PM AIR CONDITIONING SERVICE TECHNICIAN Hospital Encounter Department of Cardiovascular Diseases in [place], [place] [address] [place] [phone] Neha Gardner M.D. Cardiomyopathy Ischemic; Coronary Artery Disease With Stable Angina (HCC); Aneurysm Coronary Artery; Ectopy Ventricular; Hyperlipidemia Discharge Disposition: Home or Self Care 06/08/2022 9:45 AM [facility] Clinical Communication Virtual Review in [place], [place] [address] [place] [address] Pre-visit Intake 05/29/2022 Clinical Communication Department of Cardiovascular Medicine in [place], [place] [address] [place] [phone] Package LinerPartha M.D. 05/22/2022 8:15 AM [facility] Clinical Communication Virtual Review in [place], [place] [address] [place] [address] 05/05/2022 Orders Only Department of Cardiovascular Medicine in [place], [place] [address] [place] [phone] Neha Gardner M.D. Cardiomyopathy Ischemic (Primary Dx); Coronary Artery Disease With Stable Angina (HCC); Aneurysm Coronary Artery; Ectopy Ventricular; Hyperlipidemia 05/04/2022 Clinical Communication Department of Cardiovascular Medicine in [place], [place] [address] [place] [phone] Neha Gardner M.D. Follow-up 04/04/2022 [facility] [address] [place] [address] Yohana Watkins P.A. 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 (HCC) (Primary Dx); Abdominal Aortic Aneurysm Without Rupture Unspecified (HCC); Aneurysm Coronary Artery 08/26/2021 Refill Department of Cardiovascular Medicine in [place], [place] [address] [place] [phone] Neha Gardner M.D. Med Refill 08/14/2021 Refill Department of Cardiovascular Medicine in [place], [place] [address] [place] [phone] Neha Gardner M.D. Med Refill 08/01/2021 Remote Monitoring Remote Patient Monitoring [facility] [address] [place] [address] Makenzie Meeks Complex Care Coordination (July Billing ) 07/15/2021 Remote Monitoring Remote Patient Monitoring [facility] [address] [place] [address] Makenzie Meeks Graduation (Patient graduated from the Remote Monitoring program. ) 07/15/2021 Remote Monitoring Remote Patient Monitoring [facility] [address] [place] [address] Kathryn Avitia, R.N. COVID-19 Remote Patient Monitoring; Graduation 07/14/2021 Remote Monitoring Remote Patient Monitoring [facility] [address] [place] [address] Karen Maxwell, R.N. COVID-19 Remote Patient Monitoring; Symptom Assessment 07/14/2021 Remote Monitoring Remote Patient Monitoring [facility] [address] [place] [address] Mabel Brambila M.S.N., R.N. COVID-19 Remote Patient Monitoring; Symptom Assessment 07/13/2021 Remote Monitoring Remote Patient Monitoring [facility] [address] [place] [address] Joo Mckeon, Edgar., C.M.S.R.N., [facility] COVID-19 Remote Patient Monitoring; Symptom Assessment 07/10/2021 Refill Department of Cardiovascular Medicine in [place], [place] [address] [place] [address] Neha Gardner M.D. Med Refill 07/07/2021 Remote Monitoring Remote Patient Monitoring [facility] [address] [place] [address] Megan Clinton Welcome Call (Welcome call completed (bander hand), equipment ordered before 1 pm today, scheduled to arrive 07/08); Patient Education (Complex Care/COVID19, welcome letter, and terms of service sent 07/07) 07/07/2021 Episode Changes Remote Patient Monitoring [facility] [address] [place] [address] Megan Clinton 07/07/2021 Remote Monitoring Remote Patient Monitoring [facility] [address] [place] [address] Karen Maxwell R.N. COVID-19 Remote Patient Monitoring; Intake Assessment 07/06/2021 Episode Changes Remote Patient Monitoring [facility] [address] [place] [address] Kalee Hilton R.N. 07/06/2021 Clinical Communication Division of Community Internal Medicine, [facility], in [place], [place] [address] [place] [phone] Fabian Mckinney M.S., R.N. Results (MWCCT) 07/05/2021 External Outreach Department of Family Medicine in [place], [place] [address] [place] [address] Tana Brunner M.D. Contact With And (Suspected) Exposure To COVID-19 (Primary Dx) Discharge Disposition: Home or Self Care 07/05/2021 2:40 PM AIR CONDITIONING SERVICE TECHNICIAN Admin Visit Urgent Care, [facility], in [place], [place] [address] [place] [address] 07/04/2021 Clinical Communication Division of [facility], [facility], in [place], [place] [address] [place] [phone] Marciano Kelly R.N. 03/29/2021 Orders Only RST [facility]CP [facility]NT Yohana Chavez M.D. 03/22/2021 9:00 AM CDT Ancillary Procedure Department of Radiology in [place], [place] [address] [place] [phone] Lauren Portillo M.D. Stroke Cerebrovascular Accident Personal History 03/22/2021 9:00 AM CDT Ancillary Procedure Department of Radiology in [place], [place] [address] [place] [phone] Lauren Portillo M.D. Stroke Cerebrovascular Accident Personal History 03/22/2021 11:30 AM CDT Comprehensive Visit Department of Neurology in [place], [place] [address] [place] [phone] Lauren Portillo M.D. Cerebrovascular Disease (Primary Dx); Spells Neurological (HCC) 03/21/2021 9:40 AM CDT Clinical Communication Virtual Review in [place], [place] [address] [place] [address] Neha Gardner M.D. Pre-visit Intake 01/19/[address] [facility] [address] [place] [address] Yohana Watkins P.A. Stroke (HCC) (Primary Dx) 01/07/2021 Documentation Department of Cardiovascular Medicine in [place], [place] [address] [place] [phone] Neha Gardner M.D. 01/07/2021 Orders Only Department of Cardiovascular Medicine in [place], [place] [address] [place] [phone] Neha Gardner M.D. Stroke (HCC) (Primary Dx) 07/12/2020 Refill Department of Cardiovascular Medicine in [place], [place] [address] [place] [phone] Neha Gardner M.D. Med Refill 06/16/2020 4:00 PM AIR CONDITIONING SERVICE TECHNICIAN Office Visit Department of Cardiovascular Medicine in [place], [place] [address] [place] [address] Neha Gardner M.D. 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 Beat Premature Ventricular; Cardiomyopathy Ischemic; Coronary Artery Disease With Stable Angina (HCC); Hyperlipidemia Discharge Disposition: Home or Self Care 06/16/2020 11:43 AM AIR CONDITIONING SERVICE TECHNICIAN - 06/16/2020 11:59 PM AIR CONDITIONING SERVICE TECHNICIAN Hospital Encounter Department of Cardiovascular Diseases in [place], [place] [address] [place] [phone] Neha Gardner M.D. Beat Premature Ventricular; Cardiomyopathy Ischemic; Coronary Artery Disease With Stable Angina (HCC); Hyperlipidemia Discharge Disposition: Home or Self Care 06/14/2020 Orders Only Department of Cardiovascular Medicine in [place], [place] [address] [place] [phone] Neha Gardner M.D. Cardiomyopathy Ischemic (Primary Dx); Beat Premature Ventricular; Coronary Artery Disease With Stable Angina (HCC); Hyperlipidemia 06/11/2020 Orders Only Department of Cardiovascular Medicine in [place], [place] [address] [place] [phone] Neha Gardner M.D. 02/09/2020 Refill Department of Cardiovascular Medicine in [place], [place] [address] [place] [phone] Neha Gardner M.D. Med Refill 12/09/2019 Clinical Communication Department of Cardiovascular Medicine in [place], [place] [address] [place] [phone] Neha Gardner M.D. Med Question (Communication) 08/26/2019 Refill Department of Cardiovascular Medicine in [place], [place] [address] [place] [phone] Neha Gardner M.D. Med Refill; Med Refill 08/14/2019 Refill Department of Cardiovascular Medicine in [place], [place] [address] [place] [phone] Neha Gardner M.D. Med Refill 08/12/2019 Clinical Communication Department of Cardiovascular Medicine in [place], [place] [address] [place] [phone] Neha Gardner M.D. Results 08/07/2019 Clinical Communication Department of Cardiovascular Medicine in [place], [place] [address] [place] [phone] Neha Gardner M.D. New Medication Clarification 07/30/2019 Clinical Communication Department of Cardiovascular Diseases in [place], [place] [address] [place] [phone] Gisela Galdamez CRAT 07/21/2019 9:19 AM AIR CONDITIONING SERVICE TECHNICIAN - 07/21/2019 11:59 PM AIR CONDITIONING SERVICE TECHNICIAN Hospital Encounter Department of Cardiovascular Diseases in [address] [phone] Neha Gardner M.D. Failure Heart (HCC); Beat Premature Ventricular; Cardiomyopathy Ischemic Discharge Disposition: Home or Self Care 07/09/2019 Orders Only Department of Cardiovascular Medicine in [place], [place] [address] [place] [phone] Neha Gardner M.D. Cardiomyopathy Ischemic (Primary Dx) 07/08/2019 2:00 PM AIR CONDITIONING SERVICE TECHNICIAN Comprehensive Visit Department of Cardiovascular Medicine in [place], [place] [address] [place] [phone] Neha Gardner M.D. 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 Cardiomyopathy Ischemic; Failure Heart (HCC); Chronic Kidney Disease Stage 3 Glomerular Filtration Rate 30 To 59; Hyperlipidemia; Aneurysm Coronary Artery; Coronary Artery Disease With Stable Angina (HCC) Discharge Disposition: Home or Self Care 07/08/2019 10:20 AM AIR CONDITIONING SERVICE TECHNICIAN - 07/08/2019 11:59 PM AIR CONDITIONING SERVICE TECHNICIAN Hospital Encounter Department of Laboratory Medicine and Pathology, [place], [place] [address] [place] [phone] Neha Gardner M.D. Cardiomyopathy Ischemic; Failure Heart (HCC); Chronic Kidney Disease Stage 3 Glomerular Filtration Rate 30 To 59; Hyperlipidemia; Aneurysm Coronary Artery; Coronary Artery Disease With Stable Angina (HCC) Discharge Disposition: Home or Self Care 07/04/2019 Clinical Communication Department of Cardiovascular Medicine in [place], [place] [address] [place] [phone] Neha Gardner M.D. 06/26/2019 Clinical Communication Department of Cardiovascular Medicine in [place], [place] [address] [place] [phone] Neha Gardner M.D. 06/03/2019 Clinical Communication Department of Cardiovascular Medicine in [place], [place] [address] [place] [phone] Neha Gardner M.D. Appointment 01/21/2019 4:00 PM CDT Office Visit Department of Cardiovascular Medicine in [place], [place] [address] [place] [phone] Neha Gardner M.D. Cardiomyopathy Ischemic (Primary Dx); Failure Heart (HCC); Chronic Kidney Disease Stage 3 Glomerular Filtration Rate 30 To 59; Hyperlipidemia; Aneurysm Coronary Artery; Coronary Artery Disease With Stable Angina (HCC) 01/21/2019 1:14 PM CDT - 01/21/2019 11:59 PM CDT Hospital Encounter Department of Cardiovascular Diseases in [place], [place] [address] [place] [phone] Neha Gardner M.D. Coronary Artery Disease (Unspecified); Cardiomyopathy Ischemic; Pain Chest; Dyspnea On Exertion; Snoring; Apnea Sleep Obstructive Discharge Disposition: Home or Self Care 01/07/2019 8:44 AM CDT - 01/07/2019 12:18 PM CDT Hospital Encounter Department of Radiology, [place], [place] [address] [place] [phone] Neha Gardner M.D. Coronary Artery Disease (Unspecified); Cardiomyopathy Ischemic; Pain Chest; Dyspnea On Exertion; Snoring; Apnea Sleep Obstructive Discharge Disposition: Home or Self Care 01/07/2019 12:19 PM CDT - 01/07/2019 11:59 PM CDT Hospital Encounter Department of Radiology, [place], [place] [address] [place] [phone] Neha Gardner M.D. Coronary Artery Disease (Unspecified); Cardiomyopathy Ischemic; Pain Chest; Dyspnea On Exertion; Snoring; Apnea Sleep Obstructive Discharge Disposition: Home or Self Care 12/31/2018 7:20 AM CDT - 12/31/2018 11:59 PM CDT Hospital Encounter Department of Radiology, [facility] in [place], [place] [address] [place] [phone] Neha Gardner M.D. Coronary Artery Disease (Unspecified); Hyperlipidemia; Fatigue; Impaired Fasting Glucose; Cardiomyopathy Ischemic Discharge Disposition: Home or Self Care 12/31/2018 6:50 AM CDT - 12/31/2018 7:19 AM CDT Hospital Encounter Department of Laboratory Medicine and Pathology, [facility] in [place], [place] [address] [place] [address] Neha Gardner M.D. Coronary Artery Disease (Unspecified); Hyperlipidemia; Fatigue; Impaired Fasting Glucose; Cardiomyopathy Ischemic Discharge Disposition: Home or Self Care 12/31/2018 9:30 AM CDT Office Visit Department of Cardiovascular Medicine in [place], [place] [address] [place] [phone] Neha Gardner M.D. Coronary Artery Disease (Unspecified) [...] Hospital Encounter Department of Cardiovascular Diseases in [place], [place] [address] [place] [phone] Neha Gardner M.D. Coronary Artery Disease (Unspecified); Hyperlipidemia; Fatigue; Impaired Fasting Glucose; Cardiomyopathy Ischemic Discharge Disposition: Home or Self Care 12/16/2018 Orders Only Department of Cardiovascular Medicine in [place], [place] [address] [place] [phone] Neha Gardner M.D. Coronary Artery Disease (Unspecified) (Primary Dx); Hyperlipidemia; Fatigue; Impaired Fasting Glucose; Cardiomyopathy Ischemic 12/13/2018 Clinical Communication Department of Cardiovascular Medicine in [place], [place] [address] [place] [phone] Neha Gardner M.D. Appointment 06/14/2018 Refill Department of Cardiovascular Medicine in [place], [place] [address] [place] [phone] Neha Gardner M.D. Med Refill 06/04/2017 6:13 AM [facility] - 06/12/2017 1:56 PM AIR CONDITIONING SERVICE TECHNICIAN Hospital Encounter HX RST LEONOR Sanders 06/04/2017 5:10 AM AIR CONDITIONING SERVICE TECHNICIAN - 06/04/2017 11:59 PM AIR CONDITIONING SERVICE TECHNICIAN Hospital Encounter HX NO MAPPING Natasha Duarte 06/04/2017 7:50 AM AIR CONDITIONING SERVICE TECHNICIAN Telemedicine Department of Anesthesiology 06/01/2017 - 06/01/2017 11:59 PM AIR CONDITIONING SERVICE TECHNICIAN Hospital Encounter HX NO MAPPING Provider, Historical 05/08/2017 - 05/08/2017 11:59 PM AIR CONDITIONING SERVICE TECHNICIAN Hospital Encounter HX NO MAPPING Provider, Historical 05/08/2017 3:16 PM AIR CONDITIONING SERVICE TECHNICIAN - 05/08/2017 11:59 PM AIR CONDITIONING SERVICE TECHNICIAN Hospital Encounter HX RST [facility] Elvin Moreno M.D. 12/13/2016 - 12/13/2016 [...] PM CDT - 01/13/2016 11:26 PM CDT Emergency HX RST EMERGENCY TRAUMA UNI Provider, Historical Allergies Active Allergy Reactions Criticality Noted Date Comments Iodinated Contrast Media Anaphylaxis High 05/10/2016 Cardiac arrest during stent placement Amlodipine Hives (Reselect Reaction) High 01/13/2021 Vsfhhux-Ixx-Pao Reductase Inhibitors Other (see comments) Medium 01/03/2022 [...] mcg total) by mouth daily. 4 Active Additional Information Patient taking differently: 1,000 Unitsoral Daily, Reported on 01/16/2025 torsemide (Demadex) 5 mg tablet Take 1 tablet (5 mg total) by mouth daily. Continue rotation list below: Day 1 - 1 Tablet Day 2 - 2 Tablets 90 tablet 4 Active Additional Information Patient taking differently:5 mg oralEvery other day, Continue rotation list below: Day 1 - 1 Tablet Day 2 - 2 Tablets, Reported on 01/16/2025 carvediloL (Coreg) 6.25 mg tablet TAKE 1 TABLET BY MOUTH TWICE DAILY WITH A MEAL /FOOD 4 Active valsartan (Diovan) 160 mg tablet Take 160 mg by mouth 2 (two) times a day. 4 Active Pacerone 100 mg tablet Take 1 tablet by mouth once daily 90 tablet 3 5 Active ascorbic acid, vitamin C, (Vitamin C) 500 mg tablet Take 500 mg by mouth daily. 3 Active cyanocobalamin (Vitamin B-12) 1,000 mcg tablet Take 1,000 mcg by mouth daily. 5 Active tiotropium (Spiriva Respimat) 2.5 mcg/actuation inhaler Inhale 2 puffs daily. 4 g 5 5 Active Active Problems Problem Noted Date Diagnosed Date Atrial Fibrillation Longstanding Persistent 10/31 Atrial Fibrillation Paroxysmal 11/19/2024 Presence Cardioverter- Defibrillator (ICD And AI CD) [...] Interval 06/11/20172018 Failure Heart 11/02/2016 06/18/2020 Immunizations Immunization Administration Dates Next Due Influenza Split 04/20/2017 Tdap 01/13/2016 Family History Medical History Relation Name Comments Hypertension Father Casey Lehman Asthma Mother Afshan Salas (Gerald) Louiker Rheum arthritis Mother Afshan Salas (Gerald) Dominik Diabetes Paternal Grandfather Isra Duarte Relation Name Status Comments Father Casey [place] Alive Mother Afshan Salas (Gerald) Louiker Alive Paternal Grandfather Isra Duarte Alive Social History Smoking Status as of 02/20/2025 Tobacco Use Types Packs/Day Years Used Date Smoking Tobacco: Never Assessed [facility] Utilities Answer Date Recorded In the past 12 months has e electric, gas, oil, or water company threatened [...] your living situation today? I have a [facility] place to live 11/13/2024 Education Answer Date Recorded What is the highest level of school you have completed or the highest degree you have received? 12th grade 03/18/2021 Sex and Gender Information Value Date Recorded Sex Assigned at Male 03/18/2021 9:25 AM CDT Legal Sex Male 6:03 AM AIR CONDITIONING SERVICE TECHNICIAN Gender Identity Male 12/20/2017 11:12 AM CDT Sexual Orientation Straight 12/20/2017 11 :12 AM CDT Last Filed Vital Signs Vital Sign Reading Time Taken Comments Blood Pressure 130/74 01/16/2025 4:26 PM CDT Pulse 70 01/16/2025 4:26 PM CDT Temperature 36.3 C (97.3 F) 01/16/2025 4:26 PM CDT Respiratory Rate 21 06/12/2017 1:15 PM AIR CONDITIONING SERVICE TECHNICIAN Value from [employer]. Oxygen Saturation 98% 01/16/2025 4:2 6 PM CDT Inhaled Oxygen Concentration - - Weight 90.8 kg (200 lb 1.1 oz) 01/16/2025 4:26 PM CDT Height 162.6 cm (5' 4.02) 01/16/2025 4 :26 PM CDT Body Mass Index 34.32 01/16/2025 4:26 PM CDT Plan of Treatment Upcoming Encounters Date Type Department Care Team (Latest Contact Info) Description 03/23/2025 7:30 AM CDT Clinical Communication Virtual Review in [place], [place] [address] [place] [address] 03/26/2025 12:00 PM CDT Appointment Department of Laboratory Medicine and Pathology, [facility], in [place], [place] [address] [place] [phone] Emiliana Carrasco M.D. [address] [place] [phone] 03/26/2025 2:30 PM CDT Procedure visit Department of Urology in [place], [place] [address] [place] [phone] Emiliana Carrasco M.D. [address] [place] [phone] 03/27/2025 8:00 AM CDT Office Visit Department of Urology in [place], [place] [address] [place] [address] Kalin Dumont M.D. [address] [place] [address] Medical Devices Implanted Type Area Shipping Agent Device Identifier Shelf Expiration Date Model / Serial / Lot Conversions - Default Historical Implant Device Implanted:Qty: 2 on 01/14/2016 Ankle Implant Right: Ankle Description:Body Location - Ankle R. Device Status Text - Ankle Imp. Lead Rl4f Defib Biplr 59 - [id number] - [id number] Implanted:Qty: 1 on 03/19/2024 by Keaml Miller M.D. at [facility] Cardiac Lead N/A: Heart [employer] 01/29/2026 [id number] / [id number] / Lead Ppm Ingevity+ Biplr 52 - [id number] - [id number] Implanted:Qty: 1 on 03/19/2024 by Kemal Miller M.D. at [facility] Cardiac Lead N/A: Heart [employer] 01/29/2026 [id number] / [id number] / Variax-Screw Lock Cross Pin 2.3x 8 - Renee [id number] Implanted:Qty: 2 on 01/14/2016 Hardware e.g. pins/screws/rods Wittmann Description:Device Manufactu rer - Wittmann Quynh.. Device Status Text - [id number]. Trimed-Screw Andrés. 3.5mm X 35mm - Renee [id number] Implanted:Qty: 1 on 01/14/2016 Hardware e.g. pins/screws/rods [employer] Description:Device Manufactu rer - [employer].. Device Status Text - [id number]. Variax-Screw Lock Cross Pin 2.3x13 - Renee [id number] Implanted:Qty: 1 on 01/14/2016 Hardware e.g. pins/screws/rods Wittmann Description:Device Manufactu rer - Polina Quynh.. Device Status Text - [id number]. Variax-Screw Lock Cross Pin 2.3x11 - Renee [id number] Implanted:Qty: 1 on 01/14/2016 Hardware e.g. pins/screws/rods Wittmann Description:Device Manufactu rer - Wittmann Quynh.. Device Status Text - HARDWARE-[id number]. Variax-Plate 2.3mm Profyle T Ji 6ho - Renee [id number] Implanted:Qty: 1 on 01/14/2016 Hardware e.g. pins/screws/rods Wittmann Description:Device Manufactu rer - Wittmann Quynh.. Device Status Text - [id number]. Icd Rsn Dr 0.99x5.37x7.38 - [id number] - [id number] Implanted:Qty: 1 on 03/19/2024 by Kemal Miller M.D. at [facility] Implant Cardiac Defibrillator Left: Chest [employer] 02/13/2026 [id number] / [id number] / Conversions - Default Historical Implant Device [...] DEVICE CHECK Routine 02/04/2025 7:[address] CHEST WITHOUT IV CONTRAST RAD - Routine (most inpatients and all outpatients) 01/16/2025 1:02 PM CDT Shortness Of Breath DIPSTICK, U Routine 12/29/2024 9:00 AM CDT PH, U Routine 12/29/2024 9:00 AM CDT OSMOLALITY, U Routine 12/29/2024 9:00 AM CDT MICROSCOPIC AUTOMATED Routine 12/29/2024 9:00 AM CDT URINALYSIS WITH MICROSCOPIC Routine 12/29/2024 9:00 AM CDT Incontinence Urinary (TTE) 2D ECHO DOPPLER COLOR Routine 12/08/2024 4:28 PM CDT Shortness Of Breath Tachycardia Ventricular Nonsustained (HCC) Atrial Fibrillation Longstanding Persistent (HCC) DX CHEST AP OR PA AND LATERAL 2 VIEWS RAD - Routine (most inpatients and all outpatients) 12/08/2024 11:59 AM CDT Shortness Of Breath THYROID FUNCTION CASCADE, S Routine 11/19/2024 11:08 AM CDT Presence Cardioverter- Defibrillator (ICD And AICD) Beat Premature Ventricular COMPREHENSIVE METABOLIC PANEL, S/P Routine 11/19/2024 11:08 AM CDT Presence Cardioverter- Defibrillator (ICD And AICD) Beat Premature Ventricular ECG Routine 11/19/2024 10:41 AM CDT Presence Cardioverter- Defibrillator (ICD And AICD) Beat Premature Ventricular PULMONARY FUNCTION TESTS Routine 11/19/2024 9:10 AM CDT Presence Cardioverter- Defibrillator (ICD And AICD) Beat Premature Ventricular ICD DUAL CHAMBER INTERROGATION WITH PROGRAMMING Routine 11/19/2024 8:42 AM CDT Presence Cardioverter- Defibrillator (ICD And AICD) Beat Premature Ventricular INTERFACED REMOTE DEVICE CHECK Routine 11/05/2024 9:24 AM CDT INTERFACED REMOTE DEVICE CHECK Routine 08/06/2024 12:49 PM AIR CONDITIONING SERVICE TECHNICIAN ICD DUAL CHAMBER INTERROGATION WITH PROGRAMMING Routine 06/16/2024 8:47 AM AIR CONDITIONING SERVICE TECHNICIAN Aftercare Cardiac Defibrillator INTERFACED REMOTE DEVICE CHECK [...] Angina (HCC) HOLTER MONITOR - IN CLINIC BANDER AND CELLOPHANER MACHINE Routine 12/18/2023 12:08 PM CDT Tachycardia Ventricular Nonsustained (HCC) OUTSIDE MR NEURO Routine 09/19/2023 2:[address] NEURO Routine 09/19/2023 9:[address] NEURO Routine 09/19/2023 9:50 AM CDT OUTSIDE OTHER Routine 09/19/2023 9:45 AM CDT OUTSIDE US CARD Routine 09/19/2023 12:00 AM CDT HOLTER MONITOR - IN CLINIC BANDER AND CELLOPHANER MACHINE Routine 07/07/2023 3:08 PM AIR CONDITIONING SERVICE TECHNICIAN Ectopy Ventricular Cardiomyopathy Ischemic Coronary Artery Disease With Stable Angina (HCC) MR CARDIAC WITHOUT AND WITH IV CONTRAST RAD - Routine (most inpatients and all outpatients) 07/06/2023 12:32 PM AIR CONDITIONING SERVICE TECHNICIAN Ectopy Ventricular Cardiomyopathy Ischemic Coronary Artery Disease With Stable Angina (HCC) ALANINE AMINOTRANSFERASE (ALT), S/P Routine 07/06/2023 10:59 AM AIR CONDITIONING SERVICE TECHNICIAN Ectopy Ventricular Cardiomyopathy Ischemic Coronary Artery Disease With Stable Angina (HCC) LIPID PANEL, S Routine 07/06/2023 10:59 AM AIR CONDITIONING SERVICE TECHNICIAN Ectopy Ventricular Cardiomyopathy Ischemic Coronary Artery Disease With Stable Angina (HCC) PULMONARY FUNCTION TESTS Routine 06/15/2023 10:28 AM AIR CONDITIONING SERVICE TECHNICIAN Coronary Artery Disease With Stable Angina (HCC) Ectopy Ventricular 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 Failure (HCC) Hyperlipidemia DX CHEST AP OR PA AND LATERAL 2 VIEWS RAD - Routine (most inpatients and all outpatients) 06/15/2023 9:58 AM AIR CONDITIONING SERVICE TECHNICIAN Coronary Artery Disease With Stable Angina (HCC) Ectopy Ventricular 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 Failure (HCC) Hyperlipidemia ECG Routine 06/15/2023 8:48 AM AIR CONDITIONING SERVICE TECHNICIAN Coronary Artery Disease With Stable Angina (HCC) Ectopy Ventricular 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 Failure (HCC) Hyperlipidemia THYROID FUNCTION CASCADE, S Routine 06/15/2023 8:28 AM AIR CONDITIONING SERVICE TECHNICIAN Coronary Artery Disease With Stable Angina (HCC) Ectopy Ventricular 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 Failure (HCC) Hyperlipidemia MAGNESIUM, S Routine 06/15/2023 8:28 AM AIR CONDITIONING SERVICE TECHNICIAN Coronary Artery Disease With Stable Angina (HCC) Ectopy Ventricular 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 Failure (HCC) Hyperlipidemia PROTHROMBIN TIME (PT), P Routine 06/15/2023 8:27 AM AIR CONDITIONING SERVICE TECHNICIAN Coronary Artery Disease With Stable Angina (HCC) Ectopy Ventricular 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 Failure (HCC) Hyperlipidemia HOLTER MONITOR - IN CLINIC BANDER AND CELLOPHANER MACHINE Routine 05/24/2023 10:55 AM AIR CONDITIONING SERVICE TECHNICIAN Coronary Artery Disease With Stable Angina (HCC) Ectopy Ventricular 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 Failure (HCC) Hyperlipidemia (TTE) 2D ECHO DOPPLER COLOR Routine 05/23/2023 1:44 PM AIR CONDITIONING SERVICE TECHNICIAN Coronary Artery Disease With Stable Angina (HCC) Ectopy Ventricular 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 Failure (HCC) Hyperlipidemia CBC WITHOUT DIFFERENTIAL, B Routine 05/23/2023 12:26 PM AIR CONDITIONING SERVICE TECHNICIAN Coronary Artery Disease With Stable Angina (HCC) Ectopy Ventricular 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 Failure (HCC) Hyperlipidemia LIPID PANEL, S Routine 05/23/2023 12:26 PM AIR CONDITIONING SERVICE TECHNICIAN Coronary Artery Disease With Stable Angina (HCC) Ectopy Ventricular 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 Failure (HCC) Hyperlipidemia COMPREHENSIVE METABOLIC PANEL, S/P Routine 05/23/2023 12:26 PM AIR CONDITIONING SERVICE TECHNICIAN Coronary Artery Disease With Stable Angina (HCC) Ectopy Ventricular 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 Failure (HCC) Hyperlipidemia HEMOGLOBIN A1C, B Routine 05/23/2023 12:26 PM AIR CONDITIONING SERVICE TECHNICIAN Coronary Artery Disease With Stable Angina (HCC) Ectopy Ventricular 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 Failure (HCC) Hyperlipidemia NT-PRO B-TYPE NATRIURETIC PEPTIDE (BNP), S Routine 05/23/2023 12:26 PM AIR CONDITIONING SERVICE TECHNICIAN Coronary Artery Disease With Stable Angina (HCC) Ectopy Ventricular 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 Failure (HCC) Hyperlipidemia BASIC METABOLIC PANEL, S/P Routine 08/07/2022 9:47 AM AIR CONDITIONING SERVICE TECHNICIAN Coronary Artery Disease With Stable Angina (HCC) HOLTER MONITOR - IN CLINIC BANDER AND CELLOPHANER MACHINE Routine 06/10/2022 12:51 PM AIR CONDITIONING SERVICE TECHNICIAN Cardiomyopathy Ischemic Coronary Artery Disease With Stable Angina (HCC) Aneurysm Coronary Artery Ectopy Ventricular Hyperlipidemia (TTE) 2D ECHO DOPPLER COLOR AND CONTRAST Routine 06/09/2022 4:08 PM AIR CONDITIONING SERVICE TECHNICIAN Cardiomyopathy Ischemic Coronary Artery Disease With Stable Angina (HCC) Aneurysm Coronary Artery Ectopy Ventricular Hyperlipidemia ECG Routine 06/09/2022 11:50 AM AIR CONDITIONING SERVICE TECHNICIAN Cardiomyopathy Ischemic Coronary Artery Disease With Stable Angina (HCC) Aneurysm Coronary Artery Ectopy Ventricular Hyperlipidemia CBC WITH DIFFERENTIAL, B Routine 06/09/2022 11:37 AM AIR CONDITIONING SERVICE TECHNICIAN Cardiomyopathy Ischemic Coronary Artery Disease With Stable Angina (HCC) Aneurysm Coronary Artery Ectopy Ventricular Hyperlipidemia COMPREHENSIVE METABOLIC PANEL, S/P Routine 06/09/2022 11:37 AM AIR CONDITIONING SERVICE TECHNICIAN Cardiomyopathy Ischemic Coronary Artery Disease With Stable Angina (HCC) Aneurysm Coronary Artery Ectopy Ventricular Hyperlipidemia HEMOGLOBIN A1C, B Routine 06/09/2022 11:37 AM AIR CONDITIONING SERVICE TECHNICIAN Cardiomyopathy Ischemic Coronary Artery Disease With Stable Angina (HCC) Aneurysm Coronary Artery Ectopy Ventricular Hyperlipidemia MAGNESIUM, S Routine 06/09/2022 11:37 AM AIR CONDITIONING SERVICE TECHNICIAN Cardiomyopathy Ischemic Coronary Artery Disease With Stable Angina (HCC) Aneurysm Coronary Artery Ectopy Ventricular Hyperlipidemia THYROID FUNCTION CASCADE, S Routine 06/09/2022 11:37 AM AIR CONDITIONING SERVICE TECHNICIAN Cardiomyopathy Ischemic Coronary Artery Disease With Stable Angina (HCC) Aneurysm Coronary Artery Ectopy Ventricular Hyperlipidemia LIPID PANEL, S Routine 06/09/2022 11:37 AM AIR CONDITIONING SERVICE TECHNICIAN Cardiomyopathy Ischemic Coronary Artery Disease With Stable Angina (HCC) Aneurysm Coronary Artery Ectopy Ventricular Hyperlipidemia OUTSIDE US BODY Routine 03/17/2022 8:10 AM CDT OUTSIDE DX SKELETAL Routine 11/24/2021 9:15 AM CDT OUTSIDE DX SKELETAL Routine 11/24/2021 9:10 AM CDT SARS CORONAVIRUS-2 RNA, V Routine 07/05/2021 2:52 PM AIR CONDITIONING SERVICE TECHNICIAN Contact With And (Suspected) Exposure To COVID-19 [...] COLOR AND CONTRAST Routine 06/16/2020 1:43 PM AIR CONDITIONING SERVICE TECHNICIAN Beat Premature Ventricular Cardiomyopathy Ischemic Coronary Artery Disease With Stable Angina (HCC) Hyperlipidemia ECG Routine 06/16/2020 8:56 AM AIR CONDITIONING SERVICE TECHNICIAN Beat Premature Ventricular Cardiomyopathy Ischemic Coronary Artery Disease With Stable Angina (HCC) Hyperlipidemia CBC WITHOUT DIFFERENTIAL, B Routine 06/16/2020 8:44 AM AIR CONDITIONING SERVICE TECHNICIAN Beat Premature Ventricular Cardiomyopathy Ischemic Coronary Artery Disease With Stable Angina (HCC) Hyperlipidemia NT-PRO B-TYPE NATRIURETIC PEPTIDE (BNP), S Routine 06/16/2020 8:44 AM AIR CONDITIONING SERVICE TECHNICIAN Beat Premature Ventricular Cardiomyopathy Ischemic Coronary Artery Disease With Stable Angina (HCC) Hyperlipidemia THYROID-STIMULATING HORMONE-SENSITIVE (S-TSH) Routine 06/16/2020 8:44 AM AIR CONDITIONING SERVICE TECHNICIAN Beat Premature Ventricular Cardiomyopathy Ischemic Coronary Artery Disease With Stable Angina (HCC) Hyperlipidemia LIPID PANEL, S Routine 06/16/2020 8:44 AM AIR CONDITIONING SERVICE TECHNICIAN Beat Premature Ventricular Cardiomyopathy Ischemic Coronary Artery Disease With Stable Angina (HCC) Hyperlipidemia COMPREHENSIVE METABOLIC PANEL, S/P Routine 06/16/2020 8:44 AM AIR CONDITIONING SERVICE TECHNICIAN Beat Premature Ventricular Cardiomyopathy Ischemic Coronary Artery Disease With Stable Angina (HCC) Hyperlipidemia HOLTER MONITOR - IN CLINIC BANDER AND CELLOPHANER MACHINE Routine 07/21/2019 9:34 AM AIR CONDITIONING SERVICE TECHNICIAN Failure Heart (HCC) Beat Premature Ventricular Cardiomyopathy Ischemic ECG Routine 07/08/2019 11:23 AM AIR CONDITIONING SERVICE TECHNICIAN Cardiomyopathy Ischemic Failure Heart (HCC) Chronic Kidney Disease Stage 3 Glomerular Filtration Rate 30 To 59 Hyperlipidemia Aneurysm Coronary Artery Coronary Artery Disease With Stable Angina (HCC) NM CARDIAC BLOOD POOL MUGA AT REST RAD - Routine (most inpatients and all outpatients) 07/08/2019 11:12 AM AIR CONDITIONING SERVICE TECHNICIAN Cardiomyopathy Ischemic Failure Heart (HCC) Chronic Kidney Disease Stage 3 Glomerular Filtration Rate 30 To 59 Hyperlipidemia Aneurysm Coronary Artery Coronary Artery Disease With Stable Angina (HCC) CBC WITHOUT DIFFERENTIAL, B Routine 07/08/2019 10:58 AM AIR CONDITIONING SERVICE TECHNICIAN Cardiomyopathy Ischemic Failure Heart (HCC) Chronic Kidney Disease Stage 3 Glomerular Filtration Rate 30 To 59 Hyperlipidemia Aneurysm Coronary Artery Coronary Artery Disease With Stable Angina (HCC) NT-PRO B-TYPE NATRIURETIC PEPTIDE (BNP), S Routine 07/08/2019 10:58 AM AIR CONDITIONING SERVICE TECHNICIAN Cardiomyopathy Ischemic Failure Heart (HCC) Chronic Kidney Disease Stage 3 Glomerular Filtration Rate 30 To 59 Hyperlipidemia Aneurysm Coronary Artery Coronary Artery Disease With Stable Angina (HCC) LIPID PANEL, S Routine 07/08/2019 10:58 AM AIR CONDITIONING SERVICE TECHNICIAN Cardiomyopathy Ischemic Failure Heart (HCC) Chronic Kidney Disease Stage 3 Glomerular Filtration Rate 30 To 59 Hyperlipidemia Aneurysm Coronary Artery Coronary Artery Disease With Stable Angina (HCC) BASIC METABOLIC PANEL, S/P Routine 07/08/2019 10:54 AM AIR CONDITIONING SERVICE TECHNICIAN Failure Heart (HCC) CARDIOPULMONARY (VO2) EXERCISE TEST [...] TIME (PT), P Routine 05/28/2018 9:18 AM AIR CONDITIONING SERVICE TECHNICIAN Coronary Artery Disease CBC WITHOUT DIFFERENTIAL, B Routine 06/12/2017 6:50 AM AIR CONDITIONING SERVICE TECHNICIAN PROTHROMBIN TIME (PT), P Routine 06/12/2017 6:50 AM AIR CONDITIONING SERVICE TECHNICIAN ELPN WITH CREATININE SHEREEN, P Routine 06/12/2017 6:50 AM AIR CONDITIONING SERVICE TECHNICIAN PROTHROMBIN TIME (PT), P Routine 06/11/2017 7:46 AM AIR CONDITIONING SERVICE TECHNICIAN CBC WITHOUT DIFFERENTIAL, B Routine 06/11/2017 7:46 AM AIR CONDITIONING SERVICE TECHNICIAN ELPN WITH CREATININE SHEREEN, P Routine 06/11/2017 7:46 AM AIR CONDITIONING SERVICE TECHNICIAN ECG Routine 06/11/2017 7:15 AM AIR CONDITIONING SERVICE TECHNICIAN DX CHEST AP OR PA AND LATERAL 2 VIEWS Routine 06/11/2017 6:08 AM AIR CONDITIONING SERVICE TECHNICIAN GLUCOSE POCT, B Routine 06/10/2017 5:36 PM AIR CONDITIONING SERVICE TECHNICIAN GLUCOSE POCT, B Routine 06/10/2017 12:05 PM AIR CONDITIONING SERVICE TECHNICIAN DX CHEST PORTABLE 1 VIEW Routine 06/10/2017 9:22 AM AIR CONDITIONING SERVICE TECHNICIAN ELPN WITH CREATININE SHEREEN, P Routine 06/10/2017 6:09 AM AIR CONDITIONING SERVICE TECHNICIAN CBC WITHOUT DIFFERENTIAL, B Routine 06/10/2017 6:09 AM AIR CONDITIONING SERVICE TECHNICIAN PROTHROMBIN TIME (PT), P Routine 06/10/2017 6:09 AM AIR CONDITIONING SERVICE TECHNICIAN GLUCOSE POCT, B Routine 06/09/2017 10:40 PM AIR CONDITIONING SERVICE TECHNICIAN DX ABDOMEN PORTABLE ANTERIOR POSTERIOR 1 VIEW Routine 06/09/2017 6:25 PM AIR CONDITIONING SERVICE TECHNICIAN GLUCOSE POCT, B Routine 06/09/2017 5:54 PM AIR CONDITIONING SERVICE TECHNICIAN DX CHEST AP OR PA AND LATERAL 2 VIEWS Routine 06/09/2017 5:35 PM AIR CONDITIONING SERVICE TECHNICIAN GLUCOSE POCT, B Routine 06/09/2017 12:33 PM AIR CONDITIONING SERVICE TECHNICIAN MAGNESIUM, S Routine 06/09/2017 6:18 AM AIR CONDITIONING SERVICE TECHNICIAN PROTHROMBIN TIME (PT), P Routine 06/09/2017 6:18 AM AIR CONDITIONING SERVICE TECHNICIAN CBC WITHOUT DIFFERENTIAL, B Routine 06/09/2017 6:18 AM AIR CONDITIONING SERVICE TECHNICIAN ELPN WITH CREATININE SHEREEN, P Routine 06/09/2017 6:18 AM AIR CONDITIONING SERVICE TECHNICIAN PHOSPHORUS (INORGANIC), S Routine 06/09/2017 6:18 AM AIR CONDITIONING SERVICE TECHNICIAN CALCIUM, TOT, S/P Routine 06/09/2017 6:18 AM AIR CONDITIONING SERVICE TECHNICIAN MICROSCOPIC MANUAL Routine 06/08/2017 11:13 PM AIR CONDITIONING SERVICE TECHNICIAN CREATININE, RANDOM, U Routine 06/08/2017 11:13 PM AIR CONDITIONING SERVICE TECHNICIAN URINALYSIS WITH MICROSCOPIC Routine 06/08/2017 11:13 PM AIR CONDITIONING SERVICE TECHNICIAN CHLORIDE, RANDOM, U Routine 06/08/2017 11:13 PM AIR CONDITIONING SERVICE TECHNICIAN SODIUM, RANDOM, U Routine 06/08/2017 11:13 PM AIR CONDITIONING SERVICE TECHNICIAN DX CHEST PORTABLE POST-PICC PLACEMENT 1 VIEW Routine 06/08/2017 6:35 PM AIR CONDITIONING SERVICE TECHNICIAN GLUCOSE POCT, B Routine 06/08/2017 6:01 PM AIR CONDITIONING SERVICE TECHNICIAN ELPN WITH CREATININE SHEREEN, P Routine 06/08/2017 3:44 PM AIR CONDITIONING SERVICE TECHNICIAN GLUCOSE POCT, B Routine 06/08/2017 11:39 AM AIR CONDITIONING SERVICE TECHNICIAN GLUCOSE POCT, B Routine 06/08/2017 7:39 AM AIR CONDITIONING SERVICE TECHNICIAN ELPN WITH CREATININE SHEREEN, P Routine 06/08/2017 6:38 AM AIR CONDITIONING SERVICE TECHNICIAN CBC WITHOUT DIFFERENTIAL, B Routine 06/08/2017 6:38 AM AIR CONDITIONING SERVICE TECHNICIAN PROTHROMBIN TIME (PT), P Routine 06/08/2017 6:38 AM AIR CONDITIONING SERVICE TECHNICIAN DX CHEST PORTABLE 1 VIEW Routine 06/08/2017 6:35 AM AIR CONDITIONING SERVICE TECHNICIAN GLUCOSE POCT, B Routine 06/07/2017 9:52 PM AIR CONDITIONING SERVICE TECHNICIAN GLUCOSE POCT, B Routine 06/07/2017 6:06 PM AIR CONDITIONING SERVICE TECHNICIAN GLUCOSE POCT, B Routine 06/07/2017 11:43 AM AIR CONDITIONING SERVICE TECHNICIAN ELPN WITH CREATININE SHEREEN, P Routine 06/07/2017 11:43 AM AIR CONDITIONING SERVICE TECHNICIAN PROTHROMBIN TIME (PT), P Routine 06/07/2017 11:43 AM AIR CONDITIONING SERVICE TECHNICIAN CORTROSYN STIM/ANTONI Routine 06/07/2017 9:02 AM AIR CONDITIONING SERVICE TECHNICIAN THYROID FUNCTION CASCADE, S Routine 06/07/2017 9:02 AM AIR CONDITIONING SERVICE TECHNICIAN GLUCOSE POCT, B Routine 06/07/2017 7:48 AM AIR CONDITIONING SERVICE TECHNICIAN DX CHEST PORTABLE 1 VIEW Routine 06/07/2017 6:38 AM AIR CONDITIONING SERVICE TECHNICIAN ELPN WITH CREATININE SHEREEN, P Routine 06/07/2017 5:47 AM AIR CONDITIONING SERVICE TECHNICIAN PROTHROMBIN TIME (PT), P Routine 06/07/2017 5:47 AM AIR CONDITIONING SERVICE TECHNICIAN ABG W/COOX Routine 06/07/2017 5:47 AM AIR CONDITIONING SERVICE TECHNICIAN CBC WITHOUT DIFFERENTIAL, B Routine 06/07/2017 5:47 AM AIR CONDITIONING SERVICE TECHNICIAN GLUCOSE POCT, B Routine 06/06/2017 9:44 PM AIR CONDITIONING SERVICE TECHNICIAN ELPN WITH CREATININE SHEREEN, P Routine 06/06/2017 8:51 PM AIR CONDITIONING SERVICE TECHNICIAN GLUCOSE POCT, B Routine 06/06/2017 5:16 PM AIR CONDITIONING SERVICE TECHNICIAN ELPN WITH CREATININE SHEREEN, P Routine 06/06/2017 12:50 PM AIR CONDITIONING SERVICE TECHNICIAN GLUCOSE POCT, B Routine 06/06/2017 12:42 PM AIR CONDITIONING SERVICE TECHNICIAN PREPARE RED BLOOD CELLS Routine 06/06/2017 8:22 AM AIR CONDITIONING SERVICE TECHNICIAN ANTIBODY SCREEN, B Routine 06/06/2017 8:22 AM AIR CONDITIONING SERVICE TECHNICIAN ABORH, RBC Routine 06/06/2017 8:22 AM AIR CONDITIONING SERVICE TECHNICIAN ABG W/COOX Routine 06/06/2017 8:08 AM AIR CONDITIONING SERVICE TECHNICIAN GLUCOSE POCT, B Routine 06/06/2017 8:06 AM AIR CONDITIONING SERVICE TECHNICIAN DX CHEST PORTABLE 1 VIEW Routine 06/06/2017 6:45 AM AIR CONDITIONING SERVICE TECHNICIAN CBC WITHOUT DIFFERENTIAL, B Routine 06/06/2017 4:53 AM AIR CONDITIONING SERVICE TECHNICIAN PROTHROMBIN TIME (PT), P Routine 06/06/2017 4:53 AM AIR CONDITIONING SERVICE TECHNICIAN ELPN WITH CREATININE SHEREEN, P Routine 06/06/2017 4:53 AM AIR CONDITIONING SERVICE TECHNICIAN ELPN WITH CREATININE SHEREEN, P Routine 06/06/2017 2:57 AM AIR CONDITIONING SERVICE TECHNICIAN GLUCOSE POCT, B Routine 06/05/2017 9:40 PM AIR CONDITIONING SERVICE TECHNICIAN GLUCOSE POCT, B Routine 06/05/2017 5:36 PM AIR CONDITIONING SERVICE TECHNICIAN LACTATE, B/P Routine 06/05/2017 4:51 PM AIR CONDITIONING SERVICE TECHNICIAN GLUCOSE POCT, B Routine 06/05/2017 4:49 PM AIR CONDITIONING SERVICE TECHNICIAN ABG W/COOX Routine 06/05/2017 3:56 PM AIR CONDITIONING SERVICE TECHNICIAN GLUCOSE POCT, B Routine 06/05/2017 3:54 PM AIR CONDITIONING SERVICE TECHNICIAN DX CHEST PORTABLE 1 VIEW Routine 06/05/2017 3:10 PM AIR CONDITIONING SERVICE TECHNICIAN ABG AND ELECTROLYTES, B (RAPIDPOINT - [place]) Routine 06/05/2017 2:51 PM AIR CONDITIONING SERVICE TECHNICIAN GLUCOSE POCT, B Routine 06/05/2017 2:48 PM AIR CONDITIONING SERVICE TECHNICIAN GLUCOSE POCT, B Routine 06/05/2017 1:25 PM AIR CONDITIONING SERVICE TECHNICIAN ELECTROLYTE (CHEM 4) PANEL, S/P Routine 06/05/2017 12:35 PM AIR CONDITIONING SERVICE TECHNICIAN GLUCOSE POCT, B Routine 06/05/2017 12:14 PM AIR CONDITIONING SERVICE TECHNICIAN GLUCOSE POCT, B Routine 06/05/2017 11:26 AM AIR CONDITIONING SERVICE TECHNICIAN GLUCOSE POCT, B Routine 06/05/2017 10:31 AM AIR CONDITIONING SERVICE TECHNICIAN GLUCOSE POCT, B Routine 06/05/2017 9:33 AM AIR CONDITIONING SERVICE TECHNICIAN GLUCOSE POCT, B Routine 06/05/2017 8:37 AM AIR CONDITIONING SERVICE TECHNICIAN GLUCOSE POCT, B Routine 06/05/2017 8:00 AM AIR CONDITIONING SERVICE TECHNICIAN GLUCOSE POCT, B Routine 06/05/2017 6:41 AM AIR CONDITIONING SERVICE TECHNICIAN DX CHEST PORTABLE 1 VIEW Routine 06/05/2017 6:03 AM AIR CONDITIONING SERVICE TECHNICIAN GLUCOSE POCT, B Routine 06/05/2017 5:34 AM AIR CONDITIONING SERVICE TECHNICIAN GLUCOSE POCT, B Routine 06/05/2017 4:28 AM AIR CONDITIONING SERVICE TECHNICIAN ELPN WITH CREATININE SHEREEN, P Routine 06/05/2017 3:49 AM AIR CONDITIONING SERVICE TECHNICIAN ACTIVATED PARTIAL THROMBOPLASTIN TIME (APTT), P Routine 06/05/2017 3:49 AM AIR CONDITIONING SERVICE TECHNICIAN CBC WITHOUT DIFFERENTIAL, B Routine 06/05/2017 3:49 AM AIR CONDITIONING SERVICE TECHNICIAN ABG W/COOX Routine 06/05/2017 3:49 AM AIR CONDITIONING SERVICE TECHNICIAN PROTHROMBIN TIME (PT), P Routine 06/05/2017 3:49 AM AIR CONDITIONING SERVICE TECHNICIAN GLUCOSE POCT, B Routine 06/05/2017 3:44 AM AIR CONDITIONING SERVICE TECHNICIAN GLUCOSE POCT, B Routine 06/05/2017 2:48 AM AIR CONDITIONING SERVICE TECHNICIAN GLUCOSE POCT, B Routine 06/05/2017 1:36 AM AIR CONDITIONING SERVICE TECHNICIAN GLUCOSE POCT, B Routine 06/05/2017 12:50 AM AIR CONDITIONING SERVICE TECHNICIAN GLUCOSE POCT, B Routine 06/04/2017 11:49 PM AIR CONDITIONING SERVICE TECHNICIAN ACTIVATED PARTIAL THROMBOPLASTIN TIME (APTT), P Routine 06/04/2017 11:07 PM AIR CONDITIONING SERVICE TECHNICIAN ELPN WITH CREATININE SHEREEN, P Routine 06/04/2017 11:07 PM AIR CONDITIONING SERVICE TECHNICIAN ABG W/COOX Routine 06/04/2017 11:07 PM AIR CONDITIONING SERVICE TECHNICIAN FIBRINOGEN, P Routine 06/04/2017 11:07 PM AIR CONDITIONING SERVICE TECHNICIAN CBC WITHOUT DIFFERENTIAL, B Routine 06/04/2017 11:07 PM AIR CONDITIONING SERVICE TECHNICIAN LACTATE, B/P Routine 06/04/2017 11:07 PM AIR CONDITIONING SERVICE TECHNICIAN PROTHROMBIN TIME (PT), P Routine 06/04/2017 11:07 PM AIR CONDITIONING SERVICE TECHNICIAN ACT, POCT, B Routine 06/04/2017 11:06 PM AIR CONDITIONING SERVICE TECHNICIAN GLUCOSE POCT, B Routine 06/04/2017 11:04 PM AIR CONDITIONING SERVICE TECHNICIAN DX CHEST PORTABLE 1 VIEW Routine 06/04/2017 10:34 PM AIR CONDITIONING SERVICE TECHNICIAN ECG Routine 06/04/2017 10:13 PM AIR CONDITIONING SERVICE TECHNICIAN ABG W/COOX Routine 06/04/2017 8:19 PM AIR CONDITIONING SERVICE TECHNICIAN CALCIUM, IONIZED, S/B Routine 06/04/2017 8:19 PM AIR CONDITIONING SERVICE TECHNICIAN LACTATE, B/P Routine 06/04/2017 8:19 PM AIR CONDITIONING SERVICE TECHNICIAN GLUCOSE, WHOLE BLOOD Routine 06/04/2017 8:19 PM AIR CONDITIONING SERVICE TECHNICIAN POTASSIUM, B Routine 06/04/2017 8:19 PM AIR CONDITIONING SERVICE TECHNICIAN SODIUM, S/P Routine 06/04/2017 8:19 PM AIR CONDITIONING SERVICE TECHNICIAN ACT, POCT, B Routine 06/04/2017 8:18 PM AIR CONDITIONING SERVICE TECHNICIAN GLUCOSE POCT, B Routine 06/04/2017 8:18 PM AIR CONDITIONING SERVICE TECHNICIAN HEMOGLOBIN (HGB), POCT, B Routine 06/04/2017 8:17 PM AIR CONDITIONING SERVICE TECHNICIAN ACTIVATED PARTIAL THROMBOPLASTIN TIME (APTT), P Routine 06/04/2017 7:32 PM AIR CONDITIONING SERVICE TECHNICIAN FIBRINOGEN, P Routine 06/04/2017 7:32 PM AIR CONDITIONING SERVICE TECHNICIAN PROTHROMBIN TIME (PT), P Routine 06/04/2017 7:32 PM AIR CONDITIONING SERVICE TECHNICIAN CBC WITHOUT DIFFERENTIAL, B Routine 06/04/2017 7:32 PM AIR CONDITIONING SERVICE TECHNICIAN GLUCOSE POCT, B Routine 06/04/2017 7:27 PM AIR CONDITIONING SERVICE TECHNICIAN LACTATE, B/P Routine 06/04/2017 6:50 PM AIR CONDITIONING SERVICE TECHNICIAN GLUCOSE POCT, B Routine 06/04/2017 6:48 PM AIR CONDITIONING SERVICE TECHNICIAN ABG W/COOX Routine 06/04/2017 5:27 PM AIR CONDITIONING SERVICE TECHNICIAN GLUCOSE POCT, B Routine 06/04/2017 5:25 PM AIR CONDITIONING SERVICE TECHNICIAN GLUCOSE POCT, B Routine 06/04/2017 4:44 PM AIR CONDITIONING SERVICE TECHNICIAN GLUCOSE POCT, B Routine 06/04/2017 3:37 PM AIR CONDITIONING SERVICE TECHNICIAN DX CHEST PORTABLE 1 VIEW Routine 06/04/2017 3:04 PM AIR CONDITIONING SERVICE TECHNICIAN ACT, POCT, B Routine 06/04/2017 2:41 PM AIR CONDITIONING SERVICE TECHNICIAN PROTHROMBIN TIME (PT), P Routine 06/04/2017 2:41 PM AIR CONDITIONING SERVICE TECHNICIAN ACTIVATED PARTIAL THROMBOPLASTIN TIME (APTT), P Routine 06/04/2017 2:41 PM AIR CONDITIONING SERVICE TECHNICIAN CALCIUM, IONIZED, S/B Routine 06/04/2017 2:41 PM AIR CONDITIONING SERVICE TECHNICIAN ABG W/COOX Routine 06/04/2017 2:41 PM AIR CONDITIONING SERVICE TECHNICIAN LACTATE, B/P Routine 06/04/2017 2:41 PM AIR CONDITIONING SERVICE TECHNICIAN CBC WITHOUT DIFFERENTIAL, B Routine 06/04/2017 2:41 PM AIR CONDITIONING SERVICE TECHNICIAN FIBRINOGEN, P Routine 06/04/2017 2:41 PM AIR CONDITIONING SERVICE TECHNICIAN ELPN WITH CREATININE SHEREEN, P Routine 06/04/2017 2:41 PM AIR CONDITIONING SERVICE TECHNICIAN GLUCOSE POCT, B Routine 06/04/2017 2:31 PM AIR CONDITIONING SERVICE TECHNICIAN DX CHEST PORTABLE 1 VIEW Routine 06/04/2017 1:59 PM AIR CONDITIONING SERVICE TECHNICIAN ACTIVATED PARTIAL THROMBOPLASTIN TIME (APTT), P Routine 06/04/2017 12:37 PM AIR CONDITIONING SERVICE TECHNICIAN PLATELETS, B Routine 06/04/2017 12:37 PM AIR CONDITIONING SERVICE TECHNICIAN SODIUM, S/P Routine 06/04/2017 12:37 PM AIR CONDITIONING SERVICE TECHNICIAN ABG W/COOX Routine 06/04/2017 12:37 PM AIR CONDITIONING SERVICE TECHNICIAN FIBRINOGEN, P Routine 06/04/2017 12:37 PM AIR CONDITIONING SERVICE TECHNICIAN LACTATE, B/P Routine 06/04/2017 12:37 PM AIR CONDITIONING SERVICE TECHNICIAN PROTHROMBIN TIME (PT), P Routine 06/04/2017 12:37 PM AIR CONDITIONING SERVICE TECHNICIAN CALCIUM, IONIZED, S/B Routine 06/04/2017 12:37 PM AIR CONDITIONING SERVICE TECHNICIAN GLUCOSE, WHOLE BLOOD Routine 06/04/2017 12:37 PM AIR CONDITIONING SERVICE TECHNICIAN POTASSIUM, B Routine 06/04/2017 12:37 PM AIR CONDITIONING SERVICE TECHNICIAN ACT, POCT, B Routine 06/04/2017 12:36 PM AIR CONDITIONING SERVICE TECHNICIAN ACT, POCT, B Routine 06/04/2017 11:36 AM AIR CONDITIONING SERVICE TECHNICIAN POTASSIUM, B Routine 06/04/2017 11:05 AM AIR CONDITIONING SERVICE TECHNICIAN SODIUM, S/P Routine 06/04/2017 11:05 AM AIR CONDITIONING SERVICE TECHNICIAN GLUCOSE, WHOLE BLOOD Routine 06/04/2017 11:05 AM AIR CONDITIONING SERVICE TECHNICIAN CALCIUM, IONIZED, S/B Routine 06/04/2017 11:05 AM AIR CONDITIONING SERVICE TECHNICIAN ABG W/COOX Routine 06/04/2017 11:05 AM AIR CONDITIONING SERVICE TECHNICIAN ACT, POCT, B Routine 06/04/2017 10:49 AM AIR CONDITIONING SERVICE TECHNICIAN HXINTRA-OP AUTO TX Routine 06/04/2017 10:45 AM AIR CONDITIONING SERVICE TECHNICIAN ACT, POCT, B Routine 06/04/2017 10:15 AM AIR CONDITIONING SERVICE TECHNICIAN HEMOGLOBIN (HGB), POCT, B Routine 06/04/2017 10:14 AM AIR CONDITIONING SERVICE TECHNICIAN ACT, POCT, B Routine 06/04/2017 8:48 AM AIR CONDITIONING SERVICE TECHNICIAN POTASSIUM, B Routine 06/04/2017 8:42 AM AIR CONDITIONING SERVICE TECHNICIAN ABG W/COOX Routine 06/04/2017 8:42 AM AIR CONDITIONING SERVICE TECHNICIAN GLUCOSE, WHOLE BLOOD Routine 06/04/2017 8:42 AM AIR CONDITIONING SERVICE TECHNICIAN LACTATE, B/P Routine 06/04/2017 8:42 AM AIR CONDITIONING SERVICE TECHNICIAN SODIUM, S/P Routine 06/04/2017 8:42 AM AIR CONDITIONING SERVICE TECHNICIAN CALCIUM, IONIZED, S/B Routine 06/04/2017 8:42 AM AIR CONDITIONING SERVICE TECHNICIAN ANESTHESIOLOGY IMAGE EXAM Routine 06/04/2017 7:50 AM AIR CONDITIONING SERVICE TECHNICIAN ECHO TRANSESOPHAGEAL (JOSTIN) Routine 06/04/2017 7:37 AM AIR CONDITIONING SERVICE TECHNICIAN ECHOCARDIOLOGY IMAGE EXAM Routine 06/04/2017 6:45 AM AIR CONDITIONING SERVICE TECHNICIAN ECG Routine 06/01/2017 12:34 PM AIR CONDITIONING SERVICE TECHNICIAN US LOWER EXTREMITY VEINS Routine 06/01/2017 12:09 PM AIR CONDITIONING SERVICE TECHNICIAN US UPPER EXTREMITY ARTERIES GRAFT Routine 06/01/2017 12:08 PM AIR CONDITIONING SERVICE TECHNICIAN ABORH, RBC Routine 06/01/2017 11:56 AM AIR CONDITIONING SERVICE TECHNICIAN ANTIBODY SCREEN, B Routine 06/01/2017 11:55 AM AIR CONDITIONING SERVICE TECHNICIAN ABORH, RBC Routine 06/01/2017 11:55 AM AIR CONDITIONING SERVICE TECHNICIAN CBC WITH DIFFERENTIAL, B Routine 06/01/2017 10:37 AM AIR CONDITIONING SERVICE TECHNICIAN POTASSIUM, S/P Routine 06/01/2017 10:37 AM AIR CONDITIONING SERVICE TECHNICIAN SODIUM, S/P Routine 06/01/2017 10:37 AM AIR CONDITIONING SERVICE TECHNICIAN BUN (BLOOD UREA NITROGEN), S/P Routine 06/01/2017 10:37 AM AIR CONDITIONING SERVICE TECHNICIAN PROTHROMBIN TIME (PT), P Routine 06/01/2017 10:37 AM AIR CONDITIONING SERVICE TECHNICIAN CREATININE WITH EGFR, S/P Routine 06/01/2017 10:37 AM AIR CONDITIONING SERVICE TECHNICIAN HEMOGLOBIN A1C, B Routine 06/01/2017 10:37 AM AIR CONDITIONING SERVICE TECHNICIAN DX CHEST AP OR PA AND LATERAL 2 VIEWS Routine 06/01/2017 9:36 AM AIR CONDITIONING SERVICE TECHNICIAN CARDIOLOGY IMAGE EXAM Routine 05/08/2017 11:15 AM AIR CONDITIONING SERVICE TECHNICIAN CARDIAC CATHETERIZATION Routine 05/08/2017 11:08 AM AIR CONDITIONING SERVICE TECHNICIAN COENZYME Q10, TOTAL, P Routine 05/08/2017 7:52 AM AIR CONDITIONING SERVICE TECHNICIAN ALKALINE PHOSPHATASE, S/P Routine 05/08/2017 7:52 AM AIR CONDITIONING SERVICE TECHNICIAN LIPASE, S/P Routine 05/08/2017 7:52 AM AIR CONDITIONING SERVICE TECHNICIAN 25-HYDROXYVITAMIN D2 AND D3, S Routine 05/08/2017 7:52 AM AIR CONDITIONING SERVICE TECHNICIAN ALANINE AMINOTRANSFERASE (ALT), S/P Routine 05/08/2017 7:52 AM AIR CONDITIONING SERVICE TECHNICIAN BILIRUBIN, TOT, S/P Routine 05/08/2017 7:52 AM AIR CONDITIONING SERVICE TECHNICIAN ECG Routine 05/04/2017 8:36 AM CDT CBC [...] WRIST 3+ VIEWS Routine 05/29/2016 8:22 AM AIR CONDITIONING SERVICE TECHNICIAN DX HAND UNILATERAL 2 VIEWS Routine 05/29/2016 8:22 AM AIR CONDITIONING SERVICE TECHNICIAN DX FINGER UNILATERAL 2+ VIEWS Routine 05/29/2016 8:22 AM AIR CONDITIONING SERVICE TECHNICIAN CARDIAC CATHETERIZATION Routine 05/02/2016 10:50 AM CDT [...] Routine 10/11/2012 9:50 AM CDT Results * CAR CARDIAC DEVICE INTERROGATION (02/04/2025 7:40 AM CDT) Only the most recent of4 resultswithin the time period is included. Date Time Interrogation Session [id number] [facility] Type Interrogation Session Remote Scheduled [facility] Implantable Pulse Generator Shipping Agent [employer] [facility] Implantable Pulse Generator Type Defibrillator [facility] Implantable Pulse Generator Model D533 [facility] Implantable Pulse Generator Serial Number [id number] [facility] Implantable Pulse Generator Implant Date 20240319 [facility] Battery Remaining Percentage 100.00 % [facility] Battery Remaining Longevity 156.0 mo [facility] Battery Status Beginning of Service [facility] Capacitor Charge Time 10.000 [facility] Chandrakant Statistic RA Percent Paced 87.00 [facility] [place] Statistic RV Percent Paced 6.00 [facility] Atrial Tachy Statistic AT/AF [place] Percent 0.00 [facility] Lead Channel Sensing Intrinsic Amplitude 4.600 [facility] Lead Channel Setting Sensing Sensitivity 0.25 [facility] Lead Channel Impedance Value 570 [facility] Lead Channel Measurements Date and Time 20250203 [facility] Lead Channel Setting Pacing Amplitude 2.000 [facility] Lead Channel Setting Pacing Pulse Width 0.4 [facility] Lead Channel Sensing Intrinsic Amplitude 6.800 [facility] Lead Channel Setting Sensing Sensitivity 0.60 [facility] Lead Channel Impedance Value 350 [facility] Lead Channel Pacing Threshold Amplitude 0.600 [facility] Lead Channel Pacing Threshold Pulse Width 0.4 [facility] Lead Channel Measurements Date and Time [id number] [facility] Lead Channel Setting Pacing Amplitude 2.000 [facility] Lead Channel Setting Pacing Pulse Width 0.4 [facility] [place] Setting Mode (NBG Code) DDDR [facility] [place] Setting Lower Rate Limit 70 [facility] [place] Setting AT Mode Switch Rate 170 [facility] [place] Setting Maximum Tracking Rate 120 [facility] [place] Setting Maximum Sensor Rate 120 [facility] [place] Setting PAV Del[place] 120 [facility] [place] Setting CARLOS Delay 100 [facility] Therapy Statistic Recent Shocks Delivered 0 [facility] Therapy Statistic Recent Shocks Aborted 0 [facility] Therapy Statistic Recent ATP Delivered [...] 2 [facility] Implantable Lead Shipping Agent [employer] [facility] Implantable Lead Model 7841-52 [facility] Implantable Lead Location Right Atrium [facility] Implantable Lead Connection Status Connected [facility] Implantable Lead Serial Number [id number] [facility] Implantable Lead Implant Date 20240319 [facility] Implantable Lead Polarity Type Bipolar Lead [facility] Implantable Lead Special Function Lead length: 52.00 cm [facility] Implantable Lead Shipping Agent [employer] [facility] Implantable Lead Model 0672-59 [facility] Implantable Lead Location Right Ventricle [facility] Implantable Lead Connection Status Connected [facility] Implantable Lead Serial Number [id number] [facility] Implantable Lead Implant Date [...] IMPLANTABLE CARDIAC DEVICE Edited Result - Final * CT Chest without IV Contrast (01/16/2025 1:02 PM CDT) Anatomical Region Laterality Modality Chest, Thoracic RST LOS, Tho racic ARZ LOS, Thoracic FLA LOS N/A Computed Tomography, Compute d Tomography Impressions 01/16/2025 1:18 PM CDT Mild nonspecific interstitial fibrotic changes are stable compared with a prior exam from 2018. Narrative 01/16/2025 1:18 PM CDT EXAM: CT [...] Stable mild dilation of the ascending aorta [id number] mm. ICD leads in the RA and RV. Small nonobstructing right renal calculi. Hepatic cysts. Degenerative changes of the spine. Stable anterior wedging of upperthoracic vertebral bodies. IMPRESSION: Mild nonspecific interstitial fibrotic changes are stable compared with aprior exam from 2019. Kevin Church M.D. [facility] CT PROCEDURES Final Re sult * Dipstick, Urine (12/29/2024 9:00 AM CDT) Hemoglobin, QL, U Negative Negative 12/29/2024 10:34 AM CDT DTL Leukocyte Esterase, U Negative Negative 12/29/2024 10:34 AM CDT DTL Nitrite, U Negative Negative 12/29/2024 10:34 AM CDT DTL Ketone, U Negative Negative mg/dL 12/29/2024 10:34 AM CDT DTL Glucose, U Negative Negative mg/dL 12/29/2024 10:34 AM CDT DTL Urine 12/29/2024 9:00 AM CDT 12/29/2024 9:50 AM CDT us Soft Results Interface LAB URINE ORDERABLES Catherine l Result [facility] [place] [address] [place] [address], [facility] [address] [place] [address] * Microscopic Automated (12/29/2024 9:00 AM CDT) Microscopy Normal 12/29/2024 10:34 AM CDT DTL RBC None Seen <3 /hpf 12/29/2024 10:34 AM CDT DTL WBC None Seen /hpf 12/29/2024 10:34 AM CDT DTL Comment: ----REFERENCE VALUE---- <4 (Males) <11 (Females) Urine 12/29/2024 9:00 AM CDT 12/29/2024 9:50 AM CDT us Soft Results Interface LAB URINE ORDERABLES Catherine l Result Performing Organization Address City/[facility]/ZIP Co de Phone Number [facility] [place] [address] [place] [address], [facility] [address] [place] [address] * pH, Urine (12/29/2024 9:00 AM CDT) pH, U 6.5 4.5 - 8.0 12/29/2024 10: 42 AM CDT DTL Urine 12/29/2024 9:00 AM CDT 12/29/2024 9:50 AM CDT us Soft Results Interface LAB URINE ORDERABLES Catherine l Result [facility] [place] [address] [place] [address], [facility] [address] [place] [address] * Osmolality, Urine (12/29/2024 9:00 AM CDT) Osmolality, U 232 150 - 1150 mOsm/kg 12/29/2024 10:42 AM CDT DTL Urine 12/29/2024 9:00 AM CDT 12/29/2024 9:50 AM CDT Soft Results Interface LAB URINE ORDERABLES Catherine l Result Performing Organization Address [facility] Co de Phone Number [facility] [place] [address] [place], [place] [address] [address] [place] [address] * (ABNORMAL) Urinalysis, with Microscopic: Urine, Midstream (12/29/2024 9:00 AM CDT) Only the most recent of2 resultswithin the time period is included. Source Urine, Urine, Midstream 12/29/2024 9:50 AM CDT DTL Color, U Yellow 12/29/2024 9:50 AM CDT DTL Clarity, U Clear 12/29/2024 9:50 AM CDT DTL Protein, U 7 <26 mg/dL 12/29/2024 10:46 AM CDT DTL Protein/Osmol ality 0.30 <0.42 ratio 12/29/2024 10:46 AM CDT DTL Predicted 24 HR Protein, U 301(H) <229 mg/24 h 12/29/2024 10:46 AM CDT DTL Predicted Range 95-947 mg/24 h 12/29/2024 10:46 AM CDT DTL Urine (Urine, Midstream) 12/29/2024 9:00 AM CDT 12/29/2024 9:50 AM CDT Kalin Dumont M.D. LAB URINE ORDERABLES Final Result Performing Organization Address [facility]/ZIP Co de Phone Number [facility] [place] [address] [place] [address], [facility] [address] [place] [id number] * (TTE) 2D ECHO DOPPLER COLOR (12/08/2024 4:28 PM CDT) Ejection Fraction 43 MC CV EIMS Sinus of Valsalva 43 MC CV EIMS Wall Motion Score Index 1.69 MC CV EIMS LV Mass Index 103 MC CV EIMS LV End-Diastolic Diameter 54 MC CV EIMS LV End-Systolic Diameter 42 MC CV EIMS MV E Velocity 0.4 MC CV EIMS MV A Velocity 0.9 MC CV EIMS MV E/A 0.44 MC CV EIMS MV e' Velocity Medial 0.05 MC CV EIMS MV e' Velocity Lateral 0.09 MC CV EIMS MV E/e' Medial 8 MC CV EIMS MV E/e' Lateral 4.4 MC CV EIMS Left ventricular stroke volume index 32 MC CV EIMS Cardiac Output 4.47 MC CV EIMS Cardiac Index 2.23 MC CV EIMS LV Interventricular Septal Wall Thickness 10 MC CV EIMS LV Posterior Wall Thickness 10 MC CV EIMS LV Relative Wall Thickness 37 MC CV EIMS Tricuspid Annular S 0.04 MC CV EIMS TR Vmax 1.92 MC CV EIMS Estimated RA Pressure (Echo RAP) 5 MC CV EIMS RV Systolic Pressure (with Echo RAP) 20 MC CV EIMS AV mean gradient 4 MC CV EIMS Aortic valve area 2.9 MC CV EIMS Aortic Valve Dimensionless Index 0.59 MC CV EIMS MV mean gradient 2 MC CV EIMS LA Volume Index 34 MC CV EIMS Aortic Valve Systolic Peak Velocity 1.3 MC CV EIMS Anatomical Region Laterality Modality Echocardiography 12/08/2024 3:11 PM CDT Impressions 12/08/2024 5:17 PM CDT Status post coronary artery bypass graft(s) ([place], 06-04-2017). Patient refuses use of any ultrasound enhancement agent. LEFT VENTRICLE:Normal left ventricular chamber size. Abnormal left ventricular geometry with eccentric left ventricular hypertrophy. Calculated 2-D linear left ventricular ejection fraction 43%. Regional wall motion abnormalities were present (see wall motion graphics). Grade 1/3 left ventricular diastolic dysfunction, consistent with low to normal left ventricular filling pressure. RIGHT VENTRICLE:Normal right ventricular chamber size. Mildly reduced right ventricular systolic function. Estimated right ventricular systolic pressure 20 mmHg (right atrial pressure of 5 mmHg). ATRIA:Enlarged left atrial size by visual estimate. Normal right atrial size by visual estimate. CARDIAC VALVES:Trileaflet aortic valve. Mildly sclerotic aortic valve. Aortic valve systolic mean Doppler gradient 4 mmHg. Trivial aortic valve regurgitation. Mildly thickened mitral valve. Mildly calcified mitral annulus. Mitral valve diastolic mean Doppler gradient 2 mmHg (heart rate 75 BPM). Mild mitral valve regurgitation. Pulmonary valve not well visualized. Normal pulmonary valve systolic velocities. Trivial pulmonary valve regurgitation. Normal tricuspid valve. Trivial tricuspid valve regurgitation. OTHER ECHO FINDINGS:Device lead (s) identified in right atrium and right ventricle. Normal inferior vena cava size with normal inspiratory collapse (>50%). Borderline enlarged sinus of Valsalva diameter of 43 mm. Upper limit of normal of the sinus of Valsalva for age, sex and BSA is 43 mm. Ascending aorta not well visualized. Abdominal aorta incompletely visualized. Normal abdominal aorta Doppler flow pattern. No atrial level shunt by color flow imaging. No intracardiac mass or thrombus, but the left atrial appendage cannot be visualized adequately with transthoracic echo to exclude thrombus in this location. No pericardial effusion. For the complete report, see the Order-Level Documents. Narrative 12/08/2024 5:17 PM CDT For the complete report, see the Order-Level Documents. Hemodynamics Heart Rate: 70 BPM Blood Pressure: 161 / 106 mmHg ECG: Sinus rhythm Final Impressions 1. Normal left ventricular chamber size, regional wall motion abnormalities were present (see wall motion graphics), calculated 2-D linear ejection fraction 43%. 2. Left ventricular cardiac index 2.23 l/min/m2. 3. Grade 1/3 left ventricular diastolic dysfunction, consistent with low to normal left ventricular filling pressure. 4. Normal right ventricular chamber size, mildly reduced systolic function, estimated right ventricular systolic pressure 20 mmHg (right atrial pressure of 5 mmHg). 5. Mildly sclerotic aortic valve. 6. Borderline enlarged sinus of Valsalva diameter of 43 mm. 7. Compared to the report of 03/18/2024 the following changes have occurred: There is worsening left ventricular systolic motion and regional wall motion abnormalities. Side by side comparison of images performed. Procedure Note Mary Bernal M.D. - 12/08/2024 For the complete report, see the Order-Level Documents. Hemodynamics Heart Rate: 70 BPM Blood Pressure: 161 / 106 mmHg ECG: Sinus rhythm Final Impressions 1. Normal left ventricular chamber size, regional wall motionabnormalities were present (see wall motion graphics), calculated 2-Dlinear ejection fraction 43%. 2. Left ventricular cardiac index 2.23 l/min/m2. 3. Grade 1/3 left ventricular diastolic dysfunction, consistent with lowto normal left ventricular filling pressure. 4. Normal right ventricular chamber size, mildly reduced systolicfunction, estimated right ventricular systolic pressure 20 mmHg (rightatrial pressure of 5 mmHg). 5. Mildly sclerotic aortic valve. 6. Borderline enlarged sinus of Valsalva diameter of 43 mm. 7. Compared to the report of 03/18/2024 the following changes haveoccurred: There is worsening left ventricular systolic motion and regionalwall motion abnormalities. Side by side comparison of images performed. Findings Status post coronary artery bypass graft(s) ([place], 06-04-2017). Patientrefuses use of any ultrasound enhancement agent. LEFT VENTRICLE:Normal left ventricular chamber size. Abnormal leftventricular geometry with eccentric left ventricular hypertrophy.Calculated 2-D linear left ventricular ejection fraction 43%. Regionalwall motion abnormalities were present (see wall motion graphics). Grade1/3 left ventricular diastolic dysfunction, consistent with low to normalleft ventricular filling pressure. RIGHT VENTRICLE:Normal right ventricular chamber size. Mildly reducedright ventricular systolic function. Estimated right ventricular systolicpressure 20 mmHg (right atrial pressure of 5 mmHg). ATRIA:Enlarged left atrial size by visual estimate. Normal right atrialsize by visual estimate. CARDIAC VALVES:Trileaflet aortic valve. Mildly sclerotic aortic valve.Aortic valve systolic mean Doppler gradient 4 mmHg. Trivial aortic valveregurgitation. Mildly thickened mitral valve. Mildly calcified mitralannulus. Mitral valve diastolic mean Doppler gradient 2 mmHg (heart rate75 BPM). Mild mitral valve regurgitation. Pulmonary valve not wellvisualized. Normal pulmonary valve systolic velocities. Trivial pulmonaryvalve regurgitation. Normal tricuspid valve. Trivial tricuspid valveregurgitation. OTHER ECHO FINDINGS:Device lead (s) identified in right atrium and rightventricle. Normal inferior vena cava size with normal inspiratory collapse(>50%). Borderline enlarged sinus of Valsalva diameter of 43 mm. Upperlimit of normal of the sinus of Valsalva for age, sex and BSA is 43 mm.Ascending aorta not well visualized. Abdominal aorta incompletelyvisualized. Normal abdominal aorta Doppler flow pattern. No atrial levelshunt by color flow imaging. No intracardiac mass or thrombus, but theleft atrial appendage cannot be visualized adequately with transthoracicecho to exclude thrombus in this location. No pericardial effusion. For the complete report, see the Order-Level Documents. us Arminda Schaeffer M.D. CV ECHO PROCEDURES Final Result * DX Chest AP or PA and Lateral 2 Views (12/08/2024 11:59 AM CDT) Only the most recent of9 resultswithin the time period is included. Anatomical Region Laterality Modality Chest, Thoracic RST LOS, Tho racic ARZ LOS, Thoracic FLA LOS N/A Digital Radiography Impressions 12/08/2024 12:02 PM CDT Sternotomy with mediastinal clips. AICD. Cardiomegaly. Calcified and tortuous aorta. Fibrosis or linear atelectasis left base. AV pacemaker. Old left rib fractures. Degenerative changes thoracic spine. No significant change since 03/19/2024. Narrative 12/08/2024 12:02 PM CDT EXAM: DX CHEST AP OR PA AND LATERAL 2 VIEWS Procedure Note Pablo Dow M.D. - 12/08/2024 EXAM: DX CHEST AP OR PA AND LATERAL 2 VIEWS IMPRESSION: Sternotomy with mediastinal clips. AICD. Cardiomegaly. Calcified andtortuous aorta. Fibrosis or linear atelectasis left base. AV pacemaker.Old left rib fractures. Degenerative changes thoracic spine. Nosignificant change since 03/19/2024. us Arminda Schaeffer M.D. IMG DIAGNOSTIC IMAGING PROCEDURE S Final Result * Thyroid Function [place] (11/19/2024 11:08 AM CDT) Only the most recent of4 resultswithin the time period is included. TSH, Sensitive 3.4 0.3 - 4.2 mIU/L 11/19/2024 12:17 PM CDT DTL Blood (Blood, Venous) 11/19/2024 11:08 AM CDT 11/19/2024 11:44 AM CDT us Arminda Schaeffer M.D. LAB BLOOD ADD-ON Final Result [facility] [place] [address] [place] [address], [facility] DTL [facility] [address] [place] [address] * (ABNORMAL) Comprehensive Metabolic Panel (11/19/2024 11:08 AM CDT) Only the most recent of6 resultswithin the time period is included. [facility] Potassium, S 4.5 3.6 - 5.2 mmol/L 11/19/2024 12:17 PM CDT DTL Sodium, S 142 135 - 145 mmol/L 11/19/2024 12:17 PM CDT DTL Chloride, S 104 98 - 107 mmol/L 11/19/2024 12:17 PM CDT DTL Bicarbonate, S 26 22 - 29 mmol/L 11/19/2024 12:17 PM CDT DTL Anion Gap 12 7 - 15 11/19/2024 12:17 PM CDT DTL BUN (Blood Urea Nitrogen), S 19 8 - 24 mg/dL 11/19/2024 12:17 PM CDT DTL Creatinine 1.81(H) 0.74 - 1.35 mg/dL 11/19/2024 12:17 PM CDT DTL Estimated GFR (eGFR) 38(L) >=60 mL/min/BS A 11/19/2024 12:17 PM CDT DTL Comment: Estimated GFR calculated using the 2020 CKD_EPI creatinine equation. Calcium, Total, S 9.0 8.8 - 10.2 mg/dL 11/19/2024 12:17 PM CDT DTL Glucose, S 121 70 - 140 mg/dL 11/19/2024 12:17 PM CDT DTL Protein, Total, S 6.2(L) 6.3 - 7.9 g/dL 11/19/2024 12:17 PM CDT DTL Albumin, S 4.2 3.5 - 5.0 g/dL 11/19/2024 12:17 PM CDT DTL Aspartate Aminotransferase (AST), S 21 8 - 48 U/L 11/19/2024 12:17 PM CDT DTL Alkaline Phosphatase, S 90 40 - 129 U/L 11/19/2024 12:17 PM CDT DTL Alanine Aminotransferase (ALT), S 13 7 - 55 U/L 11/19/2024 12:17 PM CDT DTL Bilirubin, Total, S 0.6 0.0 - 1.2 mg/dL 11/19/2024 12:17 PM CDT DTL Blood (Blood, Venous) 11/19/2024 11:08 AM CDT 11/19/2024 11:44 AM CDT Arminda Schaeffer M.D. LAB BLOOD ADD[place] [address], [facility] [address] [place] [address] * ECG 12 Lead (11/19/2024 10:41 AM CDT) Only the most recent of15 resultswithin the time period is included. Ventricular Rate ECG/Min 74 BPM MUSE LA Interval 234 ms MUSE QRSD Interval 108 ms MUSE QT Interval 414 ms MUSE QTC Interval 459 ms MUSE R [place] -52 degrees MUSE T Wave [place] 73 degrees MUSE 11/19/2024 10:4 1 AM CDT 11/19/2024 1:03 PM CDT Impressions MUSE - 11/19/2024 10:57 AM CDT Atrial-paced rhythm Premature ventricular complexes Left anterior fascicular block Nonspecific ST and T wave abnormality When compared with ECG of 19-Mar-2024 15:55, T wave abnormality is no longer present Reviewed by ARTI Griffin Narrative Procedure Note Donn Parkinson M.D. - 11/19/2024 IMPRESSION: Atrial-paced rhythm Premature ventricular complexes Left anterior fascicular block Nonspecific ST and T wave abnormality When compared with ECG of 19-Mar-2024 15:55, T wave abnormality is no longer present Reviewed by ARTI Griffin us Arminda Schaeffer M.D. ECG ORDERABLES Edited Result - Final MUSE NA * Pulmonary Function Tests (11/19/2024 9:10 AM CDT) FVC 3.42 L 11/19/2024 11:08 AM CDT [facility] FEV1 2.09 L 11/19/2024 11:08 AM CDT [facility] FEV1/FVC 61.25 % 11/19/2024 11:08 AM CDT [facility] NKP87-70% 0.96 L/s 11/19/2024 11:08 AM CDT [facility] PEF PRE 6.16 L/s 11/19/2024 11:08 AM CDT [facility] PIF PRE 5.61 L/s 11/19/2024 11:08 AM CDT [facility] Pre FEF50/FIF50 23.88 % 11:08 AM CDT [facility] FET PRE 14.78 sec 11/19/2024 11:08 AM CDT [facility] DLCO 17.56 ml/(min*mm Hg) 11/19/2024 11:08 AM CDT [facility] Pre % Pred [place] SINGLE BREATH 5.80 L 11/19/2024 11:08 AM CDT [facility] TLC 6.74 L 11/19/2024 11:08 AM CDT [facility] FRC Pre 4.38 L 11/19/2024 11:08 AM CDT [facility] RV 3.41 L 11/19/2024 11:08 AM CDT [facility] RV % TLC PRE 50.62 % 11/19/2024 11:08 AM CDT [facility] PulseRest 70.00 1/min 11/19/2024 11:08 AM CDT [facility] 11/19/2024 9:10 AM CDT Impressions [facility] - 11/19/2024 11:08 AM CDT Abnormal. Borderline obstruction. Lung volumes and diffusion capacity are normal. Pulse oximetry is normal at rest and exercise was not performed due to safety concerns. Compared to 06/15/2023, FVC and TLC have increased, while DLCO has decreased. Narrative Procedure Note Sandra Cadena M.B.B.S. - 11/19/2024 IMPRESSION: Abnormal. Borderline obstruction. Lung volumes and diffusion capacity arenormal. Pulse oximetry is normal at rest and exercise was not performeddue to safety concerns. Compared to 06/15/2023, FVC and TLC haveincreased, while DLCO has decreased. us Arminda Schaeffer M.D. PFT ORDERABLES Final Result [facility] NA * ICD DUAL CHAMBER INTERROGATION WITH PROGRAMMING (11/19/2024 8:42 AM CDT) Only the most recent of4 resultswithin the time period is included. Date Time Interrogation Session [facility] Implantable Pulse Generator Shipping Agent [employer] [facility] Implantable Pulse Generator Type Defibrillator [facility] Implantable Pulse Generator Model D533 [facility] Implantable Pulse Generator Serial Number [id number] [facility] [facility] Implantable Pulse Generator Implant Date [id number] [facility] Battery Status MATIAS FOUND ATNubefy LAB SYSTEM Chandrakant Statistic RA Percent Paced 82.00 [facility] Chandrakant Statistic RV Percent Paced 7.00 [facility] Lead Channel Sensing Intrinsic Amplitude 2.300 [facility] Lead Channel Setting Sensing Sensitivity 0.25 [facility] Lead Channel Impedance Value 575 [facility] Lead Channel Pacing Threshold Amplitude 1.100 [facility] Lead Channel Pacing Threshold Pulse Width 0.4 [facility] Lead Channel Measurements Date and Time [id number] [facility] Lead Channel Setting Pacing Amplitude 2.000 [facility] Lead Channel Setting Pacing Pulse Width 0.4 [facility] Lead Channel Sensing Intrinsic Amplitude 4.000 [facility] Lead Channel Setting Sensing Sensitivity 0.60 [facility] Lead Channel Impedance Value 326 [facility] Lead Channel Pacing Threshold Amplitude 0.600 [facility] Lead Channel Pacing Threshold [...] [facility] Murj Shock Measured Impedance 59 [facility] Zone Setting Type Category VF [facility] Murj Rate 1 200 [facility] Murj Therapies 41J, 41J [facility] AT[facility] Zone Setting Status On [facility] Murj Zone ID 1 [facility] I[facility] Zone Setting Type Category VT [facility] Murj Rate 1 150 [facility] Murj Therapies NaNJ, NaNJ F[facility] DATION [facility] Zone Setting Status Off [facility] Murj Zone ID 2 [facility] Zone Setting Type Category VT1 [facility] Murj Therapies 0J, 0J [facility] AT[facility] Zone Setting Status On [facility] Murj Zone ID 3 [facility] Implantable Lead Shipping Agent [employer] [facility] Implantable Lead Model 7841-52 [facility] Implantable Lead Location Right Atrium [facility] Implantable Lead Connection Status Connected [facility] Implantable Lead Serial Number [id number] [facility] Implantable Lead Implant Date 20240319 [facility] Implantable Lead Special Function Lead length: 52.00 cm [facility] Implantable Lead Shipping Agent [employer] [facility] Implantable Lead Model 0672-59 [facility] Implantable Lead Location Right Ventricle [facility] Implantable Lead Connection Status Connected [facility] Implantable Lead Serial Number [id number] [facility] Implantable Lead Implant Date 20240319 [facility] Implantable Lead Special Function Lead length: 59.00 cm [facility] Anatomical Region Laterality Modality Echocardiography 12/02/2024 10:3 1 AM CDT Impressions 12/02/2024 10:31 AM CDT Encounter Impression: Title: Normal In-Office: No Events * Normal Device Function * Alerts or events: None * Battery: MATIAS, 13 years * Sensing, impedance and thresholds reviewed and tested * Presenting Rhythm: APVS at 70 bpm. * Underlying Rhythm: Sinus bradycardia at 52 bpm. * Heart Rate Histograms reviewed * Pacing and Detection Parameters were evaluated Plan: This patient underwent device interrogation. I agree that the device interrogation was medically indicated to provide appropriate care and continue routine device interrogations as indicated. Encounter Summary: This report includes 1 transmission that was received on 2024-11-19. Battery, lead impedance, sensing amplitude and pacing threshold data was reviewed. Narrative Procedure Note Eris Bennett M.D. - 12/02/2024 IMPRESSION: Encounter Impression: Title: Normal In-Office: No Events * Normal Device Function * Alerts or events: None * Battery: MATIAS, 13 years * Sensing, impedance and thresholds reviewed and tested * Presenting Rhythm: APVS at 70 bpm. * Underlying Rhythm: Sinus bradycardia at 52 bpm. * Heart Rate Histograms reviewed * Pacing and Detection Parameters were evaluated Plan: This patient underwent device interrogation. I agree that the deviceinterrogation was medically indicated to provide appropriate care andcontinue routine device interrogations as indicated. Encounter Summary: This report includes 1 transmission that was receivedon 2024-11-19. Battery, lead impedance, sensing amplitude and pacingthreshold data was reviewed. us Arminda Schaeffer M.D. CV IMPLANTABLE CARDIAC DEVICE Fi nal Result * DIAGNOSTIC EPS, ICD IMPLANT (03/19/2024 3:12 [...] M.D. LAB BLOOD ADD-ON Fi nal Result Performing Organization Address City/[facility]/ZIP Co de Phone Number [facility] [place] [address] [place] [address], [facility] DTL [facility] [address] [place] [address] * Type and Screen (with Reflex Antibody ID) (03/18/2024 11:06 AM CDT) Pathologist [facility] ABORh O Pos Not applicable 03/18/2024 12:55 PM CDT ETRM Antibody Screen Negative Negative 03/18/2024 1:07 PM CDT ETRM Type & Screen Expiration 03/21/2024 23:59 03/18/2024 12:55 PM CDT ETRM Testing Location [place] DEFAULT 03/18/2024 11:44 AM CDT ETRM Blood (Blood, Venous) 03/18/2024 11:06 AM CDT 03/18/2024 11:44 AM CDT Kemal Gu M.D. LAB BLOOD BANK TEST ORDERABLES Final Result Performing Organization Address City/[facility]/ZIP Co de Phone Number [facility] [place] [address] [place], [place] [address] ETRM [facility] [address] [place] [address] * (TTE) 2D ECHO DOPPLER COLOR (03/18/2024 [...] EIMS TR Vmax 2.5 MC CV EIMS Estimated RA Pressure (Echo RAP) 5 MC CV EIMS RV Systolic Pressure (with Echo RAP) 30 MC CV EIMS Anatomical Region Laterality Modality Echocardiography 03/18/2024 8:48 AM CDT Impressions 03/18/2024 10:27 AM CDT Status post coronary artery bypass graft(s) ([place], 06-04-2017). LEFT VENTRICLE:Mildly enlarged left ventricular chamber [...] Findings Status post coronary artery bypass graft(s) ([place], 06-04-2017). LEFT VENTRICLE:Mildly enlarged left ventricular chamber [...] of3 resultswithin the time period is included. [facility] Potassium, S 4.8 3.6 - 5.2 mmol/L [...] M.D. LAB BLOOD ADD-ON Final Resul t [facility] [place] [address] [place] [address], [facility] [address] [place] [address] * HOLTER MONITOR - IN CLINIC BANDER AND CELLOPHANER MACHINE (12/18/2023 12:08 PM CDT) Only the most recent of5 resultswithin the time period is included. Bradycardia Runs 0 count HOLTER SENTINEL Min Heart Rate 46 ALEIDA R SENTINEL Holter Pauses 0 count HOLTER SENTINEL SVE Max Per Hour Time [id number] HOLTER SENTINEL SVE Percent Beats 0 percent HOLTER SENTINEL VT Max Rate Time [id number] HOLTER SENTINEL Max Heart Rate 106 ALEIDA R SENTINEL VT Longest 5 beats HOLTER SENTINEL VT Runs 17 count HOLTER SENTINEL SVE Max Per Hour 77 count HOLTER SENTINEL SVE Total Beats 421 count HOLTER SENTINEL VE Total Beats 16,415 count ALEIDA R SENTINEL Recording Date [id number] HOLTER SENTINEL VT Max Rate 124 HOLTER SENTINEL Mean Heart Rate 71 HOLTER SENTINEL VE Percent Beats 12 percent HOLTER SENTINEL Max Heart Rate Time [id number] HOLTER SENTINEL VT Longest Time [id number] HOLTER SENTINEL VE Max Per Hour 1,346 count HOLTER SENTINEL Analysis Date 20,240,625 ALEIDA R SENTINEL Min Heart Rate Time [id number] HOLTER SENTINEL VE Max Per Hour Time [id number] HOLTER SENTINEL AF Count 0 count HOLTER SENTINEL SVT Runs 0 count HOLTER SENTINEL Tachycardia Runs 0 count HOLTER SENTINEL 12/18/2023 12:0 6 PM CDT Kemal Gu M.D. CV CARDIAC SERVICES PROCEDURES Final Result Performing Organization Address [facility] Co de Phone Number HOLTER SENTINEL NA * MR head/brain wo con-Outside MR Neuro (09/19/2023 2:55 PM CDT) Only the most recent of4 resultswithin the time period is included. Narrative [facility] - 10/02/2023 4:32 PM CDT This order has been created and auto-finalized to support the import of outside images. If available, original interpretation can be found on the Media Tab in Chart Review, in Document Viewer, or as an image in QREADS. If a re-interpretation or overread is required please follow defined workflow. Provider Not In System IMG MRI PROCEDURES Final Result Performing Organization Address [facility] de Phone Number [facility] NA * CT angio head-Outside CT Neuro (09/19/2023 9:55 AM CDT) Only the most recent of3 resultswithin the time period is included. Narrative [facility] - 10/02/2023 4:40 PM CDT This order has been created and auto-finalized to support the import of outside images. If available, original interpretation can be found on the Media Tab in Chart Review, in Document Viewer, or as an image in QREADS. If a re-interpretation or overread is required please follow defined workflow. Provider Not In System IMG CT PROCEDURES Final R esult Performing Organization Address [facility] Co de Phone Number [facility] NA * CT ANGIO NECK-Outside Other (09/19/2023 9:45 AM CDT) Only the most recent of2 resultswithin the time period is included. Narrative [facility] - 11/08/2023 1:05 PM CDT This order has been created and auto-finalized to support the import of outside images. If available, original interpretation can be found on the Media Tab in Chart Review, in Document Viewer, or as an image in QREADS. If a re-interpretation or overread is required please follow defined workflow. us Provider Not In System IMG DIAGNOSTIC IMAGING LA OCEDURES Final Result [facility] NA * ECHO TTE LIMITED W CONTRAST W COLOR W DOPPLER-Outside US Card (09/19/2023 12:00 AM CDT) Narrative [facility] - 09/26/2023 4:22 PM CDT This order [...] PROCE DURES Final Result Performing Organization Address City/[facility]/ZIP Co de Phone Number [facility] NA * MR Cardiac without and with IV Contrast (07/06/2023 12:32 PM AIR CONDITIONING SERVICE TECHNICIAN) Only the most recent of2 resultswithin the time period is included. Anatomical Region Laterality Modality Cardiac, Cardiovascular RST LOS, Thoracic ARZ LOS, Cardiovascular FLA LOS N/A Magnetic Resonance Impressions 07/06/2023 2:46 PM AIR CONDITIONING SERVICE TECHNICIAN 1. Linear mid-myocardial and subepicardial late enhancement [...] function. RVEF 45%. Narrative 07/06/2023 2:46 PM AIR CONDITIONING SERVICE TECHNICIAN EXAM: MR CARDIAC WITHOUT AND WITH IV [...] function. RVEF 45%. us Neha Gardner M.D. IM MRI PROCEDURES Final Res ult * Lipid Panel (07/06/2023 10:59 AM AIR CONDITIONING SERVICE TECHNICIAN) Only the most recent of8 resultswithin the time period is included. Triglycerides 121 mg/dL 07/06/2023 11:55 AM AIR CONDITIONING SERVICE TECHNICIAN DTL Comment: ----REFERENCE VALUE---- Normal: <150 mg/dL Borderline High: 150-199 mg/dL High: 200-499 mg/dL Very High: > or =500 mg/dL Cholesterol, Total 143 mg/dL 2023 11:55 AM AIR CONDITIONING SERVICE TECHNICIAN DTL Comment: ----REFERENCE VALUE---- Desirable: < 200 mg/dL Borderline High: 200 - 239 mg/dL High: > or = 240 mg/dL Cholesterol, LDL, Calculated 62 mg/dL 07/06/2023 11:55 AM AIR CONDITIONING SERVICE TECHNICIAN DTL Comment: ----REFERENCE VALUE---- Desirable: <100 mg/dL Above Desirable: 100-129 mg/dL Borderline High: 130-159 mg/dL High: 160-189 mg/dL Very High: >=190 mg/dL ----ADDITIONAL INFORMATION---- LDL cholesterol calculated using the Madrid/NIH equation. Cholesterol, HDL, S 60 >=40 mg/dL 07/06/2023 11:55 AM AIR CONDITIONING SERVICE TECHNICIAN DTL Cholesterol, Non-HDL, Calculated 83 mg/dL 07/06/2023 11:55 AM AIR CONDITIONING SERVICE TECHNICIAN DTL Comment: ----REFERENCE VALUE---- Desirable: <130 mg/dL Above Desirable: 130-159 mg/dL Borderline High: 160-189 mg/dL High: 190-219 mg/dL Very High: > or =220 mg/dL Fasting (8 HR or more) No 07/06/2023 11:37 AM AIR CONDITIONING SERVICE TECHNICIAN DTL Blood (Blood, Venous) 07/06/2023 10:59 AM AIR CONDITIONING SERVICE TECHNICIAN 07/06/2023 11:37 AM AIR CONDITIONING SERVICE TECHNICIAN us Neha Gardner M.D. LAB BLOOD ADD-ON Final Resul t Performing Organization Address City/[facility]/ZIP Co de Phone Number [facility] [place] [address] [place] [address] * ALT (Alanine Aminotransferase) (07/06/2023 10:59 AM AIR CONDITIONING SERVICE TECHNICIAN) Only the most recent of2 resultswithin the time period is included. Pathologist [facility] Alanine Aminotransferase (ALT), S 14 7 - 55 U/L 07/06/2023 11:55 AM AIR CONDITIONING SERVICE TECHNICIAN DTL Blood (Blood, Venous) 07/06/2023 10:59 AM AIR CONDITIONING SERVICE TECHNICIAN 07/06/2023 11:37 AM AIR CONDITIONING SERVICE TECHNICIAN us Neha Gardner M.D. LAB BLOOD ADD-ON Final Resul t Performing Organization Address City/[facility] Co de Phone Number [facility] [place] [address] [place] [address], [facility] [address] [place] [address] * Pulmonary Function Tests (06/15/2023 10:28 AM AIR CONDITIONING SERVICE TECHNICIAN) Pathologist [facility] PostFVC 3.53 L 06/15/2023 12:58 PM AIR CONDITIONING SERVICE TECHNICIAN [facility] PostFEV1 2.25 L 06/15/2023 12:58 PM AIR CONDITIONING SERVICE TECHNICIAN [facility] FEV1/FVC POST 63.77 % 06/15/2023 12:58 PM AIR CONDITIONING SERVICE TECHNICIAN [facility] FEF 25-75 % POST 1.14 L/s 06/15/2023 12:58 PM AIR CONDITIONING SERVICE TECHNICIAN [place] SU[address] PEF POST 7.34 L/s 06/15/2023 12:58 PM AIR CONDITIONING SERVICE TECHNICIAN [place] SU[address] PIF POST 6.44 L/s 06/15/2023 12:58 PM AIR CONDITIONING SERVICE TECHNICIAN [facility] SU[facility] Post FEF50/FIF50 20.99 % 06/15/2023 12:58 PM AIR CONDITIONING SERVICE TECHNICIAN [facility] SU[facility] FET POST 11.81 sec 06/15/2023 12:58 PM AIR CONDITIONING SERVICE TECHNICIAN [facility] SU[facility] TLC 6.06 L 06/15/2023 12:58 PM AIR CONDITIONING SERVICE TECHNICIAN [facility] SU[facility] FRC Pre 3.84 L 06/15/2023 12:58 PM AIR CONDITIONING SERVICE TECHNICIAN [facility] SU[facility] RV 2.62 L 06/15/2023 12:58 PM AIR CONDITIONING SERVICE TECHNICIAN [facility] RV % TLC PRE 43.31 % 06/15/2023 12:58 PM [facility] SU[facility] DLCO 22.57 ml/(min*mm Hg) 06/15/2023 12:58 PM AIR CONDITIONING SERVICE TECHNICIAN [facility] SU[facility] DLCOc 21.97 ml/(min*mm Hg) 06/15/2023 12:58 PM [facility] SU[facility] HB 15.60 g(Hb)/dL 06/15/2023 12:58 PM AIR CONDITIONING SERVICE TECHNICIAN [facility] SU[facility] VA 5.98 L 06/15/2023 12:58 PM [facility] SU[facility] FVC 3.07 L 06/15/2023 12:58 PM [facility] SUITE FEV1 1.91 L 06/15/2023 12:58 PM [facility] SUITE FEV1/FVC 62.18 % 06/15/2023 12:58 PM [facility] SUITE DKR34-83% 0.91 L/s 06/15/2023 12:58 PM [facility] SU[facility] PEF PRE 6.25 L/s 06/15/2023 12:58 PM AIR CONDITIONING SERVICE TECHNICIAN [facility] SU[facility] PIF PRE 6.02 L/s 06/15/2023 12:58 PM AIR CONDITIONING SERVICE TECHNICIAN [facility] SU[facility] Pre FEF50/FIF50 17.83 % 06/15/2023 12:58 PM AIR CONDITIONING SERVICE TECHNICIAN [facility] SU[facility] FET PRE 12.37 sec 06/15/2023 12:58 PM [facility] SU[facility] SUBSTANCE POST Albuterol 06/15/2023 12:58 PM AIR CONDITIONING SERVICE TECHNICIAN [place] SUITE 06/15/2023 10:2 8 AM AIR CONDITIONING SERVICE TECHNICIAN Impressions [facility] - 06/15/2023 12:58 PM AIR CONDITIONING SERVICE TECHNICIAN The FEV1 is mildly reduced with the [...] Neha Gardner M.D. PFT ORDERABLES Final Result [facility] NA * Magnesium (06/15/2023 8:28 AM AIR CONDITIONING SERVICE TECHNICIAN) Only the most recent of4 resultswithin the time period is included. Magnesium, S 2.2 1.7 - 2.3 mg/dL 06/15/2023 9:38 AM AIR CONDITIONING SERVICE TECHNICIAN DTL Blood (Blood, Venous) 06/15/2023 8:28 AM AIR CONDITIONING SERVICE TECHNICIAN 06/15/2023 9:13 AM AIR CONDITIONING SERVICE TECHNICIAN us Neha Gardner M.D. LAB BLOOD ADD-ON Final Resul t [facility] [place] [address] [place] [address], [facility] DTL [facility] [address] [place] [address] * (ABNORMAL) Prothrombin Time (PT) (06/15/2023 8:27 AM AIR CONDITIONING SERVICE TECHNICIAN) Only the most recent of18 resultswithin the time period is included. Prothrombin Time, P 36.9(H) 9.4 - 12.5 sec 06/15/2023 9:17 AM AIR CONDITIONING SERVICE TECHNICIAN DTL INR 3.3 0.9 - 1.1 06/15/2023 9:17 AM AIR CONDITIONING SERVICE TECHNICIAN DTL Comment: ----ADDITIONAL INFORMATION---- Standard intensity warfarin therapeutic range: 2.0 to 3.0 High intensity warfarin therapeutic range: 2.5 to 3.5 Blood (Blood, Venous) 06/15/2023 8:27 AM AIR CONDITIONING SERVICE TECHNICIAN 06/15/2023 8:55 AM AIR CONDITIONING SERVICE TECHNICIAN us Neha Gardner M.D. LAB BLOOD ADD-ON Final Resul t [address] [address], [facility] DT[address] [address] * (TTE) 2D ECHO DOPPLER COLOR (05/23/2023 1:44 PM AIR CONDITIONING SERVICE TECHNICIAN) Pathologist [facility] Ejection Fraction 56 MC CV EIMS Sinus [...] EIMS TR Vmax 2.28 MC CV EIMS Estimated RA Pressure (Echo RAP) 5 MC CV EIMS RV Systolic Pressure (with Echo RAP) 26 MC CV EIMS IVC Diameter 13 MC CV EIMS AV mean gradient 6 MC CV EIMS Aortic valve area 2.28 MC CV EIMS Aortic Valve Dimensionless Index 0.5 MC CV EIMS Aortic Valve Systolic Peak Velocity 1.6 MC CV EIMS Anatomical Region Laterality Modality Echocardiography 05/23/2023 1:10 PM AIR CONDITIONING SERVICE TECHNICIAN Impressions 05/23/2023 11:12 PM AIR CONDITIONING SERVICE TECHNICIAN Status post coronary artery bypass graft(s). Frequent [...] the Order-Level Documents. Narrative 05/23/2023 11:12 PM AIR CONDITIONING SERVICE TECHNICIAN For the complete report, see the Order-Level Documents. Hemodynamics Heart Rate: 81 BPM Blood Pressure: 165 / 81 mmHg Final Impressions 1. Mildly enlarged left ventricular chamber size. Ejection fraction 56% with [id number] variability in setting of frequent ventricular ectopic [...] left ventricular chamber size. Ejection fraction 56%with [id number] variability in setting of frequent ventricular ectopicbeats. [...] B-Type Natriuretic Peptide (BNP) (05/23/2023 12:26 PM AIR CONDITIONING SERVICE TECHNICIAN) Only the most recent of5 resultswithin the time period is included. NT-Pro BNP 996(H) <=540 pg/mL 05/23/2023 1:34 PM AIR CONDITIONING SERVICE TECHNICIAN DTL Comment: NT-proBNP values less than 300 [...] failure. Blood (Blood, Venous) 05/23/2023 12:26 PM AIR CONDITIONING SERVICE TECHNICIAN 05/23/2023 12:59 PM AIR CONDITIONING SERVICE TECHNICIAN us Neha Gardner M.D. LAB BLOOD ADD-ON Final Resul t [facility] [address] [place] [address], [facility] DTL [facility] [address] [place] [address] * (ABNORMAL) Hemoglobin A1c (05/23/2023 12:26 PM AIR CONDITIONING SERVICE TECHNICIAN) Only the most recent of4 resultswithin the time period is included. Hemoglobin A1c, B 6.2(H) 4.0 - 5.6 % 05/23/2023 1:28 PM AIR CONDITIONING SERVICE TECHNICIAN DTL Comment: Hemoglobin A1c values of 5.7-6.4 percent indicate an increased risk for developing diabetes mellitus. In diabetic patients, HbA1c goals should be discussed with healthcare provider. Blood (Blood, Venous) 05/23/2023 12:26 PM AIR CONDITIONING SERVICE TECHNICIAN 05/23/2023 1:00 PM AIR CONDITIONING SERVICE TECHNICIAN us Neha Gardner M.D. LAB BLOOD ADD-ON Final Resul t [facility] [place] [address] [place] [address], [place] DTL [facility] [address] [place] [address] * (TTE) 2D ECHO DOPPLER COLOR AND CONTRAST (06/09/2022 4:08 PM AIR CONDITIONING SERVICE TECHNICIAN) Ejection Fraction 49 MC CV EIMS Sinus [...] EIMS TR Vmax 2.48 MC CV EIMS Estimated RA Pressure (Echo RAP) 5 MC CV EIMS RV Systolic Pressure (with Echo RAP) 30 MC CV EIMS AV mean gradient 6 MC CV EIMS Aortic valve area 2.51 MC CV EIMS Aortic Valve Dimensionless Index 0.61 MC CV EIMS MV mean gradient 2 MC CV EIMS Aortic Valve Systolic Peak Velocity 1.60 MC CV EIMS Anatomical Region Laterality Modality Echocardiography 06/09/2022 2:39 PM AIR CONDITIONING SERVICE TECHNICIAN Impressions 06/09/2022 4:12 PM AIR CONDITIONING SERVICE TECHNICIAN Status post coronary artery bypass graft(s). Frequent [...] the Order-Level Documents. Narrative 06/09/2022 4:12 PM AIR CONDITIONING SERVICE TECHNICIAN For the complete report, see the Order-Level [...] CBC with Differential, Blood (06/09/2022 11:37 AM AIR CONDITIONING SERVICE TECHNICIAN) Only the most recent of3 resultswithin the time period is included. Hemoglobin 15.3 13.2 - 16.6 g/dL 06/09/2022 12:24 PM AIR CONDITIONING SERVICE TECHNICIAN DTL Hematocrit 48.9(H) 38.3 - 48.6 % 06/09/2022 12:24 PM AIR CONDITIONING SERVICE TECHNICIAN DTL Erythrocytes 5.31 4.35 - 5.65 x10(12)/L 06/09/2022 12:24 PM AIR CONDITIONING SERVICE TECHNICIAN DTL MCV 92.1 78.2 - 97.9 fL 06/09/2022 12:24 PM AIR CONDITIONING SERVICE TECHNICIAN DTL RBC Distrib Width 14.2 11.8 - 14.5 % 06/09/2022 12:24 PM AIR CONDITIONING SERVICE TECHNICIAN DTL Platelet Count 201 135 - 317 x10(9)/L 06/09/2022 12:24 PM AIR CONDITIONING SERVICE TECHNICIAN DTL Leukocytes 5.9 3.4 - 9.6 x10(9)/L 06/09/2022 12:24 PM AIR CONDITIONING SERVICE TECHNICIAN DTL Neutrophils 3.20 1.56 - 6.45 x10(9)/L 06/09/2022 12:24 PM AIR CONDITIONING SERVICE TECHNICIAN DTL Lymphocytes 1.79 0.95 - 3.07 x10(9)/L 06/09/2022 12:24 PM AIR CONDITIONING SERVICE TECHNICIAN DTL Monocytes 0.62 0.26 - 0.81 x10(9)/L 06/09/2022 12:24 PM AIR CONDITIONING SERVICE TECHNICIAN DTL Eosinophils 0.24 0.03 - 0.48 x10(9)/L 06/09/2022 12:24 PM AIR CONDITIONING SERVICE TECHNICIAN DTL Basophils <0.03 0.01 - 0.08 x10(9)/L 06/09/2022 12:24 PM AIR CONDITIONING SERVICE TECHNICIAN DTL Blood (Blood, Venous) 06/09/2022 11:37 AM AIR CONDITIONING SERVICE TECHNICIAN 06/09/2022 12:15 PM AIR CONDITIONING SERVICE TECHNICIAN us Neha Gardner M.D. LAB BLOOD ADD-ON Final Resul t [facility] [place] [address] [place] [address], [facility] DTL [facility] [address] [place] [address] * US Abd Aortic Aneurysm Screen-Outside US Body (03/17/2022 8:10 AM CDT) Narrative [facility] - 05/10/2022 1:22 PM AIR CONDITIONING SERVICE TECHNICIAN This order has been created and auto-finalized to support the import of outside images. If available, original interpretation can be found on the Media Tab in Chart Review, in Document Viewer, or as an image in QREADS. If a re-interpretation or overread is required please follow defined workflow. us Provider Not In System IMG US PROCEDURES Final R esult [facility] NA * KNEE, LEFT 1 or 2V-Outside Skeletal Xray (11/24/2021 9:15 AM CDT) Only the most recent of3 resultswithin the time period is included. Narrative [facility] - 05/10/2022 1:22 PM AIR CONDITIONING SERVICE TECHNICIAN This order has been created and auto-finalized to support the import of outside images. If available, original interpretation can be found on the Media Tab in Chart Review, in Document Viewer, or as an image in QREADS. If a re-interpretation or overread is required please follow defined workflow. us Provider Not In System IMG DIAGNOSTIC IMAGING LA OCEDURES Final Result Performing Organization Address City/State/[facility] Co de Phone Number II NA * (ABNORMAL) SARS Coronavirus-2 RNA, V Symptomatic (07/05/2021 2:52 PM AIR CONDITIONING SERVICE TECHNICIAN) SARS-CoV-2 Specimen Source Swab, Nasopharynx 07/05/2021 11:04 PM AIR CONDITIONING SERVICE TECHNICIAN [facility] SARS CoV-2 RNA, TMA Detected(A) Undetected 07/05/2021 11:04 PM AIR CONDITIONING SERVICE TECHNICIAN [facility] Comment: SARS-CoV-2 RNA present. ----ADDITIONAL INFORMATION---- This molecular amplification test was performed using the Aptima SARS-CoV-2 assay ([employer] on the Pop Up Archive System under emergency use authorization (EUA) by the U.S. Food and Drug Administration. Fact sheets for this EUA assay can be found at the following links: For Healthcare Providers: https://www.fda.gov/media/896992/download For Patients: https://www.fda.gov/media/722914/download Varies (Nasopharynx) 07/05/2021 2:52 PM AIR CONDITIONING SERVICE TECHNICIAN 07/05/2021 5:13 PM AIR CONDITIONING SERVICE TECHNICIAN Tana Brunner M.D. LAB MICROBIOLOGY - GENERAL ORDERABLES Final Result [facility] [address] [place] [id number], [facility] [address] [address] * Interpretation of Outside MR Head (03/22/2021 [...] changes as noted. us Lauren Portillo M.D. Izaiah MRI PROCEDURES Final Res ult * Interpretation [...] DOPPLER COLOR AND CONTRAST (06/16/2020 1:43 PM AIR CONDITIONING SERVICE TECHNICIAN) Ejection Fraction 44 MC CV EIMS Wall [...] EIMS TR Vmax 2.50 MC CV EIMS Estimated RA Pressure (Echo RAP) 5 MC CV EIMS RV Systolic Pressure (with Echo RAP) 30 MC CV EIMS WMSI At Rest 1.75 MC CV EIMS WMSI At Peak Stress 1.75 MC CV EIMS Anatomical Region Laterality Modality Echocardiography 06/16/2020 12:2 7 PM AIR CONDITIONING SERVICE TECHNICIAN Impressions 06/16/2020 2:06 PM AIR CONDITIONING SERVICE TECHNICIAN Intravenous Lumason ultrasound enhancement agent(s) administered to [...] the Order-Level Documents. Narrative 06/16/2020 2:06 PM AIR CONDITIONING SERVICE TECHNICIAN For the complete report, see the Order-Level [...] (Thyroid-Stimulating Hormone - Sensitive) (06/16/2020 8:44 AM AIR CONDITIONING SERVICE TECHNICIAN) Only the most recent of3 resultswithin the time period is included. TSH, Sensitive 1.7 0.3 - 4.2 mIU/L 06/16/2020 10:03 AM AIR CONDITIONING SERVICE TECHNICIAN DTL Blood (Blood, Venous) 06/16/2020 8:44 AM AIR CONDITIONING SERVICE TECHNICIAN 06/16/2020 9:06 AM AIR CONDITIONING SERVICE TECHNICIAN us Neha Gardner M.D. LAB BLOOD ADD-ON Final Resul t Performing Organization Address [facility] Co de Phone Number [facility] [place] [address] [place] [address], [place] DTL [facility] [address] [place] [address] * NM Cardiac Blood Pool MUGA (07/08/2019 11:12 AM AIR CONDITIONING SERVICE TECHNICIAN) 07/08/2019 9:10 AM AIR CONDITIONING SERVICE TECHNICIAN Narrative CV MERGE - 07/08/2019 11:45 AM AIR CONDITIONING SERVICE TECHNICIAN See PDF For Result Procedure Note Sly Glass M.D. - 07/08/2019 See PDF For Result us Neha Gardner M.D. IMG NM PROCEDURES Final Resu lt Performing Organization Address [facility] Co de Phone Number CV MERGE NA * CARDIOPULMONARY (VO2) EXERCISE TEST (01/21/2019 2:10 PM CDT) 01/21/2019 1:14 PM CDT Narrative MEEK CV MERGE - 01/21/2019 4:06 PM CDT See PDF For Result Procedure Note Deepa Abrams M.D. - 01/21/2019 See PDF For Result us Neha Gardner M.D. CV STRESS PROCEDURES Final R esult Performing Organization Address [facility] Co de Phone Number MC CV MERGE NA * Pulmonary Function Tests (01/21/2019 9:02 AM CDT) [facility] SINGLE BREATH POST 21.13 ml/(min*mm Hg) 01/21/2019 1:48 PM CDT [facility] SU[facility] DLCOC SINGLE BREATH POST 20.32 ml/(min*mm Hg) 01/21/2019 1:48 PM CDT [facility] SU[facility] HB 16.10 g(Hb)/dL 01/21/2019 1:48 PM CDT [facility] SU[facility] Post VA SINGLE BREATH 5.54 L 01/21/2019 1:48 PM CDT [facility] SU[facility] VC MAX POST 3.26 L 01/21/2019 1:48 PM CDT [facility] SUITE PostFVC 3.25 L 01/21/2019 1:48 PM CDT [facility] SU[facility] PostFEV1 2.11 L 01/21/2019 1:48 PM CDT [facility] SU[facility] FEV1/FVC POST 64.80 % 01/21/2019 1:48 PM CDT [facility] SU[facility] FEF 25-75 % POST 1.09 L/s 01/21/2019 1:48 PM CDT [facility] SU[facility] PEF POST 7.51 L/s 01/21/2019 1:48 PM CDT [facility] SU[facility] FET POST 10.17 sec 01/21/2019 1:48 PM CDT [facility] SU[facility] VC MAX PRE 3.54 L 01/21/2019 1:48 PM CDT [facility] SU[facility] FVC 3.54 L 01/21/2019 1:48 PM CDT [facility] SU[facility] FEV1 2.34 L 01/21/2019 1:48 PM CDT [facility] SU[facility] FEV1/FVC 65.94 % 01/21/2019 1:48 PM CDT [facility] SU[facility] APU85-60% 1.31 L/s 01/21/2019 1:48 PM CDT [facility] SU[facility] PEF PRE 6.61 L/s 01/21/2019 1:48 PM CDT [facility] SU[facility] FET PRE 9.96 sec 01/21/2019 1:48 PM CDT [facility] SU[facility] MVV 71.93 L/min 01/21/2019 1:48 PM CDT [facility] SU[facility] SUBSTANCE POST NaN 01/21/2019 1:48 PM CDT [facility] SU[facility] DOSE POST NaN 01/21/2019 1:48 PM CDT [facility] SU[facility] % PRED VC MAX 101.21 % 01/21/2019 1:48 PM CDT [facility] SU[facility] FVC% 101.21 % 01/21/2019 1:48 PM CDT [facility] SU[facility] FEV1% 87.82 % 01/21/2019 1:48 PM CDT [facility] SUITE % PRED FEV1/FVC 86.46 % 01/21/2019 1:48 PM CDT [facility] SUITE % PRED FEF 25-75% 64.20 % 01/21/2019 1:48 PM CDT [facility] SUITE % PRED PEF 93.24 % 01/21/2019 1:48 PM CDT [facility] SU[facility] PRED VC MAX 3.50 L 01/21/2019 1:48 PM CDT [facility] PRED FVC 3.50 L 01/21/2019 1:48 PM CDT [facility] PRED FEV 1 2.66 L 01/21/2019 1:48 PM CDT [facility] PRED FEV1/FVC 76.27 % 01/21/2019 1:48 PM CDT [facility] PRED FEF 25-75% 2.03 L/s 01/21/2019 1:48 PM CDT [facility] SU[facility] PRED PEF 7.09 L/s 01/21/2019 1:48 PM CDT [facility] 01/21/2019 9:02 AM CDT us Neha Gardner M.D. PFT ORDERABLES Final Result Performing Organization Address City/[facility]/ZIP Co de Phone Number [facility] NA * PET Cardiac Perfusion Rest and Stress (01/07/2019 3:14 PM CDT) 01/07/2019 2:55 PM CDT Narrative CV MERGE - 01/07/2019 4:53 PM CDT See PDF For Result us Neha Gardner M.D. IMG NM PROCEDURES Final Resu lt CV MERGE NA * CT Cardiac Angiogram with Coronary Arteries with IV Contrast (01/07/2019 10:43 AM CDT) Anatomical Region Laterality Modality Cardiac, Cardiovascular RST LOS, Thoracic ARZ LOS, Cardiovascular FLA LOS N/A Computed Tomography 01/07/2019 2:08 PM CDT Impressions 01/07/2019 2:55 PM CDT 1. No evidence of sternal dehiscence or mediastinitis. 2. Patent coronary artery bypass grafts. 3. 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 [place] CORONARY ARTERIES: Mild calcification of the left [...] graft to right coronary artery: Widely patent. [place] CORONARY ARTERIES: Mild calcification of the left [...] Patent coronary artery bypass grafts. 3. 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 LAB BLOOD ADD-ON Final Resul t Performing Organization Address City/[facility] Co de Phone Number [facility] [place] [address] * (TTE) 2D ECHO DOPPLER COLOR AND CONTRAST (12/30/2018 8:04 PM CDT) Ejection Fraction 42 MC CV EIMS Sinus [...] EIMS TR Vmax 2.50 MC CV EIMS Estimated RA Pressure (Echo RAP) 5 MC CV EIMS RV Systolic Pressure (with Echo RAP) 30 MC CV EIMS AV mean gradient [...] Panel with Creatinine Shereen (06/12/2017 6:50 AM AIR CONDITIONING SERVICE TECHNICIAN) Only the most recent of15 resultswithin the time period is included. Chloride, S 90(L) 98 - 107 MMOL/L [facility] [place] BUN (Blood Urea Nitrogen), S 39(H) 8 - 24 MG/DL [facility] [place] HX Bicarbonate, P/S 31(H) 22 - 29 MMOL/L [facility] [place] Creatinine, Shereen 2.5(H) 0.7 - 1.2 MG/DL [facility] [place] Sodium, P 134(L) 135 - 145 MMOL/L [facility] [place] Potassium, P 3.6 3.6 - 5.2 MMOL/L [facility] [place] Glucose, S 137 70 - 140 MG/DL [facility] [place] Anion Gap 13 7 - 15 [facility] 06/12/2017 6:50 AM AIR CONDITIONING SERVICE TECHNICIAN 06/12/2017 6:50 AM AIR CONDITIONING SERVICE TECHNICIAN Elvin Moreno M.D. LAB BLOOD ADD-ON Final Resu lt Performing Organization Address City/[facility]/ZIP Co de Phone Number [facility] [place] [address] * Glucose, POCT (06/10/2017 5:36 PM AIR CONDITIONING SERVICE TECHNICIAN) Only the most recent of44 resultswithin the time period is included. Last Intake 3-4 hours [facility] Glucose, POCT, B 106 70 - 140 MG/DL [facility] [place] Sample Site, Blood Gas, POCT Capillary [facility] [place] 06/10/2017 5:36 PM AIR CONDITIONING SERVICE TECHNICIAN 06/10/2017 5:36 PM AIR CONDITIONING SERVICE TECHNICIAN Historical Provider LAB POCT ORDERABLES-MANUAL F inal Result Performing Organization Address City/[facility]/ZIP Co de Phone Number [facility] [place] [address] * DX Chest Portable 1 View (06/10/2017 9:22 AM AIR CONDITIONING SERVICE TECHNICIAN) Only the most recent of9 resultswithin the time period is included. Anatomical Region Laterality Modality Chest N/A Radiographic Ayana ging 06/10/2017 9:22 AM AIR CONDITIONING SERVICE TECHNICIAN Impressions 06/10/2017 9:45 AM AIR CONDITIONING SERVICE TECHNICIAN Improved aeration of the lungs since 06/09/17 with decreased left basilar atelectasis. Right basilar chest tube. No pneumothorax. Mild right basilar atelectasis. Left PICC tip at the SVC/RA junction. Sternotomy. Mild pulmonary vascular congestion. Electronically signed by: Neha Coronel MD [phone] 10-Jun-2017 09:45 Narrative 06/10/2017 9:45 AM AIR CONDITIONING SERVICE TECHNICIAN 10-Jun-2017 09:22:00 Exam: Portable-Chest Indications: S/P CVS [...] congestion. Electronically signed by: Neha Coronel MD [phone] 10-Jun-2017 09:45 Maribell Roberts APRN C.N.P., M.S.N. IMG DIAGNOS TIC IMAGING PROCEDURES Final Result * DX Abdomen Portable Anterior Posterior 1 View (06/09/2017 6:25 PM AIR CONDITIONING SERVICE TECHNICIAN) Anatomical Region Laterality Modality Abdomen N/A Radiographic Ayana ging 06/09/2017 6:25 PM AIR CONDITIONING SERVICE TECHNICIAN Impressions 06/09/2017 8:19 PM AIR CONDITIONING SERVICE TECHNICIAN Nonobstructive bowel gas pattern with gas seen in the distal colon and rectum. 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 Electronically signed by: Kita Marin MD [phone] 09-Jun-2017 18:58 I have reviewed the films/images and agree with the above interpretation. Electronically signed by: Wesley Brock M.D. [phone] 09-Jun-2017 20:19 Narrative 06/09/2017 8:19 PM AIR CONDITIONING SERVICE TECHNICIAN 09-Jun-2017 18:25:00 Exam: Portable-Abdomen Indications: R/O ileus [...] SIjoints. Electronically signed by: Kita Marin MD [phone] 09-Jun-2017 18:58 I have reviewed the films/images and agree with the above interpretation. Electronically signed by: Wesley Brock M.D. [phone] 09-Jun-2017 20:19 Maribell Roberts APRN, C.N.P., M.S.N. IMG DIAGNOS TIC IMAGING PROCEDURES Final Result * Phosphorus Inorganic (06/09/2017 6:18 AM AIR CONDITIONING SERVICE TECHNICIAN) Phosphorus (Inorganic), S 4.1 2.5 - 4.5 MG/DL [facility] [place] Comment:Drawn From PICC 06/09/2017 6:18 AM AIR CONDITIONING SERVICE TECHNICIAN 06/09/2017 6:18 AM AIR CONDITIONING SERVICE TECHNICIAN Narrative [facility] [place] - 06/09/2017 8:57 AM AIR CONDITIONING SERVICE TECHNICIAN Drawn From PICC lEvin Moreno M.D. LAB BLOOD ADD-ON Final Resu lt [facility] [place] [address] * (ABNORMAL) Calcium, Total (06/09/2017 6:18 AM AIR CONDITIONING SERVICE TECHNICIAN) Calcium, Total, S 8.3(L) 8.9 - 10.1 MG/DL [facility] [place] Comment:Drawn From PICC 06/09/2017 6:18 AM AIR CONDITIONING SERVICE TECHNICIAN 06/09/2017 6:18 AM AIR CONDITIONING SERVICE TECHNICIAN Narrative [facility] [place] - 06/09/2017 8:57 AM AIR CONDITIONING SERVICE TECHNICIAN Drawn From PICC us Elvin Moreno M.D. LAB BLOOD ADD-ON Final Resu lt Performing Organization Address City/[facility]/ZIP Co de Phone Number [facility] [place] [address] * Sodium, Random, Urine (06/08/2017 11:13 PM AIR CONDITIONING SERVICE TECHNICIAN) Sodium, Random, U 32 Interpret with other; clinical data. MMOL/L [facility] [place] 06/08/2017 11:1 3 PM AIR CONDITIONING SERVICE TECHNICIAN 06/08/2017 11:13 PM AIR CONDITIONING SERVICE TECHNICIAN Getachew Dunaway APRN.N.P., M.S.N. LAB URINE O RDERABLES Final Result Performing Organization Address [facility] Co de Phone Number [facility] [place] [address] * (ABNORMAL) Microscopic Manual (06/08/2017 11:13 PM AIR CONDITIONING SERVICE TECHNICIAN) Dysmorphic RBC <25 <25 % [facility] [place] WBC 1-3 1-3 (Males); 1-10 (Females) /HPF [facility] [place] Microscopy Abnormal [facility] Blood 21-30(A) <3 /HPF [facility] Casts, Hyaline 1-3 /LPF [facility] [place] 06/08/2017 11:1 3 PM AIR CONDITIONING SERVICE TECHNICIAN 06/08/2017 11:13 PM AIR CONDITIONING SERVICE TECHNICIAN Maribell Roberts APRN, C.N.P., M.S.N. LAB URINE O RDERABLES Final Result Performing Organization Address [facility] Co de Phone Number [facility] [place] [address] * Creatinine, Random, Urine (06/08/2017 11:13 PM AIR CONDITIONING SERVICE TECHNICIAN) Creatinine, Random, U 52 Used to normalize other; values. MG/DL [facility] [place] 06/08/2017 11:1 3 PM AIR CONDITIONING SERVICE TECHNICIAN 06/08/2017 11:13 PM AIR CONDITIONING SERVICE TECHNICIAN Manpreet Dunaway APRNNUmberto., M.S.N. LAB URINE O RDERABLES Final Result Performing Organization Address [facility] Co de Phone Number [facility] [place] [address] * Chloride, Random, Urine (06/08/2017 11:13 PM AIR CONDITIONING SERVICE TECHNICIAN) Chloride, Random, U 31 Interpret with other; clinical data. MMOL/L [facility] [place] 06/08/2017 11:1 3 PM AIR CONDITIONING SERVICE TECHNICIAN 06/08/2017 11:13 PM AIR CONDITIONING SERVICE TECHNICIAN Getachew Dunaway APRN.N.P., M.S.N. LAB URINE O RDERABLES Final Result Performing Organization Address [facility] de Phone Number [facility] [place] [address] * DX Chest Portable Post PICC Placement 1 View (06/08/2017 6:35 PM AIR CONDITIONING SERVICE TECHNICIAN) Anatomical Region Laterality Modality Chest N/A Radiographic Ayana ging 06/08/2017 6:35 PM AIR CONDITIONING SERVICE TECHNICIAN Impressions 06/08/2017 8:47 PM AIR CONDITIONING SERVICE TECHNICIAN Left PICC with tip in the upper SVC. Electronically signed by: Nereyda Hilton MD [phone] 08-Jun-2017 18:39 I have reviewed the films/images and agree with the above interpretation. Electronically signed by: Wesley Brock M.D. [phone] 08-Jun-2017 20:47 Narrative 06/08/2017 8:47 PM AIR CONDITIONING SERVICE TECHNICIAN 08-Jun-2017 18:35:00 Exam: Portable-Chest PICC Indications: Left - PICC Placement ORIGINAL REPORT - 08-Jun-2017 18:39:00 EXAM: Chest; 1 view Procedure Note Wesley Brock M.B., Ch.B. - 09/26/2017 08-Jun-2017 18:35:00 Exam: Portable-Chest PICC Indications: Left - PICC Placement ORIGINAL REPORT - 08-Jun-2017 18:39:00 EXAM: Chest; 1 view IMPRESSION: Left PICC with tip in the upper SVC. Electronically signed by: Nereyda Hilton MD [phone] 08-Jun-2017 18:39 I have reviewed the films/images and agree with the above interpretation. Electronically signed by: Wesley Brock M.D. [phone] 08-Jun-2017 20:47 Sherly Hay R.N. IMG DIAGNOSTIC IMAGING LA OCEDURES Final Result * Cortrosyn Stim/Antoni (06/07/2017 9:02 AM AIR CONDITIONING SERVICE TECHNICIAN) [facility] Cortisol, 60 Min 48 Not applicable MCG/DL [facility] [place] Cortisol, Baseline 21 Not applicable MCG/DL [facility] [place] Cortisol, 30 Min 42 Not applicable MCG/DL [facility] [place] 06/07/2017 9:02 AM AIR CONDITIONING SERVICE TECHNICIAN 06/07/2017 9:02 AM AIR CONDITIONING SERVICE TECHNICIAN Elvin Moreno M.D. LAB BLOOD NON ADD-ON Final Result [facility] [place] [address] [place] [address], [facility] * (ABNORMAL) Blood Gas with Coox, Arterial (06/07/2017 5:47 AM AIR CONDITIONING SERVICE TECHNICIAN) Only the most recent of11 resultswithin the time period is included. Arterial Sample Site Art Line [facility] [place] FIO2 0.53 .21=AIR [place] [employer] [facility] pH 7.46(H) 7.35 - 7.45 PH [facility] [place] Base Excess 5(H) -2 - 2 MMOL/L [facility] [place] O2Hb 97.4 94.0 - 98.0 % [facility] [place] COHb 1.1 <3.0 % [facility] Device NC [facility] Spont. breaths/min 18 [facility] [place] pO2 121(H) 80 - 100 MM HG [facility] [place] pCO2 40 35 - 45 MM HG [facility] [place] HCO3 29(H) 22 - 26 MMOL/L [facility] [place] Hb 9.7(L) 13.5 - 17.5 G/DL [facility] [place] MetHb <1.0 <1.6 % [facility] CtO2 13.5(L) 21.0 - 23.0 VOL % [facility] [place] 06/07/2017 5:47 AM AIR CONDITIONING SERVICE TECHNICIAN 06/07/2017 5:47 AM AIR CONDITIONING SERVICE TECHNICIAN Elvin Moreno M.D. LAB BLOOD NON ADD-ON Final Result Performing Organization Address [facility]/ZIP Co de Phone Number [facility] [place] [address] * ABORh, RBC (06/06/2017 8:22 AM AIR CONDITIONING SERVICE TECHNICIAN) Only the most recent of3 resultswithin the time period is included. HXABO/RH BLOOD TYPE O Pos [facility] [place] 06/06/2017 8:22 AM AIR CONDITIONING SERVICE TECHNICIAN Historical Provider LAB BLOOD BANK TEST ORDERABL ES Final Result Performing Organization Address [facility] Co de Phone Number [facility] [place] [address] * Prepare Red Blood Cells (06/06/2017 8:22 AM AIR CONDITIONING SERVICE TECHNICIAN) HXRBC # UNITS TRANSFUSED 1 [facility] [place] HXRBC UNIT INFO RBC [facility] [place] Comment: Unit Blood Type O Pos Unit Number [id number] Component Type Red Blood Cells - -3 Leukoreduced Issue Date/Time [id number] 06/06/2017 8:22 AM AIR CONDITIONING SERVICE TECHNICIAN us Historical Provider BLOOD BANK PRODUCT ORDERABLE S Final Result Performing Organization Address City/[facility] Co de Phone Number [facility] [place] [address] * Antibody Screen, RBC (06/06/2017 8:22 AM AIR CONDITIONING SERVICE TECHNICIAN) Only the most recent of2 resultswithin the time period is included. [facility] Antibody Screen Negative [facility] [place] 06/06/2017 8:22 AM AIR CONDITIONING SERVICE TECHNICIAN [facility] Provider LAB BLOOD BANK TEST ORDERABL ES Final Result Performing Organization Address [facility] Co de Phone Number [facility] [place] [address] * Lactate (06/05/2017 4:51 PM AIR CONDITIONING SERVICE TECHNICIAN) Only the most recent of7 resultswithin the time period is included. [facility] Lactate, P 0.8 0.6 - 2.3 MMOL/L [facility] [place] 06/05/2017 4:51 PM AIR CONDITIONING SERVICE TECHNICIAN 06/05/2017 4:51 PM AIR CONDITIONING SERVICE TECHNICIAN Pete Baker P.A.-C. LAB BLOOD NON ADD-ON Fi nal Result Performing Organization Address City/[facility] Co de Phone Number [facility] [place] [address] * (ABNORMAL) ABG and Lytes, POCT (06/05/2017 2:51 PM AIR CONDITIONING SERVICE TECHNICIAN) [facility] Arterial Sample Site Artline [facility] [place] Comment: ADDITIONAL INFORMATION Performed at the Point of Care pH 7.41 7.35 - 7.45 [facility] [place] Comment: ADDITIONAL INFORMATION Performed at the Point of Care Base Excess 3(H) -2 - 2 MMOL/L [facility] [place] Comment: ADDITIONAL INFORMATION Performed at the Point of Care HCO3 27(H) 21 - 25 MMOL/L [facility] [place] Comment: ADDITIONAL INFORMATION Performed at the Point of Care Sodium, B 138 135 - 145 MMOL/L [facility] [place] Comment: ADDITIONAL INFORMATION Performed at the Point of Care Potassium, B 4.5 3.6 - 5.2 MMOL/L [facility] [place] Comment: ADDITIONAL INFORMATION Performed at the Point of Care Calcium, Ionized, B 4.70 4.65 - 5.30 MG/DL [facility] [place] Comment: ADDITIONAL INFORMATION Performed at the Point of Care pH 7.41 7.35 - 7.45 [facility] [place] Comment: ADDITIONAL INFORMATION Performed at the Point of Care Glucose, POCT, B 127 70 - 140 MG/DL [facility] [place] Comment: ADDITIONAL INFORMATION Performed at the Point of Care Hematocrit, POCT, B 23.0(L) 38.8 - 50.0 % [facility] [place] Comment: ADDITIONAL INFORMATION Performed at the Point of Care pCO2 43 35 - 45 MM HG [facility] [place] Comment: ADDITIONAL INFORMATION Performed at the Point of Care pO2 60(L) 70 - 100 MM HG [facility] [place] Comment: ADDITIONAL INFORMATION Performed at the Point of Care 06/05/2017 2:51 PM AIR CONDITIONING SERVICE TECHNICIAN 06/05/2017 2:51 PM AIR CONDITIONING SERVICE TECHNICIAN [facility] Provider LAB BLOOD NON ADD-ON Final R esult [facility] [place] [address] * (ABNORMAL) Electrolyte (Chem 4) Panel (06/05/2017 12:35 PM AIR CONDITIONING SERVICE TECHNICIAN) Sodium, S 140 135 - 145 MMOL/L [facility] [place] Potassium, S 4.9 3.6 - 5.2 MMOL/L [facility] [place] Creatinine 2.1(H) 0.8 - 1.3 MG/DL [facility] [place] BUN (Blood Urea Nitrogen), S 27(H) 8 - 24 MG/DL [facility] [place] Anion Gap 16(H) 7 - 15 [facility] Glucose, S 114 70 - 140 MG/DL [facility] [place] Chloride, S 99 98 - 107 MMOL/L [facility] [place] HX Bicarbonate, P/S 25 22 - 29 MMOL/L [facility] [place] 06/05/2017 12:3 5 PM AIR CONDITIONING SERVICE TECHNICIAN 06/05/2017 12:35 PM AIR CONDITIONING SERVICE TECHNICIAN us Elvin Moreno M.D. LAB BLOOD ADD-ON Final Resu lt Performing Organization Address [facility] Co de Phone Number [facility] [facility] [place] [address] * APTT (Activated Partial Thromboplastin Time) (06/05/2017 3:49 AM AIR CONDITIONING SERVICE TECHNICIAN) Only the most recent of5 resultswithin the time period is included. APTT, P 27 25 - 37 SEC [facility] 06/05/2017 3:49 AM AIR CONDITIONING SERVICE TECHNICIAN 06/05/2017 3:49 AM AIR CONDITIONING SERVICE TECHNICIAN us Getachew Potts APRN.N.P. LAB BLOOD ADD-ON Final Result Performing Organization Address [facility] de Phone Number [facility] [place] [address] * (ABNORMAL) Fibrinogen (06/04/2017 11:07 PM AIR CONDITIONING SERVICE TECHNICIAN) Only the most recent of4 resultswithin the time period is included. Fibrinogen, P 198(L) 200 - 393 MG/DL [facility] [place] 06/04/2017 11:0 7 PM AIR CONDITIONING SERVICE TECHNICIAN 06/04/2017 11:07 PM AIR CONDITIONING SERVICE TECHNICIAN us Hugo Aj P.A.-C. LAB BLOOD ADD-ON Final Result Performing Organization Address [facility] de Phone Number [facility] [place] [address] * ACT (Activated Clotting Time), POCT (06/04/2017 11:06 PM AIR CONDITIONING SERVICE TECHNICIAN) Only the most recent of8 resultswithin the time period is included. Activated Clotting Time, POCT [phone] SEC [facility] [place] 06/04/2017 11:0 6 PM AIR CONDITIONING SERVICE TECHNICIAN 06/04/2017 11:06 PM AIR CONDITIONING SERVICE TECHNICIAN Historical Provider LAB POCT ORDERABLES - DEVICE Final Result Performing Organization Address [facility]/ZIP Co de Phone Number [facility] [place] [address] * Potassium, Blood (06/04/2017 8:19 PM AIR CONDITIONING SERVICE TECHNICIAN) Only the most recent of4 resultswithin the time period is included. Potassium, B 4.8 3.6 - 5.2 MMOL/L [facility] [place] Comment:[place]rawn in [place] 06/04/2017 8:19 PM AIR CONDITIONING SERVICE TECHNICIAN 06/04/2017 8:19 PM AIR CONDITIONING SERVICE TECHNICIAN Narrative [facility] [place] - 06/04/2017 8:22 PM AIR CONDITIONING SERVICE TECHNICIAN Drawn in [place] Elvin Moreno M.D. LAB BLOOD NON ADD-ON Final Result Performing Organization Address [facility] Co de Phone Number [facility] [place] [address] * (ABNORMAL) Glucose, Whole Blood (06/04/2017 8:19 PM AIR CONDITIONING SERVICE TECHNICIAN) Only the most recent of4 resultswithin the time period is included. Glucose, S 168(H) 70 - 140 MG/DL [facility] [place] Comment:[place] 06/04/2017 8:19 PM AIR CONDITIONING SERVICE TECHNICIAN 06/04/2017 8:19 PM AIR CONDITIONING SERVICE TECHNICIAN Narrative [facility] [place] - 06/04/2017 8:22 PM AIR CONDITIONING SERVICE TECHNICIAN Drawn in [place] us Elvin Moreno M.D. LAB BLOOD ADD-ON Final Resu lt Performing Organization Address City/[facility] Co de Phone Number [facility] [place] [address] * Sodium (06/04/2017 8:19 PM AIR CONDITIONING SERVICE TECHNICIAN) Only the most recent of9 resultswithin the time period is included. Sodium, B 141 135 - 145 MMOL/L [facility] [place] Comment:[place]wn [place] 06/04/2017 8:19 PM AIR CONDITIONING SERVICE TECHNICIAN 06/04/2017 8:19 PM AIR CONDITIONING SERVICE TECHNICIAN Narrative [facility] [place] - 06/04/2017 8:23 PM AIR CONDITIONING SERVICE TECHNICIAN Drawn in [place] us Elvin Moreno M.D. LAB BLOOD ADD-ON Final Resu lt Performing Organization Address City/[facility]/ZIP Co de Phone Number [facility] [place] [address] * Calcium, Ionized (06/04/2017 8:19 PM AIR CONDITIONING SERVICE TECHNICIAN) Only the most recent of5 resultswithin the time period is included. [facility] Calcium, Ionized, B 5.08 4.65 - 5.30 MG/DL [facility] [place] Comment:[place] 06/04/2017 8:19 PM AIR CONDITIONING SERVICE TECHNICIAN 06/04/2017 8:19 PM AIR CONDITIONING SERVICE TECHNICIAN Narrative [facility] [place] - 06/04/2017 8:22 PM AIR CONDITIONING SERVICE TECHNICIAN Drawn in [place] us Elvin Moreno M.D. LAB BLOOD NON ADD-ON Final Result Performing Organization Address [facility]/ZIP Co de Phone Number [facility] [place] [address] * (ABNORMAL) Hemoglobin (HGB), POCT (06/04/2017 8:17 PM AIR CONDITIONING SERVICE TECHNICIAN) Only the most recent of2 resultswithin the time period is included. [facility] Hemoglobin, B 12.5(L) 13.5 - 17.5 G/DL [facility] [place] 06/04/2017 8:17 PM AIR CONDITIONING SERVICE TECHNICIAN 06/04/2017 8:17 PM AIR CONDITIONING SERVICE TECHNICIAN Historical Provider LAB POCT ORDERABLES - DEVICE Final Result Performing Organization Address [facility] Co de Phone Number [facility] [place] [address] * (ABNORMAL) Platelet Count (06/04/2017 12:37 PM AIR CONDITIONING SERVICE TECHNICIAN) HX Platelet Count 133(L) 150 - 450 X10(9)/L [facility] [place] Comment:[place]wn [place] 06/04/2017 12:3 7 PM AIR CONDITIONING SERVICE TECHNICIAN 06/04/2017 12:37 PM AIR CONDITIONING SERVICE TECHNICIAN Narrative [facility] [place] - 06/04/2017 12:47 PM AIR CONDITIONING SERVICE TECHNICIAN Drawn in [place] [facility] Provider LAB BLOOD ADD-ON Final Resul t Performing Organization Address [facility] de Phone Number [facility] [place] [address] * HX intra-Op Auto Tx (06/04/2017 10:45 AM AIR CONDITIONING SERVICE TECHNICIAN) HXRBC # UNITS TRANSFUSED 1.25 [facility] [place] HXRBC UNIT INFO RBC [facility] [place] Comment: Component Type Intraoperative Salvaged RBC Unit Number =[id number] Issue Date/Time [id number] Component Type Intraoperative Salvaged RBC Unit Number =[id number] Issue Date/Time [id number] 06/04/2017 10:4 5 AM AIR CONDITIONING SERVICE TECHNICIAN Historical Provider LAB HISTORICAL ORDERS Final Result Performing Organization Address [facility] de Phone Number [facility] [place] [address] * ANESTHESIOLOGY IMAGE EXAM (06/04/2017 7:50 AM AIR CONDITIONING SERVICE TECHNICIAN) 06/04/2017 7:49 AM AIR CONDITIONING SERVICE TECHNICIAN Narrative [facility] - 06/04/2017 8:55 AM AIR CONDITIONING SERVICE TECHNICIAN This order has been created and auto-finalized to support the import of images acquired without order. The clinical documentation to support these images can be found on the encounter that produced images. us Provider Not In System IMG NON RAD IMAGING PROCE DURES Final Result Performing Organization Address [facility] de Phone Number [facility] NA * Echo Transesophageal (JOSTIN) (06/04/2017 7:37 AM AIR CONDITIONING SERVICE TECHNICIAN) Anatomical Region Laterality Modality Echocardiography 06/04/2017 7:37 AM AIR CONDITIONING SERVICE TECHNICIAN Historical Provider CV ECHO PROCEDURES Final Res ult * Echocardiology Image Exam (06/04/2017 6:45 AM AIR CONDITIONING SERVICE TECHNICIAN) Only the most recent of4 resultswithin the time period is included. Anatomical Region Laterality Modality Other 06/04/2017 6:45 AM AIR CONDITIONING SERVICE TECHNICIAN Addenda Addendum by ProviderLizzie M.D. on 06/04/2017 6:45 AM AIR CONDITIONING SERVICE TECHNICIAN ECHO^^^MCR INTRAOP 06/04/2017 06:45:08 INTRAOP us Historical Provider IMG NON RAD IMAGING PROCEDUR ES Final Result * US Lower Extremity Veins (06/01/2017 12:09 PM AIR CONDITIONING SERVICE TECHNICIAN) Anatomical Region Laterality Modality Vascular, Lower Extremity Ultras ound 06/01/2017 12:0 9 PM AIR CONDITIONING SERVICE TECHNICIAN Impressions 06/01/2017 12:14 PM AIR CONDITIONING SERVICE TECHNICIAN Both great saphenous veins are suitable in [...] [id number] 01-Jun-2017 12:14 Narrative 06/01/2017 12:14 PM AIR CONDITIONING SERVICE TECHNICIAN 01-Jun-2017 12:09:00 Exam: B US Lower Extremity [...] Upper Extremity Arteries Graft (06/01/2017 12:08 PM AIR CONDITIONING SERVICE TECHNICIAN) Anatomical Region Laterality Modality Ultrasound 06/01/2017 12:0 8 PM AIR CONDITIONING SERVICE TECHNICIAN Impressions 06/01/2017 12:14 PM AIR CONDITIONING SERVICE TECHNICIAN 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 The radial arteries should NOT be used for graft purposes. Electronically signed by: Bev Avendano MD. [id number] 01-Jun-2017 12:14 Narrative 06/01/2017 12:14 PM AIR CONDITIONING SERVICE TECHNICIAN 01-Jun-2017 12:08:00 Exam: B US Upper Extrem [...] BUN (Blood Urea Nitrogen) (06/01/2017 10:37 AM AIR CONDITIONING SERVICE TECHNICIAN) Only the most recent of3 resultswithin the time period is included. BUN (Blood Urea Nitrogen), S 21 8 - 24 MG/DL [facility] [place] 06/01/2017 10:3 7 AM AIR CONDITIONING SERVICE TECHNICIAN 06/01/2017 10:37 AM AIR CONDITIONING SERVICE TECHNICIAN Kirsty Pennington P.A.-C. LAB BLOOD ADD-ON Final R esult Performing Organization Address City/[facility]/ZIP Co de Phone Number [facility] [place] [address] * (ABNORMAL) Potassium (06/01/2017 10:37 AM AIR CONDITIONING SERVICE TECHNICIAN) Only the most recent of5 resultswithin the time period is included. Potassium, S 5.3(H) 3.6 - 5.2 MMOL/L [facility] [place] 06/01/2017 10:3 7 AM AIR CONDITIONING SERVICE TECHNICIAN 06/01/2017 10:37 AM AIR CONDITIONING SERVICE TECHNICIAN Kirsty Pennington P.A.-C. LAB BLOOD ADD-ON Final R esult Performing Organization Address City/[facility]/ZIP Co de Phone Number [facility] [place] [address] * Creatinine with Estimated GFR (MDRD) (06/01/2017 10:37 AM AIR CONDITIONING SERVICE TECHNICIAN) Only the most recent of5 resultswithin the time period is included. Creatinine 1.3 0.8 - 1.3 MG/DL [facility] [place] 06/01/2017 10:3 7 AM AIR CONDITIONING SERVICE TECHNICIAN 06/01/2017 10:37 AM AIR CONDITIONING SERVICE TECHNICIAN us Kirsty Pennington P.A.-C. LAB BLOOD ADD-ON Final R esult [facility] [place] [address] [place], [place] [address] * Cardiology Image Exam (05/08/2017 11:15 AM AIR CONDITIONING SERVICE TECHNICIAN) Only the most recent of2 resultswithin the time period is included. Anatomical Region Laterality Modality Other 05/08/2017 11:1 5 AM AIR CONDITIONING SERVICE TECHNICIAN Addenda Addendum by ProviderLizzie M.D. on 05/08/2017 11:15 AM AIR CONDITIONING SERVICE TECHNICIAN CARD^^^MCR CATH 05/08/2017 11:15:04 CATH Historical Provider IMG NON RAD IMAGING PROCEDUR ES Final Result * Cardiac Catheterization (05/08/2017 11:08 AM AIR CONDITIONING SERVICE TECHNICIAN) Anatomical Region Laterality Modality Other 05/08/2017 11:0 8 AM AIR CONDITIONING SERVICE TECHNICIAN Historical Provider CV CARDIAC CATH PROCEDURES F inal Result * (ABNORMAL) Coenzyme Q10, Total, P (05/08/2017 7:52 AM AIR CONDITIONING SERVICE TECHNICIAN) Interpretation . [facility] [place] Comment: In this sample, the total coenzyme Q10 concentration was elevated. This finding is likely related to supplementation. Other possible causes include cardiovascular diseases or hypercholesterolemia. ADDITIONAL INFORMATION High-Performance Liquid Chromatography (HPLC) with Electrochemical Detection This test was developed and its performance characteristics determined by [facility] in a manner consistent with CLIA requirements. This test has not been cleared or approved by the U.S. Food and Drug Administration. HX CoQ10 Total-[place] 2901(H) 433 - 1532 MCG/L [facility] [place] Reviewed by . [facility] Comment:Deuce Gaitan 05/08/2017 7:52 AM AIR CONDITIONING SERVICE TECHNICIAN 05/08/2017 7:52 AM AIR CONDITIONING SERVICE TECHNICIAN Neha Gardner M.D. LAB BLOOD ADD-ON Final Resul t [facility] [place] [address] * 25-Hydroxyvitamin D2 and D3 (05/08/2017 7:52 AM AIR CONDITIONING SERVICE TECHNICIAN) 25-Hydroxy D2 <4.0 NG/ML [facility] 25-Hydroxy D3 44 NG/ML [facility] 25-Hydroxy D Total 44 SeeComment NG/ML [facility] [place] Comment: REFERENCE VALUE 25-HYDROXY D TOTAL (D2+D3) Optimum levels in the healthy population are 20-50, patients with bone disease may benefit from higher levels within this range. ADDITIONAL INFORMATION This test was developed and its performance characteristics determined by [facility] in a manner consistent with CLIA requirements. This test has not been cleared or approved by the U.S. Food and Drug Administration. 05/08/2017 7:52 AM AIR CONDITIONING SERVICE TECHNICIAN 05/08/2017 7:52 AM AIR CONDITIONING SERVICE TECHNICIAN us Neha Gardner M.D. LAB BLOOD ADD-ON Final Resul t [facility] [place] [address] * Alkaline Phosphatase (05/08/2017 7:52 AM AIR CONDITIONING SERVICE TECHNICIAN) Alkaline Phosphatase, S 67 45 - 115 U/L [facility] [place] 05/08/2017 7:52 AM AIR CONDITIONING SERVICE TECHNICIAN 05/08/2017 7:52 AM AIR CONDITIONING SERVICE TECHNICIAN us Neha Gardner M.D. LAB BLOOD ADD-ON Final Resul t [facility] [place] [address] * Lipase (05/08/2017 7:52 AM AIR CONDITIONING SERVICE TECHNICIAN) Lipase, S 49 10 - 73 U/L [facility] 05/08/2017 7:52 AM AIR CONDITIONING SERVICE TECHNICIAN 05/08/2017 7:52 AM AIR CONDITIONING SERVICE TECHNICIAN us Neha Gardner M.D. LAB BLOOD ADD-ON Final Resul t Performing Organization Address [facility] de Phone Number [facility] [place] [address] * Bilirubin, Total (05/08/2017 7:52 AM AIR CONDITIONING SERVICE TECHNICIAN) Bilirubin, Total, S 1.0 <=1.2 MG/DL [facility] [place] 05/08/2017 7:52 AM AIR CONDITIONING SERVICE TECHNICIAN 05/08/2017 7:52 AM AIR CONDITIONING SERVICE TECHNICIAN us eNha Gardner M.D. LAB BLOOD ADD-ON Final Resul t Performing Organization Address [facility] de Phone Number [facility] [place] [address] * Glucose, Fasting (05/04/2017 8:26 AM CDT) Only the most recent of2 resultswithin the time period is included. Last Intake 14 HR [facility] Glucose, P 89 70 - 100 MG/DL [facility] [place] 05/04/2017 8:26 AM CDT 05/04/2017 8:26 AM CDT us Neha Gardner M.D. LAB BLOOD NON ADD-ON Final R esult Performing Organization Address [facility] de Phone Number [facility] [place] [address] * Echo Transthoracic (TTE) (12/13/2016 10:34 AM CDT) Anatomical Region Laterality Modality Echocardiography 12/13/2016 10:3 4 AM CDT us Neha Gardner M.D. CV ECHO PROCEDURES Final Res ult * DX Wrist 3+ Views (05/29/2016 8:22 AM AIR CONDITIONING SERVICE TECHNICIAN) Only the most recent of4 resultswithin the time period is included. Anatomical Region Laterality Modality Radiographic Ayana ging 05/29/2016 8:22 AM AIR CONDITIONING SERVICE TECHNICIAN Impressions 05/29/2016 8:33 AM AIR CONDITIONING SERVICE TECHNICIAN Since 03/02/2016, interval removal of the percutaneous [...] swelling. Electronically signed by: Ashli Grayson MD [id number] 29-May-2016 08:33 Narrative 05/29/2016 8:33 AM AIR CONDITIONING SERVICE TECHNICIAN 29-May-2016 08:22:00 Exam: R Wrist 3vw AP/Lat [...] by: Ashli Grayson MD [id number] 29-May-2016 08:33 Dulce [place] IM DIAGNOSTIC IMAGING PROC EDURES Final Result * DX Hand 2 Views (05/29/2016 8:22 AM AIR CONDITIONING SERVICE TECHNICIAN) Anatomical Region Laterality Modality Upper Extremity, Hand N/A Radiograph ic Imaging 05/29/2016 8:22 AM AIR CONDITIONING SERVICE TECHNICIAN Impressions 05/29/2016 8:33 AM AIR CONDITIONING SERVICE TECHNICIAN Since 03/02/2016, interval removal of the percutaneous [...] [id number] 29-May-2016 08:33 Narrative 05/29/2016 8:33 AM AIR CONDITIONING SERVICE TECHNICIAN 29-May-2016 08:22:00 Exam: R Hand 2vw Indications: [...] signed by: Ashli Grayson MD 29-May-2016 08:33 us Dulce Angeles [facility] DIAGNOSTIC IMAGING PROC EDURES Final Result * DX Finger 2+ Views (05/29/2016 8:22 AM AIR CONDITIONING SERVICE TECHNICIAN) Only the most recent of4 resultswithin the time period is included. Anatomical Region Laterality Modality Upper Extremity, Fingers N/A Radiogr aphic Imaging 05/29/2016 8:22 AM AIR CONDITIONING SERVICE TECHNICIAN Impressions 05/29/2016 8:33 AM AIR CONDITIONING SERVICE TECHNICIAN Since 03/02/2016, interval removal of the percutaneous [...] swelling. Electronically signed by: Ashli Grayson MD [id number] 29-May-2016 08:33 Narrative 05/29/2016 8:33 AM AIR CONDITIONING SERVICE TECHNICIAN 29-May-2016 08:22:00 Exam: R Thumb 3vw AP/Lat/Obl [...] swelling. Electronically signed by: Ashli Grayson MD 8-3 29-May-2016 08:33 Dul[facility] [place] IMG DIAGNOSTIC IMAGING PROC EDURES Final Result * Cardiac Catheterization (05/02/2016 10:50 AM CDT) Anatomical Region Laterality Modality Other 05/02/2016 10:5 0 AM CDT Historical Provider CV CARDIAC CATH PROCEDURES F inal Result * NM Cardiac Perfusion Rest and Stress SPECT (03/21/2016 12:07 PM CDT) 03/21/2016 12:0 7 PM CDT [facility] RADIOLOGY SYSTEM - 03/21/2016 1:46 PM CDT (Please [...] Presented: About Your Nuclear Cardiology Stress Test ([id number]); Patient verbalized and demonstrated understanding.; Education Time in minutes: 15; MONITORING PERSONNEL: Primary Monitor: Sangeeta Alcaraz Naturalization Examiner: Augustus Menard REFERRING PHYSICIAN: ANDREEA GARDNER III INTERPRETING PHYSICIAN: Amador Funez/Vinh [place] Electronically signed by: Bev Funez MD. [id number] 21-Mar-2016 13:46 [facility] RADIOLOGY SYSTEM - 03/21/2016 1:46 PM CDT [...] ;Presented: About Your Nuclear Cardiology Stress Test ([id number]); Patientverbalized and demonstrated understanding.; Education Time in minutes: 15; MONITORING PERSONNEL: Primary Monitor: Sangeeta Alcaraz Naturalization Examiner:Augustus Menard REFERRING PHYSICIAN: ANDREEA GARDNER III INTERPRETING PHYSICIAN: Amador Funez/Vinh [place] Electronically signed by: Bev Funez MD. [id number] 21-Mar-2016 13:46 Neha Gardner M.D. IMG NM PROCEDURES Final Resu lt [facility] [address] [place] [address] * Sestamibi Scan (03/21/2016 9:39 AM CDT) [...] to the tip of the distal ulna. Asveu-bro-szrnv fixation across the comminuted fracture of the 5th metacarpal. Fracture line remains visible. Healing fracture of the base of the 3rd proximal phalanx and the 1st proximal phalanx. 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 Scattered degenerative changes throughout the hand and wrist, most marked at the 1st CMC joint where it is advanced. Soft tissue swelling. Electronically signed by: Ashli Grayson MD 802-Mar-2016 09:58 Narrative 03/02/2016 9:58 AM CDT 02-Mar-2016 [...] adjacent to the tip of the distal ulna.Fekgo-qgl-drpiv fixation across the comminuted fracture of the 5thmetacarpal. Fracture line remains visible. Healing fracture of the base ofthe 3rd proximal phalanx and the 1st proximal phalanx. Chondrocalcinosisin the wrist. Scattered degenerative changes throughout the hand andwrist, most marked at the 1st CMC joint where it is advanced. Soft tissueswelling. Electronically signed by: Ashli Grayson MD 8-02-Mar-2016 09:58 us José Antonio Kauffman Jr., P.A.-C. IMG DIAGNOSTIC I MAGING PROCEDURES Final Result * Echo Transthoracic (TTE) (02/25/2016 12:10 PM CDT) Anatomical Region Laterality Modality Echocardiography 02/25/2016 12:1 0 PM CDT Nickolas Blake M.D., Ph.D. CV ECHO [...] Fixation-distal radius fracture; Right Open Reduction Internal Pjjshtnm-rrqlafl-tcsniu fracture (first finger), [facility] 88 ORIGINAL REPORT - 14-Jan-2016 16:13:00 EXAM: [...] Reduction InternalFixation-distal radius fracture; Right Open Reduction QtzhfiavSqdbzohg-ffjfrye-evbmno fracture (first finger), [facility] 88 ORIGINAL REPORT - 14-Jan-2016 16:13:00 EXAM: [...] hand. Electronically signed by: Manpreet Ovalles MD [phone] 14-Jan-2016 00:15 I have reviewed the films/images [...] hand. Electronically signed by: Manpreet Ovalles MD [phone] 14-Jan-2016 00:15 I have reviewed the films/images and agree with the above interpretation. Electronically signed by: Linda Al MD. [id number] 14-Jan-2016 09:15 Ho Ferreira M.D. IMG CT [...] B 0 0 - 22 MM/1 H [facility] [place] 10/11/2012 9:50 AM CDT 10/11/2012 9:50 AM CDT us Neha Gardner M.D. LAB BLOOD ADD-ON Final Resul t Performing Organization Address City/[facility]/ZIP Co de Phone Number [facility] [place] [address] * LIZZIE (Antinuclear Antibodies) (10/11/2012 9:50 AM CDT) Antinuclear Ab, S 0.3 <=1.0 (Negative) U [facility] [place] 10/11/2012 9:50 AM CDT 10/11/2012 9:50 AM CDT us Neha Gardner M.D. 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 [...] Obstructive 01/07/2019 Cardiomyopathy Ischemic 01/21/2019 Failure Heart ([facility]) 01/21/2019 Chronic Kidney Disease Stage 3 Glomerular Filtration Rate 30 To 59 01/21/2019 Hyperlipidemia 01/21/2019 Aneurysm Coronary Artery 01/21/2019 Coronary Artery Disease With Stable Angina 01/21/2019 Coronary Artery Disease (Unspecified) 01/21/2019 Cardiomyopathy Ischemic 01/21/2019 Pain Chest 01/21/2019 Dyspnea On Exertion 01/21/2019 Snoring 01/21/2019 Apnea Sleep Obstructive 01/21/2019 Failure Heart ([facility]) 07/08/2019 Beat Premature Ventricular 07/08/2019 Cardiomyopathy Ischemic 07/08/2019 Coronary Artery Disease With Stable Angina 07/08/2019 Aneurysm Coronary Artery 07/08/2019 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 ([facility]) 07/08/2019 Hyperlipidemia 07/08/2019 Cardiomyopathy Ischemic 07/08/2019 Failure Heart ([facility]) 07/08/2019 Chronic Kidney Disease Stage 3 Glomerular Filtration Rate 30 To 59 07/08/2019 Hyperlipidemia 07/08/2019 Aneurysm Coronary Artery 07/08/2019 Coronary Artery Disease With Stable Angina 07/08/2019 Cardiomyopathy Ischemic 07/08/2019 Failure Heart ([facility]) 07/08/2019 Chronic Kidney Disease Stage 3 Glomerular Filtration Rate 30 To 59 07/08/2019 Hyperlipidemia 07/08/2019 Aneurysm Coronary Artery 07/08/2019 Coronary Artery Disease With Stable Angina 07/08/2019 Cardiomyopathy Ischemic 07/09/2019 Failure Heart ([facility]) 07/21/2019 Beat Premature Ventricular 07/21/2019 Cardiomyopathy Ischemic 07/21/2019 Beat Premature Ventricular 06/14/2020 Cardiomyopathy Ischemic 06/14/2020 Coronary Artery Disease With Stable Angina 06/14/2020 Hyperlipidemia 06/14/2020 Cardiomyopathy Ischemic 06/16/2020 Coronary Artery Disease With Stable Angina 06/16/2020 Aneurysm Coronary Artery 06/16/2020 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 Glomerular Filtration Rate (GFR) 30 To 44 ([facility]) 06/16/2020 Ectopy Ventricular 06/16/2020 Beat Premature Ventricular 06/16/2020 Cardiomyopathy Ischemic 06/16/2020 Coronary Artery Disease With Stable Angina 06/16/2020 Hyperlipidemia 06/16/2020 Beat Premature Ventricular 06/16/2020 Cardiomyopathy Ischemic 06/16/2020 Coronary Artery Disease With Stable Angina 06/16/2020 Hyperlipidemia 06/16/2020 Stroke ([facility]) 01/07/2021 Stroke ([facility]) 01/19/2021 Stroke ([facility]) 03/21/2021 Stroke Cerebrovascular Accident Personal History 03/22/2021 Stroke Cerebrovascular Accident Personal History 03/22/2021 Cerebrovascular Disease 03/22/2021 Spells Neurological ([facility]) 03/22/2021 Contact With And (Suspected) Exposure To COVID-19 07/05/2021 COVID-19 Infection 07/06/2021 COVID-19 Infection 07/07/2021 COVID-19 Infection 08/01/2021 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 04/04/2022 Abdominal Aortic Aneurysm Without Rupture Unspecified 04/04/2022 Aneurysm Coronary Artery 04/04/2022 Cardiomyopathy Ischemic 05/05/2022 Coronary Artery Disease With Stable Angina 05/05/2022 Aneurysm Coronary Artery 05/05/2022 Ectopy Ventricular 05/05/2022 Hyperlipidemia 05/05/2022 Cardiomyopathy Ischemic 06/09/2022 Coronary Artery Disease With Stable Angina 06/09/2022 Aneurysm Coronary Artery 06/09/2022 Ectopy Ventricular 06/09/2022 Hyperlipidemia 06/09/2022 Cardiomyopathy Ischemic 06/09/2022 Coronary Artery Disease With Stable Angina 06/09/2022 Aneurysm Coronary Artery 06/09/2022 Ectopy Ventricular 06/09/2022 Hyperlipidemia 06/09/2022 Cardiomyopathy Ischemic 06/09/2022 Coronary Artery Disease With Stable Angina 06/09/2022 Aneurysm Coronary Artery 06/09/2022 Ectopy Ventricular 06/09/2022 Hyperlipidemia 06/09/2022 Coronary Artery Disease With Stable Angina 06/23/2022 Ectopy Ventricular 06/23/2022 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 Failure (HCC) 06/23/2022 Hyperlipidemia 06/23/2022 Coronary Artery Disease With Stable Angina 08/05/2022 Coronary Artery Disease With Stable Angina 08/07/2022 Coronary Artery Disease With Stable Angina 05/23/2023 Ectopy Ventricular 05/23/2023 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 Failure (HCC) 05/23/2023 Hyperlipidemia 05/23/2023 Coronary Artery Disease With Stable Angina 05/23/2023 Ectopy Ventricular 05/23/2023 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 Failure (HCC) 05/23/2023 Hyperlipidemia 05/23/2023 Coronary Artery Disease With Stable Angina 05/23/2023 Ectopy Ventricular 05/23/2023 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 Failure (HCC) 05/23/2023 Hyperlipidemia 05/23/2023 Ectopy Ventricular 05/29/2023 Coronary Artery Disease With Stable Angina 05/30/2023 Ectopy Ventricular 05/30/2023 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 Failure (HCC) 05/30/2023 Hyperlipidemia 05/30/2023 Coronary Artery Disease With Stable Angina 06/15/2023 Ectopy Ventricular 06/15/2023 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 Failure (HCC) 06/15/2023 Hyperlipidemia 06/15/2023 Coronary Artery Disease With Stable Angina 06/15/2023 Ectopy Ventricular 06/15/2023 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 Failure (HCC) 06/15/2023 Hyperlipidemia 06/15/2023 Ectopy Ventricular 06/15/2023 Cardiomyopathy Ischemic 06/15/2023 Coronary Artery Disease With Stable Angina 06/15/2023 Aneurysm Coronary Artery 06/15/2023 Hyperlipidemia 06/15/2023 Ectopy Ventricular 07/06/2023 Cardiomyopathy Ischemic 07/06/2023 Coronary Artery Disease With Stable Angina 07/06/2023 Ectopy Ventricular 07/06/2023 Cardiomyopathy Ischemic 07/06/2023 Coronary Artery Disease With Stable Angina 07/06/2023 Ectopy Ventricular 07/06/2023 Cardiomyopathy Ischemic 07/06/2023 Coronary Artery Disease With Stable Angina 07/06/2023 Ectopy Ventricular 08/09/2023 Cardiomyopathy Ischemic 08/09/2023 Coronary Artery Disease With Stable Angina 08/09/2023 Tachycardia Ventricular Nonsustained (HCC) 08/09/2023 Coronary Artery Disease With Stable Angina 09/18/2023 Cerebral Infarction Embolism Of Bilateral Cerebellar [...] 01/07/2024 Coronary Artery Disease With Stable Angina 01/07/2024 Ectopy Ventricular 01/15/2024 Ectopy Ventricular 01/15/2024 Tachycardia Ventricular Nonsustained (HCC) 01/15/2024 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 Glomerular Filtration Rate (GFR) 30 To 44 (HCC) 01/15/2024 Tachycardia Ventricular Nonsustained (HCC) 03/18/2024 Coronary Artery Disease With Stable Angina 03/18/2024 Hyperlipidemia 03/18/2024 Tachycardia Ventricular Nonsustained (HCC) 03/18/2024 Tachycardia Ventricular Nonsustained (HCC) 03/18/2024 Tachycardia Ventricular Nonsustained (HCC) 03/18/2024 Tachycardia Ventricular Nonsustained (HCC) 03/18/2024 Coronary Artery Disease With Stable Angina 03/18/2024 Cardiomyopathy Ischemic 03/18/2024 Hypertensive Heart And [...] 06/16/2024 Coronary Artery Disease With Stable Angina 06/16/2024 Aneurysm Coronary Artery 06/16/2024 Ectopy Ventricular 11/19/2024 Presence Cardioverter- Defibrillator (ICD And AICD) 11/19/2024 Coronary Artery Disease With Stable Angina 11/19/2024 Tachycardia Ventricular Nonsustained (HCC) 11/19/2024 Hyperlipidemia 11/19/2024 Hypertensive Heart And Chronic Kidney Disease Without Heart Failure With Stage 1 To 4 Chronic Kidney Disease Or Unspecified Chronic Kidney Disease 11/19/2024 Obstructive Sleep Apnea Adult 11/19/2024 Aneurysm Coronary Artery 11/19/2024 Presence Cardioverter- Defibrillator (ICD And AICD) 11/19/2024 Beat Premature Ventricular 11/19/2024 Presence Cardioverter- Defibrillator (ICD And AICD) 11/19/2024 Beat Premature Ventricular 11/19/2024 Shortness Of Breath 11/19/2024 Tachycardia Ventricular Nonsustained (HCC) 11/19/2024 Coronary Artery Disease With Stable Angina 11/19/2024 Chronic Kidney Disease (CKD), Stage 3b Glomerular Filtration Rate (GFR) 30 To 44 (HCC) 11/19/2024 Atrial Fibrillation Longstanding Persistent (HCC) 11/19/2024 Infarction Cerebral (HCC) 12/08/2024 Dizziness And Giddiness 12/08/2024 Presence Cardioverter- Defibrillator (ICD And AICD) 12/08/2024 Shortness Of Breath 12/08/2024 Tachycardia Ventricular Nonsustained (HCC) 12/08/2024 Atrial Fibrillation Longstanding Persistent (HCC) 12/08/2024 Shortness Of Breath 12/08/2024 Shortness Of Breath 12/08/2024 Incontinence Urinary 12/22/2024 Incontinence Urinary 12/25/2024 Incontinence Urinary 12/29/2024 Incontinence Urinary 12/29/2024 Shortness Of Breath 01/16/2025 Chronic Obstructive Pulmonary Disease (HCC) 01/16/2025 Coronary Artery Disease With Stable Angina 03/19/2024 Cardiomyopathy Ischemic 03/19/2024 Chronic Kidney Disease (CKD), Stage 3b Glomerular Filtration Rate (GFR) 30 To 44 ([facility]) 03/19/2024 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 ([facility]) 03/19/2024 Hyperlipidemia 03/19/2024 Stroke Cerebrovascular Accident Personal History 03/19/2024 Hypertensive Heart And Chronic Kidney Disease Without Heart Failure With Stage 1 To 4 Chronic Kidney Disease Or Unspecified Chronic Kidney Disease 03/19/2024 Obstructive Sleep Apnea Adult 03/19/2024 Patent Foramen Ovale (HCC) 03/19/2024 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
--- OUTSIDE RECORDS SUMMARY | 2025-02-20 12:18 | XMS_ITS | Encounter Summary ---
Author Organization [facility] Address [address] [place] [id number] Care Team Providers Care Overlock Sleeve Setter Name Role Phone Elsewhere, Pcp Primary Care Provider Unavailabl e Encounter Details Date Type Department Care Team (Late st Contact Info) Description 12/30/2024 Clinical Communication Department of Urology in [place], [place] [address] [place] [phone] Kalin Dumont M.D. [address] [place] [phone] Social History Tobacco Use Types Packs/Day Years [...] e alcohol) Not on a regular basis [facility] Utilities Answer Date Recorded In the [...] your living situation today? I have a [facility] place to live 11/13/2024 Education Answer Date Recorded What is the highest level of school you have completed or the highest degree you have received? 12th grade 03/18/2021 Sex and Gender Information Value Date Recorded Sex Assigned at Male 03/18/2021 9:25 AM CDT Legal Sex Male 6:03 AM DIRECTOR OF PROCUREMENT Gender Identity Male 12/20/2017 11:12 AM CDT Sexual Orientation Straight 12/20/2017 11 :12 AM CDT documented as of this encounter Miscellaneous Notes * Telephone Encounter - Kay Putnam - 12/30/2024 10:53 AM CDT ----- Message from Nurse Almonte sent at 12/29/2024 12:51 PM CDT ----- Please schedule patient for UDS, flow study, and office visit with Dr. Dumont as first available. Thanks! documented in this encounter Plan of Treatment Upcoming Encounters Date Type Department Care Team (Latest Contact Info) Description 03/23/2025 7:30 AM CDT Clinical Communication Virtual Review in [address] [phone] 03/26/2025 12:00 PM CDT Appointment Department of Laboratory Medicine and Pathology, [facility], in [address] [phone] Emiliana Carrasco M.D. [address] [place] [phone] 03/26/2025 2:30 PM CDT Procedure visit Department of Urology in [place], [place] [address] [place] [address] Emiliana Carrasco M.D. [address] [place] [phone] 03/27/2025 8:00 AM CDT Office Visit Department of Urology in [place], [place] [address] [place] [address] Kalin Dumont M.D. [address] [place] [phone] documented as of this encounter Visit Diagnoses Not on filedocumented in this encounter Care Teams Overlock Sleeve Setter Relationship Specialty Start Date End Date Elsewhere, Pcp PCP - General Internal Medicine 06/12/24 documented as of this encounter
--- OUTSIDE RECORDS SUMMARY | 2025-02-20 12:18 | XMS_ITS | Encounter Summary ---
Author Organization [facility] Address [address] [place] [address] Care Team Providers Care Billing Services Manager Name Role Phone Elsewhere, Pcp Primary Care Provider Unavailabl e Encounter Details Date Type Department Care Team (Late st Contact Info) Description 12/25/2024 Orders Only Department of Urology in [place], [place] [address] [place] [phone] [facility], Provider, Incontinence Urinary Social History Tobacco Use Types Packs/Day Years [...] e alcohol) Not on a regular basis [facility] Utilities Answer Date Recorded In the past [...] your living situation today? I have a [facility] place to live 11/13/2024 Education Answer Date Recorded What is the highest level of school you have completed or the highest degree you have received? 12th grade 03/18/2021 Sex and Gender Information Value Date Recorded Sex Assigned at Male 03/18/2021 9:25 AM CDT Legal Sex Male 6:03 AM CREAM DUMPER Gender Identity Male 12/20/2017 11:12 AM CDT Sexual Orientation Straight 12/20/2017 11 :12 AM CDT documented as of this encounter Plan of Treatment Upcoming Encounters Date Type Department Care Team (Latest Contact Info) Description 03/23/2025 7:30 AM CDT Clinical Communication Virtual Review in [place], [place] [address] [place] [phone] 03/26/2025 12:00 PM CDT Appointment Department of Laboratory Medicine and Pathology, [facility], in [place], [place] [address] [place] [phone] Emiliana Carrasco M.D. [address] [place] [phone] 03/26/2025 2:30 PM CDT Procedure visit Department of Urology in [place], [place] [address] [place] [phone] Emiliana Carrasco M.D. [address] [place] [phone] 03/27/2025 8:00 AM CDT Office Visit Department of Urology in [place], [place] [address] [place] [phone] Kalin Dumont M.D. [address] [place] [address] documented as of this encounter Results * (ABNORMAL) Urinalysis, with Microscopic: Urine, Midstream (12/29/2024 9:00 AM CDT) Source Urine, Urine, Midstream 12/29/2024 9:50 AM [...] Dumont M.D. LAB URINE ORDERABLES Final Result [facility] [address] [place] [address], [facility] 200 [place] [address] documented in this encounter Visit Diagnoses Diagnosis Incontinence Urinary documented in this encounter Care Teams Billing Services Manager Relationship Specialty Start Date End Date Elsewhere, Pcp PCP - General Internal Medicine 06/12/24 documented as of this encounter
[2025-02-20 12:19] LABS: Blood Urea Nitrogen* 25 mg/dL (7-30); Creatinine* 1.9 mg/dL (0.5-1.5); Est. Creatinine Clearance* 29.47; Estimated Glomerular Filt Rate 35 ml/min
[2025-02-20 12:20] LABS: Alanine Aminotransferase* 14 U/L (4-50); Alkaline Phosphatase* 67 U/L (40-150); Anion Gap 8 mEq/L (7-15); Aspartate Amino Transferase* 25 U/L (12-35); Bilirubin Direct* 0.3 mg/dL (0.0-0.5); Bilirubin Total* 0.8 mg/dL (0.1-1.5); Calcium* 9.3 mg/dL (8.4-10.6); Carbon Dioxide* 27 mmol/L (20-32); Glucose* 90 mg/dL (60-115); Total Protein* 7.3 g/dL (6.0-8.3)
[2025-02-20 12:21] LABS: Troponin, Point-of-Care* 0.01 ng/ml (0.01-0.04)
[2025-02-20 12:22] LABS: Creatinine, Point-of-Care* 2.3 mg/dl (0.6-1.3)
[2025-02-20 12:34] LABS: INR 1.22 (0.91-1.10); Prothrombin Time 16.3 Seconds
[2025-02-20 12:37] LABS: NT Pro B Type NatriureticPept* 961 pg/mL (See Note)
[2025-02-20] MEDS: 0.9 % SODIUM CHLORIDE 500 ML 500 ML IV (12:39)
== END 2025-02-20 13:43 | disposition home or self-care (01) ==
PROVIDERS: Emergency Provider Family Medicine; PCP Physician Assistant Medical
DX: G43.109 Migraine with aura, not intractable, without status migrainosus (principal); Z86.73 Personal history of transient ischemic attack (TIA), and cerebral infarction without residual deficits
CPT/HCPCS: 36415; 70450; 70496; 70498; 80048; 80076; 82565; 83880; 84484; 85025; 85610; 85730; 93005; 94761; 96374; 96375; 99285; 99291; G0427; J1200; J1720; J7030; Q9967

== ENCOUNTER 2025-03-13 17:31 | Emergency (ER) | payer OTHER, SELFPAY ==
--- OUTSIDE RECORDS SUMMARY | 2025-02-04 07:40 | XMS_ITS | Encounter Summary ---
Author Organization [facility] Address [address] [place] [address] Care Team Providers Care Push Bench Operator Helper Name Role Phone Elsewhere, Pcp Primary Care Provider Unavailabl e Encounter Details Date Type Department Care Team (Latest Contact Info) Description 02/04/2025 7:40 AM CDT - 02/04/2025 11:59 PM CDT Hospital Encounter Department of Cardiovascular Diseases in [place], [place] [address] [place] [address] Hilario Redman M.D. [address] [place] [address] Discharge Disposition: Home or Self Care Social [...] e alcohol) Not on a regular basis [facility] Utilities Answer Date Recorded In the past 12 months has [employer], gas, oil, or water [employer] threatened to shut off services in your [...] your living situation today? I have a [facility] place to live 11/13/2024 Education Answer Date Recorded What is the highest level of school you have completed or the highest degree you have received? 12th grade 03/18/2021 Sex and Gender Information Value Date Recorded Sex Assigned at Male 03/18/2021 9:25 AM CDT Legal Sex Male 6:03 AM [employer] Gender Identity Male 12/20/2017 11:12 AM CDT [...] AM CDT Clinical Communication Virtual Review in [place], [place] 200 [place] [address] 03/26/2025 12:00 PM CDT Appointment Department of Laboratory Medicine and Pathology, [facility], in [place], [place] [address] [place] [phone] Emiliana Carrasco M.D. [address] [place] [phone] 03/26/2025 2:30 PM CDT Procedure visit Department of Urology in [place], [place] [address] [place] [phone] Emiliana Carrasco M.D. [address] [place] [phone] 03/27/2025 8:00 AM CDT Office Visit Department of Urology in [place], [place] [address] [place] [address] Kalin Dumont M.D. [address] [place] [address] documented as of this encounter Procedures Procedure Name Priority Date/Time Associated Diagnosis Comments INTERFACED REMOTE DEVICE CHECK Routine 02/04/2025 7:40 AM CDT documented in this encounter Results * CAR CARDIAC DEVICE INTERROGATION (02/04/2025 7:40 AM CDT) Date Time Interrogation Session [id number] [facility] Type Interrogation Session Remote Scheduled [facility] Implantable Pulse Generator [employer] [facility] Implantable Pulse Generator Type Defibrillator [facility] Implantable Pulse Generator Model D533 [facility] Implantable Pulse Generator Serial Number [id number] [facility] Implantable Pulse Generator Implant Date 20240319 [facility] Battery Remaining Percentage 100.00 % [facility] Battery Remaining Longevity 156.0 mo [facility] Battery Status Beginning of Service [facility] Capacitor Charge Time 10.000 [facility] Chandrakant Statistic RA Percent Paced 87.00 [facility] Chandrakant Statistic RV Percent Paced 6.00 [facility] Atrial Tachy Statistic AT/AF [place] Percent 0.00 [facility] Lead Channel Sensing Intrinsic Amplitude 4.600 [facility] Lead Channel Setting Sensing Sensitivity 0.25 [facility] Lead Channel Impedance Value 570 [facility] Lead Channel Measurements Date and Time 20250203 [facility] Lead Channel Setting Pacing Amplitude 2.000 [facility] Lead Channel Setting Pacing Pulse Width 0.4 [facility] Lead Channel Sensing Intrinsic Amplitude 6.800 [facility] Lead Channel Setting Sensing Sensitivity 0.60 [facility] Lead Channel Impedance Value 350 [facility] Lead Channel Pacing Threshold Amplitude 0.600 [facility] Lead Channel Pacing Threshold Pulse Width 0.4 [facility] Lead Channel Measurements Date and Time 20250202 [facility] Lead Channel Setting Pacing Amplitude 2.000 [facility] Lead Channel Setting Pacing Pulse Width 0.4 [facility] Chandrakant Setting Mode (NBG Code) [...] 2 [facility] Implantable Lead [employer] [facility] Implantable Lead Model 7841-52 [facility] Implantable Lead Location Right [employer] [facility] Implantable Lead Connection Status Connected [facility] Implantable Lead Serial Number [id number] [facility] Implantable Lead Implant Date 20240319 [facility] Implantable Lead Polarity Type Bipolar Lead [facility] Implantable Lead Special Function Lead length: 52.00 cm [facility] Implantable Lead [employer] [facility] Implantable Lead Model 0672-59 [facility] Implantable Lead Location Right Ventricle [facility] Implantable Lead Connection Status Connected [facility] Implantable Lead Serial Number [id number] [facility] Implantable Lead Implant Date [...] on filedocumented in this encounter Care Teams Push Bench Operator Helper Relationship Specialty Start Date End Date Elsewhere, Pcp PCP - General Internal Medicine 06/12/24 documented as of this encounter
--- OUTSIDE RECORDS SUMMARY | 2025-03-13 17:32 | XMS_ITS | Clinical Summary ---
Author Organization [facility] Address [address] [place] [address] Care Team Providers Care Stewardesses Teacher Name Role Phone Donya Baldwin Primary Care Provider [phone] Allergies Active Allergy Reactions Criticality Noted Date Comments Amlodipine Hives High 01/13/2021 Iodinated Contrast Media Anaphylaxis,Other - Describe In Comment Field High 05/10/2016 Cardiac arrest during stent placement Iizvrlx-Hhv-Voz Reductase Inhibitors Other - Describe In Comment Field High 01/03/2022 Medications meclizine (ANTIVERT) 25 mg tabletIndication s:Vertigo Take 1 Tablet (25 mg) by mouth 3 times daily if needed for Vertigo. 30 Tablet 10/03/2023 Active Encounters Date Type Department Care Team Description 02/20/2025 Office Visit [facility] [address] [place] [address] Rogers George MD Telehealth ([facility] ) from Last 3 Months Social History Tobacco Use Types Packs/Day Years [...] 1-dose 75+ series) 2020 COVID-19 vaccine series (2024- season) 2025 05/18/2022, 05/17/2021, 09/11/2020, Additional history exists Influenza Vaccine (#1) 2025 Hepatitis B series for 19+ Aged Out N o longer eligible based on patient's age to complete this topic Insurance [employer] [id number] MEDICARE PART B HB ONLY Advance Directives Documents on File Type Date Recorded 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
--- OUTSIDE RECORDS SUMMARY | 2025-03-13 17:32 | XMS_ITS | Clinical Summary ---
Author Organization [facility] Address [address] [facility] 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
--- OUTSIDE RECORDS SUMMARY | 2025-03-13 17:34 | XMS_ITS | Encounter Summary ---
Author Organization [facility] Address [address] [place] [address] Care Team Providers Care Embossograph Operator Name Role Phone Elsewhere, Pcp Primary Care Provider Unavailabl e Encounter Details Date Type Department Care Team (Late st Contact Info) Description 12/25/2024 Orders Only Department of Urology in [place], [place] [address] [place] [phone] [facility], Provider, Incontinence Urinary Social History Tobacco Use [...] e alcohol) Not on a regular basis [facility] Utilities Answer Date Recorded [...] your living situation today? I have a [facility] place to live 11/13/2024 Education Answer Date Recorded What is the highest level of school you have completed or the highest degree you have received? 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, in [place], [place] [address] [place] [phone] Emiliana Carrasco M.D. [address] [place] [phone] 03/26/2025 2:30 PM CDT Procedure visit Department of Urology in [place], [place] [address] [place] [phone] Emiliana Carrasco M.D. [address] [place] [phone] 03/27/2025 8:00 AM CDT Office Visit Department of Urology in [place], [place] [address] [place] [phone] Kalin Dumont M.D. [address] [place] [address] documented as of this encounter Results * [...] Dumont M.D. LAB URINE ORDERABLES Final Result [facility] [address] [place] [address], [facility] [address] [place] [address] documented in this encounter Visit Diagnoses Diagnosis Incontinence Urinary documented in this encounter Care Teams Embossograph Operator Relationship Specialty Start Date End Date Elsewhere, Pcp PCP - General Internal Medicine 06/12/24 documented as of this encounter
--- OUTSIDE RECORDS SUMMARY | 2025-03-13 17:34 | XMS_ITS | Continuity of Care Document ---
Author Organization [facility] Address [address] [place] [phone] Care Team Providers Care Bottom Cementer Name Role Phone Elsewhere, Pcp Primary Care Provider Unavailabl e Source Comments Patient records contain information from all sites at [facility]. For routine questions regarding patient records, call [phone] during business hours, M-F 8:00 AM - 5:00 PM Central Time. Record requests for emergency care only can be directed to [phone] at any time.[facility] Encounters Date Type Department Care Team Description 02/25/2025 Clinical Communication Department of Cardiovascular Medicine in [place], [place] [address] [place] [phone] Neha Gardner M.D. Update on father's medications, etc 02/04/2025 7:40 AM CDT - 02/04/2025 11:59 PM CDT Hospital Encounter Department of Cardiovascular Diseases in [place], [place] [address] [place] [phone] Hilario Redman M.D. Discharge Disposition: Home or Self Care 01/16/2025 11:50 AM CDT - 01/16/2025 11:59 PM CDT Hospital Encounter Department of Radiology, [facility], in [address] [phone] Kevin Church M.D. Shortness Of Breath Discharge Disposition: Home or Self Care 01/16/2025 4:30 PM CDT Office Visit Division of Pulmonary Medicine in [address] [phone] Kevin Church M.D. Chronic Obstructive Pulmonary Disease (HCC) (Primary Dx) 12/30/2024 Clinical Communication Department of Urology in [address] [phone] Kalin Dumont M.D. 12/29/2024 8:39 AM CDT - 12/29/2024 11:59 PM CDT Hospital Encounter Department of Laboratory Medicine and Pathology, [facility] in [address] [address] Kalin Dumont M.D. Incontinence Urinary Discharge Disposition: Home or Self Care 12/29/2024 10:30 AM CDT Comprehensive Visit Department of Urology in [address] [address] Kalin Dumont M.D. Incontinence Urinary 12/25/2024 11:45 AM CDT Clinical Communication Virtual Review in [address] [address] Pre-visit Intake 12/25/2024 Orders Only Department of Urology in [address] [phone] [facility] 12/22/2024 [facility] [address] [place] [address] Yohana Watkins, P.A. Incontinence Urinary (Primary Dx) 12/08/2024 [facility] [address] [place] [address] Yohana Watkins, P.A. Infarction Cerebral (HCC) (Primary Dx); Dizziness And Giddiness; Presence Cardioverter- Defibrillator (ICD And AICD) 12/08/2024 2:23 PM CDT - 12/08/2024 11:59 PM CDT Hospital Encounter Department of Cardiovascular Diseases in [place], [place] [address] [place] [address] Arminda Schaeffer M.D. Shortness Of Breath; Tachycardia Ventricular Nonsustained (HCC); Atrial Fibrillation Longstanding Persistent (HCC) Discharge Disposition: Home or Self Care 12/08/2024 11:44 AM CDT - 12/08/2024 2:22 PM CDT Hospital Encounter Department of Radiology, [facility] in [place], [place] [address] [place] [address] Arminda Schaeffer M.D. Shortness Of Breath Discharge Disposition: Home or Self Care 12/08/2024 1:30 PM CDT Comprehensive Visit Division of Pulmonary Medicine in [place], [place] [address] [place] [phone] Kevin Church M.D. Shortness Of Breath 11/19/2024 4:00 PM CDT Office Visit Department of Cardiovascular Medicine in [place], [place] [address] [place] [address] Neha Gardner M.D. Coronary Artery Disease With [...] Hospital Encounter Department of Cardiovascular Diseases in [place], [place] [address] [place] [address] Arminda Schaeffer M.D. Presence Cardioverter- Defibrillator (ICD And AICD); Beat Premature Ventricular Discharge Disposition: Home or Self Care 11/19/2024 11:00 AM CDT - 11/19/2024 11:59 PM CDT Hospital Encounter Department of Laboratory Medicine and Pathology, [facility] in [place], [place] [address] [place] [address] Arminda Schaeffer M.D. Presence Cardioverter- Defibrillator (ICD And AICD); Beat Premature Ventricular Discharge Disposition: Home or Self Care 11/19/2024 2:00 PM CDT Office Visit Department of Cardiovascular Medicine in [place], [place] [address] [place] [phone] Arminda Schaeffer M.D. Shortness Of Breath (Primary Dx); Tachycardia Ventricular Nonsustained (HCC); Coronary Artery Disease With Stable Angina; Chronic Kidney Disease (CKD), Stage 3b Glomerular Filtration Rate (GFR) 30 To 44 (HCC); Atrial Fibrillation Longstanding Persistent (HCC) 11/10/2024 Refill Department of Cardiovascular Medicine in [place], [place] [address] [place] [phone] Arminda Schaeffer M.D. Med Refill 11/05/2024 9:24 AM CDT - 11/05/2024 11:59 PM CDT Hospital Encounter Department of Cardiovascular Diseases in [place], [place] [address] [place] [phone] Anais Marin M.B.B.S. Discharge Disposition: Home or Self Care 11/05/2024 Clinical Communication Department of Cardiovascular Medicine in [place], [place] [address] [place] [phone] Maureen Kim, Edgar. Atrial Fibrillation 10/13/2024 Clinical Communication Department of Cardiovascular Medicine in [address] [phone] Neha Gardner M.D. 10/13/2024 Clinical Communication Department of Cardiovascular Medicine in [place], [place] [address] [place] [phone] Insecticide MakerPartha M.D. Echo Move Up Request (CVD) 08/06/2024 12:49 PM DOCTOR OF OSTEOPATHY - 08/06/2024 11:59 PM DOCTOR OF OSTEOPATHY Hospital Encounter Department of Cardiovascular Diseases in [place], [place] [address] [place] [phone] Kemal Miller M.D. Discharge Disposition: Home or Self Care 07/21/2024 Clinical Communication Department of Cardiovascular Medicine in [place], [place] [address] [place] [phone] Neha Gardner M.D. Med Question 07/11/2024 Orders Only Department of Cardiovascular Medicine in [place], [place] [address] [place] [phone] Arminda Schaeffer M.D. 07/08/2024 Refill Department of Cardiovascular Medicine in [place], [place] [address] [place] [phone] Neha Gardner M.D. Med Refill 06/16/2024 8:16 AM DOCTOR OF OSTEOPATHY - 06/16/2024 11:59 PM DOCTOR OF OSTEOPATHY Hospital Encounter Department of Cardiovascular Diseases in [place], [place] [address] [place] [phone] Aaron Galan M.D. Aftercare Cardiac Defibrillator Discharge Disposition: Home or Self Care 06/16/2024 10:00 AM DOCTOR OF OSTEOPATHY Office Visit Department of Cardiovascular Medicine in [place], [place] [address] [place] [phone] Arminda Schaeffer M.D. Beat Premature Ventricular (Primary Dx); Presence Cardioverter- Defibrillator (ICD And AICD); Tachycardia Ventricular Nonsustained (HCC); Coronary Artery Disease With Stable Angina (HCC); Aneurysm Coronary Artery 06/12/2024 2:15 PM DOCTOR OF OSTEOPATHY Clinical Communication Virtual Review in [place], [place] [address] [place] [address] Pre-visit Intake 05/15/2024 Clinical Communication Department of Cardiovascular Medicine in [place], [place] [address] [place] [phone] Neha Gardner M.D. Update on blood pressures and med 05/01/2024 Documentation Department of Cardiovascular Medicine in [place], [place] [address] [place] [phone] Neha Gardner M.D. 05/01/2024 Orders Only Department of Cardiovascular Medicine in [place], [place] [address] [place] [phone] Neha Gardner M.D. 03/24/2024 4:30 PM CDT Office Visit Department of Cardiovascular Medicine in [address] [address] Kemal Miller M.D. Presence Cardioverter- Defibrillator (ICD And AICD) (Primary Dx) 03/21/2024 Documentation Division of Cardiovascular Diseases in [address] [phone] Kemal Miller M.D. 03/21/2024 Clinical Communication Department of Cardiovascular Medicine in [place], [place] [address] [place] [phone] Insecticide MakerPartha M.D. 03/21/2024 7:51 AM CDT - 03/21/2024 11:59 PM CDT Hospital Encounter Department of Cardiovascular Diseases in [place], [place] [address] [place] [phone] Wesley Varghese M.D., Ph.D. Discharge Disposition: Home or Self Care 03/20/2024 Orders Only Department of Cardiovascular Medicine in [place], [place] [address] [place] [phone] Edna Harris R.N. Aftercare Cardiac Defibrillator (Primary Dx) 03/20/2024 Clinical Communication Department of Cardiovascular Medicine in [address] [phone] Kemal Miller M.D. DEVICE REGISTRATION (ICD IMPLANT) 03/20/2024 9:56 AM CDT - 03/20/2024 11:59 PM CDT Hospital Encounter Department of Cardiovascular Diseases in [address] [address] Kemal Miller M.D. Aftercare Cardiac Defibrillator Discharge Disposition: Home or Self Care 03/19/2024 Orders Only Division of Cardiovascular Diseases in [address] [phone] Vickie Leavitt R.N. Aftercare Cardiac Defibrillator (Primary Dx) 03/19/2024 12:19 PM CDT Anesthesia Event Division of Cardiovascular Diseases in [address] [phone] Edu Escalona APRN, CRNA, D.N.P. Catrachita Farah APRN, CRNA, D.N.PSasha 03/19/2024 12:35 PM CDT - 03/19/2024 4:05 PM CDT Surgery Division of Cardiovascular Diseases in [address] [phone] Kemal Miller M.D. DIAGNOSTIC EPS 03/19/2024 10:38 AM CDT - 03/19/2024 6:30 PM CDT Hospital Encounter Division of Cardiovascular Diseases in [address] [phone] Kemal Miller M.D. Tachycardia Ventricular Nonsustained (HCC) Discharge Disposition: Home or Self Care 03/18/2024 3:00 PM CDT Office Visit Department of Cardiovascular Medicine in [place], [place] [address] [place] [phone] Neha Gardner M.D. Tachycardia Ventricular Nonsustained (HCC) (Primary Dx); Coronary Artery Disease With Stable Angina (HCC); Hyperlipidemia 03/18/2024 8:18 AM CDT - 03/18/2024 10:23 AM CDT Hospital Encounter Department of Cardiovascular Diseases in [place], [place] [address] [place] [phone] Kemal Miller M.D. Tachycardia Ventricular Nonsustained (HCC) Discharge Disposition: Home or Self Care 03/18/2024 11:57 AM CDT - 03/18/2024 11:59 PM CDT Hospital Encounter Department of Radiology, [facility], in [place], [place] [address] [place] [phone] Kemal Miller M.D. Tachycardia Ventricular Nonsustained (HCC) Discharge Disposition: Home or Self Care 03/18/2024 10:24 AM CDT - 03/18/2024 11:56 AM CDT Hospital Encounter Department of Laboratory Medicine and Pathology, [facility] in [place], [place] [address] [place] [phone] Kemal Miller M.D. Tachycardia Ventricular Nonsustained (HCC) Discharge Disposition: Home or Self Care 03/18/2024 1:00 PM CDT Office Visit Department of Cardiovascular Medicine in [place], [place] [address] [place] [phone] Katie Harvey, Manpreet BERMUDEZNSashaP. Tachycardia Ventricular Nonsustained (HCC) (Primary Dx); Coronary Artery Disease With Stable Angina (HCC); Cardiomyopathy Ischemic; Hypertensive Heart And Chronic Kidney Disease Without Heart Failure With Stage 1 To 4 Chronic Kidney Disease Or Unspecified Chronic Kidney Disease; Hyperlipidemia; Stroke Cerebrovascular Accident Personal History; Obstructive Sleep Apnea Adult; 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) 03/14/2024 Clinical Communication Department of Cardiovascular Medicine in [place], [place] [address] [place] [phone] Neha Gardner M.D. Ablation Questions 02/14/2024 Clinical Communication Department of Cardiovascular Medicine in [place], [place] [address] [place] [phone] Neha Gardner M.D. Follow-up (Labs today) 02/08/2024 Clinical Communication Department of Cardiovascular Medicine in [place], [place] [address] [place] [phone] Neha Gardner M.D. Blood Pressure (Blood pressure log) 01/18/2024 Clinical Communication Department of Cardiovascular Medicine in [place], [place] [address] [place] [phone] Neha Gardner M.D. Follow-up 01/15/2024 4:26 PM CDT - 01/15/2024 11:59 PM CDT Hospital Encounter Department of Laboratory Medicine and Pathology, [facility], in [place], [place] [address] [place] [phone] Neha Gardner M.D. Ectopy Ventricular Discharge Disposition: Home or Self Care 01/15/2024 3:00 PM CDT Office Visit Department of Cardiovascular Medicine in [place], [place] [address] [place] [phone] Neha Gardner M.D. Ectopy Ventricular (Primary Dx); Tachycardia Ventricular Nonsustained (HCC); 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 Glomerular Filtration Rate (GFR) 30 To 44 01/10/2024 Clinical Communication Department of Cardiovascular Medicine in [address] [phone] Kemal Miller M.D. Med Question 01/07/2024 Orders Only Department of Cardiovascular Medicine in [place], [place] [address] [place] [phone] Neha Gardner M.D. Tachycardia Ventricular Nonsustained (HCC) (Primary Dx); Coronary Artery Disease With Stable Angina (HCC) 01/01/2024 Clinical Communication Department of Cardiovascular Medicine in [place], [place] [address] [place] [phone] Vida Guido, RBc 01/01/2024 Documentation Division of Cardiovascular Diseases in [address] [phone] Kemal Miller M.D. 01/01/2024 Orders Only Division of Cardiovascular Diseases in [address] [phone] Kemal Miller M.D. 12/31/2023 Clinical Communication Department of Cardiovascular Medicine in [place], [place] [address] [place] [phone] Neha Gardner M.D. EP study +/- ICD implantation still on? 12/19/2023 Clinical Communication Department of Cardiovascular Medicine in [place], [place] [address] [place] [phone] Neha Gardner M.D. Follow-up 12/18/2023 2:00 PM CDT Office Visit Department of Cardiovascular Medicine in [place], [place] [address] [place] [phone] Neha Gardner M.D. Ectopy Ventricular (Primary Dx); Tachycardia Ventricular Nonsustained (HCC); Hyperlipidemia; Aneurysm Coronary Artery; 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 Failure (HCC) 12/18/2023 11:51 AM CDT - 12/18/2023 11:59 PM CDT Hospital Encounter Department of Cardiovascular Diseases in [place], [place] [address] [place] [address] Kemal Miller M.D. Tachycardia Ventricular Nonsustained (HCC) Discharge Disposition: Home or Self Care 12/04/2023 Clinical Communication Department of Cardiovascular Medicine in [place], [place] [address] [place] [address] Neha Gardner M.D. Follow-up 11/08/2023 Clinical Communication Department of Cardiovascular Medicine in [place], [place] [address] [place] [phone] Neha Gardner M.D. Med Question 11/07/2023 Clinical Communication Department of Cardiovascular Medicine in [place], [place] [address] [place] [phone] Insecticide MakerPartha M.D. 10/09/2023 Clinical Communication Department of Cardiovascular Medicine in [place], [place] [address] [place] [address] Jolanta Carranza R.N. 09/26/2023 10:00 AM CDT Virtual Visit Department of Cardiovascular Medicine in [place], [place] [address] [place] [address] Neha Gardner M.D. 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 Coronary Artery Disease With Stable Angina (HCC) (Primary Dx) 08/30/2023 Clinical Communication Department of Cardiovascular Medicine in [place], [place] [address] [place] [phone] Arminda Schaeffer M.D. After Visit Question (EP study) 08/09/2023 9:00 AM DOCTOR OF OSTEOPATHY Comprehensive Visit Department of Cardiovascular Medicine in [place], [place] [address] [place] [phone] Kemal Miller M.D. Tachycardia Ventricular Nonsustained (HCC) (Primary Dx); Ectopy Ventricular; Cardiomyopathy Ischemic; Coronary Artery Disease With Stable Angina (HCC) 07/06/2023 10:50 AM DOCTOR OF OSTEOPATHY - 07/06/2023 11:04 AM [facility] Hospital Encounter Department of Laboratory Medicine and Pathology, [facility] in [place], [place] [address] [place] [phone] Neha Gardner M.D. Ectopy Ventricular; Cardiomyopathy Ischemic; Coronary Artery Disease With Stable Angina (HCC) Discharge Disposition: Home or Self Care 07/06/2023 12:46 PM DOCTOR OF OSTEOPATHY - 07/06/2023 11:59 PM [facility] Hospital Encounter Department of Cardiovascular Diseases in [place], [place] [address] [place] [phone] Neha Gardner M.D. Ectopy Ventricular; Cardiomyopathy Ischemic; Coronary Artery Disease With Stable Angina (HCC) Discharge Disposition: Home or Self Care 07/06/2023 11:05 AM DOCTOR OF OSTEOPATHY - 07/06/2023 12:45 PM [facility] Hospital Encounter Department of Radiology, [facility] in [place], [place] [address] [place] [phone] Neha Gardner M.D. Ectopy Ventricular; Cardiomyopathy Ischemic; Coronary Artery Disease With Stable Angina (HCC) Discharge Disposition: Home or Self Care 06/15/2023 Refill Department of Cardiovascular Medicine in [place], [place] [address] [place] [phone] Neha Gardner M.D. Med Refill 06/15/2023 Clinical Communication Department of Cardiovascular Medicine in [place], [place] [address] [place] [phone] Insecticide MakerPartha M.D. Int cons (Int cons/Evaluate for VT ablation) 06/15/2023 8:14 AM DOCTOR OF OSTEOPATHY - 06/15/2023 9:49 AM DOCTOR OF OSTEOPATHY Hospital Encounter Department of Laboratory Medicine and Pathology, [facility] in [place], [place] [address] [place] [phone] Neha Gardner M.D. Coronary Artery Disease With Stable Angina (HCC); Ectopy Ventricular; 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 Failure (HCC); Hyperlipidemia Discharge Disposition: Home or Self Care 06/15/2023 9:50 AM DOCTOR OF OSTEOPATHY - 06/15/2023 11:59 PM DOCTOR OF OSTEOPATHY Hospital Encounter Department of Radiology, [facility] in [place], [place] [address] [place] [phone] Neha Gardner M.D. Coronary Artery Disease With Stable Angina (HCC); Ectopy Ventricular; 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 Failure (HCC); Hyperlipidemia Discharge Disposition: Home or Self Care 06/15/2023 1:00 PM DOCTOR OF OSTEOPATHY Office Visit Department of Cardiovascular Medicine in [address] [phone] Neha Gardner M.D. Ectopy Ventricular (Primary Dx); Cardiomyopathy Ischemic; Coronary Artery Disease With Stable Angina (HCC); Aneurysm Coronary Artery; Hyperlipidemia 06/14/2023 9:15 AM DOCTOR OF OSTEOPATHY Clinical Communication Virtual Review in [address] [phone] Pre-visit Intake 05/30/2023 9:00 AM DOCTOR OF OSTEOPATHY Virtual Visit Department of Cardiovascular Medicine in [address] [phone] Neha Gardner M.D. Coronary Artery Disease With Stable Angina (HCC) (Primary Dx); Ectopy Ventricular; 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 Failure (HCC); Hyperlipidemia 05/29/2023 Orders Only Department of Cardiovascular Medicine in [address] [phone] Neha Gardner M.D. Ectopy Ventricular (Primary Dx) 05/28/2023 Clinical Communication Department of Cardiovascular Medicine in [address] [phone] Neha Gardner M.D. Notification criteria 05/23/2023 Orders Only Department of Cardiovascular Medicine in [place], [place] [address] [place] [address] Manpreet Lanier M.D. 05/23/2023 12:49 PM DOCTOR OF OSTEOPATHY - 05/23/2023 11:59 PM DOCTOR OF OSTEOPATHY Hospital Encounter Department of Cardiovascular Diseases in [place], [place] [address] [place] [address] Neah Gardner M.D. Coronary Artery Disease With Stable Angina (HCC); Ectopy Ventricular; 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 Failure (HCC); Hyperlipidemia Discharge Disposition: Home or Self Care 05/23/2023 12:13 PM DOCTOR OF OSTEOPATHY - 05/23/2023 12:48 PM DOCTOR OF OSTEOPATHY Hospital Encounter Department of Laboratory Medicine and Pathology, [place], [place] [address] [place] [address] Neha Gardner M.D. Coronary Artery Disease With Stable Angina (HCC); Ectopy Ventricular; 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 Failure (HCC); Hyperlipidemia Discharge Disposition: Home or Self Care 05/23/2023 11:17 AM DOCTOR OF OSTEOPATHY - 05/23/2023 12:12 PM DOCTOR OF OSTEOPATHY Hospital Encounter Department of Cardiovascular Diseases in [place], [place] [address] [place] [address] Neha Gardner M.D. Coronary Artery Disease With Stable Angina (HCC); Ectopy Ventricular; 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 Failure (HCC); Hyperlipidemia Discharge Disposition: Home or Self Care 04/11/2023 Clinical Communication Department of Cardiovascular Medicine in [place], [place] [address] [place] [address] Neha Gardner M.D. Echo 08/07/2022 8:50 AM DOCTOR OF OSTEOPATHY - 08/07/2022 11:59 PM DOCTOR OF OSTEOPATHY Hospital Encounter Department of Laboratory Medicine and Pathology, [place], [place] [address] [place] [address] Neha Gardner M.D. Coronary Artery Disease With Stable Angina (HCC) Discharge Disposition: Home or Self Care 08/05/2022 Orders Only Department of Cardiovascular Medicine in [place], [place] [address] [place] [phone] Neha Gardner M.D. Coronary Artery Disease With Stable Angina (HCC) (Primary Dx) 06/28/2022 Episode Changes Department of Cardiovascular Medicine in [place], [place] [address] [place] [phone] Donna Swift 06/23/2022 8:30 AM DOCTOR OF OSTEOPATHY Office Visit Department of Cardiovascular Medicine in [place], [place] [address] [place] [phone] Neha Gardner M.D. Coronary Artery Disease With Stable Angina (HCC) (Primary Dx); Ectopy Ventricular; 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 Failure (HCC); Hyperlipidemia 06/09/2022 11:15 AM DOCTOR OF OSTEOPATHY - 06/09/2022 11:53 AM DOCTOR OF OSTEOPATHY Hospital Encounter Department of Laboratory Medicine and Pathology, [facility] in [address] [address] Neha Gardner M.D. Cardiomyopathy Ischemic; Coronary Artery Disease With Stable Angina (HCC); Aneurysm Coronary Artery; Ectopy Ventricular; Hyperlipidemia Discharge Disposition: Home or Self Care 06/09/2022 2:34 PM DOCTOR OF OSTEOPATHY - 06/09/2022 11:59 PM DOCTOR OF OSTEOPATHY Hospital Encounter Department of Cardiovascular Diseases in [address] [phone] Neha Gardner M.D. Cardiomyopathy Ischemic; Coronary Artery Disease With Stable Angina (HCC); Aneurysm Coronary Artery; Ectopy Ventricular; Hyperlipidemia Discharge Disposition: Home or Self Care 06/09/2022 11:54 AM DOCTOR OF OSTEOPATHY - 06/09/2022 2:33 PM DOCTOR OF OSTEOPATHY Hospital Encounter Department of Cardiovascular Diseases in [address] [phone] Neha Gardner M.D. Cardiomyopathy Ischemic; Coronary Artery Disease With Stable Angina (HCC); Aneurysm Coronary Artery; Ectopy Ventricular; Hyperlipidemia Discharge Disposition: Home or Self Care 06/08/2022 9:45 AM DOCTOR OF OSTEOPATHY Clinical Communication Virtual Review in [place], [place] [address] [place] [address] Pre-visit Intake 05/29/2022 Clinical Communication Department of Cardiovascular Medicine in [place], [place] [address] [place] [phone] Insecticide MakerPartha M.D. 05/22/2022 8:15 AM [facility] Clinical Communication Virtual Review in [place], [place] [address] [place] [address] 05/05/2022 Orders Only Department of Cardiovascular Medicine in [place], [place] [address] [place] [phone] Neha Gardner M.D. Cardiomyopathy Ischemic (Primary Dx); Coronary Artery Disease With Stable Angina (HCC); Aneurysm Coronary Artery; Ectopy Ventricular; Hyperlipidemia 05/04/2022 Clinical Communication Department of Cardiovascular Medicine in [place], [place] [address] [place] [address] Neha Gardner M.D. Follow-up 04/04/[address] [address] Yohana Watkins P.Sunshine 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 (HCC) (Primary Dx); Abdominal Aortic Aneurysm Without Rupture Unspecified (HCC); Aneurysm Coronary Artery 08/26/2021 Refill Department of Cardiovascular Medicine in [place], [place] [address] [place] [address] Neha Gardner M.D. Med Refill 08/14/2021 Refill Department of Cardiovascular Medicine in [place], [place] [address] [place] [phone] Neha Gardner M.D. Med Refill 08/01/2021 Remote Monitoring Remote Patient Monitoring [facility] [address] [place] [address] Makenzie Meeks Complex Care Coordination (Julying ) 07/15/2021 Remote Monitoring Remote Patient Monitoring [facility] [address] [place] [address] Makenzie Meeks Graduation (Patient graduated from the Remote Monitoring program. ) 07/15/2021 Remote Monitoring Remote Patient Monitoring [facility] [address] [place] [address] Kathryn Avitia R.N. COVID-19 Remote Patient Monitoring; Graduation 07/14/2021 Remote Monitoring Remote Patient Monitoring [facility] [address] [place] [address] Karen Maxwell R.N. COVID-19 Remote Patient Monitoring; Symptom Assessment 07/14/2021 Remote Monitoring Remote Patient Monitoring [facility] [address] [place] [address] Mabel Brambila, M.S.N., R.N. COVID-19 Remote Patient Monitoring; Symptom Assessment 07/13/2021 Remote Monitoring Remote Patient Monitoring [facility] [address] [place] [address] Joo Mckeon, Edgar., C.M.S.R.N., [facility] COVID-19 Remote Patient Monitoring; Symptom Assessment 07/10/2021 Refill Department of Cardiovascular Medicine in [place], [place] [address] [place] [phone] Neha Gardner M.D. Med Refill 07/07/2021 Remote Monitoring Remote Patient Monitoring [facility] [address] [place] [address] Megan Clinton Welcome Call (Welcome call completed (environmental lead), equipment ordered before 1 pm today, scheduled to arrive 07/08); Patient Education (Complex Care/COVID19, welcome letter, and terms of service sent 07/07) 07/07/2021 Episode Changes Remote Patient Monitoring [facility] [address] [place] [address] Megan Clinton 07/07/2021 Remote Monitoring Remote Patient Monitoring [facility] [address] [place] [address] Karen Maxwell RSashaNSasha COVID-19 Remote Patient Monitoring; Intake Assessment 07/06/2021 Episode Changes Remote Patient Monitoring [facility] [address] [place] [address] Kalee Hilton R.N. 07/06/2021 Clinical Communication Division of Critical Access Hospital Internal Medicine, [facility], in [place], [place] [address] [place] [phone] Fabian Mckinney, M.Jeff., R.N. Results (MWCCT) 07/05/2021 External Outreach Department of Family Medicine in [place], [place] [address] [place] [phone] Tana Brunner M.D. Contact With And (Suspected) Exposure To COVID-19 (Primary Dx) Discharge Disposition: Home or Self Care 07/05/2021 2:40 PM DOCTOR OF OSTEOPATHY Admin Visit Urgent Care, [facility], in [place], [place] [address] [place] [phone] 07/04/2021 Clinical Communication Division of Critical Access Hospital Internal Medicine, [facility], in [place], [place] [address] [place] [address] Marciano Kelly R.N. 03/29/2021 Orders Only RST PCP [facility]TH MNT Yohana Chavez M.D. 03/22/2021 9:00 AM CDT Ancillary Procedure Department of Radiology in [place], [place] [address] [place] [phone] Lauren Portillo M.D. Stroke Cerebrovascular Accident Personal History 03/22/2021 9:00 AM CDT Ancillary Procedure Department of Radiology in [place], [place] [address] [place] [phone] Lauren Portillo M.D. Stroke Cerebrovascular Accident Personal History 03/22/2021 11:30 AM CDT Comprehensive Visit Department of Neurology in [place], [place] [address] [place] [phone] Lauren Portillo M.D. Cerebrovascular Disease (Primary Dx); Spells Neurological (HCC) 03/21/2021 9:40 AM CDT Clinical Communication Virtual Review in [place], [place] [address] [place] [address] Neha Gardner M.D. Pre-visit Intake 01/19/2021 [facility] [address] [place] [address] Yohana Watkins PFreddie Stroke (HCC) (Primary Dx) 01/07/2021 Documentation Department of Cardiovascular Medicine in [place], [place] [address] [place] [phone] Neha Gardner M.D. 01/07/2021 Orders Only Department of Cardiovascular Medicine in [place], [place] [address] [place] [address] Neha Gardner M.D. Stroke (HCC) (Primary Dx) 07/12/2020 Refill Department of Cardiovascular Medicine in [place], [place] [address] [place] [address] Neha Gardner M.D. Med Refill 06/16/2020 4:00 PM DOCTOR OF OSTEOPATHY Office Visit Department of Cardiovascular Medicine in [place], [place] [address] [place] [address] Neha Gardner M.D. 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 Beat Premature Ventricular; Cardiomyopathy Ischemic; Coronary Artery Disease With Stable Angina (HCC); Hyperlipidemia Discharge Disposition: Home or Self Care 06/16/2020 11:43 AM DOCTOR OF OSTEOPATHY - 06/16/2020 11:59 PM DOCTOR OF OSTEOPATHY Hospital Encounter Department of Cardiovascular Diseases in [place], [place] [address] [place] [address] Neha Gardner M.D. Beat Premature Ventricular; Cardiomyopathy Ischemic; Coronary Artery Disease With Stable Angina (HCC); Hyperlipidemia Discharge Disposition: Home or Self Care 06/14/2020 Orders Only Department of Cardiovascular Medicine in [place], [place] [address] [place] [address] Neha Gardner M.D. Cardiomyopathy Ischemic (Primary Dx); Beat Premature Ventricular; Coronary Artery Disease With Stable Angina (HCC); Hyperlipidemia 06/11/2020 Orders Only Department of Cardiovascular Medicine in [place], [place] [address] [place] [address] Neha Gardner M.D. 02/09/2020 Refill Department of Cardiovascular Medicine in [place], [place] [address] [place] [phone] Neha Gardner M.D. Med Refill 12/09/2019 Clinical Communication Department of Cardiovascular Medicine in [place], [place] [address] [place] [phone] Neha Gardner M.D. Med Question (Communication) 08/26/2019 Refill Department of Cardiovascular Medicine in [address] [phone] Neha Gardner M.D. Med Refill; Med Refill 08/14/2019 Refill Department of Cardiovascular Medicine in [address] [phone] Neha Gardner M.D. Med Refill 08/12/2019 Clinical Communication Department of Cardiovascular Medicine in [address] [phone] Neha Gardner M.D. Results 08/07/2019 Clinical Communication Department of Cardiovascular Medicine in [address] [phone] Neha Gardner M.D. New Medication Clarification 07/30/2019 Clinical Communication Department of Cardiovascular Diseases in [address] [address] Gisela Galdamez CRAT 07/21/2019 9:19 AM DOCTOR OF OSTEOPATHY - 07/21/2019 11:59 PM DOCTOR OF OSTEOPATHY Hospital Encounter Department of Cardiovascular Diseases in [address] [phone] Neha Gardner M.D. Failure Heart (HCC); Beat Premature Ventricular; Cardiomyopathy Ischemic Discharge Disposition: Home or Self Care 07/09/2019 Orders Only Department of Cardiovascular Medicine in [address] [address] Neha Gardner M.D. Cardiomyopathy Ischemic (Primary Dx) 07/08/2019 2:00 PM DOCTOR OF OSTEOPATHY Comprehensive Visit Department of Cardiovascular Medicine in [address] [phone] Neha Gardner M.D. Failure Heart (HCC) (Primary Dx); Beat Premature Ventricular; Cardiomyopathy Ischemic; Coronary Artery Disease With Stable Angina (HCC); Aneurysm Coronary Artery; 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 (HCC); Hyperlipidemia 07/08/2019 9:10 AM DOCTOR OF OSTEOPATHY - 07/08/2019 10:19 AM [facility] Hospital Encounter Department of Radiology, [place], [place] [address] [place] [address] Neha Gardner M.D. Cardiomyopathy Ischemic; Failure Heart (HCC); Chronic Kidney Disease Stage 3 Glomerular Filtration Rate 30 To 59; Hyperlipidemia; Aneurysm Coronary Artery; Coronary Artery Disease With Stable Angina (HCC) Discharge Disposition: Home or Self Care 07/08/2019 10:20 AM DOCTOR OF OSTEOPATHY - 07/08/2019 11:59 PM DOCTOR OF OSTEOPATHY Hospital Encounter Department of Laboratory Medicine and Pathology, [place], [place] [address] [place] [phone] Neha Gardner M.D. Cardiomyopathy Ischemic; Failure Heart (HCC); Chronic Kidney Disease Stage 3 Glomerular Filtration Rate 30 To 59; Hyperlipidemia; Aneurysm Coronary Artery; Coronary Artery Disease With Stable Angina (HCC) Discharge Disposition: Home or Self Care 07/04/2019 Clinical Communication Department of Cardiovascular Medicine in [place], [place] [address] [place] [phone] Neha Gardner M.D. 06/26/2019 Clinical Communication Department of Cardiovascular Medicine in [place], [place] [address] [place] [phone] Neha Gardner M.D. 06/03/2019 Clinical Communication Department of Cardiovascular Medicine in [place], [place] [address] [place] [phone] Neha Gardner M.D. Appointment 01/21/2019 4:00 PM CDT Office Visit Department of Cardiovascular Medicine in [place], [place] [address] [place] [phone] Neha Gardner M.D. Cardiomyopathy Ischemic (Primary Dx); Failure Heart (HCC); Chronic Kidney Disease Stage 3 Glomerular Filtration Rate 30 To 59; Hyperlipidemia; Aneurysm Coronary Artery; Coronary Artery Disease With Stable Angina (HCC) 01/21/2019 1:14 PM CDT - 01/21/2019 11:59 PM CDT Hospital Encounter Department of Cardiovascular Diseases in [place], [place] [address] [place] [phone] Neha Gardner M.D. Coronary Artery Disease (Unspecified); Cardiomyopathy Ischemic; Pain Chest; Dyspnea On Exertion; Snoring; Apnea Sleep Obstructive Discharge Disposition: Home or Self Care 01/07/2019 8:44 AM CDT - 01/07/2019 12:18 PM CDT Hospital Encounter Department of Radiology, [place], [place] [address] [place] [phone] Neha Gardner M.D. Coronary Artery Disease (Unspecified); Cardiomyopathy Ischemic; Pain Chest; Dyspnea On Exertion; Snoring; Apnea Sleep Obstructive Discharge Disposition: Home or Self Care 01/07/2019 12:19 PM CDT - 01/07/2019 11:59 PM CDT Hospital Encounter Department of Radiology, [place], [place] [address] [place] [phone] Neha Gardner M.D. Coronary Artery Disease (Unspecified); Cardiomyopathy Ischemic; Pain Chest; Dyspnea On Exertion; Snoring; Apnea Sleep Obstructive Discharge Disposition: Home or Self Care 12/31/2018 7:20 AM CDT - 12/31/2018 11:59 PM CDT [facility] [place] [place] [address] [place] [phone] Neha Gardner M.D. Coronary Artery Disease (Unspecified); Hyperlipidemia; Fatigue; Impaired Fasting Glucose; Cardiomyopathy Ischemic Discharge Disposition: Home or Self Care 12/31/2018 6:50 AM CDT - 12/31/2018 7:19 AM CDT Hospital En[place] [address] [place] [phone] Neha Gardner M.D. Coronary Artery Disease (Unspecified); Hyperlipidemia; Fatigue; Impaired Fasting Glucose; Cardiomyopathy Ischemic Discharge Disposition: Home or Self Care 12/31/2018 9:30 AM CDT Office Visit Department of Cardiovascular Medicine in [place], [place] [address] [place] [phone] Neha Gardner M.D. Coronary Artery Disease (Unspecified) [...] Hospital Encounter Department of Cardiovascular Diseases in [place], [place] [address] [place] [phone] Neha Gardner M.D. Coronary Artery Disease (Unspecified); Hyperlipidemia; Fatigue; Impaired Fasting Glucose; Cardiomyopathy Ischemic Discharge Disposition: Home or Self Care 12/16/2018 Orders Only Department of Cardiovascular Medicine in [place], [place] [address] [place] [phone] Neha Gardner M.D. Coronary Artery Disease (Unspecified) (Primary Dx); Hyperlipidemia; Fatigue; Impaired Fasting Glucose; Cardiomyopathy Ischemic 12/13/2018 Clinical Communication Department of Cardiovascular Medicine in [place], [place] [address] [place] [phone] Neha Gardner M.D. Appointment 06/14/2018 Refill Department of Cardiovascular Medicine in [place], [place] [address] [place] [phone] Neha Gardner M.D. Med Refill 06/04/2017 6:13 AM DOCTOR OF OSTEOPATHY - 06/12/2017 1:56 PM DOCTOR OF OSTEOPATHY Hospital Encounter HX RST LEONOR HANSAMY Sanders 06/04/2017 5:10 AM DOCTOR OF OSTEOPATHY - 06/04/2017 11:59 PM DOCTOR OF OSTEOPATHY Hospital Encounter HX NO Natasha Oden 06/04/2017 7:50 AM DOCTOR OF OSTEOPATHY Telemedicine Department of Anesthesiology 06/01/2017 - 06/01/2017 11:59 PM DOCTOR OF OSTEOPATHY Hospital Encounter HX NO MAPPING Provider, Historical 05/08/2017 - 05/08/2017 11:59 PM DOCTOR OF OSTEOPATHY Hospital Encounter HX NO MAPPING Provider, Historical 05/08/2017 3:16 PM DOCTOR OF OSTEOPATHY - 05/08/2017 11:59 PM DOCTOR OF OSTEOPATHY Hospital Encounter HX RST [facility] [...] PM CDT Hospital Encounter HX RST KRISTEN 01/13/2016 5:36 PM CDT - 01/13/2016 11:26 PM CDT Emergency HX RST EMERGENCY TRAUMA UNI Provider, Historical Allergies Active Allergy Reactions Criticality Noted Date Comments Iodinated Contrast Media Anaphylaxis High 05/10/2016 Cardiac arrest during stent placement Amlodipine Hives (Reselect Reaction) High 01/13/2021 Gmzgysr-Pls-Nad Reductase Inhibitors Other (see comments) Medium 01/03/2022 [...] History Relation Name Comments Hypertension Father Casey Barbosar Asthma Mother Afshan Salas (Gerald) [place] Rheum arthritis Mother Afshan Salas (Gerald) [place] Diabetes Paternal Grandfather Isra Duarte Relation Name Status Comments Father Casey [place] Alive Mother Afshan Salas (Gerald) [place] Alive Paternal Grandfather Isra Duarte Alive Social History Smoking Status as of 03/13/2025 Tobacco Use Types Packs/Day Years Used Date Smoking Tobacco: Never Assessed [facility] Utilities Answer Date Recorded In the past 12 months has e K[employer]ie Kist, gas, oil, or water Your Survival threatened to shut off services in your [...] your living situation today? I have a soren place to live 11/13/2024 Education Answer Date Recorded What is the highest level of school you have completed or the highest degree you have received? 12th grade 03/18/2021 Sex and Gender Information Value Date Recorded Sex Assigned at Male 03/18/2021 9:25 AM CDT Legal Sex Male 6:03 AM DOCTOR OF OSTEOPATHY Gender Identity Male 12/20/2017 11:12 AM CDT Sexual Orientation Straight 12/20/2017 11 :12 AM CDT Last Filed Vital Signs Vital Sign Reading Time Taken Comments Blood Pressure 130/74 01/16/2025 4:26 PM CDT Pulse 70 01/16/2025 4:26 PM CDT Temperature 36.3 C (97.3 F) 01/16/2025 4:26 PM CDT Respiratory Rate 21 06/12/2017 1:15 PM DOCTOR OF OSTEOPATHY Value from [employer]. Oxygen Saturation 98% 01/16/2025 [...] AM CDT Clinical Communication Virtual Review in [place], [place] [address] [place] [address] 03/26/2025 12:00 PM CDT Appointment Department of Laboratory Medicine and Pathology, [facility], in [place], [place] [address] [place] [phone] Emiliana Carrasco M.D. [address] [place] [phone] 03/26/2025 2:30 PM CDT Procedure visit Department of Urology in [place], [place] [address] [place] [phone] Emiliana Carrasco M.D. [address] [place] [address] 03/27/2025 8:00 AM CDT Office Visit Department of Urology in [place], [place] [address] [place] [address] Kalin Dumont M.D. [address] [place] [address] Medical Devices Implanted Type Area Minibus Driver Device Identifier Shelf Expiration Date Model / Serial / Lot Conversions - Default Historical Implant Device Implanted:Qty: 2 on 01/14/2016 Ankle Implant Right: Ankle Description:Body Location - Ankle R. Device Status Text - Ankle Imp. Lead Rl4f Defib Biplr 59 - [id number] - [id number] Implanted:Qty: 1 on 03/19/2024 by Kemal Miller M.D. at [facility] Cardiac Lead N/A: Heart [employer] 01/29/2026 [id number] / [id number] / Lead Ppm Ingevity+ Biplr 52 - [id number] - [id number] Implanted:Qty: 1 on 03/19/2024 by Kemal Miller M.D. at [facility] Cardiac Lead N/A: Heart [employer] 01/29/2026 [id number] / [id number] / Variax-Screw Lock Cross Pin 2.3x 8 - Renee [id number] Implanted:Qty: 2 on 01/14/2016 Hardware e.g. pins/screws/rods Bacova Description:Device Manufactu rer - [employer] Quynh.. Device Status Text - [id number]. Trimed-Screw Andrés. 3.5mm X 35mm - Renee [id number] Implanted:Qty: 1 on 01/14/2016 Hardware e.g. pins/screws/rods [employer] Description:Device Manufactu rer - Tr[employer] Inc.. Device Status Text - [id number]. Variax-Screw Lock Cross Pin 2.3x13 - Renee [id number] Implanted:Qty: 1 on 01/14/2016 Hardware e.g. pins/screws/rods Bacova Description:Device Manufactu rer - [employer] Quynh.. Device Status Text - [id number]. Variax-Screw Lock Cross Pin 2.3x11 - Renee [id number] Implanted:Qty: 1 on 01/14/2016 Hardware e.g. pins/screws/rods [employer]ova Description:Device Manufactu rer - [employer] Quynh.. Device Status Text - HARDWARE-[id number]. Variax-Plate 2.3mm Profyle T Ji 6ho - Renee [id number] Implanted:Qty: 1 on 01/14/2016 Hardware e.g. pins/screws/rods Polina Description:Device Manufactu rer - [employer] Quynh.. Device Status Text - [id number]. Icd Rsn Dr 0.99x5.37x7.38 - [id number] - [id number] Implanted:Qty: 1 on 03/19/2024 by Kemal Miller M.D. at [facility] Implant Cardiac Defibrillator Left: Chest [employer] 02/13/2026 [id number] / [id number] / Conversions - Default Historical Implant Device [...] REMOTE DEVICE CHECK Routine 08/06/2024 12:49 PM DOCTOR OF OSTEOPATHY ICD DUAL CHAMBER INTERROGATION WITH PROGRAMMING Routine 06/16/2024 8:47 AM DOCTOR OF OSTEOPATHY Aftercare Cardiac Defibrillator INTERFACED REMOTE DEVICE CHECK [...] Angina (HCC) HOLTER MONITOR - IN CLINIC SUPERVISOR FISH PROCESSING Routine 12/18/2023 12:08 PM CDT Tachycardia Ventricular Nonsustained (HCC) OUTSIDE MR NEURO Routine 09/19/2023 2:[address] NEURO Routine 09/19/2023 9:[address] NEURO Routine 09/19/2023 9:50 AM CDT OUTSIDE OTHER Routine 09/19/2023 9:45 AM CDT OUTSIDE US CARD Routine 09/19/2023 12:00 AM CDT HOLTER MONITOR - IN CLINIC SUPERVISOR FISH PROCESSING Routine 07/07/2023 3:08 PM DOCTOR OF OSTEOPATHY Ectopy Ventricular Cardiomyopathy Ischemic Coronary Artery Disease With Stable Angina (HCC) MR CARDIAC WITHOUT AND WITH IV CONTRAST RAD - Routine (most inpatients and all outpatients) 07/06/2023 12:32 PM DOCTOR OF OSTEOPATHY Ectopy Ventricular Cardiomyopathy Ischemic Coronary Artery Disease With Stable Angina (HCC) ALANINE AMINOTRANSFERASE (ALT), S/P Routine 07/06/2023 10:59 AM DOCTOR OF OSTEOPATHY Ectopy Ventricular Cardiomyopathy Ischemic Coronary Artery Disease With Stable Angina (HCC) LIPID PANEL, S Routine 07/06/2023 10:59 AM DOCTOR OF OSTEOPATHY Ectopy Ventricular Cardiomyopathy Ischemic Coronary Artery Disease With Stable Angina (HCC) PULMONARY FUNCTION TESTS Routine 06/15/2023 10:28 AM DOCTOR OF OSTEOPATHY Coronary Artery Disease With Stable Angina (HCC) Ectopy Ventricular 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 Failure (HCC) Hyperlipidemia DX CHEST AP OR PA AND LATERAL 2 VIEWS RAD - Routine (most inpatients and all outpatients) 06/15/2023 9:58 AM DOCTOR OF OSTEOPATHY Coronary Artery Disease With Stable Angina (HCC) Ectopy Ventricular 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 Failure (HCC) Hyperlipidemia ECG Routine 06/15/2023 8:48 AM DOCTOR OF OSTEOPATHY Coronary Artery Disease With Stable Angina (HCC) Ectopy Ventricular 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 Failure (HCC) Hyperlipidemia THYROID FUNCTION CASCADE, S Routine 06/15/2023 8:28 AM DOCTOR OF OSTEOPATHY Coronary Artery Disease With Stable Angina (HCC) Ectopy Ventricular 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 Failure (HCC) Hyperlipidemia MAGNESIUM, S Routine 06/15/2023 8:28 AM DOCTOR OF OSTEOPATHY Coronary Artery Disease With Stable Angina (HCC) Ectopy Ventricular 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 Failure (HCC) Hyperlipidemia PROTHROMBIN TIME (PT), P Routine 06/15/2023 8:27 AM DOCTOR OF OSTEOPATHY Coronary Artery Disease With Stable Angina (HCC) Ectopy Ventricular 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 Failure (HCC) Hyperlipidemia HOLTER MONITOR - IN CLINIC SUPERVISOR FISH PROCESSING Routine 05/24/2023 10:55 AM DOCTOR OF OSTEOPATHY Coronary Artery Disease With Stable Angina (HCC) Ectopy Ventricular 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 Failure (HCC) Hyperlipidemia (TTE) 2D ECHO DOPPLER COLOR Routine 05/23/2023 1:44 PM DOCTOR OF OSTEOPATHY Coronary Artery Disease With Stable Angina (HCC) Ectopy Ventricular 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 Failure (HCC) Hyperlipidemia CBC WITHOUT DIFFERENTIAL, B Routine 05/23/2023 12:26 PM DOCTOR OF OSTEOPATHY Coronary Artery Disease With Stable Angina (HCC) Ectopy Ventricular 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 Failure (HCC) Hyperlipidemia LIPID PANEL, S Routine 05/23/2023 12:26 PM DOCTOR OF OSTEOPATHY Coronary Artery Disease With Stable Angina (HCC) Ectopy Ventricular 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 Failure (HCC) Hyperlipidemia COMPREHENSIVE METABOLIC PANEL, S/P Routine 05/23/2023 12:26 PM DOCTOR OF OSTEOPATHY Coronary Artery Disease With Stable Angina (HCC) Ectopy Ventricular 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 Failure (HCC) Hyperlipidemia HEMOGLOBIN A1C, B Routine 05/23/2023 12:26 PM DOCTOR OF OSTEOPATHY Coronary Artery Disease With Stable Angina (HCC) Ectopy Ventricular 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 Failure (HCC) Hyperlipidemia NT-PRO B-TYPE NATRIURETIC PEPTIDE (BNP), S Routine 05/23/2023 12:26 PM DOCTOR OF OSTEOPATHY Coronary Artery Disease With Stable Angina (HCC) Ectopy Ventricular 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 Failure (HCC) Hyperlipidemia BASIC METABOLIC PANEL, S/P Routine 08/07/2022 9:47 AM DOCTOR OF OSTEOPATHY Coronary Artery Disease With Stable Angina (HCC) HOLTER MONITOR - IN CLINIC SUPERVISOR FISH PROCESSING Routine 06/10/2022 12:51 PM DOCTOR OF OSTEOPATHY Cardiomyopathy Ischemic Coronary Artery Disease With Stable Angina (HCC) Aneurysm Coronary Artery Ectopy Ventricular Hyperlipidemia (TTE) 2D ECHO DOPPLER COLOR AND CONTRAST Routine 06/09/2022 4:08 PM DOCTOR OF OSTEOPATHY Cardiomyopathy Ischemic Coronary Artery Disease With Stable Angina (HCC) Aneurysm Coronary Artery Ectopy Ventricular Hyperlipidemia ECG Routine 06/09/2022 11:50 AM DOCTOR OF OSTEOPATHY Cardiomyopathy Ischemic Coronary Artery Disease With Stable Angina (HCC) Aneurysm Coronary Artery Ectopy Ventricular Hyperlipidemia CBC WITH DIFFERENTIAL, B Routine 06/09/2022 11:37 AM DOCTOR OF OSTEOPATHY Cardiomyopathy Ischemic Coronary Artery Disease With Stable Angina (HCC) Aneurysm Coronary Artery Ectopy Ventricular Hyperlipidemia COMPREHENSIVE METABOLIC PANEL, S/P Routine 06/09/2022 11:37 AM DOCTOR OF OSTEOPATHY Cardiomyopathy Ischemic Coronary Artery Disease With Stable Angina (HCC) Aneurysm Coronary Artery Ectopy Ventricular Hyperlipidemia HEMOGLOBIN A1C, B Routine 06/09/2022 11:37 AM DOCTOR OF OSTEOPATHY Cardiomyopathy Ischemic Coronary Artery Disease With Stable Angina (HCC) Aneurysm Coronary Artery Ectopy Ventricular Hyperlipidemia MAGNESIUM, S Routine 06/09/2022 11:37 AM DOCTOR OF OSTEOPATHY Cardiomyopathy Ischemic Coronary Artery Disease With Stable Angina (HCC) Aneurysm Coronary Artery Ectopy Ventricular Hyperlipidemia THYROID FUNCTION CASCADE, S Routine 06/09/2022 11:37 AM DOCTOR OF OSTEOPATHY Cardiomyopathy Ischemic Coronary Artery Disease With Stable Angina (HCC) Aneurysm Coronary Artery Ectopy Ventricular Hyperlipidemia LIPID PANEL, S Routine 06/09/2022 11:37 AM DOCTOR OF OSTEOPATHY Cardiomyopathy Ischemic Coronary Artery Disease With Stable Angina (HCC) Aneurysm Coronary Artery Ectopy Ventricular Hyperlipidemia OUTSIDE US BODY Routine 03/17/2022 8:10 AM CDT OUTSIDE DX SKELETAL Routine 11/24/2021 9:15 AM CDT OUTSIDE DX SKELETAL Routine 11/24/2021 9:10 AM CDT SARS CORONAVIRUS-2 RNA, V Routine 07/05/2021 2:52 PM DOCTOR OF OSTEOPATHY Contact With And (Suspected) Exposure To COVID-19 [...] COLOR AND CONTRAST Routine 06/16/2020 1:43 PM DOCTOR OF OSTEOPATHY Beat Premature Ventricular Cardiomyopathy Ischemic Coronary Artery Disease With Stable Angina (HCC) Hyperlipidemia ECG Routine 06/16/2020 8:56 AM DOCTOR OF OSTEOPATHY Beat Premature Ventricular Cardiomyopathy Ischemic Coronary Artery Disease With Stable Angina (HCC) Hyperlipidemia CBC WITHOUT DIFFERENTIAL, B Routine 06/16/2020 8:44 AM DOCTOR OF OSTEOPATHY Beat Premature Ventricular Cardiomyopathy Ischemic Coronary Artery Disease With Stable Angina (HCC) Hyperlipidemia NT-PRO B-TYPE NATRIURETIC PEPTIDE (BNP), S Routine 06/16/2020 8:44 AM DOCTOR OF OSTEOPATHY Beat Premature Ventricular Cardiomyopathy Ischemic Coronary Artery Disease With Stable Angina (HCC) Hyperlipidemia THYROID-STIMULATING HORMONE-SENSITIVE (S-TSH) Routine 06/16/2020 8:44 AM DOCTOR OF OSTEOPATHY Beat Premature Ventricular Cardiomyopathy Ischemic Coronary Artery Disease With Stable Angina (HCC) Hyperlipidemia LIPID PANEL, S Routine 06/16/2020 8:44 AM DOCTOR OF OSTEOPATHY Beat Premature Ventricular Cardiomyopathy Ischemic Coronary Artery Disease With Stable Angina (HCC) Hyperlipidemia COMPREHENSIVE METABOLIC PANEL, S/P Routine 06/16/2020 8:44 AM DOCTOR OF OSTEOPATHY Beat Premature Ventricular Cardiomyopathy Ischemic Coronary Artery Disease With Stable Angina (HCC) Hyperlipidemia [employer] - [employer] SUPERVISOR [employer] PROCESSING Routine 07/21/2019 9:34 AM DOCTOR OF OSTEOPATHY Failure Heart (HCC) Beat Premature Ventricular Cardiomyopathy Ischemic ECG Routine 07/08/2019 11:23 AM DOCTOR OF OSTEOPATHY Cardiomyopathy Ischemic Failure Heart (HCC) Chronic Kidney Disease Stage 3 Glomerular Filtration Rate 30 To 59 Hyperlipidemia Aneurysm Coronary Artery Coronary Artery Disease With Stable Angina (HCC) NM CARDIAC BLOOD POOL MUGA AT REST RAD - Routine (most inpatients and all outpatients) 07/08/2019 11:12 AM DOCTOR OF OSTEOPATHY Cardiomyopathy Ischemic Failure Heart (HCC) Chronic Kidney Disease Stage 3 Glomerular Filtration Rate 30 To 59 Hyperlipidemia Aneurysm Coronary Artery Coronary Artery Disease With Stable Angina (HCC) CBC WITHOUT DIFFERENTIAL, B Routine 07/08/2019 10:58 AM DOCTOR OF OSTEOPATHY Cardiomyopathy Ischemic Failure Heart (HCC) Chronic Kidney Disease Stage 3 Glomerular Filtration Rate 30 To 59 Hyperlipidemia Aneurysm Coronary Artery Coronary Artery Disease With Stable Angina (HCC) NT-PRO B-TYPE NATRIURETIC PEPTIDE (BNP), S Routine 07/08/2019 10:58 AM DOCTOR OF OSTEOPATHY Cardiomyopathy Ischemic Failure Heart (HCC) Chronic Kidney Disease Stage 3 Glomerular Filtration Rate 30 To 59 Hyperlipidemia Aneurysm Coronary Artery Coronary Artery Disease With Stable Angina (HCC) LIPID PANEL, S Routine 07/08/2019 10:58 AM DOCTOR OF OSTEOPATHY Cardiomyopathy Ischemic Failure Heart (HCC) Chronic Kidney Disease Stage 3 Glomerular Filtration Rate 30 To 59 Hyperlipidemia Aneurysm Coronary Artery Coronary Artery Disease With Stable Angina (HCC) BASIC METABOLIC PANEL, S/P Routine 07/08/2019 10:54 AM DOCTOR OF OSTEOPATHY Failure Heart (HCC) CARDIOPULMONARY (VO2) EXERCISE TEST [...] TIME (PT), P Routine 05/28/2018 9:18 AM DOCTOR OF OSTEOPATHY Coronary Artery Disease CBC WITHOUT DIFFERENTIAL, B Routine 06/12/2017 6:50 AM DOCTOR OF OSTEOPATHY PROTHROMBIN TIME (PT), P Routine 06/12/2017 6:50 AM DOCTOR OF OSTEOPATHY ELPN WITH CREATININE SHEREEN, P Routine 06/12/2017 6:50 AM DOCTOR OF OSTEOPATHY PROTHROMBIN TIME (PT), P Routine 06/11/2017 7:46 AM DOCTOR OF OSTEOPATHY CBC WITHOUT DIFFERENTIAL, B Routine 06/11/2017 7:46 AM DOCTOR OF OSTEOPATHY ELPN WITH CREATININE SHEREEN, P Routine 06/11/2017 7:46 AM DOCTOR OF OSTEOPATHY ECG Routine 06/11/2017 7:15 AM DOCTOR OF OSTEOPATHY DX CHEST AP OR PA AND LATERAL 2 VIEWS Routine 06/11/2017 6:08 AM DOCTOR OF OSTEOPATHY GLUCOSE POCT, B Routine 06/10/2017 5:36 PM DOCTOR OF OSTEOPATHY GLUCOSE POCT, B Routine 06/10/2017 12:05 PM DOCTOR OF OSTEOPATHY DX CHEST PORTABLE 1 VIEW Routine 06/10/2017 9:22 AM DOCTOR OF OSTEOPATHY ELPN WITH CREATININE SHEREEN, P Routine 06/10/2017 6:09 AM DOCTOR OF OSTEOPATHY CBC WITHOUT DIFFERENTIAL, B Routine 06/10/2017 6:09 AM DOCTOR OF OSTEOPATHY PROTHROMBIN TIME (PT), P Routine 06/10/2017 6:09 AM DOCTOR OF OSTEOPATHY GLUCOSE POCT, B Routine 06/09/2017 10:40 PM DOCTOR OF OSTEOPATHY DX ABDOMEN PORTABLE ANTERIOR POSTERIOR 1 VIEW Routine 06/09/2017 6:25 PM DOCTOR OF OSTEOPATHY GLUCOSE POCT, B Routine 06/09/2017 5:54 PM DOCTOR OF OSTEOPATHY DX CHEST AP OR PA AND LATERAL 2 VIEWS Routine 06/09/2017 5:35 PM DOCTOR OF OSTEOPATHY GLUCOSE POCT, B Routine 06/09/2017 12:33 PM DOCTOR OF OSTEOPATHY MAGNESIUM, S Routine 06/09/2017 6:18 AM DOCTOR OF OSTEOPATHY PROTHROMBIN TIME (PT), P Routine 06/09/2017 6:18 AM DOCTOR OF OSTEOPATHY CBC WITHOUT DIFFERENTIAL, B Routine 06/09/2017 6:18 AM DOCTOR OF OSTEOPATHY ELPN WITH CREATININE SHEREEN, P Routine 06/09/2017 6:18 AM DOCTOR OF OSTEOPATHY PHOSPHORUS (INORGANIC), S Routine 06/09/2017 6:18 AM DOCTOR OF OSTEOPATHY CALCIUM, TOT, S/P Routine 06/09/2017 6:18 AM DOCTOR OF OSTEOPATHY MICROSCOPIC MANUAL Routine 06/08/2017 11:13 PM DOCTOR OF OSTEOPATHY CREATININE, RANDOM, U Routine 06/08/2017 11:13 PM DOCTOR OF OSTEOPATHY URINALYSIS WITH MICROSCOPIC Routine 06/08/2017 11:13 PM DOCTOR OF OSTEOPATHY CHLORIDE, RANDOM, U Routine 06/08/2017 11:13 PM DOCTOR OF OSTEOPATHY SODIUM, RANDOM, U Routine 06/08/2017 11:13 PM DOCTOR OF OSTEOPATHY DX CHEST PORTABLE POST-PICC PLACEMENT 1 VIEW Routine 06/08/2017 6:35 PM DOCTOR OF OSTEOPATHY GLUCOSE POCT, B Routine 06/08/2017 6:01 PM DOCTOR OF OSTEOPATHY ELPN WITH CREATININE SHEREEN, P Routine 06/08/2017 3:44 PM DOCTOR OF OSTEOPATHY GLUCOSE POCT, B Routine 06/08/2017 11:39 AM DOCTOR OF OSTEOPATHY GLUCOSE POCT, B Routine 06/08/2017 7:39 AM DOCTOR OF OSTEOPATHY ELPN WITH CREATININE SHEREEN, P Routine 06/08/2017 6:38 AM DOCTOR OF OSTEOPATHY CBC WITHOUT DIFFERENTIAL, B Routine 06/08/2017 6:38 AM DOCTOR OF OSTEOPATHY PROTHROMBIN TIME (PT), P Routine 06/08/2017 6:38 AM DOCTOR OF OSTEOPATHY DX CHEST PORTABLE 1 VIEW Routine 06/08/2017 6:35 AM DOCTOR OF OSTEOPATHY GLUCOSE POCT, B Routine 06/07/2017 9:52 PM DOCTOR OF OSTEOPATHY GLUCOSE POCT, B Routine 06/07/2017 6:06 PM DOCTOR OF OSTEOPATHY GLUCOSE POCT, B Routine 06/07/2017 11:43 AM DOCTOR OF OSTEOPATHY ELPN WITH CREATININE SHEREEN, P Routine 06/07/2017 11:43 AM DOCTOR OF OSTEOPATHY PROTHROMBIN TIME (PT), P Routine 06/07/2017 11:43 AM DOCTOR OF OSTEOPATHY CORTROSYN STIM/ANTONI Routine 06/07/2017 9:02 AM DOCTOR OF OSTEOPATHY THYROID FUNCTION CASCADE, S Routine 06/07/2017 9:02 AM DOCTOR OF OSTEOPATHY GLUCOSE POCT, B Routine 06/07/2017 7:48 AM DOCTOR OF OSTEOPATHY DX CHEST PORTABLE 1 VIEW Routine 06/07/2017 6:38 AM DOCTOR OF OSTEOPATHY ELPN WITH CREATININE SHEREEN, P Routine 06/07/2017 5:47 AM DOCTOR OF OSTEOPATHY PROTHROMBIN TIME (PT), P Routine 06/07/2017 5:47 AM DOCTOR OF OSTEOPATHY ABG W/COOX Routine 06/07/2017 5:47 AM DOCTOR OF OSTEOPATHY CBC WITHOUT DIFFERENTIAL, B Routine 06/07/2017 5:47 AM DOCTOR OF OSTEOPATHY GLUCOSE POCT, B Routine 06/06/2017 9:44 PM DOCTOR OF OSTEOPATHY ELPN WITH CREATININE SHEREEN, P Routine 06/06/2017 8:51 PM DOCTOR OF OSTEOPATHY GLUCOSE POCT, B Routine 06/06/2017 5:16 PM DOCTOR OF OSTEOPATHY ELPN WITH CREATININE SHEREEN, P Routine 06/06/2017 12:50 PM DOCTOR OF OSTEOPATHY GLUCOSE POCT, B Routine 06/06/2017 12:42 PM DOCTOR OF OSTEOPATHY PREPARE RED BLOOD CELLS Routine 06/06/2017 8:22 AM DOCTOR OF OSTEOPATHY ANTIBODY SCREEN, B Routine 06/06/2017 8:22 AM DOCTOR OF OSTEOPATHY ABORH, RBC Routine 06/06/2017 8:22 AM DOCTOR OF OSTEOPATHY ABG W/COOX Routine 06/06/2017 8:08 AM DOCTOR OF OSTEOPATHY GLUCOSE POCT, B Routine 06/06/2017 8:06 AM DOCTOR OF OSTEOPATHY DX CHEST PORTABLE 1 VIEW Routine 06/06/2017 6:45 AM DOCTOR OF OSTEOPATHY CBC WITHOUT DIFFERENTIAL, B Routine 06/06/2017 4:53 AM DOCTOR OF OSTEOPATHY PROTHROMBIN TIME (PT), P Routine 06/06/2017 4:53 AM DOCTOR OF OSTEOPATHY ELPN WITH CREATININE SHEREEN, P Routine 06/06/2017 4:53 AM DOCTOR OF OSTEOPATHY ELPN WITH CREATININE SHEREEN, P Routine 06/06/2017 2:57 AM DOCTOR OF OSTEOPATHY GLUCOSE POCT, B Routine 06/05/2017 9:40 PM DOCTOR OF OSTEOPATHY GLUCOSE POCT, B Routine 06/05/2017 5:36 PM DOCTOR OF OSTEOPATHY LACTATE, B/P Routine 06/05/2017 4:51 PM DOCTOR OF OSTEOPATHY GLUCOSE POCT, B Routine 06/05/2017 4:49 PM DOCTOR OF OSTEOPATHY ABG W/COOX Routine 06/05/2017 3:56 PM DOCTOR OF OSTEOPATHY GLUCOSE POCT, B Routine 06/05/2017 3:54 PM DOCTOR OF OSTEOPATHY DX CHEST PORTABLE 1 VIEW Routine 06/05/2017 3:10 PM DOCTOR OF OSTEOPATHY ABG AND ELECTROLYTES, B ([place] - [place]) Routine 06/05/2017 2:51 PM DOCTOR OF OSTEOPATHY GLUCOSE POCT, B Routine 06/05/2017 2:48 PM DOCTOR OF OSTEOPATHY GLUCOSE POCT, B Routine 06/05/2017 1:25 PM DOCTOR OF OSTEOPATHY ELECTROLYTE (CHEM 4) PANEL, S/P Routine 06/05/2017 12:35 PM DOCTOR OF OSTEOPATHY GLUCOSE POCT, B Routine 06/05/2017 12:14 PM DOCTOR OF OSTEOPATHY GLUCOSE POCT, B Routine 06/05/2017 11:26 AM DOCTOR OF OSTEOPATHY GLUCOSE POCT, B Routine 06/05/2017 10:31 AM DOCTOR OF OSTEOPATHY GLUCOSE POCT, B Routine 06/05/2017 9:33 AM DOCTOR OF OSTEOPATHY GLUCOSE POCT, B Routine 06/05/2017 8:37 AM DOCTOR OF OSTEOPATHY GLUCOSE POCT, B Routine 06/05/2017 8:00 AM DOCTOR OF OSTEOPATHY GLUCOSE POCT, B Routine 06/05/2017 6:41 AM DOCTOR OF OSTEOPATHY DX CHEST PORTABLE 1 VIEW Routine 06/05/2017 6:03 AM DOCTOR OF OSTEOPATHY GLUCOSE POCT, B Routine 06/05/2017 5:34 AM DOCTOR OF OSTEOPATHY GLUCOSE POCT, B Routine 06/05/2017 4:28 AM DOCTOR OF OSTEOPATHY ELPN WITH CREATININE SHEREEN, P Routine 06/05/2017 3:49 AM DOCTOR OF OSTEOPATHY ACTIVATED PARTIAL THROMBOPLASTIN TIME (APTT), P Routine 06/05/2017 3:49 AM DOCTOR OF OSTEOPATHY CBC WITHOUT DIFFERENTIAL, B Routine 06/05/2017 3:49 AM DOCTOR OF OSTEOPATHY ABG W/COOX Routine 06/05/2017 3:49 AM DOCTOR OF OSTEOPATHY PROTHROMBIN TIME (PT), P Routine 06/05/2017 3:49 AM DOCTOR OF OSTEOPATHY GLUCOSE POCT, B Routine 06/05/2017 3:44 AM DOCTOR OF OSTEOPATHY GLUCOSE POCT, B Routine 06/05/2017 2:48 AM DOCTOR OF OSTEOPATHY GLUCOSE POCT, B Routine 06/05/2017 1:36 AM DOCTOR OF OSTEOPATHY GLUCOSE POCT, B Routine 06/05/2017 12:50 AM DOCTOR OF OSTEOPATHY GLUCOSE POCT, B Routine 06/04/2017 11:49 PM DOCTOR OF OSTEOPATHY ACTIVATED PARTIAL THROMBOPLASTIN TIME (APTT), P Routine 06/04/2017 11:07 PM DOCTOR OF OSTEOPATHY ELPN WITH CREATININE SHEREEN, P Routine 06/04/2017 11:07 PM DOCTOR OF OSTEOPATHY ABG W/COOX Routine 06/04/2017 11:07 PM DOCTOR OF OSTEOPATHY FIBRINOGEN, P Routine 06/04/2017 11:07 PM DOCTOR OF OSTEOPATHY CBC WITHOUT DIFFERENTIAL, B Routine 06/04/2017 11:07 PM DOCTOR OF OSTEOPATHY LACTATE, B/P Routine 06/04/2017 11:07 PM DOCTOR OF OSTEOPATHY PROTHROMBIN TIME (PT), P Routine 06/04/2017 11:07 PM DOCTOR OF OSTEOPATHY ACT, POCT, B Routine 06/04/2017 11:06 PM DOCTOR OF OSTEOPATHY GLUCOSE POCT, B Routine 06/04/2017 11:04 PM DOCTOR OF OSTEOPATHY DX CHEST PORTABLE 1 VIEW Routine 06/04/2017 10:34 PM DOCTOR OF OSTEOPATHY ECG Routine 06/04/2017 10:13 PM DOCTOR OF OSTEOPATHY ABG W/COOX Routine 06/04/2017 8:19 PM DOCTOR OF OSTEOPATHY CALCIUM, IONIZED, S/B Routine 06/04/2017 8:19 PM DOCTOR OF OSTEOPATHY LACTATE, B/P Routine 06/04/2017 8:19 PM DOCTOR OF OSTEOPATHY GLUCOSE, WHOLE BLOOD Routine 06/04/2017 8:19 PM DOCTOR OF OSTEOPATHY POTASSIUM, B Routine 06/04/2017 8:19 PM DOCTOR OF OSTEOPATHY SODIUM, S/P Routine 06/04/2017 8:19 PM DOCTOR OF OSTEOPATHY ACT, POCT, B Routine 06/04/2017 8:18 PM DOCTOR OF OSTEOPATHY GLUCOSE POCT, B Routine 06/04/2017 8:18 PM DOCTOR OF OSTEOPATHY HEMOGLOBIN (HGB), POCT, B Routine 06/04/2017 8:17 PM DOCTOR OF OSTEOPATHY ACTIVATED PARTIAL THROMBOPLASTIN TIME (APTT), P Routine 06/04/2017 7:32 PM DOCTOR OF OSTEOPATHY FIBRINOGEN, P Routine 06/04/2017 7:32 PM DOCTOR OF OSTEOPATHY PROTHROMBIN TIME (PT), P Routine 06/04/2017 7:32 PM DOCTOR OF OSTEOPATHY CBC WITHOUT DIFFERENTIAL, B Routine 06/04/2017 7:32 PM DOCTOR OF OSTEOPATHY GLUCOSE POCT, B Routine 06/04/2017 7:27 PM DOCTOR OF OSTEOPATHY LACTATE, B/P Routine 06/04/2017 6:50 PM DOCTOR OF OSTEOPATHY GLUCOSE POCT, B Routine 06/04/2017 6:48 PM DOCTOR OF OSTEOPATHY ABG W/COOX Routine 06/04/2017 5:27 PM DOCTOR OF OSTEOPATHY GLUCOSE POCT, B Routine 06/04/2017 5:25 PM DOCTOR OF OSTEOPATHY GLUCOSE POCT, B Routine 06/04/2017 4:44 PM DOCTOR OF OSTEOPATHY GLUCOSE POCT, B Routine 06/04/2017 3:37 PM DOCTOR OF OSTEOPATHY DX CHEST PORTABLE 1 VIEW Routine 06/04/2017 3:04 PM DOCTOR OF OSTEOPATHY ACT, POCT, B Routine 06/04/2017 2:41 PM DOCTOR OF OSTEOPATHY PROTHROMBIN TIME (PT), P Routine 06/04/2017 2:41 PM DOCTOR OF OSTEOPATHY ACTIVATED PARTIAL THROMBOPLASTIN TIME (APTT), P Routine 06/04/2017 2:41 PM DOCTOR OF OSTEOPATHY CALCIUM, IONIZED, S/B Routine 06/04/2017 2:41 PM DOCTOR OF OSTEOPATHY ABG W/COOX Routine 06/04/2017 2:41 PM DOCTOR OF OSTEOPATHY LACTATE, B/P Routine 06/04/2017 2:41 PM DOCTOR OF OSTEOPATHY CBC WITHOUT DIFFERENTIAL, B Routine 06/04/2017 2:41 PM DOCTOR OF OSTEOPATHY FIBRINOGEN, P Routine 06/04/2017 2:41 PM DOCTOR OF OSTEOPATHY ELPN WITH CREATININE SHEREEN, P Routine 06/04/2017 2:41 PM DOCTOR OF OSTEOPATHY GLUCOSE POCT, B Routine 06/04/2017 2:31 PM DOCTOR OF OSTEOPATHY DX CHEST PORTABLE 1 VIEW Routine 06/04/2017 1:59 PM DOCTOR OF OSTEOPATHY ACTIVATED PARTIAL THROMBOPLASTIN TIME (APTT), P Routine 06/04/2017 12:37 PM DOCTOR OF OSTEOPATHY PLATELETS, B Routine 06/04/2017 12:37 PM DOCTOR OF OSTEOPATHY SODIUM, S/P Routine 06/04/2017 12:37 PM DOCTOR OF OSTEOPATHY ABG W/COOX Routine 06/04/2017 12:37 PM DOCTOR OF OSTEOPATHY FIBRINOGEN, P Routine 06/04/2017 12:37 PM DOCTOR OF OSTEOPATHY LACTATE, B/P Routine 06/04/2017 12:37 PM DOCTOR OF OSTEOPATHY PROTHROMBIN TIME (PT), P Routine 06/04/2017 12:37 PM DOCTOR OF OSTEOPATHY CALCIUM, IONIZED, S/B Routine 06/04/2017 12:37 PM DOCTOR OF OSTEOPATHY GLUCOSE, WHOLE BLOOD Routine 06/04/2017 12:37 PM DOCTOR OF OSTEOPATHY POTASSIUM, B Routine 06/04/2017 12:37 PM DOCTOR OF OSTEOPATHY ACT, POCT, B Routine 06/04/2017 12:36 PM DOCTOR OF OSTEOPATHY ACT, POCT, B Routine 06/04/2017 11:36 AM DOCTOR OF OSTEOPATHY POTASSIUM, B Routine 06/04/2017 11:05 AM DOCTOR OF OSTEOPATHY SODIUM, S/P Routine 06/04/2017 11:05 AM DOCTOR OF OSTEOPATHY GLUCOSE, WHOLE BLOOD Routine 06/04/2017 11:05 AM DOCTOR OF OSTEOPATHY CALCIUM, IONIZED, S/B Routine 06/04/2017 11:05 AM DOCTOR OF OSTEOPATHY ABG W/COOX Routine 06/04/2017 11:05 AM DOCTOR OF OSTEOPATHY ACT, POCT, B Routine 06/04/2017 10:49 AM DOCTOR OF OSTEOPATHY HXINTRA-OP AUTO TX Routine 06/04/2017 10:45 AM DOCTOR OF OSTEOPATHY ACT, POCT, B Routine 06/04/2017 10:15 AM DOCTOR OF OSTEOPATHY HEMOGLOBIN (HGB), POCT, B Routine 06/04/2017 10:14 AM DOCTOR OF OSTEOPATHY ACT, POCT, B Routine 06/04/2017 8:48 AM DOCTOR OF OSTEOPATHY POTASSIUM, B Routine 06/04/2017 8:42 AM DOCTOR OF OSTEOPATHY ABG W/COOX Routine 06/04/2017 8:42 AM DOCTOR OF OSTEOPATHY GLUCOSE, WHOLE BLOOD Routine 06/04/2017 8:42 AM DOCTOR OF OSTEOPATHY LACTATE, B/P Routine 06/04/2017 8:42 AM DOCTOR OF OSTEOPATHY SODIUM, S/P Routine 06/04/2017 8:42 AM DOCTOR OF OSTEOPATHY CALCIUM, IONIZED, S/B Routine 06/04/2017 8:42 AM DOCTOR OF OSTEOPATHY ANESTHESIOLOGY IMAGE EXAM Routine 06/04/2017 7:50 AM DOCTOR OF OSTEOPATHY ECHO TRANSESOPHAGEAL (JOSTIN) Routine 06/04/2017 7:37 AM DOCTOR OF OSTEOPATHY ECHOCARDIOLOGY IMAGE EXAM Routine 06/04/2017 6:45 AM DOCTOR OF OSTEOPATHY ECG Routine 06/01/2017 12:34 PM DOCTOR OF OSTEOPATHY US LOWER EXTREMITY VEINS Routine 06/01/2017 12:09 PM DOCTOR OF OSTEOPATHY US UPPER EXTREMITY ARTERIES GRAFT Routine 06/01/2017 12:08 PM DOCTOR OF OSTEOPATHY ABORH, RBC Routine 06/01/2017 11:56 AM DOCTOR OF OSTEOPATHY ANTIBODY SCREEN, B Routine 06/01/2017 11:55 AM DOCTOR OF OSTEOPATHY ABORH, RBC Routine 06/01/2017 11:55 AM DOCTOR OF OSTEOPATHY CBC WITH DIFFERENTIAL, B Routine 06/01/2017 10:37 AM DOCTOR OF OSTEOPATHY POTASSIUM, S/P Routine 06/01/2017 10:37 AM DOCTOR OF OSTEOPATHY SODIUM, S/P Routine 06/01/2017 10:37 AM DOCTOR OF OSTEOPATHY BUN (BLOOD UREA NITROGEN), S/P Routine 06/01/2017 10:37 AM DOCTOR OF OSTEOPATHY PROTHROMBIN TIME (PT), P Routine 06/01/2017 10:37 AM DOCTOR OF OSTEOPATHY CREATININE WITH EGFR, S/P Routine 06/01/2017 10:37 AM DOCTOR OF OSTEOPATHY HEMOGLOBIN A1C, B Routine 06/01/2017 10:37 AM DOCTOR OF OSTEOPATHY DX CHEST AP OR PA AND LATERAL 2 VIEWS Routine 06/01/2017 9:36 AM DOCTOR OF OSTEOPATHY CARDIOLOGY IMAGE EXAM Routine 05/08/2017 11:15 AM DOCTOR OF OSTEOPATHY CARDIAC CATHETERIZATION Routine 05/08/2017 11:08 AM DOCTOR OF OSTEOPATHY COENZYME Q10, TOTAL, P Routine 05/08/2017 7:52 AM DOCTOR OF OSTEOPATHY ALKALINE PHOSPHATASE, S/P Routine 05/08/2017 7:52 AM DOCTOR OF OSTEOPATHY LIPASE, S/P Routine 05/08/2017 7:52 AM DOCTOR OF OSTEOPATHY 25-HYDROXYVITAMIN D2 AND D3, S Routine 05/08/2017 7:52 AM DOCTOR OF OSTEOPATHY ALANINE AMINOTRANSFERASE (ALT), S/P Routine 05/08/2017 7:52 AM DOCTOR OF OSTEOPATHY BILIRUBIN, TOT, S/P Routine 05/08/2017 7:52 AM DOCTOR OF OSTEOPATHY ECG Routine 05/04/2017 8:36 AM CDT CBC [...] WRIST 3+ VIEWS Routine 05/29/2016 8:22 AM DOCTOR OF OSTEOPATHY DX HAND UNILATERAL 2 VIEWS Routine 05/29/2016 8:22 AM DOCTOR OF OSTEOPATHY DX FINGER UNILATERAL 2+ VIEWS Routine 05/29/2016 8:22 AM DOCTOR OF OSTEOPATHY CARDIAC CATHETERIZATION Routine 05/02/2016 10:50 AM CDT [...] period is included. Date Time Interrogation Session [id number] [facility] Type Interrogation Session Remote Scheduled [facility] Implantable Pulse Generator Minibus Driver [employer] [facility] Implantable Pulse Generator Type Defibrillator [facility] Implantable Pulse Generator Model D533 [facility] Implantable Pulse Generator Serial Number [id number] [facility] Implantable Pulse Generator Implant Date 20240319 [facility] Battery Remaining Percentage 100.00 % [facility] Battery Remaining Longevity 156.0 mo [facility] Battery Status Beginning of Service [facility] Capacitor Charge Time 10.000 [facility] Chandrakant Statistic RA Percent Paced 87.00 [facility] [employer] Statistic RV Percent Paced 6.00 [facility] Atrial Tachy Statistic AT/AF [place] Percent 0.00 [facility] Lead Channel Sensing Intrinsic Amplitude 4.600 [facility] Lead Channel Setting Sensing Sensitivity 0.25 [facility] Lead Channel Impedance Value 570 [facility] Lead Channel Measurements Date and Time 20250203 [facility] Lead Channel Setting Pacing Amplitude 2.000 [facility] Lead Channel Setting Pacing Pulse Width 0.4 [facility] Lead Channel Sensing Intrinsic Amplitude 6.800 [facility] Lead Channel Setting Sensing Sensitivity 0.60 [facility] Lead Channel Impedance Value 350 [facility] Lead Channel Pacing Threshold Amplitude 0.600 [facility] Lead Channel Pacing Threshold Pulse Width 0.4 [facility] Lead Channel Measurements Date and Time 20250202 [facility] Lead Channel Setting Pacing Amplitude 2.000 [facility] Lead Channel Setting Pacing Pulse Width 0.4 [facility] Chandrakant Setting Mode (NBG Code) DDDR [facility] Chandrakant Setting Lower Rate Limit 70 [facility] Chandrakant Setting AT Mode Switch Rate 170 [facility] [place] Setting Maximum Tracking Rate 120 [facility] [place] Setting Maximum Sensor Rate 120 [facility] [place] Setting PAV [place] 120 [facility] Chandrakant Setting CARLOS Delay 100 [facility] Therapy Statistic Recent Shocks Delivered 0 [employer] [facility] Therapy Statistic Recent Shocks Aborted 0 [facility] Therapy Statistic Recent ATP Delivered 0 [facility] Murj Shock Measured Impedance 71 [facility] Lead Channel Setting Sensing Polarity Bipolar [facility] Lead Channel Setting Sensing Polarity Bipolar [facility] Lead Channel Setting Pacing Polarity Bipolar [facility] Lead Channel Setting Pacing Polarity Bipolar [facility] Lead Channel Pacing Threshold Polarity Bipolar [facility] Lead Channel Pacing Threshold Polarity [...] 2 [facility] Implantable Lead Minibus Driver [employer] [facility] Implantable Lead Model 7841-52 [facility] Implantable Lead Location Right Atrium [facility] Implantable Lead Connection Status Connected [facility] Implantable Lead Serial Number [id number] [facility] Implantable Lead Implant Date 20240319 [facility] Implantable Lead Polarity Type Bipolar Lead [facility] Implantable Lead Special Function Lead length: 52.00 cm [facility] Implantable Lead Minibus Driver [employer] [facility] Implantable Lead Model 0672-59 [facility] Implantable Lead Location Right Ventricle [facility] Implantable Lead Connection Status Connected [facility] Implantable Lead Serial Number [id number] [facility] Implantable Lead Implant Date 20240319 [facility] Implantable Lead Polarity Type Unknown [facility] Implantable Lead Special Function [...] Stable mild dilation of the ascending aorta [id number] mm. ICD leads in the RA and RV. Small nonobstructing right renal calculi. Hepatic cysts. Degenerative changes of the spine. Stable anterior wedging of upperthoracic vertebral bodies. IMPRESSION: Mild nonspecific interstitial fibrotic changes are stable compared with aprior exam from 2019. Kevin HODGSON CT PROCEDURES Final Re sult * Dipstick, [...] ORDERABLES Catherine l Result Performing Organization Address [facility] [address]/[facility] Co de Phone Number [facility] [address] [place], [place] [id number] [place] [address] [facility] [address] [place] [address] * Microscopic Automated (12/29/2024 9:00 AM CDT) Microscopy Normal 12/29/2024 10:34 AM CDT DTL RBC None Seen <3 /hpf 12/29/2024 10:34 AM CDT DTL WBC None Seen /hpf 12/29/2024 10:34 AM CDT DTL Comment: ----REFERENCE VALUE---- <4 (Males) <11 (Females) Urine 12/29/2024 9:00 AM CDT 12/29/2024 9:50 AM CDT us Soft Results Interface LAB URINE ORDERABLES Catherine l Result Performing Organization Address [facility] [address]/[facility] Co de Phone Number [facility] [address] [place] [address], [facility] [address] [place] [address] * pH, Urine (12/29/2024 9:00 AM CDT) pH, U 6.5 4.5 - 8.0 12/29/2024 10: 42 AM CDT DTL Urine 12/29/2024 9:00 AM CDT 12/29/2024 9:50 AM CDT us Soft Results Interface LAB URINE ORDERABLES Catherine l Result Performing Organization Address City/[facility] [address]/[facility] Co de Phone Number [facility] [address] [place] [address] * Osmolality, Urine (12/29/2024 9:00 AM CDT) Pathologist [facility] [place] Osmolality, U 232 150 - 1150 mOsm/kg 12/29/2024 10:42 AM CDT DTL Urine 12/29/2024 9:00 AM CDT 12/29/2024 9:50 AM CDT us Soft Results Interface LAB URINE ORDERABLES Catherine l Result Performing Organization Address [facility] [address]/[facility] Co de Phone Number [facility] [address] [place] [address] * (ABNORMAL) Urinalysis, with Microscopic: Urine, Midstream [...] AM CDT 12/29/2024 9:50 AM CDT us Kalin Dumont M.D. LAB URINE ORDERABLES Final Result [facility] [address] [place] [address], [facility] DTL [facility] [address] [place] [address] * (TTE) 2D ECHO DOPPLER COLOR (12/08/2024 [...] CDT Status post coronary artery bypass graft(s) ([place], 06-04-2017). Patient refuses use of any ultrasound [...] Findings Status post coronary artery bypass graft(s) ([place], 06-04-2017). Patientrefuses use of any ultrasound enhancement [...] PROCEDURE S Final Result * Thyroid Function [place] (11/19/2024 11:08 AM CDT) Only the most recent of4 resultswithin the time period is included. Pathologist [facility] [place] TSH, Sensitive 3.4 0.3 - 4.2 mIU/L 11/19/2024 12:17 PM CDT DTL Blood (Blood, Venous) 11/19/2024 11:08 AM CDT 11/19/2024 11:44 AM CDT us Arminda Schaeffer M.D. LAB BLOOD ADD-ON Final Result [facility] [address] [place] [address], [facility] [address] [place] [address] * (ABNORMAL) Comprehensive Metabolic Panel (11/19/2024 11:08 AM CDT) Only the most recent of6 resultswithin the time period is included. Pathologist [facility] [place] Potassium, S 4.5 3.6 - 5.2 mmol/L [...] Schaeffer M.D. LAB BLOOD [place] [address], [facility] [place] [address] * ECG 12 Lead (11/19/2024 10:41 AM CDT) Only the most recent of15 resultswithin the time period is included. Ventricular Rate ECG/Min 74 BPM MUSE TN Interval 234 ms MUSE QRSD Interval 108 ms MUSE QT Interval 414 ms MUSE QTC Interval 459 ms MUSE R Ulman -52 degrees MUSE T Wave [place] 73 degrees MUSE 11/19/2024 10:4 1 AM [...] FVC 3.42 L 11/19/2024 11:08 AM CDT [facility] FEV1 2.09 L 11/19/2024 11:08 AM CDT [facility] FEV1/FVC 61.25 % 11/19/2024 11:08 AM CDT [facility] FNQ74-72% 0.96 L/s 11/19/2024 11:08 AM CDT [facility] PEF PRE 6.16 L/s 11/19/2024 11:08 AM CDT [facility] PIF PRE 5.61 L/s 11/19/2024 11:08 AM CDT [facility] Pre FEF50/FIF50 23.88 % 11:08 AM CDT [facility] FET PRE 14.78 sec 11/19/2024 11:08 AM CDT [facility] DLCO 17.56 ml/(min*mm Hg) 11/19/2024 11:08 AM CDT [facility] Pre % Pred VA SINGLE BREATH 5.80 L 11/19/2024 11:08 AM CDT [facility] TLC 6.74 L 11/19/2024 11:08 AM CDT [facility] FRC Pre 4.38 L 11/19/2024 11:08 AM CDT [facility] RV 3.41 L 11/19/2024 11:08 AM CDT [facility] RV % TLC PRE 50.62 % 11/19/2024 11:08 AM CDT [facility] PulseRest 70.00 1/min 11/19/2024 11:08 AM CDT [facility] 11/19/2024 9:10 AM CDT Impressions [facility] - 11/19/2024 11:08 AM CDT Abnormal. Borderline [...] Arminda Schaeffer M.D. PFT ORDERABLES Final Result [facility] NA * ICD DUAL CHAMBER INTERROGATION WITH PROGRAMMING (11/19/2024 8:42 AM CDT) Only the most recent of4 resultswithin the time period is included. Date Time Interrogation Session [facility] Implantable Pulse Generator Minibus Driver [employer] [facility] Implantable Pulse Generator Type Defibrillator [facility] Implantable Pulse Generator Model D533 [facility] Implantable Pulse Generator Serial Number [id number] [facility] Implantable Pulse Generator Implant Date 20240319 [facility] Battery Status [facility] Chandrakant Statistic RA Percent Paced 82.00 [facility] Chandrakant Statistic RV Percent Paced 7.00 [facility] Lead Channel Sensing Intrinsic Amplitude 2.300 [facility] Lead Channel Setting Sensing Sensitivity 0.25 [facility] Lead Channel Impedance Value 575 [facility] Lead Channel Pacing Threshold Amplitude 1.100 [facility] Lead Channel Pacing Threshold Pulse Width 0.4 [facility] Lead Channel Measurements Date and Time 20241119 [facility] Lead Channel Setting Pacing Amplitude 2.000 [facility] Lead Channel Setting Pacing Pulse Width 0.4 [facility] Lead Channel Sensing Intrinsic Amplitude 4.000 [facility] Lead Channel Setting Sensing Sensitivity [...] 3 [facility] Implantable Lead Minibus Driver [employer] [facility] Implantable Lead Model 7841-52 [facility] Implantable Lead Location Right [facility] Implantable Lead Connection Status Connected [facility] Implantable Lead Serial Number [id number] [facility] Implantable Lead Implant Date 20240319 [facility] Implantable Lead Special Function Lead length: 52.00 cm [facility] Implantable Lead Minibus Driver [employer] [facility] Implantable Lead Model 0672-59 [facility] Implantable Lead Location Right Ventricle [facility] Implantable Lead Connection Status Connected [facility] Implantable Lead Serial Number [id number] [facility] Implantable Lead Implant Date 20240319 [facility] Implantable Lead Special Function Lead length: 59.00 cm [facility] Anatomical Region Laterality Modality [...] M.D. LAB BLOOD ADD-[place] [address], [place] [address] * Type and Screen (with Reflex Antibody ID) (03/18/2024 11:06 AM CDT) Pathologist [facility] [place] ABORh O Pos Not applicable 03/18/2024 12:55 PM CDT ETRM Antibody Screen Negative Negative 03/18/2024 1:07 PM CDT ETRM Type & Screen Expiration 03/21/2024 23:59 03/18/2024 12:55 PM CDT ETRM Testing Location Paul DEFAULT 03/18/2024 11:44 AM CDT ETRM Blood (Blood, Venous) 03/18/2024 11:06 AM CDT 03/18/2024 11:44 AM CDT us Kemal Del-Martin Gu M.D. LAB BLOOD BANK TEST ORDERABLES Final Result [facility] [address] [place] [address], [place] ETRM [facility] [address] [place] [address] * (TTE) 2D ECHO DOPPLER COLOR (03/18/2024 [...] CDT Status post coronary artery bypass graft(s) ([place], 06-04-2017). LEFT VENTRICLE:Mildly enlarged left ventricular chamber [...] Findings Status post coronary artery bypass graft(s) ([place], 06-04-2017). LEFT VENTRICLE:Mildly enlarged left ventricular chamber [...] resultswithin the time period is included. Pathologist [facility] [place] Potassium, S 4.8 3.6 - 5.2 mmol/L [...] M.D. LAB BLOOD ADD-ON Final Resul t [facility] [address] [place] [address], [facility] [address] [place] [address] * HOLTER MONITOR - IN CLINIC SUPERVISOR FISH PROCESSING (12/18/2023 12:08 PM CDT) Only the most recent of5 resultswithin the time period is included. Bradycardia Runs 0 count HOLTER SENTINEL Min Heart Rate 46 ALEIAD R SENTINEL Holter Pauses 0 count HOLTER SENTINEL SVE Max Per Hour Time [id number] HOLTER SENTINEL SVE Percent Beats 0 percent HOLTER SENTINEL VT Max Rate Time [id number] HOLTER SENTINEL Max Heart Rate 106 ALEIDA R SENTINEL VT Longest 5 beats HOLTER SENTINEL VT Runs 17 count HOLTER SENTINEL SVE Max Per Hour 77 count HOLTER SENTINEL SVE Total Beats 421 count HOLTER SENTINEL VE Total Beats 16,415 count ALEIDA R SENTINEL Recording Date HOLTER SENTINEL VT Max Rate 124 HOLTER SENTINEL Mean Heart Rate 71 HOLTER SENTINEL VE Percent Beats 12 percent HOLTER SENTINEL Max Heart Rate Time [id number] HOLTER SENTINEL VT Longest Time [id number] HOLTER SENTINEL VE Max Per Hour 1,346 count HOLTER SENTINEL Analysis Date 20,240,625 ALEIDA R SENTINEL Min Heart Rate Time [id number] HOLTER SENTINEL VE Max Per Hour Time [id number] HOLTER SENTINEL AF Count 0 count HOLTER SENTINEL SVT Runs 0 count HOLTER SENTINEL Tachycardia Runs 0 count HOLTER SENTINEL 12/18/2023 12:0 6 PM CDT us Kemal Gu M.D. CV CARDIAC SERVICES PROCEDURES Final Result Performing Organization Address [facility] [address]/[facility] de Phone Number HOLTER SENTINEL NA * MR head/brain wo con-Outside MR Neuro (09/19/2023 2:55 PM CDT) Only the most recent of4 resultswithin the time period is included. Narrative [facility] - 10/02/2023 4:32 PM CDT This order [...] MRI PROCEDURES Final Result Performing Organization Address [facility] [address]/[facility] de Phone Number [facility] NA * CT angio head-Outside CT Neuro (09/19/2023 9:55 AM CDT) Only the most recent of3 resultswithin the time period is included. Narrative [facility] - 10/02/2023 4:40 PM CDT This order [...] PROCEDURES Final R esult Performing Organization Address [facility] [address]/[facility] Co de Phone Number [facility] NA [...] Provider Not In System IMG DIAGNOSTIC IMAGING TN OCEDURES Final Result Performing Organization Address City/[facility] [address]/ZIP Co de Phone Number [facility] NA * ECHO [...] PROCE DURES Final Result Performing Organization Address City/[facility] [address]/[facility] Co de Phone Number [facility] NA * MR Cardiac without and with IV Contrast (07/06/2023 12:32 PM DOCTOR OF OSTEOPATHY) Only the most recent of2 resultswithin the time period is included. Anatomical Region Laterality Modality Cardiac, Cardiovascular RST LOS, Thoracic ARZ LOS, Cardiovascular FLA LOS N/A Magnetic Resonance Impressions 07/06/2023 2:46 PM DOCTOR OF OSTEOPATHY 1. Linear mid-myocardial and subepicardial late enhancement [...] function. RVEF 45%. Narrative 07/06/2023 2:46 PM DOCTOR OF OSTEOPATHY EXAM: MR CARDIAC WITHOUT AND WITH IV [...] ult * Lipid Panel (07/06/2023 10:59 AM DOCTOR OF OSTEOPATHY) Only the most recent of8 resultswithin the time period is included. Triglycerides 121 mg/dL 07/06/2023 11:55 AM DOCTOR OF OSTEOPATHY DTL Comment: ----REFERENCE VALUE---- Normal: <150 mg/dL Borderline High: 150-199 mg/dL High: 200-499 mg/dL Very High: > or =500 mg/dL Cholesterol, Total 143 mg/dL 2023 11:55 AM DOCTOR OF OSTEOPATHY DTL Comment: ----REFERENCE VALUE---- Desirable: < 200 mg/dL Borderline High: 200 - 239 mg/dL High: > or = 240 mg/dL Cholesterol, LDL, Calculated 62 mg/dL 07/06/2023 11:55 AM DOCTOR OF OSTEOPATHY DTL Comment: ----REFERENCE VALUE---- Desirable: <100 mg/dL Above Desirable: 100-129 mg/dL Borderline High: 130-159 mg/dL High: 160-189 mg/dL Very High: >=190 mg/dL ----ADDITIONAL INFORMATION---- LDL cholesterol calculated using the Madrid/NIH equation. Cholesterol, HDL, S 60 >=40 mg/dL 07/06/2023 11:55 AM DOCTOR OF OSTEOPATHY DTL Cholesterol, Non-HDL, Calculated 83 mg/dL 07/06/2023 11:55 AM DOCTOR OF OSTEOPATHY DTL Comment: ----REFERENCE VALUE---- Desirable: <130 mg/dL Above Desirable: 130-159 mg/dL Borderline High: 160-189 mg/dL High: 190-219 mg/dL Very High: > or =220 mg/dL Fasting (8 HR or more) No 07/06/2023 11:37 AM DOCTOR OF OSTEOPATHY DTL Blood (Blood, Venous) 07/06/2023 10:59 AM DOCTOR OF OSTEOPATHY 07/06/2023 11:37 AM DOCTOR OF OSTEOPATHY us Neha Gardner M.D. LAB BLOOD ADD-ON Final Resul t Performing Organization Address City/[facility] [address]/[place] [address], [place] [address] * ALT (Alanine Aminotransferase) (07/06/2023 10:59 AM DOCTOR OF OSTEOPATHY) Only the most recent of2 resultswithin the time period is included. [facility] Alanine Aminotransferase (ALT), S 14 7 - 55 U/L 07/06/2023 11:55 AM DOCTOR OF OSTEOPATHY DT Blood (Blood, Venous) 07/06/2023 10:59 AM DOCTOR OF OSTEOPATHY 07/06/2023 11:37 AM DOCTOR OF OSTEOPATHY us Neha Gardner M.D. LAB BLOOD ADD-ON Final Resul t Performing Organization Address City/[facility] [address]/ZIP Co de Phone Number [facility] [address] [place] [address], [place] [address] * Pulmonary Function Tests (06/15/2023 10:28 AM DOCTOR OF OSTEOPATHY) Pathologist [facility] [place] PostFVC 3.53 L 06/15/2023 12:58 PM DOCTOR OF OSTEOPATHY [facility] [address] PostFEV1 2.25 L 06/15/2023 12:58 PM DOCTOR OF OSTEOPATHY [facility] [address] FEV1/FVC POST 63.77 % 06/15/2023 12:58 PM DOCTOR OF OSTEOPATHY [facility] [address] FEF 25-75 % POST 1.14 L/s 06/15/2023 12:58 PM DOCTOR OF OSTEOPATHY [facility] [address] PEF POST 7.34 L/s 06/15/2023 12:58 PM DOCTOR OF OSTEOPATHY [facility] [address] PIF POST 6.44 L/s 06/15/2023 12:58 PM DOCTOR OF OSTEOPATHY [facility] [address] Post FEF50/FIF50 20.99 % 06/15/2023 12:58 PM DOCTOR OF OSTEOPATHY [facility] FET POST 11.81 sec 06/15/2023 12:58 PM [facility] TLC 6.06 L 06/15/2023 12:58 PM [facility]OPATH[facility] FRC Pre 3.84 L 06/15/2023 12:58 PM DOCTOR OF OSTEOPATHY [facility] RV 2.62 L 06/15/2023 12:58 PM [facility] RV % TLC PRE 43.31 % 06/15/2023 12:58 PM DOCTOR OF OSTEOPATHY [facility] DLCO 22.57 ml/(min*mm Hg) 06/15/2023 12:58 PM [facility]OPATHY [facility] DLCOc 21.97 ml/(min*mm Hg) 06/15/2023 12:58 PM DOCTOR OF OSTEOPATHY [facility] HB 15.60 g(Hb)/dL 06/15/2023 12:58 PM [facility]OPATHY [facility] VA 5.98 L 06/15/2023 12:58 PM [facility]OPATHY [facility] FVC 3.07 L 06/15/2023 12:58 PM DOCTOR OF OSTEOPATHY [facility] FEV1 1.91 L 06/15/2023 12:58 PM [facility]OPATHY [facility] FEV1/FVC 62.18 % 06/15/2023 12:58 PM [facility]STEOPATHY [facility] QVZ35-34% 0.91 L/s 06/15/2023 12:58 PM DOCTOR OF OSTEOPATHY [facility] [address] PEF PRE 6.25 L/s 06/15/2023 12:58 PM DOCTOR OF OSTEOPATHY [facility] PIF PRE 6.02 L/s 06/15/2023 12:58 PM DOCTOR OF OSTEOPATHY [facility] Pre FEF50/FIF50 17.83 % 06/15/2023 12:58 PM DOCTOR OF OSTEOPATHY [facility] FET PRE 12.37 sec 06/15/2023 12:58 PM DOCTOR OF OSTEOPATHY [facility] SUBSTANCE POST Albuterol 06/15/2023 12:58 PM DOCTOR OF OSTEOPATHY [facility] 06/15/2023 10:2 8 AM DOCTOR OF OSTEOPATHY Impressions [facility] - 06/15/2023 12:58 PM DOCTOR OF OSTEOPATHY The FEV1 is mildly reduced with the [...] PFT ORDERABLES Final Result Performing Organization Address City/[facility] [address]/ZIP Co de Phone Number [facility] NA * Magnesium (06/15/2023 8:28 AM DOCTOR OF OSTEOPATHY) Only the most recent of4 resultswithin the time period is included. Magnesium, S 2.2 1.7 - 2.3 mg/dL 06/15/2023 9:38 AM DOCTOR OF OSTEOPATHY DTL Blood (Blood, Venous) 06/15/2023 8:28 AM DOCTOR OF OSTEOPATHY 06/15/2023 9:13 AM DOCTOR OF OSTEOPATHY us Neha Gardner M.D. LAB BLOOD ADD-ON Final Resul t [facility] [address] [place], [place] [address] [address] [place] [address] * (ABNORMAL) Prothrombin Time (PT) (06/15/2023 8:27 AM DOCTOR OF OSTEOPATHY) Only the most recent of18 resultswithin the time period is included. Prothrombin Time, P 36.9(H) 9.4 - 12.5 sec 06/15/2023 9:17 AM DOCTOR OF OSTEOPATHY DTL INR 3.3 0.9 - 1.1 06/15/2023 9:17 AM DOCTOR OF OSTEOPATHY DTL Comment: ----ADDITIONAL INFORMATION---- Standard intensity warfarin therapeutic range: 2.0 to 3.0 High intensity warfarin therapeutic range: 2.5 to 3.5 Blood (Blood, Venous) 06/15/2023 8:27 AM DOCTOR OF OSTEOPATHY 06/15/2023 8:55 AM DOCTOR OF OSTEOPATHY us Neha Gardner M.D. LAB BLOOD ADD-ON Final Resul t Performing Organization Address [facility] [address]/[facility] de Phone Number [facility] [address] [place], [place] [address] [address] * (TTE) 2D ECHO DOPPLER COLOR (05/23/2023 1:44 PM DOCTOR OF OSTEOPATHY) [facility] Ejection Fraction 56 MC CV EIMS Sinus [...] Region Laterality Modality Echocardiography 05/23/2023 1:10 PM DOCTOR OF OSTEOPATHY Impressions 05/23/2023 11:12 PM DOCTOR OF OSTEOPATHY Status post coronary artery bypass graft(s). Frequent [...] the Order-Level Documents. Narrative 05/23/2023 11:12 PM DOCTOR OF OSTEOPATHY For the complete report, see the Order-Level Documents. Hemodynamics Heart Rate: 81 BPM Blood Pressure: 165 / 81 mmHg Final Impressions 1. Mildly enlarged left ventricular chamber size. Ejection fraction 56% with [id number] variability in setting of frequent ventricular ectopic [...] left ventricular chamber size. Ejection fraction 56%with [id number] variability in setting of frequent ventricular ectopicbeats. [...] B-Type Natriuretic Peptide (BNP) (05/23/2023 12:26 PM DOCTOR OF OSTEOPATHY) Only the most recent of5 resultswithin the time period is included. NT-Pro BNP 996(H) <=540 pg/mL 05/23/2023 1:34 PM DOCTOR OF OSTEOPATHY DTL Comment: NT-proBNP values less than 300 [...] failure. Blood (Blood, Venous) 05/23/2023 12:26 PM DOCTOR OF OSTEOPATHY 05/23/2023 12:59 PM DOCTOR OF OSTEOPATHY us Neha Gardner M.D. LAB BLOOD ADD-ON Final Resul t [facility] [address] [place] [address], [place] DTL [facility] [address] [place] [address] * (ABNORMAL) Hemoglobin A1c (05/23/2023 12:26 PM DOCTOR OF OSTEOPATHY) Only the most recent of4 resultswithin the time period is included. Hemoglobin A1c, B 6.2(H) 4.0 - 5.6 % 05/23/2023 1:28 PM DOCTOR OF OSTEOPATHY DTL Comment: Hemoglobin A1c values of 5.7-6.4 percent indicate an increased risk for developing diabetes mellitus. In diabetic patients, HbA1c goals should be discussed with healthcare provider. Blood (Blood, Venous) 05/23/2023 12:26 PM DOCTOR OF OSTEOPATHY 05/23/2023 1:00 PM DOCTOR OF OSTEOPATHY us Neha Gardner M.D. LAB BLOOD ADD-ON Final Resul t [facility] [address] [place] [address], [place] [facility] [address] [place] [address] * (TTE) 2D ECHO DOPPLER COLOR AND CONTRAST (06/09/2022 4:08 PM DOCTOR OF OSTEOPATHY) Pathologist [facility] [place] Ejection Fraction 49 MC CV EIMS Sinus [...] Region Laterality Modality Echocardiography 06/09/2022 2:39 PM DOCTOR OF OSTEOPATHY Impressions 06/09/2022 4:12 PM DOCTOR OF OSTEOPATHY Status post coronary artery bypass graft(s). Frequent [...] the Order-Level Documents. Narrative 06/09/2022 4:12 PM DOCTOR OF OSTEOPATHY For the complete report, see the Order-Level [...] CBC with Differential, Blood (06/09/2022 11:37 AM DOCTOR OF OSTEOPATHY) Only the most recent of3 resultswithin the time period is included. Hemoglobin 15.3 13.2 - 16.6 g/dL 06/09/2022 12:24 PM DOCTOR OF OSTEOPATHY DTL Hematocrit 48.9(H) 38.3 - 48.6 % 06/09/2022 12:24 PM DOCTOR OF OSTEOPATHY DTL Erythrocytes 5.31 4.35 - 5.65 x10(12)/L 06/09/2022 12:24 PM DOCTOR OF OSTEOPATHY DTL MCV 92.1 78.2 - 97.9 fL 06/09/2022 12:24 PM DOCTOR OF OSTEOPATHY DTL RBC Distrib Width 14.2 11.8 - 14.5 % 06/09/2022 12:24 PM DOCTOR OF OSTEOPATHY DTL Platelet Count 201 135 - 317 x10(9)/L 06/09/2022 12:24 PM DOCTOR OF OSTEOPATHY DTL Leukocytes 5.9 3.4 - 9.6 x10(9)/L 06/09/2022 12:24 PM DOCTOR OF OSTEOPATHY DTL Neutrophils 3.20 1.56 - 6.45 x10(9)/L 06/09/2022 12:24 PM DOCTOR OF OSTEOPATHY DTL Lymphocytes 1.79 0.95 - 3.07 x10(9)/L 06/09/2022 12:24 PM DOCTOR OF OSTEOPATHY DTL Monocytes 0.62 0.26 - 0.81 x10(9)/L 06/09/2022 12:24 PM DOCTOR OF OSTEOPATHY DTL Eosinophils 0.24 0.03 - 0.48 x10(9)/L 06/09/2022 12:24 PM DOCTOR OF OSTEOPATHY DTL Basophils <0.03 0.01 - 0.08 x10(9)/L 06/09/2022 12:24 PM DOCTOR OF OSTEOPATHY DTL Blood (Blood, Venous) 06/09/2022 11:37 AM DOCTOR OF OSTEOPATHY 06/09/2022 12:15 PM DOCTOR OF OSTEOPATHY Neha Gardner M.D. LAB BLOOD ADD-ON Final Resul t [facility] [address] [place] [address], [facility] DTL [facility] [address] [place] [address] * US Abd Aortic Aneurysm Screen-Outside US Body (03/17/2022 8:10 AM CDT) Narrative [facility] - 05/10/2022 1:22 PM DOCTOR OF OSTEOPATHY This order has been created and auto-finalized to support the import of outside images. If available, original interpretation can be found on the Media Tab in Chart Review, in Document Viewer, or as an image in QREADS. If a re-interpretation or overread is required please follow defined workflow. us Provider Not In System IMG US PROCEDURES Final R esult Performing Organization Address City/[facility] [address]/[facility] Co de Phone Number II NA * KNEE, LEFT 1 or 2V-Outside Skeletal Xray (11/24/2021 9:15 AM CDT) Only the most recent of3 resultswithin the time period is included. Narrative [facility] - 05/10/2022 1:22 PM DOCTOR OF OSTEOPATHY This order has been created and auto-finalized to support the import of outside images. If available, original interpretation can be found on the Media Tab in Chart Review, in Document Viewer, or as an image in QREADS. If a re-interpretation or overread is required please follow defined workflow. us Provider Not In System IMG DIAGNOSTIC IMAGING TN OCEDURES Final Result Performing Organization Address [facility] [address]/[facility] de Phone Number [facility] NA * (ABNORMAL) SARS Coronavirus-2 RNA, V Symptomatic (07/05/2021 2:52 PM DOCTOR OF OSTEOPATHY) SARS-CoV-2 Specimen Source Swab, Nasopharynx 07/05/2021 11:04 PM DOCTOR OF OSTEOPATHY [facility] SARS CoV-2 RNA, TMA Detected(A) Undetected 07/05/2021 11:04 PM DOCTOR OF OSTEOPATHY [facility] Comment: SARS-CoV-2 RNA present. ----ADDITIONAL INFORMATION---- This molecular amplification test was performed using the Aptima SARS-CoV-2 assay ([employer] on the [employer] System under emergency use authorization (EUA) by the U.S. Food and Drug Administration. Fact sheets for this EUA assay can be found at the following links: For Healthcare Providers: https://www.fda.gov/media/424863/download For Patients: https://www.fda.gov/media/641363/download Varies (Nasopharynx) 07/05/2021 2:52 PM DOCTOR OF OSTEOPATHY 07/05/2021 5:13 PM DOCTOR OF OSTEOPATHY us Tana Brunner M.D. LAB MICROBIOLOGY - GENERAL ORDERABLES Final Result [facility] [address] [place] [address], [facility] [place] [address] [place] [address] * Interpretation of Outside MR Head (03/22/2021 [...] changes as noted. us Lauren Portillo M.D. IMIzaiah MRI PROCEDURES Final Res ult * Interpretation [...] DOPPLER COLOR AND CONTRAST (06/16/2020 1:43 PM DOCTOR OF OSTEOPATHY) Ejection Fraction 44 MC CV EIMS Wall [...] Laterality Modality Echocardiography 06/16/2020 12:2 7 PM DOCTOR OF OSTEOPATHY Impressions 06/16/2020 2:06 PM DOCTOR OF OSTEOPATHY Intravenous Lumason ultrasound enhancement agent(s) administered to [...] the Order-Level Documents. Narrative 06/16/2020 2:06 PM DOCTOR OF OSTEOPATHY For the complete report, see the Order-Level [...] (Thyroid-Stimulating Hormone - Sensitive) (06/16/2020 8:44 AM DOCTOR OF OSTEOPATHY) Only the most recent of3 resultswithin the time period is included. TSH, Sensitive 1.7 0.3 - 4.2 mIU/L 06/16/2020 10:03 AM DOCTOR OF OSTEOPATHY DTL Blood (Blood, Venous) 06/16/2020 8:44 AM DOCTOR OF OSTEOPATHY 06/16/2020 9:06 AM DOCTOR OF OSTEOPATHY us Neha Gardner M.D. LAB BLOOD ADD-ON Final Resul t Performing Organization Address [facility] de Phone Number [facility] [address] [place] [address], [facility] [address] [place] [address] * NM Cardiac Blood Pool MUGA (07/08/2019 11:12 AM DOCTOR OF OSTEOPATHY) 07/08/2019 9:10 AM DOCTOR OF OSTEOPATHY Narrative [employer] - 07/08/2019 11:45 AM DOCTOR OF OSTEOPATHY See PDF For Result Procedure Note Sly Glass M.D. - 07/08/2019 See PDF For Result us Neha Gardner M.D. IMG NM PROCEDURES Final Resu lt Performing Organization Address [facility] de Phone Number [facility] NA * CARDIOPULMONARY (VO2) EXERCISE TEST (01/21/2019 2:10 PM CDT) 01/21/2019 1:14 PM CDT Narrative CV MERGE - 01/21/2019 4:06 PM CDT See PDF For Result Procedure Note Deepa Abrams M.D. - 01/21/2019 See PDF For Result us Neha Gardner M.D. CV STRESS PROCEDURES Final R esult Performing Organization Address [facility] de Phone Number [employer] NA * Pulmonary Function Tests (01/21/2019 9:02 AM CDT) DLCO SINGLE BREATH POST 21.13 ml/(min*mm Hg) 01/21/2019 1:48 PM CDT [facility] DLCOC SINGLE BREATH POST 20.32 ml/(min*mm Hg) 01/21/2019 1:48 PM CDT [facility] SU[facility] HB 16.10 g(Hb)/dL 01/21/2019 1:48 PM CDT [facility] SUITE Post VA SINGLE BREATH 5.54 L 01/21/2019 1:48 PM CDT [facility] SUITE VC MAX POST 3.26 L 01/21/2019 1:48 PM CDT [facility] SUITE PostFVC 3.25 L 01/21/2019 1:48 PM CDT [facility] SUITE PostFEV1 2.11 L 01/21/2019 1:48 PM CDT [facility] SUITE FEV1/FVC POST 64.80 % 01/21/2019 1:48 PM CDT [facility] SUITE FEF 25-75 % POST 1.09 L/s 01/21/2019 1:48 PM CDT [facility] SUITE PEF POST 7.51 L/s 01/21/2019 1:48 PM CDT [facility] SUITE FET POST 10.17 sec 01/21/2019 1:48 PM CDT [facility] SUITE VC MAX PRE 3.54 L 01/21/2019 1:48 PM CDT [facility] SUITE FVC 3.54 L 01/21/2019 1:48 PM CDT [facility] SUITE FEV1 2.34 L 01/21/2019 1:48 PM CDT [facility] SUITE FEV1/FVC 65.94 % 01/21/2019 1:48 PM CDT [facility] SUITE BRY95-98% 1.31 L/s 01/21/2019 1:48 PM CDT [facility] SUITE PEF PRE 6.61 L/s 01/21/2019 1:48 PM CDT [facility] SUITE FET PRE 9.96 sec 01/21/2019 1:48 PM CDT [facility] SUITE MVV 71.93 L/min 01/21/2019 1:48 PM CDT [facility] SUITE SUBSTANCE POST NaN 01/21/2019 1:48 PM CDT [facility] SUITE DOSE POST NaN 01/21/2019 1:48 PM CDT [facility] SUITE % PRED VC MAX 101.21 % 01/21/2019 1:48 PM CDT [facility] SUITE FVC% 101.21 % 01/21/2019 1:48 PM CDT [facility] SUITE FEV1% 87.82 % 01/21/2019 1:48 PM CDT [facility] SUITE % PRED FEV1/FVC 86.46 % 01/21/2019 1:48 PM CDT [facility] SUITE % PRED FEF 25-75% 64.20 % 01/21/2019 1:48 PM CDT [facility] SUITE % PRED PEF 93.24 % 01/21/2019 1:48 PM CDT [facility] SUITE PRED VC MAX 3.50 L 01/21/2019 1:48 PM CDT [facility] SUITE PRED FVC 3.50 L 01/21/2019 1:48 PM CDT [facility] SUITE PRED FEV 1 2.66 L 01/21/2019 1:48 PM CDT [facility] SUITE PRED FEV1/FVC 76.27 % 01/21/2019 1:48 PM CDT [facility] SUITE PRED FEF 25-75% 2.03 L/s 01/21/2019 1:48 PM CDT [facility] SUITE PRED PEF 7.09 L/s 01/21/2019 1:48 PM CDT [facility] SUITE 01/21/2019 9:02 AM CDT us Neha Gardner M.D. PFT ORDERABLES Final Result Performing Organization Address City/[facility] [address]/ZIP Co de Phone Number [facility] NA * PET Cardiac Perfusion Rest and [...] Patent coronary artery bypass grafts. 3. 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 [place] CORONARY ARTERIES: Mild calcification of the left [...] graft to right coronary artery: Widely patent. [place] CORONARY ARTERIES: Mild calcification of the left [...] in the peripheral superior lingula (series 7, [id number]) is most likely infectious or inflammatory but [...] Patent coronary artery bypass grafts. 3. 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 LAB BLOOD ADD-ON Final Resul t [facility] [address] [place], [place] [address] * CRP (C-Reactive Protein) (12/31/2018 7:13 AM CDT) C-Reactive Protein (CRP), S <3.0 <=8.0 mg/L 01/03/2019 10:46 AM CDT Blood (Blood, Venous) 12/31/2018 7:13 AM CDT 01/03/2019 10:10 AM CDT us Neha Gardner M.D. LAB BLOOD ADD-ON Final Resul t [facility] [address] [place] [address], [facility] * (TTE) 2D ECHO DOPPLER COLOR AND [...] Panel with Creatinine Shereen (06/12/2017 6:50 AM DOCTOR OF OSTEOPATHY) Only the most recent of15 resultswithin the time period is included. Chloride, S 90(L) 98 - 107 MMOL/L [facility] BUN (Blood Urea Nitrogen), S 39(H) 8 - 24 MG/DL [facility] HX Bicarbonate, P/S 31(H) 22 - 29 MMOL/L [facility] Creatinine, Shereen 2.5(H) 0.7 - 1.2 MG/DL [facility] Sodium, P 134(L) 135 - 145 MMOL/L [facility] Potassium, P 3.6 3.6 - 5.2 MMOL/L [facility] Glucose, S 137 70 - 140 MG/DL [facility] Anion Gap 13 7 - 15 [facility] 06/12/2017 6:50 AM DOCTOR OF OSTEOPATHY 06/12/2017 6:50 AM DOCTOR OF OSTEOPATHY Elvin Moreno M.D. LAB BLOOD ADD-ON Final Resu lt Performing Organization Address City/[facility]/ZIP Co de Phone Number [facility] [address] * Glucose, POCT (06/10/2017 5:36 PM DOCTOR OF OSTEOPATHY) Only the most recent of44 resultswithin the time period is included. Last Intake 3-4 hours [facility] Glucose, POCT, B 106 70 - 140 MG/DL [facility] Sample Site, Blood Gas, POCT Capillary [facility] 06/10/2017 5:36 PM DOCTOR OF OSTEOPATHY 06/10/2017 5:36 PM DOCTOR OF OSTEOPATHY Historical Provider LAB POCT ORDERABLES-MANUAL F inal Result Performing Organization Address City/[facility] [address]/[facility] Co de Phone Number [facility] [address] * DX Chest Portable 1 View (06/10/2017 9:22 AM DOCTOR OF OSTEOPATHY) Only the most recent of9 resultswithin the time period is included. Anatomical Region Laterality Modality Chest N/A Radiographic Ayana ging 06/10/2017 9:22 AM DOCTOR OF OSTEOPATHY Impressions 06/10/2017 9:45 AM DOCTOR OF OSTEOPATHY Improved aeration of the lungs since 06/09/17 with decreased left basilar atelectasis. Right basilar chest tube. No pneumothorax. Mild right basilar atelectasis. Left PICC tip at the SVC/RA junction. Sternotomy. Mild pulmonary vascular congestion. Electronically signed by: Neha Coronel MD [phone] 10-Jun-2017 09:45 Narrative 06/10/2017 9:45 AM DOCTOR OF OSTEOPATHY 10-Jun-2017 09:22:00 Exam: Portable-Chest Indications: S/P CVS [...] congestion. Electronically signed by: Neha Coronel MD [phone] 10-Jun-2017 09:45 Maribell Roberts APRN C.N.P., M.S.N. IMG DIAGNOS TIC IMAGING PROCEDURES Final Result * DX Abdomen Portable Anterior Posterior 1 View (06/09/2017 6:25 PM DOCTOR OF OSTEOPATHY) Anatomical Region Laterality Modality Abdomen N/A Radiographic Ayana ging 06/09/2017 6:25 PM DOCTOR OF OSTEOPATHY Impressions 06/09/2017 8:19 PM DOCTOR OF OSTEOPATHY Nonobstructive bowel gas pattern with gas seen in the distal colon and rectum. 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 Electronically signed by: Kita Marin MD [phone] 09-Jun-2017 18:58 I have reviewed the films/images and agree with the above interpretation. Electronically signed by: Wesley Brock M.D. [phone] 09-Jun-2017 20:19 Narrative 06/09/2017 8:19 PM DOCTOR OF OSTEOPATHY 09-Jun-2017 18:25:00 Exam: Portable-Abdomen Indications: R/O ileus [...] SIjoints. Electronically signed by: Kita Marin MD [phone] 09-Jun-2017 18:58 I have reviewed the films/images and agree with the above interpretation. Electronically signed by: Wesley Brock M.D. [phone] 09-Jun-2017 20:19 Maribell Roberts APRN C.NSashaP., M.S.N. IMG DIAGNOS TIC IMAGING PROCEDURES Final Result * Phosphorus Inorganic (06/09/2017 6:18 AM DOCTOR OF OSTEOPATHY) Pathologist [facility] Phosphorus (Inorganic), S 4.1 2.5 - 4.5 MG/DL [facility] Comment:Drawn From PICC 06/09/2017 6:18 AM DOCTOR OF OSTEOPATHY 06/09/2017 6:18 AM DOCTOR OF OSTEOPATHY Narrative [facility] - 06/09/2017 8:57 AM DOCTOR OF OSTEOPATHY Drawn From PICC Elvin Moreno M.D. LAB BLOOD ADD-ON Final Resu lt [facility] [address] [place], [place] [address] * (ABNORMAL) Calcium, Total (06/09/2017 6:18 AM DOCTOR OF OSTEOPATHY) Pathologist [facility] [place] Calcium, Total, S 8.3(L) 8.9 - 10.1 MG/DL [facility] Comment:Drawn From PICC 06/09/2017 6:18 AM DOCTOR OF OSTEOPATHY 06/09/2017 6:18 AM DOCTOR OF OSTEOPATHY Narrative [facility] - 06/09/2017 8:57 AM DOCTOR OF OSTEOPATHY Drawn From PICC Elvin Moreno M.D. LAB BLOOD ADD-ON Final Resu lt [facility] [address] * Sodium, Random, Urine (06/08/2017 11:13 PM DOCTOR OF OSTEOPATHY) Pathologist [facility] [place] Sodium, Random, U 32 Interpret with other; clinical data. MMOL/L [facility] 06/08/2017 11:1 3 PM DOCTOR OF OSTEOPATHY 06/08/2017 11:13 PM DOCTOR OF OSTEOPATHY Maribell Roberts APRN, C.N.P., M.S.N. LAB URINE O RDERABLES Final Result Performing Organization Address [facility] Co de Phone Number [facility] [address] * (ABNORMAL) Microscopic Manual (06/08/2017 11:13 PM DOCTOR OF OSTEOPATHY) Dysmorphic RBC <25 <25 % [facility] WBC 1-3 1-3 (Males); 1-10 (Females) /HPF [facility] Microscopy Abnormal [facility] Blood 21-30(A) <3 /HPF [facility] Casts, Hyaline 1-3 /LPF [facility] 06/08/2017 11:1 3 PM DOCTOR OF OSTEOPATHY 06/08/2017 11:13 PM DOCTOR OF OSTEOPATHY Maribell Roberts APRN, C.N.P., M.S.N. LAB URINE O RDERABLES Final Result Performing Organization Address City/[facility] [address]/ZIP Co de Phone Number [facility] [address] * Creatinine, Random, Urine (06/08/2017 11:13 PM DOCTOR OF OSTEOPATHY) Creatinine, Random, U 52 Used to normalize other; values. MG/DL [facility] 06/08/2017 11:1 3 PM DOCTOR OF OSTEOPATHY 06/08/2017 11:13 PM DOCTOR OF OSTEOPATHY Manpreet Dunaway APRNNUmberto., M.S.N. LAB URINE O RDERABLES Final Result Performing Organization Address City/[facility] [address]/[facility] Co de Phone Number [facility] [address] * Chloride, Random, Urine (06/08/2017 11:13 PM DOCTOR OF OSTEOPATHY) Chloride, Random, U 31 Interpret with other; clinical data. MMOL/L [facility] 06/08/2017 11:1 3 PM DOCTOR OF OSTEOPATHY 06/08/2017 11:13 PM DOCTOR OF OSTEOPATHY Getachew Dunaway APRN.N.P., M.S.N. LAB URINE O RDERABLES Final Result Performing Organization Address City/[facility] [address]/[facility] Co de Phone Number [facility] [address] * DX Chest Portable Post PICC Placement 1 View (06/08/2017 6:35 PM DOCTOR OF OSTEOPATHY) Anatomical Region Laterality Modality Chest N/A Radiographic Ayana ging 06/08/2017 6:35 PM DOCTOR OF OSTEOPATHY Impressions 06/08/2017 8:47 PM DOCTOR OF OSTEOPATHY Left PICC with tip in the upper SVC. Electronically signed by: Nereyda Hilton MD [phone] 08-Jun-2017 18:39 I have reviewed the films/images and agree with the above interpretation. Electronically signed by: Wesley Brock M.D. [phone] 08-Jun-2017 20:47 Narrative 06/08/2017 8:47 PM DOCTOR OF OSTEOPATHY 08-Jun-2017 18:35:00 Exam: Portable-Chest PICC Indications: Left - PICC Placement ORIGINAL REPORT - 08-Jun-2017 18:39:00 EXAM: Chest; 1 view Procedure Note Wesley Brock M.B., Ch.B. - 09/26/2017 08-Jun-2017 18:35:00 Exam: Portable-Chest PICC Indications: Left - PICC Placement ORIGINAL REPORT - 08-Jun-2017 18:39:00 EXAM: Chest; 1 view IMPRESSION: Left PICC with tip in the upper SVC. Electronically signed by: Nereyda Hilton MD [phone] 08-Jun-2017 18:39 I have reviewed the films/images and agree with the above interpretation. Electronically signed by: Wesley Brock M.D. [phone] 08-Jun-2017 20:47 Sherly Hay R.N. IMG DIAGNOSTIC IMAGING TN OCEDURES Final Result * Cortrosyn Stim/Antoni (06/07/2017 9:02 AM DOCTOR OF OSTEOPATHY) [facility] Cortisol, 60 Min 48 Not applicable MCG/DL [facility] Cortisol, Baseline 21 Not applicable MCG/DL [facility] Cortisol, 30 Min 42 Not applicable MCG/DL [facility] 06/07/2017 9:02 AM DOCTOR OF OSTEOPATHY 06/07/2017 9:02 AM DOCTOR OF OSTEOPATHY Elvin Moreno M.D. LAB BLOOD NON ADD-ON Final Result [facility] [address] * (ABNORMAL) Blood Gas with Coox, Arterial (06/07/2017 5:47 AM DOCTOR OF OSTEOPATHY) Only the most recent of11 resultswithin the time period is included. [facility] Signature Arterial Sample Site Art Line [facility] FIO2 0.53 .21=AIR [facility] pH 7.46(H) 7.35 - 7.45 PH [facility] Base Excess 5(H) -2 - 2 MMOL/L [facility] O2Hb 97.4 94.0 - 98.0 % [facility] COHb 1.1 <3.0 % [facility] Device NC [facility] Spont. breaths/min 18 [facility] pO2 121(H) 80 - 100 MM HG [facility] pCO2 40 35 - 45 MM HG [facility] HCO3 29(H) 22 - 26 MMOL/L [facility] Hb 9.7(L) 13.5 - 17.5 G/DL [facility] MetHb <1.0 <1.6 % [facility] CtO2 13.5(L) 21.0 - 23.0 VOL % [facility] 06/07/2017 5:47 AM DOCTOR OF OSTEOPATHY 06/07/2017 5:47 AM DOCTOR OF OSTEOPATHY Elvin Moreno M.D. LAB BLOOD NON ADD-ON Final Result [facility] [address] * ABORh, RBC (06/06/2017 8:22 AM DOCTOR OF OSTEOPATHY) Only the most recent of3 resultswithin the time period is included. HXABO/RH BLOOD TYPE O Pos [facility] 06/06/2017 8:22 AM DOCTOR OF OSTEOPATHY Historical Provider LAB BLOOD BANK TEST ORDERABL ES Final Result [facility] [address] * Prepare Red Blood Cells (06/06/2017 8:22 AM DOCTOR OF OSTEOPATHY) HXRBC # UNITS TRANSFUSED 1 [facility] HXRBC UNIT INFO RBC [facility] Comment: Unit Blood Type O Pos Unit Number [id number] Component Type Red Blood Cells - -3 Leukoreduced Issue Date/Time [id number] 06/06/2017 8:22 AM DOCTOR OF OSTEOPATHY Historical Provider BLOOD BANK PRODUCT ORDERABLE S Final Result Performing Organization Address [facility] de Phone Number [facility] [address] * Antibody Screen, RBC (06/06/2017 8:22 AM DOCTOR OF OSTEOPATHY) Only the most recent of2 resultswithin the time period is included. [facility] Antibody Screen Negative [facility] 06/06/2017 8:22 AM DOCTOR OF OSTEOPATHY [facility] Provider LAB BLOOD BANK TEST ORDERABL ES Final Result Performing Organization Address [facility] de Phone Number [facility] [address] * Lactate (06/05/2017 4:51 PM DOCTOR OF OSTEOPATHY) Only the most recent of7 resultswithin the time period is included. [facility] Lactate, P 0.8 0.6 - 2.3 MMOL/L [facility] 06/05/2017 4:51 PM DOCTOR OF OSTEOPATHY 06/05/2017 4:51 PM DOCTOR OF OSTEOPATHY Pete Baker P.A.-C. LAB BLOOD NON ADD-ON Fi nal Result Performing Organization Address [facility] de Phone Number [facility] [address] * (ABNORMAL) ABG and Lytes, POCT (06/05/2017 2:51 PM DOCTOR OF OSTEOPATHY) [facility] Arterial Sample Site Artline [facility] Comment: ADDITIONAL INFORMATION Performed at the Point of Care pH 7.41 7.35 - 7.45 [facility] Comment: ADDITIONAL INFORMATION Performed at the Point of Care Base Excess 3(H) -2 - 2 MMOL/L [facility] Comment: ADDITIONAL INFORMATION Performed at the Point of Care HCO3 27(H) 21 - 25 MMOL/L [facility] Comment: ADDITIONAL INFORMATION Performed at the Point of Care Sodium, B 138 135 - 145 MMOL/L [facility] Comment: ADDITIONAL INFORMATION Performed at the Point of Care Potassium, B 4.5 3.6 - 5.2 MMOL/L [facility] Comment: ADDITIONAL INFORMATION Performed at the Point of Care Calcium, Ionized, B 4.70 4.65 - 5.30 MG/DL [facility] Comment: ADDITIONAL INFORMATION Performed at the Point of Care pH 7.41 7.35 - 7.45 [facility] Comment: ADDITIONAL INFORMATION Performed at the Point of Care Glucose, POCT, B 127 70 - 140 MG/DL [facility] Comment: ADDITIONAL INFORMATION Performed at the Point of Care Hematocrit, POCT, B 23.0(L) 38.8 - 50.0 % [facility] Comment: ADDITIONAL INFORMATION Performed at the Point of Care pCO2 43 35 - 45 MM HG [facility] Comment: ADDITIONAL INFORMATION Performed at the Point of Care pO2 60(L) 70 - 100 MM HG [facility] Comment: ADDITIONAL INFORMATION Performed at the Point of Care 06/05/2017 2:51 PM DOCTOR OF OSTEOPATHY 06/05/2017 2:51 PM DOCTOR OF OSTEOPATHY us Historical Provider LAB BLOOD NON ADD-ON Final R esult [facility] [address] [place], [place] [id number] [place] [address] * (ABNORMAL) Electrolyte (Chem 4) Panel (06/05/2017 12:35 PM DOCTOR OF OSTEOPATHY) Sodium, S 140 135 - 145 MMOL/L [facility] Potassium, S 4.9 3.6 - 5.2 MMOL/L [facility] Creatinine 2.1(H) 0.8 - 1.3 MG/DL [facility] BUN (Blood Urea Nitrogen), S 27(H) 8 - 24 MG/DL [facility] Anion Gap 16(H) 7 - 15 [facility] Glucose, S 114 70 - 140 MG/DL [facility] Chloride, S 99 98 - 107 MMOL/L [facility] HX Bicarbonate, P/S 25 22 - 29 MMOL/L [facility] 06/05/2017 12:3 5 PM DOCTOR OF OSTEOPATHY 06/05/2017 12:35 PM DOCTOR OF OSTEOPATHY Elvin Moreno M.D. LAB BLOOD ADD-ON Final Resu lt Performing Organization Address [facility] [address]/[facility] Co de Phone Number [facility] [address] * APTT (Activated Partial Thromboplastin Time) (06/05/2017 3:49 AM DOCTOR OF OSTEOPATHY) Only the most recent of5 resultswithin the time period is included. APTT, P 27 25 - 37 SEC [facility] 06/05/2017 3:49 AM DOCTOR OF OSTEOPATHY 06/05/2017 3:49 AM DOCTOR OF OSTEOPATHY Maria Del Carmen Bruce APRN C.N.P. LAB BLOOD ADD-ON Final Result Performing Organization Address [facility] [address]/[facility] Co de Phone Number [facility] [address] * (ABNORMAL) Fibrinogen (06/04/2017 11:07 PM DOCTOR OF OSTEOPATHY) Only the most recent of4 resultswithin the time period is included. Fibrinogen, P 198(L) 200 - 393 MG/DL [facility] 06/04/2017 11:0 7 PM DOCTOR OF OSTEOPATHY 06/04/2017 11:07 PM DOCTOR OF OSTEOPATHY us Hugo Aj P.A.-C. LAB BLOOD ADD-ON Final Result Performing Organization Address [facility] [address]/[facility] Co de Phone Number [facility] [address] * ACT (Activated Clotting Time), POCT (06/04/2017 11:06 PM DOCTOR OF OSTEOPATHY) Only the most recent of8 resultswithin the time period is included. Activated Clotting Time, POCT 131 84 - 139 SEC [facility] 06/04/2017 11:0 6 PM DOCTOR OF OSTEOPATHY 06/04/2017 11:06 PM DOCTOR OF OSTEOPATHY Historical Provider LAB POCT ORDERABLES - DEVICE Final Result Performing Organization Address [facility] Co de Phone Number [facility] [address] * Potassium, Blood (06/04/2017 8:19 PM DOCTOR OF OSTEOPATHY) Only the most recent of4 resultswithin the time period is included. Pathologist [facility] [place] Potassium, B 4.8 3.6 - 5.2 MMOL/L [facility] Comment:Drawn in OR 06/04/2017 8:19 PM DOCTOR OF OSTEOPATHY 06/04/2017 8:19 PM DOCTOR OF OSTEOPATHY Narrative [facility] - 06/04/2017 8:22 PM DOCTOR OF OSTEOPATHY Drawn in OR Elvin Moreno M.D. LAB BLOOD NON ADD-ON Final Result Performing Organization Address [facility] Co de Phone Number [facility] [address] * (ABNORMAL) Glucose, Whole Blood (06/04/2017 8:19 PM DOCTOR OF OSTEOPATHY) Only the most recent of4 resultswithin the time period is included. Pathologist [facility] [place] Glucose, S 168(H) 70 - 140 MG/DL [facility] Comment:Drawn in OR 06/04/2017 8:19 PM DOCTOR OF OSTEOPATHY 06/04/2017 8:19 PM DOCTOR OF OSTEOPATHY Narrative [facility] - 06/04/2017 8:22 PM DOCTOR OF OSTEOPATHY Drawn in OR Elvin Moreno M.D. LAB BLOOD ADD-ON Final Resu lt Performing Organization Address [facility] Co de Phone Number [facility] [address] * Sodium (06/04/2017 8:19 PM DOCTOR OF OSTEOPATHY) Only the most recent of9 resultswithin the time period is included. Sodium, B 141 135 - 145 MMOL/L [facility] Comment:Drawn in OR 06/04/2017 8:19 PM DOCTOR OF OSTEOPATHY 06/04/2017 8:19 PM DOCTOR OF OSTEOPATHY Narrative [facility] - 06/04/2017 8:23 PM DOCTOR OF OSTEOPATHY Drawn in OR us Elvin Moreno M.D. LAB BLOOD ADD-ON Final Resu lt Performing Organization Address City/[facility] [address]/ZIP Co de Phone Number [facility] [address] * Calcium, Ionized (06/04/2017 8:19 PM DOCTOR OF OSTEOPATHY) Only the most recent of5 resultswithin the time period is included. Pathologist [facility] [place] Calcium, Ionized, B 5.08 4.65 - 5.30 MG/DL [facility] Comment:Drawn in OR 06/04/2017 8:19 PM DOCTOR OF OSTEOPATHY 06/04/2017 8:19 PM DOCTOR OF OSTEOPATHY Narrative [facility] - 06/04/2017 8:22 PM DOCTOR OF OSTEOPATHY Drawn in OR us Elvin Moreno M.D. LAB BLOOD NON ADD-ON Final Result Performing Organization Address [facility] [address]/[facility] Co de Phone Number [facility] [address] * (ABNORMAL) Hemoglobin (HGB), POCT (06/04/2017 8:17 PM DOCTOR OF OSTEOPATHY) Only the most recent of2 resultswithin the time period is included. Pathologist [facility] [place] Hemoglobin, B 12.5(L) 13.5 - 17.5 G/DL [facility] 06/04/2017 8:17 PM DOCTOR OF OSTEOPATHY 06/04/2017 8:17 PM DOCTOR OF OSTEOPATHY Historical Provider LAB POCT ORDERABLES - DEVICE Final Result Performing Organization Address [facility] [address]/[facility] Co de Phone Number [facility] [address] * (ABNORMAL) Platelet Count (06/04/2017 12:37 PM DOCTOR OF OSTEOPATHY) HX Platelet Count 133(L) 150 - 450 X10(9)/L [facility] Comment:Drawn in OR 06/04/2017 12:3 7 PM DOCTOR OF OSTEOPATHY 06/04/2017 12:37 PM DOCTOR OF OSTEOPATHY Narrative [facility] - 06/04/2017 12:47 PM DOCTOR OF OSTEOPATHY Drawn in OR Historical Provider LAB BLOOD ADD-ON Final Resul t Performing Organization Address [facility] [address]/[facility] Co de Phone Number [facility] [address] * HX intra-Op Auto Tx (06/04/2017 10:45 AM DOCTOR OF OSTEOPATHY) Pathologist [facility] [place] HXRBC # UNITS TRANSFUSED 1.25 [facility] HXRBC UNIT INFO RBC [facility] Comment: Component Type Intraoperative Salvaged RBC Unit Number =[id number] Issue Date/Time [id number] Component Type Intraoperative Salvaged RBC Unit Number =[id number] Issue Date/Time [id number] 06/04/2017 10:4 5 AM DOCTOR OF OSTEOPATHY Historical Provider LAB HISTORICAL ORDERS Final Result Performing Organization Address [facility] Co de Phone Number [facility] [address] * ANESTHESIOLOGY IMAGE EXAM (06/04/2017 7:50 AM DOCTOR OF OSTEOPATHY) 06/04/2017 7:49 AM DOCTOR OF OSTEOPATHY Narrative [facility] - 06/04/2017 8:55 AM DOCTOR OF OSTEOPATHY This order has been created and auto-finalized to support the import of images acquired without order. The clinical documentation to support these images can be found on the encounter that produced images. us Provider Not In System IMG NON RAD IMAGING PROCE DURES Final Result Performing Organization Address [facility] [address]/[facility] Co de Phone Number [facility] NA * Echo Transesophageal (JOSTIN) (06/04/2017 7:37 AM DOCTOR OF OSTEOPATHY) Anatomical Region Laterality Modality Echocardiography 06/04/2017 7:37 AM DOCTOR OF OSTEOPATHY us Historical Provider CV ECHO PROCEDURES Final Res ult * Echocardiology Image Exam (06/04/2017 6:45 AM DOCTOR OF OSTEOPATHY) Only the most recent of4 resultswithin the time period is included. Anatomical Region Laterality Modality Other 06/04/2017 6:45 AM DOCTOR OF OSTEOPATHY Addenda Addendum by Provider, Dianna Samuel on 06/04/2017 6:45 AM DOCTOR OF OSTEOPATHY ECHO^^^MCR INTRAOP 06/04/2017 06:45:08 INTRAOP us Historical Provider IMG NON RAD IMAGING PROCEDUR ES Final Result * US Lower Extremity Veins (06/01/2017 12:09 PM DOCTOR OF OSTEOPATHY) Anatomical Region Laterality Modality Vascular, Lower Extremity Ultras ound 06/01/2017 12:0 9 PM DOCTOR OF OSTEOPATHY Impressions 06/01/2017 12:14 PM DOCTOR OF OSTEOPATHY Both great saphenous veins are suitable in [...] [id number] 01-Jun-2017 12:14 Narrative 06/01/2017 12:14 PM DOCTOR OF OSTEOPATHY 01-Jun-2017 12:09:00 Exam: B US Lower Extremity [...] by: Bev Avendano MD. [id number] 01-Jun-2017 12:14 Kirsty Pennington P.A.-C. 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 The radial arteries should NOT be used for graft purposes. Electronically signed by: Bev Avendano MD. [id number] 01-Jun-2017 12:14 Narrative 06/01/2017 12:14 PM DOCTOR OF OSTEOPATHY 01-Jun-2017 12:08:00 Exam: B US Upper Extrem [...] BUN (Blood Urea Nitrogen) (06/01/2017 10:37 AM DOCTOR OF OSTEOPATHY) Only the most recent of3 resultswithin the time period is included. BUN (Blood Urea Nitrogen), S 21 8 - 24 MG/DL [facility] 06/01/2017 10:3 7 AM DOCTOR OF OSTEOPATHY 06/01/2017 10:37 AM DOCTOR OF OSTEOPATHY us Kirsty Pennington P.A.-C. LAB BLOOD ADD-ON Final R esult Performing Organization Address City/[facility] [address]/ZIP Co de Phone Number [facility] [address] * (ABNORMAL) Potassium (06/01/2017 10:37 AM DOCTOR OF OSTEOPATHY) Only the most recent of5 resultswithin the time period is included. Potassium, S 5.3(H) 3.6 - 5.2 MMOL/L [facility] 06/01/2017 10:3 7 AM DOCTOR OF OSTEOPATHY 06/01/2017 10:37 AM DOCTOR OF OSTEOPATHY us Kirsty Pennington P.A.-C. LAB BLOOD ADD-ON Final R esult Performing Organization Address City/[facility] [address]/ZIP Co de Phone Number [facility] [address] * Creatinine with Estimated GFR (MDRD) (06/01/2017 10:37 AM DOCTOR OF OSTEOPATHY) Only the most recent of5 resultswithin the time period is included. Creatinine 1.3 0.8 - 1.3 MG/DL [facility] 06/01/2017 10:3 7 AM DOCTOR OF OSTEOPATHY 06/01/2017 10:37 AM DOCTOR OF OSTEOPATHY Kirsty Pennington P.A.-C. LAB BLOOD ADD-ON Final R esult [facility] [address] [place], [place] [address] * Cardiology Image Exam (05/08/2017 11:15 AM DOCTOR OF OSTEOPATHY) Only the most recent of2 resultswithin the time period is included. Anatomical Region Laterality Modality Other 05/08/2017 11:1 5 AM DOCTOR OF OSTEOPATHY Addenda Addendum by Provider, Dianna Samuel on 05/08/2017 11:15 AM DOCTOR OF OSTEOPATHY CARD^^^MCR CATH 05/08/2017 11:15:04 CATH [facility] Provider IMG NON RAD IMAGING PROCEDUR ES Final Result * Cardiac Catheterization (05/08/2017 11:08 AM DOCTOR OF OSTEOPATHY) Anatomical Region Laterality Modality Other 05/08/2017 11:0 8 AM DOCTOR OF OSTEOPATHY [facility] Provider CV CARDIAC CATH PROCEDURES F inal Result * (ABNORMAL) Coenzyme Q10, Total, P (05/08/2017 7:52 AM DOCTOR OF OSTEOPATHY) Interpretation . [facility] Comment: In this sample, the total coenzyme Q10 concentration was elevated. This finding is likely related to supplementation. Other possible causes include cardiovascular diseases or hypercholesterolemia. ADDITIONAL INFORMATION High-Performance Liquid Chromatography (HPLC) with Electrochemical Detection This test was developed and its performance characteristics determined by [facility] in a manner consistent with CLIA requirements. This test has not been cleared or approved by the U.S. Food and Drug Administration. HX CoQ10 Total-[place] 2901(H) 433 - 1532 MCG/L [facility] Reviewed by . [facility] Comment:Deuce Gaitan 05/08/2017 7:52 AM DOCTOR OF OSTEOPATHY 05/08/2017 7:52 AM DOCTOR OF OSTEOPATHY us Neha Gardner M.D. LAB BLOOD ADD-ON Final Resul t Performing Organization Address [facility] Co de Phone Number [facility] [address] * 25-Hydroxyvitamin D2 and D3 (05/08/2017 7:52 AM DOCTOR OF OSTEOPATHY) 25-Hydroxy D2 <4.0 NG/ML [facility] 25-Hydroxy D3 44 NG/ML [facility] 25-Hydroxy D Total 44 SeeComment NG/ML [facility] Comment: REFERENCE VALUE 25-HYDROXY D TOTAL (D2+D3) Optimum levels in the healthy population are 20-50, patients with bone disease may benefit from higher levels within this range. ADDITIONAL INFORMATION This test was developed and its performance characteristics determined by [facility] in a manner consistent with CLIA requirements. This test has not been cleared or approved by the U.S. Food and Drug Administration. 05/08/2017 7:52 AM DOCTOR OF OSTEOPATHY 05/08/2017 7:52 AM DOCTOR OF OSTEOPATHY us Neha Gardner M.D. LAB BLOOD ADD-ON Final Resul t Performing Organization Address City/[facility] [address]/ZIP Co de Phone Number [facility] [address] * Alkaline Phosphatase (05/08/2017 7:52 AM DOCTOR OF OSTEOPATHY) Alkaline Phosphatase, S 67 45 - 115 U/L [facility] 05/08/2017 7:52 AM DOCTOR OF OSTEOPATHY 05/08/2017 7:52 AM DOCTOR OF OSTEOPATHY us Neha Gardner M.D. LAB BLOOD ADD-ON Final Resul t Performing Organization Address City/[facility] [address]/ZIP Co de Phone Number [facility] [address] * Lipase (05/08/2017 7:52 AM DOCTOR OF OSTEOPATHY) Lipase, S 49 10 - 73 U/L [facility] 05/08/2017 7:52 AM DOCTOR OF OSTEOPATHY 05/08/2017 7:52 AM DOCTOR OF OSTEOPATHY us Neha Gardner M.D. LAB BLOOD ADD-ON Final Resul t Performing Organization Address [facility] Co de Phone Number [facility] [address] * Bilirubin, Total (05/08/2017 7:52 AM DOCTOR OF OSTEOPATHY) Bilirubin, Total, S 1.0 <=1.2 MG/DL [facility] 05/08/2017 7:52 AM DOCTOR OF OSTEOPATHY 05/08/2017 7:52 AM DOCTOR OF OSTEOPATHY us Neha Gardner M.D. LAB BLOOD ADD-ON Final Resul t Performing Organization Address [facility] [address]/[facility] Co de Phone Number [facility] [address] * Glucose, Fasting (05/04/2017 8:26 AM CDT) Only the most recent of2 resultswithin the time period is included. Last Intake 14 HR [facility] Glucose, P 89 70 - 100 MG/DL [facility] 05/04/2017 8:2 6 AM CDT 05/04/2017 8:26 AM CDT Result Sarah Gardner M.D. LAB BLOOD NON ADD-ON Final R esult Performing Organization Address City/[facility] [address]/[facility] Co de Phone Number [facility] [address] * Echo Transthoracic (TTE) (12/13/2016 10:34 AM CDT) Anatomical Region Laterality Modality Echocardiography 12/13/2016 10:3 4 AM CDT us Neha Gardner M.D. CV ECHO PROCEDURES Final Res ult * DX Wrist 3+ Views (05/29/2016 8:22 AM DOCTOR OF OSTEOPATHY) Only the most recent of4 resultswithin the time period is included. Anatomical Region Laterality Modality Radiographic Ayana ging 05/29/2016 8:22 AM DOCTOR OF OSTEOPATHY Impressions 05/29/2016 8:33 AM DOCTOR OF OSTEOPATHY Since 03/02/2016, interval removal of the percutaneous [...] [id number] 29-May-2016 08:33 Narrative 05/29/2016 8:33 AM DOCTOR OF OSTEOPATHY 29-May-2016 08:22:00 Exam: R Wrist 3vw AP/Lat [...] Grayson MD 29-May-2016 08:33 us Dulce Angeles IMG DIAGNOSTIC IMAGING PROC EDURES Final Result * DX Hand 2 Views (05/29/2016 8:22 AM DOCTOR OF OSTEOPATHY) Anatomical Region Laterality Modality Upper Extremity, Hand N/A Radiograph ic Imaging 05/29/2016 8:22 AM DOCTOR OF OSTEOPATHY Impressions 05/29/2016 8:33 AM DOCTOR OF OSTEOPATHY Since 03/02/2016, interval removal of the percutaneous [...] swelling. Electronically signed by: Ashli Grayson MD 829-May-2016 08:33 Narrative 05/29/2016 8:33 AM DOCTOR OF OSTEOPATHY 29-May-2016 08:22:00 Exam: R Hand 2vw Indications: [...] swelling. Electronically signed by: Ashli Grayson MD 829-May-2016 08:33 Dulce Angeles IM DIAGNOSTIC IMAGING PROC EDURES Final Result * DX Finger 2+ Views (05/29/2016 8:22 AM DOCTOR OF OSTEOPATHY) Only the most recent of4 resultswithin the time period is included. Anatomical Region Laterality Modality Upper Extremity, Fingers N/A Radiogr aphic Imaging 05/29/2016 8:22 AM DOCTOR OF OSTEOPATHY Impressions 05/29/2016 8:33 AM DOCTOR OF OSTEOPATHY Since 03/02/2016, interval removal of the percutaneous [...] [id number] 29-May-2016 08:33 Narrative 05/29/2016 8:33 AM DOCTOR OF OSTEOPATHY 29-May-2016 08:22:00 Exam: R Thumb 3vw AP/Lat/Obl [...] swelling. Electronically signed by: Ashli Grayson MD [id number] 29-May-2016 08:33 Dulce Angeles IMG DIAGNOSTIC IMAGING PROC EDURES Final Result * Cardiac Catheterization (05/02/2016 10:50 AM CDT) Anatomical Region Laterality Modality Other 05/02/2016 10:5 0 AM CDT Historical Provider CV CARDIAC CATH PROCEDURES F inal Result * NM Cardiac Perfusion Rest and Stress SPECT (03/21/2016 12:07 PM CDT) 03/21/2016 12:0 7 PM CDT [facility] RADIOLOGY SYSTEM - 03/21/2016 1:46 PM CDT [...] Presented: About Your Nuclear Cardiology Stress Test ([id number]); Patient verbalized and demonstrated understanding.; Education Time in minutes: 15; MONITORING PERSONNEL: Primary Monitor: Sangeeta Alcaraz Tenon Machine Operator: Augustus Menard REFERRING PHYSICIAN: ANDREEA GARDNER III INTERPRETING PHYSICIAN: Amador Funez/Vinh Baxter Electronically signed by: Bev Funez MD. [id number] 21-Mar-2016 13:46 [facility] [place] RADIOLOGY SYSTEM - 03/21/2016 1:46 PM CDT [...] ;Presented: About Your Nuclear Cardiology Stress Test ([id number]); Patientverbalized and demonstrated understanding.; Education Time in minutes: 15; MONITORING PERSONNEL: Primary Monitor: Sangeeta Alcaraz Ten[place] Machine Operator:Augustus Menard REFERRING PHYSICIAN: ANDREEA GARDNER III INTERPRETING PHYSICIAN: Amador Funez/Vinh Baxter Electronically signed by: Bev Funez MD. [id number] 21-Mar-2016 13:46 Neha Gardner M.D. IMG NM PROCEDURES Final Resu lt [facility] [address] [place] [address] * Sestamibi Scan (03/21/2016 9:39 AM CDT) [...] to the tip of the distal ulna. Zyocl-alq-suqze fixation across the comminuted fracture of the 5th metacarpal. Fracture line remains visible. Healing fracture of the base of the 3rd proximal phalanx and the 1st proximal phalanx. 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 Scattered degenerative changes throughout the hand and wrist, most marked at the 1st CMC joint where it is advanced. Soft tissue swelling. Electronically signed by: Ashli Grayson MD [id number] 02-Mar-2016 09:58 Narrative 03/02/2016 9:58 AM CDT [...] adjacent to the tip of the distal ulna.Ydqdy-ywi-hdnsx fixation across the comminuted fracture of the 5thmetacarpal. Fracture line remains visible. Healing fracture of the base ofthe 3rd proximal phalanx and the 1st proximal phalanx. Chondrocalcinosisin the wrist. Scattered degenerative changes throughout the hand andwrist, most marked at the 1st CMC joint where it is advanced. Soft tissueswelling. Electronically signed by: Ashli Grayson MD 3-3 02-Mar-2016 09:58 us José Antonio Kauffman Jr., P.A.-C. [...] acquired. Electronically signed by: Torsten Pham MD [id number] 14-Jan-2016 16:13 Narrative 01/14/2016 4:13 PM CDT 14-Jan-2016 15:58:00 Exam: Fluoro Assistance less < 1hr Indications: OR 411, ortho, distal radius fracture, first distal phalanx fracture, fifth metacarpal fracture, ulnar styloid fracture, Right Open Reduction Internal Fixation-metacarpal fracture (fifth metacarpal); Right Extensor tendon repair (ring finger); Right Open Reduction Internal Fixation-distal radius fracture; Right Open Reduction Internal Vtptbktz-zjuaspw-buwnxy fracture (first finger), [facility] 88 ORIGINAL REPORT - 14-Jan-2016 16:13:00 [...] Reduction InternalFixation-distal radius fracture; Right Open Reduction IdzqnmtsGowlytbw-nzjaqol-eeoifk fracture (first finger), [facility] 88 ORIGINAL REPORT - 14-Jan-2016 16:13:00 EXAM: [...] by: Linda Al MD. [id number] 14-Jan-2016 15:32 us Ho Ferreira M.D. IMIzaiah CT PROCEDURES Final Result * PLASTIC AND RECON SURGERY IMAGE EXAM (01/14/2016 12:00 AM CDT) Anatomical Region Laterality Modality Other 01/14/2016 Addenda Addendum by Provider, Dianna Samuel on 01/14/2016 12:00 AM CDT PLS^^^MCR Elbow 01/14/2016 00:00:00 us Historical Provider IMG NON RAD IMAGING [...] hand. Electronically signed by: Manpreet Ovalles MD [phone] 14-Jan-2016 00:15 I have reviewed the films/images and agree with the above interpretation. Electronically signed by: Linda Al MD. [id number] 14-Jan-2016 09:15 Narrative 01/14/2016 9:15 AM CDT [...] hand. Electronically signed by: Manpreet Ovalles MD [phone] 14-Jan-2016 00:15 I have reviewed the films/images and agree with the above interpretation. Electronically signed by: Linda Al MD. [id number] 14-Jan-2016 09:15 Ho Ferreira M.D. IMG CT PROCEDURES Final Result * Echo Transthoracic (TTE) (02/10/2015 9:05 AM CDT) Anatomical Region Laterality Modality Echocardiography 02/10/2015 9:05 AM CDT us Nickolas Blake M.D., Ph.D. CV ECHO PROCEDURES Catherine l Result * Arterial Upper Extremity (10/11/2012 9:58 AM CDT) Anatomical Region Laterality Modality Other 10/11/2012 9:58 AM CDT Wesley Johansen II, M.D., D.P.M. CV CARDIAC CATH PROCEDURES Final Result * Sedimentation Rate (10/11/2012 9:50 AM CDT) Sedimentation Rate, B 0 0 - 22 MM/1 H [facility] 10/11/2012 9:50 AM CDT 10/11/2012 9:50 AM CDT us Neha Gardner M.D. LAB BLOOD ADD-ON Final Resul t Performing Organization Address City/[facility] [address]/ZIP Co de Phone Number [facility] [address] * LIZZIE (Antinuclear Antibodies) (10/11/2012 9:50 AM CDT) Antinuclear Ab, S 0.3 <=1.0 (Negative) U [facility] 10/11/2012 9:50 AM CDT 10/11/2012 9:50 AM CDT us Neha Gardner M.D. LAB BLOOD ADD-ON Final Resul t Performing Organization Address City/[facility] [address]/[facility] Co de Phone Number 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 ([facility]) 12/31/2018 Coronary Artery Disease (Unspecified) 01/07/2019 Cardiomyopathy Ischemic 01/07/2019 Pain Chest 01/07/2019 Dyspnea On Exertion 01/07/2019 Snoring 01/07/2019 Apnea Sleep Obstructive 01/07/2019 Coronary Artery Disease (Unspecified) 01/07/2019 Cardiomyopathy Ischemic 01/07/2019 Pain Chest 01/07/2019 Dyspnea On Exertion 01/07/2019 Snoring 01/07/2019 Apnea Sleep Obstructive 01/07/2019 Cardiomyopathy Ischemic 01/21/2019 Failure Heart ([facility]) 01/21/2019 Chronic Kidney Disease Stage 3 Glomerular Filtration Rate 30 To 59 01/21/2019 Hyperlipidemia 01/21/2019 Aneurysm Coronary Artery 01/21/2019 Coronary Artery Disease With Stable Angina 01/21/2019 Coronary Artery Disease (Unspecified) 01/21/2019 Cardiomyopathy Ischemic 01/21/2019 Pain Chest 01/21/2019 Dyspnea On Exertion 01/21/2019 Snoring 01/21/2019 Apnea Sleep Obstructive 01/21/2019 Failure Heart ([facility]) 07/08/2019 Beat Premature Ventricular 07/08/2019 Cardiomyopathy Ischemic 07/08/2019 Coronary Artery Disease With Stable Angina 07/08/2019 Aneurysm Coronary Artery 07/08/2019 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 ([facility]) 07/08/2019 Hyperlipidemia 07/08/2019 Cardiomyopathy Ischemic 07/08/2019 Failure Heart ([facility]) 07/08/2019 Chronic Kidney Disease Stage 3 Glomerular Filtration Rate 30 To 59 07/08/2019 Hyperlipidemia 07/08/2019 Aneurysm Coronary Artery 07/08/2019 Coronary Artery Disease With Stable Angina 07/08/2019 Cardiomyopathy Ischemic 07/08/2019 Failure Heart ([facility]) 07/08/2019 Chronic Kidney Disease Stage 3 Glomerular Filtration Rate 30 To 59 07/08/2019 Hyperlipidemia 07/08/2019 Aneurysm Coronary Artery 07/08/2019 Coronary Artery Disease With Stable Angina 07/08/2019 Cardiomyopathy Ischemic 07/09/2019 Failure Heart ([facility]) 07/21/2019 Beat Premature Ventricular 07/21/2019 Cardiomyopathy Ischemic 07/21/2019 Beat Premature Ventricular 06/14/2020 Cardiomyopathy Ischemic 06/14/2020 Coronary Artery Disease With Stable Angina 06/14/2020 Hyperlipidemia 06/14/2020 Cardiomyopathy Ischemic 06/16/2020 Coronary Artery Disease With Stable Angina 06/16/2020 Aneurysm Coronary Artery 06/16/2020 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 Glomerular Filtration Rate (GFR) 30 To 44 ([facility]) 06/16/2020 Ectopy Ventricular 06/16/2020 Beat Premature Ventricular 06/16/2020 Cardiomyopathy Ischemic 06/16/2020 Coronary Artery Disease With Stable Angina 06/16/2020 Hyperlipidemia 06/16/2020 Beat Premature Ventricular 06/16/2020 Cardiomyopathy Ischemic 06/16/2020 Coronary Artery Disease With Stable Angina 06/16/2020 Hyperlipidemia 06/16/2020 Stroke ([facility]) 01/07/2021 Stroke ([facility]) 01/19/2021 Stroke ([facility]) 03/21/2021 Stroke Cerebrovascular Accident Personal History 03/22/2021 Stroke Cerebrovascular Accident Personal History 03/22/2021 Cerebrovascular Disease 03/22/2021 Spells Neurological ([facility]) 03/22/2021 Contact With And (Suspected) Exposure To [...] Glomerular Filtration Rate (GFR) 30 To 44 ([facility]) 03/19/2024 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
--- OUTSIDE RECORDS SUMMARY | 2025-03-13 17:35 | XMS_ITS | Encounter Summary ---
Author Organization [facility] Address [address] [place] [id number] Care Team Providers Care Imaging Center Manager Name Role Phone Elsewhere, Pcp Primary Care Provider Unavailabl e Encounter Details Date Type Department Care Team (Late st Contact Info) Description 12/30/2024 Clinical Communication Department of Urology in [place], [place] [address] [place] [phone] Kalin Dumont M.D. [address] [place] [phone] Social History Tobacco Use Types Packs/Day Years [...] e alcohol) Not on a regular basis [facility] Utilities Answer Date Recorded In the [...] your living situation today? I have a [facility] to live 11/13/2024 Education Answer Date Recorded What is the highest level of school you have completed or the highest degree you have received? 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 [address] [place] [phone] 03/26/2025 2:30 PM CDT Procedure visit Department of Urology in [place], [place] [address] [place] [address] Emiliana Carrasco M.D. [address] [place] [phone] 03/27/2025 8:00 AM CDT Office Visit Department of Urology in [place], [place] [address] [place] [address] Kalin Dumont M.D. [address] [place] [phone] documented as of this encounter Visit Diagnoses Not on filedocumented in this encounter Care Teams Imaging Center Manager Relationship Specialty Start Date End Date Elsewhere, Pcp PCP - General Internal Medicine 06/12/24 documented as of this encounter
--- OUTSIDE RECORDS SUMMARY | 2025-03-13 17:35 | XMS_ITS | Encounter Summary ---
Author Organization [facility] Address [address] [place] [id number] Care Team Providers Care Hoist Mechanic Name Role Phone Elsewhere, Pcp Primary Care Provider Unavailabl e Reason for Visit * Reason Onset Date Comments Update on father's medications, etc 02/25/2025 Encounter Details Date Type Department Care Team (Latest Contact Info) Description 02/25/2025 Clinical Communication Department of Cardiovascular Medicine in [place], [place] [address] [place] [phone] Neha Gardner M.D. [address] [place] [phone] Update on father's medications, etc Social History Tobacco Use Types Packs/Day Years [...] e alcohol) Not on a regular basis [facility] Utilities Answer Date Recorded In the past 12 months has [employer], gas, oil, or water company threatened to [...] your living situation today? I have a [facility] place to live 11/13/2024 Education Answer Date Recorded What is the highest level of school you have completed or the highest degree you have received? 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 [address] [place] [phone] 03/26/2025 2:30 PM CDT Procedure visit Department of Urology in [place], [place] [address] [place] [phone] Emiliana Carrasco M.D. [address] [place] [phone] 03/27/2025 8:00 AM CDT Office Visit Department of Urology in [place], [place] [address] [place] [phone] Kalin Dumont M.D. [address] [place] [phone] documented as of this encounter Visit Diagnoses Not on filedocumented in this encounter Care Teams Hoist Mechanic Relationship Specialty Start Date End Date Elsewhere, Pcp PCP - General Internal Medicine 06/12/24 documented as of this encounter
[2025-03-13 17:37] VITALS: BP 143/78; PULSE 61; RESP 16; TEMP 36.5; O2SAT 97; BMI 33.6
--- NOTE | 2025-03-13 17:52 | ED.EYEPROB ---
HPI - Eye Problem General Time Seen by Provider: 17:52 Date Seen: 03/13/25 Chief complaint: Eye Problems Stated complaint: possible stroke Time Seen by Provider: 03/13/25 17:52 Source: patient and RN notes reviewed Mode of arrival: ambulatory Limitations: no limitations History of Present Illness HPI Narrative: This 79-year-old male was sent by a retinal specialist in [place] today to the ER. He was diagnosed with a new area of acute retinal artery occlusion. Patient is noted to have a stroke dating back 12/09/2023 on MRI. They are also old lesions present on this MRI. 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 Neurology at the time was consulted in thought it might be from a cholesterol plaque. Patient has been maintained on Eliquis 5 mg b.i.d. an aspirin 81 mg daily. Patient did increase his Crestor but went to 10 mg Sunday. With this visual loss he has a cloudy appearance that is been stable. On February 20 he started noting a new appearance above that area. He feels this area will change shapes at times. He had CT head and neck angio and head CT at that time. No new finding seen but he had chronic infarcts within the right superior frontal gyrus and left lateral cerebellum. He had additional unchanged chronic lacunar-type infarcts within the left caudate head and cerebellar hemispheres. Patient followed up with his primary care provider on March 09. She recommended that he touch base with his camp attendant that he had seen before last summer. The eye doctor he saw yesterday took pictures and sent him to a retinal specialist today. The retinal specialist thought he had a new area of acute retinal artery occlusion. He has been taking his 81 mg aspirin and his Eliquis 5 mg twice a day. He is here with his son and . He does have ICD in place. He was found to have atrial fibrillation on this on routine monitoring. Related Data Home Medications ?Medication ?Instructions ?Recorded ?Confirmed nitroglycerin 0.4 mg sublingual 0.4 mg sublingual Q5M PRN 02/02/22 03/13/25 tablet levetiracetam 500 mg tablet 500 mg PO BID 03/13/22 03/13/25 (Keppra) ascorbic acid (vitamin C) 500 mg 500 mg PO DAILY 10/14/22 03/13/25 tablet acetaminophen 325 mg tablet 650 mg PO Q6H PRN 09/19/23 03/13/25 aspirin 81 mg tablet,delayed 81 mg PO DAILY 09/19/23 03/13/25 release cholecalciferol (vitamin D3) 125 125 mcg PO DAILY 09/19/23 03/13/25 mcg (5,000 unit) capsule amiodarone 100 mg tablet 100 mg PO QDAY 12/13/23 03/13/25 tiotropium bromide 2.5 2 puff inhalation DAILY 03/13/25 03/13/25 mcg/actuation mist for inhalation (Spiriva Respimat) Previous Rx's ?Medication ?Instructions ?Recorded rosuvastatin 10 mg tablet 10 mg PO 3XW #45 tabs 05/28/24 apixaban 5 mg tablet (Eliquis) 5 mg PO BID #180 tabs 08/25/24 ezetimibe 10 mg tablet 10 mg PO DAILY for cholesterol #90 10/22/24 tabs cyanocobalamin (vitamin B-12) 1,000 mcg PO QDAY #90 tabs 10/23/24 1,000 mcg tablet torsemide 5 mg tablet 5 - 10 mg (1 - 2 x 5 mg) PO QAM 11/12/24 #135 tabs valsartan 160 mg tablet 160 mg PO BID #180 tabs 12/11/24 pantoprazole 40 mg tablet,delayed 40 mg PO DAILY #90 tabs 02/11/25 release carvedilol 6.25 mg tablet 9.375 - 12.5 mg (1.5 - 2 x 6.25 02/26/25 mg) PO BID #315 tabs meclizine 25 mg tablet 25 mg PO TID PRN dizziness #90 tabs 03/09/25 Allergies Allergy/AdvReac Type Severity Reaction Status Date / Time amlodipine Allergy Severe hives/rash Verified 03/13/25 17:47 Fgbdoth-[id number]-HqO Reductase AdvReac Intermediate myalgia Verified 03/13/25 17:47 Inhibitor iothalamate Allergy Severe had to do Uncoded 03/09/25 11:01 chest compressions and shock heart with angio dye Review of Systems Status of ROS: Reports: 6 or more systems reviewed and unremarkable except as noted in History and below [facility] Medical History Bradycardia ?R00.1 - Bradycardia, unspecified (ICD-10) History of CVA (cerebrovascular accident) (~08/2023) ?Z86.73 - Personal history of transient ischemic attack (TIA), and cerebral infarction without residual deficits (ICD-10) Ulnar neuropathy ?G56.20 - Lesion of ulnar nerve, unspecified upper limb (ICD-10) Arrhythmia ?I49.9 - Cardiac arrhythmia, unspecified (ICD-10) Former smoker ?Z87.891 - Personal history of nicotine dependence (ICD-10) Hyperlipidemia ?E78.5 - Hyperlipidemia, unspecified (ICD-10) 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 - Ventricular premature depolarization (ICD-10) Coronary artery aneurysm ?I25.41 - Coronary artery aneurysm (ICD-10) Cerebrovascular disease ?I67.9 - Cerebrovascular disease, unspecified (ICD-10) Ribs, multiple fractures ?S22.49XA - Multiple fractures of ribs, unspecified side, initial encounter for closed fracture (ICD-10) BPPV (benign paroxysmal positional vertigo) ?H81.10 - Benign paroxysmal vertigo, unspecified ear (ICD-10) Surgical History History of three vessel coronary artery bypass ?Z95.1 - Presence of aortocoronary bypass graft (ICD-10) History of surgery on right wrist ?Z98.890 - Other specified postprocedural states (ICD-10) History of carpal tunnel surgery of left wrist ?Z98.890 - Other specified postprocedural states (ICD-10) History of ankle surgery ?Z98.890 - Other specified postprocedural states (ICD-10) Family History Mother Asthma Maternal Grandmother Diabetes Family/Other Cardiomyopathy Father High blood pressure Social History Narrative: . is undergoing treatment for Multiple Myeloma and has some cognitive impairment. Son, Jelani, lives with them and sets up meds for the patient and his . Son works during the day and stops by the house or calls 1-5 times during the work day to check on them. Does not use illicit drugs Former smoker- quit in 2011 Occasional alcohol consumption Can ambulate without a walker but uses a four-wheel walker when he goes on longer walks so he can stop and rest. What is your current living situation?: I presently have a place to live Problems where you live: no known problems Problems where you live details: n/a In the past 12 months, utilities in danger of being shut off: no In past 12 months, lack of transportation kept you from medical appts, meetings, work, or getting things needed for daily living: no In the past 12 mos, have been you worried that your food would run out before you had money to buy more?: never true In the past 12 mos, the food you bought just didn't last and you didn't have money to buy more?: never true Highest level of school completed/degree received: Associate degree: occupational, technical, vocational program Smoking Status: Former smoker Do you use any of these nicotine containing products: None Second hand tobacco smoke exposure: No How often do you have a drink containing alcohol: never How many standard drinks containing alcohol do you have on a typical day: 1 or 2 How often do you have six or more drinks on one occasion: Never AUDIT-C Alcohol total score: 0 Non-prescribed substance use: denies use How often does anyone, including family, friends and others, physically hurt you: never How often does anyone, including family, friends and others, insult or talk down to you: never How often does anyone, including family, friends and others, threaten you with harm: never How often does anyone, including family, friends and others, scream or curse at you: never service: No Exam Const: Vital Signs, click to edit/add: Vital Signs - 24 hr 03/13/25 17:37 Temperature 97.7 F Pulse Rate [Pulse Oximeter] 61 Respiratory Rate 16 Blood Pressure [Le ft Upper Arm] 143/78 H Pulse Oximetry 97 Oxygen Delivery Me thod Room Air This 79-year-old male is brought in in wheelchair by family. He is wearing dark glasses. Visual testing not done given that he had just come from a retinal specialist. His speech is normal. Using his arms and legs normally. CV sounds regular, no murmur, normal S1-S2, no S3-S4. Lungs are clear, good air entry, no wheezing or tachypnea, no accessory muscle use. Documenting provider has reviewed patient's vital signs: yes Course Course ED Course: This patient is coming from a retinal specialist with concern of a new retinal artery occlusion, likely a branch occlusion as it is only a portion of his visual field. He is already anticoagulated on Eliquis an 81 mg aspirin. He is taking Crestor 10 mg 3 times a week on Sunday as per discussion from last year. He has an ICD placed now. We have discussed that I do not have MR capacity as it is a weekend an after hours and are MR is not compatible with his ICD. I will talk to Stroke Neurology, will have staff page them immediately. Reevaluation(s) Time of Reevaluation #1: 18:51 Reevaluation #1: Have reviewed with him recommendations from stroke Neurology at [facility]. Patient's son notes he has to get his mom home. He plans on going home. He notes these symptoms have been going on a couple weeks. Did review that is recommended that they follow-up somewhere where they can have Neuro-Ophthalmology possibly, Neurology, MR compatible with his ICD (was placed by [facility] about one year ago), further labs looking for potentially vasculitis cause. He has been on appropriate treatment for embolic phenomenon. Son states he needs to go home. Given that this is been going on a few weeks, I do not think he needs emergent transfer. Plan on discharging this patient. Did ask with a plan on following up, he plans on going to [facility]. Will make sure that imaging is sent. This is a difficult situation and ultimately I a.m. discharging the patient from our care here but have recommended further workup and follow-up. I do think the son will eventually get him to [facility] in do want to make sure that they have appropriate information. I will definitely contact them and let them now. I am not going to make these people sign against medical advice paperwork. Consultations Consultation #1: Dr. Lowry from stroke Neurology at [facility] did call back. We reviewed patient's current symptoms, the report from the retinal specialist and his history. He agrees that the patient needs more workup than what we can provide here even with neuro telehealth consultation. This could be vasculitic. He does agree that he needs to see Neurology, have a new MR and potentially even Neuro-Ophthalmology. Patient has had symptoms since about February 20 with these visual changes. It was initially maybe thought to be a retinal migraine but has been ongoing. Will talk to patient and see where they may want to go. Time: 18:37 Consultation #2: Have contacted triage nurse Geovanna at [facility]. Did give her the background information. Did let her know that I have asked Radiology to send patient's CT head, CT angio of head and neck from February 20 and MRI of his brain from last summer. I am not 100% positive that they will come tonight but do believe they will likely show up at some point this weekend. Time: 19:13 Vital Signs Vital signs: Initial Vital Signs Temperature 97.7 F 03/13/25 17:37 Temperature Source Temporal Artery Scan 03/13/25 17:37 Pulse Rate 61 03/13/25 17:37 Respiratory Rate 16 03/13/25 17:37 Blood Pressure 143/78 H 03/13/25 17:37 Blood Pressure Mean 99 03/13/25 17:37 Blood Pressure Position Sitting 03/13/25 17:37 Pulse Oximetry 97 03/13/25 17:37 Oxygen Delivery Method Room Air 03/13/25 17:37 Vital Signs Temperature 97.7 F 03/13/25 17:37 Pulse Rate 61 03/13/25 17:37 Respiratory Rate 16 03/13/25 17:37 Blood Pressure 143/78 H 03/13/25 17:37 Pulse Oximetry 97 03/13/25 17:37 Oxygen Delivery Method Room Air 03/13/25 17:37 Temperature 97.7 F 03/13/25 17:37 Pulse Rate 61 03/13/25 17:37 Respiratory Rate 16 03/13/25 17:37 Blood Pressure 143/78 H 03/13/25 17:37 Pulse Oximetry 97 03/13/25 17:37 Oxygen Delivery Method Room Air 03/13/25 17:37 Discharge Plan Discharge Clinical Impression: Branch retinal artery occlusion of right eye Patient Disposition: Home, Self-Care Condition: Unchanged Instructions: Ischemic Stroke (DC) Additional Instructions: It is recommended that you follow-up [facility] where you can have MRI of your brain that is compatible with your ICD, neurology consultation and possibly Neuro-Ophthalmology consultation. You need further laboratory workup looking for possible vasculitis causes of visual loss. We cannot provide that at [facility]. I understand that you are going home and you have had symptoms since February 20. You could have permanent or worsening visual loss depending on underlying etiology. I highly recommend that you seek further care tonight. You state that you are going to follow up at [facility], as per your approval, I will send imaging from February 20 to them and talked to the triage nurse so they have a note in case you do show up there. If you do decide to go to [facility], they certainly can contact us for records and do have some of our information already. Activity Level: Activity as Tolerated Prescriptions: No Action levetiracetam [Keppra] 500 mg tablet 500 mg PO BID amiodarone 100 mg tablet 100 mg PO QDAY meclizine 25 mg tablet 25 mg PO TID PRN (Reason: dizziness) Qty: 90 0RF Rx Instructions: one tablet three times daily for vertigo ascorbic acid (vitamin C) 500 mg tablet 500 mg PO DAILY acetaminophen 325 mg tablet 650 mg PO Q6H PRN cholecalciferol (vitamin D3) 125 mcg (5,000 unit) capsule 125 mcg PO DAILY aspirin 81 mg tablet,delayed release (DR/EC) 81 mg PO DAILY Spiriva Respimat 2.5 mcg/actuation mist 2 puff INHALATION DAILY nitroglycerin 0.4 mg tablet, sublingual 0.4 mg sublingual Q5M PRN Rx Instructions: do not exceed 3 doses per episode rosuvastatin 10 mg tablet 10 mg PO 3XW Qty: 45 3RF Rx Instructions: one tablet, 3 x weekly Eliquis 5 mg tablet 5 mg PO BID Qty: 180 3RF Rx Instructions: one tablet twice daily ezetimibe 10 mg tablet 10 mg PO DAILY Qty: 90 3RF cyanocobalamin (vitamin B-12) 1,000 mcg tablet 1,000 mcg PO QDAY Qty: 90 3RF Rx Instructions: one tablet once daily torsemide 5 mg tablet 5 - 10 mg PO QAM Qty: 135 3RF Rx Instructions: take one tablet every other day; the opposite days take 2 tablet ( alternate 5mg and 10mg every other day) valsartan 160 mg tablet 160 mg PO BID Qty: 180 1RF Rx Instructions: one tablet twice daily for blood pressure STOP losartan pantoprazole 40 mg tablet,delayed release (DR/EC) 40 mg PO DAILY Qty: 90 2RF Rx Instructions: for GERD carvedilol 6.25 mg tablet 9.375 - 12.5 mg PO BID Qty: 315 0RF Rx Instructions: 1.5 tabs in am, 1/2 tab at 5pm, 1 tab at hs. must administer with a meal/food Follow Up/Referrals: Yohana Watkins PA-C [Primary Care Provider, Family Practice] Stand Alone Forms: [facility] Info Instructions
== END 2025-03-13 19:12 | disposition home or self-care (01) ==
PROVIDERS: Emergency Provider Family Medicine; PCP Physician Assistant Medical
DX: H34.231 Retinal artery branch occlusion, right eye (principal); Z79.01 Long term (current) use of anticoagulants; Z79.899 Other long term (current) drug therapy
CPT/HCPCS: 99282; 99283